=== PATIENT | female | born 1955 | race Caucasian/White ===

== ENCOUNTER → 2016-07-29 | Outpatient (CLI) | payer MEDICARE ==
[~2016-07-29] MED LIST: ADVAIR; ALB6.8IN; ALBU8.5H4 IH; ALN70T PO; ALPR.5T; ALPR1T PO; ASCO500T20 PO; B12 INJECTION IM; CALC-196 PO; CHOL400C8 PO; CYAN10007 PO; FNT25TD TD; GUAI-554 PO; HYDR-3720 PO; LEVO750T24 PO; LEVO75TA6 PO; LEVOTHYROXINE; LORA1TAB PO; LVT.05T PO; NCT21TD TD; NF-ESOM40C; OXYC20TA4 PO; PRD20T PO; RT-SYMBINH IH; SCR1T; SIMV40TA2; SIMV40TA4 PO; TIOT18CA IH; TMXF10T; TMZP15C PO; TOMOXIFEN PO; VITA400T7 PO; VITAMIN E; VNL75CCR PO; VNL75T; ZLP10T PO
--- OUTSIDE RECORDS SUMMARY | 2016-07-29 11:08 | XMS REPORT | Continuity of Care Document ---
Author Author [facility] Organization [facility] Address Unknown Phone Unavailable Care Team Providers Care Product Safety Lead Name Role Phone Miguel Galindo PCP [phone] Source Comments Some departments are not documenting in the electronic medical record. If you do not see the information that you expected, contact Release of Information in the Health Information Management department at [phone] for further assistance in locating additional records.[facility] Active Allergies and Adverse Reactions No Active [...] Taken Blood Pressure 104/72 03/19/2008 9:55 AM SUPERVISOR VARNISH Pulse 73 03/19/2008 9:55 AM SUPERVISOR VARNISH Temperature 36.5 C (97.7 F) 03/19/2008 7:10 AM SUPERVISOR VARNISH Respiratory Rate - - Height 1.575 m (5' 2") 03/19/2008 7:10 AM SUPERVISOR VARNISH Weight 53.524 kg (118 lb) 03/19/2008 7:10 AM SUPERVISOR VARNISH Body Mass Index 21.58 03/19/2008 7:10 AM SUPERVISOR VARNISH Oxygen Saturation 96% 03/19/2008 9:55 AM SUPERVISOR VARNISH Plan of Care Health Maintenance Due Date Last Done Comments Physical (Comprehensive) 12/13/1963 Exam Pertussis Vaccine 12/13/1967 Tetanus Vaccine 1973 Cervical Cancer Screening 1977 Breast Cancer Screening 1996 Influenza Vaccine 01/14/2016 Colorectal Cancer 03/19/2018 03/19/2008 Screening Results from Last 3 Months Not on file
--- NOTE | 2016-08-01 14:13 | Diagnostic Imaging Report ---
EXAMINATION: Bilateral screening mammogram with a Computer Aided Detection (CAD) system. INDICATION: Screening. PERSONAL HISTORY: No current complaints were stated on the questionnaire. COMPARISON: 02/15/2012. FINDINGS: The breasts are composed of heterogeneously dense parenchyma which may decrease mammographic sensitivity. Surgical clips in the medial aspect of the left breast are seen. Allowing for technique and positional differences, no suspicious change is seen. IMPRESSION: Dense breasts with no definite change. ACR BI-RADS Category 2: Benign findings. Result letter will be mailed to the patient. Note: At least 10% of breast cancer is not imaged by mammography. Dictated by: Dictated on workstation # [id number]
== END ==
LOC: RAD 11:04
PROVIDERS: ATTEND Internal Medicine Hematology & Oncology
DX: Z12.31 Encounter for screening mammogram for malignant neoplasm of breast (principal)
CPT/HCPCS: 77067

== ENCOUNTER 2016-08-16 10:21 | Outpatient (RCR) | payer MEDICARE, OTHER ==
--- OUTSIDE RECORDS SUMMARY | 2016-07-19 08:57 | XMS REPORT | Continuity of Care Document ---
Author Author [facility] Organization [facility] Address Unknown Phone Unavailable Care Team Providers Care Packing Inspector Name Role Phone Miguel Galindo PCP [phone] Source Comments Some departments are not documenting in the electronic medical record. If you do not see the information that you expected, contact Release of Information in the Health Information Management department at [phone] for further assistance in locating additional records.[facility] Active Allergies and Adverse Reactions No Active Allergies Current Medications Prescription Sig. Disp. Refills Start End Date Status Date UNITHROID 75 mcg Tab Take 75 mcg by mouth Active Daily. XANAX 1 mg Tab Take 1 mg by mouth Three Active Times Daily. simvastatin (ZOCOR) 40 mg Take 40 mg by mouth At Active tablet Bedtime Daily. EFFEXOR XR 75 mg Cp24 Take 75 mg by mouth Active Daily. tamoxifen (NOLVADEX) 20 Take 20 mg by mouth Active mg tablet Daily. hydrocodone/acetaminophen Take 1 Tab by mouth Every Active (+) (VICODIN) 10/325 mg 6 Hours as needed for tablet Pain. Active Problems Not on file Social History Tobacco Use Types Packs/Day Years Used Date Never Assessed Last Filed Vital Signs Vital Sign Reading Time Taken Blood Pressure 104/72 03/19/2008 9:55 AM LOOPING MACHINE OPERATOR Pulse 73 03/19/2008 9:55 AM LOOPING MACHINE OPERATOR Temperature 36.5 C (97.7 F) 03/19/2008 7:10 AM LOOPING MACHINE OPERATOR Respiratory Rate - - Height 1.575 m (5' 2") 03/19/2008 7:10 AM LOOPING MACHINE OPERATOR Weight 53.524 kg (118 lb) 03/19/2008 7:10 AM LOOPING MACHINE OPERATOR Body Mass Index 21.58 03/19/2008 7:10 AM LOOPING MACHINE OPERATOR Oxygen Saturation 96% 03/19/2008 9:55 AM LOOPING MACHINE OPERATOR Plan of Care Health Maintenance Due Date Last Done Comments Physical (Comprehensive) 12/13/1963 Exam Pertussis Vaccine 12/13/1967 Tetanus Vaccine 1973 Cervical Cancer Screening 1977 Breast Cancer Screening 1996 Influenza Vaccine 01/14/2016 Colorectal Cancer 03/19/2018 03/19/2008 Screening Results from Last 3 Months Not on file
[2016-07-19 09:49] LABS: BASOPHILS % (AUTO) 0 % (0-10); EOSINOPHILS # (AUTO) 0.3 10^3/uL (0.0-0.3); EOSINOPHILS % (AUTO) 4 % (0-10); LYMPHOCYTES # (AUTO) 2.6 X 10^3 (1.0-4.0); LYMPHOCYTES % (AUTO) 37 % (12-44); MEAN CORPUSCULAR HEMOGLOBIN 29 PG (25-34); MEAN CORPUSCULAR HGB CONC 34 G/DL (32-36); MEAN CORPUSCULAR VOLUME 87 FL (80-99); MEAN PLATELET VOLUME 9.2 FL (7.4-10.4); MONOCYTES # (AUTO) 0.5 X 10^3 (0.0-1.0); MONOCYTES % (AUTO) 6 % (0-12); NEUTROPHILS # (AUTO) 3.8 X 10^3 (1.8-7.8); NEUTROPHILS % (AUTO) 53 % (42-75); PLATELET COUNT 267 10^3/uL (130-400); RED BLOOD COUNT 4.46 10^6/uL (4.35-5.85); RED CELL DISTRIBUTION WIDTH 13.2 % (10.0-14.5); WHITE BLOOD COUNT 7.2 10^3/uL (4.3-11.0)
[2016-07-19 10:19] LABS: ALANINE AMINOTRANSFERASE 12 U/L (0-55); ALBUMIN 4.1 G/DL (3.2-4.5); ANION GAP 10 MMOL/L (5-14); ASPARTATE AMINO TRANSFERASE 16 U/L (5-34); BILIRUBIN,TOTAL 0.2 MG/DL (0.1-1.0); BLOOD UREA NITROGEN 20 MG/DL (7-18); BUN/CREATININE RATIO 29; CALCIUM 9.4 MG/DL (8.5-10.1); CARBON DIOXIDE 23 MMOL/L (21-32); CHLORIDE 108 MMOL/L (98-107); CREATININE SERUM 0.68 MG/DL (0.60-1.30); GFR ESTIMATED > 60; GLUCOSE 80 MG/DL (70-105); LACTATE DEHYDROGENASE 178 U/L (125-220); POTASSIUM 3.5 MMOL/L (3.6-5.0); SODIUM 141 MMOL/L (135-145); TOTAL PROTEIN 6.8 G/DL (6.4-8.2)
[2016-07-19 10:42] LABS: THYROID STIMULATING HORMONE 9.68 UIU/ML (0.35-4.94)
[2016-08-16 10:44] LABS: BASOPHILS % (AUTO) 0 % (0-10); EOSINOPHILS # (AUTO) 0.2 10^3/uL (0.0-0.3); EOSINOPHILS % (AUTO) 3 % (0-10); LYMPHOCYTES # (AUTO) 2.5 X 10^3 (1.0-4.0); LYMPHOCYTES % (AUTO) 35 % (12-44); MEAN CORPUSCULAR HEMOGLOBIN 30 PG (25-34); MEAN CORPUSCULAR HGB CONC 34 G/DL (32-36); MEAN CORPUSCULAR VOLUME 88 FL (80-99); MEAN PLATELET VOLUME 9.7 FL (7.4-10.4); MONOCYTES # (AUTO) 0.6 X 10^3 (0.0-1.0); MONOCYTES % (AUTO) 8 % (0-12); NEUTROPHILS # (AUTO) 3.9 X 10^3 (1.8-7.8); NEUTROPHILS % (AUTO) 54 % (42-75); PLATELET COUNT 272 10^3/uL (130-400); RED BLOOD COUNT 4.47 10^6/uL (4.35-5.85); RED CELL DISTRIBUTION WIDTH 12.9 % (10.0-14.5); WHITE BLOOD COUNT 7.2 10^3/uL (4.3-11.0)
[2016-08-16 11:07] LABS: ALANINE AMINOTRANSFERASE 8 U/L (0-55); ALBUMIN 4.1 G/DL (3.2-4.5); ANION GAP 8 MMOL/L (5-14); ASPARTATE AMINO TRANSFERASE 16 U/L (5-34); BILIRUBIN,TOTAL 0.2 MG/DL (0.1-1.0); BLOOD UREA NITROGEN 18 MG/DL (7-18); BUN/CREATININE RATIO 26; CALCIUM 9.4 MG/DL (8.5-10.1); CARBON DIOXIDE 26 MMOL/L (21-32); CHLORIDE 105 MMOL/L (98-107); CREATININE SERUM 0.68 MG/DL (0.60-1.30); GFR ESTIMATED > 60; GLUCOSE 69 MG/DL (70-105); POTASSIUM 3.5 MMOL/L (3.6-5.0); SODIUM 139 MMOL/L (135-145); TOTAL PROTEIN 6.7 G/DL (6.4-8.2)
[2016-08-16 11:27] LABS: THYROID STIMULATING HORMONE 6.97 UIU/ML (0.35-4.94)
[2016-10-11] MEDS ORDERED: BENZ-13 PO (21:22)
[2016-10-11] MEDS ORDERED: BUDE90AE2 IH (21:22)
[2016-10-11] MEDS ORDERED: D-ME118S7 PO (21:22)
[2016-10-11] MEDS ORDERED: CEFD300C3 PO (21:22)
[2016-10-11] MEDS ORDERED: METH4TAB PO (21:22)
== END 2016-10-17 | disposition home or self-care (01) ==
LOC: ONC 10:21
PROVIDERS: ATTEND Internal Medicine Hematology & Oncology
DX: C83.84 Other non-follicular lymphoma, lymph nodes of axilla and upper limb (principal); Z85.3 Personal history of malignant neoplasm of breast; E03.9 Hypothyroidism, unspecified; J44.9 Chronic obstructive pulmonary disease, unspecified; K59.1 Functional diarrhea; R13.10 Dysphagia, unspecified; G47.30 Sleep apnea, unspecified; F17.210 Nicotine dependence, cigarettes, uncomplicated; Z79.899 Other long term (current) drug therapy
CPT/HCPCS: 36415; 80053; 83615; 84443; 85025; 99213

== ENCOUNTER 2016-10-11 19:04 | Emergency (ER) | payer MEDICARE ==
[~2016-10-11] VITALS: Ht 154.9 cm; Wt 52.2 kg
[2016-10-11] MEDS ORDERED: methylPREDNISolone 125 MG (Solu-MEDROL) VIAL IV STA (19:27)
[2016-10-11] MEDS ORDERED: RT-ALBUTEROL/IPRATROPIUM 3 ML (DUONEB) VIAL INH ONE (19:30)
[2016-10-11] MEDS ORDERED: DEXAMETHASONE 4 MG/ML SDV (DECADRON) IH ONE (19:30)
[2016-10-11 20:02] LABS: BASOPHILS % (AUTO) 0 % (0-10); EOSINOPHILS # (AUTO) 0.6 10^3/uL (0.0-0.3); EOSINOPHILS % (AUTO) 9 % (0-10); LYMPHOCYTES # (AUTO) 2.2 X 10^3 (1.0-4.0); LYMPHOCYTES % (AUTO) 30 % (12-44); MEAN CORPUSCULAR HEMOGLOBIN 29 PG (25-34); MEAN CORPUSCULAR HGB CONC 33 G/DL (32-36); MEAN CORPUSCULAR VOLUME 89 FL (80-99); MEAN PLATELET VOLUME 10.1 FL (7.4-10.4); MONOCYTES # (AUTO) 0.6 X 10^3 (0.0-1.0); MONOCYTES % (AUTO) 8 % (0-12); NEUTROPHILS # (AUTO) 3.9 X 10^3 (1.8-7.8); NEUTROPHILS % (AUTO) 53 % (42-75); PLATELET COUNT 224 10^3/uL (130-400); RED BLOOD COUNT 4.54 10^6/uL (4.35-5.85); RED CELL DISTRIBUTION WIDTH 12.9 % (10.0-14.5); WHITE BLOOD COUNT 7.3 10^3/uL (4.3-11.0)
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
[2016-10-11 20:12] LABS: ABG BASE EXCESS -1.6 MMOL/L (-2.5-2.5); ABG HCO3 23 MMOL/L (23-27); ABG OXYGEN SATURATION 100 % (94-100); ABG PCO2 45 MMHG (35-45); ABG PO2 195 MMHG (79-93); ABG TCO2 24.7 MMOL/L (21.0-31.0)
[2016-10-11 20:13] LABS: ABG PH 7.34 (7.37-7.43); ALLENS TEST POSITIVE
[2016-10-11 20:14] LABS: PATIENT TEMP 98.3
--- NOTE | 2016-10-11 20:19 | Diagnostic Imaging Report ---
INDICATION: Shortness of air and cough for 2 days COMPARISON STUDY: Chest from 02/18/13. FINDINGS: Frontal view of the chest demonstrates the lungs to be clear with emphysematous changes. Foreign body overlies the left lung apex. Heart size and vascularity are normal. Postoperative changes are seen in the right shoulder. IMPRESSION: There are some emphysematous changes mainly in the right upper lung. No acute findings are present. Dictated by: Dictated on workstation # [id number]
[2016-10-11 20:21] LABS: ALANINE AMINOTRANSFERASE 10 U/L (0-55); ALBUMIN 3.8 G/DL (3.2-4.5); ANION GAP 9 MMOL/L (5-14); ASPARTATE AMINO TRANSFERASE 15 U/L (5-34); BILIRUBIN,TOTAL 0.2 MG/DL (0.1-1.0); BLOOD UREA NITROGEN 12 MG/DL (7-18); BUN/CREATININE RATIO 20; CALCIUM 9.4 MG/DL (8.5-10.1); CARBON DIOXIDE 21 MMOL/L (21-32); CHLORIDE 112 MMOL/L (98-107); CREATINE KINASE 61 U/L (29-168); CREATININE SERUM 0.59 MG/DL (0.60-1.30); GFR ESTIMATED > 60; GLUCOSE 93 MG/DL (70-105); MAGNESIUM 1.7 MG/DL (1.8-2.4); POTASSIUM 3.9 MMOL/L (3.6-5.0); SODIUM 142 MMOL/L (135-145); TOTAL PROTEIN 6.1 G/DL (6.4-8.2)
[2016-10-11 20:22] LABS: ALCOHOL < 10 MG/DL (<10)
[2016-10-11 20:28] LABS: TROPONIN I < 0.30 NG/ML (<0.30)
[2016-10-11 20:55] LABS: INR 0.9 (0.8-1.4); PROTHROMBIN TIME PATIENT 11.9 SEC (12.2-14.7)
[2016-10-11] MEDS ORDERED: cefTRIAXone 1 GM (ROCEPHIN) VIAL ONE (20:58)
[2016-10-11] MEDS ORDERED: NS (IVPB) 50 ML ONE (20:59)
[2016-10-11] MEDS ORDERED: PROMETHAZINE/DM SYRUP (PHENERGDAN DM) 5 ML UDC PO ONE (21:00)
[2016-10-11] MEDS ORDERED: BENZONATATE 100 MG (TESSALON) CAPSULE PO SCH (21:00)
[2016-10-11] MEDS ORDERED: cefTRIAXone INJECTION 1,000 MG in NS (IVPB) 50 ML IV ONE (21:00)
[2016-10-11] MEDS ORDERED: METH4TAB PO (21:22)
[2016-10-11] MEDS ORDERED: D-ME118S7 PO (21:22)
[2016-10-11] MEDS ORDERED: BUDE90AE2 IH (21:22)
[2016-10-11] MEDS ORDERED: BENZ-13 PO (21:22)
[2016-10-11] MEDS ORDERED: CEFD300C3 PO (21:22)
[2016-10-11 21:51] VITALS: BP 139/87
== END 2016-10-11 21:51 | disposition home or self-care (01) ==
LOC: EDUNIT# 19:04 → ER 19:05
DX: J44.9 Chronic obstructive pulmonary disease, unspecified (principal); F17.210 Nicotine dependence, cigarettes, uncomplicated; Z79.899 Other long term (current) drug therapy; Z91.14 Patient's other noncompliance with medication regimen; Z85.3 Personal history of malignant neoplasm of breast; Z85.72 Personal history of non-Hodgkin lymphomas; Z92.3 Personal history of irradiation; Z92.21 Personal history of antineoplastic chemotherapy
CPT/HCPCS: 36415; 71010; 80053; 80306; 80320; 82550; 82553; 82805; 83605; 83735; 83880; 84484; 85025; 85610; 85730; 87040; 93005; 93041; 94640; 94644; 94664

== ENCOUNTER → 2018-02-08 | Outpatient (CLI) | payer MEDICARE ==
[~2018-02-08] MED LIST changes: +BENZ100C18 PO; +BUDE90AE2 IH; +CEFD300C3 PO; +D-ME118S7 PO; +METH4TAB PO
--- NOTE | 2018-02-09 19:46 | Diagnostic Imaging Report ---
EXAMINATION: Digital mammogram bilateral screening. INDICATION: Screening. The current study was also evaluated with a Computer Aided Detection (CAD) system. 3-D tomosynthesis was also performed and reviewed. COMPARISON: This study was compared to the prior exams of 07/29/2016 and 02/15/2012. At this time, there are no current complaints. FINDINGS: The fibroglandular tissue in both breasts is extremely dense. This does limit the sensitivity of this exam. By history, the patient has had a prior lumpectomy on the left for carcinoma in 2003. The surgical clips in the medial aspect of the left breast seen on the prior study are again evident and no different. There is no sign of recurrent malignancy in this area. The overall appearance of the breasts has not changed significantly either. There is no primary or secondary sign of malignancy noted. IMPRESSION: 1. The postsurgical changes involving the left breast appear stable. There is no evidence for malignancy involving either breast. 2. The patient should have her annual bilateral screening mammogram on schedule in January of 2019. ACR BI-RADS Category 1: Negative. Result letter will be mailed to the patient. Note: At least 10% of breast cancer is not imaged by mammography. Dictated by: Dictated on workstation # [id number]
== END ==
LOC: RAD 10:37
PROVIDERS: ATTEND Physician Assistant
DX: Z12.31 Encounter for screening mammogram for malignant neoplasm of breast (principal); Z85.3 Personal history of malignant neoplasm of breast; Z98.890 Other specified postprocedural states
CPT/HCPCS: 77067

== ENCOUNTER 2018-07-13 12:06 | Emergency (ER) | payer MEDICARE ==
[~2018-07-13] VITALS: Ht 157.5 cm; Wt 54.4 kg
[2018-07-13 12:28] LABS: BASOPHILS % (AUTO) 0 % (0-10); EOSINOPHILS # (AUTO) 0.7 10^3/uL (0.0-0.3); EOSINOPHILS % (AUTO) 8 % (0-10); HEMATOCRIT 47 % (35-52); HEMOGLOBIN 14.9 G/DL (11.5-16.0); LYMPHOCYTES # (AUTO) 2.9 X 10^3 (1.0-4.0); LYMPHOCYTES % (AUTO) 32 % (12-44); MEAN CORPUSCULAR HEMOGLOBIN 29 PG (25-34); MEAN CORPUSCULAR HGB CONC 32 G/DL (32-36); MEAN CORPUSCULAR VOLUME 90 FL (80-99); MEAN PLATELET VOLUME 10.2 FL (7.4-10.4); MONOCYTES # (AUTO) 0.6 X 10^3 (0.0-1.0); MONOCYTES % (AUTO) 7 % (0-12); NEUTROPHILS # (AUTO) 4.8 X 10^3 (1.8-7.8); NEUTROPHILS % (AUTO) 53 % (42-75); PLATELET COUNT 236 10^3/uL (130-400); RED CELL DISTRIBUTION WIDTH 13.1 % (10.0-14.5)
[2018-07-13] MEDS ORDERED: RT-IPRATROPIUM (ATROVENT) 0.5MG/2.5ML AMP IH ONE ×2 (12:29→12:45)
[2018-07-13] MEDS ORDERED: RT-ALBUTEROL SULF 2.5 MG/3 ML PRE-MIX VIAL ONE (12:29)
[2018-07-13] MEDS ORDERED: RT-ALBUTEROL SULF 2.5 MG/3 ML PRE-MIX VIAL INH ONE ×2 (12:45)
--- NOTE | 2018-07-13 13:00 | NUR ---
ATTEMPT TO REPORT ROOM NOT EMPTY
--- NOTE | 2018-07-13 13:05 | ED Respiratory ---
General Chief Complaint: Respiratory Problems Stated Complaint: SOB Source: patient Exam Limitations: no limitations History of Present Illness Date Seen by Provider: Jul 13, 2018 Time Seen by Provider: 12:56 Initial Comments 62-year-old white female presents with increasing shortness of breath for the last several days. Patient has a history of COPD and has required steroids in the past. She denies fever or productive cough. Patient denies associated headache, stiff neck, photophobia, nausea vomiting or diarrhea. Allergies and Home Medications Allergies Coded Allergies: NKANo Known Allergies (Verified Allergy, Unknown, 04/27/07) oxycodone HCl (Verified Adverse Reaction, Severe, BLACK OUT, 12/04/11) morphine (Verified Adverse Reaction, Intermediate, Blackout, 10/11/16) Home Medications Albuterol Sulfate 8.5 Gm Hfa.aer.ad, 8.5 GM IH Q4H Prescribed by: CINDY ARGUELLO on 02/18/13 102 Ascorbic Acid 500 Mg Tablet, 500 MG PO DAILY, (Reported) Benzonatate 100 Mg Capsule, 1-2 TAB PO TID Prescribed by: DAWSON ALVARADO on 10/11/162121 Budesonide 90 Mcg Aer.pow.ba, 90 MCG IH BID Prescribed by: DAWSON ALVARADO on 10/11/162121 Budesonide/Formoterol Fumarate 1 Puff Puff, 2 PUFF IH RTBID Prescribed by: CINDY ARGUELLO on 02/18/13 102 Calcium Carbonate/Vitamin D3 1 Each Tablet, 1 TAB PO DAILY, (Reported) Cefdinir 300 Mg Capsule, 300 MG PO BID FOR INFECTION Prescribed by: DAWSON ALVARADO on 10/11/162121 Cholecalciferol (Vitamin D3) 400 Unit Capsule, 400 UNIT PO DAILY, (Reported) Cyanocobalamin 1,000 Mcg Tablet.sa, 250 MCG PO DAILY, (Reported) D-Methorphan Hb/Prometh HCl 118 Ml Syrup, 1-2 TSP PO Q4H Prescribed by: DAWSON ALVARADO on 10/11/162121 Fentanyl 1 Ea Patch, 25 MCG TD Q72H Prescribed by: CINDY ARGUELLO on 02/18/13 102 Guaifenesin 100 Mg/5 Ml Syrp, 200 MG PO QID PRN Prescribed by: CINDY ARGUELLO on 02/18/13 1022 Hydrocodone Bit/Acetaminophen 1 Each Tablet, 10-325 MG PO Q4H PRN, (Reported) NEEDED FOR PAIN Levofloxacin 750 Mg Tablet, 750 MG PO DAILY@1100 Prescribed by: CINDY ARGUELLO on 02/18/13 1022 Levothyroxine Sodium 75 Mcg Tablet, 75 MCG PO DAILY, (Reported) Lorazepam 1 Mg Tab, 1 MG PO BID PRN, (Reported) NEEDED FOR ANXIETY Methylprednisolone 4 Mg Tab.ds.pk, 4 MG PO UD Prescribed by: DAWSON ALVARADO on 10/11/162121 Nicotine 21 Mg Box, 21 MG TD DAILY Prescribed by: CINDY ARGUELLO on 02/18/13 1022 Prednisone 20 Mg Tab, 20 MG PO DAILY@0700 Prescribed by: CINDY ARGUELLO on 02/18/13 1022 Simvastatin 40 Mg Tablet, 40 MG PO HS, (Reported) Tiotropium [place] 18 Mcg Cap.w.dev, 0 INH IH DAILY@0800 Prescribed by: CINDY ARGUELLO on 02/18/13 1022 Venlafaxine Hcl 75 Mg Cap, 75 MG PO BID, (Reported) Vitamin E Acid Succinate 400 Unit Tablet, 400 UNIT PO DAILY, (Reported) Patient Home Medication List Home Medication List Reviewed: Yes Review of Systems Review of Systems Constitutional: No chills, No fever; weakness EENTM: No blurred vision, No vision loss Respiratory: see HPI, cough, dyspnea on exertion Cardiovascular: No chest pain Gastrointestinal: No abdominal pain, No diarrhea, No nausea, No vomiting Genitourinary: no symptoms reported : No Musculoskeletal: No gout, No joint pain Skin: No rash Psychiatric/Neurological: No Symptoms Reported Hematologic/Lymphatic: No Symptoms Reported Immunological/Allergic: no symptoms reported Past Omkjimw-Rimpmm-Xhfzqp Hx Past Med/Social Hx: Reviewed Nursing Past Med/Soc Hx Patient Social History Type Used: Cigarettes 2nd Hand Smoke Exposure: Yes Recent Foreign Travel: No Contact w/Someone Who Travel: No Recent Hopitalizations: No Immunizations Up To Date Tetanus Booster (TDap): Less than 5yrs Date of Pneumonia Vaccine: Jan 14, 2012 Date of Influenza Vaccine: Feb 12, 2011 Seasonal Allergies Seasonal Allergies: No Past Medical History Surgeries: Yes (CARPAL TUNNEL, HAND SURGERY) Abdominal, Appendectomy, Breast, Orthopedic, Tubal Ligation Respiratory: Yes COPD Cardiac: Yes (carotid artery problem) High Cholesterol, Peripheral Vascular Neurological: No 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: No SIEBEL ARCHITECT History: Menopausal Sexually Transmitted Disease: No Genitourinary: No Gastrointestinal: No Gastroesophageal Reflux, Hiatal Hernia Musculoskeletal: Yes (athritis lower back) Degenerate Disk Disease, Arthritis, Chronic Back Pain Endocrine: Yes Hypothyroidsim HEENT: No Cancer: Yes Breast, Lymphoma Psychosocial: Yes Anxiety Integumentary: No Blood Disorders: No Physical Exam Vital Signs - First Documented 07/13/18 07/13/18 12:06 12:46 Temp 98.8 Pulse 86 Resp 18 B/P (MAP) 160/94 (116) Pulse Ox 88 O2 Delivery Nasal Cannula O2 Flow Rate 2.00 Capillary Refill : Height: 5'1.00" Weight: 115lbs. oz. 52.305163nw; BMI Method:Stated General Appearance: WD/WN, no apparent distress Eyes: Bilateral Eye Normal Inspection HEENT: normal ENT inspection Neck: non-tender, full range of motion, supple Respiratory: normal breath sounds, wheezing Cardiovascular: regular rate, rhythm Gastrointestinal: normal bowel sounds, non tender, soft Extremities: normal range of motion, non-tender, normal inspection Neurologic/Psychiatric: no motor/sensory deficits, alert, normal mood/affect Skin: normal color, warm/dry Progress/Results/Core Measures Suspected Sepsis SIRS Temperature: Pulse: Respiratory Rate: Laboratory Tests 07/13/18 12:15: White Blood Count 9.0 Blood Pressure / Mean: Laboratory Tests 07/13/18 12:15: Platelet Count 236 Results/Orders Lab Results Laboratory Tests Test 07/13/18 12:15 Range/Units White Blood Count 9.0 4.3-11.0 10^3/uL Red Blood Count 5.19 4.35-5.85 10^6/uL Hemoglobin 14.9 11.5-16.0 G/DL Hematocrit 47 35-52 % Mean Corpuscular Volume 90 80-99 FL Mean Corpuscular Hemoglobin 29 25-34 PG Mean Corpuscular Hemoglobin Concent 32 32-36 G/DL Red Cell Distribution Width 13.1 10.0-14.5 % Platelet Count 236 130-400 10^3/uL Mean Platelet Volume 10.2 7.4-10.4 FL Neutrophils (%) (Auto) 53 42-75 % Lymphocytes (%) (Auto) 32 12-44 % Monocytes (%) (Auto) 7 0-12 % Eosinophils (%) (Auto) 8 0-10 % Basophils (%) (Auto) 0 0-10 % Neutrophils # (Auto) 4.8 1.8-7.8 X 10^3 Lymphocytes # (Auto) 2.9 1.0-4.0 X 10^3 Monocytes # (Auto) 0.6 0.0-1.0 X 10^3 Eosinophils # (Auto) 0.7 H 0.0-0.3 10^3/uL Basophils # (Auto) 0.0 0.0-0.1 10^3/uL D-Dimer 0.42 0.00-0.49 UG/ML Troponin I < 0.028 <0.028 NG/ML B-Type Natriuretic Peptide 12.3 <100.0 PG/ML My Orders Orders - MIS DOUGLAS MD Chest 1 View, Ap/Pa Only (07/13/18 12:19) Cbc With Automated Diff (07/13/18 12:19) Fibrin Degradation Products (07/13/18 12:19) BNP (07/13/18 12:19) Troponin I (07/13/18 12:19) Ekg Tracing (07/13/18 12:19) Ipratropium 0.02% Neb Solution (Atrovent (07/13/18 12:29) Albuterol Pre-Mix Nebs (Rt) (Proventil (07/13/18 12:29) Albuterol Pre-Mix Nebs (Rt) (Proventil (07/13/18 12:45) Svn Small Volume Nebulizer (07/13/18 12:33) Ipratropium 0.02% Neb Solution (Atrovent (07/13/18 12:45) Svn Small Volume Nebulizer (07/13/18 12:33) Albuterol Pre-Mix Nebs (Rt) (Proventil (07/13/18 12:45) Svn Small Volume Nebulizer (07/13/18 12:43) Methylprednisolone Sod Succ (Solu-Medrol (07/13/18 13:15) Medications Given in ED Current Medications Medications Dose Ordered Sig/Phani Route Start Time Stop Time Status Last Admin Dose Admin Albuterol Sulfate 2.5 mg ONCE ONCE INH 07/13/18 12:45 07/13/18 12:46 DC 07/13/18 12:42 2.5 MG Albuterol Sulfate 12.5 mg ONCE ONCE INH 07/13/18 12:45 07/13/18 12:46 DC 07/13/18 12:49 12.5 MG Methylprednisolone Sodium Succinate 125 mg ONCE ONCE IVP 07/13/18 13:15 07/13/18 13:16 DC 07/13/18 13:55 125 MG Vital Signs/I&O 07/13/18 07/13/18 12:06 12:46 Temp 98.8 Pulse 86 Resp 18 B/P (MAP) 160/94 (116) Pulse Ox 88 100 O2 Delivery Nasal Cannula O2 Flow Rate 2.00 Capillary Refill : Progress Note : Time: 14:07 Progress Note The patient's chest x-ray failed to demonstrate evidence of infiltrate. CBC was unremarkable. The patient's BNP and d-dimer were unremarkable. Patient's troponin was within normal limits. The patient was improved with solu-medrol and albuterol. Discussed findings with patient. I encouraged her to employ the prednisone and azithromycin which I prescribed. I find her return if she had any problems or questions. I recommend that she follow-up with her doctor on Monday. Departure Impression Primary Impression: COPD exacerbation Disposition: HOME, SELF-CARE Condition: Improved Departure-Patient Inst. Decision time for Depature: 14:12 Referrals: [facility] [place] Primary Care Physician FELISHA CHAPIN (Family) Primary Care Physician Patient Instructions: Exacerbation of COPD (DC) Add. Discharge Instructions: Prednisone and azithromycin as prescribed. Nebulized treatments with albuterol home. Close follow-up with her doctor on Monday. Return if any problems or questions. All discharge instructions reviewed with patient and/or family. Voiced understanding. MIS DOUGLAS MD Jul 13, 2018 13:05
[2018-07-13] MEDS ORDERED: methylPREDNISolone 125 MG (Solu-MEDROL) VIAL IVP ONE (13:15)
[2018-07-13 14:42] VITALS: BP 164/91
--- NOTE | 2018-07-13 15:48 | Diagnostic Imaging Report ---
PATIENT HISTORY: Shortness of air, hypoxia. TECHNIQUE: Single frontal view of the chest. COMPARISON: 10/11/2016. FINDINGS: Lung volumes are mildly large. No focal consolidation is seen. Linear opacities in the right midlung, likely represent chronic scarring and appear stable since 2017. Suture anchors are seen in the right humeral head. There is moderate right convex curvature of the lower thoracic spine which is stable. There appears to be an old right rib fracture. The cardiac silhouette is stable in size. There is aortic atherosclerosis. There is no pleural effusion or pneumothorax. IMPRESSION: 1. Mildly large lung volumes with chronic scarring in the right lung. No acute pulmonary abnormality is seen. Dictated by: Dictated on workstation # [id number]
== END 2018-07-13 14:39 | disposition home or self-care (01) ==
LOC: EDUNIT# 12:06 → ER 12:09
DX: J44.1 Chronic obstructive pulmonary disease with (acute) exacerbation (principal); E78.00 Pure hypercholesterolemia, unspecified; I73.9 Peripheral vascular disease, unspecified; K21.9 Gastro-esophageal reflux disease without esophagitis; E03.9 Hypothyroidism, unspecified; F41.9 Anxiety disorder, unspecified; Z85.72 Personal history of non-Hodgkin lymphomas; Z85.3 Personal history of malignant neoplasm of breast; Z87.19 Personal history of other diseases of the digestive system; Z88.5 Allergy status to narcotic agent; Z79.51 Long term (current) use of inhaled steroids; Z79.52 Long term (current) use of systemic steroids; Z77.22 Contact with and (suspected) exposure to environmental tobacco smoke (acute) (chronic); Z90.49 Acquired absence of other specified parts of digestive tract; Z98.51 Tubal ligation status; Z98.890 Other specified postprocedural states
CPT/HCPCS: 36415; 71045; 83880; 84484; 85025; 85379; 94640

== ENCOUNTER 2018-07-24 08:13 | Emergency (ER) | payer MEDICARE ==
[~2018-07-24] VITALS: Ht 157.5 cm; Wt 54.4 kg
[2018-07-24] MEDS ORDERED: NS IV 1000 ML 1,000 ML IV ONE (08:35)
[2018-07-24 08:42] LABS: BASOPHILS % (AUTO) 0 % (0-10); EOSINOPHILS # (AUTO) 1.2 10^3/uL (0.0-0.3); EOSINOPHILS % (AUTO) 10 % (0-10); HEMATOCRIT 44 % (35-52); HEMOGLOBIN 14.5 G/DL (11.5-16.0); LYMPHOCYTES # (AUTO) 2.3 X 10^3 (1.0-4.0); LYMPHOCYTES % (AUTO) 19 % (12-44); MEAN CORPUSCULAR HEMOGLOBIN 29 PG (25-34); MEAN CORPUSCULAR HGB CONC 33 G/DL (32-36); MEAN CORPUSCULAR VOLUME 89 FL (80-99); MONOCYTES # (AUTO) 0.8 X 10^3 (0.0-1.0); MONOCYTES % (AUTO) 7 % (0-12); NEUTROPHILS % (AUTO) 65 % (42-75); PLATELET COUNT 302 10^3/uL (130-400); RED CELL DISTRIBUTION WIDTH 12.8 % (10.0-14.5); WHITE BLOOD COUNT 12.4 10^3/uL (4.3-11.0)
[2018-07-24 08:50] LABS: INR 0.9 (0.8-1.4); PROTHROMBIN TIME PATIENT 11.8 SEC (12.2-14.7)
[2018-07-24] MEDS ORDERED: RT-ALBUTEROL SULF 2.5 MG/3 ML PRE-MIX VIAL INH STA ×2 (08:51→13:04)
[2018-07-24 08:57] LABS: ALANINE AMINOTRANSFERASE 12 U/L (0-55); ALBUMIN 3.9 GM/DL (3.2-4.5); ALKALINE PHOSPHATASE 95 U/L (40-136); BILIRUBIN,TOTAL 0.2 MG/DL (0.1-1.0); BUN/CREATININE RATIO 16; CALCIUM 9.5 MG/DL (8.5-10.1); CARBON DIOXIDE 23 MMOL/L (21-32); CHLORIDE 107 MMOL/L (98-107); CREATININE SERUM 0.63 MG/DL (0.60-1.30); GFR ESTIMATED > 60; GLUCOSE 96 MG/DL (70-105); POTASSIUM 3.3 MMOL/L (3.6-5.0); SODIUM 141 MMOL/L (135-145); TOTAL PROTEIN 6.5 GM/DL (6.4-8.2)
[2018-07-24] MEDS ORDERED: RT-ALBUTEROL/IPRATROPIUM 3 ML (DUONEB) VIAL INH ONE (09:00)
--- NOTE | 2018-07-24 09:02 | ED General ---
General Chief Complaint: Respiratory Problems Stated Complaint: TROUBLE BREATHING Nursing Triage Note: PT AMB TO [facility] 3 WITH COMPLAINT OF SOA. PT STATES SHE WAS SEEN HERE A WEEK AGO FOR SAME SYMPTOMS. STATES SYMPTOMS HAVE NOT IMPROVED. Nursing Sepsis Screen: No Definite Risk Source of Information: Patient Exam Limitations: No Limitations History of Present Illness Date Seen by Provider: Jul 24, 2018 Time Seen by Provider: 08:39 Initial Comments Here with report of shortness of air. She was seen here a week ago for the same and has not gotten better. She is complaining her steroids and antibiotics but has had no improvement. She is using her breathing treatments 4 times a day and that is not helping. She normally follows at the clinic. She has had changes doctor at the clinic but still has access to the clinic. Denies nausea or vomiting. Denies sore throat. Does have nasal congestion. Has fever today. She has not been unable to smoke for 2 weeks due to the illness. Timing/Duration: 1 Week, Getting Worse Severity: Moderate Associated Systoms: No Chest Pain; Cough, Fever/Chills; No Nausea/Vomiting; Shortness of Air; No Weakness Allergies and Home Medications Allergies Coded Allergies: oxycodone HCl (Verified Adverse Reaction, Severe, BLACK OUT, 12/04/11) morphine (Verified Adverse Reaction, Intermediate, Blackout, 10/11/16) Home Medications Albuterol Sulfate 8.5 Gm Hfa.aer.ad, 8.5 GM IH Q4H Prescribed by: CINDY ARGUELLO on 02/18/13 1022 Albuterol Sulfate 2.5 Mg/3 Ml Vial.neb, 2.5 MG INH Q4H PRN for WHEEZING Prescribed by: JOY HERNÁNDEZ on 07/24/18 1309 Ascorbic Acid 500 Mg Tablet, 500 MG PO DAILY, (Reported) Benzonatate 100 Mg Capsule, 1-2 TAB PO TID Prescribed by: DAWSON ALVARADO on 10/11/162121 Budesonide 90 Mcg Aer.pow.ba, 90 MCG IH BID Prescribed by: DAWSON ALVARADO on 10/11/162121 Budesonide/Formoterol Fumarate 1 Puff Puff, 2 PUFF IH RTBID Prescribed by: CINDY ARGUELLO on 02/18/13 1022 Calcium Carbonate/Vitamin D3 1 Each Tablet, 1 TAB PO DAILY, (Reported) Cefdinir 300 Mg Capsule, 300 MG PO BID FOR INFECTION Prescribed by: DAWSON ALVARADO on 10/11/162121 Cholecalciferol (Vitamin D3) 400 Unit Capsule, 400 UNIT PO DAILY, (Reported) Cyanocobalamin 1,000 Mcg Tablet.sa, 250 MCG PO DAILY, (Reported) D-Methorphan Hb/Prometh HCl 118 Ml Syrup, 1-2 TSP PO Q4H Prescribed by: DAWSON ALVARADO on 10/11/162121 Fentanyl 1 Ea Patch, 25 MCG TD Q72H Prescribed by: CINDY ARGUELLO on 02/18/131021 Guaifenesin 100 Mg/5 Ml Syrp, 200 MG PO QID PRN Prescribed by: CINDY ARGUELLO on 02/18/13 102 Hydrocodone Bit/Acetaminophen 1 Each Tablet, 10-325 MG PO Q4H PRN, (Reported) NEEDED FOR PAIN Levofloxacin 750 Mg Tablet, 750 MG PO DAILY@1100 Prescribed by: CINDY ARGUELLO on 02/18/13 102 Levothyroxine Sodium 75 Mcg Tablet, 75 MCG PO DAILY, (Reported) Lorazepam 1 Mg Tab, 1 MG PO BID PRN, (Reported) NEEDED FOR ANXIETY Methylprednisolone 4 Mg Tab.ds.pk, 4 MG PO UD Prescribed by: DAWSON ALVARADO on 10/11/162121 Methylprednisolone 4 Mg Tab.ds.pk, 4 MG PO UD PER DOSE PACK INSTRUCTIONS Prescribed by: JOY HERNÁNDEZ on 07/24/18 1309 Nicotine 21 Mg Box, 21 MG TD DAILY Prescribed by: CINDY ARGUELLO on 02/18/13 102 Prednisone 20 Mg Tab, 20 MG PO DAILY@0700 Prescribed by: CINDY ARGUELLO on 02/18/13 1022 Simvastatin 40 Mg Tablet, 40 MG PO HS, (Reported) Tiotropium [place] 18 Mcg Cap.w.dev, 0 INH IH DAILY@0800 Prescribed by: CINDY ARGUELLO on 02/18/13 102 Venlafaxine Hcl 75 Mg Cap, 75 MG PO BID, (Reported) Vitamin E Acid Succinate 400 Unit Tablet, 400 UNIT PO DAILY, (Reported) Patient Home Medication List Home Medication List Reviewed: Yes Review of Systems Review of Systems Constitutional: see HPI; No chills; fever EENTM: nose congestion; No throat pain Respiratory: cough, short of breath, wheezing Cardiovascular: no symptoms reported Gastrointestinal: no symptoms reported Genitourinary: no symptoms reported Musculoskeletal: no symptoms reported Skin: no symptoms reported All Other Systems Reviewed Negative Unless Noted: Yes Past Bboojkr-Ivbnhl-Fqoyff Hx Past Med/Social Hx: Reviewed Nursing Past Med/Soc Hx Patient Social History Alcohol Use: Denies Use Recreational Drug Use: No Smoking Status: Current Everyday Smoker Type Used: Cigarettes Former Smoker, Quit: Jul 17, 2018 2nd Hand Smoke Exposure: Yes Recent Foreign Travel: No Contact w/Someone Who Travel: No Recent Infectious Disease Expo: No Recent Hopitalizations: No Immunizations Up To Date Tetanus Booster (TDap): Less than 5yrs Date of Pneumonia Vaccine: Jan 14, 2012 Date of Influenza Vaccine: Feb 12, 2011 Seasonal Allergies Seasonal Allergies: No Past Medical History Surgeries: Yes (CARPAL TUNNEL, HAND SURGERY) Abdominal, Appendectomy, Breast, Orthopedic, Tubal Ligation Respiratory: Yes COPD Cardiac: Yes (carotid artery problem) High Cholesterol, Peripheral Vascular Neurological: No 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: No COLLATOR History: Menopausal Sexually Transmitted Disease: No Genitourinary: No Gastrointestinal: No Gastroesophageal Reflux, Hiatal Hernia Musculoskeletal: Yes (athritis lower back) Degenerate Disk Disease, Arthritis, Chronic Back Pain Endocrine: Yes Hypothyroidsim HEENT: No Cancer: Yes Breast, Lymphoma Psychosocial: Yes Anxiety Integumentary: No Blood Disorders: No Family Medical History Reviewed Nursing Family Hx Physical Exam-Suspected Sepsis Physical Exam Vital Signs Vital Signs - First Documented 07/24/18 08:16 Temp 99.7 Pulse 112 Resp 22 B/P (MAP) 145/94 (111) Pulse Ox 98 O2 Delivery Room Air Capillary Refill : Less Than 3 Seconds Blood Pressure Mean: 111 Height, Weight, BMI Height: 5'2.00" Weight: 120lbs. oz. 54.453512ex; BMI Method:Stated General Appearance: No Apparent Distress, WD/WN HEENT: PERRL/EOMI, Pharynx Normal Neck: Non Tender, Supple Respiratory: Decreased Breath Sounds, Expiration; No Respiratory Distress; Wheezing Cardiovascular: No Murmur, Tachycardia Gastrointestinal: Non Tender, Soft Back: Normal Inspection, No CVA Tenderness, No Vertebral Tenderness Extremity: Normal Capillary Refill, Normal Inspection, Normal Range of Motion Neurologic/Psychiatric: Alert, Oriented x3 Skin: normal color, warm/dry Focused Exam Lactate Level 07/24/18 08:29: Lactic Acid Level 1.74 Lactic Acid Level Progress/Results/Core Measures Suspected Sepsis Recent Fever Within 48 Hours: No Infection Criteria Present: None New/Unexplained Altered Menta: No Sepsis Screen: No Definite Risk SIRS Temperature:99.7 Pulse: 112 Respiratory Rate: 22 Laboratory Tests 07/24/18 08:29: White Blood Count 12.4H Blood Pressure 145 /94 Mean: 111 07/24/18 08:29: Lactic Acid Level 1.74 Laboratory Tests 07/24/18 08:29: Creatinine 0.63, INR Comment 0.9, Platelet Count 302, Total Bilirubin 0.2 Results/Orders Lab Results Laboratory Tests Test 07/24/18 08:29 07/24/18 12:28 Range/Units White Blood Count 12.4 H 4.3-11.0 10^3/uL Red Blood Count 4.97 4.35-5.85 10^6/uL Hemoglobin 14.5 11.5-16.0 G/DL Hematocrit 44 35-52 % Mean Corpuscular Volume 89 80-99 FL Mean Corpuscular Hemoglobin 29 25-34 PG Mean Corpuscular Hemoglobin Concent 33 32-36 G/DL Red Cell Distribution Width 12.8 10.0-14.5 % Platelet Count 302 130-400 10^3/uL Mean Platelet Volume 10.0 7.4-10.4 FL Neutrophils (%) (Auto) 65 42-75 % Lymphocytes (%) (Auto) 19 12-44 % Monocytes (%) (Auto) 7 0-12 % Eosinophils (%) (Auto) 10 0-10 % Basophils (%) (Auto) 0 0-10 % Neutrophils # (Auto) 8.0 H 1.8-7.8 X 10^3 Lymphocytes # (Auto) 2.3 1.0-4.0 X 10^3 Monocytes # (Auto) 0.8 0.0-1.0 X 10^3 Eosinophils # (Auto) 1.2 H 0.0-0.3 10^3/uL Basophils # (Auto) 0.0 0.0-0.1 10^3/uL Prothrombin Time 11.8 L 12.2-14.7 SEC INR Comment 0.9 0.8-1.4 Activated Partial Thromboplast Time 28 24-35 SEC Sodium Level 141 135-145 MMOL/L Potassium Level 3.3 L 3.6-5.0 MMOL/L Chloride Level 107 98-107 MMOL/L Carbon Dioxide Level 23 21-32 MMOL/L Anion Gap 11 5-14 MMOL/L Blood Urea Nitrogen 10 7-18 MG/DL Creatinine 0.63 0.60-1.30 MG/DL Estimat Glomerular Filtration Rate > 60 BUN/Creatinine Ratio 16 Glucose Level 96 70-105 MG/DL Lactic Acid Level 1.74 0.50-2.00 MMOL/L Calcium Level 9.5 8.5-10.1 MG/DL Corrected Calcium 9.6 8.5-10.1 MG/DL Total Bilirubin 0.2 0.1-1.0 MG/DL Aspartate Amino Transf (AST/SGOT) 18 5-34 U/L Alanine Aminotransferase (ALT/SGPT) 12 0-55 U/L Alkaline Phosphatase 95 40-136 U/L Total Protein 6.5 6.4-8.2 GM/DL Albumin 3.9 3.2-4.5 GM/DL Urine Color YELLOW Urine Clarity CLEAR Urine pH 6 5-9 Urine Specific [place] 1.015 L 1.016-1.022 Urine Protein NEGATIVE NEGATIVE Urine Glucose (UA) NEGATIVE NEGATIVE Urine Ketones NEGATIVE NEGATIVE Urine Nitrite NEGATIVE NEGATIVE Urine Bilirubin NEGATIVE NEGATIVE Urine Urobilinogen NORMAL NORMAL MG/DL Urine Leukocyte Esterase NEGATIVE NEGATIVE Urine RBC (Auto) NEGATIVE NEGATIVE Urine RBC NONE /HPF Urine WBC NONE /HPF Urine Squamous Epithelial Cells RARE /HPF Urine Crystals NONE /LPF Urine Bacteria NEGATIVE /HPF Urine Casts NONE /LPF Urine Mucus NEGATIVE /LPF Urine Culture Indicated CULTURE PENDING Micro Results Microbiology 07/24/18 Influenza Types A,B Antigen (RAEANN) - Final, Complete My Orders Orders - JOY HERNÁNDEZ MD Cbc With Automated Diff (07/24/18 08:35) Comprehensive Metabolic Panel (07/24/18 08:35) Blood Culture (07/24/18 08:35) Sputum Culture (07/24/18 08:35) Urinalysis (07/24/18 08:35) Urine Culture (07/24/18 08:35) Protime With Inr (07/24/18 08:35) Partial Thromboplastin Time (07/24/18 08:35) Chest 1 View, Ap/Pa Only (07/24/18 08:35) Saline Lock/Iv-Start (07/24/18 08:35) Vital Signs Adult Sepsis Patie Q15M (07/24/18 08:35) O2 (07/24/18 08:35) Remove Rings In Anticipation O (07/24/18 08:35) Lactic Acid Analyzer (07/24/18 08:35) Influenza A And B Antigens (07/24/18 08:35) Ns Iv 1000 Ml (Sodium Chloride 0.9%) (07/24/18 08:35) Albuterol Pre-Mix Nebs (Rt) (Proventil (07/24/18 08:51) Albuterol/Ipra Inhalation Soln (Duoneb I (07/24/18 09:00) Svn Small Volume Nebulizer (07/24/18 08:51) Svn Small Volume Nebulizer (07/24/18 08:51) Albuterol Pre-Mix Nebs (Rt) (Proventil (07/24/18 13:04) Svn Small Volume Nebulizer (07/24/18 13:04) Albuterol Pre-Mix Nebs (Rt) (Proventil (07/24/18 13:05) Medications Given in ED Current Medications Medications Dose Ordered Sig/Phani Route Start Time Stop Time Status Last Admin Dose Admin Albuterol/ Ipratropium 3 ml ONCE ONCE INH 07/24/18 09:00 07/24/18 09:01 DC 07/24/18 08:59 3 ML Sodium Chloride 1,000 ml @ 0 mls/hr Q0M ONCE IV 07/24/18 08:35 07/24/18 08:38 DC 07/24/18 08:49 1,000 MLS/HR Vital Signs/I&O 07/24/18 07/24/18 07/24/18 07/24/18 08:16 08:59 09:02 13:10 Temp 99.7 Pulse 112 Resp 22 B/P (MAP) 145/94 (111) Pulse Ox 98 96 96 93 O2 Delivery Room Air Room Air Room Air Room Air Capillary Refill : Less Than 3 Seconds Blood Pressure Mean: 111 Progress Note : Progress Note Seen and evaluated. IV, labs, UA, chest x-ray, blood cultures and lactic acid ordered. Influenza screen ordered. Normal saline 1 L bolus. Duo neb and albuterol neb ordered. Monitor patient. 1300: Overall improved now little dyspneic again. Repeat albuterol neb 2. She off oxygen and tolerating. Overall no acute findings on evaluation. Should noa go home. We'll recheck after nebs and she remains improved and she will go home. Patient and family were okay with this. 1340: Overall doing better. Discharged home with return precautions. Patient verbalize understanding instructions and agreement with plan. Diagnostic Imaging Diagonstic Imaging: Xray Plain Films/CT/US/NM/MRI: chest Comments NAME: MICHAEL MARK [facility] REC#: [id number] PT STATUS: REG ER : 1955 PHYSICIAN: JOY HERNÁNDEZ MD ADMIT DATE: 07/24/18/ER Signed Date of Exam: 07/24/18 CHEST 1 VIEW, AP/PA ONLY Indication: Shortness of breath. Comparison made with prior examination from 07/13/2018. Findings: Heart size normal. The mediastinum is unremarkable. Lungs are clear. There is no pleural effusion or pneumothorax. Impression: No acute cardiopulmonary abnormality. Dictated by: Dictated on workstation # [id number] Dict: 07/24/18 09 Trans: 07/24/18915 Interpreted by: CHELSI HORTON MD Electronically signed by: CHELSI HORTON MD 07/24/18915 Departure Impression Primary Impression: COPD with acute exacerbation Disposition: HOME, SELF-CARE Condition: Improved Departure-Patient Inst. Decision time for Depature: 13:07 Referrals: [facility] [place] Primary Care Physician FELISHA CHAPIN (Family) Primary Care Physician Patient Instructions: Acute Bronchitis, Adult (DC) Add. Discharge Instructions: All discharge instructions reviewed with patient and/or family. Voiced understanding. Continue albuterol treatments as prescribed. Take medications as prescribed. Follow-up with your doctor this week for recheck and further evaluation. Return for worse pain, fever, vomiting, weakness, breathing problems or other concerns as needed. Scripts Albuterol Sulfate (Albuterol Sulfate) 2.5 Mg/3 Ml Vial.neb 2.5 MG INH Q4H PRN for WHEEZING, #50 EA 1 Refill Prov: JOY HERNÁNDEZ MD 07/24/18 Methylprednisolone (Medrol) 4 Mg Tab.ds.pk 4 MG PO UD for 6 Days, #21 PKG PER DOSE PACK INSTRUCTIONS Prov: JOY HERNÁNDEZ MD 07/24/18 JOY HERNÁNDEZ MD Jul 24, 2018 09:02
--- NOTE | 2018-07-24 09:08 | Diagnostic Imaging Report ---
Indication: Shortness of breath. Comparison made with prior examination from 07/13/2018. Findings: Heart size normal. The mediastinum is unremarkable. Lungs are clear. There is no pleural effusion or pneumothorax. Impression: No acute cardiopulmonary abnormality. Dictated by: Dictated on workstation # [id number]
[2018-07-24 12:34] LABS: BILIRUBIN,URINE NEGATIVE (NEGATIVE); CLARITY,URINE CLEAR; COLOR,URINE YELLOW; GLUCOSE, URINE (UA) NEGATIVE (NEGATIVE); KETONES,URINE NEGATIVE (NEGATIVE); LEUKOCYTE ESTERASE ,URINE NEGATIVE (NEGATIVE); NITRITE,URINE NEGATIVE (NEGATIVE); PH,URINE 6 (5-9); PROTEIN,URINE NEGATIVE (NEGATIVE); UROBILINOGEN,URINE NORMAL (NORMAL)
[2018-07-24 12:45] LABS: BACTERIA,URINE NEGATIVE /HPF; SQUAMOUS EPITHELIAL CELL,UR RARE /HPF
[2018-07-24] MEDS ORDERED: RT-ALBUTEROL SULF 2.5 MG/3 ML PRE-MIX VIAL ONE (13:05)
[2018-07-24] MEDS ORDERED: METH4TAB PO (13:09)
[2018-07-24] MEDS ORDERED: ALBU2.5V4 INH (13:09)
[2018-07-24 13:54] VITALS: BP 145/75
== END 2018-07-24 13:54 | disposition home or self-care (01) ==
LOC: ER 08:13
DX: J44.1 Chronic obstructive pulmonary disease with (acute) exacerbation (principal); E78.00 Pure hypercholesterolemia, unspecified; I73.9 Peripheral vascular disease, unspecified; K21.9 Gastro-esophageal reflux disease without esophagitis; E03.9 Hypothyroidism, unspecified; F41.9 Anxiety disorder, unspecified; Z85.72 Personal history of non-Hodgkin lymphomas; Z85.3 Personal history of malignant neoplasm of breast; Z87.19 Personal history of other diseases of the digestive system; Z88.5 Allergy status to narcotic agent; Z79.51 Long term (current) use of inhaled steroids; Z79.52 Long term (current) use of systemic steroids; Z87.891 Personal history of nicotine dependence; Z90.49 Acquired absence of other specified parts of digestive tract; Z98.890 Other specified postprocedural states; Z98.51 Tubal ligation status
CPT/HCPCS: 36415; 71045; 80053; 81000; 83605; 85025; 85610; 85730; 87040; 87088; 87804; 94640

== ENCOUNTER 2018-08-04 13:49 | Emergency (ER) | payer MEDICARE ==
[~2018-08-04] VITALS: Ht 154.9 cm; Wt 53.1 kg
[~2018-08-04 13:49] MED LIST changes: +ALBU2.5V4 INH
[2018-08-04] MEDS ORDERED: RT-ALBUTEROL SULF 2.5 MG/3 ML PRE-MIX VIAL ONE (14:08)
[2018-08-04] MEDS ORDERED: RT-IPRATROPIUM (ATROVENT) 0.5MG/2.5ML AMP IH ONE (14:08)
--- NOTE | 2018-08-04 14:19 | ED Respiratory ---
General Chief Complaint: Respiratory Problems Stated Complaint: SOB Source: patient Exam Limitations: no limitations History of Present Illness Date Seen by Provider: Aug 04, 2018 Time Seen by Provider: 14:18 Initial Comments To ER per private vehicle from [facility] where she presented today with worsening shortness of breath. She's been in the hospital a few times in the past couple of weeks with COPD exacerbation. She does not wear oxygen at home. She was 88% on arrival in room air. She denies fevers or chills. Complains of chronic cough and wheezing. Activity health she was given 2 breathing treatments and 125 mg solu Medrol IV. Timing/Duration: constant, getting worse Severity: moderate Prior Episodes/Possible Cause: occasional episodes Associated Symptoms: shortness of breath, wheezing Allergies and Home Medications Allergies Coded Allergies: oxycodone HCl (Verified Adverse Reaction, Severe, BLACK OUT, 12/04/11) morphine (Verified Adverse Reaction, Intermediate, Blackout, 10/11/16) Home Medications Albuterol Sulfate 8.5 Gm Hfa.aer.ad, 8.5 GM IH Q4H Prescribed by: CINDY ARGUELLO on 02/18/13 1022 Albuterol Sulfate 2.5 Mg/3 Ml Vial.neb, 2.5 MG INH Q4H PRN for WHEEZING Prescribed by: JOY HERNÁNDEZ on 07/24/18 1309 Ascorbic Acid 500 Mg Tablet, 500 MG PO DAILY, (Reported) Benzonatate 100 Mg Capsule, 1-2 TAB PO TID Prescribed by: DAWSON ALVARADO on 10/11/162121 Budesonide 90 Mcg Aer.pow.ba, 90 MCG IH BID Prescribed by: DAWSON ALVARADO on 10/11/162121 Budesonide/Formoterol Fumarate 1 Puff Puff, 2 PUFF IH RTBID Prescribed by: CINDY ARGUELLO on 02/18/13 1022 Calcium Carbonate/Vitamin D3 1 Each Tablet, 1 TAB PO DAILY, (Reported) Cefdinir 300 Mg Capsule, 300 MG PO BID FOR INFECTION Prescribed by: DAWSON ALVARADO on 10/11/162121 Cholecalciferol (Vitamin D3) 400 Unit Capsule, 400 UNIT PO DAILY, (Reported) Cyanocobalamin 1,000 Mcg Tablet.sa, 250 MCG PO DAILY, (Reported) D-Methorphan Hb/Prometh HCl 118 Ml Syrup, 1-2 TSP PO Q4H Prescribed by: DAWSON ALVARADO on 10/11/162121 Fentanyl 1 Ea Patch, 25 MCG TD Q72H Prescribed by: CINDY ARGUELLO on 02/18/131021 Guaifenesin 100 Mg/5 Ml Syrp, 200 MG PO QID PRN Prescribed by: CINDY ARGUELLO on 02/18/13 102 Hydrocodone Bit/Acetaminophen 1 Each Tablet, 10-325 MG PO Q4H PRN, (Reported) NEEDED FOR PAIN Levofloxacin 750 Mg Tablet, 750 MG PO DAILY@1100 Prescribed by: CINDY ARGUELLO on 02/18/13 102 Levothyroxine Sodium 75 Mcg Tablet, 75 MCG PO DAILY, (Reported) Lorazepam 1 Mg Tab, 1 MG PO BID PRN, (Reported) NEEDED FOR ANXIETY Methylprednisolone 4 Mg Tab.ds.pk, 4 MG PO UD Prescribed by: DAWSON ALVARADO on 10/11/162121 Methylprednisolone 4 Mg Tab.ds.pk, 4 MG PO UD PER DOSE PACK INSTRUCTIONS Prescribed by: JOY HERNÁNDEZ on 07/24/18 1309 Nicotine 21 Mg Box, 21 MG TD DAILY Prescribed by: CINDY ARGUELLO on 02/18/13 102 Prednisone 20 Mg Tab, 20 MG PO DAILY@0700 Prescribed by: CINDY ARGUELLO on 02/18/13 102 Prednisone 10 Mg Tab.ds.pk, 10 MG PO DAILY Take 6 tabs(60mg)daily,decrease by 1 tab(10MG)daily. Prescribed by: REYES GEORGE on 08/04/18 1637 Simvastatin 40 Mg Tablet, 40 MG PO HS, (Reported) Tiotropium [place] 18 Mcg Cap.w.dev, 0 INH IH DAILY@0800 Prescribed by: CINDY ARGUELLO on 02/18/13 102 Venlafaxine Hcl 75 Mg Cap, 75 MG PO BID, (Reported) Vitamin E Acid Succinate 400 Unit Tablet, 400 UNIT PO DAILY, (Reported) Patient Home Medication List Home Medication List Reviewed: Yes Review of Systems Review of Systems Constitutional: see HPI EENTM: see HPI Respiratory: see HPI, cough, dyspnea on exertion, short of breath Cardiovascular: no symptoms reported Genitourinary: no symptoms reported Musculoskeletal: no symptoms reported Skin: no symptoms reported Psychiatric/Neurological: No Symptoms Reported Hematologic/Lymphatic: No Symptoms Reported Past Robnqpw-Haeebc-Bvppeq Hx Patient Social History Type Used: Cigarettes Former Smoker, Quit: Jul 17, 2018 2nd Hand Smoke Exposure: Yes Recent Foreign Travel: No Contact w/Someone Who Travel: No Recent Hopitalizations: No Immunizations Up To Date Tetanus Booster (TDap): Less than 5yrs Date of Pneumonia Vaccine: Jan 14, 2012 Date of Influenza Vaccine: Feb 12, 2011 Seasonal Allergies Seasonal Allergies: No Past Medical History Surgeries: Yes (CARPAL TUNNEL, HAND SURGERY) Abdominal, Appendectomy, Breast, Orthopedic, Tubal Ligation Respiratory: Yes COPD Cardiac: Yes (carotid artery problem) High Cholesterol, Peripheral Vascular Neurological: No 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: No 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 oz. 53.013202dw; BMI Method:Stated General Appearance: WD/WN, mild distress Eyes: Bilateral Eye Normal Inspection, Bilateral Eye PERRL HEENT: PERRL/EOMI, normal ENT inspection Respiratory: no respiratory distress, no accessory muscle use, decreased breath sounds, wheezing Gastrointestinal: normal bowel sounds, non tender, soft Neurologic/Psychiatric: alert, normal mood/affect, oriented x 3 Skin: normal color, warm/dry Progress/Results/Core Measures Suspected Sepsis SIRS Temperature:98.6 Pulse: 93 Respiratory Rate: 19 Laboratory Tests 08/04/18 14:00: White Blood Count 10.0 Blood Pressure 164 /92 Mean: 116 Laboratory Tests 08/04/18 14:00: Creatinine 0.67, Platelet Count 307, Total Bilirubin 0.2 Results/Orders Lab Results Laboratory Tests Test 08/04/18 14:00 08/04/18 14:35 Range/Units White Blood Count 10.0 4.3-11.0 10^3/uL Red Blood Count 5.11 4.35-5.85 10^6/uL Hemoglobin 14.9 11.5-16.0 G/DL Hematocrit 47 35-52 % Mean Corpuscular Volume 91 80-99 FL Mean Corpuscular Hemoglobin 29 25-34 PG Mean Corpuscular Hemoglobin Concent 32 32-36 G/DL Red Cell Distribution Width 13.3 10.0-14.5 % Platelet Count 307 130-400 10^3/uL Mean Platelet Volume 10.2 7.4-10.4 FL Neutrophils (%) (Auto) 50 42-75 % Lymphocytes (%) (Auto) 30 12-44 % Monocytes (%) (Auto) 6 0-12 % Eosinophils (%) (Auto) 14 H 0-10 % Basophils (%) (Auto) 0 0-10 % Neutrophils # (Auto) 5.0 1.8-7.8 X 10^3 Lymphocytes # (Auto) 2.9 1.0-4.0 X 10^3 Monocytes # (Auto) 0.6 0.0-1.0 X 10^3 Eosinophils # (Auto) 1.4 H 0.0-0.3 10^3/uL Basophils # (Auto) 0.0 0.0-0.1 10^3/uL Neutrophils % (Manual) 48 % Lymphocytes % (Manual) 33 % Monocytes % (Manual) 7 % Eosinophils % (Manual) 12 % Clumped Platelets Blood Morphology Comment NORMAL D-Dimer 0.53 H 0.00-0.49 UG/ML Sodium Level 141 135-145 MMOL/L Potassium Level 4.0 3.6-5.0 MMOL/L Chloride Level 107 98-107 MMOL/L Carbon Dioxide Level 23 21-32 MMOL/L Anion Gap 11 5-14 MMOL/L Blood Urea Nitrogen 16 7-18 MG/DL Creatinine 0.67 0.60-1.30 MG/DL Estimat Glomerular Filtration Rate > 60 BUN/Creatinine Ratio 24 Glucose Level 91 70-105 MG/DL Calcium Level 9.8 8.5-10.1 MG/DL Corrected Calcium 9.5 8.5-10.1 MG/DL Total Bilirubin 0.2 0.1-1.0 MG/DL Aspartate Amino Transf (AST/SGOT) 15 5-34 U/L Alanine Aminotransferase (ALT/SGPT) 11 0-55 U/L Alkaline Phosphatase 98 40-136 U/L Troponin I < 0.028 <0.028 NG/ML B-Type Natriuretic Peptide 14.5 <100.0 PG/ML Total Protein 7.4 6.4-8.2 GM/DL Albumin 4.4 3.2-4.5 GM/DL Blood Gas Puncture Site RIGHT RADIAL Blood Gas Patient Temperature 98.4 Arterial Blood pH 7.32 *L 7.37-7.43 Arterial Blood Partial Pressure CO2 45 35-45 MMHG Arterial Blood Partial Pressure O2 90 79-93 MMHG Arterial Blood HCO3 23 23-27 MMOL/L Arterial Blood Total CO2 24.1 21.0-31.0 MMOL/L Arterial Blood Oxygen Saturation 97 94-100 % Arterial Blood Base Excess -2.4 -2.5-2.5 MMOL/L Robby Test POSITIVE Blood Gas Ventilator Setting NO Blood Gas Inspired Oxygen 1 L/M NC My Orders Orders - REYES GEORGE APRN Ipratropium 0.02% Neb Solution (Atrovent (08/04/18 14:08) Albuterol Pre-Mix Nebs (Rt) (Proventil (08/04/18 14:08) Chest 1 View, Ap/Pa Only (08/04/18 14:16) Cbc With Automated Diff (08/04/18 14:16) Comprehensive Metabolic Panel (08/04/18 14:16) Troponin I (08/04/18 14:16) BNP (08/04/18 14:16) Ekg Tracing (08/04/18 14:16) Continuous Ekg Monitoring (08/04/18 14:16) Iv Heplock-Insert (Order) (08/04/18 14:16) Fibrin Degradation Products (08/04/18 14:16) Albuterol Pre-Mix Nebs (Rt) (Proventil (08/04/18 14:30) Svn Small Volume Nebulizer (08/04/18 14:16) Manual Differential (08/04/18 14:00) Arterial Blood Gas (08/04/18 14:40) Prednisone Tablet (Deltasone Tablet) (08/04/18 16:45) Medications Given in ED Current Medications Medications Dose Ordered Sig/Phani Route Start Time Stop Time Status Last Admin Dose Admin Prednisone 40 mg ONCE ONCE PO 08/04/18 16:45 08/04/18 16:46 DC 08/04/18 16:50 40 MG Vital Signs/I&O 08/04/18 08/04/18 13:54 16:40 Temp 98.6 98.6 Pulse 93 102 Resp B/P (MAP) 164/92 (116) 121/61 (81) Pulse Ox 88 92 O2 Delivery Room Air Room Air Capillary Refill : Less Than 3 Seconds Departure Communication (Admissions) 1631-she has remained 92-94% for 30-40 minutes on room air. She is still wheezy. I'll give her a dose of prednisone here, she does not need to be admitted because she has a nebulizer at home with adequate supply of nebulized albuterol. She does not require supplemental oxygen. We will do oral steroids at home Impression Primary Impression: COPD exacerbation Disposition: HOME, SELF-CARE Condition: Stable Departure-Patient Inst. Decision time for Depature: 16:35 Referrals: [facility] (PCP) Primary Care Physician FELISHA CHAPIN (Family) Primary Care Physician Patient Instructions: Exacerbation of COPD Add. Discharge Instructions: 1. Steroids as directed 2. ER for any worsening 3. Nebulizer treatment every 4 hours and additional treatment every 2 hours as needed for severe shortness of breath. If you need more than this return to the emergency room All discharge instructions reviewed with patient and/or family. Voiced understanding. Scripts Prednisone (Prednisone) 10 Mg Tab.ds.pk 10 MG PO DAILY, #21 EA Take 6 tabs(60mg)daily,decrease by 1 tab(10MG)daily. Prov: REYES GEORGE APRN 08/04/18 REYES GEORGE APRN Aug 04, 2018 14:19
[2018-08-04 14:22] LABS: BASOPHILS % (AUTO) 0 % (0-10); EOSINOPHILS # (AUTO) 1.4 10^3/uL (0.0-0.3); EOSINOPHILS % (AUTO) 14 % (0-10); HEMATOCRIT 47 % (35-52); HEMOGLOBIN 14.9 G/DL (11.5-16.0); LYMPHOCYTES # (AUTO) 2.9 X 10^3 (1.0-4.0); LYMPHOCYTES % (AUTO) 30 % (12-44); MEAN CORPUSCULAR HEMOGLOBIN 29 PG (25-34); MEAN CORPUSCULAR HGB CONC 32 G/DL (32-36); MEAN CORPUSCULAR VOLUME 91 FL (80-99); MEAN PLATELET VOLUME 10.2 FL (7.4-10.4); MONOCYTES # (AUTO) 0.6 X 10^3 (0.0-1.0); MONOCYTES % (AUTO) 6 % (0-12); NEUTROPHILS % (AUTO) 50 % (42-75); PLATELET COUNT 307 10^3/uL (130-400); RED CELL DISTRIBUTION WIDTH 13.3 % (10.0-14.5)
[2018-08-04] MEDS ORDERED: RT-ALBUTEROL SULF 2.5 MG/3 ML PRE-MIX VIAL INH SCH (14:30)
[2018-08-04 14:34] LABS: ALANINE AMINOTRANSFERASE 11 U/L (0-55); ALBUMIN 4.4 GM/DL (3.2-4.5); ALKALINE PHOSPHATASE 98 U/L (40-136); BILIRUBIN,TOTAL 0.2 MG/DL (0.1-1.0); BUN/CREATININE RATIO 24; CALCIUM 9.8 MG/DL (8.5-10.1); CARBON DIOXIDE 23 MMOL/L (21-32); CHLORIDE 107 MMOL/L (98-107); CREATININE SERUM 0.67 MG/DL (0.60-1.30); GFR ESTIMATED > 60; GLUCOSE 91 MG/DL (70-105); SODIUM 141 MMOL/L (135-145); TOTAL PROTEIN 7.4 GM/DL (6.4-8.2)
[2018-08-04 14:46] LABS: ABG BASE EXCESS -2.4 MMOL/L (-2.5-2.5); ABG OXYGEN SATURATION 97 % (94-100); ABG PCO2 45 MMHG (35-45); ABG PO2 90 MMHG (79-93); ABG TCO2 24.1 MMOL/L (21.0-31.0)
[2018-08-04 14:47] LABS: ABG PH 7.32 (7.37-7.43)
[2018-08-04 14:48] LABS: ALLENS TEST POSITIVE
[2018-08-04 14:49] LABS: INSPIRED O2 1 L/M NC; PATIENT TEMP 98.4; VENTILATOR NO
--- NOTE | 2018-08-04 14:52 | Diagnostic Imaging Report ---
Indication: Short of breath Comparison: 07/24/2018 Findings: Single view of the chest demonstrates hyperinflation compatible with COPD. The heart is slightly enlarged but stable. Lungs are clear. There is no pneumothorax. Impression: COPD without infiltrate. Dictated by: Dictated on workstation # [id number]
[2018-08-04 15:40] LABS: EOSINOPHILS % (MANUAL) 12 %; LYMPHOCYTES % (MANUAL) 33 %; MONOCYTES % (MANUAL) 7 %; NEUTROPHILS % (MANUAL) 48 %; RBC MORPH NORMAL
[2018-08-04] MEDS ORDERED: PRED10TA22 PO (16:37)
[2018-08-04 16:40] VITALS: BP 121/61
[2018-08-04] MEDS ORDERED: predniSONE 20 MG TAB PO ONE (16:45)
== END 2018-08-04 16:40 | disposition home or self-care (01) ==
LOC: EDUNIT# 13:49 → ER 13:50
DX: J44.1 Chronic obstructive pulmonary disease with (acute) exacerbation (principal); E78.00 Pure hypercholesterolemia, unspecified; I73.9 Peripheral vascular disease, unspecified; K21.9 Gastro-esophageal reflux disease without esophagitis; E03.9 Hypothyroidism, unspecified; F41.9 Anxiety disorder, unspecified; Z85.3 Personal history of malignant neoplasm of breast; Z85.72 Personal history of non-Hodgkin lymphomas; Z88.5 Allergy status to narcotic agent; Z90.49 Acquired absence of other specified parts of digestive tract; Z98.51 Tubal ligation status; Z98.890 Other specified postprocedural states; Z79.51 Long term (current) use of inhaled steroids; Z79.52 Long term (current) use of systemic steroids; Z87.891 Personal history of nicotine dependence
CPT/HCPCS: 36415; 71045; 80053; 82805; 83880; 84484; 85007; 85027; 85379; 93005; 94640

== ENCOUNTER 2018-08-10 19:35 | Inpatient (IN) | payer MEDICARE ==
[~2018-08-10] VITALS: Ht 154.9 cm; Wt 53.1 kg
[~2018-08-10 19:35] MED LIST changes: +PRED10TA22 PO
[2018-08-10] MEDS ORDERED: RT-ALBUTEROL SULF 2.5 MG/3 ML PRE-MIX VIAL ONE (19:52)
[2018-08-10] MEDS ORDERED: RT-ALBUTEROL/IPRATROPIUM 3 ML (DUONEB) VIAL ONE (19:52)
[2018-08-10] MEDS ORDERED: RT-ALBUTEROL SULF 2.5 MG/3 ML PRE-MIX VIAL INH STA (19:53)
[2018-08-10] MEDS ORDERED: NS IV 1000 ML 1,000 ML IV SCH (19:54)
[2018-08-10] MEDS ORDERED: RT-ALBUTEROL/IPRATROPIUM 3 ML (DUONEB) VIAL INH ONE (20:00)
[2018-08-10 20:01] LABS: BASOPHILS % (AUTO) 0 % (0-10); EOSINOPHILS # (AUTO) 0.1 10^3/uL (0.0-0.3); EOSINOPHILS % (AUTO) 1 % (0-10); HEMATOCRIT 42 % (35-52); HEMOGLOBIN 13.8 G/DL (11.5-16.0); LYMPHOCYTES # (AUTO) 1.3 X 10^3 (1.0-4.0); LYMPHOCYTES % (AUTO) 16 % (12-44); MEAN CORPUSCULAR HEMOGLOBIN 30 PG (25-34); MEAN CORPUSCULAR HGB CONC 33 G/DL (32-36); MEAN CORPUSCULAR VOLUME 90 FL (80-99); MEAN PLATELET VOLUME 9.7 FL (7.4-10.4); MONOCYTES # (AUTO) 0.6 X 10^3 (0.0-1.0); MONOCYTES % (AUTO) 7 % (0-12); NEUTROPHILS # (AUTO) 6.4 X 10^3 (1.8-7.8); NEUTROPHILS % (AUTO) 76 % (42-75); PLATELET COUNT 276 10^3/uL (130-400); RED CELL DISTRIBUTION WIDTH 13.5 % (10.0-14.5); WHITE BLOOD COUNT 8.4 10^3/uL (4.3-11.0)
--- NOTE | 2018-08-10 20:12 | ED General ---
General Chief Complaint: Respiratory Problems Stated Complaint: SOB Nursing Triage Note: PATIENT STATES THAT SHE IS AGAIN SOB. SHE HAS COPD AND RECENTLY WAS SEEN IN ER FOR AN EXACERBATION. SHE HAS HAD CHILLS TODAY. Nursing Sepsis Screen: Possible Sepsis Risk Source of Information: Patient, Old Records Exam Limitations: No Limitations History of Present Illness Date Seen by Provider: Aug 10, 2018 Time Seen by Provider: 19:49 Initial Comments This 62-year-old woman presents to the emergency room with complaints of cough and wheezing. She has now been taking emergency room 4 times this month for COPD exacerbation. She has been on multiple rounds of steroids. She has finished her most recent round. She continues to smoke despite her breathing difficulties. Today she is febrile. She was not aware of her fever. She tried a nebulizer treatment just prior to arrival and is still very tight and wheezy. Allergies and Home Medications Allergies Coded Allergies: oxycodone HCl (Verified Adverse Reaction, Severe, BLACK OUT, 12/04/11) morphine (Verified Adverse Reaction, Intermediate, Blackout, 10/11/16) Home Medications Albuterol Sulfate 8.5 Gm Hfa.aer.ad, 8.5 GM IH Q4H Prescribed by: CINDY ARGUELLO on 02/18/13 1022 Albuterol Sulfate 2.5 Mg/3 Ml Vial.neb, 2.5 MG INH Q4H PRN for WHEEZING Prescribed by: JOY HERNÁNDEZ on 07/24/18 1309 Ascorbic Acid 500 Mg Tablet, 500 MG PO DAILY, (Reported) Benzonatate 100 Mg Capsule, 1-2 TAB PO TID Prescribed by: DAWSON ALVARADO on 10/11/162121 Budesonide 90 Mcg Aer.pow.ba, 90 MCG IH BID Prescribed by: DAWSON ALVARADO on 10/11/162121 Budesonide/Formoterol Fumarate 1 Puff Puff, 2 PUFF IH RTBID Prescribed by: CINDY ARGUELLO on 02/18/13 1022 Calcium Carbonate/Vitamin D3 1 Each Tablet, 1 TAB PO DAILY, (Reported) Cefdinir 300 Mg Capsule, 300 MG PO BID FOR INFECTION Prescribed by: DAWSON ALVARADO on 10/11/162121 Cholecalciferol (Vitamin D3) 400 Unit Capsule, 400 UNIT PO DAILY, (Reported) Cyanocobalamin 1,000 Mcg Tablet.sa, 250 MCG PO DAILY, (Reported) D-Methorphan Hb/Prometh HCl 118 Ml Syrup, 1-2 TSP PO Q4H Prescribed by: DAWSON ALVARADO on 10/11/162121 Fentanyl 1 Ea Patch, 25 MCG TD Q72H Prescribed by: CINDY ARGUELLO on 02/18/131021 Guaifenesin 100 Mg/5 Ml Syrp, 200 MG PO QID PRN Prescribed by: CINDY ARGUELLO on 02/18/13 102 Hydrocodone Bit/Acetaminophen 1 Each Tablet, 10-325 MG PO Q4H PRN, (Reported) NEEDED FOR PAIN Levofloxacin 750 Mg Tablet, 750 MG PO DAILY@1100 Prescribed by: CINDY ARGUELLO on 02/18/131021 Levothyroxine Sodium 75 Mcg Tablet, 75 MCG PO DAILY, (Reported) Lorazepam 1 Mg Tab, 1 MG PO BID PRN, (Reported) NEEDED FOR ANXIETY Methylprednisolone 4 Mg Tab.ds.pk, 4 MG PO UD Prescribed by: DAWSON ALVARADO on 10/11/162121 Methylprednisolone 4 Mg Tab.ds.pk, 4 MG PO UD PER DOSE PACK INSTRUCTIONS Prescribed by: JOY HERNÁNDEZ on 07/24/18 1309 Nicotine 21 Mg Box, 21 MG TD DAILY Prescribed by: CINDY ARGUELLO on 02/18/13 102 Prednisone 20 Mg Tab, 20 MG PO DAILY@0700 Prescribed by: CINDY ARGUELLO on 02/18/13 102 Prednisone 10 Mg Tab.ds.pk, 10 MG PO DAILY Take 6 tabs(60mg)daily,decrease by 1 tab(10MG)daily. Prescribed by: REYES GEROGE on 08/04/18 1637 Simvastatin 40 Mg Tablet, 40 MG PO HS, (Reported) Tiotropium [place] 18 Mcg Cap.w.dev, 0 INH IH DAILY@0800 Prescribed by: CINDY ARGUELLO on 02/18/13 102 Venlafaxine Hcl 75 Mg Cap, 75 MG PO BID, (Reported) Vitamin E Acid Succinate 400 Unit Tablet, 400 UNIT PO DAILY, (Reported) Patient Home Medication List Home Medication List Reviewed: Yes Review of Systems Review of Systems Constitutional: see HPI EENTM: no symptoms reported Respiratory: see HPI Cardiovascular: no symptoms reported Gastrointestinal: no symptoms reported Genitourinary: no symptoms reported Musculoskeletal: no symptoms reported Skin: no symptoms reported Psychiatric/Neurological: No Symptoms Reported Hematologic/Lymphatic: No Symptoms Reported Immunological/Allergic: no symptoms reported Past Eiwvovp-Svbhss-Jrdxnk Hx Past Med/Social Hx: Reviewed and Corrections made Patient Social History Smoking Status: Heavy Tobacco Smoker Type Used: Cigarettes Former Smoker, Quit: Jul 17, 2018 2nd Hand Smoke Exposure: Yes Recent Foreign Travel: No Contact w/Someone Who Travel: No Recent Infectious Disease Expo: No Recent Hopitalizations: No Immunizations Up To Date Tetanus Booster (TDap): Less than 5yrs Date of Pneumonia Vaccine: Jan 14, 2012 Date of Influenza Vaccine: Feb 12, 2011 Seasonal Allergies Seasonal Allergies: No Past Medical History Surgeries: Yes (CARPAL TUNNEL, HAND SURGERY) Abdominal, Appendectomy, Breast, Orthopedic, Tubal Ligation Respiratory: Yes COPD Cardiac: Yes (carotid artery problem) High Cholesterol, Peripheral Vascular Neurological: No 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 Sexually Transmitted Disease: No Genitourinary: No Gastrointestinal: Yes Gastroesophageal Reflux, Hiatal Hernia Musculoskeletal: Yes (athritis lower back) Degenerate Disk Disease, Arthritis, Chronic Back Pain Endocrine: Yes Hypothyroidsim HEENT: No Cancer: Yes Breast, Lymphoma Psychosocial: Yes Anxiety Integumentary: No Blood Disorders: No Physical Exam-Suspected Sepsis Physical Exam Vital Signs Vital Signs - First Documented 08/10/18 19:39 Temp 101.2 Pulse 115 Resp 22 B/P (MAP) 133/89 (104) Pulse Ox 94 O2 Delivery Room Air Capillary Refill : Less Than 3 Seconds Blood Pressure Mean: 104 Height, Weight, BMI Height: 5'1.00" Weight: 117lbs. 0oz. 53.867892mg; BMI Method:Stated General Appearance: WD/WN, Mild Distress HEENT: PERRL/EOMI, Normal ENT Inspection Neck: Normal Inspection Respiratory: Accessory Muscle Use; No Crackles; Wheezing Cardiovascular: No Edema, No Murmur, Tachycardia Gastrointestinal: Non Tender, Soft Extremity: Normal Inspection, No Pedal Edema Neurologic/Psychiatric: Alert, Oriented x3, No Motor/Sensory Deficits, Normal Mood/Affect, curtain hemmer automatic II-XII Norm as Tested Skin: normal color, warm/dry Focused Exam Lactate Level 08/10/18 19:55: Lactic Acid Level 1.32 Lactic Acid Level Laboratory Tests Test 08/10/18 19:55 Lactic Acid Level 1.32 MMOL/L (0.50-2.00) Progress/Results/Core Measures Suspected Sepsis Recent Fever Within 48 Hours: No Infection Criteria Present: Suspected New Infection New/Unexplained Altered Menta: No Sepsis Screen: Possible Sepsis Risk SIRS Temperature:101.2 Pulse: 115 Respiratory Rate: 22 Laboratory Tests 08/10/18 19:45: White Blood Count 8.4 Blood Pressure 133 /89 Mean: 104 08/10/18 19:55: Lactic Acid Level 1.32 Laboratory Tests 08/10/18 19:45: Creatinine 0.67, INR Comment 0.9, Platelet Count 276, Total Bilirubin 0.3 Results/Orders Lab Results Laboratory Tests Test 08/10/18 19:45 08/10/18 19:55 Range/Units White Blood Count 8.4 4.3-11.0 10^3/uL Red Blood Count 4.66 4.35-5.85 10^6/uL Hemoglobin 13.8 11.5-16.0 G/DL Hematocrit 42 35-52 % Mean Corpuscular Volume 90 80-99 FL Mean Corpuscular Hemoglobin 30 25-34 PG Mean Corpuscular Hemoglobin Concent 33 32-36 G/DL Red Cell Distribution Width 13.5 10.0-14.5 % Platelet Count 276 130-400 10^3/uL Mean Platelet Volume 9.7 7.4-10.4 FL Neutrophils (%) (Auto) 76 H 42-75 % Lymphocytes (%) (Auto) 16 12-44 % Monocytes (%) (Auto) 7 0-12 % Eosinophils (%) (Auto) 1 0-10 % Basophils (%) (Auto) 0 0-10 % Neutrophils # (Auto) 6.4 1.8-7.8 X 10^3 Lymphocytes # (Auto) 1.3 1.0-4.0 X 10^3 Monocytes # (Auto) 0.6 0.0-1.0 X 10^3 Eosinophils # (Auto) 0.1 0.0-0.3 10^3/uL Basophils # (Auto) 0.0 0.0-0.1 10^3/uL Prothrombin Time 12.0 L 12.2-14.7 SEC INR Comment 0.9 0.8-1.4 Activated Partial Thromboplast Time 25 24-35 SEC Sodium Level 136 135-145 MMOL/L Potassium Level 3.4 L 3.6-5.0 MMOL/L Chloride Level 102 98-107 MMOL/L Carbon Dioxide Level 21 21-32 MMOL/L Anion Gap 13 5-14 MMOL/L Blood Urea Nitrogen 8 7-18 MG/DL Creatinine 0.67 0.60-1.30 MG/DL Estimat Glomerular Filtration Rate > 60 BUN/Creatinine Ratio 12 Glucose Level 89 70-105 MG/DL Calcium Level 8.9 8.5-10.1 MG/DL Corrected Calcium 9.0 8.5-10.1 MG/DL Total Bilirubin 0.3 0.1-1.0 MG/DL Aspartate Amino Transf (AST/SGOT) 18 5-34 U/L Alanine Aminotransferase (ALT/SGPT) 19 0-55 U/L Alkaline Phosphatase 74 40-136 U/L Total Protein 6.3 L 6.4-8.2 GM/DL Albumin 3.9 3.2-4.5 GM/DL Lactic Acid Level 1.32 0.50-2.00 MMOL/L Micro Results Microbiology 08/10/18 Influenza Types A,B Antigen (RAEANN) - Final, Complete My Orders Orders - REJI MCCAULEY MD Albuterol Pre-Mix Nebs (Rt) (Proventil (08/10/18 19:53) Albuterol/Ipra Inhalation Soln (Duoneb I (08/10/18 20:00) Svn Small Volume Nebulizer (08/10/18 19:53) Svn Small Volume Nebulizer (08/10/18 19:53) Albuterol Pre-Mix Nebs (Rt) (Proventil (08/10/18 19:52) Albuterol/Ipra Inhalation Soln (Duoneb I (08/10/18 19:52) Cbc With Automated Diff (08/10/18 19:54) Comprehensive Metabolic Panel (08/10/18 19:54) Blood Culture (08/10/18 19:54) Sputum Culture (08/10/18 19:54) Urinalysis (08/10/18 19:54) Urine Culture (08/10/18 19:54) Protime With Inr (08/10/18 19:54) Partial Thromboplastin Time (08/10/18 19:54) Chest 1 View, Ap/Pa Only (08/10/18 19:54) Saline Lock/Iv-Start (08/10/18 19:54) Saline Lock/Iv-Start (08/10/18 19:54) Vital Signs Adult Sepsis Patie Q15M (08/10/18 19:54) O2 (08/10/18 19:54) Remove Rings In Anticipation O (08/10/18 19:54) Lactic Acid Analyzer (08/10/18 19:54) Ns Iv 1000 Ml (Sodium Chloride 0.9%) (08/10/18 19:54) Influenza A And B Antigens (08/10/18 19:54) Methylprednisolone Sod Succ (Solu-Medrol (08/10/18 20:15) Acetaminophen Tablet/Caplet (Tylenol T (08/10/18 20:30) Oseltamivir 75 Mg Capsule (Tamiflu 75 (08/10/18 20:30) Medications Given in ED Current Medications Medications Dose Ordered Sig/Phani Route Start Time Stop Time Status Last Admin Dose Admin Acetaminophen 650 mg ONCE ONCE PO 08/10/18 20:30 08/10/18 20:31 DC 08/10/18 20:27 650 MG Albuterol/ Ipratropium 3 ml ONCE ONCE INH 08/10/18 20:00 08/10/18 20:01 DC 08/10/18 19:56 3 ML Methylprednisolone Sodium Succinate 125 mg ONCE ONCE IVP 08/10/18 20:15 08/10/18 20:16 DC 08/10/18 20:25 125 MG Oseltamivir Phosphate 75 mg ONCE ONCE PO 08/10/18 20:30 08/10/18 20:31 DC 08/10/18 20:25 75 MG Vital Signs/I&O 08/10/18 08/10/18 08/10/18 19:39 19:58 20:09 Temp 101.2 Pulse 115 Resp 22 B/P (MAP) 133/89 (104) Pulse Ox 94 94 94 O2 Delivery Room Air Room Air Room Air Capillary Refill : Less Than 3 Seconds Blood Pressure Mean: 104 Progress Note : Progress Note Septic workup was pursued. Patient was found to have influenza A. An hour- long nebulizer treatment was administered. Tylenol was given for fever. First dose of Tamiflu was given IV fluids were initiated. Solu-Medrol 125 mg IV was given. Case was discussed with Dr. Agrawal and Dr. Samson. Patient will be admitted to the cardiac step down unit with scheduled nebulizer treatments, Tamiflu, and IV steroid therapy. Diagnostic Imaging Diagonstic Imaging: Xray Plain Films/CT/US/NM/MRI: chest Comments Chest x-ray viewed by me and report reviewed. See report below: NAME: MICHAEL MARK [facility] REC#: [id number] PT STATUS: REG ER : 1955 PHYSICIAN: REJI MCCAULEY MD ADMIT DATE: 08/10/18/ER Draft Date of Exam:08/10/18 CHEST 1 VIEW, AP/PA ONLY INDICATION: Difficulty breathing. Influenza Upright chest shows normal heart size and vascularity. The lungs are clear. There is no effusion or pneumothorax. There is no acute bony abnormality. IMPRESSION: No acute abnormality is seen with no change from 08/04/2018. Dictated on workstation # [id number] Dict: 08/10/182032 Trans: 08/10/182034 [facility] [id number] Interpreted by: GWEN VALDIVIA MD Departure Communication (Admissions) Time/Spoke to Admitting Phy: 20:22 Dr. Walden Time/Spoke to Consulting Phy: 20:30 Dr. Samson Impression Primary Impression: COPD exacerbation Additional Impression: Influenza A Disposition: ADMITTED INPATIENT Condition: Improved Admissions Decision to Admit Reason: Admit from ER (General) Decision to Admit/Date: Aug 10, 2018 Time/Decision to Admit Time: 20:15 Departure-Patient Inst. Referrals: [facility] [place] Primary Care Physician FELISHA CHAPIN (Family) Primary Care Physician REJI MCCAULEY MD Aug 10, 2018 20:12
[2018-08-10] MEDS ORDERED: methylPREDNISolone 125 MG (Solu-MEDROL) VIAL IVP ONE (20:15)
[2018-08-10 20:16] LABS: INR 0.9 (0.8-1.4)
[2018-08-10 20:25] LABS: ALANINE AMINOTRANSFERASE 19 U/L (0-55); ALBUMIN 3.9 GM/DL (3.2-4.5); ALKALINE PHOSPHATASE 74 U/L (40-136); BILIRUBIN,TOTAL 0.3 MG/DL (0.1-1.0); BUN/CREATININE RATIO 12; CALCIUM 8.9 MG/DL (8.5-10.1); CARBON DIOXIDE 21 MMOL/L (21-32); CHLORIDE 102 MMOL/L (98-107); CREATININE SERUM 0.67 MG/DL (0.60-1.30); GFR ESTIMATED > 60; GLUCOSE 89 MG/DL (70-105); POTASSIUM 3.4 MMOL/L (3.6-5.0); SODIUM 136 MMOL/L (135-145); TOTAL PROTEIN 6.3 GM/DL (6.4-8.2)
[2018-08-10] MEDS ORDERED: ACETAMINOPHEN 325 MG TABLET PO ONE (20:30)
[2018-08-10] MEDS ORDERED: OSELTAMIVIR 75 MG (TAMIFLU) CAPSULE PO ONE (20:30)
--- NOTE | 2018-08-10 20:36 | Diagnostic Imaging Report ---
INDICATION: Difficulty breathing. Influenza Upright chest shows normal heart size and vascularity. The lungs are clear. There is no effusion or pneumothorax. There is no acute bony abnormality. IMPRESSION: No acute abnormality is seen with no change from 08/04/2018. Dictated by: Dictated on workstation # [id number]
[2018-08-10 20:52] LABS: BILIRUBIN,URINE NEGATIVE (NEGATIVE); CLARITY,URINE CLEAR; COLOR,URINE YELLOW; GLUCOSE, URINE (UA) NEGATIVE (NEGATIVE); KETONES,URINE NEGATIVE (NEGATIVE); LEUKOCYTE ESTERASE ,URINE NEGATIVE (NEGATIVE); NITRITE,URINE NEGATIVE (NEGATIVE); PH,URINE 5 (5-9); PROTEIN,URINE 1+ (NEGATIVE); UROBILINOGEN,URINE NORMAL (NORMAL)
[2018-08-10 20:58] LABS: AMORPHOUS SEDIMENT,UR RARE AMOR URATES /LPF; BACTERIA,URINE TRACE /HPF
[2018-08-10 21:32] VITALS: BP 135/75
[2018-08-10] MEDS ORDERED: NS W/KCL 20 MEQ/L 1,000 ML IV ONE (21:44)
[2018-08-10] MEDS ORDERED: ACETAMINOPHEN 325 MG TABLET PO PRN (22:00)
[2018-08-10] MEDS ORDERED: RT-ALBUTEROL SULF 2.5 MG/3 ML PRE-MIX VIAL IH PRN (22:00)
[2018-08-10] MEDS ORDERED: IBUPROFEN TABLET 200 MG TAB PO PRN (22:00)
[2018-08-10] MEDS ORDERED: NS W/KCL 20 MEQ/L 1,000 ML IV SCH (22:00)
[2018-08-10] MEDS: RT-ALBUTEROL/IPRATROPIUM 3 ML (DUONEB) VIAL IH SCH (22:30)
[2018-08-11] VITALS: BP 104/59
[2018-08-11] MEDS: methylPREDNISolone 40 MG/ML (Solu-MEDROL) VIAL IV SCH ×4 (01:09→17:48)
[2018-08-11] MEDS: RT-ALBUTEROL/IPRATROPIUM 3 ML (DUONEB) VIAL IH SCH ×6 (02:35→22:48)
[2018-08-11 03:41] LABS: BASOPHILS % (AUTO) 0 % (0-10); EOSINOPHILS % (AUTO) 0 % (0-10); HEMATOCRIT 40 % (35-52); LYMPHOCYTES # (AUTO) 0.5 X 10^3 (1.0-4.0); LYMPHOCYTES % (AUTO) 9 % (12-44); MEAN CORPUSCULAR HEMOGLOBIN 29 PG (25-34); MEAN CORPUSCULAR HGB CONC 32 G/DL (32-36); MEAN CORPUSCULAR VOLUME 91 FL (80-99); MEAN PLATELET VOLUME 9.9 FL (7.4-10.4); MONOCYTES # (AUTO) 0.1 X 10^3 (0.0-1.0); MONOCYTES % (AUTO) 1 % (0-12); NEUTROPHILS # (AUTO) 5.2 X 10^3 (1.8-7.8); NEUTROPHILS % (AUTO) 90 % (42-75); PLATELET COUNT 235 10^3/uL (130-400); RED CELL DISTRIBUTION WIDTH 13.7 % (10.0-14.5); WHITE BLOOD COUNT 5.8 10^3/uL (4.3-11.0)
[2018-08-11 04:00] VITALS: BP 123/73
[2018-08-11 04:00] LABS: BUN/CREATININE RATIO 12; CALCIUM 8.6 MG/DL (8.5-10.1); CARBON DIOXIDE 19 MMOL/L (21-32); CHLORIDE 111 MMOL/L (98-107); CREATININE SERUM 0.65 MG/DL (0.60-1.30); GFR ESTIMATED > 60; GLUCOSE 145 MG/DL (70-105); SODIUM 140 MMOL/L (135-145)
[2018-08-11 05:32] LABS: LYMPHOCYTES % (MANUAL) 9 %; MONOCYTES % (MANUAL) 1 %; NEUTROPHILS % (MANUAL) 90 %
--- NOTE | 2018-08-11 06:12 | Pulmonary Consultation ---
History of Present Illness History of Present Illness Date of Consultation 08/11/18 06:07 Time Seen by Provider: 06:47 Date of Admission History of Present Illness 62yo with hx of severe oxygen dependent COPD multiple hospitalizations, and persistent tobacco use,presented to ED secondary to worsening respiratory distress, body aches, and fevers. Pt tested positive for influenza A in the ED. She was admitted to ICU with tamiflu, solumedrol, and SVNS. I am consulted for pulmonary management. Allergies and Home Medications Allergies Coded Allergies: oxycodone HCl (Verified Adverse Reaction, Severe, BLACK OUT, 12/04/11) morphine (Verified Adverse Reaction, Intermediate, Blackout, 10/11/16) Home Medications Albuterol Sulfate 8.5 Gm Hfa.aer.ad, 8.5 GM IH Q4H Prescribed by: CINDY ARGUELLO on 02/18/13 1022 Albuterol Sulfate 2.5 Mg/3 Ml Vial.neb, 2.5 MG INH Q4H PRN for WHEEZING Prescribed by: JOY HERNÁNDEZ on 07/24/18 1309 Ascorbic Acid 500 Mg Tablet, 500 MG PO DAILY, (Reported) Benzonatate 100 Mg Capsule, 1-2 TAB PO TID Prescribed by: DAWSON ALVARADO on 10/11/162121 Budesonide 90 Mcg Aer.pow.ba, 90 MCG IH BID Prescribed by: DAWSON ALVARADO on 10/11/162121 Budesonide/Formoterol Fumarate 1 Puff Puff, 2 PUFF IH RTBID Prescribed by: CINDY ARGUELLO on 02/18/13 102 Calcium Carbonate/Vitamin D3 1 Each Tablet, 1 TAB PO DAILY, (Reported) Cefdinir 300 Mg Capsule, 300 MG PO BID FOR INFECTION Prescribed by: DAWSON ALVARADO on 10/11/162121 Cholecalciferol (Vitamin D3) 400 Unit Capsule, 400 UNIT PO DAILY, (Reported) Cyanocobalamin 1,000 Mcg Tablet.sa, 250 MCG PO DAILY, (Reported) D-Methorphan Hb/Prometh HCl 118 Ml Syrup, 1-2 TSP PO Q4H Prescribed by: DAWSON ALVARADO on 10/11/162121 Fentanyl 1 Ea Patch, 25 MCG TD Q72H Prescribed by: CINDY ARGUELLO on 02/18/13 1022 Guaifenesin 100 Mg/5 Ml Syrp, 200 MG PO QID PRN Prescribed by: CINDY ARGUELLO on 02/18/13 1022 Hydrocodone Bit/Acetaminophen 1 Each Tablet, 10-325 MG PO Q4H PRN, (Reported) NEEDED FOR PAIN Levofloxacin 750 Mg Tablet, 750 MG PO DAILY@1100 Prescribed by: CINDY ARGUELLO on 02/18/13 1022 Levothyroxine Sodium 75 Mcg Tablet, 75 MCG PO DAILY, (Reported) Lorazepam 1 Mg Tab, 1 MG PO BID PRN, (Reported) NEEDED FOR ANXIETY Methylprednisolone 4 Mg Tab.ds.pk, 4 MG PO UD Prescribed by: DAWSON ALVARADO on 10/11/16 2122 Methylprednisolone 4 Mg Tab.ds.pk, 4 MG PO UD PER DOSE PACK INSTRUCTIONS Prescribed by: JOY HERNÁNDEZ on 07/24/18 1309 Nicotine 21 Mg Box, 21 MG TD DAILY Prescribed by: CINDY ARGUELLO on 02/18/13 1022 Prednisone 20 Mg Tab, 20 MG PO DAILY@0700 Prescribed by: CINDY ARGUELLO on 02/18/13 1022 Prednisone 10 Mg Tab.ds.pk, 10 MG PO DAILY Take 6 tabs(60mg)daily,decrease by 1 tab(10MG)daily. Prescribed by: REYES GEORGE on 08/04/18 1637 Simvastatin 40 Mg Tablet, 40 MG PO HS, (Reported) Tiotropium [place] 18 Mcg Cap.w.dev, 0 INH IH DAILY@0800 Prescribed by: CINDY ARGUELLO on 02/18/13 1022 Venlafaxine Hcl 75 Mg Cap, 75 MG PO BID, (Reported) Vitamin E Acid Succinate 400 Unit Tablet, 400 UNIT PO DAILY, (Reported) Past Ylbnmzq-Gfyqhx-Eqnxcp Hx Past Med/Social Hx: Reviewed and Corrections made Patient Social History Alcohol Use: Denies Use Recreational Drug Use: No Smoking Status: Heavy Tobacco Smoker Type Used: Cigarettes Former Smoker, Quit: Jul 17, 2018 2nd Hand Smoke Exposure: Yes Recent Foreign Travel: No Contact w/Someone Who Travel: No Recent Infectious Disease Expo: No Recent Hopitalizations: No Physical Abuse: No Sexual Abuse: No Immunizations Up To Date Tetanus Booster (TDap): Less than 5yrs Date of Pneumonia Vaccine: Jan 14, 2012 Date of Influenza Vaccine: May 15, 2018 Seasonal Allergies Seasonal Allergies: No Past Medical History Surgeries: Yes (CARPAL TUNNEL, HAND SURGERY) Abdominal, Appendectomy, Breast, Orthopedic, Tubal Ligation Respiratory: Yes COPD Cardiac: Yes (carotid artery problem) High Cholesterol, Peripheral Vascular Neurological: No 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: No 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 Sexually Transmitted Disease: No Genitourinary: No Gastrointestinal: Yes Gastroesophageal Reflux, Hiatal Hernia Musculoskeletal: Yes (athritis lower back) Degenerate Disk Disease, Arthritis, Chronic Back Pain Endocrine: Yes Hypothyroidsim HEENT: No Cancer: Yes Breast, Lymphoma Psychosocial: Yes Anxiety Integumentary: No Blood Disorders: No Review of Systems Time Seen by Provider: 06:50 Constitutional: Fever, Chills, Sweats, Weakness, Malaise Eyes: No: Pain, Vision change, Conjunctivae inflammation, Eyelid inflammation, Other, Redness ENT: Nose congestion; No: Ear pain, Ear discharge, Nose pain, Nose discharge, Mouth pain, Mouth swelling, Throat pain, Throat swelling, Other Respiratory: Cough, Dry, Shortness of breath, SOB with excertion, Wheezing; No : Hemoptysis, Pleuritic Pain Cardiovascular: Palpitations, Paroxysmal Noc. Dyspnea, Lt Headedness; No: Edema Gastrointestinal: Nausea; No: Vomiting, Abdominal Pain, Diarrhea, Constipation , Melena, Hematochezia, Other Genitourinary: No Dysuria, No Frequency, No Incontinence, No Hematuria, No Retention, No Other Neurological: Weakness Sepsis Event Evaluation Height, Weight, BMI Height: 5'1.00" Weight: 118lbs. 0.0oz. 53.615560on; 22.3 BMI Method:Stated Exam Exam Vital Signs Date Time Temp Pulse Resp B/P (MAP) Pulse Ox O2 Delivery O2 Flow Rate FiO2 08/11/18 04:00 80 15 123/73 (90) 98 Nasal Cannula 3.00 08/11/18 04:00 Nasal Cannula 2.00 08/11/18 03:17 Nasal Cannula 3.00 08/11/18 02:51 Nasal Cannula 2.00 08/11/18 02:40 Nasal Cannula 1.00 08/11/18 02:35 97 Nasal Cannula 3.00 08/11/18 01:53 98.8 08/11/18 01:46 Nasal Cannula 2.00 08/11/18 01:00 75 08/11/18 00:00 86 16 104/59 (74) 94 Room Air 08/11/18 00:00 99.0 08/11/18 00:00 Nasal Cannula 2.00 08/10/18 22:30 94 Nasal Cannula 2.50 08/10/18 21:45 102 08/10/18 21:32 99.8 96 22 135/75 (95) 93 Room Air 08/10/18 21:25 100.3 106 20 136/83 (100) 100 Room Air 08/10/18 20:38 100.3 106 20 128/80 100 Simple Mask 08/10/18 20:09 94 Room Air 08/10/18 19:58 94 Room Air 08/10/18 19:39 101.2 115 22 133/89 (104) 94 Room Air I & O 08/11/18 07:00 Intake Total 1100 ml Balance 1100 ml Height & Weight Height: 5'1.00" Weight: 118lbs. 0.0oz. 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
[2018-08-11 06:26] LABS: PHOSPHORUS 3.3 MG/DL (2.3-4.7)
[2018-08-11] MEDS ORDERED: LACTATED RINGERS 1,000 ML IV ONE (06:44)
[2018-08-11] MEDS: LACTATED RINGERS 1,000 ML IV SCH ×2 (06:52→19:51)
[2018-08-11] MEDS ORDERED: RT-BUDESONIDE NEBS 0.5 MG/2ML (PULMICORT) AMP ONE (06:57)
[2018-08-11] MEDS: RT-BUDESONIDE NEBS 0.5 MG/2ML (PULMICORT) AMP INH SCH ×2 (07:02→19:00)
[2018-08-11] MEDS: NICOTINE 21 MG (NICODERM) PATCH TD SCH (07:52)
[2018-08-11] MEDS: OSELTAMIVIR 75 MG (TAMIFLU) CAPSULE PO SCH ×2 (07:52→21:58)
[2018-08-11 07:55] VITALS: BP 109/70
[2018-08-11 12:00] VITALS: BP 116/68
--- NOTE | 2018-08-11 12:42 | History & Physical-Hospitalist ---
History of Present Illness HPI/Chief Complaint CC: Dyspnea HPI: This is a 62yoWF who has come to the ER 4 times this past month for COPD issues who continues to smoke who presented to the ER with wheezing and found to have influenza causing AECOPD. Patient reports feeling much better since receiving overnight treatment and currently ready to move to 4th floor. Patient is committed to stopping smoking now. Source: patient Exam Limitations: no limitations Date Seen 08/11/18 Time Seen by a Provider: 11:30 Attending Physician Babita Walden DO [facility] [place],[facility] Referring Physician Date of Admission Aug 10, 2018 at 20:26 Home Medications & Allergies Home Medications Reviewed patient Home Medication Reconciliation performed by pharmacy medication reconciliations software support technician and/or nursing. Patients Allergies have been reviewed. Allergies Allergies Coded Allergies oxycodone HCl (Verified Adverse Reaction, Severe, BLACK OUT, 12/04/11) morphine (Verified Adverse Reaction, Intermediate, Blackout, 10/11/16) Past Hxqxbid-Muotlu-Qybmap Hx Past Med/Social Hx: Reviewed Nursing Past Med/Soc Hx, Reviewed and Corrections made Patient Social History Alcohol Use: Denies Use Recreational Drug Use: No Smoking Status: Heavy Tobacco Smoker Former Smoker, Quit: Jul 17, 2018 Type Used: Cigarettes 2nd Hand Smoke Exposure: Yes Recent Foreign Travel: No Contact w/other who traveled: No Recent Hopitalizations: No Recent Infectious Disease Expo: No Immunizations Up To Date Tetanus Booster (TDap): Less than 5yrs Date of Pneumonia Vaccine: Jan 14, 2012 Date of Influenza Vaccine: May 15, 2018 Seasonal Allergies Seasonal Allergies: No Past Medical History Surgeries: Abdominal, Appendectomy, Breast, Orthopedic, Tubal Ligation Respiratory: COPD Cardiac: High Cholesterol, Peripheral Vascular 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: No Sexually Transmitted Disease: No Menopausal Gastrointestinal: Gastroesophageal Reflux, Hiatal Hernia Musculoskeletal: Degenerate Disk Disease, Arthritis, Chronic Back Pain Endocrine: Hypothyroidsim Cancer: Breast, Lymphoma Psychosocial: Anxiety History of Blood Disorders: No Review of Systems Constitutional: see HPI EENTM: no symptoms reported Respiratory: cough, dyspnea on exertion, short of breath, wheezing Cardiovascular: no symptoms reported Gastrointestinal: loss of appetite Musculoskeletal: no symptoms reported Skin: no symptoms reported Psychiatric/Neurological: No Symptoms Reported All Other Systems Reviewed Negative Unless Noted: Yes Physical Exam Physical Exam Vital Signs Vital Signs - First Documented 08/10/18 19:39 Temp 101.2 Pulse 115 Resp 22 B/P (MAP) 133/89 (104) Pulse Ox 94 O2 Delivery Room Air Capillary Refill : Less Than 3 Seconds Height, Weight, BMI Height: 5'1.00" Weight: 118lbs. 0.0oz. 53.780237ax; 22.3 BMI Method:Stated General Appearance: No Apparent Distress, WD/WN, Chronically ill Eyes: Right Eye Normal Inspection, Right Eye PERRL HEENT: PERRL/EOMI, Normal ENT Inspection, Pharynx Normal, Moist Mucous Membranes Neck: Full Range of Motion, Normal Inspection, Non Tender Respiratory: Chest Non Tender, No Accessory Muscle Use, No Respiratory Distress , Wheezing Cardiovascular: Regular Rate, Rhythm, No Edema, No Gallop, No JVD, No Murmur, Normal Peripheral Pulses Gastrointestinal: Normal Bowel Sounds, No Organomegaly, No Pulsatile Mass, Non Tender, Soft Back: Normal Inspection, No CVA Tenderness, No Vertebral Tenderness Extremity: Normal Capillary Refill, Normal Inspection, Normal Range of Motion, Non Tender, No Calf Tenderness, No Pedal Edema Neurologic/Psychiatric: Alert, Oriented x3, No Motor/Sensory Deficits, Normal Mood/Affect Skin: Normal Color, Warm/Dry Lymphatic: No Adenopathy Results Results/Procedures Labs Laboratory Tests 08/10/18 19:45 08/11/18 03:34 Patient resulted labs reviewed. Assessment/Plan Admission Diagnosis Assessment: Acute on chronic respiratory failure AECOPD Influenza A Metabolic acidosis Current smoker Medical noncompliance Transfer to 4th floor Smoking cessation Steroids Tamiflu Admission Status: Inpatient Order (span 2 midnights) Reason for Inpatient Admission: Severe copd with influenza will require 3 days Diagnosis/Problems Diagnosis/Problems (1) Influenza A Status: Acute (2) Smoker Status: Acute (3) COPD exacerbation Status: Acute (4) Non-compliance Status: Chronic Clinical Quality Measures DVT/VTE Risk/Contraindication: Risk Factor Score Per Nursin RFS Level Per Nursing on Admit: 3=High BABITA WALDEN DO Aug 11, 2018 12:42
[2018-08-11 19:47] VITALS: BP 123/84
[2018-08-12] VITALS: BP 111/92
[2018-08-12] MEDS: methylPREDNISolone 40 MG/ML (Solu-MEDROL) VIAL IV SCH (01:38)
[2018-08-12] MEDS: RT-ALBUTEROL/IPRATROPIUM 3 ML (DUONEB) VIAL IH SCH ×3 (02:45→11:06)
[2018-08-12 04:00] VITALS: BP 142/84
--- NOTE | 2018-08-12 05:40 | Pulmonary Progress Note ---
Subjective Time Seen by a Provider: 05:40 Sepsis Event Evaluation Height, Weight, BMI Height: 5'1.00" Weight: 118lbs. 0.0oz. 53.484596mo; 22.3 BMI Method:Stated Focused Exam Lactate Level 08/10/18 19:55: Lactic Acid Level 1.32 Exam Exam Vital Signs Date Time Temp Pulse Resp B/P (MAP) Pulse Ox O2 Delivery O2 Flow Rate FiO2 08/12/18 04:00 86 19 142/84 (103) 95 Nasal Cannula 1.00 08/12/18 04:00 Nasal Cannula 2.00 08/12/18 02:46 93 Nasal Cannula 1.00 08/12/18 01:00 99 08/12/18 00:00 Nasal Cannula 2.00 08/12/18 00:00 106 17 111/92 (98) 90 Nasal Cannula 1.00 08/11/18 22:48 94 Nasal Cannula 1.00 08/11/18 21:00 95 Nasal Cannula 2.00 08/11/18 20:00 Nasal Cannula 2.00 08/11/18 19:47 97.8 105 18 123/84 (97) 91 Nasal Cannula 2.00 08/11/18 19:06 94 Nasal Cannula 1.00 08/11/18 19:01 94 Nasal Cannula 1.00 08/11/18 19:00 104 08/11/18 16:45 97.4 08/11/18 16:00 Nasal Cannula 2.00 08/11/18 14:39 90 Nasal Cannula 1.00 08/11/18 13:25 96 08/11/18 12:00 87 16 116/68 (84) 90 Room Air 08/11/18 12:00 Nasal Cannula 2.00 08/11/18 12:00 97.1 08/11/18 10:31 91 Nasal Cannula 2.00 08/11/18 09:00 95 Room Air 08/11/18 08:00 Nasal Cannula 2.00 08/11/18 07:55 97.4 87 20 109/70 (83) 94 Room Air 08/11/18 07:39 Nasal Cannula 2.00 08/11/18 07:09 98 Nasal Cannula 2.00 08/11/18 07:02 96 Nasal Cannula 3.00 08/11/18 07:00 75 I & O 08/12/18 07:00 Intake Total 300 ml Balance 300 ml Height & Weight Height: 5'1.00" Weight: 118lbs. 0.0oz. 53.950930ix; 22.3 BMI Method:Stated General Appearance: No Apparent Distress, WD/WN, Chronically ill HEENT: PERRL/EOMI, Normal ENT Inspection, Pharynx Normal, Moist Mucous Membranes Neck: Full Range of Motion, Normal Inspection, Non Tender Respiratory: Chest Non Tender, No Accessory Muscle Use, No Respiratory Distress , Wheezing Cardiovascular: Regular Rate, Rhythm, No Edema, No Gallop, No JVD, No Murmur, Normal Peripheral Pulses Capillary Refill: Less Than 3 Seconds Extremity: Normal Capillary Refill, Normal Inspection, Normal Range of Motion, Non Tender, No Calf Tenderness, No Pedal Edema Neurologic/Psychiatric: Alert, Oriented x3, No Motor/Sensory Deficits, Normal Mood/Affect Skin: Normal Color, Warm/Dry Lymphatic: No Adenopathy Results Lab Laboratory Tests 08/10/18 19:45 08/11/18 03:34 Assessment/Plan Assessment/Plan Acute on chronic respiratory failure - Improving COPDAE secondary to influenza A -Solumedrol -- change to prednisone taper -SVNs -Oxygen Influenza A -Tamiflu Metabolic acidosis -Monitor Persistent tobacco use -Education Medical noncompliance JO ELIZABETH DO Aug 12, 2018 05:40
[2018-08-12] MEDS: RT-BUDESONIDE NEBS 0.5 MG/2ML (PULMICORT) AMP INH SCH (07:01)
[2018-08-12] MEDS: NICOTINE 21 MG (NICODERM) PATCH TD SCH (07:44)
[2018-08-12] MEDS: OSELTAMIVIR 75 MG (TAMIFLU) CAPSULE PO SCH (07:44)
[2018-08-12 07:46] VITALS: BP 123/86
[2018-08-12] MEDS ORDERED: predniSONE 10 MG TAB PO SCH (09:00)
--- NOTE | 2018-08-12 11:11 | NUR ---
HOME OXYGEN STUDY PT DESATTED AT REST ON ROOM AIR TO SPO2 87% AFTER 20 MINUTES, PLACED BACK ON 2 LPM NASAL CANNULA AND SPO2 INCREASED TO 94%, PT WILL REQUIRE 2 LPM OF OXYGEN VIA NASAL CANNULA AT ALL TIMES
[2018-08-12] MEDS ORDERED: PRED10TA22 PO (12:59)
--- NOTE | 2018-08-12 13:01 | Discharge Summary-Hospitalist ---
Diagnosis/Chief Complaint Date of Admission Aug 10, 2018 at 20:26 Date of Discharge Discharge Date: Aug 12, 2018 Admission Diagnosis Assessment: Acute on chronic respiratory failure AECOPD Influenza A Metabolic acidosis Current smoker Medical noncompliance Transfer to 4th floor Smoking cessation Steroids Tamiflu Discharge Diagnosis (1) Influenza A Status: Acute (2) Smoker Status: Acute (3) COPD exacerbation Status: Acute (4) Non-compliance Status: Chronic Discharge Summary Discharge Physical Exam Allergies: Coded Allergies: oxycodone HCl (Verified Adverse Reaction, Severe, BLACK OUT, 12/04/11) morphine (Verified Adverse Reaction, Intermediate, Blackout, 10/11/16) Vitals & I&Os Vital Signs Date Time Temp Pulse Resp B/P (MAP) Pulse Ox O2 Delivery O2 Flow Rate FiO2 08/12/18 13:31 110 24 142/85 94 Nasal Cannula 2.00 08/12/18 13:30 97.8 General Appearance: No Apparent Distress, WD/WN, Chronically ill Respiratory: Lungs Clear, Normal Breath Sounds, Decreased Breath Sounds Neurologic/Psychiatric: Alert, Oriented x3, No Motor/Sensory Deficits, Normal Mood/Affect Hospital Course Was the Problem List Reviewed?: Yes Hospital course: Patient had a brief hospital course she was admitted for influenza placed on Tamiflu and treated for exacerbation of COPD with IV steroids. Overall she responded rapidly and was deemed stable for discharge and did not require any Tamiflu extension due to the fact that she was doing well and likely out of the window for any additional benefit to continue anyway. Patient was deemed meeting criteria for home oxygen and those orders were placed along with taper dose of steroids patient was discharged. Labs (last 24 hrs) Microbiology 08/10/18 Blood Culture - Preliminary, Resulted No growth 08/10/18 Influenza Types A,B Antigen (RAEANN) - Final, Complete 08/10/18 Urine Culture - Final, Complete 3 or more isolates Patient resulted labs reviewed. Discussion & Recommendations Discharge Planning: <30 minutes discharge planning Discharge Home Medications: Active Scripts Active Prednisone 10 Mg Tab.ds.pk 10 Mg PO DAILY Take 6 tabs(60mg)daily,decrease by 1 tab(10MG)daily. Albuterol Sulfate 2.5 Mg/3 Ml Vial.neb 2.5 Mg INH Q4H PRN Tessalon Perles (Benzonatate) 100 Mg Capsule 1-2 Tab PO TID Pulmicort Flexhaler (Budesonide) 90 Mcg Aer.pow.ba 90 Mcg IH BID Promethazine-Dm Syrup (D-Methorphan Hb/Prometh HCl) 118 Ml Syrup 1-2 Tsp PO Q4H Albuterol Sulfate Hfa (Albuterol) 8.5 Gm Hfa.aer.ad 8.5 Gm IH Q4H 30 Days Nicoderm 21MG (Nicotine) 21 Mg Box 21 Mg TD DAILY 14 Days Robitussin Syrup (Guaifenesin) 100 Mg/5 Ml Syrp 200 Mg PO QID PRN 30 Days Spiriva (Tiotropium [place]) 18 Mcg Cap.w.dev 0 Inh IH DAILY@0800 30 Days Symbicort Common Canister (Budesonide/Formoterol Fumarate) 1 Puff Puff 2 Puff IH RTBID 30 Days Reported Levothyroxine 75 Mcg Tab (Levothyroxine Sodium) 75 Mcg Tablet 75 Mcg PO DAILY Vitamin C 500 Mg (Ascorbic Acid) 500 Mg Tablet 500 Mg PO DAILY Calcium 500 + D3 Tablet (Calcium Carbonate/Vitamin D3) 1 Each Tablet 1 Tab PO DAILY Vitamin E (Vitamin E Acid Succinate) 400 Unit Tablet 400 Unit PO DAILY Vitamin D3 (Cholecalciferol (Vitamin D3)) 400 Unit Capsule 400 Unit PO DAILY Ativan (Lorazepam) 1 Mg Tab 1 Mg PO BID PRN NEEDED FOR ANXIETY Simvastatin 40 Mg Tablet 40 Mg PO HS Effexor Xr (Venlafaxine HCl) 75 Mg Cap 75 Mg PO BID Vitamin B12 (Cyanocobalamin) 1,000 Mcg Tablet.sa 250 Mcg PO DAILY Instructions to patient/family Please see electronic discharge instructions given to patient. Clinical Quality Measures DVT/VTE Risk/Contraindication: Risk Factor Score Per Nursin RFS Level Per Nursing on Admit: 3=High JAGDEEP HAYNES DO Aug 12, 2018 13:01
[2018-08-12 13:30] VITALS: BP 142/85
[2018-08-12 13:31] VITALS: BP 142/85
[2018-08-12 14:20] VITALS: BP 142/85
--- NOTE | 2018-08-12 14:21 | NUR ---
HOME OXYGEN SUPPLIED BY [facility]. PT D/C WITH HOME 02
== END 2018-08-12 14:05 | disposition home or self-care (01) | DRG 190 ==
LOC: EDUNIT# 19:35 → ER 19:36 → ICU 20:26
PROVIDERS: ADMIT Internal Medicine; ATTEND Internal Medicine
DX: J44.1 Chronic obstructive pulmonary disease with (acute) exacerbation (principal); J44.0 Chronic obstructive pulmonary disease with (acute) lower respiratory infection; J10.1 Influenza due to other identified influenza virus with other respiratory manifestations; J96.20 Acute and chronic respiratory failure, unspecified whether with hypoxia or hypercapnia; E87.2 Acidosis; E78.00 Pure hypercholesterolemia, unspecified; I73.9 Peripheral vascular disease, unspecified; K21.9 Gastro-esophageal reflux disease without esophagitis; E03.9 Hypothyroidism, unspecified; F41.9 Anxiety disorder, unspecified; F17.210 Nicotine dependence, cigarettes, uncomplicated; Z91.19 Patient's noncompliance with other medical treatment and regimen
CPT/HCPCS: 36415; 71045; 80048; 80053; 81000; 83605; 83735; 84100; 85007; 85025; 85027; 85610; 85730; 87040; 87088; 87804; 94640; 94760; 94761; 96374

== ENCOUNTER → 2018-09-05 | Outpatient (CLI) | payer MEDICARE ==
[~2018-09-05] MED LIST changes: +HOLD METFORMIN - RECEIVED CONTRAST 20 ML VIAL IV SCH; +IOHEXOL 350 MG/ML 100 ML (OMNIPAQUE 350) VIAL IV ONE; +RT-ALBUTEROL SULF 2.5 MG/3 ML PRE-MIX VIAL INH ONE; +RT-ALBUTEROL SULF 2.5 MG/3 ML PRE-MIX VIAL ONE
[2018-09-05 16:31] LABS: BUN/CREATININE RATIO 19; CREATININE SERUM 0.67 MG/DL (0.60-1.30); GFR ESTIMATED > 60
== END ==
LOC: RAD 15:22
PROVIDERS: ATTEND Nurse Practitioner Family
DX: J44.9 Chronic obstructive pulmonary disease, unspecified (principal); Z72.0 Tobacco use
CPT/HCPCS: 36415; 82565; 84520

== ENCOUNTER → 2018-09-20 | Outpatient (CLI) | payer MEDICARE ==
[~2018-09-20] MED LIST changes: -IOHEXOL 350 MG/ML 100 ML (OMNIPAQUE 350) VIAL IV ONE; -RT-ALBUTEROL SULF 2.5 MG/3 ML PRE-MIX VIAL INH ONE; -RT-ALBUTEROL SULF 2.5 MG/3 ML PRE-MIX VIAL ONE
[2018-09-20] MEDS: IOHEXOL 350 MG/ML 100 ML (OMNIPAQUE 350) VIAL IV ONE (15:38)
--- NOTE | 2018-09-20 15:56 | Diagnostic Imaging Report ---
PROCEDURE: CT chest with contrast only. TECHNIQUE: Multiple contiguous axial images were obtained through the chest after administration of intravenous contrast. Auto Exposure Controls were utilized during the CT exam to meet ALARA standards for radiation dose reduction. INDICATION: COPD, cough and lung nodules. Study is performed for followup. COMPARISON: Correlation is made with prior CT chest from 07/04/2013. FINDINGS: No axillary lymphadenopathy is detected. There are small lymph nodes in the mediastinum. Sridevi are unremarkable. No pericardial or pleural fluid is detected. Central airways are patent. There are significant emphysematous changes of bilateral upper lobes with biapical pleural parenchymal scarring. No parenchymal mass or nodule is detected. Upper abdomen is unremarkable. IMPRESSION: Severe emphysematous changes. No thoracic lymphadenopathy or pulmonary parenchymal mass is detected. Dictated by: Dictated on workstation # [id number]
== END ==
LOC: RAD 15:15
PROVIDERS: ATTEND Nurse Practitioner Family
DX: J43.9 Emphysema, unspecified (principal); J45.909 Unspecified asthma, uncomplicated; Z72.0 Tobacco use
CPT/HCPCS: 71260

== ENCOUNTER 2018-10-01 14:10 | Outpatient (RCR) | payer MEDICARE, OTHER ==
[~2018-10-01 14:10] MED LIST changes: -D-ME118S7 PO; -HOLD METFORMIN - RECEIVED CONTRAST 20 ML VIAL IV SCH; +PROM118S4 PO
[2018-10-15] MEDS ORDERED: PRD20T PO (17:57)
== END 2018-12-30 | disposition home or self-care (01) ==
LOC: PULM 14:10
PROVIDERS: ATTEND Nurse Practitioner Family
DX: J44.9 Chronic obstructive pulmonary disease, unspecified (principal); R06.89 Other abnormalities of breathing; R05 Cough; R06.00 Dyspnea, unspecified; R91.1 Solitary pulmonary nodule; Z72.0 Tobacco use
CPT/HCPCS: 99211

== ENCOUNTER 2018-10-15 14:54 | Emergency (ER) | payer MEDICARE ==
[~2018-10-15] VITALS: Ht 154.9 cm; Wt 53.1 kg
[~2018-10-15 14:54] MED LIST changes: +D-ME118S7 PO; -PROM118S4 PO
--- NOTE | 2018-10-15 15:00 | NUR ---
pt her nick rescue from home. ems tx includes iv pl 20 g r hand, monitor, o2 per neb tx x 3 still going in er, and transport. pt alert gcs 15 in moderate dyspnea with resp shallow and labored. no duskiness or cyanosis but accessory muscle use noted. pt only c/o dyspnea worsening since this am. pt appears anxious. denies chest and abd pain. lungs exp wheezes bilaterally. none audible. abd soft nondistended neg pain with palpation. pt on home o2 2 n/c which placed pt on in er. tele applied shows st 112. labs to lab by me and done isiah pt at 1512.
[2018-10-15] MEDS ORDERED: methylPREDNISolone 125 MG (Solu-MEDROL) VIAL IV STA (15:04)
[2018-10-15] MEDS ORDERED: LORazepam INJ 2 MG/ML (ATIVAN) VIAL IVP ONE (15:15)
--- NOTE | 2018-10-15 15:20 | NUR ---
ekg by me
[2018-10-15 15:24] LABS: BASOPHILS % (AUTO) 0 % (0-10); EOSINOPHILS # (AUTO) 0.4 10^3/uL (0.0-0.3); EOSINOPHILS % (AUTO) 4 % (0-10); HEMATOCRIT 43 % (35-52); HEMOGLOBIN 13.7 G/DL (11.5-16.0); LYMPHOCYTES # (AUTO) 1.2 X 10^3 (1.0-4.0); LYMPHOCYTES % (AUTO) 12 % (12-44); MEAN CORPUSCULAR HEMOGLOBIN 29 PG (25-34); MEAN CORPUSCULAR HGB CONC 32 G/DL (32-36); MEAN CORPUSCULAR VOLUME 88 FL (80-99); MEAN PLATELET VOLUME 10.1 FL (7.4-10.4); MONOCYTES # (AUTO) 0.7 X 10^3 (0.0-1.0); MONOCYTES % (AUTO) 6 % (0-12); NEUTROPHILS # (AUTO) 7.9 X 10^3 (1.8-7.8); NEUTROPHILS % (AUTO) 77 % (42-75); PLATELET COUNT 243 10^3/uL (130-400); RED CELL DISTRIBUTION WIDTH 13.4 % (10.0-14.5); WHITE BLOOD COUNT 10.2 10^3/uL (4.3-11.0)
[2018-10-15 15:53] LABS: ALANINE AMINOTRANSFERASE 14 U/L (0-55); ALBUMIN 4.4 GM/DL (3.2-4.5); ALKALINE PHOSPHATASE 103 U/L (40-136); BILIRUBIN,TOTAL 0.2 MG/DL (0.1-1.0); BUN/CREATININE RATIO 13; CALCIUM 9.6 MG/DL (8.5-10.1); CARBON DIOXIDE 22 MMOL/L (21-32); CHLORIDE 108 MMOL/L (98-107); CREATININE SERUM 0.67 MG/DL (0.60-1.30); GFR ESTIMATED > 60; GLUCOSE 100 MG/DL (70-105); POTASSIUM 4.3 MMOL/L (3.6-5.0); SODIUM 141 MMOL/L (135-145)
[2018-10-15 16:00] VITALS: BP 117/71
--- NOTE | 2018-10-15 16:00 | NUR ---
tele shows sr 95.pt remains alert gcs 15. here by self. pt denies chest and abd pain. still c/o dyspnea. pt with mod dyspnea. resp shallow labored with accessory muscle use noted though it is just a little less. no duskiness and cyanosis noted. pt has nonproductive congested cough in er and is audiblly wheezing now expiratory. lungs remain wheezes all vann bilaterally. pt only pain c/o is a h/a.
--- NOTE | 2018-10-15 16:07 | Diagnostic Imaging Report ---
INDICATION: Wheezing and shortness of air. TIME OF EXAM: 3:51 p.m. COMPARISON: Correlation is made with prior study from 08/10/2018. FINDINGS: There are emphysematous changes in both lungs. No infiltrates are seen. There is no effusion or pneumothorax. IMPRESSION: Emphysematous changes. No acute feature is detected. Dictated by: Dictated on workstation # [id number]
[2018-10-15] MEDS ORDERED: RT-ALBUTEROL SULF 2.5 MG/3 ML PRE-MIX VIAL ONE (16:28)
[2018-10-15] MEDS ORDERED: RT-IPRATROPIUM (ATROVENT) 0.5MG/2.5ML AMP IH ONE (16:28)
--- NOTE | 2018-10-15 17:27 | NUR ---
pt remains here by self alert gcs 15. pt been sleeping with continuous neb on r/a and o2 2 /n/c going. resp appear less dtyspneic but dyspnea continues with slight accessory muscle use noted. no audible wheezing noted though lungs remains exp wheezes bilaterally. pt has rhonchi in bronchi with the congested cough in er. no cyanosis or dukiness noted tele shows st 101. neb tx has little bit left for continuous x 1 hr. resp shallow and little less labored.
[2018-10-15 17:31] VITALS: BP 120/71
--- NOTE | 2018-10-15 17:40 | ED Respiratory ---
General Chief Complaint: Respiratory Problems Stated Complaint: SOA Nursing Triage Note: pt here by rescue from home. pt c/o dyspnea. ems tx includes neb txs x 3. Source: patient Exam Limitations: no limitations History of Present Illness Date Seen by Provider: Oct 15, 2018 Time Seen by Provider: 15:00 Initial Comments 62-year-old female who was brought to the emergency room by [facility] for complaints of increasing dyspnea, history of COPD, EMS reports they gave 3 DuoNeb treatments [id number]. The patient is moving more air on arrival to the emergency room. She is no longer wheezing on auscultation. Alert and oriented on arrival. Reports wearing continuous 3 L of oxygen at home. Timing/Duration: this morning Prior Episodes/Possible Cause: occasional episodes Modifying Factors: Improves With Albuterol Nebulizer, Improves With Oxygen Associated Symptoms: shortness of breath Allergies and Home Medications Allergies Coded Allergies: oxycodone HCl (Verified Adverse Reaction, Severe, BLACK OUT, 12/04/11) morphine (Verified Adverse Reaction, Intermediate, Blackout, 10/11/16) Home Medications Albuterol Sulfate 8.5 Gm Hfa.aer.ad, 8.5 GM IH Q4H Prescribed by: CINDY ARGUELLO on 02/18/13 1022 Albuterol Sulfate 2.5 Mg/3 Ml Vial.neb, 2.5 MG INH Q4H PRN for WHEEZING Prescribed by: JOY HERNÁNDEZ on 07/24/18 1309 Ascorbic Acid 500 Mg Tablet, 500 MG PO DAILY, (Reported) Benzonatate 100 Mg Capsule, 1-2 TAB PO TID Prescribed by: DAWSON ALVARADO on 10/11/162121 Budesonide 90 Mcg Aer.pow.ba, 90 MCG IH BID Prescribed by: DAWSON ALVARADO on 10/11/162121 Budesonide/Formoterol Fumarate 1 Puff Puff, 2 PUFF IH RTBID Prescribed by: CINDY ARGUELLO on 02/18/13 1022 Calcium Carbonate/Vitamin D3 1 Each Tablet, 1 TAB PO DAILY, (Reported) Cholecalciferol (Vitamin D3) 400 Unit Capsule, 400 UNIT PO DAILY, (Reported) Cyanocobalamin 1,000 Mcg Tablet.sa, 250 MCG PO DAILY, (Reported) D-Methorphan Hb/Prometh HCl 118 Ml Syrup, 1-2 TSP PO Q4H Prescribed by: DAWSON ALVARADO on 10/11/162 Guaifenesin 100 Mg/5 Ml Syrp, 200 MG PO QID PRN Prescribed by: CINDY ARGUELLO on 02/18/13 1022 Levothyroxine Sodium 75 Mcg Tablet, 75 MCG PO DAILY, (Reported) Lorazepam 1 Mg Tab, 1 MG PO BID PRN, (Reported) NEEDED FOR ANXIETY Nicotine 21 Mg Box, 21 MG TD DAILY Prescribed by: CINDY ARGUELLO on 02/18/13 1022 Prednisone 10 Mg Tab.ds.pk, 10 MG PO DAILY Take 6 tabs(60mg)daily,decrease by 1 tab(10MG)daily. Prescribed by: JAGDEEP HAYNES on 08/12/18 1259 Prednisone 20 Mg Tab, 40 MG PO DAILY Prescribed by: PAULIE GRACE on 10/15/18 1757 Simvastatin 40 Mg Tablet, 40 MG PO HS, (Reported) Tiotropium [place] 18 Mcg Cap.w.dev, 0 INH IH DAILY@0800 Prescribed by: CINDY ARGUELLO on 02/18/13 1022 Venlafaxine Hcl 75 Mg Cap, 75 MG PO BID, (Reported) Vitamin E Acid Succinate 400 Unit Tablet, 400 UNIT PO DAILY, (Reported) Patient Home Medication List Home Medication List Reviewed: Yes Review of Systems Review of Systems Constitutional: see HPI; No chills, No fever Respiratory: see HPI, cough, short of breath, wheezing All Other Systems Reviewed Negative Unless Noted: Yes Past Psfqcfr-Nhesah-Byvixz Hx Past Med/Social Hx: Reviewed Nursing Past Med/Soc Hx Patient Social History Alcohol Use: Denies Use Recreational Drug Use: No Smoking Status: Current Everyday Smoker Type Used: Cigarettes Former Smoker, Quit: Jul 17, 2018 2nd Hand Smoke Exposure: Yes Recent Foreign Travel: No Contact w/Someone Who Travel: No Recent Infectious Disease Expo: No Recent Hopitalizations: No Physical Abuse: No Sexual Abuse: No Immunizations Up To Date Tetanus Booster (TDap): Less than 5yrs Date of Pneumonia Vaccine: Jan 14, 2012 Date of Influenza Vaccine: May 15, 2018 Seasonal Allergies Seasonal Allergies: No Past Medical History Surgeries: Yes (CARPAL TUNNEL, HAND SURGERY) Abdominal, Appendectomy, Breast, Orthopedic, Tubal Ligation Respiratory: Yes COPD Cardiac: Yes (carotid artery problem) High Cholesterol, Peripheral Vascular Neurological: No 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: No 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 Sexually Transmitted Disease: No Genitourinary: No Gastrointestinal: Yes Gastroesophageal Reflux, Hiatal Hernia Musculoskeletal: Yes (athritis lower back) Degenerate Disk Disease, Arthritis, Chronic Back Pain Endocrine: Yes Hypothyroidsim HEENT: No Cancer: Yes Breast, Lymphoma Psychosocial: Yes Anxiety Integumentary: No Blood Disorders: No Family Medical History Reviewed Nursing Family Hx Physical Exam Vital Signs - First Documented 10/15/18 10/15/18 10/15/18 15:00 15:45 16:00 Temp 98.4 Pulse 112 Resp 32 B/P (MAP) 117/85 (96) Pulse Ox 96 O2 Delivery Nasal Cannula O2 Flow Rate 8.00 Capillary Refill : Less Than 3 Seconds Height: 5'1.00" Weight: 117lbs. 0.0oz. [id number]; 22.3 BMI Method:Stated General Appearance: WD/WN, no apparent distress Respiratory: chest non-tender, lungs clear, normal breath sounds, no respiratory distress, no accessory muscle use Cardiovascular: normal peripheral pulses, regular rate, rhythm, no edema, no gallop, no JVD, no murmur Extremities: normal capillary refill Neurologic/Psychiatric: alert, normal mood/affect, oriented x 3 Skin: normal color, warm/dry Focused Exam Lactate Level 10/15/18 15:26: Lactic Acid Level 0.83 Lactic Acid Level Laboratory Tests Test 10/15/18 15:26 Lactic Acid Level 0.83 MMOL/L (0.50-2.00) Progress/Results/Core Measures Suspected Sepsis Recent Fever Within 48 Hours: No Infection Criteria Present: None New/Unexplained Altered Menta: No Sepsis Screen: No Definite Risk SIRS Temperature:97.8 Pulse: 100 Respiratory Rate: 20 Laboratory Tests 10/15/18 15:09: White Blood Count 10.2 Blood Pressure 120 /71 Mean: 87 10/15/18 15:26: Lactic Acid Level 0.83 Laboratory Tests 10/15/18 15:09: Creatinine 0.67, Platelet Count 243, Total Bilirubin 0.2 Results/Orders Lab Results Laboratory Tests Test 10/15/18 15:09 10/15/18 15:26 Range/Units White Blood Count 10.2 4.3-11.0 10^3/uL Red Blood Count 4.81 4.35-5.85 10^6/uL Hemoglobin 13.7 11.5-16.0 G/DL Hematocrit 43 35-52 % Mean Corpuscular Volume 88 80-99 FL Mean Corpuscular Hemoglobin 29 25-34 PG Mean Corpuscular Hemoglobin Concent 32 32-36 G/DL Red Cell Distribution Width 13.4 10.0-14.5 % Platelet Count 243 130-400 10^3/uL Mean Platelet Volume 10.1 7.4-10.4 FL Neutrophils (%) (Auto) 77 H 42-75 % Lymphocytes (%) (Auto) 12 12-44 % Monocytes (%) (Auto) 6 0-12 % Eosinophils (%) (Auto) 4 0-10 % Basophils (%) (Auto) 0 0-10 % Neutrophils # (Auto) 7.9 H 1.8-7.8 X 10^3 Lymphocytes # (Auto) 1.2 1.0-4.0 X 10^3 Monocytes # (Auto) 0.7 0.0-1.0 X 10^3 Eosinophils # (Auto) 0.4 H 0.0-0.3 10^3/uL Basophils # (Auto) 0.0 0.0-0.1 10^3/uL Sodium Level 141 135-145 MMOL/L Potassium Level 4.3 3.6-5.0 MMOL/L Chloride Level 108 H 98-107 MMOL/L Carbon Dioxide Level 22 21-32 MMOL/L Anion Gap 11 5-14 MMOL/L Blood Urea Nitrogen 9 7-18 MG/DL Creatinine 0.67 0.60-1.30 MG/DL Estimat Glomerular Filtration Rate > 60 BUN/Creatinine Ratio 13 Glucose Level 100 70-105 MG/DL Calcium Level 9.6 8.5-10.1 MG/DL Corrected Calcium 9.3 8.5-10.1 MG/DL Total Bilirubin 0.2 0.1-1.0 MG/DL Aspartate Amino Transf (AST/SGOT) 20 5-34 U/L Alanine Aminotransferase (ALT/SGPT) 14 0-55 U/L Alkaline Phosphatase 103 40-136 U/L B-Type Natriuretic Peptide 47.7 <100.0 PG/ML Total Protein 7.0 6.4-8.2 GM/DL Albumin 4.4 3.2-4.5 GM/DL Lactic Acid Level 0.83 0.50-2.00 MMOL/L Micro Results Microbiology 10/15/18 Blood Culture - Preliminary, Resulted No growth 10/15/18 Blood Culture - Preliminary, Resulted No growth My Orders Orders - LESLYPAULIE Cbc With Automated Diff (10/15/18 15:04) Comprehensive Metabolic Panel (10/15/18 15:04) BNP (10/15/18 15:04) Blood Culture (10/15/18 15:04) Ekg Tracing (10/15/18 15:04) O2 (10/15/18 15:04) Ed Iv/Invasive Line Start (10/15/18 15:04) Monitor-Rhythm Ecg Trace Only (10/15/18 15:04) Methylprednisolone Sod Succ (Solu-Medrol (10/15/18 15:04) Chest Pa/Lat (2 View) (10/15/18 15:04) Lactic Acid Analyzer (10/15/18 15:04) Lorazepam Injection (Ativan Injection) (10/15/18 15:15) Ipratropium 0.02% Neb Solution (Atrovent (10/15/18 16:28) Albuterol Pre-Mix Nebs (Rt) (Proventil (10/15/18 16:28) Iv Push Crime Scene Specialist Ed (10/15/18 ) Medications Given in ED Vital Signs/I&O 10/15/18 10/15/18 10/15/18 10/15/18 15:00 15:45 16:00 16:34 Temp 98.4 97.5 Pulse 112 92 Resp 32 24 B/P (MAP) 117/85 (96) 117/71 (86) Pulse Ox 96 96 O2 Delivery Nasal Cannula Nasal Cannula Nasal Cannula O2 Flow Rate 8.00 2.00 2.00 2.00 10/15/18 10/15/18 10/15/18 17:31 19:19 19:45 Temp 97.8 97.1 97.1 Pulse 100 100 100 Resp 20 16 16 B/P (MAP) 120/71 (87) 106/70 (82) 106/70 (82) Pulse Ox 96 90 90 O2 Delivery Nasal Cannula Room Air Room Air O2 Flow Rate 2.00 Capillary Refill : Less Than 3 Seconds Blood Pressure Mean: 87 Progress Note : Time: 16:20 Progress Note The patient was seen and evaluated. She did have some rebound wheezing and shortness of breath at this time. Albuterol was initiated by RT. We'll continue to monitor the patient. 1745: The patient's breathing treatment has completed at this time. She is feeling much better at this time. She agrees with plan of care, plans for discharge, return precautions were given. Daughter was contacted for transportation home. Diagnostic Imaging Diagonstic Imaging: Xray Plain Films/CT/US/NM/MRI: chest Comments NAME: MICHAEL MARK [facility] REC#: [id number] PT STATUS: REG ER : 1955 PHYSICIAN: PAULIE GRACE ADMIT DATE: 10/15/18/ER Signed Date of Exam: 10/15/18 CHEST PA/LAT (2 VIEW) INDICATION: Wheezing and shortness of air. TIME OF EXAM: 3:51 p.m. COMPARISON: Correlation is made with prior study from 08/10/2018. FINDINGS: There are emphysematous changes in both lungs. No infiltrates are seen. There is no effusion or pneumothorax. IMPRESSION: Emphysematous changes. No acute feature is detected. Dictated by: Dictated on workstation # [id number] Dict: 10/15/18 1602 Trans: 10/16/18 1838 Interpreted by: ROXANA AGUILAR MD Electronically signed by: ROXANA AGUILAR MD 10/16/18 1838 Reviewed: Reviewed by Me Departure Impression Primary Impression: COPD exacerbation Disposition: 01 HOME, SELF-CARE Condition: Stable/Unchanged Departure-Patient Inst. Decision time for Depature: 17:45 Referrals: [facility] [place] (PCP) Primary Care Physician OUMOU DELGADO (Family) Primary Care Physician Patient Instructions: Exacerbation of COPD (DC) Add. Discharge Instructions: Resume your home medications as previously prescribed. Return back to the emergency room symptoms or concerns as needed. All discharge instructions reviewed with patient and/or family. Voiced understanding. Scripts Prednisone (Prednisone) 20 Mg Tab 40 MG PO DAILY for 5 Days, #10 TAB 0 Refills Prov: PAULIE GRACE 10/15/18 PAULIE GRACE Oct 15, 2018 17:40
--- NOTE | 2018-10-15 17:49 | NUR ---
d/cd 02 placed r/a on pt for p ox check r/a. and d/cd the continuous neb.
[2018-10-15] MEDS ORDERED: PRD20T PO (17:57)
--- NOTE | 2018-10-15 18:00 | NUR ---
bp machine is 110/[address]. recheck temp 97.5. p ox r/a is 91 pt sleeping awoke to gcs 15 then fell back asleep. no new cute sighns of dyspnea noted. pt appears over all less dyspneic although dyspnea continues. resp now shallow nonlabored. knows these vs and called family on demo sheet ne said it was a no go. pt said she can call her sister but doesnt know the number and pt has no phone here.
--- NOTE | 2018-10-15 18:00 | NUR ---
sister name was aruna foote.
--- NOTE | 2018-10-15 18:46 | NUR ---
p ox r/a been holding steady at 90.
--- NOTE | 2018-10-15 18:46 | NUR ---
pt been up for d/c. cant get a hold of any body to pick pt up. pt gave me name of sister and where she lives but i cant get anywhere that way either. i suyapa call ems shortly and try them for contact next.
--- NOTE | 2018-10-15 19:00 | NUR ---
i called dispatch. pt came by [facility] from [address] [place] [address]. they have no conact name or number for family. just someone pt had a no contact order on.
--- NOTE | 2018-10-15 19:09 | NUR ---
i just called dispatch back to look for aruna foote they had no luck.
--- NOTE | 2018-10-15 19:17 | NUR ---
pt remains sleeping since i last checked on pt. pt awakes to [facility] 15 then falls back asleep before i get answers to questions. resp are now shallow nonlabored with no accessory muscle use noted. p ox been 88-90 r/a. dr knows this. dr garcia try to admit pt. tele shows st [address] .
[2018-10-15 19:19] VITALS: BP 106/70
--- NOTE | 2018-10-15 19:20 | NUR ---
just called person on demo sheet again. someone answered and will come pick pt up for d/c.
[2018-10-15 19:45] VITALS: BP 106/70
--- NOTE | 2018-10-15 19:45 | NUR ---
daughter here to pick pt up. d/c instructions to family. told to read all papers. scripts faxed. family knows f/u. i went over the handtyped by information on the chart. iv d/cd by me x 2 prior to d/c. pt left in w/c with family ii helped pt to the car.
== END 2018-10-15 19:45 | disposition home or self-care (01) ==
LOC: EDUNIT# 14:54 → ER 14:59
DX: J44.1 Chronic obstructive pulmonary disease with (acute) exacerbation (principal); E78.00 Pure hypercholesterolemia, unspecified; I73.9 Peripheral vascular disease, unspecified; K21.9 Gastro-esophageal reflux disease without esophagitis; F41.9 Anxiety disorder, unspecified; E03.9 Hypothyroidism, unspecified; Z85.3 Personal history of malignant neoplasm of breast; Z85.72 Personal history of non-Hodgkin lymphomas; Z87.19 Personal history of other diseases of the digestive system; Z88.5 Allergy status to narcotic agent; Z99.81 Dependence on supplemental oxygen; Z79.52 Long term (current) use of systemic steroids; Z87.891 Personal history of nicotine dependence; Z90.49 Acquired absence of other specified parts of digestive tract; Z98.51 Tubal ligation status; Z98.890 Other specified postprocedural states
CPT/HCPCS: 36415; 71046; 80053; 83605; 83880; 85025; 87040; 93005; 93041; 94640; 94644; 96374; 96375

== ENCOUNTER 2019-01-15 13:38 | Inpatient (IN) | payer MEDICARE ==
[~2019-01-15] VITALS: Ht 157.5 cm; Wt 53.1 kg
[~2019-01-15 13:38] MED LIST changes: -D-ME118S7 PO; +PROM118S4 PO
[2019-01-15] MEDS ORDERED: RT-ALBUTEROL SULF 2.5 MG/3 ML PRE-MIX VIAL ONE (13:42)
[2019-01-15] MEDS ORDERED: RT-ALBUTEROL SULF 2.5 MG/3 ML PRE-MIX VIAL INH STA ×2 (13:48→16:21)
--- NOTE | 2019-01-15 13:49 | NUR ---
PLACED ON VAPORTHERM BY RT.
[2019-01-15 13:56] LABS: BASOPHILS % (AUTO) 0 % (0-10); EOSINOPHILS # (AUTO) 0.8 10^3/uL (0.0-0.3); EOSINOPHILS % (AUTO) 9 % (0-10); HEMATOCRIT 45 % (35-52); HEMOGLOBIN 14.4 G/DL (11.5-16.0); LYMPHOCYTES # (AUTO) 2.5 X 10^3 (1.0-4.0); LYMPHOCYTES % (AUTO) 26 % (12-44); MEAN CORPUSCULAR HEMOGLOBIN 28 PG (25-34); MEAN CORPUSCULAR HGB CONC 32 G/DL (32-36); MEAN CORPUSCULAR VOLUME 88 FL (80-99); MEAN PLATELET VOLUME 10.3 FL (7.4-10.4); MONOCYTES # (AUTO) 0.6 X 10^3 (0.0-1.0); MONOCYTES % (AUTO) 7 % (0-12); NEUTROPHILS # (AUTO) 5.4 X 10^3 (1.8-7.8); NEUTROPHILS % (AUTO) 58 % (42-75); PLATELET COUNT 266 10^3/uL (130-400); RED CELL DISTRIBUTION WIDTH 14.2 % (10.0-14.5); WHITE BLOOD COUNT 9.3 10^3/uL (4.3-11.0)
[2019-01-15 14:09] LABS: INR 0.9 (0.8-1.4); PROTHROMBIN TIME PATIENT 12.4 SEC (12.2-14.7)
[2019-01-15 14:11] LABS: ALANINE AMINOTRANSFERASE 14 U/L (0-55); ALBUMIN 4.1 GM/DL (3.2-4.5); ALKALINE PHOSPHATASE 106 U/L (40-136); BILIRUBIN,TOTAL 0.2 MG/DL (0.1-1.0); BUN/CREATININE RATIO 15; CALCIUM 9.2 MG/DL (8.5-10.1); CARBON DIOXIDE 30 MMOL/L (21-32); CHLORIDE 109 MMOL/L (98-107); CREATININE SERUM 0.62 MG/DL (0.60-1.30); GFR ESTIMATED > 60; GLUCOSE 121 MG/DL (70-105); POTASSIUM 3.8 MMOL/L (3.6-5.0); SODIUM 145 MMOL/L (135-145); TOTAL PROTEIN 6.7 GM/DL (6.4-8.2)
[2019-01-15 14:31] LABS: ABG BASE EXCESS 0.8 MMOL/L (-2.5-2.5); ABG OXYGEN SATURATION 95 % (94-100); ABG PCO2 44 MMHG (35-45); ABG PH 7.37 (7.37-7.43); ABG PO2 69 MMHG (79-93)
--- NOTE | 2019-01-15 14:32 | ED Respiratory ---
General Chief Complaint: Respiratory Problems Stated Complaint: SHORTNESS OF BREATH Nursing Triage Note: TO ED PER PER EMS WITH HOME WITH SOA FOR SEVERAL DAYS .DUONEB GOING ON ADMIT PER EMS. PATIENT REPORTS HAS BEEN SOA FOR SEVERAL DAYS. Source: patient Exam Limitations: no limitations History of Present Illness Date Seen by Provider: Jan 15, 2019 Time Seen by Provider: 13:42 Initial Comments Here with report of shortness of air over the last few days. Worsened today and much worse today at necessitating call for EMS. EMS did bring the patient here with DuoNeb in progress and 1 complete. They also gave her Solu-Medrol 125 mg IV. Patient admits to smoking. Denies fevers or chills. Has had multiple visits for COPD exacerbation. O2 sat 82% on 2 L per EMS. That has improved with the DuoNeb. Timing/Duration: getting worse, other (2-3 days) Severity: moderate, severe Prior Episodes/Possible Cause: occasional episodes Modifying Factors: Worse With Activity; Improves With Albuterol Nebulizer, Improves With Oxygen Associated Symptoms: chest pain/soreness (tightness), cough; No fever/chills; shortness of breath, wheezing Allergies and Home Medications Allergies Coded Allergies: oxycodone HCl (Verified Adverse Reaction, Severe, BLACK OUT, 12/04/11) morphine (Verified Adverse Reaction, Intermediate, Blackout, 10/11/16) Home Medications Albuterol Sulfate 8.5 Gm Hfa.aer.ad, 8.5 GM IH Q4H Prescribed by: CINDY ARGUELLO on 02/18/13 1022 Albuterol Sulfate 2.5 Mg/3 Ml Vial.neb, 2.5 MG INH Q4H PRN for WHEEZING Prescribed by: JOY HERNÁNDEZ on 07/24/18 1309 Ascorbic Acid 500 Mg Tablet, 500 MG PO DAILY, (Reported) Benzonatate 100 Mg Capsule, 1-2 TAB PO TID Prescribed by: DAWSON ALVARADO on 10/11/162121 Budesonide 90 Mcg Aer.pow.ba, 90 MCG IH BID Prescribed by: DAWSON ALVARADO on 10/11/162121 Budesonide/Formoterol Fumarate 1 Puff Puff, 2 PUFF IH RTBID Prescribed by: CINDY ARGUELLO on 02/18/13 1022 Calcium Carbonate/Vitamin D3 1 Each Tablet, 1 TAB PO DAILY, (Reported) Cholecalciferol (Vitamin D3) 400 Unit Capsule, 400 UNIT PO DAILY, (Reported) Cyanocobalamin 1,000 Mcg Tablet.sa, 250 MCG PO DAILY, (Reported) D-Methorphan Hb/Prometh HCl 118 Ml Syrup, 1-2 TSP PO Q4H Prescribed by: DAWSON ALVARADO on 10/11/162121 Guaifenesin 100 Mg/5 Ml Syrp, 200 MG PO QID PRN Prescribed by: CINDY ARGUELLO on 02/18/13 1022 Levothyroxine Sodium 75 Mcg Tablet, 75 MCG PO DAILY, (Reported) Lorazepam 1 Mg Tab, 1 MG PO BID PRN, (Reported) NEEDED FOR ANXIETY Nicotine 21 Mg Box, 21 MG TD DAILY Prescribed by: CINDY ARGUELLO on 02/18/13 1022 Prednisone 10 Mg Tab.ds.pk, 10 MG PO DAILY Take 6 tabs(60mg)daily,decrease by 1 tab(10MG)daily. Prescribed by: JAGDEEP HAYNES on 08/12/18 1259 Prednisone 20 Mg Tab, 40 MG PO DAILY Prescribed by: PAULIE GRACE on 10/15/18 1757 Simvastatin 40 Mg Tablet, 40 MG PO HS, (Reported) Tiotropium Eagle 18 Mcg Cap.w.dev, 0 INH IH DAILY@0800 Prescribed by: CINDY ARGUELLO on 02/18/13 1022 Venlafaxine Hcl 75 Mg Cap, 75 MG PO BID, (Reported) Vitamin E Acid Succinate 400 Unit Tablet, 400 UNIT PO DAILY, (Reported) Patient Home Medication List Home Medication List Reviewed: Yes Review of Systems Review of Systems Constitutional: see HPI; No chills, No fever EENTM: no symptoms reported Respiratory: no symptoms reported Cardiovascular: see HPI, chest pain; No edema, No palpitations Gastrointestinal: No abdominal pain, No nausea, No vomiting Genitourinary: no symptoms reported Musculoskeletal: No back pain; muscle pain Skin: no symptoms reported All Other Systems Reviewed Negative Unless Noted: Yes Past Oftuyse-Chbwqy-Gyqsis Hx Past Med/Social Hx: Reviewed Nursing Past Med/Soc Hx Patient Social History Alcohol Use: Denies Use Recreational Drug Use: No Smoking Status: Current Everyday Smoker Type Used: Cigarettes Former Smoker, Quit: Jul 17, 2018 2nd Hand Smoke Exposure: Yes Recent Foreign Travel: No Contact w/Someone Who Travel: No Recent Infectious Disease Expo: No Recent Hopitalizations: No Immunizations Up To Date Tetanus Booster (TDap): Less than 5yrs Date of Pneumonia Vaccine: Jan 14, 2012 Date of Influenza Vaccine: May 15, 2018 Seasonal Allergies Seasonal Allergies: No Past Medical History Surgeries: Yes (CARPAL TUNNEL, HAND SURGERY) Abdominal, Appendectomy, Breast, Orthopedic, Tubal Ligation Respiratory: Yes COPD Cardiac: Yes (carotid artery problem) High Cholesterol, Peripheral Vascular Neurological: No 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: 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 Sexually Transmitted Disease: No Genitourinary: No Gastrointestinal: Yes Gastroesophageal Reflux, Hiatal Hernia Musculoskeletal: Yes (athritis lower back) Degenerate Disk Disease, Arthritis, Chronic Back Pain Endocrine: Yes Hypothyroidsim HEENT: No Cancer: Yes Breast, Lymphoma Psychosocial: Yes Anxiety Integumentary: No Blood Disorders: No Family Medical History Reviewed Nursing Family Hx Physical Exam Vital Signs - First Documented 01/15/19 01/15/19 13:38 13:59 Temp 97.2 Pulse 92 Resp 28 B/P (MAP) 154/120 (131) Pulse Ox 97 O2 Delivery Nasal Cannula O2 Flow Rate 2.00 FiO2 40 Capillary Refill : Less Than 3 Seconds Height: 5'1.00" Weight: 117lbs. 0.0oz. [id number]; 22.3 BMI Method:Stated General Appearance: WD/WN, no apparent distress HEENT: PERRL/EOMI, pharynx normal Neck: full range of motion, supple Respiratory: accessory muscle use, wheezing, expiration (prolonged) Cardiovascular: no murmur, tachycardia Gastrointestinal: non tender, soft Extremities: non-tender, normal inspection Neurologic/Psychiatric: alert, oriented x 3 Skin: normal color, warm/dry Focused Exam Lactate Level 01/15/19 13:44: Lactic Acid Level 0.88 Lactic Acid Level Laboratory Tests Test 01/15/19 13:44 Lactic Acid Level 0.88 MMOL/L (0.50-2.00) Progress/Results/Core Measures Suspected Sepsis Recent Fever Within 48 Hours: No Infection Criteria Present: None New/Unexplained Altered Menta: No Sepsis Screen: No Definite Risk SIRS Temperature:97.2 Pulse: 92 Respiratory Rate: 28 Laboratory Tests 01/15/19 13:44: White Blood Count 9.3 Blood Pressure 154 /120 Mean: 131 01/15/19 13:44: Lactic Acid Level 0.88 Laboratory Tests 01/15/19 13:44: Creatinine 0.62, INR Comment 0.9, Platelet Count 266, Total Bilirubin 0.2 Results/Orders Lab Results Laboratory Tests Test 01/15/19 13:43 01/15/19 13:44 01/15/19 14:23 Range/Units Troponin I < 0.028 <0.028 NG/ML White Blood Count 9.3 4.3-11.0 10^3/uL Red Blood Count 5.13 4.35-5.85 10^6/uL Hemoglobin 14.4 11.5-16.0 G/DL Hematocrit 45 35-52 % Mean Corpuscular Volume 88 80-99 FL Mean Corpuscular Hemoglobin 28 25-34 PG Mean Corpuscular Hemoglobin Concent 32 32-36 G/DL Red Cell Distribution Width 14.2 10.0-14.5 % Platelet Count 266 130-400 10^3/uL Mean Platelet Volume 10.3 7.4-10.4 FL Neutrophils (%) (Auto) 58 42-75 % Lymphocytes (%) (Auto) 26 12-44 % Monocytes (%) (Auto) 7 0-12 % Eosinophils (%) (Auto) 9 0-10 % Basophils (%) (Auto) 0 0-10 % Neutrophils # (Auto) 5.4 1.8-7.8 X 10^3 Lymphocytes # (Auto) 2.5 1.0-4.0 X 10^3 Monocytes # (Auto) 0.6 0.0-1.0 X 10^3 Eosinophils # (Auto) 0.8 H 0.0-0.3 10^3/uL Basophils # (Auto) 0.0 0.0-0.1 10^3/uL Prothrombin Time 12.4 12.2-14.7 SEC INR Comment 0.9 0.8-1.4 Activated Partial Thromboplast Time 27 24-35 SEC Sodium Level 145 135-145 MMOL/L Potassium Level 3.8 3.6-5.0 MMOL/L Chloride Level 109 H 98-107 MMOL/L Carbon Dioxide Level 30 21-32 MMOL/L Anion Gap 6 5-14 MMOL/L Blood Urea Nitrogen 9 7-18 MG/DL Creatinine 0.62 0.60-1.30 MG/DL Estimat Glomerular Filtration Rate > 60 BUN/Creatinine Ratio 15 Glucose Level 121 H 70-105 MG/DL Lactic Acid Level 0.88 0.50-2.00 MMOL/L Calcium Level 9.2 8.5-10.1 MG/DL Corrected Calcium 9.1 8.5-10.1 MG/DL Total Bilirubin 0.2 0.1-1.0 MG/DL Aspartate Amino Transf (AST/SGOT) 16 5-34 U/L Alanine Aminotransferase (ALT/SGPT) 14 0-55 U/L Alkaline Phosphatase 106 40-136 U/L Total Protein 6.7 6.4-8.2 GM/DL Albumin 4.1 3.2-4.5 GM/DL Blood Gas Puncture Site RT BRACHIAL Blood Gas Patient Temperature 97.6 Arterial Blood pH 7.37 7.37-7.43 Arterial Blood Partial Pressure CO2 44 35-45 MMHG Arterial Blood Partial Pressure O2 69 L 79-93 MMHG Arterial Blood HCO3 26 23-27 MMOL/L Arterial Blood Total CO2 27.0 21.0-31.0 MMOL/L Arterial Blood Oxygen Saturation 95 94-100 % Arterial Blood Base Excess 0.8 -2.5-2.5 MMOL/L Robby Test YES-POS Blood Gas Ventilator Setting NO Blood Gas Inspired Oxygen 40L 25% My Orders Orders - JOY HERNÁNDEZ MD Cbc With Automated Diff (01/15/19 13:48) Comprehensive Metabolic Panel (01/15/19 13:48) Blood Culture (01/15/19 13:48) Sputum Culture (01/15/19 13:48) Urinalysis (01/15/19 13:48) Urine Culture (01/15/19 13:48) Protime With Inr (01/15/19 13:48) Partial Thromboplastin Time (01/15/19 13:48) Chest 1 View, Ap/Pa Only (01/15/19 13:48) Ed Iv/Invasive Line Start (01/15/19 13:48) Ekg Tracing (01/15/19 13:48) Vital Signs Adult Sepsis Patie Q15M (01/15/19 13:48) O2 (01/15/19 13:48) Remove Rings In Anticipation O (01/15/19 13:48) Lactic Acid Analyzer (01/15/19 13:48) Albuterol Pre-Mix Nebs (Rt) (Proventil (01/15/19 13:48) Svn Small Volume Nebulizer (01/15/19 13:48) Albuterol Pre-Mix Nebs (Rt) (Proventil (01/15/19 13:42) Arterial Blood Gas (01/15/19 14:23) Arterial Blood Draw (01/15/19 ) Troponin I (01/15/19 14:45) Medications Given in ED Current Medications Medications Dose Ordered Sig/Phani Route Start Time Stop Time Status Last Admin Dose Admin Albuterol Sulfate 2.5 mg STK-MED ONCE .ROUTE 01/15/19 13:42 01/15/19 13:49 DC 01/15/19 13:59 2.5 MG Vital Signs/I&O 01/15/19 01/15/19 01/15/19 13:38 13:59 14:07 Temp 97.2 Pulse 92 Resp 28 B/P (MAP) 154/120 (131) Pulse Ox 97 97 96 O2 Delivery Nasal Cannula Vapotherm Vapotherm O2 Flow Rate 2.00 40.00 40.00 FiO2 40 25 Capillary Refill : Less Than 3 Seconds Blood Pressure Mean: 131 Progress Note : Progress Note Seen and evaluated. IV by EMS. Labs, chest x-ray, EKG, blood cultures and lactic acid ordered. Albuterol neb 2 ordered. We will initiate they both are and titrate for O2 sat and subjective symptoms. Monitor patient. 1442 feeling much better on Vapotherm. Consider one-hour treatment potentially. We'll get an ABG now. Monitor patient. 1622: We were able to do albuterol neb repeat with Vapotherm and keep patient in reasonable position although still dyspneic and needs to be on Vapotherm. We will go ahead and admit the patient and continue aggressive RT therapy as well as steroid therapy IV. She was in agreement. I did discuss the case with Dr. Mario and she accepts patient for admission, inpatient status. I also discussed the case with Dr. Samson who agrees to see the patient in consult. Patient agrees to plan. ECG Initial ECG Impression Date: Jan 15, 2019 Initial ECG Impression Time: 14:14 Initial ECG Rate: 81 Initial ECG Rhythm: Normal Sinus Initial ECG Comparisson: Unchanged Comment Sinus rhythm with nonspecific T wave abnormalities. No evidence of ST elevation IA. Unchanged from previous. Interpreted by me. Diagnostic Imaging Diagonstic Imaging: Xray Plain Films/CT/US/NM/MRI: chest Comments [facility], [place] NAME: MICHAEL MARK [facility] REC#: [id number] PT STATUS: REG ER : 1955 PHYSICIAN: JOY HERNÁNDEZ MD ADMIT DATE: 01/15/19/ER Draft Date of Exam:01/15/19 CHEST 1 VIEW, AP/PA ONLY INDICATION: Shortness of air. TIME OF EXAM: 3:35 PM CORRELATION is made with prior chest radiograph from 10/15/2018. FINDINGS: The heart size is stable. The lungs appear hyperexpanded consistent with COPD. No infiltrates are identified. There is no effusion. No pneumothorax is identified. IMPRESSION: Stable emphysematous changes when compared with exam from 10/15/2018. Dictated on workstation # [id number] Dict: 01/15/19 1539 Trans: 01/15/19 1541 [facility] [id number] Interpreted by: ROXANA AGUILAR MD Electronically signed by: Departure Communication (Admissions) Time/Spoke to Admitting Phy: 16:22 Time/Spoke to Consulting Phy: 16:21 Impression Primary Impression: COPD with acute exacerbation Additional Impression: Hypoxia Disposition: ADMITTED INPATIENT Condition: Stable Admissions Decision to Admit Reason: Admit from ER (General) Decision to Admit/Date: Jan 15, 2019 Time/Decision to Admit Time: 16:21 Departure-Patient Inst. Referrals: [facility] (PCP) Primary Care Physician OUMOU DELGADO (Family) Primary Care Physician JOY HERNÁNDEZ MD Jan 15, 2019 14:32
[2019-01-15 14:33] LABS: ALLENS TEST YES-POS; INSPIRED O2 40L 25%; PATIENT TEMP 97.6; VENTILATOR NO
--- NOTE | 2019-01-15 14:50 | NUR ---
PATIENT REPORTS BREATHING EASIER RESTING EYE'S CLOSED
--- NOTE | 2019-01-15 15:42 | Diagnostic Imaging Report ---
INDICATION: Shortness of air. TIME OF EXAM: 3:35 PM CORRELATION is made with prior chest radiograph from 10/15/2018. FINDINGS: The heart size is stable. The lungs appear hyperexpanded consistent with COPD. No infiltrates are identified. There is no effusion. No pneumothorax is identified. IMPRESSION: Stable emphysematous changes when compared with exam from 10/15/2018. Dictated by: Dictated on workstation # [id number]
--- NOTE | 2019-01-15 16:46 | NUR ---
RT CALLED TO HELP MOVE PATIENT SINCE SHE IN ON VARPOTHERM
--- NOTE | 2019-01-15 16:55 | NUR ---
RT HERE TO TRANSFER PATIENT.
--- NOTE | 2019-01-15 17:00 | NUR ---
MICHAEL MARK admitted to room 420-1, with an admitting diagnosis of COPD ACUTE EXACERBATION, on 01/15/19 from ED via STRETCHER, accompanied by STAFF AND SISTER. MICHAEL MARK introduced to surroundings, call light, bed controls, phone, TV, temperature control, lights, meal times, smoking policy, visitor policy, side rail policy, bathrooms and showers. Patient Rights given to patient in the handbook. MICHAEL MARK verbalizes understanding that [facility] is not responsible for the loss or damage to any personal effects or valuables that are kept in the patients posession during their hospitalization. MICHAEL MARK verbalizes understanding of Interdisciplinary Patient Education. Patient and/or family were informed about the Rapid Response Team and its purpose.
[2019-01-15] MEDS ORDERED: CATHETER FLUSH 10 ML SYR IV PRN (17:15)
[2019-01-15] MEDS: methylPREDNISolone 40 MG/ML (Solu-MEDROL) VIAL IV SCH (17:35)
[2019-01-15] MEDS: NS IV 1000 ML 1,000 ML IV SCH (17:39)
[2019-01-15 17:52] VITALS: BP 155/93
[2019-01-15] MEDS: RT-BUDESONIDE NEBS 0.5 MG/2ML (PULMICORT) AMP INH SCH (18:20)
[2019-01-15] MEDS: RT-ALBUTEROL/IPRATROPIUM 3 ML (DUONEB) VIAL INH SCH ×3 (18:20→22:00)
[2019-01-15 20:00] VITALS: BP 145/84
[2019-01-15 23:47] VITALS: BP 94/70
[2019-01-16] MEDS: RT-ALBUTEROL/IPRATROPIUM 3 ML (DUONEB) VIAL INH SCH ×10 (00:26→22:22)
[2019-01-16] MEDS: methylPREDNISolone 40 MG/ML (Solu-MEDROL) VIAL IV SCH ×4 (01:09→17:49)
[2019-01-16 04:18] VITALS: BP 106/64
[2019-01-16 05:17] LABS: BASOPHILS % (AUTO) 0 % (0-10); EOSINOPHILS % (AUTO) 0 % (0-10); HEMATOCRIT 44 % (35-52); HEMOGLOBIN 13.3 G/DL (11.5-16.0); LYMPHOCYTES # (AUTO) 0.7 X 10^3 (1.0-4.0); LYMPHOCYTES % (AUTO) 10 % (12-44); MEAN CORPUSCULAR HEMOGLOBIN 27 PG (25-34); MEAN CORPUSCULAR HGB CONC 30 G/DL (32-36); MEAN CORPUSCULAR VOLUME 88 FL (80-99); MEAN PLATELET VOLUME 10.6 FL (7.4-10.4); MONOCYTES # (AUTO) 0.1 X 10^3 (0.0-1.0); MONOCYTES % (AUTO) 2 % (0-12); NEUTROPHILS # (AUTO) 5.9 X 10^3 (1.8-7.8); NEUTROPHILS % (AUTO) 88 % (42-75); PLATELET COUNT 261 10^3/uL (130-400); WHITE BLOOD COUNT 6.7 10^3/uL (4.3-11.0)
[2019-01-16 05:41] LABS: ALANINE AMINOTRANSFERASE 13 U/L (0-55); ALBUMIN 3.8 GM/DL (3.2-4.5); ALKALINE PHOSPHATASE 99 U/L (40-136); BILIRUBIN,TOTAL 0.2 MG/DL (0.1-1.0); BUN/CREATININE RATIO 22; CALCIUM 9.3 MG/DL (8.5-10.1); CARBON DIOXIDE 21 MMOL/L (21-32); CHLORIDE 111 MMOL/L (98-107); CREATININE SERUM 0.67 MG/DL (0.60-1.30); GFR ESTIMATED > 60; GLUCOSE 135 MG/DL (70-105); POTASSIUM 4.1 MMOL/L (3.6-5.0); SODIUM 144 MMOL/L (135-145); TOTAL PROTEIN 6.4 GM/DL (6.4-8.2)
[2019-01-16] MEDS: RT-BUDESONIDE NEBS 0.5 MG/2ML (PULMICORT) AMP INH SCH ×2 (06:26→18:13)
[2019-01-16 06:27] LABS: LYMPHOCYTES % (MANUAL) 9 %; MONOCYTES % (MANUAL) 3 %; NEUTROPHILS % (MANUAL) 88 %
[2019-01-16 08:00] VITALS: BP 104/64
[2019-01-16] MEDS ORDERED: ALBU18HF2 INH (08:51)
[2019-01-16] MEDS ORDERED: FLUT1BLS3 INH (08:51)
[2019-01-16] MEDS ORDERED: ALBU2.5V4 NEB (08:55)
--- NOTE | 2019-01-16 08:55 | NUR ---
SPOKE WITH THE PATIENT ABOUT HER MEDICATIONS. SHE STATES SHE NO LONGER TAKES ANY ORAL OR OTC MEDICATIONS. THE ONLY THING SHE HAS BEEN USING IS HER ALBUTEROL NEBULIZER SOLUTION AND THE ALBUTEROL AND TRELEGY INHALERS.
--- NOTE | 2019-01-16 10:16 | Pulmonary Consultation ---
JAVID THACKER,MED STUDENT 01/16/19 1016: History of Present Illness History of Present Illness Date of Consultation 01/16/19 10:09 Time Seen by Provider: 07:20 Date of Admission History of Present Illness Patient is a 63 y/o female that present to the ED yesterday with s hortness of air over the last few days. Patient says that she has COPD and was in the hospital in early this year for a similar episode. Patient says that she has and albuterola nd trilage inhalation that are taking them Rx. She denies headache, nausea, vomiting, dizziness, stomach ache, numbness, tingling. Admits to SOB, productive cough, chest pain. Allergies and Home Medications Allergies Coded Allergies: oxycodone HCl (Verified Adverse Reaction, Severe, BLACK OUT, 01/15/19) morphine (Verified Adverse Reaction, Intermediate, Blackout, 01/15/19) Home Medications Albuterol Sulfate 18 Gm Hfa.aer.ad, 2 PUFF INH Q4H PRN for SHORTNESS OF BREATH, (Reported) Albuterol Sulfate 2.5 Mg/3 Ml Vial.neb, 2.5 MG NEB Q4H PRN for SHORTNESS OF BREATH, (Reported) Fluticasone/Umeclidin/Vilanter 1 Each Blst.w.dev, 1 PUFF INH DAILY, (Reported) Prednisone 10 Mg Tab, 0 PO UD Take 6 tabs(60mg)daily, decrease by 1 tab(10mg) every other day. Prescribed by: NIKKO MOCTEZUMA on 01/18/19 1331 Varenicline Tartrate 0.5 Mg Tablet, 0.5 MG PO UD 1 tab daily x 3 days, then 1 tab daily x 4 days, then 2 tabs twice daily. Prescribed by: NIKKO MOCTEZUMA on 01/18/19 1331 Past Onbcrve-Ysoydk-Wqslly Hx Past Med/Social Hx: Reviewed Nursing Past Med/Soc Hx Patient Social History Alcohol Use: Denies Use Recreational Drug Use: No Smoking Status: Current Everyday Smoker Type Used: Cigarettes Former Smoker, Quit: Jul 17, 2018 2nd Hand Smoke Exposure: Yes Recent Foreign Travel: No Contact w/Someone Who Travel: Yes (Daughter, two weeks ago) Recent Infectious Disease Expo: No Recent Hopitalizations: No Immunizations Up To Date Tetanus Booster (TDap): Less than 5yrs Date of Pneumonia Vaccine: Jan 14, 2012 Date of Influenza Vaccine: May 15, 2018 Seasonal Allergies Seasonal Allergies: No Past Medical History Surgeries: Yes (CARPAL TUNNEL, HAND SURGERY) Abdominal, Appendectomy, Breast, Orthopedic, Tubal Ligation Respiratory: Yes COPD Cardiac: Yes (carotid artery problem) High Cholesterol, Peripheral Vascular Neurological: No 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: 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 Sexually Transmitted Disease: No Genitourinary: No Gastrointestinal: Yes Gastroesophageal Reflux, Hiatal Hernia Musculoskeletal: Yes (athritis lower back) Degenerate Disk Disease, Arthritis, Chronic Back Pain Endocrine: Yes Hypothyroidsim HEENT: No Cancer: Yes Breast, Lymphoma Psychosocial: Yes Anxiety Integumentary: No Blood Disorders: No Family Medical History Reviewed Nursing Family Hx Review of Systems Constitutional: No: Fever, Chills Respiratory: Cough, Shortness of breath, SOB with excertion, Wheezing, Sputum Cardiovascular: Chest Pain; No: Edema Gastrointestinal: No: Nausea, Vomiting, Abdominal Pain Neurological: No: Numbness Sepsis Event Evaluation Height, Weight, BMI Height: 5'2.00" Weight: 117lbs. 0.0oz. 53.319953cn; 22.3 BMI Method:Stated Exam Exam Vital Signs Date Time Temp Pulse Resp B/P (MAP) Pulse Ox O2 Delivery O2 Flow Rate FiO2 01/16/19 08:04 96 Vapotherm 25.00 35 01/16/19 07:00 112 01/16/19 06:33 94 Vapotherm 25.00 35 01/16/19 06:25 96 Vapotherm 33.00 35 01/16/19 04:18 97.1 114 20 106/64 (78) 95 Vapotherm 25.00 33.00 01/16/19 04:05 95 Vapotherm 33.00 35 01/16/19 02:51 90 Vapotherm 33.00 30 01/16/19 01:00 99 01/16/19 00:26 92 Vapotherm 35.00 30 01/15/19 23:47 98.2 104 24 94/70 (78) 95 Vapotherm 25.00 35.00 01/15/19 22:01 91 Vapotherm 39.00 30 01/15/19 20:11 92 Vapotherm 40.00 30 01/15/19 20:00 99.0 110 16 145/84 (104) 97 Vapotherm 25.00 40.00 01/15/19 20:00 91 Vapotherm 39.00 01/15/19 19:00 99 01/15/19 18:26 94 Vapotherm 40.00 30 01/15/19 18:20 92 Vapotherm 40.00 30 01/15/19 18:09 90 01/15/19 17:52 98.6 94 16 155/93 97 Vapotherm 40.00 25.00 01/15/19 17:00 Vapotherm 40.00 25 01/15/19 16:42 86 18 169/85 (113) 94 Vapotherm 01/15/19 16:26 95 Vapotherm 40.00 25 01/15/19 16:26 109 95 01/15/19 14:07 96 Vapotherm 40.00 25 01/15/19 13:59 97 Vapotherm 40.00 40 01/15/19 13:38 97.2 92 28 154/120 (131) 97 Nasal Cannula 2.00 I & O 01/16/19 07:00 Intake Total 760 ml Output Total 400 ml Balance 360 ml Height & Weight Height: 5'2.00" Weight: 117lbs. 0.0oz. 53.258535rc; 22.3 BMI Method:Stated General Appearance: No Apparent Distress, WD/WN Respiratory: Chest Non Tender, No Accessory Muscle Use, No Respiratory Distress, Wheezing Cardiovascular: Regular Rate, Rhythm, No Edema, No Gallop, No Murmur, Normal P eripheral Pulses Capillary Refill: Less Than 3 Seconds Peripheral Pulses: 2+ Dorsalis Pedis (R), 2+ Left Dors-Pedis (L), 2+ Radial Pulses (R), 2+ Radial Pulses (L) Gastrointestinal: non tender, soft Extremity: Non Tender, No Calf Tenderness, No Pedal Edema Neurologic/Psychiatric: Alert, Oriented x3, No Motor/Sensory Deficits, Normal Mood/Affect Skin: Normal Color, Warm/Dry Results Lab Laboratory Tests 01/15/19 13:44 01/16/19 04:35 Assessment/Plan Assessment/Plan AECOPD - breathing treatment - Vapotherm @ a flow rate of 25 and FiO2 of 35 - IS - CXR - showed emphysematous changes when compared to prior imaging Atelectasis - IS FENGIPPx - per hospitalist JO SAMSON DO 01/16/19 1443: History of Present Illness History of Present Illness Time Seen by Provider: 14:38 History of Present Illness 63yo iwth hx of COPD presented to ED seocndary to worsening SOB, productive cough, wheezing. She has had prior episodes requiring hospitalizations. Allergies and Home Medications Allergies Coded Allergies: oxycodone HCl (Verified Adverse Reaction, Severe, BLACK OUT, 01/15/19) morphine (Verified Adverse Reaction, Intermediate, Blackout, 01/15/19) Home Medications Albuterol Sulfate 18 Gm Hfa.aer.ad, 2 PUFF INH Q4H PRN for SHORTNESS OF BREATH, (Reported) Albuterol Sulfate 2.5 Mg/3 Ml Vial.neb, 2.5 MG NEB Q4H PRN for SHORTNESS OF BREATH, (Reported) Fluticasone/Umeclidin/Vilanter 1 Each Blst.w.dev, 1 PUFF INH DAILY, (Reported) Prednisone 10 Mg Tab, 0 PO UD Take 6 tabs(60mg)daily, decrease by 1 tab(10mg) every other day. Prescribed by: NIKKO MOCTEZUMA on 01/18/19 1331 Varenicline Tartrate 0.5 Mg Tablet, 0.5 MG PO UD 1 tab daily x 3 days, then 1 tab daily x 4 days, then 2 tabs twice daily. Prescribed by: NIKKO MOCTEZUMA on 01/18/19 1331 Review of Systems Time Seen by Provider: 14:39 Constitutional: No: Fever, Chills Respiratory: Cough, Shortness of breath, SOB with excertion, Wheezing, Sputum Cardiovascular: Chest Pain; No: Edema Gastrointestinal: No: Nausea, Vomiting, Abdominal Pain Neurological: No: Numbness Exam Exam General Appearance: No Apparent Distress, WD/WN Respiratory: Chest Non Tender, No Accessory Muscle Use, No Respiratory Distress, Wheezing Gastrointestinal: non tender, soft Extremity: No Pedal Edema Neurologic/Psychiatric: Alert, Oriented x3, No Motor/Sensory Deficits, Normal Mood/Affect Skin: Normal Color, Warm/Dry Assessment/Plan Assessment/Plan AECOPD - SVNs Q 4 - CXR - showed emphysematous changes when compared to prior imaging Atelectasis - IS Supervisory-Addendum Brief Verification & Attestation Participated in pt care: history Personally performed: exam, history Care discussed with: Medical Student Procedures: n/a Verification and Attestation of Medical Student E/M Service A medical student performed and documented this service in my presence. I reviewed and verified all information documented by the medical student and made modifications to such information, when appropriate. I personally performed the physical exam and medical decision making. Jo Samson, Jan 22, 2019,07:08 JAVID THACKER,MED STUDENT Jan 16, 2019 10:16 JO SAMSON DO Jan 16, 2019 14:43
[2019-01-16 12:00] VITALS: BP 111/68
[2019-01-16] MEDS: ENOXAPARIN 40 MG/0.4 ML (LOVENOX) SYR SC SCH (12:25)
[2019-01-16 12:45] VITALS: BP 104/64
--- NOTE | 2019-01-16 12:46 | History & Physical ---
RAMIRO MORRIS,MED STUDENT 01/16/19 1246: HPI History of Present Illness: 63 year old female presented to the Emergency Department 01/15 with complaint of shortness of breath. The symptoms began 2 days prior and had continued to worsen. She had similar symptoms previously in August when she was admitted to the hospital and diagnosed with COPD. She has since been using albuterol via inhaler and nebulizer as well as a trelegy inhaler. She notes some cough, chest pain, and weakness with her shortness of breath. She denies any tachycardia, palpations, fevers, or recent illnesses. She is currently smoking 1/2 pack of cigarettes per day. She has tried Chantix several years ago for smoking cessation that she stated worked with some benefit. She voiced a desire to possible try Chantix again upon discharge. She states she is typically on home O2 at 2L Source: patient Exam Limitations: no limitations Date seen by provider: Jan 16, 2019 Time Seen by Provider: 10:40 Attending Physician Nikko Mario MD [facility] [place] Consult Date of Admission Jan 15, 2019 at 16:20 Home Medications Home Medications Reviewed patient Home Medication Reconciliation performed by pharmacy medication reconciliations body art technician and/or nursing. Patients Allergies have been reviewed. Allergies Coded Allergies: oxycodone HCl (Verified Adverse Reaction, Severe, BLACK OUT, 01/15/19) morphine (Verified Adverse Reaction, Intermediate, Blackout, 01/15/19) [id number] Hx Patient Social History Alcohol Use: Denies Use Recreational Drug Use: No Smoking Status: Current Everyday Smoker Type Used: Cigarettes (1/2 pack per day) 2nd Hand Smoke Exposure: Yes Recent Foreign Travel: No Contact w/other who traveled: Yes (Daughter, two weeks ago) Recent Hopitalizations: No Recent Infectious Disease Expo: No Immunizations Up To Date Tetanus Booster (TDap): Less than 5yrs Date of Pneumonia Vaccine: Jan 14, 2012 Date of Influenza Vaccine: May 15, 2018 Past Medical History 1. COPD 2. tobbaco dependence 3. degenerative disc disease of the lumbar spine 4. osteoarthritis of the hips/hands 5. chronic pain on narcotics 6. hx of breast cancer diagnosed 2004 s/p left lumpectomy 7. hx of Non-Hodgkins lymphoma diagnosed 2004 s/p chemo/radiation -negative PET scan as of 11/2008. -followed by Dr Houston 8. hyperlipidemia 9. anxiety 10. hypothyroidism 11. osteoporosis Past surgical history: 1. left breast lumpectomy 2004 2. appendectomy 3. rotator cuff surgery 2009 4. carpal tunnel surgery 5. tubal ligation 6. hiatal hernia repair Review of Systems (CHC) Constitutional: No chills, No fever; weakness EENTM: No nose congestion, No throat pain Respiratory: cough, short of breath Cardiovascular: chest pain; No edema, No palpitations Gastrointestinal: No abdominal pain, No constipation, No nausea, No vomiting Musculoskeletal: back pain (chronic) Skin: No rash Reviewed Test Results Reviewed Test Results Lab Laboratory Tests 01/15/19 13:43: Troponin I < 0.028 01/15/19 13:44: White Blood Count 9.3, Red Blood Count 5.13, Hemoglobin 14.4, Hematocrit 45, Mean Corpuscular Volume 88, Mean Corpuscular Hemoglobin 28, Mean Corpuscular Hemoglobin Concent 32, Red Cell Distribution Width 14.2, Platelet Count 266, Mean Platelet Volume 10.3, Neutrophils (%) (Auto) 58, Lymphocytes (%) (Auto) 26, Monocytes (%) (Auto) 7, Eosinophils (%) (Auto) 9, Basophils (%) (Auto) 0, Neutrophils # (Auto) 5.4, Lymphocytes # (Auto) 2.5, Monocytes # (Auto) 0.6, Eosinophils # (Auto) 0.8H, Basophils # (Auto) 0.0, Prothrombin Time 12.4, INR Comment 0.9, Activated Partial Thromboplast Time 27, Sodium Level 145, Potassium Level 3.8, Chloride Level 109H, Carbon Dioxide Level 30, Anion Gap 6, Blood Urea Nitrogen 9, Creatinine 0.62, Estimat Glomerular Filtration Rate > 60, BUN/Creatinine Ratio 15, Glucose Level 121H, Lactic Acid Level 0.88, Calcium Level 9.2, Corrected Calcium 9.1, Total Bilirubin 0.2, Aspartate Amino Transf (AST/SGOT) 16, Alanine Aminotransferase (ALT/SGPT) 14, Alkaline Phosphatase 106, Total Protein 6.7, Albumin 4.1 01/15/19 14:23: Blood Gas Puncture Site RT BRACHIAL, Blood Gas Patient Temperature 97.6, Arterial Blood pH 7.37, Arterial Blood Partial Pressure CO2 44, Arterial Blood Partial Pressure O2 69L, Arterial Blood HCO3 26, Arterial Blood Total CO2 27.0, Arterial Blood Oxygen Saturation 95, Arterial Blood Base Excess 0.8, Robby Test YES-POS, Blood Gas Ventilator Setting NO, Blood Gas Inspired Oxygen 40L 25% 01/16/19 04:35: White Blood Count 6.7, Red Blood Count 5.02, Hemoglobin 13.3, Hematocrit 44, Mean Corpuscular Volume 88, Mean Corpuscular Hemoglobin 27, Mean Corpuscular Hemoglobin Concent 30L, Red Cell Distribution Width 14.0, Platelet Count 261, Mean Platelet Volume 10.6H, Neutrophils (%) (Auto) 88H, Lymphocytes (%) (Auto) 10L, Monocytes (%) (Auto) 2, Eosinophils (%) (Auto) 0, Basophils (%) (Auto) 0, Neutrophils # (Auto) 5.9, Lymphocytes # (Auto) 0.7L, Monocytes # (Auto) 0.1, Eosinophils # (Auto) 0.0, Basophils # (Auto) 0.0, Sodium Level 144, Potassium Level 4.1, Chloride Level 111H, Carbon Dioxide Level 21, Anion Gap 12, Blood Urea Nitrogen 15, Creatinine 0.67, Estimat Glomerular Filtration Rate > 60, B UN/Creatinine Ratio 22, Glucose Level 135H, Calcium Level 9.3, Corrected Calcium 9.5, Total Bilirubin 0.2, Aspartate Amino Transf (AST/SGOT) 16, Alanine Aminotransferase (ALT/SGPT) 13, Alkaline Phosphatase 99, Total Protein 6.4, Albumin 3.8, Neutrophils % (Manual) 88, Lymphocytes % (Manual) 9, Monocytes % (Manual) 3 Radiology CXR: Stable emphysematous changes when compared with exam from 10/15/2018. EKG: Sinus rhythm with nonspecific T wave abnormalities. Unchanged from previous Physical Exam-([facility]) Physical Exam Vital Signs VS - Last 72 Hours, by Label 01/15/19 01/15/19 01/15/19 01/15/19 13:38 13:59 14:07 16:26 Temp 97.2 Pulse 92 109 Resp 28 B/P (MAP) 154/120 (131) Pulse Ox 97 97 96 95 O2 Delivery Nasal Cannula Vapotherm Vapotherm O2 Flow Rate 2.00 40.00 40.00 FiO2 40 25 01/15/19 01/15/19 01/15/19 01/15/19 16:26 16:42 17:00 17:52 Temp 98.6 Pulse 86 94 Resp 18 16 B/P (MAP) 169/85 (113) 155/93 Pulse Ox 95 94 97 O2 Delivery Vapotherm Vapotherm Vapotherm Vapotherm O2 Flow Rate 40.00 40.00 40.00 25.00 FiO2 25 25 01/15/19 01/15/19 01/15/19 01/15/19 18:09 18:20 18:26 19:00 Pulse 90 99 Pulse Ox 92 94 O2 Delivery Vapotherm Vapotherm O2 Flow Rate 40.00 40.00 FiO2 30 30 01/15/19 01/15/19 01/15/19 01/15/19 20:00 20:00 20:11 22:01 Temp 99.0 Pulse 110 Resp 16 B/P (MAP) 145/84 (104) Pulse Ox 91 97 92 91 O2 Delivery Vapotherm Vapotherm Vapotherm Vapotherm O2 Flow Rate 39.00 25.00 40.00 39.00 40.00 FiO2 30 30 01/15/19 01/16/19 01/16/19 01/16/19 23:47 00:26 01:00 02:51 Temp 98.2 Pulse 104 99 Resp 24 B/P (MAP) 94/70 (78) Pulse Ox 95 92 90 O2 Delivery Vapotherm Vapotherm Vapotherm O2 Flow Rate 25.00 35.00 33.00 35.00 FiO2 30 30 01/16/19 01/16/19 01/16/19 01/16/19 04:05 04:18 06:25 06:33 Temp 97.1 Pulse 114 Resp 20 B/P (MAP) 106/64 (78) Pulse Ox 95 95 96 94 O2 Delivery Vapotherm Vapotherm Vapotherm Vapotherm O2 Flow Rate 33.00 25.00 33.00 25.00 33.00 FiO2 35 35 35 01/16/19 01/16/19 01/16/19 01/16/19 07:00 08:00 08:04 10:58 Temp 98.4 Pulse 112 109 Resp 20 B/P (MAP) 104/64 (77) Pulse Ox 96 96 98 O2 Delivery Vapotherm Vapotherm High Flow N/C O2 Flow Rate 25.00 25.00 10.00 33.00 FiO2 35 01/16/19 01/16/19 12:45 12:45 Pulse 109 Pulse Ox 98 98 O2 Delivery High Flow N/C O2 Flow Rate 10.00 Capillary Refill : Less Than 3 Seconds General Appearance: WD/WN, no apparent distress Neck: full range of motion, supple Respiratory: chest non-tender, no respiratory distress, no accessory muscle use, wheezing (end expiration) Cardiovascular: regular rate, rhythm, no edema, no murmur Gastrointestinal: normal bowel sounds, non tender, soft; No distended Neurologic/Psychiatric: alert, normal mood/affect, oriented x 3 Skin: normal color, warm/dry Assessment/Plan Assessment/Plan Assessment & Plan 63 yo female with Acute COPD Exacerbation. continue inhaled and IV steroids as well as albuterol treatments. Discussed importance of smoking cessation, she voiced a desire to retry Chantix with discharge. Will monitor O2 levels and try to get to home levels (2L) Clinical Quality Measures DVT/VTE Risk/Contraindication: Risk Factor Score Per Nursin RFS Level Per Nursing on Admit: 4+=Very High NIKKO MARIO MD 01/16/191953: Home Medications Allergies Coded Allergies: oxycodone HCl (Verified Adverse Reaction, Severe, BLACK OUT, 01/15/19) morphine (Verified Adverse Reaction, Intermediate, Blackout, 01/15/19) Assessment/Plan Assessment/Plan Admission Status: Inpatient Order (span 2 midnights) Reason for Inpatient Admission: COPD exacerbation requiring IV steroids and Vapotherm with high O2 requirement, anticipate at least 2 nights for recovery. (1) COPD with acute exacerbation Status: Acute Assessment & Plan: No evidence of infection. IV solumedrol, respiratory support- weaning FiO2 this am, but still at 35%. Duonebs, budesonide. Encouraged smoking cessation, will start Chantix on d/c if desired. (2) DVT prophylaxis Status: Acute Assessment & Plan: Enoxaparin Supervisory-Addendum Brief Verification & Attestation Participated in pt care: history, MDM, physical Personally performed: exam, history, MDM Care discussed with: Medical Student Procedures: n/a Verification and Attestation of Medical Student E/M Service A medical student performed and documented this service in my presence. I reviewed and verified all information documented by the medical student and made modifications to such information, when appropriate. I personally performed the physical exam and medical decision making. See problem list for my assessment and plan. Nikko Mario, Jan 16, 2019,19:54 RAMIRO MORRIS,MED STUDENT Jan 16, 2019 12:46 NIKKO MARIO MD Jan 16, 2019 19:54
[2019-01-16] MEDS ORDERED: RT-ALBUTEROL/IPRATROPIUM 3 ML (DUONEB) VIAL INH PRN (13:00)
[2019-01-16 16:00] VITALS: BP 114/70
[2019-01-16] MEDS: NS IV 1000 ML 1,000 ML IV SCH ×2 (17:18→17:49)
[2019-01-16 20:00] VITALS: BP 129/81
[2019-01-17] VITALS: BP 126/76
[2019-01-17] MEDS: methylPREDNISolone 40 MG/ML (Solu-MEDROL) VIAL IV SCH ×4 (00:14→17:19)
[2019-01-17] MEDS: RT-ALBUTEROL/IPRATROPIUM 3 ML (DUONEB) VIAL INH SCH ×6 (03:13→22:25)
[2019-01-17 04:00] VITALS: BP 119/73
[2019-01-17 05:54] LABS: BUN/CREATININE RATIO 27; CARBON DIOXIDE 23 MMOL/L (21-32); CHLORIDE 111 MMOL/L (98-107); CREATININE SERUM 0.63 MG/DL (0.60-1.30); GFR ESTIMATED > 60; GLUCOSE 115 MG/DL (70-105); POTASSIUM 4.6 MMOL/L (3.6-5.0); SODIUM 144 MMOL/L (135-145)
[2019-01-17] MEDS: RT-BUDESONIDE NEBS 0.5 MG/2ML (PULMICORT) AMP INH SCH ×2 (06:26→22:25)
--- NOTE | 2019-01-17 06:54 | Pulmonary Progress Note ---
JAVID THACKER,MED STUDENT 01/17/19 0653: Subjective Date Seen by a Provider: Jan 17, 2019 Time Seen by a Provider: 06:20 Subjective/Events-last exam Patient says that she is feeling better and is still strongly wanting to quit smoking. She denies fever, chills, headache, nausea, vomiting, stomach pain, chest pain and SOB. She admits to non-productive cough, headache and light headedness with activity. Sepsis Event Evaluation Height, Weight, BMI Height: 5'2.00" Weight: 117lbs. 0.0oz. 53.605002cu; 22.3 BMI Method:Stated Focused Exam Lactate Level 01/15/19 13:44: Lactic Acid Level 0.88 Exam Exam Vital Signs Date Time Temp Pulse Resp B/P (MAP) Pulse Ox O2 Delivery O2 Flow Rate FiO2 01/17/19 06:26 93 High Flow N/C 2.00 01/17/19 04:00 97.8 86 18 119/73 (88) 97 High Flow N/C 3.00 01/17/19 03:13 96 High Flow N/C 2.00 01/17/19 01:00 102 01/17/19 00:00 90 17 126/76 (93) 96 High Flow N/C 3.00 01/16/19 22:22 99 High Flow N/C 3.00 01/16/19 20:00 Nasal Cannula 6.00 01/16/19 20:00 98.4 113 20 129/81 (97) 100 High Flow N/C 3.00 01/16/19 19:00 119 01/16/19 18:19 95 High Flow N/C 3.00 01/16/19 18:14 95 High Flow N/C 3.00 01/16/19 16:00 98.8 109 20 114/70 (85) 97 High Flow N/C 01/16/19 15:21 98 Nasal Cannula 6.00 01/16/19 13:00 118 01/16/19 12:45 109 98 01/16/19 12:45 98 High Flow N/C 10.00 01/16/19 12:00 99.0 108 20 111/68 (82) 100 Vapotherm 25.00 33.00 01/16/19 10:58 98 High Flow N/C 10.00 01/16/19 08:04 96 Vapotherm 25.00 35 01/16/19 08:00 98.4 109 20 104/64 (77) 96 Vapotherm 25.00 33.00 01/16/19 08:00 Vapotherm 15.00 01/16/19 07:00 112 I & O 01/17/19 07:00 Intake Total 1060 ml Output Total 950 ml Balance 110 ml Height & Weight Height: 5'2.00" Weight: 117lbs. 0.0oz. 53.918619qh; 22.3 BMI Method:Stated General Appearance: No Apparent Distress, WD/WN Respiratory: Chest Non Tender, Lungs Clear, No Accessory Muscle Use, No Respiratory Distress, Wheezing Cardiovascular: Regular Rate, Rhythm, No Edema, No Gallop, No Murmur, Normal Peripheral Pulses Capillary Refill: Less Than 3 Seconds Peripheral Pulses: 2+ Dorsalis Pedis (R), 2+ Left Dors-Pedis (L), 2+ Radial Pulses (R), 2+ Radial Pulses (L) Gastrointestinal: normal bowel sounds, non tender, soft; No distended Extremity: Non Tender, No Calf Tenderness, No Pedal Edema Neurologic/Psychiatric: Alert, Oriented x3, No Motor/Sensory Deficits, Normal Mood/Affect Skin: Normal Color, Warm/Dry Results Lab Laboratory Tests 01/15/19 13:44 01/16/19 04:35 01/17/19 04:31 Assessment/Plan Assessment/Plan AECOPD - resolved - continue Breathing tx - reinforce smoking cessation - 6 minute walk test - consider JO Venegas DO 01/17/19 0906: Subjective Time Seen by a Provider: 09:05 Subjective/Events-last exam Pt still c/o SOB, coughing, and wheezing. Exam Exam General Appearance: No Apparent Distress, WD/WN Respiratory: Chest Non Tender, Lungs Clear, No Accessory Muscle Use, No Respiratory Distress Cardiovascular: Regular Rate, Rhythm, No Edema, No Gallop, No Murmur, Normal Peripheral Pulses Capillary Refill: Less Than 3 Seconds Gastrointestinal: normal bowel sounds, non tender, soft Extremity: Non Tender, No Calf Tenderness Neurologic/Psychiatric: Alert, Oriented x3, No Motor/Sensory Deficits, Normal Mood/Affect Skin: Normal Color, Warm/Dry Assessment/Plan Assessment/Plan AECOPD - SVNs Q 4 - CXR - showed emphysematous changes when compared to prior imaging -Continue Solumedrol 40 IV Q 6 Atelectasis - IS Supervisory-Addendum Brief Verification & Attestation Participated in pt care: history, physical Personally performed: exam Care discussed with: Medical Student Procedures: n/a Verification and Attestation of Medical Student E/M Service A medical student performed and documented this service in my presence. I reviewed and verified all information documented by the medical student and made modifications to such information, when appropriate. I personally performed the physical exam and medical decision making. Jo Samson, Jan 17, 2019,09:07 JAVID THACKER,MED STUDENT Jan 17, 2019 06:53 JO SAMSON DO Jan 17, 2019 09:06
[2019-01-17 08:10] VITALS: BP 157/79
--- NOTE | 2019-01-17 11:13 | Progress Note ---
RAMIRO MORRIS,MED STUDENT 01/17/19 1113: Subjective Subjective/Events-last exam Patient states she is feeling better with improved shortness of breath. Continues to be afebrile. Complaints of a nonproductive cough and some lightheadedness with positional changes. She denies any weakness, chest pain, or chills. She is still interested in smoking cessation and chantix at discharge. Review of Systems General: No Chills HEENT: Head Aches Pulmonary: Dyspnea, Cough (nonproductive) Cardiovascular: Lt Headedness (with positional changes); No: Chest Pain, Palpitations Gastrointestinal: No: Nausea, Vomiting, Abdominal Pain, Diarrhea, Constipation Neurological: No: Weakness, Numbness, Change in speech Focused Exam Lactate Level 01/15/19 13:44: Lactic Acid Level 0.88 Objective Exam Last Set of Vital Signs Vital Signs Date Time Temp Pulse Resp B/P (MAP) Pulse Ox O2 Delivery O2 Flow Rate FiO2 01/17/19 10:16 94 High Flow N/C 2.00 01/17/19 08:10 97.1 72 20 157/79 (105) 01/16/19 08:04 35 Capillary Refill : Less Than 3 Seconds I&O Intake and Output 01/17/19 00:00 Intake Total 1310 ml Output Total 950 ml Balance 360 ml Intake Oral 1310 ml Output Urine Total 950 ml # Voids 5 General: Alert, Oriented X3, Cooperative, No Acute Distress HEENT: Mucous Memb Moist/[place] Heart: Regular Rate, No Murmurs Abdomen: Normal Bowel Sounds, Soft, No Tenderness Extremities: No Cyanosis, No Edema Skin: No Rashes Neuro: Normal Gait Results/Procedures Lab Laboratory Tests 01/17/19 04:31: Sodium Level 144, Potassium Level 4.6, Chloride Level 111H, Carbon Dioxide Level 23, Anion Gap 10, Blood Urea Nitrogen 17, Creatinine 0.63, Estimat Glomerular Filtration Rate > 60, BUN/Creatinine Ratio 27, Glucose Level 115H, Calcium Level 9.0 Microbiology 01/15/19 Blood Culture - Preliminary, Resulted No growth Radiology CXR: Stable emphysematous changes when compared with exam from 10/15/2018. Procedures EKG: Sinus rhythm with nonspecific T wave abnormalities. Unchanged from previous Assessment/Plan Assessment/Plan Assessment & Plan 63 yo female with Acute COPD Exacerbation. continue inhaled and IV steroids as well as albuterol treatments. Discussed importance of smoking cessation, she voiced a desire to retry Chantix with discharge. Currently on home oxygen level of 2L (1) COPD with acute exacerbation Status: Acute Assessment & Plan: No evidence of infection. IV solumedrol, respiratory support- on home oxygen level of 2L. Duonebs, budesonide. Encouraged smoking cessation, will start Chantix on d/c if desired. (2) DVT prophylaxis Status: Acute Assessment & Plan: Enoxaparin Clinical Quality Measures DVT/VTE Risk/Contraindication: Risk Factor Score Per Nursin RFS Level Per Nursing on Admit: 4+=Very High ABBY MARIO MD 01/17/19 1436: Objective Exam Lungs: Other (diffuse wheezing) Assessment/Plan Assessment/Plan (1) COPD with acute exacerbation Status: Acute Assessment & Plan: No evidence of infection. IV solumedrol, respiratory support- on home oxygen level of 2L. Duonebs, budesonide. Encouraged smoking cessation, will start Chantix on d/c if desired. (2) DVT prophylaxis Status: Acute Assessment & Plan: Enoxaparin Supervisory-Addendum Brief Verification & Attestation Participated in pt care: history, MDM, physical Personally performed: exam, history, MDM, supervision of care Care discussed with: Medical Student Procedures: n/a Verification and Attestation of Medical Student E/M Service A medical student performed and documented this service in my presence. I reviewed and verified all information documented by the medical student and made modifications to such information, when appropriate. I personally performed the physical exam and medical decision making. Abby Mario, Jan 17, 2019,14:36 RAMIRO MORRIS,MED STUDENT Jan 17, 2019 11:13 ABBY MARIO MD Jan 17, 2019 14:36
[2019-01-17] MEDS: ENOXAPARIN 40 MG/0.4 ML (LOVENOX) SYR SC SCH (11:36)
[2019-01-17 11:57] VITALS: BP 120/75
--- NOTE | 2019-01-17 12:01 | NUR ---
Initial visit: The pt shared she is quitting smoking so she can be present for her children and grandchildren. She is Bahai, and in the past attended [employer] and [employer]. She does not currently attend a jhon community, however has established meaningful relationships within both churches.
[2019-01-17 16:00] VITALS: BP 133/74
[2019-01-17] MEDS: NS IV 1000 ML 1,000 ML IV SCH (17:20)
[2019-01-17 20:00] VITALS: BP 131/70
[2019-01-18] VITALS: BP 135/67
[2019-01-18] MEDS: methylPREDNISolone 40 MG/ML (Solu-MEDROL) VIAL IV SCH ×2 (00:33→05:57)
[2019-01-18] MEDS: RT-ALBUTEROL/IPRATROPIUM 3 ML (DUONEB) VIAL INH SCH ×3 (02:32→11:10)
[2019-01-18 04:00] VITALS: BP 116/70
--- NOTE | 2019-01-18 06:48 | Pulmonary Progress Note ---
JAVID THACKER,MED STUDENT 01/18/19 0648: Subjective Date Seen by a Provider: Jan 18, 2019 Time Seen by a Provider: 06:15 Subjective/Events-last exam Patient says that she had a headache most of the night what made it difficult to sleep. She is still having cough but it is now non-productive. She also admits to fever, chill, chest pain/dizziness when standing/ SOB/ racing heart and malaise. She denies nausea, vomiting, numbness, tingling and weakness. chest pain is sternal and midline and patient denies and radiation of chest pain Sepsis Event Evaluation Height, Weight, BMI Height: 5'2.00" Weight: 117lbs. 0.0oz. 53.819349rc; 22.3 BMI Method:Stated Focused Exam Lactate Level 01/15/19 13:44: Lactic Acid Level 0.88 Exam Exam Vital Signs Date Time Temp Pulse Resp B/P (MAP) Pulse Ox O2 Delivery O2 Flow Rate FiO2 01/18/19 02:33 95 High Flow N/C 2.00 01/18/19 01:00 87 01/18/19 00:00 97.6 93 18 135/67 (89) 98 High Flow N/C 3.00 01/17/19 22:31 97 High Flow N/C 2.00 01/17/19 22:26 97 High Flow N/C 2.00 01/17/19 20:45 Nasal Cannula 2.00 01/17/19 20:00 98.2 90 22 131/70 (90) 98 High Flow N/C 3.00 01/17/19 16:00 98.9 105 18 133/74 (93) 97 High Flow N/C 2.00 01/17/19 12:50 93 01/17/19 11:57 99.2 94 18 120/75 (90) 98 High Flow N/C 2.00 01/17/19 10:16 94 High Flow N/C 2.00 01/17/19 08:10 97.1 72 20 157/79 (105) 98 High Flow N/C 2.00 01/17/19 08:00 Nasal Cannula 2.00 01/17/19 07:00 87 I & O 01/18/19 07:00 Intake Total 3816 ml Balance 3816 ml Height & Weight Height: 5'2.00" Weight: 117lbs. 0.0oz. 53.391222uv; 22.3 BMI Method:Stated General Appearance: No Apparent Distress, WD/WN Respiratory: Lungs Clear, No Accessory Muscle Use, No Respiratory Distress, Other (sternal chest pain b/l ) Cardiovascular: No Edema, No Gallop, No Murmur, Normal Peripheral Pulses, Tachycardia Capillary Refill: Less Than 3 Seconds Peripheral Pulses: 2+ Dorsalis Pedis (R), 2+ Left Dors-Pedis (L), 2+ Radial Pulses (R), 2+ Radial Pulses (L) Gastrointestinal: normal bowel sounds, non tender, soft Extremity: Non Tender, No Calf Tenderness Neurologic/Psychiatric: Alert, Oriented x3, No Motor/Sensory Deficits, Normal Mood/Affect Skin: Normal Color, Warm/Dry Results Lab Laboratory Tests 01/17/19 04:31 Assessment/Plan Assessment/Plan Chronic respiratory failure d/t COPD - breathing treatments - IS costochondritis likely d/t to presistent cough - NSAIDs - OMM if patient desires Tobacco dependence - reinforced prior discussions about smoking cessation CAD - management per primary hypothyroidism - management per primary Degenerative disc disease - management per primary History of NHL Dr. [place] following JO SAMSON DO 01/18/19 1036: Subjective Time Seen by a Provider: 10:34 Subjective/Events-last exam PT is improved however still wheezy. Exam Exam General Appearance: No Apparent Distress, WD/WN HEENT: PERRL/EOMI, Pharynx Normal Respiratory: No Accessory Muscle Use, No Respiratory Distress, Decreased Breath Sounds, Wheezing, Other (sternal chest pain b/l ) Cardiovascular: No Edema, No Gallop Gastrointestinal: normal bowel sounds, non tender, soft Extremity: Non Tender, No Calf Tenderness Neurologic/Psychiatric: Alert, Oriented x3, No Motor/Sensory Deficits, Normal Mood/Affect Skin: Normal Color, Warm/Dry Assessment/Plan Assessment/Plan AECOPD - SVNs Q 4 - showed emphysematous changes when compared to prior imaging -Change solumedrol to prednisone taper Atelectasis - IS Supervisory-Addendum Brief Verification & Attestation Participated in pt care: history Personally performed: exam Care discussed with: Medical Student Procedures: n/a Verification and Attestation of Medical Student E/M Service A medical student performed and documented this service in my presence. I reviewed and verified all information documented by the medical student and made modifications to such information, when appropriate. I personally performed the physical exam and medical decision making. Jo Samson, Jan 18, 2019,10:36 JAVID THACKER,MED STUDENT Jan 18, 2019 06:48 JO SAMSON DO Jan 18, 2019 10:36
[2019-01-18] MEDS: RT-BUDESONIDE NEBS 0.5 MG/2ML (PULMICORT) AMP INH SCH (07:05)
[2019-01-18 08:00] VITALS: BP 118/65
[2019-01-18 11:12] VITALS: BP 118/65
[2019-01-18] MEDS: ENOXAPARIN 40 MG/0.4 ML (LOVENOX) SYR SC SCH (11:34)
[2019-01-18 12:00] VITALS: BP 143/65
[2019-01-18] MEDS ORDERED: predniSONE 10 MG TAB PO SCH (12:00)
[2019-01-18] MEDS ORDERED: PRD10T PO (13:31)
[2019-01-18] MEDS ORDERED: VARE0.5T PO (13:31)
--- NOTE | 2019-01-18 13:33 | Discharge Instructions ---
Discharge [facility] Discharge Medications New, Converted or Re-Newed RX: Transmitted to Pharmacy New Medications: Varenicline Tartrate (Chantix) 0.5 Mg Tablet 0.5 MG PO UD, #91 TAB 0 Refills 1 tab daily x 3 days, then 1 tab daily x 4 days, then 2 tabs twice daily. Prednisone (Prednisone) 10 Mg Tab 0 PO UD, #42 TAB 0 Refills Take 6 tabs(60mg)daily, decrease by 1 tab(10mg) every other day. Continued Medications: Albuterol Sulfate (Ventolin Hfa) 18 Gm Hfa.aer.ad 2 PUFF INH Q4H PRN for SHORTNESS OF BREATH, INHALER Albuterol Sulfate (Albuterol Sulfate) 2.5 Mg/3 Ml Vial.neb 2.5 MG NEB Q4H PRN for SHORTNESS OF BREATH, EA Fluticasone/Umeclidin/Vilanter (Trelegy Ellipta 100-62.5-25) 1 Each Blst.w.dev 1 PUFF INH DAILY, INHALER Patient Instructions Goal/Follow Up Appt: Follow up with Lalit Nelson on 01/23 at 10:40 am. Follow up with Dr. Samson as directed. Return to [facility] For: Fever, worsening shortness of breath Activity & Diet Discharge Diet: Regular Diet Activity as Tolerated: Yes Orders-Post D/C & Referrals Pneu Vac Indicated: Yes Copy Copies To 1: ABIODUN Mckoy BETHANY N MD Jan 18, 2019 13:33
--- NOTE | 2019-01-18 13:44 | Discharge Summary ---
RAMIRO MORRIS,MED STUDENT 01/18/19 1343: Discharge Summary Hospital Course Problems/Diagnosis: (1) COPD with acute exacerbation Assessment & Plan: No evidence of infection. Oral prednisone, respiratory support- on home oxygen level of 2L. Duonebs, budesonide. Encouraged smoking cessation, Chantix sent to pharmacy (2) DVT prophylaxis Assessment & Plan: Enoxaparin Hospital Course Date of Admission: Jan 15, 2019 at 16:20 Admission Diagnosis : Family Physician/Provider: Maximiliano Nelson Date of Discharge: 01/18/19 Discharge Diagnosis: Acute COPD Exacerbation Hospital Course: See problem list Labs and Pending Lab Test: Microbiology 01/15/19 Blood Culture - Preliminary, Resulted No growth Home Meds Active Chantix (Varenicline Tartrate) 0.5 Mg Tablet 0.5 Mg PO UD 1 tab daily x 3 days, then 1 tab daily x 4 days, then 2 tabs twice daily. Prednisone 10 Mg Tab 0 PO UD Take 6 tabs(60mg)daily, decrease by 1 tab(10mg) every other day. Reported Albuterol Sulfate 2.5 Mg/3 Ml Vial.neb 2.5 Mg NEB Q4H PRN Trelegy Ellipta 100-62.5-25 (Fluticasone/Umeclidin/Vilanter) 1 Each Blst.w.dev 1 Puff INH DAILY Ventolin Hfa (Albuterol Sulfate) 18 Gm Hfa.aer.ad 2 Puff INH Q4H PRN Assessment/Pt DC Instructions Begin oral prednisone and chantix as discussed. Continue home inhalers Follow-up with PCP and Dr. Samson as directed Encourages smoking cessation and script for chantix sent. Discharge Diet: No Restrictions Activity as Tolerated: Yes Orders-Post D/C & Referrals Pneu Vac Indicated: Yes Discharge Physical Examination Allergies: Coded Allergies: oxycodone HCl (Verified Adverse Reaction, Severe, BLACK OUT, 01/15/19) morphine (Verified Adverse Reaction, Intermediate, Blackout, 01/15/19) General Appearance: No Apparent Distress, WD/WN HEENT: Moist Mucous Membranes Respiratory: No Accessory Muscle Use, No Respiratory Distress, Decreased Breath Sounds, Wheezing (inspiratory and expiratory), Other (sternal chest tenderness) Cardiovascular: Regular Rate, Rhythm, No Murmur Gastrointestinal: Normal Bowel Sounds, No Organomegaly, Non Tender, Soft; No Guarding, No Rebound Extremity: No Pedal Edema Skin: Normal Color, Warm/Dry Neurologic/Psychiatric: Alert, Oriented x3, Normal Mood/Affect Copy Copies To 1: Lalit Nelson APRN Discharge Summary Date of Admission Jan 15, 2019 at 16:20 Date of Discharge Jan 18, 2019 Discharge Date: Jan 18, 2019 Admission Diagnosis Acute COPD Exacerbation Discharge Diagnosis Acute COPD Exacerbation Clinical Quality Measures DVT/VTE Risk/Contraindication: Risk Factor Score Per Nursin RFS Level Per Nursing on Admit: 4+=Very High ABBY MOCTEZUMA MD 01/18/192033: Discharge Summary Hospital Course Problems/Diagnosis: (1) COPD with acute exacerbation Assessment & Plan: No evidence of infection. Oral prednisone, respiratory support- on home oxygen level of 2L. Duonebs, budesonide. Encouraged smoking cessation, Chantix sent to pharmacy Discharge Physical Examination Allergies: Coded Allergies: oxycodone HCl (Verified Adverse Reaction, Severe, BLACK OUT, 01/15/19) morphine (Verified Adverse Reaction, Intermediate, Blackout, 01/15/19) Copy Copies To 1: Lalit Nelson APRN Supervisory-Addendum Brief Verification & Attestation Participated in pt care: history, MDM, physical Personally performed: exam, history, MDM, supervision of care Care discussed with: Medical Student Procedures: n/a Verification and Attestation of Medical Student E/M Service A medical student performed and documented this service in my presence. I reviewed and verified all information documented by the medical student and made modifications to such information, when appropriate. I personally performed the physical exam and medical decision making. Abby Moctezuma, Jan 18, 2019,20:34 RAMIRO MORRIS,MED STUDENT Jan 18, 2019 13:43 ABBY MOCTEZUMA MD Jan 18, 2019 20:34
[2019-01-18] MEDS ORDERED: RT-ALBUTEROL/IPRATROPIUM 3 ML (DUONEB) VIAL INH SCH (15:00)
== END 2019-01-18 15:19 | disposition home or self-care (01) | DRG 191 ==
LOC: EDUNIT# 13:38 → ER 13:39 → 4TH 16:20
PROVIDERS: ADMIT Family Medicine; ATTEND Family Medicine
DX: J43.9 Emphysema, unspecified (principal); J98.11 Atelectasis; J96.10 Chronic respiratory failure, unspecified whether with hypoxia or hypercapnia; C85.90 Non-Hodgkin lymphoma, unspecified, unspecified site; M94.0 Chondrocostal junction syndrome [Tietze]; I25.10 Atherosclerotic heart disease of native coronary artery without angina pectoris; F17.210 Nicotine dependence, cigarettes, uncomplicated; I73.9 Peripheral vascular disease, unspecified; E78.00 Pure hypercholesterolemia, unspecified; K21.9 Gastro-esophageal reflux disease without esophagitis; E03.9 Hypothyroidism, unspecified; M19.041 Primary osteoarthritis, right hand; M19.042 Primary osteoarthritis, left hand; M16.0 Bilateral primary osteoarthritis of hip; M51.36 Other intervertebral disc degeneration, lumbar region; M81.0 Age-related osteoporosis without current pathological fracture; F41.9 Anxiety disorder, unspecified; Z99.81 Dependence on supplemental oxygen; Z85.3 Personal history of malignant neoplasm of breast; Z92.21 Personal history of antineoplastic chemotherapy; Z92.3 Personal history of irradiation
CPT/HCPCS: 36415; 36600; 71045; 80048; 80053; 82805; 83605; 84484; 85007; 85025; 85027; 85610; 85730; 87040; 93005; 94640; 94760

== ENCOUNTER 2019-02-05 22:35 | Inpatient (IN) | payer MEDICARE ==
[~2019-02-05] VITALS: Ht 157 cm; Wt 54.7 kg
[~2019-02-05 22:35] MED LIST changes: +ALBU18HF2 INH; +ALBU2.5V4 NEB; +FLUT1BLS3 INH; +PRD10T PO; +VARE0.5T PO
[2019-02-05] MEDS ORDERED: RT-ALBUTEROL SULF 2.5 MG/3 ML PRE-MIX VIAL INH STA (22:40)
[2019-02-05] MEDS ORDERED: NS IV 1000 ML 1,000 ML IV SCH (22:40)
[2019-02-05] MEDS ORDERED: RT-ALBUTEROL/IPRATROPIUM 3 ML (DUONEB) VIAL ONE (22:41)
[2019-02-05] MEDS ORDERED: RT-ALBUTEROL SULF 2.5 MG/3 ML PRE-MIX VIAL ONE (22:41)
[2019-02-05] MEDS ORDERED: RT-ALBUTEROL/IPRATROPIUM 3 ML (DUONEB) VIAL INH ONE (22:45)
[2019-02-05] MEDS ORDERED: RT-SODIUM CHL INHALATION 3 ML VIAL IH ONE (22:45)
--- NOTE | 2019-02-05 22:50 | ED Respiratory ---
General Chief Complaint: Respiratory Problems Stated Complaint: SOB Source: patient, EMS Exam Limitations: no limitations History of Present Illness Date Seen by Provider: Feb 05, 2019 Time Seen by Provider: 22:31 Initial Comments Patient presents to ER from home by EMS with chief complaint of shortness of breath wheezing occasional cough. She's had some chills but no fever. She has a history of COPD and has been using her albuterol inhaler every 4 hours as well as a albuterol by nebulizer every 3-4 hours for the past 2 or 3 days. 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 EMS reports they gave her 2 DuoNeb on route and she received an albuterol from her own supply just half an hour prior to their arrival. She did not feel much improvement. Her oxygen sats are 98% on 2 L baseline nasal cannula when they arrived. No chest pain nausea. Allergies and Home Medications Allergies Coded Allergies: oxycodone HCl (Verified Adverse Reaction, Severe, BLACK OUT, 01/15/19) morphine (Verified Adverse Reaction, Intermediate, Blackout, 01/15/19) Home Medications Albuterol Sulfate 18 Gm Hfa.aer.ad, 2 PUFF INH Q4H PRN for SHORTNESS OF BREATH, (Reported) Fluticasone/Umeclidin/Vilanter 1 Each Blst.w.dev, 1 PUFF INH DAILY, (Reported) Varenicline Tartrate 0.5 Mg Tablet, 0.5 MG PO UD 1 tab daily x 3 days, then 1 tab daily x 4 days, then 2 tabs twice daily. Prescribed by: NIKKO MOCTEZUMA on 01/18/19 1331 Patient Home Medication List Home Medication List Reviewed: Yes Review of Systems Review of Systems Constitutional: chills; No fever; malaise EENTM: No ear discharge, No hearing loss, No ear pain Respiratory: see HPI, cough, short of breath, wheezing Cardiovascular: No chest pain, No palpitations Gastrointestinal: No abdominal pain, No constipation, No diarrhea, No nausea Genitourinary: No discharge, No dysuria Musculoskeletal: No back pain, No joint pain Skin: No pruritus, No rash Past Qtbqttn-Kwrskx-Ewhyvy Hx Patient Social History Alcohol Use: Denies Use Recreational Drug Use: No Smoking Status: Former Smoker Type Used: Cigarettes Former Smoker, Quit: Jul 17, 2018 2nd Hand Smoke Exposure: Yes Recent Hopitalizations: No Immunizations Up To Date Tetanus Booster (TDap): Less than 5yrs Date of Pneumonia Vaccine: Jan 14, 2012 Date of Influenza Vaccine: May 15, 2018 Seasonal Allergies Seasonal Allergies: No Past Medical History Surgeries: Yes (CARPAL TUNNEL, HAND SURGERY) Abdominal, Appendectomy, Breast, Orthopedic, Tubal Ligation Respiratory: Yes COPD Cardiac: Yes (carotid artery problem) High Cholesterol, Peripheral Vascular Neurological: No 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: 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 0.0oz. 53.143748gi; 22.3 BMI Method:Stated General Appearance: moderate distress, thin Eyes: Bilateral Eye Normal Inspection, Bilateral Eye PERRL, Bilateral Eye EOMI HEENT: PERRL/EOMI, pharynx normal Neck: non-tender, full range of motion Respiratory: respiratory distress (moderate, tripoding, diaphragmatic breathing), decreased breath sounds, accessory muscle use (moderate), wheezing, expiration (prolonged expiration) Cardiovascular: normal peripheral pulses (heart rate upper 80s), regular rate, rhythm, no edema Extremities: normal range of motion, normal capillary refill Neurologic/Psychiatric: alert, normal mood/affect, oriented x 3 Progress/Results/Core Measures Suspected Sepsis SIRS Temperature: Pulse: Respiratory Rate: Laboratory Tests 02/05/19 22:38: White Blood Count 10.5 Blood Pressure / Mean: Laboratory Tests 02/05/19 22:38: Creatinine 0.71, Platelet Count 341, Total Bilirubin 0.3 Results/Orders Lab Results Laboratory Tests Test 02/05/19 22:38 02/05/19 22:40 Range/Units White Blood Count 10.5 4.3-11.0 10^3/uL Red Blood Count 5.14 4.35-5.85 10^6/uL Hemoglobin 14.3 11.5-16.0 G/DL Hematocrit 46 35-52 % Mean Corpuscular Volume 89 80-99 FL Mean Corpuscular Hemoglobin 28 25-34 PG Mean Corpuscular Hemoglobin Concent 31 L 32-36 G/DL Red Cell Distribution Width 13.8 10.0-14.5 % Platelet Count 341 130-400 10^3/uL Mean Platelet Volume 10.2 7.4-10.4 FL Neutrophils (%) (Auto) 65 42-75 % Lymphocytes (%) (Auto) 22 12-44 % Monocytes (%) (Auto) 8 0-12 % Eosinophils (%) (Auto) 5 0-10 % Basophils (%) (Auto) 0 0-10 % Neutrophils # (Auto) 6.8 1.8-7.8 X 10^3 Lymphocytes # (Auto) 2.3 1.0-4.0 X 10^3 Monocytes # (Auto) 0.8 0.0-1.0 X 10^3 Eosinophils # (Auto) 0.5 H 0.0-0.3 10^3/uL Basophils # (Auto) 0.0 0.0-0.1 10^3/uL Sodium Level 139 135-145 MMOL/L Potassium Level 5.3 H 3.6-5.0 MMOL/L Chloride Level 103 98-107 MMOL/L Carbon Dioxide Level 25 21-32 MMOL/L Anion Gap 11 5-14 MMOL/L Blood Urea Nitrogen 18 7-18 MG/DL Creatinine 0.71 0.60-1.30 MG/DL Estimat Glomerular Filtration Rate > 60 BUN/Creatinine Ratio 25 Glucose Level 115 H 70-105 MG/DL Calcium Level 10.1 8.5-10.1 MG/DL Corrected Calcium 9.8 8.5-10.1 MG/DL Magnesium Level 2.0 1.6-2.4 MG/DL Total Bilirubin 0.3 0.1-1.0 MG/DL Aspartate Amino Transf (AST/SGOT) 17 5-34 U/L Alanine Aminotransferase (ALT/SGPT) 19 0-55 U/L Alkaline Phosphatase 101 40-136 U/L C-Reactive Protein High Sensitivity 0.09 0.00-0.50 MG/DL Total Protein 7.5 6.4-8.2 GM/DL Albumin 4.4 3.2-4.5 GM/DL Blood Gas Puncture Site LEFT RADIAL Blood Gas Patient Temperature 36.7 Arterial Blood pH 7.30 *L 7.37-7.43 Arterial Blood Partial Pressure CO2 58 H 35-45 MMHG Arterial Blood Partial Pressure O2 86 79-93 MMHG Arterial Blood HCO3 28 H 23-27 MMOL/L Arterial Blood Total CO2 29.6 21.0-31.0 MMOL/L Arterial Blood Oxygen Saturation 96 94-100 % Arterial Blood Base Excess 2.0 -2.5-2.5 MMOL/L Robby Test YES-POS Blood Gas Ventilator Setting NO Blood Gas Inspired Oxygen 2L My Orders Orders - DARRIN FLOREZ Albuterol Pre-Mix Nebs (Rt) (Proventil (02/05/19 22:41) Albuterol/Ipra Inhalation Soln (Duoneb I (02/05/19 22:41) Ed Iv/Invasive Line Start (02/05/19 22:40) Ns Iv 1000 Ml (Sodium Chloride 0.9%) (02/05/19 22:40) Albuterol Pre-Mix Nebs (Rt) (Proventil (02/05/19 22:40) Albuterol/Ipra Inhalation Soln (Duoneb I (02/05/19 22:45) Sodium Chl Inhalation (Rt-Sodium Chl Inh (02/05/19 22:45) Rt Request For Service (02/05/19 22:40) Chest 1 View, Ap/Pa Only (02/05/19 22:40) Svn Small Volume Nebulizer (02/05/19 22:40) Cbc With Automated Diff (02/05/19 22:40) Comprehensive Metabolic Panel (02/05/19 22:40) Hs C Reactive Protein (02/05/19 22:40) Magnesium (02/05/19 22:40) O2 (02/05/19 22:40) Arterial Blood Gas (02/05/19 22:49) Arterial Blood Draw (02/05/19 22:45) Magnesium 1 Gm/100 Ml Ivpb (Magnesium Sandoval (02/06/19 00:15) Methylprednisolone Sod Succ (Solu-Medrol (02/06/19 00:15) Medications Given in ED Current Medications Medications Dose Ordered Sig/Phani Route Start Time Stop Time Status Last Admin Dose Admin Albuterol/ Ipratropium 3 ml ONCE ONCE INH 02/05/19 22:45 02/05/19 22:47 DC 02/05/19 22:54 3 ML Vital Signs/I&O 02/05/19 02/05/19 02/05/19 22:35 22:38 22:54 Temp 36.7 Pulse 85 Resp 32 B/P (MAP) 142/101 (115) Pulse Ox 95 95 97 O2 Delivery Nasal Cannula Nasal Cannula Vapotherm O2 Flow Rate 2.00 3.00 20.00 FiO2 30 Capillary Refill : Progress Note : Time: 22:49 Progress Note COPD exacerbation with possibility of infectious bronchitis versus pneumonia. Plan to give her some IV fluids, obtain labs, hour-long and put her on Vapotherm for her increased work of breathing. ABG. If she has an elevated white count or infiltrate on chest x-ray than we'll plan to get a septic workup and blood cultures. Otherwise plan on Solu-Medrol. Diagnostic Imaging Diagonstic Imaging: Xray Plain Films/CT/US/NM/MRI: chest (1v) Reviewed: Reviewed by Me Departure Communication (Admissions) Time/Spoke to Admitting Phy: 00:11 Discussed case lab imaging findings and availability of a stepdown unit bed and she agrees to admit the patient. Lovenox, steroids Time/Spoke to Consulting Phy: 00:11 Dr. Samson, pulmonology agrees to consult on the patient. Solu-Medrol 40 mg every 6 hours. Impression Primary Impression: COPD with exacerbation Additional Impression: Acute and chronic respiratory failure with hypercapnia Disposition: 01 HOME, SELF-CARE Condition: Stable Admissions Decision to Admit Reason: Admit from ER (General) Decision to Admit/Date: Feb 06, 2019 Time/Decision to Admit Time: 00:10 Departure-Patient Inst. Referrals: [facility] (PCP) Primary Care Physician OUMOU DELGADO (Family) Primary Care Physician DARRIN FLOREZ Feb 05, 2019 22:50
[2019-02-05 22:51] LABS: BASOPHILS % (AUTO) 0 % (0-10); EOSINOPHILS # (AUTO) 0.5 10^3/uL (0.0-0.3); EOSINOPHILS % (AUTO) 5 % (0-10); HEMATOCRIT 46 % (35-52); HEMOGLOBIN 14.3 G/DL (11.5-16.0); LYMPHOCYTES # (AUTO) 2.3 X 10^3 (1.0-4.0); LYMPHOCYTES % (AUTO) 22 % (12-44); MEAN CORPUSCULAR HEMOGLOBIN 28 PG (25-34); MEAN CORPUSCULAR HGB CONC 31 G/DL (32-36); MEAN CORPUSCULAR VOLUME 89 FL (80-99); MEAN PLATELET VOLUME 10.2 FL (7.4-10.4); MONOCYTES # (AUTO) 0.8 X 10^3 (0.0-1.0); MONOCYTES % (AUTO) 8 % (0-12); NEUTROPHILS # (AUTO) 6.8 X 10^3 (1.8-7.8); NEUTROPHILS % (AUTO) 65 % (42-75); PLATELET COUNT 341 10^3/uL (130-400); RED CELL DISTRIBUTION WIDTH 13.8 % (10.0-14.5); WHITE BLOOD COUNT 10.5 10^3/uL (4.3-11.0)
[2019-02-05 22:54] LABS: ABG OXYGEN SATURATION 96 % (94-100); ABG PCO2 58 MMHG (35-45); ABG PO2 86 MMHG (79-93); ABG TCO2 29.6 MMOL/L (21.0-31.0)
[2019-02-05 22:55] LABS: ALLENS TEST YES-POS; INSPIRED O2 2L
[2019-02-05 22:56] LABS: PATIENT TEMP 36.7; VENTILATOR NO
[2019-02-05 23:05] LABS: ALANINE AMINOTRANSFERASE 19 U/L (0-55); ALBUMIN 4.4 GM/DL (3.2-4.5); ALKALINE PHOSPHATASE 101 U/L (40-136); BILIRUBIN,TOTAL 0.3 MG/DL (0.1-1.0); BUN/CREATININE RATIO 25; CALCIUM 10.1 MG/DL (8.5-10.1); CARBON DIOXIDE 25 MMOL/L (21-32); CHLORIDE 103 MMOL/L (98-107); CREATININE SERUM 0.71 MG/DL (0.60-1.30); GFR ESTIMATED > 60; GLUCOSE 115 MG/DL (70-105); POTASSIUM 5.3 MMOL/L (3.6-5.0); SODIUM 139 MMOL/L (135-145); TOTAL PROTEIN 7.5 GM/DL (6.4-8.2)
[2019-02-05] MEDS ORDERED: PROP40TA5 PO (23:20)
[2019-02-05] MEDS ORDERED: VENL75CA93 PO (23:20)
[2019-02-05] MEDS ORDERED: LEVO175T5 PO (23:20)
[2019-02-05] MEDS ORDERED: ROSU20TA32 PO (23:20)
[2019-02-06] VITALS (14 sets, daily range): BP systolic 119–164; BP diastolic 58–117
[2019-02-06] MEDS ORDERED: MAGNESIUM 1 GM/100 ML IVPB 100 ML IV ONE (00:15)
[2019-02-06] MEDS ORDERED: methylPREDNISolone 125 MG (Solu-MEDROL) VIAL IVP ONE (00:15)
[2019-02-06] MEDS ORDERED: fentaNYL INJECTION 100 MCG/2 ML AMP ONE (01:35)
[2019-02-06] MEDS ORDERED: RT-ALBUTEROL/IPRATROPIUM 3 ML (DUONEB) VIAL INH PRN (01:45)
[2019-02-06] MEDS: RT-ALBUTEROL/IPRATROPIUM 3 ML (DUONEB) VIAL INH SCH ×6 (01:54→19:42)
[2019-02-06] MEDS ORDERED: IBUPROFEN 800 MG (MOTRIN) TAB PO PRN (02:00)
[2019-02-06] MEDS ORDERED: LORazepam INJ 2 MG/ML (ATIVAN) VIAL IV PRN (02:00)
[2019-02-06] MEDS ORDERED: fentaNYL INJECTION 100 MCG/2 ML AMP IV PRN ×2 (02:00→06:00)
[2019-02-06] MEDS ORDERED: ANTACID SUSP 30 ML UDC (MYLANTA) PO PRN (02:00)
[2019-02-06] MEDS ORDERED: ACETAMINOPHEN 500 MG TAB (TYLENOL) PO PRN (02:00)
[2019-02-06] MEDS: NS IV 1000 ML 1,000 ML IV SCH ×3 (02:10→20:45)
[2019-02-06 04:10] LABS: BASOPHILS % (AUTO) 0 % (0-10); EOSINOPHILS # (AUTO) 0.1 10^3/uL (0.0-0.3); EOSINOPHILS % (AUTO) 1 % (0-10); HEMATOCRIT 47 % (35-52); HEMOGLOBIN 14.6 G/DL (11.5-16.0); LYMPHOCYTES # (AUTO) 0.9 X 10^3 (1.0-4.0); LYMPHOCYTES % (AUTO) 8 % (12-44); MEAN CORPUSCULAR HEMOGLOBIN 28 PG (25-34); MEAN CORPUSCULAR HGB CONC 31 G/DL (32-36); MEAN CORPUSCULAR VOLUME 89 FL (80-99); MEAN PLATELET VOLUME 10.5 FL (7.4-10.4); MONOCYTES # (AUTO) 0.1 X 10^3 (0.0-1.0); MONOCYTES % (AUTO) 1 % (0-12); NEUTROPHILS # (AUTO) 10.2 X 10^3 (1.8-7.8); NEUTROPHILS % (AUTO) 90 % (42-75); PLATELET COUNT 256 10^3/uL (130-400); RED CELL DISTRIBUTION WIDTH 13.7 % (10.0-14.5); WHITE BLOOD COUNT 11.3 10^3/uL (4.3-11.0)
[2019-02-06 04:27] LABS: ALANINE AMINOTRANSFERASE 20 U/L (0-55); ALBUMIN 4.3 GM/DL (3.2-4.5); ALKALINE PHOSPHATASE 98 U/L (40-136); BILIRUBIN,TOTAL 0.3 MG/DL (0.1-1.0); BUN/CREATININE RATIO 28; CALCIUM 9.5 MG/DL (8.5-10.1); CARBON DIOXIDE 21 MMOL/L (21-32); CHLORIDE 107 MMOL/L (98-107); CREATININE SERUM 0.61 MG/DL (0.60-1.30); GFR ESTIMATED > 60; GLUCOSE 116 MG/DL (70-105); POTASSIUM 5.8 MMOL/L (3.6-5.0); SODIUM 137 MMOL/L (135-145); TOTAL PROTEIN 7.3 GM/DL (6.4-8.2)
--- NOTE | 2019-02-06 04:43 | Pulmonary Consultation ---
JAVID THACKER,MED STUDENT 02/06/19 0443: History of Present Illness History of Present Illness Date of Consultation 02/06/19 04:32 Time Seen by Provider: 04:32 Date of Admission History of Present Illness Patient is a 63 y/o female that presented to the ER from home EMS with a cc of SOB, wheezing, occasional nonproductive cough and some fever and chills. She states that her SOB began on Monday and worsened yesterday. Patient says that she is on 2L O2 and has been using her albuterol inhaler every 4hrs as well has her albuterol nebulizer every 3-4hrs for the past 3 days but they have not helped with the SOB. SOB is made worse by movement and she is mentions that she has also experienced tightness in her chest, decreased appetite, swelling in her feet and diaphoresis. She has a history of COPD managed by Dr. Samson's office. Patient is has an extensive smoking history of >30 ppd but say that she "has not smoked anything in the past week." ROS admits: see HPI denies: nausea, vomiting, stomach pain, chest pain, numbness, tingling, headache, light headedness Allergies and Home Medications Allergies Coded Allergies: oxycodone HCl (Verified Adverse Reaction, Severe, BLACK OUT, 01/15/19) morphine (Verified Adverse Reaction, Intermediate, Blackout, 01/15/19) Home Medications Acetaminophen 500 Mg Tablet, 500-1,000 MG PO Q4H PRN for PAIN-MILD, (Reported) Albuterol Sulfate 18 Gm Hfa.aer.ad, 2 PUFF INH Q4H PRN for SHORTNESS OF BREATH, (Reported) Albuterol Sulfate 2.5 Mg/3 Ml Vial.neb, 2.5 MG NEB Q4H PRN for SHORTNESS OF BREATH, (Reported) Fluticasone/Umeclidin/Vilanter 1 Each Blst.w.dev, 1 PUFF INH DAILY, (Reported) Levothyroxine Sodium 175 Mcg Tablet, 175 MCG PO DAILY, (Reported) Loratadine 10 Mg Tablet, 10 MG PO DAILY Prescribed by: JAGDEEP HAYNES on 02/09/19 1318 Montelukast Sodium 10 Mg Tablet, 10 MG PO HS Prescribed by: JAGDEEP HAYNES on 02/09/19 1318 Nystatin 100,000 Unit/1 Ml Oral.susp, 4 ML PO QID PRN for THRUSH, (Reported) Prednisone 10 Mg Tab.ds.pk, 10 MG PO DAILY Take 6 tabs(60mg)daily,decrease by 1 tab(10MG)daily. Prescribed by: JAGDEEP HAYNES on 02/09/19 1318 Propranolol HCl 40 Mg Tablet, 40 MG PO BID, (Reported) Rosuvastatin Calcium 20 Mg Tablet, 20 MG PO HS, (Reported) Varenicline Tartrate 1 Each Tab.ds.pk, PO UD, (Reported) DELIVERED 01-31-19 Venlafaxine HCl 75 Mg Cap.er.24h, 75 MG PO 1000, (Reported) Past Cnnipjg-Xjoiuo-Ssjqan Hx Patient Social History Alcohol Use: Denies Use Recreational Drug Use: No Smoking Status: Former Smoker Type Used: Cigarettes Former Smoker, Quit: Jul 17, 2018 2nd Hand Smoke Exposure: Yes Recent Foreign Travel: No Contact w/Someone Who Travel: No Recent Infectious Disease Expo: No Recent Hopitalizations: No Physical Abuse: No Sexual Abuse: No Mistreated: No Fear: No Immunizations Up To Date Tetanus Booster (TDap): Less than 5yrs Date of Pneumonia Vaccine: Jan 14, 2012 Date of Influenza Vaccine: May 15, 2018 Seasonal Allergies Seasonal Allergies: No Past Medical History Surgeries: Yes (CARPAL TUNNEL, HAND SURGERY) Abdominal, Appendectomy, Breast, Orthopedic, Tubal Ligation Respiratory: Yes COPD Cardiac: Yes (carotid artery problem) High Cholesterol, Hypertension, Peripheral Vascular Neurological: No : No 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 0.0oz. 53.586302em; 21.98 BMI Method:Stated Exam Exam Vital Signs Date Time Temp Pulse Resp B/P (MAP) Pulse Ox O2 Delivery O2 Flow Rate FiO2 02/06/19 02:30 80 23 151/58 (89) 94 Vapotherm 20.00 30.00 02/06/19 02:15 78 20 145/98 (114) 95 Vapotherm 20.00 30.00 02/06/19 02:00 80 26 151/93 (112) 93 Vapotherm 20.00 30.00 02/06/19 01:55 93 Vapotherm 20.00 30 02/06/19 01:45 86 25 135/73 (93) 91 Vapotherm 20.00 30.00 02/06/19 01:36 93 02/06/19 01:32 71 92 30 02/06/19 01:30 92 22 91 Vapotherm 20.00 30.00 02/06/19 01:20 Vapotherm 20.00 30 02/06/19 01:20 94 22 143/117 (126) 92 Vapotherm 20.00 30.00 02/06/19 00:42 36.5 72 26 115/77 (115) 99 Vapotherm 20.00 02/05/19 22:54 97 Vapotherm 20.00 30 02/05/19 22:38 95 Nasal Cannula 3.00 02/05/19 22:35 36.7 85 32 142/101 (115) 95 Nasal Cannula 2.00 I & O 02/06/19 07:00 Intake Total 1100 ml Balance 1100 ml Height & Weight Height: 5'2.00" Weight: 117lbs. 0.0oz. 53.798774dy; 21.98 BMI Method:Stated General Appearance: Anxious, Chronically ill, Mild Distress Respiratory: Chest Non Tender, No Accessory Muscle Use, No Respiratory Distress, Expiration, Inspiration, Rales, Wheezing Cardiovascular: No Edema, No Gallop, No JVD, No Murmur, Normal Peripheral Pulses, Tachycardia Capillary Refill: Less Than 3 Seconds Peripheral Pulses: 2+ Dorsalis Pedis (R), 2+ Radial Pulses (L) Gastrointestinal: non tender, soft, no pulsatile mass Extremity: Non Tender, No Calf Tenderness, No Pedal Edema Neurologic/Psychiatric: Alert, Oriented x3, No Motor/Sensory Deficits, Normal Mood/Affect Skin: Normal Color, Warm/Dry Lymphatic: No Adenopathy Results Lab Laboratory Tests 02/05/19 22:38 02/06/19 03:30 Assessment/Plan Assessment/Plan AECOPD with respiratory acidosis Duoneb Q4h Solu-Medol 40mg IV Q6h - vapotherm 20% with flow of 30 - Fentanyl 50mg Q 2PR 1 dose given at 0200 HYperkalemic - monitor and see if it corrects with correction of respiratory acidosis - consider 10units insulin with 1 amp D50 HTN propranolol 40mg BID @ home - Anxiety - Venlafaxine 75mg PO QD @home - 0.25mg Ativan IV @ 0300 Hypothyroidism levothyroxine 175ug QD @ home - check TSH High cholesterol crestor 20mg PO QD @ home GERD FENGIPPx - NS @ 100ml; first liter - monitor - cardiac diet - lovenox 40mg QD IV starting at 0900 today GLENNBLAYNE DUCKWORHT DO 02/06/19 0548: Allergies and Home Medications Allergies Coded Allergies: oxycodone HCl (Verified Adverse Reaction, Severe, BLACK OUT, 01/15/19) morphine (Verified Adverse Reaction, Intermediate, Blackout, 01/15/19) Home Medications Acetaminophen 500 Mg Tablet, 500-1,000 MG PO Q4H PRN for PAIN-MILD, (Reported) Albuterol Sulfate 18 Gm Hfa.aer.ad, 2 PUFF INH Q4H PRN for SHORTNESS OF BREATH, (Reported) Albuterol Sulfate 2.5 Mg/3 Ml Vial.neb, 2.5 MG NEB Q4H PRN for SHORTNESS OF BREATH, (Reported) Fluticasone/Umeclidin/Vilanter 1 Each Blst.w.dev, 1 PUFF INH DAILY, (Reported) Levothyroxine Sodium 175 Mcg Tablet, 175 MCG PO DAILY, (Reported) Loratadine 10 Mg Tablet, 10 MG PO DAILY Prescribed by: JAGDEEP HAYNES on 02/09/191317 Montelukast Sodium 10 Mg Tablet, 10 MG PO HS Prescribed by: JAGDEEP HAYNES on 02/09/191317 Nystatin 100,000 Unit/1 Ml Oral.susp, 4 ML PO QID PRN for THRUSH, (Reported) Prednisone 10 Mg Tab.ds.pk, 10 MG PO DAILY Take 6 tabs(60mg)daily,decrease by 1 tab(10MG)daily. Prescribed by: JAGDEEP HAYNES on 02/09/191317 Propranolol HCl 40 Mg Tablet, 40 MG PO BID, (Reported) Rosuvastatin Calcium 20 Mg Tablet, 20 MG PO HS, (Reported) Varenicline Tartrate 1 Each Tab.ds.pk, PO UD, (Reported) DELIVERED 01-31-19 Venlafaxine HCl 75 Mg Cap.er.24h, 75 MG PO 1000, (Reported) Review of Systems Time Seen by Provider: 14:09 Exam Exam General Appearance: Anxious, Chronically ill, Mild Distress Respiratory: Chest Non Tender, No Accessory Muscle Use, No Respiratory Distress, Expiration, Inspiration, Rales, Wheezing Cardiovascular: No Edema, No Gallop, No JVD, No Murmur, Normal Peripheral Pulses Extremity: Non Tender, No Calf Tenderness, No Pedal Edema Neurologic/Psychiatric: Alert, Oriented x3, No Motor/Sensory Deficits, Normal Mood/Affect Skin: Normal Color, Warm/Dry Lymphatic: No Adenopathy Assessment/Plan Assessment/Plan AECOPD with respiratory acidosis Duoneb Q4h Solu-Medol 40mg IV Q6h - vapotherm 20% with flow of 30 Leukocytosis - secondary to steroids HYperkalemic - monitor and see if it corrects with correction of respiratory acidosis - consider 10units insulin with 1 amp D50 HTN propranolol 40mg BID @ home - Anxiety - Monitor Hypothyroidism High cholesterol GERD FENGIPPx Supervisory-Addendum Brief Verification & Attestation Participated in pt care: history Personally performed: exam, history Care discussed with: Medical Student Procedures: n/a Verification and Attestation of Medical Student E/M Service A medical student performed and documented this service in my presence. I reviewed and verified all information documented by the medical student and made modifications to such information, when appropriate. I personally performed the physical exam and medical decision making. Blayne Samson, Feb 12, 2019,14:10 JAVID THACKER,MED STUDENT Feb 06, 2019 04:43 BLAYNE SAMSON DO Feb 06, 2019 05:48
[2019-02-06] MEDS ORDERED: DEXTROSE 50% 50 ML (IMS) SYR IV NR (05:45)
[2019-02-06] MEDS ORDERED: SOD POLYSTERENE 15 GM/60 ML (KAYEXALATE) UNIT DOSE PO NR (05:45)
[2019-02-06] MEDS ORDERED: inSUlin (REGULAR) HUMAN 1 UNIT/0.01 ML (CHARGE PER UNIT) IV NR (05:45)
--- NOTE | 2019-02-06 05:56 | Diagnostic Imaging Report ---
INDICATION: Shortness of breath. Comparison with 01/15/2019 Portable chest shows mild obstructive interstitial lung disease with some apical bullous changes. There are no acute infiltrates. The heart is not enlarged. No pulmonary edema. No pneumothorax or pleural effusion. There is apical pleural scarring more prominent on the right. IMPRESSION: Obstructive lung disease without acute change. Dictated by: Dictated on workstation # [id number]
[2019-02-06] MEDS: methylPREDNISolone 40 MG/ML (Solu-MEDROL) VIAL IV SCH ×3 (06:32→17:37)
[2019-02-06 06:35] LABS: ABG BASE EXCESS 0.7 MMOL/L (-2.5-2.5); ABG OXYGEN SATURATION 93 % (94-100); ABG PCO2 46 MMHG (35-45); ABG PH 7.36 (7.37-7.43); ABG PO2 61 MMHG (79-93); ABG TCO2 27.2 MMOL/L (21.0-31.0)
[2019-02-06 06:39] LABS: ALLENS TEST YES-POS; INSPIRED O2 30%; VENTILATOR NO
[2019-02-06] MEDS: RT-BUDESONIDE NEBS 0.5 MG/2ML (PULMICORT) AMP INH SCH ×2 (07:47→19:42)
--- NOTE | 2019-02-06 08:44 | Diagnostic Imaging Report ---
INDICATION: COPD, exacerbation with hypercarbia. TECHNIQUE: Single view chest 4:01 AM. CORRELATION STUDY: 02/05/2019 FINDINGS: Heart size and mediastinum are stable. Vasculature perhaps slightly less congested. Lung vann hyperinflated with scattered areas of fibrosis. Biapical pleural thickening present. There is suggestion more focal rounded density left lung apex, approximately 18 mm in size. This projects just below a overlying monitor lead. Rightward curvature thoracic spine. IMPRESSION: 1. Chronic appearing changes of the lung parenchyma. No definitive superimposed infiltrate. 2. There is a more focal nodule about the left lung apex. This may correspond to area of pleural thickening. However, there does appear to be overall change from prior studies possibility of underlying pulmonary mass not excluded. Dictated by: Dictated on workstation # [id number]
[2019-02-06] MEDS: LORATADINE (CLARITIN) 10 MG TAB PO SCH (09:07)
--- NOTE | 2019-02-06 09:40 | NUR ---
transferred from ICU to 4th floor med surg. Report from [facility]
--- NOTE | 2019-02-06 09:49 | NUR ---
MICHAEL MARK admitted to room 433, with an admitting diagnosis of COPD exacerbation , on 02/06/19 from ICU transfer, accompanied by staff.MICHAEL MARK introduced to surroundings, call light, bed controls, phone, TV, temperature control, lights, meal times, smoking policy, visitor policy, side rail policy, bathrooms and showers. MICHAEL MARK verbalizes understanding that [facility] is not responsible for the loss or damage to any personal effects or valuables that are kept in the patients posession during their hospitalization. MICHAEL MARK verbalizes understanding of Interdisciplinary Patient Education. Patient was informed about the Rapid Response Team and its purpose.
--- NOTE | 2019-02-06 10:19 | History & Physical-Hospitalist ---
History of Present Illness HPI/Chief Complaint CC: Dyspnea HPI: This is a 63yoWF clinic pt of [facility] who is known to me from prior COPD exacerbations who continues to smoke who presented to the ER with dyspnea and wheezing found to have hypercapnia requried vapotherm for hypoxia and placed in cardiac step-down with close monitoring. Dr. Samson has been consulted and will work on weening down the Vapotherm, transferring to 4th floor, and aggressive steroids to be maintained. I did restart all of her home meds. Source: patient Exam Limitations: no limitations Date Seen 02/06/19 Time Seen by a Provider: 09:30 Attending Physician Babita Walden DO [facility] Referring Physician Date of Admission Feb 06, 2019 at 00:20 Home Medications & Allergies Home Medications Reviewed patient Home Medication Reconciliation performed by pharmacy medication reconciliations biological lab technician and/or nursing. Patients Allergies have been reviewed. Allergies Allergies Coded Allergies oxycodone HCl (Verified Adverse Reaction, Severe, BLACK OUT, 01/15/19) morphine (Verified Adverse Reaction, Intermediate, Blackout, 01/15/19) Past Blkzunw-Phtksk-Vnhpml Hx Past Med/Social Hx: Reviewed Nursing Past Med/Soc Hx, Reviewed and Corrections made Patient Social History Marrital Status: single Employed/Student: unemployed Alcohol Use: Denies Use Recreational Drug Use: No Smoking Status: Current Everyday Smoker Former Smoker, Quit: Jul 17, 2018 Type Used: Cigarettes 2nd Hand Smoke Exposure: Yes Recent Foreign Travel: No Contact w/other who traveled: No Recent Hopitalizations: No Recent Infectious Disease Expo: No Immunizations Up To Date Tetanus Booster (TDap): Less than 5yrs Date of Pneumonia Vaccine: Jan 14, 2012 Date of Influenza Vaccine: May 15, 2018 Seasonal Allergies Seasonal Allergies: No Past Medical History Surgeries: Abdominal, Appendectomy, Breast, Orthopedic, Tubal Ligation Respiratory: COPD Cardiac: High Cholesterol, Hypertension, Peripheral Vascular : No 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: No Sexually Transmitted Disease: No Menopausal Gastrointestinal: Gastroesophageal Reflux, Hiatal Hernia Musculoskeletal: Degenerate Disk Disease, Arthritis, Chronic Back Pain Endocrine: Hypothyroidsim Cancer: Breast, Lymphoma (NHL) Psychosocial: Anxiety History of Blood Disorders: No Review of Systems Constitutional: see HPI Respiratory: cough, dyspnea on exertion, wheezing Physical Exam Physical Exam Vital Signs Vital Signs - First Documented 02/05/19 02/05/19 22:35 22:54 Temp 36.7 Pulse 85 Resp 32 B/P (MAP) 142/101 (115) Pulse Ox 95 O2 Delivery Nasal Cannula O2 Flow Rate 2.00 FiO2 30 Capillary Refill : Less Than 3 Seconds Height, Weight, BMI Height: 5'2.00" Weight: 117lbs. 0.0oz. 53.813472uz; 21.98 BMI Method:Stated General Appearance: No Apparent Distress, WD/WN, Chronically ill Eyes: Right Eye Normal Inspection, Right Eye PERRL HEENT: PERRL/EOMI, Normal ENT Inspection, Pharynx Normal, Moist Mucous Membranes Neck: Full Range of Motion, Normal Inspection, Non Tender Respiratory: Chest Non Tender, No Accessory Muscle Use, No Respiratory Distress, Crackles, Wheezing Cardiovascular: Regular Rate, Rhythm, No Edema, No Gallop, No JVD, No Murmur, Normal Peripheral Pulses Gastrointestinal: Normal Bowel Sounds, No Organomegaly, No Pulsatile Mass, Non Tender, Soft Back: Normal Inspection, No CVA Tenderness, No Vertebral Tenderness Extremity: Normal Capillary Refill, Normal Inspection, Normal Range of Motion, Non Tender, No Calf Tenderness, No Pedal Edema Neurologic/Psychiatric: Alert, Oriented x3, No Motor/Sensory Deficits, Normal Mood/Affect Skin: Normal Color, Warm/Dry Lymphatic: No Adenopathy Results Results/Procedures Labs Laboratory Tests 02/05/19 22:38 02/06/19 03:30 Patient resulted labs reviewed. Assessment/Plan Admission Diagnosis Assessment: AECOPD Smoker Plan: IV steroids Nebs O2 Admission Status: Inpatient Order (span 2 midnights) Reason for Inpatient Admission: severe copd Diagnosis/Problems Diagnosis/Problems (1) COPD with exacerbation Status: Acute (2) Acute and chronic respiratory failure with hypercapnia Status: Acute (3) RESPIRATORY FAILURE, UNSP, UNSP W HYPOXIA OR HYPERCAPNIA Status: Chronic (4) DVT prophylaxis Status: Acute (5) Smoker Status: Acute Clinical Quality Measures DVT/VTE Risk/Contraindication: Risk Factor Score Per Nursin RFS Level Per Nursing on Admit: 4+=Very High BABITA WALDEN DO Feb 06, 2019 10:19
[2019-02-06] MEDS ORDERED: ACET-2267 PO (10:37)
[2019-02-06] MEDS ORDERED: NYST1000 PO (10:37)
[2019-02-06] MEDS ORDERED: ALBU2.5V4 NEB (10:37)
[2019-02-06] MEDS ORDERED: VARE1TAB21 PO (10:39)
--- NOTE | 2019-02-06 10:40 | NUR ---
WENT OVER THE EXT MED HX WITH THE PATIENT AND SHE VERIFIED HOW SHE IS TAKING IT. SHE TAKES TYLENOL NEEDED OTC. SHE STATES HER LEVOTHYROXINE DOSE HAS BEEN INCREASED, SHE NO LONGER TAKES THE 150MCG THAT WAS FILLED RECENTLY SHE IS ONLY TAKING 175MCG DAILY.
[2019-02-06] MEDS ORDERED: RT-ALBUTEROL SULF 2.5 MG/3 ML PRE-MIX VIAL INH PRN (11:45)
[2019-02-06] MEDS ORDERED: NYSTATIN PO PRN (11:45)
[2019-02-06] MEDS ORDERED: NON-FORMULARY MEDICATION 1 EA EA (Acetaminophen (Tylenol Extra Strength) 1,000 MG) PO PRN (11:45)
[2019-02-06] MEDS ORDERED: RT-ALBUTEROL SULF 2.5 MG/3 ML PRE-MIX VIAL IH PRN (11:45)
[2019-02-06] MEDS ORDERED: NYSTATIN ORAL SUSP 5 ML UDC PO PRN (12:15)
[2019-02-06] MEDS: PROPRANOLOL 20 MG (INDERAL) TABLET PO SCH (20:41)
[2019-02-06] MEDS: MONTELUKAST 10 MG (SINGULAIR) TAB PO SCH (20:41)
[2019-02-06] MEDS: ENOXAPARIN 40 MG/0.4 ML (LOVENOX) SYR SC SCH (20:41)
[2019-02-06] MEDS: ROSUVASTATIN 20 MG (CRESTOR) TABLET PO SCH (20:41)
[2019-02-06] MEDS ORDERED: NON-FORMULARY MEDICATION 1 EA EA (Propranolol HCl 40 MG) PO SCH (21:00)
[2019-02-07 00:59] VITALS: BP 127/92
[2019-02-07] MEDS: RT-ALBUTEROL/IPRATROPIUM 3 ML (DUONEB) VIAL INH SCH ×6 (02:55→21:24)
[2019-02-07 04:00] VITALS: BP 158/82
[2019-02-07] MEDS: LEVOTHYROXINE 75 MCG (LEVOTHROID) TABLET PO SCH (05:39)
[2019-02-07] MEDS: methylPREDNISolone 40 MG/ML (Solu-MEDROL) VIAL IV SCH ×2 (05:39)
[2019-02-07] MEDS: NS IV 1000 ML 1,000 ML IV SCH ×2 (05:39→17:28)
[2019-02-07] MEDS: LEVOTHYROXINE 100 MCG (LEVOTHROID) TAB PO SCH (05:39)
[2019-02-07 06:41] LABS: BASOPHILS % (AUTO) 0 % (0-10); EOSINOPHILS % (AUTO) 0 % (0-10); HEMATOCRIT 38 % (35-52); HEMOGLOBIN 11.8 G/DL (11.5-16.0); LYMPHOCYTES # (AUTO) 0.9 X 10^3 (1.0-4.0); LYMPHOCYTES % (AUTO) 7 % (12-44); MEAN CORPUSCULAR HEMOGLOBIN 27 PG (25-34); MEAN CORPUSCULAR HGB CONC 31 G/DL (32-36); MEAN CORPUSCULAR VOLUME 87 FL (80-99); MEAN PLATELET VOLUME 10.2 FL (7.4-10.4); MONOCYTES # (AUTO) 0.3 X 10^3 (0.0-1.0); MONOCYTES % (AUTO) 2 % (0-12); NEUTROPHILS # (AUTO) 11.6 X 10^3 (1.8-7.8); NEUTROPHILS % (AUTO) 91 % (42-75); PLATELET COUNT 255 10^3/uL (130-400); RED CELL DISTRIBUTION WIDTH 13.4 % (10.0-14.5); WHITE BLOOD COUNT 12.7 10^3/uL (4.3-11.0)
[2019-02-07] MEDS: RT-BUDESONIDE NEBS 0.5 MG/2ML (PULMICORT) AMP INH SCH ×2 (06:55→19:02)
[2019-02-07 06:58] LABS: BAND NEUTROPHILS 1 %; BASOPHILS % (MANUAL) 0 %; EOSINOPHILS % (MANUAL) 0 %; LYMPHOCYTES % (MANUAL) 5 %; MONOCYTES % (MANUAL) 0 %; NEUTROPHILS % (MANUAL) 94 %; ROULEAUX SLIGHT
[2019-02-07 07:05] LABS: ALANINE AMINOTRANSFERASE 16 U/L (0-55); ALBUMIN 3.6 GM/DL (3.2-4.5); ALKALINE PHOSPHATASE 88 U/L (40-136); BILIRUBIN,TOTAL 0.2 MG/DL (0.1-1.0); BUN/CREATININE RATIO 23; CALCIUM 8.8 MG/DL (8.5-10.1); CARBON DIOXIDE 23 MMOL/L (21-32); CHLORIDE 112 MMOL/L (98-107); CREATININE SERUM 0.62 MG/DL (0.60-1.30); GFR ESTIMATED > 60; GLUCOSE 128 MG/DL (70-105); POTASSIUM 4.5 MMOL/L (3.6-5.0); SODIUM 141 MMOL/L (135-145); TOTAL PROTEIN 5.9 GM/DL (6.4-8.2)
[2019-02-07 08:00] VITALS: BP 143/77
[2019-02-07] MEDS: LORATADINE (CLARITIN) 10 MG TAB PO SCH (08:27)
[2019-02-07] MEDS: PROPRANOLOL 20 MG (INDERAL) TABLET PO SCH ×2 (08:27→20:27)
[2019-02-07] MEDS ORDERED: NON-FORMULARY MEDICATION 1 EA EA (Levothyroxine Sodium 175 MCG) PO SCH (09:00)
[2019-02-07] MEDS ORDERED: NON-FORMULARY MEDICATION 1 EA EA (Fluticasone/Umeclidin/Vilanter (Trelegy Ellipta 100-62.5 INH SCH (09:00)
--- NOTE | 2019-02-07 09:17 | Pulmonary Progress Note ---
Subjective Time Seen by a Provider: 08:28 Subjective/Events-last exam Complains of SOB. Sepsis Event Evaluation Height, Weight, BMI Height: 5'2.00" Weight: 117lbs. 0.0oz. 53.780087az; 21.98 BMI Method:Stated Exam Exam Vital Signs Date Time Temp Pulse Resp B/P (MAP) Pulse Ox O2 Delivery O2 Flow Rate FiO2 02/07/19 07:04 98 Nasal Cannula 2.00 02/07/19 06:55 97 Nasal Cannula 2.00 02/07/19 04:00 36.6 87 18 158/82 (107) 94 Nasal Cannula 4.00 02/07/19 02:55 95 Nasal Cannula 2.00 02/07/19 00:59 36.8 89 18 127/92 (104) 98 Nasal Cannula 4.00 02/06/19 21:00 Nasal Cannula 2.00 02/06/19 20:03 36.8 116 18 153/67 (95) 96 Nasal Cannula 4.00 02/06/19 19:42 96 Nasal Cannula 2.00 02/06/19 19:42 96 Nasal Cannula 2.00 02/06/19 16:09 36.0 110 20 149/75 (99) 95 Nasal Cannula 4.00 02/06/19 16:00 Nasal Cannula 2.00 02/06/19 14:03 95 Nasal Cannula 2.00 02/06/19 12:00 Nasal Cannula 2.00 02/06/19 12:00 36.5 102 20 131/77 (95) 97 Nasal Cannula 4.00 02/06/19 11:08 99 Nasal Cannula 4.00 02/06/19 10:00 36.6 95 24 133/84 (100) 98 Nasal Cannula 4.00 02/06/19 10:00 Room Air 4.00 02/06/19 09:30 94 Nasal Cannula 4.00 I & O 02/07/19 07:00 Intake Total 1330 ml Output Total 1 ml Balance 1329 ml Height & Weight Height: 5'2.00" Weight: 117lbs. 0.0oz. 53.519581ng; 21.98 BMI Method:Stated General Appearance: No Apparent Distress, WD/WN, Chronically ill HEENT: PERRL/EOMI, Normal ENT Inspection, Pharynx Normal, Moist Mucous Membranes Neck: Full Range of Motion, Normal Inspection, Non Tender Respiratory: Chest Non Tender, No Accessory Muscle Use, No Respiratory Distress, Crackles, Wheezing Cardiovascular: Regular Rate, Rhythm, No Edema, No Gallop, No JVD, No Murmur, Normal Peripheral Pulses Capillary Refill: Less Than 3 Seconds Peripheral Pulses: 2+ Dorsalis Pedis (R), 2+ Radial Pulses (L) Gastrointestinal: non tender, soft, no pulsatile mass Extremity: Normal Capillary Refill, Normal Inspection, Normal Range of Motion, Non Tender, No Calf Tenderness, No Pedal Edema Neurologic/Psychiatric: Alert, Oriented x3, No Motor/Sensory Deficits, Normal Mood/Affect Skin: Normal Color, Warm/Dry Lymphatic: No Adenopathy Results Lab Laboratory Tests 02/05/19 22:38 02/06/19 03:30 02/07/19 06:27 Assessment/Plan Assessment/Plan AECOPD with respiratory acidosis Duoneb Q4h Solu-Medol 40mg IV Q6h - Change to Prednisone 40mg daily - Titrate oxygen as tolerated Possible lung mass per CXR -Will check CT of chest with contrast HTN Anxiety Hypothyroidism levothyroxine High cholesterol GERD JO ELIZABETH DO Feb 07, 2019 09:17
[2019-02-07] MEDS ORDERED: NON-FORMULARY MEDICATION 1 EA EA (Venlafaxine HCl (Venlafaxine HCl ER) 75 MG) PO SCH (10:00)
--- NOTE | 2019-02-07 10:41 | Progress Note - Hospitalist ---
Subjective HPI/CC On Admission Date Seen by Provider: Feb 07, 2019 Time Seen by Provider: 09:30 CC: Dyspnea HPI: This is a 63yoWF clinic pt of [facility] who is known to me from prior COPD exacerbations who continues to smoke who presented to the ER with dyspnea and wheezing found to have hypercapnia requried vapotherm for hypoxia and placed in cardiac step-down with close monitoring. Dr. Samson has been consulted and will work on weening down the Vapotherm, transferring to 4th floor, and aggressive steroids to be maintained. I did restart all of her home meds. Subjective/Events-last exam Pt still wheezing but much improved Getting up and around and doing better Will order PT and OT Just got a shower and feels good about that Tolerating aggressive treatment for COPD Now off Vapotherm Review of Systems Pulmonary: Dyspnea, Cough Objective Exam Vital Signs Vital Signs Date Time Temp Pulse Resp B/P (MAP) Pulse Ox O2 Delivery O2 Flow Rate FiO2 02/07/19 16:35 36.8 88 20 142/63 (89) 97 Nasal Cannula 2.00 02/06/19 08:00 25 Capillary Refill : Less Than 3 Seconds General Appearance: No Apparent Distress, WD/WN, Chronically ill Respiratory: No Accessory Muscle Use, No Respiratory Distress, Crackles, Wheezing Cardiovascular: Regular Rate, Rhythm, No Edema, No Gallop, No JVD, No Murmur, Normal Peripheral Pulses Neurologic/Psychiatric: Alert, Oriented x3, No Motor/Sensory Deficits, Normal Mood/Affect Results/Procedures Lab Laboratory Tests 02/07/19 06:27 Patient resulted labs reviewed. Assessment/Plan Assessment and Plan Assess & Plan/Chief Complaint Assessment: AECOPD Smoker Hypoxia Hypercapnia Plan: Possible DC soon Diagnosis/Problems Diagnosis/Problems (1) COPD with exacerbation Status: Acute (2) Acute and chronic respiratory failure with hypercapnia Status: Acute (3) RESPIRATORY FAILURE, UNSP, UNSP W HYPOXIA OR HYPERCAPNIA Status: Chronic (4) DVT prophylaxis Status: Acute (5) Smoker Status: Acute Clinical Quality Measures DVT/VTE Risk/Contraindication: Risk Factor Score Per Nursin RFS Level Per Nursing on Admit: 4+=Very High JAGDEEP HAYNES DO Feb 07, 2019 10:41
[2019-02-07] MEDS ORDERED: HOLD METFORMIN - RECEIVED CONTRAST 20 ML VIAL IV SCH (11:15)
[2019-02-07] MEDS ORDERED: IOHEXOL 350 MG/ML 100 ML (OMNIPAQUE 350) VIAL IV ONE (11:15)
[2019-02-07] MEDS ORDERED: NS 100 ML (IVPB) BAG IV ONE (11:15)
--- NOTE | 2019-02-07 11:55 | Physical Therapy Evaluation ---
PT Evaluation-General Medical Diagnosis Admission Date Feb 06, 2019 at 00:20 Medical Diagnosis: COPD exacerbation/hypercarbia Onset Date: Feb 06, 2019 Therapy Diagnosis Therapy Diagnosis: debility Height/Weight Height (Feet): 5 Height (Inches): 2.00 Weight (Pounds): 117 Weight (Ounces): 0.0 Precautions Precautions/Isolations: Standard Precautions Referral Physician: Win Reason for Referral: Evaluation/Treatment Medical History Pertinent Medical History: COPD, Hypothroidism, PVD, Smoking Current History EMS secondary to SOB Reviewed History: Yes Social History Home: Apartment Current Living Status: Alone Entry Into Home: Level Entry Prior/Core FIM Prior Level of Function Therapy Code Descriptions/Definitions Functional [place] Measure: 0=Not Assessed/NA 4=Minimal Assistance 1=Total Assistance 5=Supervision or Setup 2=Maximal Assistance 6=Modified [place] 3=Moderate Assistance 7=Complete [place] Therapy Quality Codes: 6 Independent with activity with or without an assistive device 5 Patient requires set up or clean up by helper. Patient completes activity by themselves 4 Supervision or touching assist (CGA). [place] provide cues , steadying assist 3 The helper provides less than half the effort to complete the activity 2 The helper provides more than half the effort to complete the activity 1 Dependent. The helper does all the effort to complete an activity 7 Patient refused to complete or attempt activity 9 The patient did not perform the activity before the current illness or injury 88 Not attempted due to Medical conditions or safety concerns Functional Abilities and Goals: Independent: Patient completed the activities by him/herself, with or without an assistive device, with no assistance from a helper. Needed Some Help: Patient needed partial assistance from another person to complete activities. Dependent: A helper completed the activities for the patient. Unknown: Not Applicable: Bed Mobility: 7 Transfers (B,C,W/C) (FIM): 7 Gait: 7 Stairs: 7 Indoor Mobility (Ambulation): Independent Stairs: Independent Prior Devices Use: None PT Evaluation-Current Subjective Patient agrees to PT. No c/o. Objective Patient Orientation: Normal For Age Problem Solving: Good Attachments: Oxygen, IV ROM/Strength ROM Lower Extremities bilateral LE WFL Strength Lower Extremities 5/5 grossly bilateral LE Integumentary/Posture Integumentary refer to nursing notes Bowel Incontinence: No Bladder Incontinence: No Posture WFL Neuromuscular (Tone, Coordination, Reflexes) intact Sensory Vision: Wears Glasses Hearing: Functional Sensation Right Lower Extremit: Intact Sensation Left Lower Extremity: Intact Transfers Therapy Code Descriptions/Definitions Functional [place] Measure: 0=Not Assessed/NA 4=Minimal Assistance 1=Total Assistance 5=Supervision or Setup 2=Maximal Assistance 6=Modified [place] 3=Moderate Assistance 7=Complete [place] Transfers (B, C, W/C) (FIM): 7 Scootin Rollin Supine to/from Sit: 7 Sit to/from Stand: 7 Gait Mode of Locomotion: Walk Anticipated Mode of Locomotion: Walk Gait (FIM): 7 Distance (FIM): 3=150 ft Distance: 800' Gait Level of Assist: 7 Gait Assistive Device: None Comments/Gait Description safe and functional with no deviation Balance Sitting Static: Normal Sitting Dynamic: Normal Standing Static: Normal Standing Dynamic: Normal Assessment/Needs 63 y.o. female, is currently at [facility] with all gross motor skills safely and does not require skilled therapy intervention. Thank you for this referral. Rehab Potential: Fair PT Plan Treatment/Plan Treatment Plan: Continue Plan of Care Treatment Plan: Other Treatment Duration: Feb 07, 2019 Frequency: 1 time per week Estimated Hrs Per Day: .25 hour per day Patient and/or Family Agrees t: Yes Time/GCodes Time In: 1135 Time Out: 1147 Total Billed Treatment Time: 12 Total Billed Treatment 1 visit EVLow 12 min SALAS ASHTON PT Feb 07, 2019 11:55
[2019-02-07 12:00] VITALS: BP 164/75
[2019-02-07] MEDS: predniSONE 20 MG TAB PO SCH (12:21)
[2019-02-07] MEDS: VENlafaxine XR 75 MG (EFFEXOR XR) CAP PO SCH (12:21)
--- NOTE | 2019-02-07 13:08 | Diagnostic Imaging Report ---
PROCEDURE: CT chest with contrast only. TECHNIQUE: Multiple contiguous axial images were obtained through the chest after administration of intravenous contrast. Auto Exposure Controls were utilized during the CT exam to meet ALARA standards for radiation dose reduction. INDICATION: Left breast carcinoma. Patient has an area of nodularity in the left upper lung noted on recent chest x-ray. The study is performed for further evaluation. Correlation is made with chest radiograph one day earlier as well as prior CT chest from 09/20/2018. FINDINGS: No axillary lymphadenopathy is detected. Small lymph nodes in the mediastinum are similar to prior exam. The tammie appear stable. There is no pericardial or pleural fluid identified. Severe emphysematous changes in both lungs are again noted. There are biapical regions of pleural parenchymal scarring. Area of thickening along the posterior lateral aspect of the pleura in the left upper chest likely accounts for the area of density noted on chest x-ray. This is similar to prior exam. No discrete pulmonary mass is identified. The upper abdomen is unremarkable. IMPRESSION: Severe emphysematous changes bilaterally. There is biapical pleural parenchymal scarring, likely accounting for the density on recent chest x-ray. No discrete pulmonary mass or evidence of thoracic lymphadenopathy is detected. Dictated by: Dictated on workstation # [id number]
[2019-02-07 16:35] VITALS: BP 142/63
[2019-02-07 19:57] VITALS: BP 167/76
[2019-02-07] MEDS: MONTELUKAST 10 MG (SINGULAIR) TAB PO SCH (20:27)
[2019-02-07] MEDS: ENOXAPARIN 40 MG/0.4 ML (LOVENOX) SYR SC SCH (20:27)
[2019-02-07] MEDS: ROSUVASTATIN 20 MG (CRESTOR) TABLET PO SCH (20:30)
[2019-02-08 00:33] VITALS: BP 165/83
[2019-02-08] MEDS: RT-ALBUTEROL/IPRATROPIUM 3 ML (DUONEB) VIAL INH SCH ×6 (01:17→21:45)
[2019-02-08 04:00] VITALS: BP 156/72
[2019-02-08] MEDS: NS IV 1000 ML 1,000 ML IV SCH ×3 (04:02→21:00)
[2019-02-08] MEDS: LEVOTHYROXINE 100 MCG (LEVOTHROID) TAB PO SCH (05:31)
[2019-02-08] MEDS: LEVOTHYROXINE 75 MCG (LEVOTHROID) TABLET PO SCH (05:31)
[2019-02-08] MEDS: predniSONE 20 MG TAB PO SCH (05:32)
[2019-02-08 06:47] LABS: BASOPHILS % (AUTO) 0 % (0-10); EOSINOPHILS % (AUTO) 0 % (0-10); HEMATOCRIT 34 % (35-52); HEMOGLOBIN 10.7 G/DL (11.5-16.0); LYMPHOCYTES # (AUTO) 2.5 X 10^3 (1.0-4.0); LYMPHOCYTES % (AUTO) 24 % (12-44); MEAN CORPUSCULAR HEMOGLOBIN 28 PG (25-34); MEAN CORPUSCULAR HGB CONC 32 G/DL (32-36); MEAN CORPUSCULAR VOLUME 89 FL (80-99); MEAN PLATELET VOLUME 10.5 FL (7.4-10.4); MONOCYTES # (AUTO) 0.8 X 10^3 (0.0-1.0); MONOCYTES % (AUTO) 8 % (0-12); NEUTROPHILS # (AUTO) 7.3 X 10^3 (1.8-7.8); NEUTROPHILS % (AUTO) 69 % (42-75); PLATELET COUNT 208 10^3/uL (130-400); RED CELL DISTRIBUTION WIDTH 13.3 % (10.0-14.5); WHITE BLOOD COUNT 10.6 10^3/uL (4.3-11.0)
[2019-02-08] MEDS: RT-BUDESONIDE NEBS 0.5 MG/2ML (PULMICORT) AMP INH SCH ×2 (06:48→18:34)
[2019-02-08 07:07] LABS: ALANINE AMINOTRANSFERASE 22 U/L (0-55); ALBUMIN 3.2 GM/DL (3.2-4.5); ALKALINE PHOSPHATASE 68 U/L (40-136); BILIRUBIN,TOTAL 0.2 MG/DL (0.1-1.0); BUN/CREATININE RATIO 19; CALCIUM 8.1 MG/DL (8.5-10.1); CARBON DIOXIDE 23 MMOL/L (21-32); CHLORIDE 113 MMOL/L (98-107); CREATININE SERUM 0.59 MG/DL (0.60-1.30); GFR ESTIMATED > 60; GLUCOSE 91 MG/DL (70-105); POTASSIUM 3.9 MMOL/L (3.6-5.0); SODIUM 142 MMOL/L (135-145)
[2019-02-08 08:00] VITALS: BP 136/82
--- NOTE | 2019-02-08 08:08 | Pulmonary Progress Note ---
Subjective Time Seen by a Provider: 08:27 Subjective/Events-last exam Pt still complains of SOB. Sepsis Event Evaluation Height, Weight, BMI Height: 5'2.00" Weight: 117lbs. 0.0oz. 53.034314go; 21.98 BMI Method:Stated Exam Exam Vital Signs Date Time Temp Pulse Resp B/P (MAP) Pulse Ox O2 Delivery O2 Flow Rate FiO2 02/08/19 06:54 99 Nasal Cannula 2.00 02/08/19 06:49 97 Nasal Cannula 2.00 02/08/19 04:00 36.3 72 20 156/72 (100) 99 Nasal Cannula 2.00 02/08/19 01:17 97 Nasal Cannula 2.00 02/08/19 00:33 36.0 71 18 165/83 (110) 95 Nasal Cannula 2.00 02/07/19 21:24 97 Nasal Cannula 2.00 02/07/19 21:00 Nasal Cannula 2.00 02/07/19 19:57 36.4 87 22 167/76 (106) 97 Nasal Cannula 2.00 02/07/19 19:08 96 Nasal Cannula 2.00 02/07/19 19:03 96 Nasal Cannula 2.00 02/07/19 16:35 36.8 88 20 142/63 (89) 97 Nasal Cannula 2.00 02/07/19 15:21 97 Nasal Cannula 2.00 02/07/19 12:00 36.2 82 18 164/75 (104) 98 Nasal Cannula 2.00 02/07/19 11:18 97 Nasal Cannula 2.00 02/07/19 09:00 Nasal Cannula 2.00 I & O 02/08/19 07:00 Intake Total 1640 ml Balance 1640 ml Height & Weight Height: 5'2.00" Weight: 117lbs. 0.0oz. 53.238915pg; 21.98 BMI Method:Stated General Appearance: No Apparent Distress, WD/WN, Chronically ill HEENT: PERRL/EOMI, Normal ENT Inspection, Pharynx Normal, Moist Mucous Membranes Neck: Full Range of Motion, Normal Inspection, Non Tender Respiratory: No Accessory Muscle Use, No Respiratory Distress, Crackles, Wheez ing Cardiovascular: Regular Rate, Rhythm, No Edema, No Gallop, No JVD, No Murmur, Normal Peripheral Pulses Capillary Refill: Less Than 3 Seconds Peripheral Pulses: 2+ Dorsalis Pedis (R), 2+ Radial Pulses (L) Gastrointestinal: non tender, soft, no pulsatile mass Extremity: Normal Capillary Refill, Normal Inspection, Normal Range of Motion, Non Tender, No Calf Tenderness, No Pedal Edema Neurologic/Psychiatric: Alert, Oriented x3, No Motor/Sensory Deficits, Normal Mood/Affect Skin: Normal Color, Warm/Dry Lymphatic: No Adenopathy Results Lab Laboratory Tests 02/07/19 06:27 02/08/19 06:35 Assessment/Plan Assessment/Plan AECOPD with respiratory acidosis Duoneb Q4h Prednisone 40mg daily - Titrate oxygen as tolerated Possible lung mass per CXR -Will check CT of chest-- shows no lung mass HTN Anxiety Hypothyroidism levothyroxine High cholesterol GERD JO ELIZABETH DO Feb 08, 2019 08:08
--- NOTE | 2019-02-08 09:48 | Progress Note - Hospitalist ---
Subjective HPI/CC On Admission Date Seen by Provider: Feb 08, 2019 Time Seen by Provider: 09:00 CC: Dyspnea HPI: This is a 63yoWF clinic pt of [facility] who is known to me from prior COPD exacerbations who continues to smoke who presented to the ER with dyspnea and wheezing found to have hypercapnia requried vapotherm for hypoxia and placed in cardiac step-down with close monitoring. Dr. Samson has been consulted and will work on weening down the Vapotherm, transferring to 4th floor, and aggressive steroids to be maintained. I did restart all of her home meds. Subjective/Events-last exam Pt doing better but still wheezing. Not able to be discharged due to her severe COPD and hypercapnia and hypoxia when she was admitted. Bowels are moving. Walking around with PT. Doing well otherwise. No pain is reported. Review of Systems Pulmonary: Dyspnea Objective Exam Vital Signs Vital Signs Date Time Temp Pulse Resp B/P (MAP) Pulse Ox O2 Delivery O2 Flow Rate FiO2 02/08/19 18:39 98 Nasal Cannula 2.00 02/08/19 15:50 36.5 74 22 153/72 (99) 02/06/19 08:00 25 Capillary Refill : Less Than 3 Seconds General Appearance: No Apparent Distress, WD/WN, Chronically ill Respiratory: No Accessory Muscle Use, No Respiratory Distress, Crackles, Wheezing Cardiovascular: Regular Rate, Rhythm Neurologic/Psychiatric: Alert, Oriented x3, No Motor/Sensory Deficits, Normal Mood/Affect Results/Procedures Lab Laboratory Tests 02/08/19 06:35 Patient resulted labs reviewed. Assessment/Plan Assessment and Plan Assess & Plan/Chief Complaint Assessment: AECOPD Smoker Hypoxia Hypercapnia Plan: Possible DC soon Diagnosis/Problems Diagnosis/Problems (1) COPD with exacerbation Status: Acute (2) Acute and chronic respiratory failure with hypercapnia Status: Acute (3) RESPIRATORY FAILURE, UNSP, UNSP W HYPOXIA OR HYPERCAPNIA Status: Chronic (4) DVT prophylaxis Status: Acute (5) Smoker Status: Acute Clinical Quality Measures DVT/VTE Risk/Contraindication: Risk Factor Score Per Nursin RFS Level Per Nursing on Admit: 4+=Very High JAGDEEP HAYNES DO Feb 08, 2019 09:47
[2019-02-08] MEDS: VENlafaxine XR 75 MG (EFFEXOR XR) CAP PO SCH (11:00)
[2019-02-08] MEDS: PROPRANOLOL 20 MG (INDERAL) TABLET PO SCH ×2 (11:37→20:55)
[2019-02-08] MEDS: LORATADINE (CLARITIN) 10 MG TAB PO SCH (11:37)
[2019-02-08 12:00] VITALS: BP 166/83
[2019-02-08 15:50] VITALS: BP 153/72
[2019-02-08 20:40] VITALS: BP 174/88
[2019-02-08] MEDS: MONTELUKAST 10 MG (SINGULAIR) TAB PO SCH (20:55)
[2019-02-08] MEDS: ROSUVASTATIN 20 MG (CRESTOR) TABLET PO SCH (20:55)
[2019-02-08] MEDS: ENOXAPARIN 40 MG/0.4 ML (LOVENOX) SYR SC SCH (20:55)
[2019-02-09] VITALS: BP 147/70
[2019-02-09] MEDS: RT-ALBUTEROL/IPRATROPIUM 3 ML (DUONEB) VIAL INH SCH ×4 (01:54→14:59)
[2019-02-09 04:00] VITALS: BP 155/70
[2019-02-09] MEDS: LEVOTHYROXINE 75 MCG (LEVOTHROID) TABLET PO SCH (06:29)
[2019-02-09] MEDS: NS IV 1000 ML 1,000 ML IV SCH (06:29)
[2019-02-09] MEDS: LEVOTHYROXINE 100 MCG (LEVOTHROID) TAB PO SCH (06:29)
[2019-02-09] MEDS: predniSONE 20 MG TAB PO SCH (06:29)
[2019-02-09 07:49] VITALS: BP 133/71
[2019-02-09] MEDS: PROPRANOLOL 20 MG (INDERAL) TABLET PO SCH (09:06)
[2019-02-09] MEDS: VENlafaxine XR 75 MG (EFFEXOR XR) CAP PO SCH (09:06)
[2019-02-09] MEDS: LORATADINE (CLARITIN) 10 MG TAB PO SCH (09:06)
--- NOTE | 2019-02-09 10:30 | Pulmonary Progress Note ---
Subjective Time Seen by a Provider: 10:30 Subjective/Events-last exam No complications noted. Sepsis Event Evaluation Height, Weight, BMI Height: 5'2.00" Weight: 117lbs. 0.0oz. 53.492359ko; 21.98 BMI Method:Stated Exam Exam Vital Signs Date Time Temp Pulse Resp B/P (MAP) Pulse Ox O2 Delivery O2 Flow Rate FiO2 02/09/19 07:49 37.0 69 22 133/71 (91) 98 Nasal Cannula 2.00 02/09/19 04:00 36.6 71 18 155/70 (98) 96 Nasal Cannula 2.00 02/09/19 01:54 98 Nasal Cannula 2.00 02/09/19 00:00 36.8 56 18 147/70 (95) 95 Nasal Cannula 2.00 02/08/19 21:45 98 Nasal Cannula 2.00 02/08/19 20:50 Nasal Cannula 2.00 02/08/19 20:40 36.7 71 20 174/88 (116) 99 Nasal Cannula 2.00 02/08/19 18:39 98 Nasal Cannula 2.00 02/08/19 18:34 98 Nasal Cannula 2.00 02/08/19 15:50 36.5 74 22 153/72 (99) 99 Nasal Cannula 2.00 02/08/19 12:00 36.8 75 18 166/83 (110) 94 Nasal Cannula 2.00 I & O 02/09/19 07:00 Intake Total 3500 ml Output Total 1000 ml Balance 2500 ml Height & Weight Height: 5'2.00" Weight: 117lbs. 0.0oz. 53.064003qo; 21.98 BMI Method:Stated General Appearance: No Apparent Distress, WD/WN, Chronically ill HEENT: PERRL/EOMI, Normal ENT Inspection, Pharynx Normal, Moist Mucous Membranes Neck: Full Range of Motion, Normal Inspection, Non Tender Respiratory: No Accessory Muscle Use, No Respiratory Distress, Crackles, Wheezing Cardiovascular: Regular Rate, Rhythm Capillary Refill: Less Than 3 Seconds Peripheral Pulses: 2+ Dorsalis Pedis (R), 2+ Radial Pulses (L) Gastrointestinal: non tender, soft, no pulsatile mass Extremity: Normal Capillary Refill, Normal Inspection, Normal Range of Motion, Non Tender, No Calf Tenderness, No Pedal Edema Neurologic/Psychiatric: Alert, Oriented x3, No Motor/Sensory Deficits, Normal M ood/Affect Skin: Normal Color, Warm/Dry Lymphatic: No Adenopathy Results Lab Laboratory Tests 02/08/19 06:35 Assessment/Plan Assessment/Plan AECOPD with respiratory acidosis Duoneb Q4h Prednisone 40mg daily - Titrate oxygen as tolerated Possible lung mass per CXR -CT of chest-- shows no lung mass HTN Anxiety Hypothyroidism levothyroxine High cholesterol GERD Pt is ok for discharge from pulmonary standpoint. I will see her in 1-2wks as out pt. JO ELIZABETH DO Feb 09, 2019 10:30
[2019-02-09] MEDS: RT-BUDESONIDE NEBS 0.5 MG/2ML (PULMICORT) AMP INH SCH (10:48)
[2019-02-09 10:51] VITALS: BP 133/71
[2019-02-09 11:40] VITALS: BP 135/65
[2019-02-09] MEDS ORDERED: MONT10TA24 PO (13:18)
[2019-02-09] MEDS ORDERED: LORA10TA7 PO (13:18)
[2019-02-09] MEDS ORDERED: PRED10TA22 PO (13:18)
--- NOTE | 2019-02-09 13:18 | Discharge Summary ---
Discharge Summary Hospital Course Was the Problem List Reviewed?: Yes Problems/Dx: (1) COPD with exacerbation Status: Acute (2) Acute and chronic respiratory failure with hypercapnia Status: Acute (3) RESPIRATORY FAILURE, UNSP, UNSP W HYPOXIA OR HYPERCAPNIA Status: Chronic (4) DVT prophylaxis Status: Acute (5) Smoker Status: Acute Hospital Course Date of Admission: Feb 06, 2019 at 00:20 Admission Diagnosis : Family Physician/Provider: Maximiliano Nelson Date of Discharge: 02/09/19 Discharge Diagnosis: Exacerbation of COPD, current smoker, hypoxia, hypercapnia Hospital Course: Patient had a complex hospital course for 4 days placed in stepdown due to hypoxia and hypercapnia on ABG initially in the ER. Dr. Samson was consulted patient was aggressively treated with IV steroids and the addition of Singulair and Claritin. She required additional days of IV steroids due to the severity of her exacerbation of COPD while maintaining on her home oxygen maintenance 2 08/19. All labs remained stable patient was able to eat and drink ambulate without difficulties and wheezing have completely resolved at the time of discharge so smoking cessation was counseled to of close follow-up in one week with continued close monitoring. Labs and Pending Lab Test: Home Meds Active Reported Chantix (Varenicline Tartrate) 1 Each Tab.ds.pk PO UD DELIVERED 01-31-19 Tylenol Extra Strength (Acetaminophen) 500 Mg Tablet 500-1,000 Mg PO Q4H PRN Albuterol Sulfate 2.5 Mg/3 Ml Vial.neb 2.5 Mg NEB Q4H PRN Nystatin 100,000 Unit/1 Ml Oral.susp 4 Ml PO QID PRN Rosuvastatin Calcium 20 Mg Tablet 20 Mg PO HS Venlafaxine HCl ER (Venlafaxine HCl) 75 Mg Cap.er.24h 75 Mg PO 1000 Propranolol HCl 40 Mg Tablet 40 Mg PO BID Levothyroxine Sodium 175 Mcg Tablet 175 Mcg PO DAILY Trelegy Ellipta 100-62.5-25 (Fluticasone/Umeclidin/Vilanter) 1 Each Blst.w.dev 1 Puff INH DAILY Ventolin Hfa (Albuterol Sulfate) 18 Gm Hfa.aer.ad 2 Puff INH Q4H PRN Assessment/Pt Instructions PCP in one week Discharge Planning: <30 minutes discharge planning Discharge Instructions Discharge Diet: No Restrictions Activity as Tolerated: Yes Discharge Physical Examination Vital Signs Vital Signs Date Time Temp Pulse Resp B/P (MAP) Pulse Ox O2 Delivery O2 Flow Rate FiO2 02/09/19 11:40 36.9 66 20 135/65 (88) 95 Nasal Cannula 2.00 02/06/19 08:00 25 General Appearance: No Apparent Distress, WD/WN Respiratory: Chest Non Tender, Lungs Clear, Normal Breath Sounds, No Accessory Muscle Use, No Respiratory Distress Neurologic/Psychiatric: Alert, Oriented x3, No Motor/Sensory Deficits, Normal Mood/Affect Allergies: Coded Allergies: oxycodone HCl (Verified Adverse Reaction, Severe, BLACK OUT, 01/15/19) morphine (Verified Adverse Reaction, Intermediate, Blackout, 01/15/19) Discharge Summary Date of Admission Feb 06, 2019 at 00:20 Date of Discharge Discharge Date: Feb 09, 2019 Admission Diagnosis Assessment: AECOPD Smoker Plan: IV steroids Nebs O2 Discharge Diagnosis Assessment: AECOPD Smoker Hypoxia Hypercapnia Plan: Possible DC soon (1) COPD with exacerbation Status: Acute (2) Acute and chronic respiratory failure with hypercapnia Status: Acute (3) RESPIRATORY FAILURE, UNSP, UNSP W HYPOXIA OR HYPERCAPNIA Status: Chronic (4) DVT prophylaxis Status: Acute (5) Smoker Status: Acute Clinical Quality Measures DVT/VTE Risk/Contraindication: Risk Factor Score Per Nursin RFS Level Per Nursing on Admit: 4+=Very High JAGDEEP HAYNES DO Feb 09, 2019 13:18
[2019-02-09 16:00] VITALS: BP 180/92
--- NOTE | 2019-02-09 17:10 | NUR ---
MICHAEL MARK demonstrates understanding of discharge instructions and accurately returns instructions upon questioning. Copy of Post-Discharge Instructions given to PT. MICHAEL MARK is ABLE to manage continuing needs after discharge. Patients belongings returned to PT. Patient discharged from [facility]- on 02/09/19 at 1710. MICHAEL MARK left floor via W/C, accompanied by STAFF AND W/C WITH DAUGHTER PER AUTO.
== END 2019-02-09 17:10 | disposition home or self-care (01) | DRG 189 ==
LOC: EDUNIT# 22:35 → ER 22:36 → ICU 02-06 00:20 → 4TH 02-06 10:00
PROVIDERS: ADMIT Internal Medicine; ATTEND Internal Medicine
DX: J96.22 Acute and chronic respiratory failure with hypercapnia (principal); J43.9 Emphysema, unspecified; E87.2 Acidosis; C50.912 Malignant neoplasm of unspecified site of left female breast; C85.90 Non-Hodgkin lymphoma, unspecified, unspecified site; I10 Essential (primary) hypertension; E87.5 Hyperkalemia; E03.9 Hypothyroidism, unspecified; K21.9 Gastro-esophageal reflux disease without esophagitis; K44.9 Diaphragmatic hernia without obstruction or gangrene; M47.816 Spondylosis without myelopathy or radiculopathy, lumbar region; F41.9 Anxiety disorder, unspecified; E78.00 Pure hypercholesterolemia, unspecified; Z87.891 Personal history of nicotine dependence
CPT/HCPCS: 36415; 36600; 71045; 71260; 80053; 82805; 83735; 83880; 85007; 85025; 85027; 86141; 94640; 94760; 96361; 96365; 96375

== ENCOUNTER 2019-05-07 02:13 | Emergency (ER) | payer MEDICARE ==
[~2019-05-07] VITALS: Ht 157 cm; Wt 56.0 kg
[~2019-05-07 02:13] MED LIST changes: +ACET-2267 PO; +LEVO175T5 PO; +LORA10TA7 PO; +MONT10TA24 PO; +NYST1000 PO; +PROP40TA5 PO; +ROSU20TA32 PO; +VARE1TAB21 PO; +VENL75CA93 PO
[2019-05-07] MEDS ORDERED: RT-ALBUTEROL SULF 2.5 MG/3 ML PRE-MIX VIAL INH STA ×2 (02:22→02:36)
[2019-05-07] MEDS ORDERED: methylPREDNISolone 125 MG (Solu-MEDROL) VIAL IV STA (02:22)
[2019-05-07] MEDS ORDERED: RT-ALBUTEROL/IPRATROPIUM 3 ML (DUONEB) VIAL INH ONE (02:30)
[2019-05-07] MEDS ORDERED: DEXAMETHASONE 4 MG/ML SDV (DECADRON) IH ONE (02:30)
[2019-05-07 02:43] LABS: BASOPHILS % (AUTO) 0 % (0-10); EOSINOPHILS # (AUTO) 0.5 10^3/uL (0.0-0.3); EOSINOPHILS % (AUTO) 5 % (0-10); HEMATOCRIT 43 % (35-52); HEMOGLOBIN 13.7 G/DL (11.5-16.0); LYMPHOCYTES % (AUTO) 19 % (12-44); MEAN CORPUSCULAR HEMOGLOBIN 29 PG (25-34); MEAN CORPUSCULAR HGB CONC 32 G/DL (32-36); MEAN CORPUSCULAR VOLUME 89 FL (80-99); MONOCYTES # (AUTO) 0.8 X 10^3 (0.0-1.0); MONOCYTES % (AUTO) 7 % (0-12); NEUTROPHILS # (AUTO) 7.3 X 10^3 (1.8-7.8); NEUTROPHILS % (AUTO) 68 % (42-75); PLATELET COUNT 313 10^3/uL (130-400); RED CELL DISTRIBUTION WIDTH 13.9 % (10.0-14.5); WHITE BLOOD COUNT 10.7 10^3/uL (4.3-11.0)
[2019-05-07 02:54] LABS: INR 0.8 (0.8-1.4); PROTHROMBIN TIME PATIENT 11.8 SEC (12.2-14.7)
[2019-05-07] MEDS ORDERED: LORazepam INJ 2 MG/ML (ATIVAN) VIAL IVP ONE (03:00)
[2019-05-07 03:05] LABS: ALANINE AMINOTRANSFERASE 14 U/L (0-55); ALBUMIN 4.3 GM/DL (3.2-4.5); ALKALINE PHOSPHATASE 120 U/L (40-136); BILIRUBIN,TOTAL 0.1 MG/DL (0.1-1.0); BUN/CREATININE RATIO 23; CALCIUM 9.4 MG/DL (8.5-10.1); CARBON DIOXIDE 22 MMOL/L (21-32); CHLORIDE 107 MMOL/L (98-107); CREATINE KINASE 68 U/L (29-168); CREATININE SERUM 0.61 MG/DL (0.60-1.30); GFR ESTIMATED > 60; GLUCOSE 112 MG/DL (70-105); MAGNESIUM 1.9 MG/DL (1.6-2.4); POTASSIUM 4.7 MMOL/L (3.6-5.0); SODIUM 140 MMOL/L (135-145); TOTAL PROTEIN 6.8 GM/DL (6.4-8.2)
[2019-05-07 03:12] LABS: ABG PCO2 46 MMHG (35-45); ABG PO2 163 MMHG (79-93); ABG TCO2 25.6 MMOL/L (21.0-31.0)
[2019-05-07 03:21] LABS: ALLENS TEST POSITIVE; INSPIRED O2 VAPOTHERMR 20L 60%FI; PATIENT TEMP 36.5; VENTILATOR NO
[2019-05-07 03:22] LABS: ABG PH 7.34 (7.37-7.43)
[2019-05-07 03:24] LABS: TSH (THYROID ANALYZER) 8.33 UIU/ML (0.35-4.94)
[2019-05-07 03:30] LABS: CREATINE KINASE MB 8.2 NG/ML (<6.6)
[2019-05-07] MEDS ORDERED: cefTRIAXone FOR IV USE 1,000 MG in WATER (STERILE) FOR INJECTION 10 ML IV ONE (03:30)
[2019-05-07] MEDS ORDERED: AZITHROMYCIN INJECTION 500 MG in NS (IVPB) 250 ML IV ONE (03:30)
[2019-05-07 03:35] LABS: BILIRUBIN,URINE NEGATIVE (NEGATIVE); CLARITY,URINE CLEAR; COLOR,URINE YELLOW; GLUCOSE, URINE (UA) NEGATIVE (NEGATIVE); KETONES,URINE NEGATIVE (NEGATIVE); LEUKOCYTE ESTERASE ,URINE NEGATIVE (NEGATIVE); NITRITE,URINE NEGATIVE (NEGATIVE); PH,URINE 5.5 (5-9); PROTEIN,URINE NEGATIVE (NEGATIVE)
--- NOTE | 2019-05-07 03:49 | ED Respiratory ---
General Chief Complaint: Respiratory Problems Stated Complaint: COPD,SOB Source: patient, EMS, old records History of Present Illness Date Seen by Provider: May 07, 2019 Time Seen by Provider: 02:13 Initial Comments PT ARRIVES VIA EMS FROM HOME PT WITH COPD AND IS O2 DEPENDENT AT 2L/NC PT CONTINUES TO SMOKE 2 PPD, SINCE THE AGE OF 14. PT HAS HAD INCREASED SHORTNESS OF BREATH SINCE YESTERDAY MORNING HAS HAD A PRODUCTIVE COUGH FOR THE LAST FEW DAYS NO FEVER/SWEATS/CHILLS NO CHEST PAIN + SWELLING IN LEGS/FEET. NO CALF PAIN PT HAS HAD 4 NEB TREATMENTS TODAY, THE LAST ONE WAS 4 HOURS PRIOR TO CALLING EMS EMS REPORT THAT PT'S O2 SAT DROPPED TO 79% IN LESS THAN A MINUTE WHEN ON ROOM AIR EMS INITIATED A DUONEB TREATMENT AND SATS UP TO MID 90'S, BUT STILL WITH SIGNIFICANT LABORED BREATHING EMS GAVE SOLU-MEDROL 125 MG WELL. PT HAS BEEN HERE 8 TIMES SINCE JULY IF THIS YEAR, FOR SAME COMPLAINT. LAST VISIT WAS IN . PT STATES SHE HAS NOT BEEN ON RECENT ANTIBIOTICS OR STEROIDS PT ADAMANTLY REFUSES TO BE PLACED ON BIPAP AND ADAMANTLY REFUSES TO BE INTUBATED/PLACED ON VENTILATOR. PT HAS BEEN PLACED ON VAPOTHERM ON PREVIOUS ADMITS. PT HAS LONG HISTORY OF NON-COMPLIANCE PCP: [facility], SERG DELGADO DIGITAL TECHNICIAN: DR. ELIZABETH Allergies and Home Medications Allergies Coded Allergies: oxycodone HCl (Verified Adverse Reaction, Severe, BLACK OUT, 01/15/19) morphine (Verified Adverse Reaction, Intermediate, Blackout, 01/15/19) Home Medications Acetaminophen 500 Mg Tablet, 500-1,000 MG PO Q4H PRN for PAIN-MILD, (Reported) Albuterol Sulfate 18 Gm Hfa.aer.ad, 2 PUFF INH Q4H PRN for SHORTNESS OF BREATH, (Reported) Albuterol Sulfate 2.5 Mg/3 Ml Vial.neb, 2.5 MG NEB Q4H PRN for SHORTNESS OF BREATH, (Reported) Fluticasone/Umeclidin/Vilanter 1 Each Blst.w.dev, 1 PUFF INH DAILY, (Reported) Levothyroxine Sodium 175 Mcg Tablet, 175 MCG PO DAILY, (Reported) Loratadine 10 Mg Tablet, 10 MG PO DAILY Prescribed by: JAGDEEP HAYNES on 9/28/19 1318 Montelukast Sodium 10 Mg Tablet, 10 MG PO HS Prescribed by: JAGDEEP HAYNES on 02/09/191317 Nystatin 100,000 Unit/1 Ml Oral.susp, 4 ML PO QID PRN for THRUSH, (Reported) Prednisone 10 Mg Tab.ds.pk, 10 MG PO DAILY Take 6 tabs(60mg)daily,decrease by 1 tab(10MG)daily. Prescribed by: JAGDEEP HAYNES on 02/09/191317 Propranolol HCl 40 Mg Tablet, 40 MG PO BID, (Reported) Rosuvastatin Calcium 20 Mg Tablet, 20 MG PO HS, (Reported) Varenicline Tartrate 1 Each Tab.ds.pk, PO UD, (Reported) DELIVERED 01-31-19 Venlafaxine HCl 75 Mg Cap.er.24h, 75 MG PO 1000, (Reported) Patient Home Medication List Home Medication List Reviewed: Yes Review of Systems Review of Systems Constitutional: No fever Respiratory: see HPI, cough, short of breath, wheezing Cardiovascular: see HPI; No chest pain; edema; No syncope Gastrointestinal: no symptoms reported Musculoskeletal: no symptoms reported Skin: no symptoms reported Psychiatric/Neurological: Anxiety Past Kcpuaow-Zwvtyf-Huviqb Hx Past Med/Social Hx: Reviewed and Corrections made Patient Social History Alcohol Use: Past History (HISTORY OF ABUSE, CLAIMS NONE FOR YEARS) Recreational Drug Use: Yes (HX OF METH USE--DENIES IV USE) Drug of Choice: HX OF METH USE--DENIES IV USE Smoking Status: Current Everyday Smoker (2 PPD) Type Used: Cigarettes (2 PPD) 2nd Hand Smoke Exposure: Yes Recent Foreign Travel: No Contact w/Someone Who Travel: No Recent Hopitalizations: No Immunizations Up To Date Tetanus Booster (TDap): Less than 5yrs Date of Pneumonia Vaccine: Jan 14, 2012 Date of Influenza Vaccine: May 15, 2018 Seasonal Allergies Seasonal Allergies: No Past Medical History Surgeries: Yes (BILAT CARPAL TUNNEL;L BREAST LUMPECTOMY; HIATAL HERNIA REPAIR; HAND SURGERY) Abdominal, Appendectomy, Breast, Orthopedic (BILATERAL CARPAL TUNNEL; HAND SURGERY; RIGHT SHOULDER SURGERY), Tubal Ligation Respiratory: Yes Chronic Bronchitis, COPD Cardiac: Yes (CAROTID ARTERY DISEASE) High Cholesterol, Hypertension, Peripheral Vascular Neurological: No 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: No CHIEF OF SURGERY History: Menopausal Sexually Transmitted Disease: No Genitourinary: No Gastrointestinal: Yes (S/P HIATAL HERNIA REPAIR) Gastroesophageal Reflux, Hiatal Hernia Musculoskeletal: Yes (CHRONIC BACK PAIN; RIGHT SHOULDER SURGERY; BILAT CARPAL TUNNEL;HAND SURGERY) Degenerate Disk Disease, Arthritis, Chronic Back Pain Endocrine: Yes Hypothyroidsim HEENT: No Cancer: Yes (L BREAST CA 2003--S/P LUMPECTOMY/CHEMO/RAD-4 MONTHS LATER DEV. 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 0.0oz. [id number]; 21.98 BMI Method:Stated General Appearance: severe distress, other (SEVERE DISTRESS--SEVERELY DYSPNEIC, AND IN TRIPOD POSITION, YET TALKS NON-STOP AT LENGTH IN 4-6 WORD SENTENCES. ANXIOUS, REEKS OF CIGARETTES. FREQUENT LOOSE COUGH. ) HEENT: PERRL/EOMI Neck: normal inspection Respiratory: respiratory distress, decreased breath sounds (DECREASED AERATION IN ALL LUNG JOHNSON), accessory muscle use, other (SEVERE DISTRESS, MARKEDLY LABORED BREATHING, DIFFUSE WHEEZING--AUDIBLE FROM OUTSIDE THE DOORWAY. ) Cardiovascular: no murmur, tachycardia (110'S) Gastrointestinal: soft Extremities: pedal edema (TRACE BILATERALLY) Neurologic/Psychiatric: no motor/sensory deficits, alert, oriented x 3, other (ANXIOUS) Skin: normal color, warm/dry Focused Exam Lactate Level 05/07/19 02:30: Lactic Acid Level 1.67 Lactic Acid Level Laboratory Tests Test 05/07/19 02:30 Lactic Acid Level 1.67 MMOL/L (0.50-2.00) Progress/Results/Core Measures Suspected Sepsis SIRS Temperature: Pulse: Respiratory Rate: Laboratory Tests 05/07/19 02:30: White Blood Count 10.7 Blood Pressure / Mean: 05/07/19 02:30: Lactic Acid Level 1.67 Laboratory Tests 05/07/19 02:30: Creatinine 0.61, INR Comment 0.8, Platelet Count 313, Total Bilirubin 0.1 Results/Orders Lab Results Laboratory Tests Test 05/07/19 02:30 05/07/19 03:05 05/07/19 03:28 Range/Units White Blood Count 10.7 4.3-11.0 10^3/uL Red Blood Count 4.81 4.35-5.85 10^6/uL Hemoglobin 13.7 11.5-16.0 G/DL Hematocrit 43 35-52 % Mean Corpuscular Volume 89 80-99 FL Mean Corpuscular Hemoglobin 29 25-34 PG Mean Corpuscular Hemoglobin Concent 32 32-36 G/DL Red Cell Distribution Width 13.9 10.0-14.5 % Platelet Count 313 130-400 10^3/uL Mean Platelet Volume 10.0 7.4-10.4 FL Neutrophils (%) (Auto) 68 42-75 % Lymphocytes (%) (Auto) 19 12-44 % Monocytes (%) (Auto) 7 0-12 % Eosinophils (%) (Auto) 5 0-10 % Basophils (%) (Auto) 0 0-10 % Neutrophils # (Auto) 7.3 1.8-7.8 X 10^3 Lymphocytes # (Auto) 2.0 1.0-4.0 X 10^3 Monocytes # (Auto) 0.8 0.0-1.0 X 10^3 Eosinophils # (Auto) 0.5 H 0.0-0.3 10^3/uL Basophils # (Auto) 0.0 0.0-0.1 10^3/uL Prothrombin Time 11.8 L 12.2-14.7 SEC INR Comment 0.8 0.8-1.4 Activated Partial Thromboplast Time 28 24-35 SEC Sodium Level 140 135-145 MMOL/L Potassium Level 4.7 3.6-5.0 MMOL/L Chloride Level 107 98-107 MMOL/L Carbon Dioxide Level 22 21-32 MMOL/L Anion Gap 11 5-14 MMOL/L Blood Urea Nitrogen 14 7-18 MG/DL Creatinine 0.61 0.60-1.30 MG/DL Estimat Glomerular Filtration Rate > 60 BUN/Creatinine Ratio 23 Glucose Level 112 H 70-105 MG/DL Lactic Acid Level 1.67 0.50-2.00 MMOL/L Calcium Level 9.4 8.5-10.1 MG/DL Corrected Calcium 9.2 8.5-10.1 MG/DL Magnesium Level 1.9 1.6-2.4 MG/DL Total Bilirubin 0.1 0.1-1.0 MG/DL Aspartate Amino Transf (AST/SGOT) 17 5-34 U/L Alanine Aminotransferase (ALT/SGPT) 14 0-55 U/L Alkaline Phosphatase 120 40-136 U/L Total Creatine Kinase 68 29-168 U/L Creatine Kinase MB 8.2 *H <6.6 NG/ML Myoglobin 36.9 10.0-92.0 NG/ML Troponin I < 0.028 <0.028 NG/ML B-Type Natriuretic Peptide < 10.0 <100.0 PG/ML Total Protein 6.8 6.4-8.2 GM/DL Albumin 4.3 3.2-4.5 GM/DL Free Thyroxine 0.76 0.70-1.48 NG/DL TSH [place] Testing 8.33 H 0.35-4.94 UIU/ML Serum Alcohol < 10 <10 MG/DL Blood Gas Puncture Site LEFT RADIAL Blood Gas Patient Temperature 36.5 Arterial Blood pH 7.34 *L 7.37-7.43 Arterial Blood Partial Pressure CO2 46 H 35-45 MMHG Arterial Blood Partial Pressure O2 163 H 79-93 MMHG Arterial Blood HCO3 24 23-27 MMOL/L Arterial Blood Total CO2 25.6 21.0-31.0 MMOL/L Arterial Blood Oxygen Saturation 94-100 % Arterial Blood Base Excess -1.0 -2.5-2.5 MMOL/L Robby Test POSITIVE Blood Gas Ventilator Setting NO Blood Gas Inspired Oxygen VAPOTHERMR 20L 60%FI Urine Color YELLOW Urine Clarity CLEAR Urine pH 5.5 5-9 Urine Specific Turner >=1.030 1.016-1.022 Urine Protein NEGATIVE NEGATIVE Urine Glucose (UA) NEGATIVE NEGATIVE Urine Ketones NEGATIVE NEGATIVE Urine Nitrite NEGATIVE NEGATIVE Urine Bilirubin NEGATIVE NEGATIVE Urine Urobilinogen 0.2 < = 1.0 MG/DL Urine Leukocyte Esterase NEGATIVE NEGATIVE Urine RBC (Auto) NEGATIVE NEGATIVE Urine RBC NONE /HPF Urine WBC NONE /HPF Urine Squamous Epithelial Cells RARE /HPF Urine Crystals NONE /LPF Urine Bacteria FEW H /HPF Urine Casts PRESENT /LPF Urine Hyaline Casts 0-2 H /LPF Urine Mucus NEGATIVE /LPF Urine Culture Indicated NO Urine Opiates Screen NEGATIVE NEGATIVE Urine Oxycodone Screen NEGATIVE NEGATIVE Urine Methadone Screen NEGATIVE NEGATIVE Urine Propoxyphene Screen NEGATIVE NEGATIVE Urine Barbiturates Screen NEGATIVE NEGATIVE Ur Tricyclic Antidepressants Screen NEGATIVE NEGATIVE Urine Phencyclidine Screen NEGATIVE NEGATIVE Urine Amphetamines Screen POSITIVE H NEGATIVE Urine Methamphetamines Screen NEGATIVE NEGATIVE Urine Benzodiazepines Screen NEGATIVE NEGATIVE Urine Cocaine Screen NEGATIVE NEGATIVE Urine Cannabinoids Screen NEGATIVE NEGATIVE Micro Results Microbiology 05/07/19 Influenza Types A,B Antigen (RAEANN) - Final, Complete My Orders Orders - DAWSON ALVARADO DO Ed Iv/Invasive Line Start (05/07/19 02:22) Ekg Tracing (05/07/19 02:22) Catheter(Urinary) Insert & Ass 03,15 (05/07/19 02:22) O2 (05/07/19 02:22) Monitor-Rhythm Ecg Trace Only (05/07/19 02:22) Chest 1 View, Ap/Pa Only (05/07/19 02:22) Alcohol (05/07/19 02:22) Arterial Blood Gas (05/07/19 03:05) BNP (05/07/19 02:22) Cbc With Automated Diff (05/07/19 02:22) Comprehensive Metabolic Panel (05/07/19 02:22) Creatine Kinase (05/07/19 02:22) Creatine Kinase Mb (05/07/19 02:22) Drug Screen Stat (Urine) (05/07/19 02:22) Lactic Acid Analyzer (05/07/19 02:22) Magnesium (05/07/19 02:22) Protime With Inr (05/07/19 02:22) Partial Thromboplastin Time (05/07/19 02:22) Thyroid Analyzer (05/07/19 02:22) Ua Culture If Indicated (05/07/19 02:22) Blood Culture (05/07/19 02:22) Influenza A And B Antigens (05/07/19 02:22) Myoglobin Serum (05/07/19 02:22) Troponin I (05/07/19 02:22) Albuterol Pre-Mix Nebs (Rt) (Proventil (05/07/19 02:22) Albuterol/Ipra Inhalation Soln (Duoneb I (05/07/19 02:30) Dexamethasone Injection (Decadron Inject (05/07/19 02:30) Rt Request For Service (05/07/19 02:22) Methylprednisolone Sod Succ (Solu-Medrol (05/07/19 02:22) Svn Small Volume Nebulizer (05/07/19 02:22) Svn Small Volume Nebulizer (05/07/19 02:22) Albuterol Pre-Mix Nebs (Rt) (Proventil (05/07/19 02:36) Lorazepam Injection (Ativan Injection) (05/07/19 03:00) Free T4 (Free Thyroxine) (05/07/19 02:30) Ceftriaxone For Iv Use (Rocephin For I (05/07/19 03:30) Azithromycin Injection (Zithromax Inject (05/07/19 03:30) Medications Given in ED Current Medications Medications Dose Ordered Sig/Phani Route Start Time Stop Time Status Last Admin Dose Admin Albuterol/ Ipratropium 3 ml ONCE ONCE INH 05/07/19 02:30 05/07/19 02:31 DC 05/07/19 03:17 3 ML Azithromycin 500 mg/Sodium Chloride 250 ml @ 250 mls/hr ONCE ONCE IV 05/07/19 03:30 05/07/19 04:29 DC 05/07/19 04:38 250 MLS/HR Ceftriaxone Sodium 1000 mg/ Sterile Water 10 ml @ 200 mls/hr ONCE ONCE IV 05/07/19 03:30 05/07/19 03:32 DC 05/07/19 04:36 200 MLS/HR Dexamethasone Sodium Phosphate 20 mg ONCE ONCE IH 05/07/19 02:30 05/07/19 02:31 DC 05/07/19 03:17 20 MG Vital Signs/I&O 05/07/19 05/07/19 05/07/19 05/07/19 02:13 02:19 03:18 03:20 Temp 36.5 Pulse 115 Resp 32 B/P (MAP) 139/119 (126) Pulse Ox 100 98 O2 Delivery Non Rebreather Non Rebreather Vapotherm O2 Flow Rate 15.00 15.00 FiO2 30 05/07/19 04:45 Temp 36.5 Pulse 110 Resp 25 B/P (MAP) 124/79 (126) Pulse Ox 94 O2 Delivery Vapotherm O2 Flow Rate 20.00 Capillary Refill : Progress Note : Progress Note PT ADAMANTLY REFUSES BIPAP, AND IS INITIALLY VERY UNCOOPERATIVE, YET TALKING NON-STOP--PT ADVISED THAT SHE COULD IF SHE DID NOT IMPROVE AND YET SHE CONTINUES TO REFUSE BIPAP AND INTUBATION/VENTILATOR PT PLACED ON VAPOTHERM, WITH O2 SATS IN UPPER 90'S TO 100%. PT GIVEN SMALL DOSE OF ATIVAN FOR AGITATION PT EVENTUALLY ABLE TO LAY BACK ON ER CART GIVEN HOUR LONG DUO NEB, AND ADDITIONAL SOLU-MEDROL PT STILL WITH SOME LABORED BREATHING, AND RESIDUAL WHEEZING, BUT IS NO LONGER AUDIBLE WHEEZING FROM THE DOORWAY--NOW WHEEZING IS ONLY HEARD WITH STETHOSCOPE. INCREASED AERATION. NO DETERIORATION IN PT'S CONDITION DURING ER STAY VITALS STABLE. ECG Initial ECG Impression Date: May 07, 2019 Initial ECG Impression Time: 02:54 Initial ECG Rate: 115 Initial ECG Rhythm: S.Tach Initial ECG Impression: Nonspecific Changes Initial ECG Comparisson: Unchanged Diagnostic Imaging Comments CXR--COPD CHANGES, NO ACUTE PROCESS, PENDING RADIOLOGIST REVIEW Reviewed: Reviewed by Me Critical Care Note Critical Care Total Time (minutes) 30 MINUTES Departure Communication (Admissions) THIS FACILITY IS ON ICU AND STEP DOWN DIVERS[facility] [id number]--CALLED [facility], PT PREFERENCE. [phone]--SPOKE WITH DR. TRACY, ACCEPTS PT FOR ADMIT. NO ADDITIONAL RECOMMENDATIONS AT THIS TIME. Impression Primary Impression: Acute on chronic respiratory failure Additional Impressions: COPD exacerbation UDS + FOR AMPHETAMINES Very heavy cigarette smoker (40 or more per day) Disposition: 02 XFER SHT-TRM HOSP Condition: Improved Transfer Transfer Reason: Diversion Transfer Facility: [facility] Method of Transfer: EMS Departure-Patient Inst. Referrals: [facility] (PCP) Primary Care Physician OUMOU DELGADO (Family) Primary Care Physician DAWSON ALVARADO DO May 07, 2019 03:49
[2019-05-07 03:53] LABS: BACTERIA,URINE FEW /HPF; HYALINE CASTS, URINE 0-2 /LPF; SQUAMOUS EPITHELIAL CELL,UR RARE /HPF
[2019-05-07 03:54] LABS: AMPHETAMINE SCREEN, URINE POSITIVE (NEGATIVE); BARBITURATE SCREEN URINE NEGATIVE (NEGATIVE); BENZODIAZEPINES SCREEN URINE NEGATIVE (NEGATIVE); CANNABINOID SCREEN, URINE NEGATIVE (NEGATIVE); COCAINE SCREEN URINE NEGATIVE (NEGATIVE); METHADONE STAT NEGATIVE (NEGATIVE); METHAMPHETAMINE SCREEN URINE S NEGATIVE (NEGATIVE); OPIATE SCREEN URINE NEGATIVE (NEGATIVE); OXYCODONE STAT NEGATIVE (NEGATIVE); PROPOXYPHENE STAT NEGATIVE (NEGATIVE); TRICYCLIC ANTIDEPRESSANTS SCRE NEGATIVE (NEGATIVE)
[2019-05-07 04:02] LABS: FREE T4 (FREE THYROXINE) 0.76 NG/DL (0.70-1.48)
[2019-05-07 04:45] VITALS: BP 124/79
--- NOTE | 2019-05-07 07:13 | Diagnostic Imaging Report ---
INDICATION: Cough, shortness of breath COMPARISON: 02/06/2019 FINDINGS: Single view of the chest demonstrates chronic interstitial changes. No acute infiltrates seen. There is no pneumothorax or effusion. The heart is normal. Osseous structures are age appropriate. IMPRESSION: No acute cardiopulmonary findings. Dictated by: Dictated on workstation # [id number]
== END 2019-05-07 04:45 | disposition short-term general hospital (02) ==
LOC: EDUNIT# 02:13 → ER 02:14
DX: J96.20 Acute and chronic respiratory failure, unspecified whether with hypoxia or hypercapnia (principal); J44.1 Chronic obstructive pulmonary disease with (acute) exacerbation; F15.10 Other stimulant abuse, uncomplicated; F12.10 Cannabis abuse, uncomplicated; F41.9 Anxiety disorder, unspecified; E78.00 Pure hypercholesterolemia, unspecified; I10 Essential (primary) hypertension; I73.9 Peripheral vascular disease, unspecified; K21.9 Gastro-esophageal reflux disease without esophagitis; E03.9 Hypothyroidism, unspecified; F17.210 Nicotine dependence, cigarettes, uncomplicated; Z85.3 Personal history of malignant neoplasm of breast; Z85.72 Personal history of non-Hodgkin lymphomas; Z88.6 Allergy status to analgesic agent; Z88.5 Allergy status to narcotic agent; Z79.51 Long term (current) use of inhaled steroids; Z79.52 Long term (current) use of systemic steroids; Z90.49 Acquired absence of other specified parts of digestive tract; Z98.51 Tubal ligation status
CPT/HCPCS: 36415; 51702; 71045; 80053; 80306; 80320; 81000; 82550; 82553; 82805; 83605; 83735; 83874; 83880; 84439; 84443; 84484; 85025; 85610; 85730; 87040; 87804; 93041; 94640; 94644; 94760; 96374; 96375

== ENCOUNTER 2019-06-13 18:55 | Inpatient (IN) | payer MEDICARE ==
[~2019-06-13] VITALS: Ht 157.5 cm; Wt 62.0 kg
[2019-06-13] MEDS ORDERED: methylPREDNISolone 125 MG (Solu-MEDROL) VIAL IV STA (18:57)
[2019-06-13] MEDS ORDERED: RT-ALBUTEROL/IPRATROPIUM 3 ML (DUONEB) VIAL INH ONE (19:00)
[2019-06-13] MEDS ORDERED: DEXAMETHASONE 4 MG/ML SDV (DECADRON) IH ONE (19:00)
[2019-06-13] MEDS ORDERED: RT-ALBUTEROL SULF 2.5 MG/3 ML PRE-MIX VIAL INH STA (19:06)
--- NOTE | 2019-06-13 19:06 | ED Respiratory ---
General Chief Complaint: Respiratory Problems Stated Complaint: SOA Nursing Triage Note: PT AMBULATE TO ROOM 04 WITH C/O SOB X3 DAYS. PT REPORTS SHE THOUGHT IT WOULD GET BETTER SO SHE DID NOT SEEK TX. Source: patient, old records History of Present Illness Date Seen by Provider: Jun 13, 2019 Time Seen by Provider: 18:57 Initial Comments PT ARRIVES VIA POV FROM HOME C/O SHORTNESS OF BREATH, CHRONIC PROBLEM, WORSE FOR THE LAST 3 DAYS--HAS NOT SOUGHT CARE UNTIL TONIGHT. PT HAS COPD AND IS O2 DEPENDENT AT /TX STATES SHE USED ALBUTEROL NEBULIZER 1 HOUR AGO WITHOUT RELIEF PT HAS SMOKED 2-3 PPD SINCE THE AGE OF 9 PT ALSO SMOKES METHAMPHETAMINE BY HISTORY, CLAIMS NO RECENT USE. C/O NON-PRODUCTIVE COUGH C/O CHILLS, BUT HAS NOT CHECKED TEMPT CHEST FEELS TIGHT DUE TO SHORTNESS OF BREATH NO SWELLING IN LEGS/ FEET OR PAIN IN CALVES PT HAS HAD MULTIPLE VISITS/ADMITS FOR THE SAME SEEN HERE 05/07/2019 FOR SAME, TRANSFERRED TO [facility] DUE TO THIS FACILITY BEING ON DIVERSION. PT HAS NOT FOLLOWED UP WITH ANYONE SINCE THEN PT HAS LONG HISTORY OF EXTREME NON-COMPLIANCE IN ALL ASPECTS OF CARE IS SUPPOSED TO BE ON MULTIPLE INHALERS, BUT DOES NOT USE ANYTHING EXCEPT ALBUTEROL INHALER AND NEBULIZER. PT HAS REPEATEDLY REFUSED TO BE ON BIPAP OR VENTILATOR/INTUBATED ON PREVIOUS ADMITS. PCP: DONNIE, SERG DELGADO NUMERICAL CONTROL DRILL PRESS OPERATOR: DR. ELIZABETH Allergies and Home Medications Allergies Coded Allergies: oxycodone HCl (Verified Adverse Reaction, Severe, BLACK OUT, 01/15/19) morphine (Verified Adverse Reaction, Intermediate, Blackout, 01/15/19) Home Medications Acetaminophen 500 Mg Tablet, 500-1,000 MG PO Q4H PRN for PAIN-MILD, (Reported) Albuterol Sulfate 18 Gm Hfa.aer.ad, 2 PUFF INH Q4H PRN for SHORTNESS OF BREATH, (Reported) Albuterol Sulfate 2.5 Mg/3 Ml Vial.neb, 2.5 MG NEB Q4H PRN for SHORTNESS OF BREATH, (Reported) Fluticasone/Umeclidin/Vilanter 1 Each Blst.w.dev, 1 PUFF INH DAILY, (Reported) Levothyroxine Sodium 175 Mcg Tablet, 175 MCG PO DAILY, (Reported) Loratadine 10 Mg Tablet, 10 MG PO DAILY Prescribed by: JAGDEEP HAYNES on 02/09/191317 Montelukast Sodium 10 Mg Tablet, 10 MG PO HS Prescribed by: JAGDEEP HAYNES on 02/09/191317 Nystatin 100,000 Unit/1 Ml Oral.susp, 4 ML PO QID PRN for THRUSH, (Reported) Prednisone 10 Mg Tab.ds.pk, 10 MG PO DAILY Take 6 tabs(60mg)daily,decrease by 1 tab(10MG)daily. Prescribed by: JAGDEEP HAYNES on 02/09/191317 Propranolol HCl 40 Mg Tablet, 40 MG PO BID, (Reported) Rosuvastatin Calcium 20 Mg Tablet, 20 MG PO HS, (Reported) Varenicline Tartrate 1 Each Tab.ds.pk, PO UD, (Reported) DELIVERED 01-31-19 Venlafaxine HCl 75 Mg Cap.er.24h, 75 MG PO 1000, (Reported) Patient Home Medication List Home Medication List Reviewed: Yes Review of Systems Review of Systems Constitutional: see HPI, chills EENTM: nose congestion Respiratory: see HPI, cough, dyspnea on exertion; No phlegm; short of breath, wheezing Cardiovascular: see HPI, chest pain; No edema, No palpitations, No syncope, No vascular heart diseas Gastrointestinal: no symptoms reported Genitourinary: no symptoms reported Musculoskeletal: no symptoms reported Skin: no symptoms reported Psychiatric/Neurological: No Symptoms Reported Hematologic/Lymphatic: No Symptoms Reported Immunological/Allergic: no symptoms reported Past Eimausc-Jjvqqf-Pmdqqq Hx Past Med/Social Hx: Reviewed and Corrections made Patient Social History Alcohol Use: Past History (HISTORY OF ABUSE, CLAIMS NO RECENT USE) Recreational Drug Use: Yes (METH USE--DENIES IV USE-- SMOKES IT. ) Drug of Choice: METH USE--DENIES IV USE--SMOKES IT Smoking Status: Current Everyday Smoker (2-3 PPD SINCE AGE 9) Type Used: Cigarettes (2-3 PPD SINCE AGE 9) 2nd Hand Smoke Exposure: Yes Recent Foreign Travel: No Contact w/Someone Who Travel: No Recent Infectious Disease Expo: No Recent Hopitalizations: No Physical Abuse: No Sexual Abuse: No Mistreated: No Fear: No Immunizations Up To Date Tetanus Booster (TDap): Less than 5yrs Date of Pneumonia Vaccine: Jan 14, 2012 Date of Influenza Vaccine: Feb 12, 2019 Seasonal Allergies Seasonal Allergies: No Past Medical History Surgeries: Yes (BILAT CARPAL TUNNEL;L BREAST LUMPECTOMY; HIATAL HERNIA REPAIR; HAND SURGERY) Abdominal, Appendectomy, Breast, Orthopedic, Tubal Ligation Respiratory: Yes (O2 DEPENDENT AT 2L/NC) Pneumonia, Chronic Bronchitis, COPD Cardiac: Yes (CAROTID ARTERY DISEASE) High Cholesterol, Hypertension, Peripheral Vascular Neurological: No 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: No 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 NON-H LYMPH) Breast, Lymphoma Did You Recieve Any Treatments: Yes What Type of Treatment Did You: Chemotherapy, Radiation, Surgical Intervention Psychosocial: Yes (POLYSUBSTANCE ABUSE) Anxiety Integumentary: No Blood Disorders: No Family Medical History PMH: -LEFT BREAST CANCER 2003--S/P LUMPECTOMY, CHEMO AND RADIATION; 4 MONTHS LATER, DEVELOPED NON-HODGKIN'S LYMPOMA--S/P CHEMOTHERAPY PSH: -BILATERAL CARPAL TUNNEL -HAND SURGERY -RIGHT SHOULDER SURGERY. -HIATAL HERNIA REPAIR -LEFT BREAST LUMPECTOMY -BTL -APPENDECTOMY Physical Exam Vital Signs - First Documented 06/13/19 06/13/19 18:57 19:10 Temp 36.6 Pulse 122 Resp 24 B/P (MAP) 175/141 (152) Pulse Ox 96 O2 Delivery Nasal Cannula O2 Flow Rate 2.00 FiO2 9 Capillary Refill : Less Than 3 Seconds Height: 5'2.00" Weight: 117lbs. 0.0oz. 53.429392ii; 23.00 BMI Method:Stated General Appearance: moderate distress, thin, other (TALKS IN SHORT SENTENCES. REEKS OF CIGARETTES, UNKEMPT. ) HEENT: PERRL/EOMI Neck: normal inspection Respiratory: respiratory distress, decreased breath sounds, accessory muscle use (ABDOMINAL RETRACTIONS), wheezing, expiration, other (DECREASED AERATION IN ALL LUNG JOHNSON, WITH DIFFUSE EXPIRATORY WHEEZING IN ALL LUNG JOHNSON WITH PROLONGED EXHALATION) Cardiovascular: normal peripheral pulses, no edema, no JVD, no murmur; No JVD; tachycardia (100-110) Gastrointestinal: non tender, soft, no organomegaly Extremities: normal inspection, no pedal edema, no calf tenderness, normal capillary refill Neurologic/Psychiatric: gravity prospecting observer helper II-XII nml as tested, no motor/sensory deficits, alert, oriented x 3, other (ANXIOUS) Focused Exam Lactate Level 06/13/19 19:05: Lactic Acid Level 1.11 Lactic Acid Level Laboratory Tests Test 06/13/19 19:05 Lactic Acid Level 1.11 MMOL/L (0.50-2.00) Progress/Results/Core Measures Suspected Sepsis Recent Fever Within 48 Hours: No Infection Criteria Present: None New/Unexplained Altered Menta: No Sepsis Screen: No Definite Risk SIRS Temperature: Pulse: 122 Respiratory Rate: 24 Laboratory Tests 06/13/19 19:05: White Blood Count 12.3H Blood Pressure 175 /141 Mean: 152 06/13/19 19:05: Lactic Acid Level 1.11 Laboratory Tests 06/13/19 19:05: Creatinine 0.61, INR Comment 0.9, Platelet Count 409H, Total Bilirubin 0.2 Results/Orders Lab Results Laboratory Tests Test 06/13/19 19:05 06/13/19 19:33 Range/Units White Blood Count 12.3 H 4.3-11.0 10^3/uL Red Blood Count 5.35 4.35-5.85 10^6/uL Hemoglobin 15.1 11.5-16.0 G/DL Hematocrit 48 35-52 % Mean Corpuscular Volume 90 80-99 FL Mean Corpuscular Hemoglobin 28 25-34 PG Mean Corpuscular Hemoglobin Concent 32 32-36 G/DL Red Cell Distribution Width 13.9 10.0-14.5 % Platelet Count 409 H 130-400 10^3/uL Mean Platelet Volume 9.6 7.4-10.4 FL Neutrophils (%) (Auto) 65 42-75 % Lymphocytes (%) (Auto) 19 12-44 % Monocytes (%) (Auto) 9 0-12 % Eosinophils (%) (Auto) 7 0-10 % Basophils (%) (Auto) 0 0-10 % Neutrophils # (Auto) 8.0 H 1.8-7.8 X 10^3 Lymphocytes # (Auto) 2.3 1.0-4.0 X 10^3 Monocytes # (Auto) 1.1 H 0.0-1.0 X 10^3 Eosinophils # (Auto) 0.9 H 0.0-0.3 10^3/uL Basophils # (Auto) 0.0 0.0-0.1 10^3/uL Prothrombin Time 12.2 12.2-14.7 SEC INR Comment 0.9 0.8-1.4 Activated Partial Thromboplast Time 27 24-35 SEC Sodium Level 142 135-145 MMOL/L Potassium Level 4.2 3.6-5.0 MMOL/L Chloride Level 107 98-107 MMOL/L Carbon Dioxide Level 22 21-32 MMOL/L Anion Gap 13 5-14 MMOL/L Blood Urea Nitrogen 14 7-18 MG/DL Creatinine 0.61 0.60-1.30 MG/DL Estimat Glomerular Filtration Rate > 60 BUN/Creatinine Ratio 23 Glucose Level 112 H 70-105 MG/DL Lactic Acid Level 1.11 0.50-2.00 MMOL/L Calcium Level 9.9 8.5-10.1 MG/DL Corrected Calcium 9.6 8.5-10.1 MG/DL Magnesium Level 1.8 1.6-2.4 MG/DL Total Bilirubin 0.2 0.1-1.0 MG/DL Aspartate Amino Transf (AST/SGOT) 17 5-34 U/L Alanine Aminotransferase (ALT/SGPT) 16 0-55 U/L Alkaline Phosphatase 89 40-136 U/L Total Creatine Kinase 29 29-168 U/L Creatine Kinase MB 3.2 <6.6 NG/ML Troponin I < 0.028 <0.028 NG/ML B-Type Natriuretic Peptide 11.5 <100.0 PG/ML Total Protein 7.2 6.4-8.2 GM/DL Albumin 4.4 3.2-4.5 GM/DL Free Thyroxine 0.88 0.70-1.48 NG/DL TSH Price Testing 7.31 H 0.35-4.94 UIU/ML Serum Alcohol < 10 <10 MG/DL Blood Gas Puncture Site RIGHT BRACHIAL Blood Gas Patient Temperature 36.6 Arterial Blood pH 7.33 *L 7.37-7.43 Arterial Blood Partial Pressure CO2 51 H 35-45 MMHG Arterial Blood Partial Pressure O2 93 79-93 MMHG Arterial Blood HCO3 26 23-27 MMOL/L Arterial Blood Total CO2 28.0 21.0-31.0 MMOL/L Arterial Blood Oxygen Saturation 98 94-100 % Arterial Blood Base Excess 1.1 -2.5-2.5 MMOL/L Robby Test POSITIVE Blood Gas Ventilator Setting NO Blood Gas Inspired Oxygen 2L Micro Results Microbiology 06/13/19 Influenza Types A,B Antigen (RAEANN) - Final, Complete My Orders Orders - DAWSON ALVARADO DO Ed Iv/Invasive Line Start (06/13/19 18:57) Ekg Tracing (06/13/19 18:57) O2 (06/13/19 18:57) Monitor-Rhythm Ecg Trace Only (06/13/19 18:57) Arterial Blood Gas (06/13/19 18:57) BNP (06/13/19 18:57) Cbc With Automated Diff (06/13/19 18:57) Comprehensive Metabolic Panel (06/13/19 18:57) Creatine Kinase (06/13/19 18:57) Creatine Kinase Mb (06/13/19 18:57) Magnesium (06/13/19 18:57) Protime With Inr (06/13/19 18:57) Partial Thromboplastin Time (06/13/19 18:57) Thyroid Analyzer (06/13/19 18:57) Blood Culture (06/13/19 18:57) Influenza A And B Antigens (06/13/19 18:57) Troponin I (06/13/19 18:57) Chest 1 View, Ap/Pa Only (06/13/19 18:57) Albuterol/Ipra Inhalation Soln (Duoneb I (06/13/19 19:00) Dexamethasone Injection (Decadron Inject (06/13/19 19:00) Rt Request For Service (06/13/19 18:57) Methylprednisolone Sod Succ (Solu-Medrol (06/13/19 18:57) Svn Small Volume Nebulizer (06/13/19 18:57) Albuterol Pre-Mix Nebs (Rt) (Proventil (06/13/19 19:06) Svn Small Volume Nebulizer (06/13/19 19:06) Free T4 (Free Thyroxine) (06/13/19 19:05) Medications Given in ED Current Medications Medications Dose Ordered Sig/Phani Route Start Time Stop Time Status Last Admin Dose Admin Albuterol/ Ipratropium 3 ml ONCE ONCE INH 06/13/19 19:00 06/13/19 19:01 DC 06/13/19 19:13 3 ML Dexamethasone Sodium Phosphate 20 mg ONCE ONCE IH 06/13/19 19:00 06/13/19 19:01 DC 06/13/19 19:23 20 MG Vital Signs/I&O 06/13/19 06/13/19 06/13/19 06/13/19 18:57 18:57 19:10 19:10 Temp 36.6 Pulse 122 Resp 24 B/P (MAP) 175/141 (152) Pulse Ox 96 96 97 O2 Delivery Nasal Cannula Nasal Cannula Nasal Cannula Nasal Cannula O2 Flow Rate 2.00 3.00 2.00 2.00 FiO2 9 06/13/19 19:25 Pulse Ox 98 O2 Delivery Nasal Cannula O2 Flow Rate 2.00 Capillary Refill : Less Than 3 Seconds Blood Pressure Mean: 152 Progress Note : Progress Note GIVEN SOLU-MEDROL GIVEN HOUR LONG DUO-NEB TREATMENT + DECADRON VIA NEBULIZER PT HAD INCREASED WORK OF BREATHING DURING TREATMENT, BUT ABLE TO MAINTAIN O2 SATS IN MID TO UPPER 90'S PT ADAMANTLY REFUSES BIPAP OR INTUBATION/VENTILATOR PT PLACED ON VAPOTHERM, AND GIVEN ATIVAN, WITH IMPROVEMENT IN SYMPTOMS WITH DECREASED WORK OF BREATHING PT WITH O2 SATS IN UPPER 90'S, AND INCREASED AERATION AND DECREASED WHEEZING AT TIME OF ADMIT. ECG Initial ECG Impression Date: Jun 13, 2019 Initial ECG Impression Time: 19:16 Initial ECG Rate: 119 Initial ECG Rhythm: S.Tach Initial ECG Impression: Nonspecific Changes (LEFT ATRIAL ENLARGEMENT; RIGHT VENTRICULAR HYPERTROPHY) Initial ECG Comparisson: Unchanged Diagnostic Imaging Comments CXR--CHRONIC CHANGES, NO ACUTE PROCESS, PER RADIOLOGIST REPORT AT 2006 Reviewed: Reviewed by Me Departure Communication (Admissions) 2008--SPOKE WITH DR. ELIZABETH, NUMERICAL CONTROL DRILL PRESS OPERATOR, AGREES WITH PLAN OF CARE. 2009--SPOKE WITH DR. HAYNES, HOSPITALIST ON FOR [facility]. ACCEPTS PT FOR ADMIT. ORDERS NOTED Impression Primary Impression: Acute on chronic respiratory failure Additional Impressions: COPD exacerbation Very heavy cigarette smoker (40 or more per day) Methamphetamine use Disposition: ADMITTED INPATIENT Condition: Improved Admissions Decision to Admit Reason: Admit from ER (General) Decision to Admit/Date: Jun 13, 2019 Time/Decision to Admit Time: 20:10 Departure-Patient Inst. Referrals: [facility] (PCP) Primary Care Physician OUMOU DELGADO (Family) Primary Care Physician DAWSON ALVARADO DO Jun 13, 2019 19:06
[2019-06-13 19:16] LABS: BASOPHILS % (AUTO) 0 % (0-10); EOSINOPHILS # (AUTO) 0.9 10^3/uL (0.0-0.3); EOSINOPHILS % (AUTO) 7 % (0-10); HEMATOCRIT 48 % (35-52); HEMOGLOBIN 15.1 G/DL (11.5-16.0); LYMPHOCYTES # (AUTO) 2.3 X 10^3 (1.0-4.0); LYMPHOCYTES % (AUTO) 19 % (12-44); MEAN CORPUSCULAR HEMOGLOBIN 28 PG (25-34); MEAN CORPUSCULAR HGB CONC 32 G/DL (32-36); MEAN CORPUSCULAR VOLUME 90 FL (80-99); MEAN PLATELET VOLUME 9.6 FL (7.4-10.4); MONOCYTES # (AUTO) 1.1 X 10^3 (0.0-1.0); MONOCYTES % (AUTO) 9 % (0-12); NEUTROPHILS % (AUTO) 65 % (42-75); PLATELET COUNT 409 10^3/uL (130-400); RED CELL DISTRIBUTION WIDTH 13.9 % (10.0-14.5); WHITE BLOOD COUNT 12.3 10^3/uL (4.3-11.0)
[2019-06-13 19:35] LABS: INR 0.9 (0.8-1.4); PROTHROMBIN TIME PATIENT 12.2 SEC (12.2-14.7)
[2019-06-13 19:39] LABS: ABG BASE EXCESS 1.1 MMOL/L (-2.5-2.5); ABG OXYGEN SATURATION 98 % (94-100); ABG PCO2 51 MMHG (35-45); ABG PO2 93 MMHG (79-93); ALLENS TEST POSITIVE; INSPIRED O2 2L; PATIENT TEMP 36.6; VENTILATOR NO
[2019-06-13 19:40] LABS: ABG PH 7.33 (7.37-7.43)
[2019-06-13 19:40] LABS: ALANINE AMINOTRANSFERASE 16 U/L (0-55); ALBUMIN 4.4 GM/DL (3.2-4.5); ALKALINE PHOSPHATASE 89 U/L (40-136); BILIRUBIN,TOTAL 0.2 MG/DL (0.1-1.0); BUN/CREATININE RATIO 23; CALCIUM 9.9 MG/DL (8.5-10.1); CARBON DIOXIDE 22 MMOL/L (21-32); CREATINE KINASE 29 U/L (29-168); CREATININE SERUM 0.61 MG/DL (0.60-1.30); GFR ESTIMATED > 60; GLUCOSE 112 MG/DL (70-105)
[2019-06-13 20:00] LABS: CREATINE KINASE MB 3.2 NG/ML (<6.6); TSH (THYROID ANALYZER) 7.31 UIU/ML (0.35-4.94)
--- NOTE | 2019-06-13 20:04 | Diagnostic Imaging Report ---
INDICATION: 63-year-old female with shortness of breath. COMPARISONS: 05/07/2019 FINDINGS: Single view of the chest shows a senescent chest with emphysematous changes and chronic parenchymal changes. No consolidations are seen. There is also bilateral lower lobe parenchymal scarring. There is bilateral apical pleural scarring. There is rightward scoliotic curvature of the lower thoracic spine. Soft tissues and bony thorax are grossly normal. Film is slightly underpenetrated. IMPRESSION: Chronic parenchymal changes primarily in the lower lobes as well as bilateral apical pleural scarring. No consolidations are seen. Dictated by: Dictated on workstation # [id number]
[2019-06-13] MEDS ORDERED: cefTRIAXone FOR IV USE 1,000 MG in WATER (STERILE) FOR INJECTION 10 ML IV ONE (20:15)
[2019-06-13] MEDS ORDERED: ENOXAPARIN 40 MG/0.4 ML (LOVENOX) SYR SC ONE (20:15)
[2019-06-13] MEDS ORDERED: LORazepam INJ 2 MG/ML (ATIVAN) VIAL IVP ONE (20:15)
[2019-06-13] MEDS ORDERED: AZITHROMYCIN INJECTION 500 MG in NS (IVPB) 250 ML IV ONE (20:15)
[2019-06-13 20:24] LABS: CHLORIDE 107 MMOL/L (98-107); MAGNESIUM 1.8 MG/DL (1.6-2.4); POTASSIUM 4.2 MMOL/L (3.6-5.0); SODIUM 142 MMOL/L (135-145); TOTAL PROTEIN 7.2 GM/DL (6.4-8.2)
[2019-06-13 20:45] LABS: FREE T4 (FREE THYROXINE) 0.88 NG/DL (0.70-1.48)
[2019-06-13 21:28] LABS: AMPHETAMINE SCREEN, URINE POSITIVE (NEGATIVE); BARBITURATE SCREEN URINE NEGATIVE (NEGATIVE); BENZODIAZEPINES SCREEN URINE NEGATIVE (NEGATIVE); CANNABINOID SCREEN, URINE NEGATIVE (NEGATIVE); COCAINE SCREEN URINE NEGATIVE (NEGATIVE); METHADONE STAT NEGATIVE (NEGATIVE); METHAMPHETAMINE SCREEN URINE S POSITIVE (NEGATIVE); OPIATE SCREEN URINE NEGATIVE (NEGATIVE); OXYCODONE STAT NEGATIVE (NEGATIVE); PROPOXYPHENE STAT NEGATIVE (NEGATIVE); TRICYCLIC ANTIDEPRESSANTS SCRE NEGATIVE (NEGATIVE)
[2019-06-13 21:29] LABS: BILIRUBIN,URINE NEGATIVE (NEGATIVE); CLARITY,URINE CLEAR; COLOR,URINE YELLOW; GLUCOSE, URINE (UA) NEGATIVE (NEGATIVE); KETONES,URINE NEGATIVE (NEGATIVE); LEUKOCYTE ESTERASE ,URINE NEGATIVE (NEGATIVE); NITRITE,URINE NEGATIVE (NEGATIVE); PROTEIN,URINE TRACE (NEGATIVE)
[2019-06-13 21:40] VITALS: BP 114/86
[2019-06-13] MEDS ORDERED: ONDANSETRON 4 MG/2 ML (SDV) Z0FRAN IV PRN (21:45)
[2019-06-13] MEDS ORDERED: LORazepam INJ 2 MG/ML (ATIVAN) VIAL IV PRN (21:45)
[2019-06-13] MEDS ORDERED: fentaNYL INJECTION 100 MCG/2 ML AMP IV PRN (21:45)
[2019-06-13 21:57] LABS: BACTERIA,URINE NEGATIVE /HPF
[2019-06-13 21:58] LABS: AMORPHOUS SEDIMENT,UR MOD AMOR URATES /LPF
[2019-06-13 22:00] VITALS: BP 119/84
[2019-06-13 22:15] VITALS: BP 106/75
[2019-06-13 22:30] VITALS: BP 132/82
[2019-06-13 23:00] VITALS: BP 108/74
[2019-06-14] VITALS (9 sets, daily range): BP systolic 101–133; BP diastolic 55–89
[2019-06-14] MEDS ORDERED: methylPREDNISolone 125 MG (Solu-MEDROL) VIAL IV SCH
[2019-06-14 01:09] LABS: BASOPHILS % (AUTO) 0 % (0-10); EOSINOPHILS % (AUTO) 0 % (0-10); HEMATOCRIT 45 % (35-52); HEMOGLOBIN 13.8 G/DL (11.5-16.0); LYMPHOCYTES # (AUTO) 0.4 X 10^3 (1.0-4.0); LYMPHOCYTES % (AUTO) 6 % (12-44); MEAN CORPUSCULAR HEMOGLOBIN 27 PG (25-34); MEAN CORPUSCULAR HGB CONC 31 G/DL (32-36); MEAN CORPUSCULAR VOLUME 89 FL (80-99); MEAN PLATELET VOLUME 9.5 FL (7.4-10.4); MONOCYTES # (AUTO) 0.1 X 10^3 (0.0-1.0); MONOCYTES % (AUTO) 1 % (0-12); NEUTROPHILS # (AUTO) 6.8 X 10^3 (1.8-7.8); NEUTROPHILS % (AUTO) 93 % (42-75); PLATELET COUNT 327 10^3/uL (130-400); RED CELL DISTRIBUTION WIDTH 13.8 % (10.0-14.5); WHITE BLOOD COUNT 7.3 10^3/uL (4.3-11.0)
[2019-06-14 01:28] LABS: ALANINE AMINOTRANSFERASE 14 U/L (0-55); ALKALINE PHOSPHATASE 76 U/L (40-136); BILIRUBIN,TOTAL 0.2 MG/DL (0.1-1.0); BUN/CREATININE RATIO 27; CALCIUM 9.5 MG/DL (8.5-10.1); CARBON DIOXIDE 25 MMOL/L (21-32); CHLORIDE 107 MMOL/L (98-107); CREATININE SERUM 0.63 MG/DL (0.60-1.30); GFR ESTIMATED > 60; GLUCOSE 142 MG/DL (70-105); POTASSIUM 4.2 MMOL/L (3.6-5.0); SODIUM 142 MMOL/L (135-145); TOTAL PROTEIN 6.6 GM/DL (6.4-8.2)
[2019-06-14 01:47] LABS: MAGNESIUM 1.8 MG/DL (1.6-2.4); PHOSPHORUS 3.3 MG/DL (2.3-4.7)
[2019-06-14] MEDS: RT-ALBUTEROL/IPRATROPIUM 3 ML (DUONEB) VIAL INH PRN ×2 (02:40→21:54)
[2019-06-14 02:52] LABS: LYMPHOCYTES % (MANUAL) 5 %; NEUTROPHILS % (MANUAL) 95 %
--- NOTE | 2019-06-14 04:50 | Pulmonary Consultation ---
History of Present Illness History of Present Illness Date Seen by Provider: Jun 14, 2019 Time Seen by Provider: 04:50 Date of Admission Allergies and Home Medications Allergies Coded Allergies: oxycodone HCl (Verified Adverse Reaction, Severe, BLACK OUT, 01/15/19) morphine (Verified Adverse Reaction, Intermediate, Blackout, 01/15/19) Home Medications Acetaminophen 500 Mg Tablet, 500-1,000 MG PO Q4H PRN for PAIN-MILD, (Reported) Albuterol Sulfate 18 Gm Hfa.aer.ad, 2 PUFF INH Q4H PRN for SHORTNESS OF BREATH, (Reported) Albuterol Sulfate 2.5 Mg/3 Ml Vial.neb, 2.5 MG NEB Q4H PRN for SHORTNESS OF BREATH, (Reported) Fluticasone/Umeclidin/Vilanter 1 Each Blst.w.dev, 1 PUFF INH DAILY, (Reported) Levothyroxine Sodium 175 Mcg Tablet, 175 MCG PO DAILY, (Reported) Loratadine 10 Mg Tablet, 10 MG PO DAILY Prescribed by: JAGDEEP HAYNES on 02/09/198 Montelukast Sodium 10 Mg Tablet, 10 MG PO HS Prescribed by: JAGDEEP HAYNES on 02/09/19 1318 Nystatin 100,000 Unit/1 Ml Oral.susp, 4 ML PO QID PRN for THRUSH, (Reported) Prednisone 10 Mg Tab.ds.pk, 10 MG PO DAILY Take 6 tabs(60mg)daily,decrease by 1 tab(10MG)daily. Prescribed by: JAGDEEP HAYNES on 02/09/198 Propranolol HCl 40 Mg Tablet, 40 MG PO BID, (Reported) Rosuvastatin Calcium 20 Mg Tablet, 20 MG PO HS, (Reported) Varenicline Tartrate 1 Each Tab.ds.pk, PO UD, (Reported) DELIVERED 01-31-19 Venlafaxine HCl 75 Mg Cap.er.24h, 75 MG PO 1000, (Reported) Past Patzcqw-Jsnnwc-Dzhvyv Hx Past Med/Social Hx: Reviewed and Corrections made Patient Social History Alcohol Use: Past History (HISTORY OF ABUSE, CLAIMS NO RECENT USE) Recreational Drug Use: Yes (METH USE--DENIES IV USE-- SMOKES IT. ) Drug of Choice: METH USE--DENIES IV USE--SMOKES IT Smoking Status: Current Everyday Smoker (2-3 PPD SINCE AGE 9) Type Used: Cigarettes (2-3 PPD SINCE AGE 9) 2nd Hand Smoke Exposure: Yes Recent Foreign Travel: No Contact w/Someone Who Travel: No Recent Infectious Disease Expo: No Recent Hopitalizations: No Physical Abuse: No Sexual Abuse: No Mistreated: No Fear: No Immunizations Up To Date Tetanus Booster (TDap): Less than 5yrs Date of Pneumonia Vaccine: Jan 14, 2012 Date of Influenza Vaccine: Feb 12, 2019 Seasonal Allergies Seasonal Allergies: No Past Medical History Surgeries: Yes (BILAT CARPAL TUNNEL;L BREAST LUMPECTOMY; HIATAL HERNIA REPAIR; HAND SURGERY) Abdominal, Appendectomy, Breast, Orthopedic, Tubal Ligation Respiratory: Yes (O2 DEPENDENT AT 2L/NC) Pneumonia, Chronic Bronchitis, COPD Cardiac: Yes (CAROTID ARTERY DISEASE) High Cholesterol, Hypertension, Peripheral Vascular Neurological: No 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: No 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 NON-H LYMPH) Breast, Lymphoma Did You Recieve Any Treatments: Yes What Type of Treatment Did You: Chemotherapy, Radiation, Surgical Intervention Psychosocial: Yes (POLYSUBSTANCE ABUSE) Anxiety Integumentary: No Blood Disorders: No Family Medical History PMH: -LEFT BREAST CANCER 2003--S/P LUMPECTOMY, CHEMO AND RADIATION; 4 MONTHS LATER, DEVELOPED NON-HODGKIN'S LYMPOMA--S/P CHEMOTHERAPY PSH: -BILATERAL CARPAL TUNNEL -HAND SURGERY -RIGHT SHOULDER SURGERY. -HIATAL HERNIA REPAIR -LEFT BREAST LUMPECTOMY -BTL -APPENDECTOMY Review of Systems Time Seen by Provider: 04:49 Sepsis Event Evaluation Height, Weight, BMI Height: 5'2.00" Weight: 117lbs. 0.0oz. 53.369131kh; 23.09 BMI Method:Stated Exam Exam Vital Signs Date Time Temp Pulse Resp B/P (MAP) Pulse Ox O2 Delivery O2 Flow Rate FiO2 1/31/20 04:00 101 104/75 (85) 93 Vapotherm 30.00 30.00 06/14/19 03:42 Vapotherm 30.00 30 06/14/19 03:18 35.8 06/14/19 02:48 36.0 101 94 30 06/14/19 02:40 94 Vapotherm 30.00 30 06/14/19 01:00 102 06/14/19 00:07 Vapotherm 30.00 30.00 06/14/19 00:00 93 26 132/88 (103) 95 Vapotherm 35.00 35.00 06/13/19 23:59 Vapotherm 35.00 35.00 06/13/19 23:53 36.0 06/13/19 23:16 Vapotherm 25.00 25 06/13/19 23:00 106 24 108/74 (85) 92 Vapotherm 25.00 25.00 06/13/19 22:30 109 23 132/82 (99) 93 Vapotherm 25.00 25.00 06/13/19 22:15 Vapotherm 25.00 25.00 06/13/19 22:15 113 28 106/75 (85) 93 Vapotherm 25.00 25.00 06/13/19 22:00 94 Vapotherm 30.00 35 06/13/19 22:00 110 27 119/84 (96) 97 Vapotherm 25.00 30.00 06/13/19 21:43 113 06/13/19 21:40 36.6 112 30 114/86 (95) 100 Vapotherm 25.00 30.00 06/13/19 21:30 37.0 113 24 167/88 (152) 96 Room Air 06/13/19 19:25 98 Nasal Cannula 2.00 06/13/19 19:10 Nasal Cannula 2.00 9 06/13/19 19:10 97 Nasal Cannula 2.00 06/13/19 18:57 36.6 122 24 175/141 (152) 96 Nasal Cannula 3.00 06/13/19 18:57 96 Nasal Cannula 2.00 I & O 06/14/19 07:00 Intake Total 260 ml Balance 260 ml Height & Weight Height: 5'2.00" Weight: 117lbs. 0.0oz. 53.137397gz; 23.09 BMI Method:Stated Capillary Refill: Less Than 3 Seconds Gastrointestinal: non tender, soft, no organomegaly Results Lab Laboratory Tests 06/13/19 19:05 06/14/19 01:00 Assessment/Plan Assessment/Plan Acute on chronic respiratory failure COPD exacerbation -Solumedrol 40 IV Q 6 -DuoNebs Q4 add advair -Repeat ABG heavy cigarette smoker -education Methamphetamine -Education JO ELIZABETH DO Jun 14, 2019 04:50
[2019-06-14 05:05] LABS: ABG BASE EXCESS 2.4 MMOL/L (-2.5-2.5); ABG OXYGEN SATURATION 95 % (94-100); ABG PCO2 42 MMHG (35-45); ABG PH 7.41 (7.37-7.43); ABG PO2 64 MMHG (79-93); ABG TCO2 28.2 MMOL/L (21.0-31.0)
[2019-06-14 05:07] LABS: ALLENS TEST POSITIVE; INSPIRED O2 30%; PATIENT TEMP 35.8; VENTILATOR NO
[2019-06-14] MEDS ORDERED: LACTATED RINGERS 1,000 ML IV ONE (05:08)
[2019-06-14] MEDS ORDERED: methylPREDNISolone 40 MG/ML (Solu-MEDROL) VIAL ONE (05:14)
[2019-06-14] MEDS ORDERED: LACTATED RINGERS 1,000 ML IV SCH (05:15)
[2019-06-14] MEDS: methylPREDNISolone 40 MG/ML (Solu-MEDROL) VIAL IV SCH ×3 (05:19→17:24)
[2019-06-14] MEDS: RT-ALBUTEROL/IPRATROPIUM 3 ML (DUONEB) VIAL INH SCH ×4 (06:44→18:57)
--- NOTE | 2019-06-14 08:44 | Diagnostic Imaging Report ---
EXAMINATION: Portable erect AP chest at 317h. INDICATION: COPD exacerbation The heart size is within normal limits and stable when compared to 06/13/2019. The coarse bronchovascular and interstitial markings in the right lung base seen previously are again visualized. The nodular density overlying the right lower lobe seen previously is also unchanged. I suspect that this is related to the right nipple. The right upper lung and left lung are generally clear. The mediastinum is not widened. The osseous structures are intact. IMPRESSION: Stable chest. There has been no adverse change since the prior exam. Dictated by: Dictated on workstation # [id number]
[2019-06-14] MEDS ORDERED: FAMO20TA5 PO (09:40)
[2019-06-14] MEDS ORDERED: VENL150C98 PO (09:40)
[2019-06-14] MEDS ORDERED: LORA10TA7 PO (09:40)
--- NOTE | 2019-06-14 09:43 | NUR ---
SPOKE WITH THE PATIENT ABOUT HER MEDICATIONS. WE WENT OVER THE EXT MED HX AND SHE VERIFIED HOW SHE TAKES THEM. IN ADDITION TO WHAT IS SHOWN ON THE EXT MED HX PETRA HAY FILLED: 05-20-19 LORATADINE 10MG DAILY #30 SHE IS PAST DUE FOR REFILL ON SEVERAL MEDICATIONS, SHE ADMITS SHE FORGETS TO TAKE THEM SOMETIMES BUT SHE IS SUPPOSED TO BE TAKING THEM. I NOTED THE PAST DUE FILL DATE ON THE MED REC. 02-22-19 VENLAFAXINE ER 150MG #30 (STATES HER DOES HAS BEEN ADJUSTED AND HAS SOME LEFT OVER HOWEVER PRIOR TO THIS SHE FILLED THE 75MG #30 01-23-19 SO DOES NOT ALLOW FOR EXTRA) 01-23-19 PROPRANOLOL 40MG BID #60 01-23-19 CRESTOR 20MG #30 SHE FILLED SINGULAIR 10MG #30 02-09-19 BUT STATES SHE NO LONGER TAKES THIS, SHE ONLY TAKES THE CLARITIN. SHE REPORTS SHE IS USING HER VENTOLIN PRN AND TRELEGY DAILY. SHE STATES SHE DOES HAVE ALBUTEROL NEBULIZER SOLUTION NEEDED. SHE ALSO STATES SHE USES [employer]STATIN SUSPENSION NEEDED FOR THRUSH, SHE HAS SOME ON HAD. SHE TAKES TYLENOL OTC PRN.
[2019-06-14] MEDS: RT-ADVAIR HFA 115/21 MCG PER PUFF IH SCH ×2 (10:59→23:15)
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
[2019-06-14] MEDS ORDERED: ACETAMINOPHEN 500 MG TAB (TYLENOL) PO PRN (11:45)
[2019-06-14] MEDS ORDERED: NYSTATIN ORAL SUSP 5 ML UDC PO PRN (11:45)
--- NOTE | 2019-06-14 14:46 | NUR ---
"RD ASSESSMENT PMHx: COPD; hypercholesterolemia; HTN; GERD; hiatal hernia PT INTERACTION: Pt was awake and pleasant during consult for MST score. Pt states current appetite is poor and has been this way for the past week. Note PO intake of 100% x1meal, per chart review. Pt states following a regular diet at home and has no issues with chewing/swallowing food. Pt states no recent issues with n/v/c/d at this time, and that her last BM was 06/10. Note pt not currently on bowel regimen per chart review. Pt states wt tends to fluctuate. Note recent 11# wt gain x1mon, per chart review. Given pt's PO intake and wt hx, pt does not meet criteria for malnutrition per ASPEN guidelines. ABNORMAL NUTRITION-RELATED LAB VALUES LOW: HIGH: glu 142 Est. kcal needs: 2561-0902 kcal | 25-30 kcal/kg Est. Pro needs: 49-61 g Pro | 0.8-1.2 g Pro/kg PES STATEMENT: Inadequate oral intake (NI-2.1) related to loss of appetite as evidenced by pt interview INTERVENTION: Continue with current diet order of Heart Healthy diet. Given avg PO intake of 87%, D/C current supplementation order of Ensure Enlive with meals TID. Will continue to follow and reassess as pt needs and status change. MONITOR/EVALUATE: PO Intake; Plan of Care; Hydration Status; Weight Status; Lab Values Mikala Garcia, MS, RD, LD"
[2019-06-14] MEDS ORDERED: cefTRIAXone 1,000 MG IV (ROCEPHIN) VIAL ONE ×2 (20:32→20:34)
[2019-06-14] MEDS ORDERED: WATER (STERILE) FOR INJECTION 10 ML ONE (20:34)
[2019-06-14] MEDS: AZITHROMYCIN 500 MG/NS 250 ML IVPB IV SCH ×2 (20:40)
[2019-06-14] MEDS: FAMOTIDINE 20 MG (PEPCID) TABLET PO SCH (20:41)
[2019-06-14] MEDS: cefTRIAXone 1,000 MG/SWFI 10 ML IV PUSH IV SCH ×2 (20:41)
[2019-06-14] MEDS: PROPRANOLOL 20 MG (INDERAL) TABLET PO SCH (20:41)
[2019-06-14] MEDS: ROSUVASTATIN 20 MG (CRESTOR) TABLET PO SCH (20:41)
[2019-06-14] MEDS: ACETAMINOPHEN 500 MG TAB (TYLENOL) PO PRN (20:42)
[2019-06-14] MEDS: ENOXAPARIN 40 MG/0.4 ML (LOVENOX) SYR SC SCH (20:42)
--- NOTE | 2019-06-14 22:00 | NUR ---
214- PATIENT PUSHED CALL LIGHT. THIS RN WENT TO CHECK AND SEE WHAT SHE NEEDED. PATIENT COMPLAINING OF DYSPNEA AND ASSUMING THE ORTHOPNEIC POSITION OVER BEDSIDE TABLE. CHECKED PATIENT O2 SAT. O2 SAT READS 89%. INCREASED VAPOTHERM FROM 20 L 30% FIO2 TO 30 L 30% FIO2, WHICH WERE THE PREVIOUS SETTINGS BEFORE RT TITRATED HER DOWN. SATS INCREASED TO 94-95%, HOWEVER, PATIENT STILL HAVING DIFFICULTY CATCHING BREATH. LUNG SOUNDS AT THIS TIME COARSE WITH FAINT WHEEZES TO BILAT. BASES. 2153- THIS RN ADMINISTERED AN ALBUTEROL BREATHING TREATMENT TO HELP RELAX MUSCLES IN THE LUNGS AND INCREASE AIR FLOW. AFTER TREATMENT, PATIENT STATES SHE STILL HAS NO RELIEF. 2200- SINCE PATIENT WAS STILL HAVING DIFFICULTY BREATHING EVEN AFTER THE FIRST TWO ATTEMPTS TO CORRECT IT, THIS RN ADMINISTERED ATIVAN, ORDERED FOR AIR HUNGER. PATIENT STATES MINIMAL RELIEF AFTER ADMINISTRATION. 2210- FENTANYL ADMINISTERED, PER ORDER FOR AIR HUNGER AT THIS TIME. 2220- THIS RN STAYED IN THE ROOM AND MONITORED PATIENT O2 SAT, WHICH WAS STILL BETWEEN 94-95% ON VAPOTHERM 30 L 30% FI02. PATIENT STATES THAT SHE CAN BREATH BETTER AT THIS TIME. O2 MONITOR LEFT ON AT THIS TIME FOR CONTINUOUS MONITOR OF O2 SAT. THIS RN CALLED RESPIRATORY THERAPY TO LET THEM KNOW THE CURRENT SITUATION AND THE CHANGES/MEDICATIONS GIVEN AT THIS TIME. RESPIRATORY GRATEFUL AND AGREES WITH THE CURRENT SETTINGS. 2240- O2 SAT REMAINED IN THE 93-95% RANGE. O2 MONITOR REMOVED FROM PATIENT AT THIS TIME. PATIENT IS RESTING COMFORTABLE WITH EYES CLOSED SUPINE IN BED. NO FURTHER COMPLAINTS OF DYSPNEA NOTED AT THIS TIME. RT ON FLOOR TO CHECK PATIENT AT THIS TIME.
[2019-06-15 00:10] VITALS: BP 142/83
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
[2019-06-15] MEDS: methylPREDNISolone 40 MG/ML (Solu-MEDROL) VIAL IV SCH ×4 (01:30→18:07)
[2019-06-15] MEDS: RT-ALBUTEROL/IPRATROPIUM 3 ML (DUONEB) VIAL INH SCH ×6 (01:56→23:02)
[2019-06-15 04:00] VITALS: BP 179/97
[2019-06-15 05:46] LABS: MAGNESIUM 1.9 MG/DL (1.6-2.4); PHOSPHORUS 3.1 MG/DL (2.3-4.7)
--- NOTE | 2019-06-15 07:22 | Pulmonary Progress Note ---
Subjective Time Seen by a Provider: 07:21 Subjective/Events-last exam Pt states she had worsening SOB however now feels improved. Sepsis Event Evaluation Height, Weight, BMI Height: 5'2.00" Weight: 117lbs. 0.0oz. 53.975319hu; 23.09 BMI Method:Stated Focused Exam Lactate Level 06/13/19 19:05: Lactic Acid Level 1.11 Exam Exam Vital Signs Date Time Temp Pulse Resp B/P (MAP) Pulse Ox O2 Delivery O2 Flow Rate FiO2 06/15/19 04:00 Vapotherm 40.00 30 06/15/19 04:00 36.0 88 20 179/97 (124) 95 Vapotherm 40.00 30.00 06/15/19 01:56 96 Vapotherm 40.00 30 06/15/19 01:00 100 06/15/19 00:10 36.2 95 22 142/83 (102) 95 Vapotherm 30.00 30.00 06/15/19 00:00 Vapotherm 30.00 30 06/14/19 21:45 94 Vapotherm 30.00 30 06/14/19 20:26 36.6 114 22 132/69 (90) 95 Vapotherm 20.00 30.00 06/14/19 20:00 Vapotherm 20.00 30 06/14/19 19:00 116 06/14/19 16:24 36.6 114 22 101/55 (70) 95 Vapotherm 20.00 30.00 06/14/19 16:00 Vapotherm 30.00 30 06/14/19 14:30 97 Vapotherm 30.00 30 06/14/19 12:22 99 06/14/19 12:00 Vapotherm 30.00 30 06/14/19 11:21 35.8 104 22 115/57 (76) 97 Vapotherm 30.00 30.00 06/14/19 10:56 90 Vapotherm 30.00 30 06/14/19 10:15 36.0 125 28 133/89 (104) 96 Vapotherm 30.00 30.00 06/14/19 09:00 96 Vapotherm 30.00 30 06/14/19 08:00 Vapotherm 30.00 30 06/14/19 08:00 103 115/72 (86) 98 Vapotherm 30.00 30.00 I & O 06/15/19 07:00 Intake Total 2025 ml Output Total 1475 ml Balance 550 ml Height & Weight Height: 5'2.00" Weight: 117lbs. 0.0oz. 53.909968yy; 23.09 BMI Method:Stated General Appearance: No Apparent Distress, WD/WN, Anxious, Chronically ill, Thin HEENT: PERRL/EOMI, Normal ENT Inspection, Pharynx Normal, Moist Mucous Membranes Neck: Full Range of Motion, Normal Inspection, Non Tender Respiratory: Chest Non Tender, No Respiratory Distress, Accessory Muscle Use, Crackles, Decreased Breath Sounds, Wheezing Cardiovascular: Regular Rate, Rhythm, No Edema, No Gallop, No JVD, No Murmur, Normal Peripheral Pulses Capillary Refill: Less Than 3 Seconds Gastrointestinal: non tender, soft, no organomegaly Extremity: Normal Capillary Refill, Normal Inspection, Normal Range of Motion, Non Tender, No Calf Tenderness, No Pedal Edema Neurologic/Psychiatric: Alert, Oriented x3, No Motor/Sensory Deficits, Normal Mood/Affect Skin: Normal Color, Warm/Dry Lymphatic: No Adenopathy Results Lab Laboratory Tests 06/13/19 19:05 06/14/19 01:00 Assessment/Plan Assessment/Plan Acute on chronic respiratory failure COPD exacerbation -Titrate oxygen as tolerated -Solumedrol 40 IV Q 6 -DuoNebs Q4 add advair -Repeat ABG heavy cigarette smoker -education Methamphetamine -Education JO ELIZABETH DO Jun 15, 2019 07:22
[2019-06-15 08:00] VITALS: BP 180/86
[2019-06-15] MEDS: LORATADINE (CLARITIN) 10 MG TAB PO SCH (08:26)
[2019-06-15] MEDS: LEVOTHYROXINE 75 MCG (LEVOTHROID) TABLET PO SCH (08:26)
[2019-06-15] MEDS: LEVOTHYROXINE 100 MCG (LEVOTHROID) TAB PO SCH (08:26)
[2019-06-15] MEDS: VENlafaxine XR 75 MG (EFFEXOR XR) CAP PO SCH (08:26)
[2019-06-15] MEDS: FAMOTIDINE 20 MG (PEPCID) TABLET PO SCH ×2 (08:26→20:21)
[2019-06-15] MEDS: PROPRANOLOL 20 MG (INDERAL) TABLET PO SCH ×2 (08:26→20:21)
[2019-06-15] MEDS ORDERED: NON-FORMULARY MEDICATION 1 EA EA (Fluticasone/Umeclidin/Vilanter (Trelegy Ellipta 100-62.5 INH SCH (09:00)
--- NOTE | 2019-06-15 09:39 | Progress Note - Hospitalist ---
Subjective HPI/CC On Admission Date Seen by Provider: Jun 15, 2019 Time Seen by Provider: 10:16 CC: SOB HPI: This is a 63yoWF with known COPD who smokes two packs of cigarettes since [age] years old with a PMH of intubation who originally when she presented to the ER said that she would not be intubated or coded but changed her mind when she arrived at the ICU and was diagnosed with acute exacerbation of COPD, has received IV steroids so she does feel well. She willbe transferred to the fourth floor. Subjective/Events-last exam Patient sleeping soundly arouses with no focal neurologic findings noted within goes right back to sleep in the right lateral decubitus position and appears to be in no acute distress. In discussion with staff last dose of lorazepam 1 mg IV given at 10 o'clock last night in addition to 50 g fentanyl apparently for reported air hunger. Patient's respiratory rate 18 and nonlabored during today's evaluation. Focused Exam Lactate Level 06/13/19 19:05: Lactic Acid Level 1.11 Objective Exam Vital Signs Vital Signs Date Time Temp Pulse Resp B/P (MAP) Pulse Ox O2 Delivery O2 Flow Rate FiO2 06/15/19 08:00 36.4 100 20 180/86 (117) 93 Vapotherm 40.00 30.00 06/15/19 04:00 30 Capillary Refill : Less Than 3 Seconds General Appearance: No Apparent Distress, Chronically ill Neck: Normal Inspection, Supple Respiratory: No Accessory Muscle Use, No Respiratory Distress, Other (In the right lateral decubitus position patient has some mild expiratory wheezing on the right left side is clear) Cardiovascular: Regular Rate, Rhythm, No Edema, No Gallop, No JVD, No Murmur, Normal Peripheral Pulses Neurologic/Psychiatric: Other (Sedate no focal neurologic findings noted) Results/Procedures Lab Patient resulted labs reviewed. Assessment/Plan Assessment and Plan Assess & Plan/Chief Complaint Acute on chronic respiratory failure significantly improved compared to yesterday's description ABG improved no evidence for respiratory acidosis or CO2 retention. COPD exacerbation -Titrate oxygen as tolerated -Solumedrol 40 IV Q 6 -DuoNebs Q4 add advair -Repeat ABG heavy cigarette smoker -education Methamphetamine -Education Likely medication related sedation DC fentanyl and lorazepam. There is also a strong possibility the patient is been up for a lengthy period of time due to methamphetamine abuse/sleep deprived Clinical Quality Measures DVT/VTE Risk/Contraindication: Risk Factor Score Per Nursin RFS Level Per Nursing on Admit: 4+=Very High MIS GEE MD Jun 15, 2019 09:39
--- NOTE | 2019-06-15 10:00 | NUR ---
DR. GEE NOTIFIED OF ELEVATED B/P 180/86 THIS AM.
[2019-06-15] MEDS: RT-ADVAIR HFA 115/21 MCG PER PUFF IH SCH ×2 (10:28→18:54)
[2019-06-15 12:00] VITALS: BP 134/61
--- NOTE | 2019-06-15 14:40 | NUR ---
RT REPORTS O2 DECREASED TO 30L/30%.
[2019-06-15 16:00] VITALS: BP 139/76
[2019-06-15 19:34] VITALS: BP 172/79
[2019-06-15] MEDS ORDERED: WATER (STERILE) FOR INJECTION 10 ML ONE (20:11)
[2019-06-15] MEDS ORDERED: cefTRIAXone 1,000 MG IV (ROCEPHIN) VIAL ONE (20:11)
[2019-06-15] MEDS: ENOXAPARIN 40 MG/0.4 ML (LOVENOX) SYR SC SCH (20:21)
[2019-06-15] MEDS: ROSUVASTATIN 20 MG (CRESTOR) TABLET PO SCH (20:21)
[2019-06-15] MEDS: cefTRIAXone 1,000 MG/SWFI 10 ML IV PUSH IV SCH ×2 (20:21)
[2019-06-15] MEDS: AZITHROMYCIN 500 MG/NS 250 ML IVPB IV SCH ×2 (20:28)
[2019-06-16] VITALS: BP 140/61
[2019-06-16] MEDS: methylPREDNISolone 40 MG/ML (Solu-MEDROL) VIAL IV SCH ×4 (00:10→17:55)
[2019-06-16] MEDS: RT-ALBUTEROL/IPRATROPIUM 3 ML (DUONEB) VIAL INH SCH ×6 (02:44→21:48)
[2019-06-16 04:00] VITALS: BP 167/57
[2019-06-16 05:35] LABS: MAGNESIUM 1.7 MG/DL (1.6-2.4); PHOSPHORUS 2.5 MG/DL (2.3-4.7)
[2019-06-16 08:00] VITALS: BP 165/77
[2019-06-16] MEDS: LEVOTHYROXINE 75 MCG (LEVOTHROID) TABLET PO SCH (09:13)
[2019-06-16] MEDS: VENlafaxine XR 75 MG (EFFEXOR XR) CAP PO SCH (09:14)
[2019-06-16] MEDS: LEVOTHYROXINE 100 MCG (LEVOTHROID) TAB PO SCH (09:14)
[2019-06-16] MEDS: LORATADINE (CLARITIN) 10 MG TAB PO SCH (09:14)
[2019-06-16] MEDS: FAMOTIDINE 20 MG (PEPCID) TABLET PO SCH ×2 (09:14→21:37)
[2019-06-16] MEDS: PROPRANOLOL 20 MG (INDERAL) TABLET PO SCH ×2 (09:14→21:34)
[2019-06-16] MEDS: RT-ADVAIR HFA 115/21 MCG PER PUFF IH SCH ×2 (10:08→17:40)
--- NOTE | 2019-06-16 11:38 | NUR ---
ASSESSMENT REVIEWED AND AGREE WITH PRECEPTOR.
--- NOTE | 2019-06-16 11:52 | Progress Note - Hospitalist ---
Subjective HPI/CC On Admission Date Seen by Provider: Jun 16, 2019 Time Seen by Provider: 11:47 CC: SOB HPI: This is a 63yoWF with known COPD who smokes two packs of cigarettes since [age] years old with a PMH of intubation who originally when she presented to the ER said that she would not be intubated or coded but changed her mind when she arrived at the ICU and was diagnosed with acute exacerbation of COPD, has received IV steroids so she does feel well. She willbe transferred to the fourth floor. Subjective/Events-last exam patient awake and alert today reporting less shortness of breath voicing no complaints. Her minute and cough loose but for the most part nonproductive. Focused Exam Lactate Level 06/13/19 19:05: Lactic Acid Level 1.11 Objective Exam Vital Signs Vital Signs Date Time Temp Pulse Resp B/P (MAP) Pulse Ox O2 Delivery O2 Flow Rate FiO2 06/16/19 10:09 94 Vapotherm 15.00 30 06/16/19 08:00 36.4 83 18 165/77 (106) Capillary Refill : Less Than 3 SecondsLess Than 3 Seconds General Appearance: No Apparent Distress, WD/WN Respiratory: Chest Non Tender, No Accessory Muscle Use, No Respiratory Distress Cardiovascular: Regular Rate, Rhythm, No Edema, No Gallop, No JVD, No Murmur (heart sounds distant), Normal Peripheral Pulses Extremity: Normal Inspection, Normal Range of Motion, Non Tender, No Calf Tenderness, No Pedal Edema Results/Procedures Lab Patient resulted labs reviewed. Assessment/Plan Assessment and Plan Assess & Plan/Chief Complaint Acute on chronic respiratory failure significantly improved compared to yesterday's description ABG improved no evidence for respiratory acidosis or CO2 retention.patient much improved today continue IV Solu-Medrol now awake and alert. COPD exacerbation -Titrate oxygen as tolerated -Solumedrol 40 IV Q 6 -DuoNebs Q4 add advair -Repeat ABG heavy cigarette smoker -education Methamphetamine -Education Likely medication related sedation DC fentanyl and lorazepam. There is also a strong possibility the patient is been up for a lengthy period of time due to methamphetamine abuse/sleep deprived Clinical Quality Measures DVT/VTE Risk/Contraindication: Risk Factor Score Per Nursin RFS Level Per Nursing on Admit: 4+=Very High MIS GEE MD Jun 16, 2019 11:52
[2019-06-16 12:00] VITALS: BP 187/84
[2019-06-16 15:53] VITALS: BP 172/84
[2019-06-16 19:42] VITALS: BP 187/93
[2019-06-16] MEDS ORDERED: cefTRIAXone 1,000 MG IV (ROCEPHIN) VIAL ONE (21:21)
[2019-06-16] MEDS ORDERED: WATER (STERILE) FOR INJECTION 10 ML ONE (21:22)
[2019-06-16] MEDS: ACETAMINOPHEN 500 MG TAB (TYLENOL) PO PRN (21:34)
[2019-06-16] MEDS: ROSUVASTATIN 20 MG (CRESTOR) TABLET PO SCH (21:35)
[2019-06-16] MEDS: ENOXAPARIN 40 MG/0.4 ML (LOVENOX) SYR SC SCH (21:35)
[2019-06-16] MEDS: cefTRIAXone 1,000 MG/SWFI 10 ML IV PUSH IV SCH ×2 (21:36)
[2019-06-16] MEDS: AZITHROMYCIN 500 MG/NS 250 ML IVPB IV SCH ×2 (21:39)
[2019-06-17] VITALS (7 sets, daily range): BP systolic 114–180; BP diastolic 65–87
[2019-06-17] MEDS: methylPREDNISolone 40 MG/ML (Solu-MEDROL) VIAL IV SCH ×3 (00:17→11:41)
[2019-06-17] MEDS: RT-ALBUTEROL/IPRATROPIUM 3 ML (DUONEB) VIAL INH SCH ×6 (01:55→21:09)
[2019-06-17 04:51] LABS: MEAN PLATELET VOLUME 10.5 FL (7.4-10.4); RED CELL DISTRIBUTION WIDTH 13.1 % (10.0-14.5); WHITE BLOOD COUNT 13.7 10^3/uL (4.3-11.0)
[2019-06-17 05:12] LABS: MAGNESIUM 1.8 MG/DL (1.6-2.4); PHOSPHORUS 3.5 MG/DL (2.3-4.7)
[2019-06-17] MEDS: PROPRANOLOL 20 MG (INDERAL) TABLET PO SCH ×2 (08:02→20:20)
[2019-06-17] MEDS: LEVOTHYROXINE 100 MCG (LEVOTHROID) TAB PO SCH (08:03)
[2019-06-17] MEDS: FAMOTIDINE 20 MG (PEPCID) TABLET PO SCH ×2 (08:03→20:20)
[2019-06-17] MEDS: VENlafaxine XR 75 MG (EFFEXOR XR) CAP PO SCH (08:03)
[2019-06-17] MEDS: LEVOTHYROXINE 75 MCG (LEVOTHROID) TABLET PO SCH (08:03)
[2019-06-17] MEDS: LORATADINE (CLARITIN) 10 MG TAB PO SCH (08:03)
[2019-06-17] MEDS: RT-ADVAIR HFA 115/21 MCG PER PUFF IH SCH ×2 (12:03→18:30)
--- NOTE | 2019-06-17 13:30 | NUR ---
CM/SS visited with patient to assess for needs. The patient stated that she is feeling a little better today. The patient reports that she did not have any needs that CM/SS could assist with. She states that she does not want resources for quitting for smoking or methamphetamine use. She states that was a while ago when she had the problem and does not anymore. CM/SS will follow up if the patient has any other needs.
--- NOTE | 2019-06-17 17:02 | Progress Note ---
Subjective Subjective/Events-last exam Afebrile, on vapotherm, states she is feeling better than when she came in. Objective Exam Last Set of Vital Signs Vital Signs Date Time Temp Pulse Resp B/P (MAP) Pulse Ox O2 Delivery O2 Flow Rate FiO2 06/17/19 16:01 36.8 70 20 169/79 (109) 95 Vapotherm 15.00 24.00 06/17/19 14:35 24 Capillary Refill : Less Than 3 SecondsLess Than 3 Seconds I&O Intake and Output 06/17/19 00:00 Intake Total 1430 ml Output Total 2100 ml Balance -670 ml Intake Oral 1430 ml Output Urine Total 2000 ml Post Void Residual 100 ml Bladder Scan Volume Amount 7 ml General: Alert, No Acute Distress Lungs: Other (diffuse wheezing) Extremities: No Edema Psych/Mental Status: Mood NL Results/Procedures Lab Laboratory Tests 06/17/19 04:10: White Blood Count 13.7H, Red Blood Count 4.68, Hemoglobin 13.0, Hematocrit 40, Mean Corpuscular Volume 86, Mean Corpuscular Hemoglobin 28, Mean Corpuscular Hemoglobin Concent 32, Red Cell Distribution Width 13.1, Platelet Count 329, Mean Platelet Volume 10.5H, Creatinine 0.69, Phosphorus Level 3.5, Magnesium Level 1.8 Microbiology 06/13/19 Blood Culture - Preliminary, Resulted No growth 06/13/19 Influenza Types A,B Antigen (RAEANN) - Final, Complete Assessment/Plan Assessment/Plan (1) COPD exacerbation Status: Acute Assessment & Plan: Improving, change solumedrol to prednisone. D/C antibiotics, chest xray without infiltrate, afebrile and mild leukocytosis consistent with steroid use. (2) Hypertension Status: Chronic Assessment & Plan: Uncontrolled, only on propranolol which may not be ideal given her lung disease. Add lisinopril. (3) Methamphetamine use Status: Acute (4) DVT prophylaxis Status: Acute Assessment & Plan: Enoxaparin Clinical Quality Measures DVT/VTE Risk/Contraindication: Risk Factor Score Per Nursin RFS Level Per Nursing on Admit: 4+=Very High NIKKO MOCTEZUMA MD Jun 17, 2019 17:02
[2019-06-17] MEDS: ROSUVASTATIN 20 MG (CRESTOR) TABLET PO SCH (20:20)
[2019-06-17] MEDS: ENOXAPARIN 40 MG/0.4 ML (LOVENOX) SYR SC SCH (20:23)
[2019-06-17] MEDS: ACETAMINOPHEN 500 MG TAB (TYLENOL) PO PRN (20:23)
[2019-06-18] VITALS: BP 128/74
[2019-06-18] MEDS: RT-ALBUTEROL/IPRATROPIUM 3 ML (DUONEB) VIAL INH SCH ×3 (00:58→09:51)
[2019-06-18 04:00] VITALS: BP 127/84
[2019-06-18] MEDS: LEVOTHYROXINE 75 MCG (LEVOTHROID) TABLET PO SCH (04:37)
[2019-06-18] MEDS: LEVOTHYROXINE 100 MCG (LEVOTHROID) TAB PO SCH (04:37)
[2019-06-18 04:48] LABS: HEMOGLOBIN 13.5 G/DL (11.5-16.0); MEAN PLATELET VOLUME 10.5 FL (7.4-10.4); RED CELL DISTRIBUTION WIDTH 13.2 % (10.0-14.5); WHITE BLOOD COUNT 14.8 10^3/uL (4.3-11.0)
[2019-06-18 05:02] LABS: BUN/CREATININE RATIO 33; CARBON DIOXIDE 24 MMOL/L (21-32); CHLORIDE 106 MMOL/L (98-107); CREATININE SERUM 0.63 MG/DL (0.60-1.30); GFR ESTIMATED > 60; GLUCOSE 94 MG/DL (70-105); POTASSIUM 3.9 MMOL/L (3.6-5.0); SODIUM 139 MMOL/L (135-145)
[2019-06-18] MEDS ORDERED: predniSONE 20 MG TAB PO SCH (07:00)
--- NOTE | 2019-06-18 07:15 | Pulmonary Progress Note ---
Subjective Time Seen by a Provider: 07:14 Sepsis Event Evaluation Height, Weight, BMI Height: 5'2.00" Weight: 117lbs. 0.0oz. 53.104922vr; 23.09 BMI Method:Stated Exam Exam Vital Signs Date Time Temp Pulse Resp B/P (MAP) Pulse Ox O2 Delivery O2 Flow Rate FiO2 06/18/19 04:00 36.3 65 21 127/84 (98) 97 Vapotherm 15.00 24.00 06/18/19 00:00 36.8 54 21 128/74 (92) 99 Vapotherm 15.00 24.00 06/17/19 21:09 91 Vapotherm 15.00 24 06/17/19 20:53 36.7 06/17/19 20:37 36.7 75 20 114/65 (81) 94 Vapotherm 15.00 24.00 06/17/19 20:23 36.8 06/17/19 20:00 93 Vapotherm 15.00 06/17/19 18:30 93 Vapotherm 15.00 24 06/17/19 16:01 36.8 70 20 169/79 (109) 95 Vapotherm 15.00 24.00 06/17/19 14:35 36.2 67 93 24 06/17/19 13:00 63 06/17/19 12:05 94 Vapotherm 15.00 24 06/17/19 12:00 36.2 64 18 178/87 (117) 94 Vapotherm 15.00 30.00 06/17/19 09:00 95 Vapotherm 15.00 06/17/19 08:00 36.7 82 18 180/84 (116) 95 Vapotherm 15.00 30.00 I & O 06/18/19 07:00 Intake Total 2030 ml Output Total 900 ml Balance 1130 ml Height & Weight Height: 5'2.00" Weight: 117lbs. 0.0oz. 53.454345de; 23.09 BMI Method:Stated General Appearance: No Apparent Distress, WD/WN HEENT: PERRL/EOMI, Normal ENT Inspection, Pharynx Normal, Moist Mucous Membranes Neck: Normal Inspection, Supple Respiratory: Chest Non Tender, No Accessory Muscle Use, No Respiratory Distress Cardiovascular: Regular Rate, Rhythm, No Edema, No Gallop, No JVD, No Murmur (heart sounds distant), Normal Peripheral Pulses Capillary Refill: Less Than 3 Seconds Gastrointestinal: non tender, soft, no organomegaly Extremity: Normal Inspection, Normal Range of Motion, Non Tender, No Calf Tend erness, No Pedal Edema Neurologic/Psychiatric: Other ([place] no focal neurologic findings noted) Skin: Normal Color, Warm/Dry Lymphatic: No Adenopathy Results Lab Laboratory Tests 06/17/19 04:10 06/18/19 04:30 Assessment/Plan Assessment/Plan Acute on chronic respiratory failure COPD exacerbation -Titrate oxygen as tolerated -Prednisone taper -DuoNebs Q4 add advair heavy cigarette smoker -education Methamphetamine -Education JO ELIZABETH DO Jun 18, 2019 07:15
[2019-06-18] MEDS: RT-ADVAIR HFA 115/21 MCG PER PUFF IH SCH (07:33)
[2019-06-18 07:57] VITALS: BP 130/60
[2019-06-18] MEDS: VENlafaxine XR 75 MG (EFFEXOR XR) CAP PO SCH (08:14)
[2019-06-18] MEDS: PROPRANOLOL 20 MG (INDERAL) TABLET PO SCH (08:14)
[2019-06-18] MEDS: LORATADINE (CLARITIN) 10 MG TAB PO SCH (08:14)
[2019-06-18] MEDS: FAMOTIDINE 20 MG (PEPCID) TABLET PO SCH (08:14)
[2019-06-18] MEDS ORDERED: PRD50T PO (08:50)
--- NOTE | 2019-06-18 10:25 | NUR ---
Important Message from Medicare presented, reviewed, signed and placed in patient chart. Patient voiced no intention to appeal and deny any needs or further questions at this time.
[2019-06-18 13:20] VITALS: BP 130/60
--- NOTE | 2019-06-18 17:32 | Discharge Summary ---
Discharge Summary Hospital Course Problems/Diagnosis: (1) COPD exacerbation Status: Acute Assessment & Plan: Initially treated with solumedrol, changed to prednisone day before d/c and continued for 3 more days on d/c. D/C antibiotics, chest xray without infiltrate, afebrile and mild leukocytosis consistent with steroid use. (2) Hypertension Status: Chronic Assessment & Plan: Uncontrolled, only on propranolol which may not be ideal given her lung disease. Needs further eval outpatient. (3) Methamphetamine use Status: Acute Hospital Course Date of Admission: Jun 13, 2019 at 20:10 Admission Diagnosis : Family Physician/Provider: Maximiliano Nelson Date of Discharge: 06/18/19 Discharge Diagnosis: See problem list Hospital Course: See problem list Labs and Pending Lab Test: Laboratory Tests 06/18/19 04:30: White Blood Count 14.8H, Red Blood Count 4.97, Hemoglobin 13.5, Hematocrit 42, Mean Corpuscular Volume 85, Mean Corpuscular Hemoglobin 27, Mean Corpuscular Hemoglobin Concent 32, Red Cell Distribution Width 13.2, Platelet Count 298, Mean Platelet Volume 10.5H, Sodium Level 139, Potassium Level 3.9, Chloride Level 106, Carbon Dioxide Level 24, Anion Gap 9, Blood Urea Nitrogen 21H, Creatinine 0.63, Estimat Glomerular Filtration Rate > 60, BUN/Creatinine Ratio 33, Glucose Level 94, Calcium Level 9.0 Microbiology 06/13/19 Blood Culture - Preliminary, Resulted No growth 06/13/19 Influenza Types A,B Antigen (RAEANN) - Final, Complete Home Meds Active Prednisone 50 Mg Tab 50 Mg PO DAILY Reported Loratadine 10 Mg Tablet 10 Mg PO DAILY Venlafaxine HCl ER (Venlafaxine HCl) 150 Mg Cap.er.24h 150 Mg PO DAILY LAST FILLED #30 02-22-19 Famotidine 20 Mg Tablet 20 Mg PO BID Tylenol Extra Strength (Acetaminophen) 500 Mg Tablet 500-1,000 Mg PO Q4H PRN Albuterol Sulfate 2.5 Mg/3 Ml Vial.neb 2.5 Mg NEB Q4H PRN Nystatin 100,000 Unit/1 Ml Oral.susp 4 Ml PO QID PRN Rosuvastatin Calcium 20 Mg Tablet 20 Mg PO HS LAST FILLED #30 01-23-19 Propranolol HCl 40 Mg Tablet 40 Mg PO BID LAST FILLED #60 01-23-19 Levothyroxine Sodium 175 Mcg Tablet 175 Mcg PO DAILY Trelegy Ellipta 100-62.5-25 (Fluticasone/Umeclidin/Vilanter) 1 Each Blst.w.dev 1 Puff INH DAILY Ventolin Hfa (Albuterol Sulfate) 18 Gm Hfa.aer.ad 2 Puff INH Q4H PRN Assessment/Pt DC Instructions See above Discharge Diet: No Restrictions Activity as Tolerated: Yes Orders-Post D/C & Referrals Pneu Vac Indicated: Yes Discharge Physical Examination Allergies: Coded Allergies: oxycodone HCl (Verified Adverse Reaction, Severe, BLACK OUT, 01/15/19) morphine (Verified Adverse Reaction, Intermediate, Blackout, 01/15/19) General Appearance: No Apparent Distress Respiratory: Lungs Clear, Normal Breath Sounds Cardiovascular: Regular Rate, Rhythm, No Murmur Skin: Normal Color, Warm/Dry Neurologic/Psychiatric: Alert, Normal Mood/Affect Copy Copies To 1: Lalit Nelson APRN Clinical Quality Measures DVT/VTE Risk/Contraindication: Risk Factor Score Per Nursin RFS Level Per Nursing on Admit: 4+=Very High NIKKO MOCTEZUMA MD Jun 18, 2019 17:32
== END 2019-06-18 13:20 | disposition home or self-care (01) | DRG 189 ==
LOC: EDUNIT# 18:55 → ER 18:56 → ICU 20:10 → 4TH 06-14 10:06
PROVIDERS: ADMIT Internal Medicine; ATTEND Family Medicine
DX: J96.20 Acute and chronic respiratory failure, unspecified whether with hypoxia or hypercapnia (principal); J44.1 Chronic obstructive pulmonary disease with (acute) exacerbation; C85.99 Non-Hodgkin lymphoma, unspecified, extranodal and solid organ sites; F17.210 Nicotine dependence, cigarettes, uncomplicated; I10 Essential (primary) hypertension; E78.00 Pure hypercholesterolemia, unspecified; I73.9 Peripheral vascular disease, unspecified; K21.9 Gastro-esophageal reflux disease without esophagitis; E03.9 Hypothyroidism, unspecified; F41.9 Anxiety disorder, unspecified; M54.9 Dorsalgia, unspecified; M19.91 Primary osteoarthritis, unspecified site; F10.11 Alcohol abuse, in remission; Z99.81 Dependence on supplemental oxygen; Z91.19 Patient's noncompliance with other medical treatment and regimen; Z85.3 Personal history of malignant neoplasm of breast; Z92.21 Personal history of antineoplastic chemotherapy; Z92.3 Personal history of irradiation; K44.9 Diaphragmatic hernia without obstruction or gangrene; F15.10 Other stimulant abuse, uncomplicated
CPT/HCPCS: 36415; 36600; 51702; 71045; 80048; 80053; 80306; 80320; 81000; 82550; 82553; 82565; 82805; 83605; 83735; 83880; 84100; 84439; 84443; 84484; 85007; 85025; 85027; 85610; 85730; 87040; 87804; 93005; 93041; 94640; 94760; 96365; 96372; 96375

== ENCOUNTER → 2019-07-15 | Outpatient (CLI) | payer MEDICARE ==
[~2019-07-15] MED LIST changes: +CATHETER FLUSH 10 ML SYR IV PRN; +FAMO20TA5 PO; +HOLD METFORMIN - RECEIVED CONTRAST 20 ML VIAL IV SCH; +IOHEXOL 350 MG/ML 100 ML (OMNIPAQUE 350) VIAL IV ONE; -MONT10TA24 PO; +MONT10TA26 PO; +NS 100 ML (IVPB) BAG IV ONE; +PRD50T PO; +VENL150C98 PO
[2019-07-15 12:22] LABS: BUN/CREATININE RATIO 17; GFR ESTIMATED > 60
--- NOTE | 2019-07-15 14:05 | Diagnostic Imaging Report ---
EXAMINATION: CT Chest with intravenous contrast. TECHNIQUE: Multiple contiguous axial images were obtained through the chest after the uneventful administration of intravenous contrast. All CT scans use one or more of the following dose optimizing techniques: automated exposure control, MA and/or KvP adjustment based on a patient size and exam type, or iterative reconstruction. HISTORY: Lung nodule. COMPARISON: 02/07/2019 FINDINGS: There is no edema or pneumonia. No pleural effusion. No pneumothorax. There is severe confluent pulmonary emphysema in an upper lobe predominant fashion. There is biapical architectural distortion. There is scarring in both lung apices. Heart size is normal. There are mild coronary artery calcifications. No pericardial effusion. Aorta is normal in caliber. There is no axillary or supraclavicular lymphadenopathy. There is no mediastinal lymphadenopathy. Limited views of the upper abdomen are unremarkable. There are no suspicious osseus lesions. IMPRESSION: 1. There is severe emphysema without suspicious pulmonary nodule. Patient may benefit from a lung cancer screening program if she meets criteria. Dictated by: Dictated on workstation # [id number]
== END ==
LOC: RAD 11:53
PROVIDERS: ATTEND Nurse Practitioner Family
DX: J43.9 Emphysema, unspecified (principal); J45.909 Unspecified asthma, uncomplicated; R91.1 Solitary pulmonary nodule
CPT/HCPCS: 36415; 71260; 82565; 84520

== ENCOUNTER 2019-08-30 13:08 | Inpatient (IN) | payer MEDICARE ==
[~2019-08-30] VITALS: Ht 157.5 cm; Wt 63.5 kg
[2019-08-30] VITALS (8 sets, daily range): BP systolic 117–152; BP diastolic 72–109
[~2019-08-30 13:08] MED LIST changes: -CATHETER FLUSH 10 ML SYR IV PRN; -HOLD METFORMIN - RECEIVED CONTRAST 20 ML VIAL IV SCH; -IOHEXOL 350 MG/ML 100 ML (OMNIPAQUE 350) VIAL IV ONE; -NS 100 ML (IVPB) BAG IV ONE; +RT-ALBUTEROL/IPRATROPIUM 3 ML (DUONEB) VIAL ONE
--- NOTE | 2019-08-30 13:20 | NUR ---
RT CALLED FOR BIPAP
[2019-08-30] MEDS ORDERED: methylPREDNISolone 125 MG (Solu-MEDROL) VIAL IVP ONE (13:30)
[2019-08-30] MEDS ORDERED: RT-ALBUTEROL/IPRATROPIUM 3 ML (DUONEB) VIAL INH ONE (13:30)
[2019-08-30 13:36] LABS: BASOPHILS % (AUTO) 0 % (0-10); EOSINOPHILS # (AUTO) 1.1 10^3/uL (0.0-0.3); EOSINOPHILS % (AUTO) 7 % (0-10); HEMATOCRIT 44 % (35-52); LYMPHOCYTES # (AUTO) 1.8 X 10^3 (1.0-4.0); LYMPHOCYTES % (AUTO) 12 % (12-44); MEAN CORPUSCULAR HEMOGLOBIN 27 PG (25-34); MEAN CORPUSCULAR HGB CONC 32 G/DL (32-36); MEAN CORPUSCULAR VOLUME 86 FL (80-99); MONOCYTES % (AUTO) 6 % (0-12); NEUTROPHILS # (AUTO) 10.9 X 10^3 (1.8-7.8); NEUTROPHILS % (AUTO) 74 % (42-75); PLATELET COUNT 314 10^3/uL (130-400); RED CELL DISTRIBUTION WIDTH 14.1 % (10.0-14.5); WHITE BLOOD COUNT 14.8 10^3/uL (4.3-11.0)
--- NOTE | 2019-08-30 13:36 | ED Cough/URI ---
General Chief Complaint: Respiratory Problems Stated Complaint: COUGH;SOA Nursing Triage Note: ARRIVED VIA AMB TO [facility] ER WITH COMPLAINTS OF SOA. PT STATES SHE HAS A HX OF COPD. Sepsis Screen: Possible Sepsis Risk Source: patient Exam Limitations: no limitations History of Present Illness Date Seen by Provider: Aug 30, 2019 Time Seen by Provider: 13:33 Initial Comments to ER with cough and shortness of breath worse than baseline for the past2-3 days. No fevers currently or at any time. History of COPD and wears oxygen at 2 L round the clock.primary care is Lalit Nelson at [facility], also follows with Dr. Samson. Timing/Duration: getting worse Severity/Quality: productive cough Associated Symptoms: cough, shortness of breath, wheezing Allergies and Home Medications Allergies Coded Allergies: oxycodone HCl (Verified Adverse Reaction, Severe, BLACK OUT, 01/15/19) morphine (Verified Adverse Reaction, Intermediate, Blackout, 01/15/19) Home Medications Acetaminophen 500 Mg Tablet, 500-1,000 MG PO Q4H PRN for PAIN-MILD, (Reported) Albuterol Sulfate 18 Gm Hfa.aer.ad, 2 PUFF INH Q4H PRN for SHORTNESS OF BREATH, (Reported) Albuterol Sulfate 2.5 Mg/3 Ml Vial.neb, 2.5 MG NEB Q4H PRN for SHORTNESS OF BREATH, (Reported) Famotidine 20 Mg Tablet, 20 MG PO BID, (Reported) Fluticasone/Umeclidin/Vilanter 1 Each Blst.w.dev, 1 PUFF INH DAILY, (Reported) Levothyroxine Sodium 175 Mcg Tablet, 175 MCG PO DAILY, (Reported) Loratadine 10 Mg Tablet, 10 MG PO DAILY, (Reported) Nystatin 100,000 Unit/1 Ml Oral.susp, 4 ML PO QID PRN for THRUSH, (Reported) Prednisone 50 Mg Tab, 50 MG PO DAILY Prescribed by: NIKKO MOCTEZUMA on 06/18/19 0850 Propranolol HCl 40 Mg Tablet, 40 MG PO BID, (Reported) LAST FILLED #60 01-23-19 Rosuvastatin Calcium 20 Mg Tablet, 20 MG PO HS, (Reported) LAST FILLED #30 01-23-19 Venlafaxine HCl 150 Mg Cap.er.24h, 150 MG PO DAILY, (Reported) LAST FILLED #30 02-22-19 Patient Home Medication List Home Medication List Reviewed: Yes Review of Systems Review of Systems Constitutional: see HPI; No chills, No fever EENTM: see HPI Respiratory: see HPI, cough, short of breath Cardiovascular: no symptoms reported Genitourinary: no symptoms reported Musculoskeletal: no symptoms reported Skin: no symptoms reported Psychiatric/Neurological: No Symptoms Reported Past Wcpgvuv-Fumphh-Idhxbu Hx Patient Social History Alcohol Use: Denies Use Recreational Drug Use: No Drug of Choice: METH USE--DENIES IV USE--SMOKES IT Smoking Status: Current Everyday Smoker Type Used: Cigarettes 2nd Hand Smoke Exposure: Yes Recent Foreign Travel: No Contact w/Someone Who Travel: No Recent Infectious Disease Expo: No Recent Hopitalizations: No Immunizations Up To Date Tetanus Booster (TDap): Less than 5yrs Date of Pneumonia Vaccine: Jan 14, 2012 Date of Influenza Vaccine: Feb 12, 2019 Seasonal Allergies Seasonal Allergies: No Past Medical History Surgeries: Yes (BILAT CARPAL TUNNEL;L BREAST LUMPECTOMY; HIATAL HERNIA REPAIR; HAND SURGERY) Abdominal, Appendectomy, Breast, Orthopedic, Tubal Ligation Respiratory: Yes (O2 DEPENDENT AT 2L/NC) Pneumonia, Chronic Bronchitis, COPD Cardiac: Yes (CAROTID ARTERY DISEASE) High Cholesterol, Hypertension, Peripheral Vascular Neurological: No 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: No ROD PLACER History: Menopausal Sexually Transmitted Disease: No Genitourinary: No Gastrointestinal: Yes (S/P HIATAL HERNIA REPAIR) Gastroesophageal Reflux, Hiatal Hernia Musculoskeletal: Yes (CHRONIC BACK PAIN; RIGHT SHOULDER SURGERY; BILAT CARPAL TUNNEL;HAND SURGERY) Degenerate Disk Disease, Arthritis, Chronic Back Pain Endocrine: Yes Hypothyroidsim HEENT: No Cancer: Yes (L BREAST CA 2003--S/P LUMPECTOMY/CHEMO/RAD-4 MONTHS LATER DEV. NON-H LYMPH) Breast, Lymphoma Did You Recieve Any Treatments: Yes What Type of Treatment Did You: Chemotherapy, Radiation, Surgical Intervention Psychosocial: Yes (POLYSUBSTANCE ABUSE) Anxiety Integumentary: No Blood Disorders: No Family Medical History PMH: -LEFT BREAST CANCER 2003--S/P LUMPECTOMY, CHEMO AND RADIATION; 4 MONTHS LATER, DEVELOPED NON-HODGKIN'S LYMPOMA--S/P CHEMOTHERAPY PSH: -BILATERAL CARPAL TUNNEL -HAND SURGERY -RIGHT SHOULDER SURGERY. -HIATAL HERNIA REPAIR -LEFT BREAST LUMPECTOMY -BTL -APPENDECTOMY Physical Exam Vital Signs - First Documented 08/30/19 13:08 Temp 36.6 Pulse 130 Resp 24 B/P (MAP) 122/95 (104) Pulse Ox 97 O2 Delivery OxyMask Capillary Refill : Less Than 3 Seconds Height: 5'2.00" Weight: 117lbs. 0.0oz. 53.982517xz; 24.00 BMI Method:Stated General Appearance: WD/WN, moderate distress (speaks in very short phrases, audible wheezing) Eyes: Bilateral Eye Normal Inspection, Bilateral Eye PERRL, Bilateral Eye EOMI HEENT: PERRL/EOMI, normal ENT inspection Respiratory: respiratory distress, decreased breath sounds, accessory muscle use, wheezing Gastrointestinal: normal bowel sounds, soft Neurologic/Psychiatric: alert, normal mood/affect Skin: normal color, warm/dry Focused Exam Lactate Level 08/30/19 13:20: Lactic Acid Level 1.68 Lactic Acid Level Laboratory Tests Test 08/30/19 13:20 Lactic Acid Level 1.68 MMOL/L (0.50-2.00) Progress/Results/Core Measures Suspected Sepsis Recent Fever Within 48 Hours: No Infection Criteria Present: Suspected New Infection New/Unexplained Altered Menta: No Sepsis Screen: Possible Sepsis Risk SIRS Temperature: Pulse: 130 Respiratory Rate: 24 Laboratory Tests 08/30/19 13:20: White Blood Count 14.8H Blood Pressure 122 /95 Mean: 104 08/30/19 13:20: Lactic Acid Level 1.68 Laboratory Tests 08/30/19 13:20: Creatinine 0.65, Platelet Count 314, Total Bilirubin 0.2 Results/Orders Lab Results Laboratory Tests Test 08/30/19 13:20 08/30/19 13:28 Range/Units White Blood Count 14.8 H 4.3-11.0 10^3/uL Red Blood Count 5.17 4.35-5.85 10^6/uL Hemoglobin 14.0 11.5-16.0 G/DL Hematocrit 44 35-52 % Mean Corpuscular Volume 86 80-99 FL Mean Corpuscular Hemoglobin 27 25-34 PG Mean Corpuscular Hemoglobin Concent 32 32-36 G/DL Red Cell Distribution Width 14.1 10.0-14.5 % Platelet Count 314 130-400 10^3/uL Mean Platelet Volume 10.0 7.4-10.4 FL Neutrophils (%) (Auto) 74 42-75 % Lymphocytes (%) (Auto) 12 12-44 % Monocytes (%) (Auto) 6 0-12 % Eosinophils (%) (Auto) 7 0-10 % Basophils (%) (Auto) 0 0-10 % Neutrophils # (Auto) 10.9 H 1.8-7.8 X 10^3 Lymphocytes # (Auto) 1.8 1.0-4.0 X 10^3 Monocytes # (Auto) 1.0 0.0-1.0 X 10^3 Eosinophils # (Auto) 1.1 H 0.0-0.3 10^3/uL Basophils # (Auto) 0.0 0.0-0.1 10^3/uL Neutrophils % (Manual) 75 % Lymphocytes % (Manual) 11 % Monocytes % (Manual) 4 % Eosinophils % (Manual) 8 % Basophils % (Manual) 1 % Band Neutrophils 1 % Blood Morphology Comment NORMAL Sodium Level 140 135-145 MMOL/L Potassium Level 4.5 3.6-5.0 MMOL/L Chloride Level 106 98-107 MMOL/L Carbon Dioxide Level 23 21-32 MMOL/L Anion Gap 11 5-14 MMOL/L Blood Urea Nitrogen 12 7-18 MG/DL Creatinine 0.65 0.60-1.30 MG/DL Estimat Glomerular Filtration Rate > 60 BUN/Creatinine Ratio 18 Glucose Level 107 H 70-105 MG/DL Lactic Acid Level 1.68 0.50-2.00 MMOL/L Calcium Level 9.4 8.5-10.1 MG/DL Corrected Calcium 9.2 8.5-10.1 MG/DL Total Bilirubin 0.2 0.1-1.0 MG/DL Aspartate Amino Transf (AST/SGOT) 22 5-34 U/L Alanine Aminotransferase (ALT/SGPT) 17 0-55 U/L Alkaline Phosphatase 121 40-136 U/L C-Reactive Protein High Sensitivity 0.14 0.00-0.50 MG/DL Total Protein 7.4 6.4-8.2 GM/DL Albumin 4.3 3.2-4.5 GM/DL Blood Gas Puncture Site LEFT RADIAL Blood Gas Patient Temperature 97.2 Arterial Blood pH 7.28 *L 7.37-7.43 Arterial Blood Partial Pressure CO2 58 H 35-45 MMHG Arterial Blood Partial Pressure O2 109 H 79-93 MMHG Arterial Blood HCO3 26 23-27 MMOL/L Arterial Blood Total CO2 28.3 21.0-31.0 MMOL/L Arterial Blood Oxygen Saturation 99 94-100 % Arterial Blood Base Excess 0.2 -2.5-2.5 MMOL/L Robby Test POSITIVE Blood Gas Ventilator Setting NO Blood Gas Inspired Oxygen 3 L My Orders Orders - REYES GEORGE APRN Cbc With Automated Diff (08/30/19 13:28) Comprehensive Metabolic Panel (08/30/19 13:28) Blood Culture (08/30/19 13:28) Lactic Acid Analyzer (08/30/19 13:28) BNP (08/30/19 13:28) Chest 1 View, Ap/Pa Only (08/30/19 13:28) Arterial Blood Gas (08/30/19 13:28) Ed Iv/Invasive Line Start (08/30/19 13:28) Bipap (Bilevel) Set Up (08/30/19 13:28) Methylprednisolone Sod Succ (Solu-Medrol (08/30/19 13:30) Albuterol/Ipra Inhalation Soln (Duoneb I (08/30/19 13:30) Svn Small Volume Nebulizer (08/30/19 13:28) Procalcitonin (Pct) (08/30/19 13:37) Hs C Reactive Protein (08/30/19 13:37) Manual Differential (08/30/19 13:20) Lorazepam Injection (Ativan Injection) (08/30/19 13:41) Medications Given in ED Current Medications Medications Dose Ordered Sig/Phani Route Start Time Stop Time Status Last Admin Dose Admin Albuterol/ Ipratropium 3 ml ONCE ONCE INH 08/30/19 13:30 08/30/19 13:31 DC 08/30/19 13:28 3 ML Methylprednisolone Sodium Succinate 125 mg ONCE ONCE IVP 08/30/19 13:30 08/30/19 13:31 DC 08/30/19 13:45 125 MG Vital Signs/I&O 08/30/19 13:08 Temp 36.6 Pulse 130 Resp 24 B/P (MAP) 122/95 (104) Pulse Ox 97 O2 Delivery OxyMask Capillary Refill : Less Than 3 Seconds Blood Pressure Mean: 104 Departure Communication (Admissions) Time/Spoke to Admitting Phy: 13:56 Family Conversation NAME: MICHAEL MARK [facility] REC#: [id number] PT STATUS: REG ER : 1955 PHYSICIAN: REYES GEORGE APRN ADMIT DATE: 08/30/19/ER Draft Date of Exam:08/30/19 CHEST 1 VIEW, AP/PA ONLY INDICATION: Cough and shortness of air. TIME OF EXAM: 1:43 PM Correlation is made with prior chest from 06/14/2019. The heart size is stable. There is right convexity thoracic scoliotic curvature. Lungs are hyperinflated consistent with COPD. There is a right apical pleural parenchymal scarring, stable. No infiltrates are identified. No effusion or pneumothorax is detected. IMPRESSION: No acute cardiopulmonary process is detected. Dictated on workstation # [id number] Dict: 08/30/19 1352 Trans: 08/30/19 1354 CV [id number] Interpreted by: ROXANA AGUILAR MD Electronically signed by: She refuses bipap, is DNI status as well. We tried BiPAP 16/8 initially which she refused, we reduced the settings to 10/5, she still refused that ripping off her face. I mentioned hospice to her, she is not interested at this point but she will have a palliative care consult given her advanced disease state and intolerance to medical care. Impression Primary Impression: Respiratory distress Additional Impression: COPD exacerbation Disposition: ADMITTED INPATIENT Condition: Stable Admissions Decision to Admit Reason: Admit from ER (General) Decision to Admit/Date: Aug 30, 2019 Time/Decision to Admit Time: 13:35 Departure-Patient Inst. Referrals: [facility] (PCP) Primary Care Physician OUMOU NELSON (Family) Primary Care Physician REYES GEORGE APRN Aug 30, 2019 13:36
[2019-08-30 13:37] LABS: ABG BASE EXCESS 0.2 MMOL/L (-2.5-2.5); ABG OXYGEN SATURATION 99 % (94-100); ABG PCO2 58 MMHG (35-45); ABG PO2 109 MMHG (79-93); ABG TCO2 28.3 MMOL/L (21.0-31.0)
[2019-08-30 13:39] LABS: ALLENS TEST POSITIVE; INSPIRED O2 3 L; PATIENT TEMP 97.2; VENTILATOR NO
[2019-08-30] MEDS ORDERED: LORazepam INJ 2 MG/ML (ATIVAN) VIAL ONE (13:41)
--- NOTE | 2019-08-30 13:42 | NUR ---
RT HERE SETTING THE PT UP ON BIPAP
[2019-08-30 13:44] LABS: ABG PH 7.28 (7.37-7.43)
[2019-08-30 13:45] LABS: ALBUMIN 4.3 GM/DL (3.2-4.5); CHLORIDE 106 MMOL/L (98-107); POTASSIUM 4.5 MMOL/L (3.6-5.0); SODIUM 140 MMOL/L (135-145)
[2019-08-30 13:47] LABS: CALCIUM 9.4 MG/DL (8.5-10.1)
[2019-08-30 13:48] LABS: GLUCOSE 107 MG/DL (70-105); TOTAL PROTEIN 7.4 GM/DL (6.4-8.2)
[2019-08-30 13:49] LABS: CARBON DIOXIDE 23 MMOL/L (21-32)
--- NOTE | 2019-08-30 13:49 | NUR ---
PT UNABLE TO TOLERATE BIPAP DUE TO CLAUSTERPHOBIA. ATIVAN GIVEN.
[2019-08-30 13:50] LABS: BILIRUBIN,TOTAL 0.2 MG/DL (0.1-1.0)
[2019-08-30 13:51] LABS: ALKALINE PHOSPHATASE 121 U/L (40-136); CREATININE SERUM 0.65 MG/DL (0.60-1.30); GFR ESTIMATED > 60
[2019-08-30 13:52] LABS: BUN/CREATININE RATIO 18
[2019-08-30 13:53] LABS: BAND NEUTROPHILS 1 %; BASOPHILS % (MANUAL) 1 %; EOSINOPHILS % (MANUAL) 8 %; LYMPHOCYTES % (MANUAL) 11 %; MONOCYTES % (MANUAL) 4 %; NEUTROPHILS % (MANUAL) 75 %; RBC MORPH NORMAL
[2019-08-30 13:54] LABS: ALANINE AMINOTRANSFERASE 17 U/L (0-55)
--- NOTE | 2019-08-30 13:54 | Diagnostic Imaging Report ---
INDICATION: Cough and shortness of air. TIME OF EXAM: 1:43 PM Correlation is made with prior chest from 06/14/2019. The heart size is stable. There is right convexity thoracic scoliotic curvature. Lungs are hyperinflated consistent with COPD. There is a right apical pleural parenchymal scarring, stable. No infiltrates are identified. No effusion or pneumothorax is detected. IMPRESSION: No acute cardiopulmonary process is detected. Dictated by: Dictated on workstation # [id number]
[2019-08-30] MEDS ORDERED: LORazepam INJ 2 MG/ML (ATIVAN) VIAL IVP PRN (14:15)
--- NOTE | 2019-08-30 14:35 | NUR ---
MICHAEL MARK admitted to room 408-1, with an admitting diagnosis of COPD AND RESPIRATORY DISTRESS, on 08/30/19 from ED via STRETCHER, accompanied by ED STAFF. MICHAEL MARK introduced to surroundings, call light, bed controls, phone, TV, temperature control, lights, meal times, smoking policy, visitor policy, side rail policy, bathrooms and showers. Patient Rights given to patient in the handbook. MICHAEL MARK verbalizes understanding that [facility] is not responsible for the loss or damage to any personal effects or valuables that are kept in the patients possession during their hospitalization. The following Patient Care Plans were discussed with the PATIENT: Discharge Planning, CHRONIC OBSTRUCTIVE PULMONARY DISEASE and KNOWLEDGE DEFICIT. MICHAEL MARK verbalizes understanding of Interdisciplinary Patient Education. Patient and/or family were informed about the Rapid Response Team and its purpose.
--- NOTE | 2019-08-30 15:06 | NUR ---
Palliative Care RN in to see patient. She is a new admit here for AE COPD, Resp acidosis. Nurse asked me to talk to the patient and she felt she does not understand the DNR/DNR. When talking to the patient she reports that she would not want to be on the BIPAP as she cannot stand the face mask, nor would she want to be intubated. SHe did say that she would want compressions if it came to that. I educated he on the difficulty of compressions without ventilation, and the likelihood that she would pass away if we were not allowed to do both. She understood and maintained that she does not want the BiPAP or intubation. She says that she has let her daughters know that she is here and assured me that they are aware of her wishes. I talked tot he patient about Vapotherm and she reports that she has used this before and would allow for this again if needed.
[2019-08-30] MEDS ORDERED: CATHETER FLUSH 10 ML SYR IV PRN (15:15)
[2019-08-30] MEDS ORDERED: MONT10TA26 PO (15:24)
[2019-08-30] MEDS ORDERED: VARE0.5T PO (15:27)
--- NOTE | 2019-08-30 15:28 | NUR ---
SPOKE WITH THE PT AND WENT THRU THE EXT MED HISTORY TO COMPLETE THE MED REC LEVOTHYROXINE WAS LAST FILLED 06-20-2019 #30/30DS- THE PT STATES SHE DOESNT ALWAYS REMEMBER TO TAKE IT. THE PAST DUE FILL IS DOCUMENTED ON THE MED REC PROPRANOLOL 80MG 1 TAB BID- THE PT SAYS SHE HAS NOT BEEN TAKING THIS MEDICATIONS BECAUSE SHE DID NOT LIKE THE SIDE EFFECTS THEREFORE I DID NOT ADD THIS TO THE MED REC CHANTIX: PT RECENTLY PICKED UP A STARTING PACK ON 08-08-2019; THE PT IS CURRENTLY TAKING 0.5MG TAB ONCE DAILY. WHEN I SHOWED HER WHAT THE PACK LOOKS LIKE (THE DIRECTIONS WOULD BE 0.5MG DAILY X 3 DAYS, THEN INCREASE TO 0.5MG BID X 4 DAYS, THEN 1MG BID THEREAFTER) THE PT THINKS SHE WAS NOT USING IT CORRECTLY AND HAD NOT BEEN TAKING IT BID. OTC MEDS: TYLENOL
[2019-08-30] MEDS: ENOXAPARIN 40 MG/0.4 ML (LOVENOX) SYR SC SCH (15:41)
[2019-08-30] MEDS: cefTRIAXone 1,000 MG/SWFI 10 ML IV PUSH IV SCH ×2 (15:41)
[2019-08-30] MEDS: LACTATED RINGERS 1,000 ML IV SCH (15:41)
[2019-08-30] MEDS ORDERED: HYDROcodone/APAP 5 MG/325 MG (LORTAB) TAB PO PRN (16:30)
[2019-08-30] MEDS ORDERED: diphenhydrAMINE 25 MG TAB (BENADRYL) PO PRN (16:30)
[2019-08-30] MEDS ORDERED: LOPERAMIDE 2 MG (IMODIUM) TABLET PO PRN (16:30)
[2019-08-30] MEDS ORDERED: DOCUSATE SODIUM 100 MG (COLACE) CAP PO PRN (16:30)
[2019-08-30] MEDS ORDERED: MELATONIN 3 MG TABLET PO PRN (16:30)
[2019-08-30] MEDS ORDERED: ONDANSETRON 4 MG/2 ML (SDV) Z0FRAN IVP PRN (16:30)
[2019-08-30] MEDS ORDERED: fentaNYL INJECTION 100 MCG/2 ML AMP IVP PRN (16:30)
[2019-08-30] MEDS ORDERED: ACETAMINOPHEN 500 MG TAB (TYLENOL) PO PRN ×2 (16:30)
[2019-08-30] MEDS ORDERED: ALPRAZolam 0.25 MG (XANAX) TAB PO PRN (16:30)
[2019-08-30] MEDS ORDERED: ONDANSETRON 4 MG (ZOFRAN) ORAL DISSOLVE TAB PO PRN (16:30)
[2019-08-30] MEDS ORDERED: CALCIUM CARBONATE 500 MG (TUMS) TAB.CHEW PO PRN (16:30)
[2019-08-30] MEDS ORDERED: RT-ALBUTEROL/IPRATROPIUM 3 ML (DUONEB) VIAL INH PRN (17:15)
--- NOTE | 2019-08-30 17:55 | NUR ---
CALLED RESPIRATORY THERAPIST TO REQUEST A BREATHING TREATMENT,
--- NOTE | 2019-08-30 18:00 | NUR ---
TALKED TO PATIENT ABOUT THE 2 MEDICATIONS NOT AVAILABLE FROM OUR PHARMACY. SHE WILL CALL AND SEE IF SOMEONE CAN BRING THEM FROM HOME. SHE WILL LET THEM KNOW TO TAKE THEM TO THE EMERGENCY ROOM ENTRANCE THEY WILL CALL FOR A STAFF MEMBER TO GO DOWN AND PICK THEM UP FOR HER.
[2019-08-30] MEDS: RT-ALBUTEROL/IPRATROPIUM 3 ML (DUONEB) VIAL INH SCH ×2 (18:54→22:57)
[2019-08-30] MEDS: SENNA W/DOCUSATE (SENOKOT S) TABLET PO SCH (20:30)
[2019-08-30] MEDS: methylPREDNISolone 40 MG/ML (Solu-MEDROL) VIAL IV SCH (20:31)
[2019-08-31] VITALS: BP 124/76
[2019-08-31] MEDS: RT-ALBUTEROL/IPRATROPIUM 3 ML (DUONEB) VIAL INH SCH ×6 (03:06→22:30)
[2019-08-31] MEDS: LACTATED RINGERS 1,000 ML IV SCH (04:43)
[2019-08-31 05:00] VITALS: BP 121/74
[2019-08-31] MEDS: methylPREDNISolone 40 MG/ML (Solu-MEDROL) VIAL IV SCH ×3 (05:28→22:40)
[2019-08-31] MEDS: LEVOTHYROXINE 75 MCG (LEVOTHROID) TABLET PO SCH (05:28)
[2019-08-31] MEDS: LEVOTHYROXINE 100 MCG (LEVOTHROID) TAB PO SCH (05:29)
[2019-08-31 08:00] VITALS: BP 158/81
[2019-08-31] MEDS: SENNA W/DOCUSATE (SENOKOT S) TABLET PO SCH ×2 (08:37→22:41)
[2019-08-31] MEDS: MONTELUKAST 10 MG (SINGULAIR) TAB PO SCH (08:37)
[2019-08-31] MEDS ORDERED: NON-FORMULARY MEDICATION 1 EA EA (Fluticasone/Umeclidin/Vilanter (Trelegy Ellipta 100-62.5 INH SCH (09:00)
[2019-08-31] MEDS ORDERED: VARENICLINE TARTRATE 0.5 MG PO SCH (09:00)
[2019-08-31] MEDS ORDERED: NON-FORMULARY MEDICATION 1 EA EA (Levothyroxine Sodium 175 MCG) PO SCH (09:00)
[2019-08-31 12:00] VITALS: BP 107/60
--- NOTE | 2019-08-31 12:28 | History & Physical-Hospitalist ---
History of Present Illness HPI/Chief Complaint CC: Dyspnea HPI: This is a 63yoWF clinic patient of [facility] who has end stage COPD who continues to smoke who presented to the ER with dyspnea and respiratory insufficiency. Patient declined intubation and biPAP. Patient feels much better. Cough is the only issue she reports. Dr Samson appreciated. Patient tolerating meds well. Eating better. She uses O2 continuously at home. Source: patient Date Seen 08/31/19 Time Seen by a Provider: 12:30 Attending Physician Glenna Arredondo MD [facility] Referring Physician Date of Admission Aug 30, 2019 at 13:50 Home Medications & Allergies Home Medications Reviewed patient Home Medication Reconciliation performed by pharmacy medication reconciliations electronics warfare technician and/or nursing. Patients Allergies have been reviewed. Allergies Allergies Coded Allergies oxycodone HCl (Verified Adverse Reaction, Severe, BLACK OUT, 01/15/19) morphine (Verified Adverse Reaction, Intermediate, Blackout, 01/15/19) Past Rbuwokl-Uyhwvf-Geplxv Hx Past Med/Social Hx: Reviewed Nursing Past Med/Soc Hx, Reviewed and Corrections made Patient Social History Marrital Status: single Employed/Student: unemployed Alcohol Use: Denies Use Recreational Drug Use: No Drug of Choice: METH USE--DENIES IV USE--SMOKES IT Smoking Status: Current Everyday Smoker Type Used: Cigarettes 2nd Hand Smoke Exposure: Yes Recent Foreign Travel: No Contact w/other who traveled: Yes (daughter flew from [facility] to visit for 3 weeks in the middle of [facility]) Recent Hopitalizations: No Recent Infectious Disease Expo: No Immunizations Up To Date Tetanus Booster (TDap): Less than 5yrs Date of Pneumonia Vaccine: May 17, 2019 Date of Influenza Vaccine: Feb 12, 2019 Seasonal Allergies Seasonal Allergies: No Past Medical History Surgeries: Abdominal, Appendectomy, Breast, Orthopedic, Tubal Ligation Respiratory: COPD, Emphysema, Pneumonia Cardiac: High Cholesterol, Hypertension, Peripheral Vascular 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: No Sexually Transmitted Disease: No Menopausal Gastrointestinal: Gastroesophageal Reflux, Hiatal Hernia Musculoskeletal: Degenerate Disk Disease, Arthritis, Chronic Back Pain Endocrine: Hypothyroidsim Cancer: Breast, Lymphoma Did You Recieve Any Treatments: Yes What Type of Treatment Did You: Chemotherapy, Radiation, Surgical Intervention Psychosocial: Anxiety History of Blood Disorders: No Family History Neoplasm 19 FATHER (LUNG) 19 MOTHER G8 SISTER (OVARIAN) PMH: -LEFT BREAST CANCER 2003--S/P LUMPECTOMY, CHEMO AND RADIATION; 4 MONTHS LATER, DEVELOPED NON-HODGKIN'S LYMPOMA--S/P CHEMOTHERAPY PSH: -BILATERAL CARPAL TUNNEL -HAND SURGERY -RIGHT SHOULDER SURGERY. -HIATAL HERNIA REPAIR -LEFT BREAST LUMPECTOMY -BTL -APPENDECTOMY Review of Systems Constitutional: see HPI Respiratory: cough, dyspnea on exertion, short of breath, wheezing Physical Exam Physical Exam Vital Signs Vital Signs - First Documented 08/30/19 08/30/19 13:08 13:30 Temp 36.6 Pulse 130 Resp 24 B/P (MAP) 122/95 (104) Pulse Ox 97 O2 Delivery OxyMask O2 Flow Rate 3.00 Capillary Refill : Less Than 3 Seconds Height, Weight, BMI Height: 5'2.00" Weight: 117lbs. 0.0oz. 53.320293uc; 25.43 BMI Method:Stated General Appearance: No Apparent Distress, Chronically ill Eyes: Right Eye Normal Inspection, Right Eye PERRL HEENT: PERRL/EOMI, Normal ENT Inspection, Pharynx Normal, Moist Mucous Membranes Neck: Full Range of Motion, Normal Inspection, Non Tender Respiratory: Chest Non Tender, No Accessory Muscle Use, No Respiratory Distress, Crackles, Decreased Breath Sounds, Wheezing Cardiovascular: Regular Rate, Rhythm, No Edema, No Gallop, No JVD, No Murmur, Normal Peripheral Pulses Gastrointestinal: Normal Bowel Sounds, No Organomegaly, No Pulsatile Mass, Non Tender, Soft Back: Normal Inspection, No CVA Tenderness, No Vertebral Tenderness Extremity: Normal Capillary Refill, Normal Inspection, Normal Range of Motion, Non Tender, No Calf Tenderness, No Pedal Edema Neurologic/Psychiatric: Alert, Oriented x3, No Motor/Sensory Deficits, Normal Mood/Affect Skin: Normal Color, Warm/Dry Lymphatic: No Adenopathy Results Results/Procedures Labs Laboratory Tests 08/30/19 13:20 Patient resulted labs reviewed. Assessment/Plan Admission Diagnosis Assessment: Respiratory insufficiency declined intubation and biPAP AECOPD Bronchitis acute bacterial type Smoker Meth user Cough Plan: Antitussives Home meds IV steroids O2 Nebs Admission Status: Inpatient Order (span 2 midnights) Reason for Inpatient Admission: resp insufficiency Diagnosis/Problems Diagnosis/Problems (1) Respiratory distress Status: Acute (2) COPD exacerbation Status: Acute (3) Smoker Status: Acute (4) Hypertension Status: Chronic Clinical Quality Measures DVT/VTE Risk/Contraindication: Risk Factor Score Per Nursin RFS Level Per Nursing on Admit: 4+=Very High JAGDEEP HAYNES DO Aug 31, 2019 12:28
[2019-08-31] MEDS: cefTRIAXone 1,000 MG/SWFI 10 ML IV PUSH IV SCH ×2 (14:20)
[2019-08-31] MEDS: ENOXAPARIN 40 MG/0.4 ML (LOVENOX) SYR SC SCH (14:20)
[2019-08-31] MEDS: BENZONATATE 100 MG (TESSALON) CAPSULE PO SCH ×2 (14:20→22:41)
[2019-08-31] MEDS: guaiFENesin/CODEINE (ROBITUSSIN AC) 10ML UDC PO PRN (14:20)
[2019-08-31 16:00] VITALS: BP 134/78
[2019-08-31 19:43] VITALS: BP 130/71
[2019-09-01 00:09] VITALS: BP 166/83
[2019-09-01] MEDS: RT-ALBUTEROL/IPRATROPIUM 3 ML (DUONEB) VIAL INH SCH ×6 (02:23→22:43)
[2019-09-01 04:00] VITALS: BP 108/67
[2019-09-01 05:46] LABS: BASOPHILS % (AUTO) 0 % (0-10); EOSINOPHILS % (AUTO) 0 % (0-10); HEMATOCRIT 39 % (35-52); HEMOGLOBIN 12.1 G/DL (11.5-16.0); LYMPHOCYTES # (AUTO) 0.6 X 10^3 (1.0-4.0); LYMPHOCYTES % (AUTO) 5 % (12-44); MEAN CORPUSCULAR HEMOGLOBIN 27 PG (25-34); MEAN CORPUSCULAR HGB CONC 31 G/DL (32-36); MEAN CORPUSCULAR VOLUME 86 FL (80-99); MEAN PLATELET VOLUME 10.7 FL (7.4-10.4); MONOCYTES # (AUTO) 0.3 X 10^3 (0.0-1.0); MONOCYTES % (AUTO) 2 % (0-12); NEUTROPHILS # (AUTO) 13.4 X 10^3 (1.8-7.8); NEUTROPHILS % (AUTO) 93 % (42-75); PLATELET COUNT 280 10^3/uL (130-400); RED CELL DISTRIBUTION WIDTH 14.2 % (10.0-14.5); WHITE BLOOD COUNT 14.3 10^3/uL (4.3-11.0)
[2019-09-01 05:56] LABS: ALBUMIN 3.7 GM/DL (3.2-4.5)
[2019-09-01 05:57] LABS: CHLORIDE 110 MMOL/L (98-107); POTASSIUM 4.3 MMOL/L (3.6-5.0); SODIUM 143 MMOL/L (135-145)
[2019-09-01 05:58] LABS: CALCIUM 9.2 MG/DL (8.5-10.1)
[2019-09-01 05:59] LABS: GLUCOSE 127 MG/DL (70-105); TOTAL PROTEIN 6.2 GM/DL (6.4-8.2)
[2019-09-01 06:00] LABS: CARBON DIOXIDE 22 MMOL/L (21-32)
[2019-09-01 06:01] LABS: BILIRUBIN,TOTAL 0.2 MG/DL (0.1-1.0)
[2019-09-01 06:02] LABS: ALKALINE PHOSPHATASE 88 U/L (40-136)
[2019-09-01 06:03] LABS: CREATININE SERUM 0.63 MG/DL (0.60-1.30); GFR ESTIMATED > 60
[2019-09-01 06:04] LABS: BUN/CREATININE RATIO 24
[2019-09-01 06:05] LABS: ALANINE AMINOTRANSFERASE 15 U/L (0-55)
[2019-09-01] MEDS: LEVOTHYROXINE 100 MCG (LEVOTHROID) TAB PO SCH (06:22)
[2019-09-01] MEDS: LEVOTHYROXINE 75 MCG (LEVOTHROID) TABLET PO SCH (06:22)
[2019-09-01] MEDS: methylPREDNISolone 40 MG/ML (Solu-MEDROL) VIAL IV SCH ×3 (06:22→21:40)
[2019-09-01] MEDS: guaiFENesin/CODEINE (ROBITUSSIN AC) 10ML UDC PO PRN ×3 (06:26→21:40)
[2019-09-01 08:00] VITALS: BP 100/60
[2019-09-01] MEDS: BENZONATATE 100 MG (TESSALON) CAPSULE PO SCH ×3 (08:29→21:40)
[2019-09-01] MEDS: SENNA W/DOCUSATE (SENOKOT S) TABLET PO SCH ×2 (08:29→21:40)
[2019-09-01] MEDS: MONTELUKAST 10 MG (SINGULAIR) TAB PO SCH (08:29)
--- NOTE | 2019-09-01 11:21 | Progress Note - Hospitalist ---
Subjective HPI/CC On Admission Date Seen by Provider: Sep 01, 2019 Time Seen by Provider: 11:00 CC: Dyspnea HPI: This is a 63yoWF clinic patient of [facility] who has end stage COPD who continues to smoke who presented to the ER with dyspnea and respiratory insufficiency. Patient declined intubation and biPAP. Patient feels much better. Cough is the only issue she reports. Dr Samson appreciated. Patient tolerating meds well. Eating better. She uses O2 continuously at home. Subjective/Events-last exam Patient doing well Cough and dyspnea is still present Antitussives improving cough No pain reported BM not yet but did take Senna today Eating well No falls O2 maintained Review of Systems General: Fatigue Pulmonary: Dyspnea Focused Exam Lactate Level 08/30/19 13:20: Lactic Acid Level 1.68 Objective Exam Vital Signs Vital Signs Date Time Temp Pulse Resp B/P (MAP) Pulse Ox O2 Delivery O2 Flow Rate FiO2 09/01/19 14:36 96 Nasal Cannula 3.00 09/01/19 12:00 37.0 87 20 120/59 (79) Capillary Refill : Less Than 3 Seconds General Appearance: No Apparent Distress, WD/WN, Chronically ill Respiratory: Chest Non Tender, No Accessory Muscle Use, No Respiratory Distress, Crackles, Decreased Breath Sounds, Wheezing Cardiovascular: Regular Rate, Rhythm Neurologic/Psychiatric: Alert, Oriented x3, No Motor/Sensory Deficits, Normal Mood/Affect Results/Procedures Lab Laboratory Tests 09/01/19 04:48 Patient resulted labs reviewed. Assessment/Plan Assessment and Plan Assess & Plan/Chief Complaint Assessment: Respiratory insufficiency declined intubation and biPAP now much improved AECOPD on IV steroids Bronchitis acute bacterial type on abx empiric Smoker Meth user Cough Plan: Antitussives Home meds IV steroids O2 Nebs DC tomorrow Diagnosis/Problems Diagnosis/Problems (1) Respiratory distress Status: Acute (2) COPD exacerbation Status: Acute (3) Smoker Status: Acute (4) Hypertension Status: Chronic Clinical Quality Measures DVT/VTE Risk/Contraindication: Risk Factor Score Per Nursin RFS Level Per Nursing on Admit: 4+=Very High JAGDEEP HAYNES DO Sep 01, 2019 11:21
[2019-09-01 12:00] VITALS: BP 120/59
[2019-09-01] MEDS: cefTRIAXone 1,000 MG/SWFI 10 ML IV PUSH IV SCH ×2 (14:18)
[2019-09-01] MEDS: ENOXAPARIN 40 MG/0.4 ML (LOVENOX) SYR SC SCH (14:19)
[2019-09-01 16:00] VITALS: BP 120/69
[2019-09-01 19:58] VITALS: BP 121/68
[2019-09-02 00:14] VITALS: BP 156/88
[2019-09-02] MEDS: RT-ALBUTEROL/IPRATROPIUM 3 ML (DUONEB) VIAL INH SCH ×3 (02:40→10:16)
[2019-09-02 04:10] VITALS: BP 119/68
[2019-09-02 04:39] LABS: BASOPHILS % (AUTO) 0 % (0-10); EOSINOPHILS % (AUTO) 0 % (0-10); HEMATOCRIT 39 % (35-52); LYMPHOCYTES # (AUTO) 0.8 X 10^3 (1.0-4.0); LYMPHOCYTES % (AUTO) 6 % (12-44); MEAN CORPUSCULAR HEMOGLOBIN 27 PG (25-34); MEAN CORPUSCULAR HGB CONC 31 G/DL (32-36); MEAN CORPUSCULAR VOLUME 86 FL (80-99); MEAN PLATELET VOLUME 10.5 FL (7.4-10.4); MONOCYTES # (AUTO) 0.5 X 10^3 (0.0-1.0); MONOCYTES % (AUTO) 4 % (0-12); NEUTROPHILS % (AUTO) 91 % (42-75); PLATELET COUNT 267 10^3/uL (130-400); RED CELL DISTRIBUTION WIDTH 13.9 % (10.0-14.5); WHITE BLOOD COUNT 13.2 10^3/uL (4.3-11.0)
[2019-09-02 05:01] LABS: ALANINE AMINOTRANSFERASE 14 U/L (0-55); ALBUMIN 3.6 GM/DL (3.2-4.5); ALKALINE PHOSPHATASE 89 U/L (40-136); BILIRUBIN,TOTAL 0.1 MG/DL (0.1-1.0); BUN/CREATININE RATIO 27; CALCIUM 9.1 MG/DL (8.5-10.1); CARBON DIOXIDE 25 MMOL/L (21-32); CHLORIDE 108 MMOL/L (98-107); CREATININE SERUM 0.62 MG/DL (0.60-1.30); GFR ESTIMATED > 60; GLUCOSE 111 MG/DL (70-105); POTASSIUM 4.5 MMOL/L (3.6-5.0); SODIUM 141 MMOL/L (135-145); TOTAL PROTEIN 5.9 GM/DL (6.4-8.2)
[2019-09-02] MEDS: LEVOTHYROXINE 75 MCG (LEVOTHROID) TABLET PO SCH (05:42)
[2019-09-02] MEDS: LEVOTHYROXINE 100 MCG (LEVOTHROID) TAB PO SCH (05:42)
[2019-09-02] MEDS: methylPREDNISolone 40 MG/ML (Solu-MEDROL) VIAL IV SCH (05:43)
[2019-09-02 08:00] VITALS: BP 136/78
[2019-09-02] MEDS: BENZONATATE 100 MG (TESSALON) CAPSULE PO SCH (08:34)
[2019-09-02] MEDS: MONTELUKAST 10 MG (SINGULAIR) TAB PO SCH (08:34)
[2019-09-02] MEDS: SENNA W/DOCUSATE (SENOKOT S) TABLET PO SCH (08:34)
--- NOTE | 2019-09-02 09:13 | NUR ---
PALLIATIVE CARE RN in to see patient. I have spoken with her this morning regarding the advanced COPD that she has. We talked/educated about the Hospice benefit. 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 We talked of the choices available to her in the [facility], and I suggested that she take this time after discharge to maybe call and talk to the about there program. I spoke of the [facility] program through [facility] being a possible foot in the door program. SHe appreciated all of the information. She will likely discharge today. She will need the person that picks her up to bring an additional "go canister" as there one she has is almost empty. There is nothing morefor me to assist with in this discharge.
[2019-09-02] MEDS ORDERED: PRED10TA22 PO (11:19)
[2019-09-02] MEDS ORDERED: BENZ100C18 PO (11:19)
[2019-09-02] MEDS ORDERED: GUAI473L29 PO (11:19)
[2019-09-02] MEDS ORDERED: CEFD300C3 PO (11:19)
--- NOTE | 2019-09-02 11:20 | Discharge Summary ---
Discharge Summary Hospital Course Was the Problem List Reviewed?: Yes Problems/Dx: (1) Respiratory distress Status: Acute (2) COPD exacerbation Status: Acute (3) Smoker Status: Acute (4) Hypertension Status: Chronic Hospital Course Date of Admission: Aug 30, 2019 at 13:50 Admission Diagnosis : Family Physician/Provider: Maximiliano Nelson Date of Discharge: 09/02/19 Discharge Diagnosis: AECOPD, Bronchitis, smoker, O2 dependence Hospital Course: Patient was admitted but declined biPAP and intubation. Smoking cessation counseled and palliative care consult performed. IV steroids and abx initiated with good results. Overall she remained stable and was deemed stable for DC. Labs and Pending Lab Test: Laboratory Tests 09/02/19 04:05: White Blood Count 13.2H, Red Blood Count 4.52, Hemoglobin 12.0, Hematocrit 39, Mean Corpuscular Volume 86, Mean Corpuscular Hemoglobin 27, Mean Corpuscular Hemoglobin Concent 31L, Red Cell Distribution Width 13.9, Platelet Count 267, Mean Platelet Volume 10.5H, Neutrophils (%) (Auto) 91H, Lymphocytes (%) (Auto) 6L, Monocytes (%) (Auto) 4, Eosinophils (%) (Auto) 0, Basophils (%) (Auto) 0, Neutrophils # (Auto) 12.0H, Lymphocytes # (Auto) 0.8L, Monocytes # (Auto) 0.5, Eosinophils # (Auto) 0.0, Basophils # (Auto) 0.0, Sodium Level 141, Potassium Level 4.5, Chloride Level 108H, Carbon Dioxide Level 25, Anion Gap 8, Blood Urea Nitrogen 17, Creatinine 0.62, Estimat Glomerular Filtration Rate > 60, BUN/Creatinine Ratio 27, Glucose Level 111H, Calcium Level 9.1, Corrected Calcium 9.4, Total Bilirubin 0.1, Aspartate Amino Transf (AST/SGOT) 11, Alanine Aminotransferase (ALT/SGPT) 14, Alkaline Phosphatase 89, Total Protein 5.9L, Albumin 3.6 Microbiology 08/30/19 Blood Culture - Preliminary, Resulted No growth Home Meds Active Guaifenesin AC Cough Syrup (Guaifenesin/Codeine Phosphate) 473 Ml Liquid 240 Ml PO Q4H PRN Prednisone 10 Mg Tab.ds.pk 10 Mg PO DAILY Take 6 tabs(60mg)daily,decrease by 1 tab(10MG)daily. Cefdinir 300 Mg Capsule 300 Mg PO BID Tessalon Perles (Benzonatate) 100 Mg Capsule 100 Mg PO TID Reported Chantix (Varenicline Tartrate) 0.5 Mg Tablet 0.5 Mg PO DAILY Montelukast Sodium 10 Mg Tablet 10 Mg PO DAILY Tylenol Extra Strength (Acetaminophen) 500 Mg Tablet 500-1,000 Mg PO Q4H PRN Levothyroxine Sodium 175 Mcg Tablet 175 Mcg PO DAILY LAST FILLED 06-20-2019 #30 Trelegy Ellipta 100-62.5-25 (Fluticasone/Umeclidin/Vilanter) 1 Each Blst.w.dev 1 Puff INH DAILY Ventolin Hfa (Albuterol Sulfate) 18 Gm Hfa.aer.ad 2 Puff INH Q4H PRN Assessment/Pt Instructions [facility] 1 week Discharge Planning: <30 minutes discharge planning Discharge Physical Examination Vital Signs Vital Signs Date Time Temp Pulse Resp B/P (MAP) Pulse Ox O2 Delivery O2 Flow Rate FiO2 09/02/19 10:17 97 Nasal Cannula 1.00 09/02/19 08:00 36.8 99 20 136/78 (97) General Appearance: No Apparent Distress, WD/WN Respiratory: No Accessory Muscle Use, No Respiratory Distress, Rales, Wheezing Cardiovascular: Regular Rate, Rhythm Neurologic/Psychiatric: Alert, Oriented x3, No Motor/Sensory Deficits, Normal Mood/Affect Allergies: Coded Allergies: oxycodone HCl (Verified Adverse Reaction, Severe, BLACK OUT, 01/15/19) morphine (Verified Adverse Reaction, Intermediate, Blackout, 01/15/19) Discharge Summary Date of Admission Aug 30, 2019 at 13:50 Date of Discharge Discharge Date: Sep 02, 2019 Admission Diagnosis Assessment: Respiratory insufficiency declined intubation and biPAP AECOPD Bronchitis acute bacterial type Smoker Meth user Cough Plan: Antitussives Home meds IV steroids O2 Nebs Discharge Diagnosis Assessment: Respiratory insufficiency declined intubation and biPAP now much improved AECOPD on IV steroids Bronchitis acute bacterial type on abx empiric Smoker Meth user Cough Plan: Antitussives Home meds IV steroids O2 Nebs DC tomorrow (1) Respiratory distress Status: Acute (2) COPD exacerbation Status: Acute (3) Smoker Status: Acute (4) Hypertension Status: Chronic Clinical Quality Measures DVT/VTE Risk/Contraindication: Risk Factor Score Per Nursin RFS Level Per Nursing on Admit: 4+=Very High JAGDEEP HAYNES DO Sep 02, 2019 11:20
--- NOTE | 2019-09-03 10:26 | Physician Query Clarification ---
PQ-Intro New Diagnosis Admission/Discharge Admission Date: Aug 30, 2019 at 13:50 Discharge Date: Sep 02, 2019 at 13:38 The medical record reflects the following clinical scenario: History/Risk Factors: Emphysema, acute respiratory distress Clinical Findings: PC02 58, P02 109, PH 7.28, R 24, accessory muscle use, wheezing Treatment: oxymask, nasal cannula (pt refuses intubation/bipap), Albuterol, IVP Solu- medrol, IV Ceftriaxone Question: What condition best reflects the above clinical scenario? Please document a response in the Progress Noter or Discharge Summary. 1. acute respiratory failure 2. acute respiratory distress 3. Other, with explanation of the clinical findings. 4. Clinically undetermined, no explanation for the clinical findings. PHYSICIAN RESPONSE What condition reflects above: 2 Please remember a lack of response to the above will prompt a phone page by CDI/Coding staff. In responding to this query, please exercise your independent professional judgment. The purpose of this communication is to more accurately reflect the complexity of your patients condition. The fact that a question is asked does not imply that any particular answer is desired or expected. Thank you for your timely response to this clarification. Requestors name: Nicki THIS PHYSICIAN QUERY FORM IS A PERMANENT PART OF THE MEDICAL RECORD NICKI QUIÑONES Sep 03, 2019 10:26 JAGDEEP HAYNES DO Sep 03, 2019 12:03
== END 2019-09-02 13:38 | disposition home or self-care (01) | DRG 191 ==
LOC: EDUNIT# 13:08 → ER 13:10 → 4TH 13:50
PROVIDERS: ADMIT Family Medicine; ATTEND Family Medicine
DX: J43.9 Emphysema, unspecified (principal); J20.9 Acute bronchitis, unspecified; R06.03 Acute respiratory distress; C85.90 Non-Hodgkin lymphoma, unspecified, unspecified site; F17.210 Nicotine dependence, cigarettes, uncomplicated; I10 Essential (primary) hypertension; E78.00 Pure hypercholesterolemia, unspecified; Z66 Do not resuscitate; K21.9 Gastro-esophageal reflux disease without esophagitis; M19.91 Primary osteoarthritis, unspecified site; E03.9 Hypothyroidism, unspecified; M54.9 Dorsalgia, unspecified; F41.9 Anxiety disorder, unspecified; I73.9 Peripheral vascular disease, unspecified; Z99.81 Dependence on supplemental oxygen; Z85.3 Personal history of malignant neoplasm of breast; Z92.21 Personal history of antineoplastic chemotherapy; Z92.3 Personal history of irradiation; Z56.0 Unemployment, unspecified
CPT/HCPCS: 36415; 71045; 80053; 82805; 83605; 83880; 84145; 85007; 85025; 85027; 86141; 87040; 94640; 94760

== ENCOUNTER 2019-10-28 05:56 | Emergency (ER) | payer MEDICARE ==
[~2019-10-28] VITALS: Ht 162 cm; Wt 65.9 kg
[~2019-10-28 05:56] MED LIST changes: +GUAI473L29 PO; -PROM118S4 PO; +PROM118S5 PO; -RT-ALBUTEROL/IPRATROPIUM 3 ML (DUONEB) VIAL ONE
[2019-10-28] MEDS ORDERED: RT-ALBUTEROL SULF 2.5 MG/3 ML PRE-MIX VIAL ONE (06:09)
[2019-10-28] MEDS ORDERED: RT-ALBUTEROL/IPRATROPIUM 3 ML (DUONEB) VIAL ONE (06:09)
[2019-10-28] MEDS ORDERED: NS IV 500 ML 500 ML IV ONE (06:12)
[2019-10-28] MEDS ORDERED: methylPREDNISolone 125 MG (Solu-MEDROL) VIAL IV STA (06:12)
[2019-10-28] MEDS ORDERED: RT-ALBUTEROL SULF 2.5 MG/3 ML PRE-MIX VIAL INH STA (06:12)
[2019-10-28] MEDS ORDERED: RT-ALBUTEROL/IPRATROPIUM 3 ML (DUONEB) VIAL INH ONE (06:15)
[2019-10-28 06:16] LABS: ABG BASE EXCESS 3.7 MMOL/L (-2.5-2.5); ABG OXYGEN SATURATION 90 % (94-100); ABG PCO2 50 MMHG (35-45); ABG PH 7.38 (7.37-7.43); ABG PO2 58 MMHG (79-93); ABG TCO2 30.4 MMOL/L (21.0-31.0)
[2019-10-28 06:18] LABS: ALLENS TEST YES-POS; INSPIRED O2 3L; PATIENT TEMP 35.9; VENTILATOR NO
[2019-10-28 06:21] LABS: BASOPHILS % (AUTO) 0 % (0-10); EOSINOPHILS # (AUTO) 0.9 10^3/uL (0.0-0.3); EOSINOPHILS % (AUTO) 11 % (0-10); HEMATOCRIT 49 % (35-52); LYMPHOCYTES # (AUTO) 2.2 X 10^3 (1.0-4.0); LYMPHOCYTES % (AUTO) 24 % (12-44); MEAN CORPUSCULAR HEMOGLOBIN 26 PG (25-34); MEAN CORPUSCULAR HGB CONC 31 G/DL (32-36); MEAN CORPUSCULAR VOLUME 85 FL (80-99); MEAN PLATELET VOLUME 10.4 FL (7.4-10.4); MONOCYTES # (AUTO) 0.6 X 10^3 (0.0-1.0); MONOCYTES % (AUTO) 7 % (0-12); NEUTROPHILS # (AUTO) 5.2 X 10^3 (1.8-7.8); NEUTROPHILS % (AUTO) 58 % (42-75); PLATELET COUNT 288 10^3/uL (130-400); RED CELL DISTRIBUTION WIDTH 14.5 % (10.0-14.5)
[2019-10-28 06:42] LABS: ALANINE AMINOTRANSFERASE 13 U/L (0-55); ALBUMIN 4.5 GM/DL (3.2-4.5); ALKALINE PHOSPHATASE 118 U/L (40-136); BILIRUBIN,TOTAL 0.2 MG/DL (0.1-1.0); BUN/CREATININE RATIO 18; CALCIUM 10.3 MG/DL (8.5-10.1); CARBON DIOXIDE 25 MMOL/L (21-32); CHLORIDE 104 MMOL/L (98-107); CREATININE SERUM 0.74 MG/DL (0.60-1.30); GFR ESTIMATED > 60; GLUCOSE 113 MG/DL (70-105); POTASSIUM 4.5 MMOL/L (3.6-5.0); SODIUM 144 MMOL/L (135-145); TOTAL PROTEIN 7.8 GM/DL (6.4-8.2)
--- NOTE | 2019-10-28 06:50 | ED Respiratory ---
General Chief Complaint: Respiratory Problems Stated Complaint: SOB Nursing Triage Note: Pt to RM 8 via WC with c/o SOB x 3 days. PT has Hx of COPD. Pt denies any chest pain but c/o chest tightness. Pt is afebrile on arrival, denies any fever/chills. Pt reports taking breathing Tx q 4 hrs. Source: patient Exam Limitations: no limitations History of Present Illness Date Seen by Provider: Oct 28, 2019 Time Seen by Provider: 06:00 Initial Comments Patient presents to ER by private conveyance from home with chief complaint of 3 days progressively worsening COPD exacerbation with shortness of breath, tripoding pursed lip breathing. She has been using her breathing treatment every 4 hours. She says she's not left her living room in the past month. She does to rely on oxygen 2 L by nasal cannula throughout the day. She sees Dr. Samson and Lalit Nelson for primary care. She has not been on steroids recently. She denies any fevers, chills, sick contacts. Echocardiogram 2008 demonstrating mild left ventricular hypertrophy and mild hypokinesis of the apex of the left ventricle and overall ejection fraction 50%. Allergies and Home Medications Allergies Coded Allergies: oxycodone HCl (Verified Adverse Reaction, Severe, BLACK OUT, 01/15/19) morphine (Verified Adverse Reaction, Intermediate, Blackout, 01/15/19) Home Medications Acetaminophen 500 Mg Tablet, 500-1,000 MG PO Q4H PRN for PAIN-MILD, (Reported) Albuterol Sulfate 18 Gm Hfa.aer.ad, 2 PUFF INH Q4H PRN for SHORTNESS OF BREATH, (Reported) Benzonatate 100 Mg Capsule, 100 MG PO TID Prescribed by: JAGDEEP HAYNES on 09/02/19 1119 Cefdinir 300 Mg Capsule, 300 MG PO BID Prescribed by: JAGDEEP HAYNES on 09/02/19 1119 Fluticasone/Umeclidin/Vilanter 1 Each Blst.w.dev, 1 PUFF INH DAILY, (Reported) Guaifenesin/Codeine Phosphate 473 Ml Liquid, 240 ML PO Q4H PRN for COUGH Prescribed by: JAGDEEP HAYNES on 09/02/19 1120 Levothyroxine Sodium 175 Mcg Tablet, 175 MCG PO DAILY, (Reported) LAST FILLED 06-20-2019 #30 Montelukast Sodium 10 Mg Tablet, 10 MG PO DAILY, (Reported) Prednisone 10 Mg Tab.ds.pk, 10 MG PO DAILY Take 6 tabs(60mg)daily,decrease by 1 tab(10MG)daily. Prescribed by: JAGDEEP HAYNES on 09/02/19 1119 Varenicline Tartrate 0.5 Mg Tablet, 0.5 MG PO DAILY, (Reported) Patient Home Medication List Home Medication List Reviewed: Yes Review of Systems Review of Systems Constitutional: No chills, No diaphoresis EENTM: No ear discharge, No ear pain Respiratory: No cough, No hemoptysis, No phlegm; short of breath, wheezing Cardiovascular: No chest pain, No edema, No Hx of Intervention Gastrointestinal: No abdominal pain, No constipation, No diarrhea, No nausea Genitourinary: No discharge, No dysuria Musculoskeletal: No back pain, No joint pain Skin: No dryness, No pruritus, No rash Psychiatric/Neurological: Denies Headache, Denies Numbness All Other Systems Reviewed Negative Unless Noted: Yes Past Uegulzn-Oyqdgu-Hcphpw Hx Patient Social History Alcohol Use: Rarely Uses Recreational Drug Use: No Drug of Choice: METH USE--DENIES IV USE--SMOKES IT Smoking Status: Current Everyday Smoker Type Used: Cigarettes Former Smoker, Quit: Jul 17, 2018 2nd Hand Smoke Exposure: Yes Recent Foreign Travel: No Contact w/Someone Who Travel: No Recent Infectious Disease Expo: No Recent Hopitalizations: No Immunizations Up To Date Tetanus Booster (TDap): Less than 5yrs Date of Pneumonia Vaccine: May 17, 2019 Date of Influenza Vaccine: Feb 12, 2019 Seasonal Allergies Seasonal Allergies: No Past Medical History Surgeries: Yes (BILAT CARPAL TUNNEL;L BREAST LUMPECTOMY; HIATAL HERNIA REPAIR; HAND SURGERY) Abdominal, Appendectomy, Breast, Orthopedic, Tubal Ligation Respiratory: Yes (O2 DEPENDENT AT 2L/NC) Pneumonia, Chronic Bronchitis, COPD Cardiac: Yes (CAROTID ARTERY DISEASE) High Cholesterol, Hypertension, Peripheral Vascular Neurological: No 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: No 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 NON-H LYMPH) Breast, Lymphoma Did You Recieve Any Treatments: Yes What Type of Treatment Did You: Chemotherapy, Radiation, Surgical Intervention Psychosocial: Yes (POLYSUBSTANCE ABUSE) Anxiety Integumentary: No Blood Disorders: No Family Medical History Neoplasm 19 FATHER (LUNG) 19 MOTHER G8 SISTER (OVARIAN) PMH: -LEFT BREAST CANCER 2003--S/P LUMPECTOMY, CHEMO AND RADIATION; 4 MONTHS LATER, DEVELOPED NON-HODGKIN'S LYMPOMA--S/P CHEMOTHERAPY PSH: -BILATERAL CARPAL TUNNEL -HAND SURGERY -RIGHT SHOULDER SURGERY. -HIATAL HERNIA REPAIR -LEFT BREAST LUMPECTOMY -BTL -APPENDECTOMY Physical Exam Vital Signs - First Documented 10/28/19 06:01 Temp 35.9 Pulse 115 Resp 24 Pulse Ox 87 O2 Delivery Nasal Cannula O2 Flow Rate 2.00 Capillary Refill : Less Than 3 Seconds Height: 5'2.00" Weight: 117lbs. 0.0oz. 53.875373wa; 25.00 BMI Method:Stated General Appearance: WD/WN, moderate distress Eyes: Bilateral Eye Normal Inspection, Bilateral Eye PERRL, Bilateral Eye EOMI HEENT: PERRL/EOMI, normal ENT inspection, pharynx normal Neck: full range of motion, supple, normal inspection Respiratory: respiratory distress (pursed lip breathing, tripoding and increased work of breathing), decreased breath sounds, accessory muscle use (moderate), wheezing, expiration (prolonged) Cardiovascular: normal peripheral pulses, regular rate, rhythm, no edema Gastrointestinal: non tender, soft Extremities: normal inspection, no pedal edema, normal capillary refill Neurologic/Psychiatric: alert, normal mood/affect, oriented x 3 Skin: normal color, warm/dry Progress/Results/Core Measures Suspected Sepsis Recent Fever Within 48 Hours: No Infection Criteria Present: None New/Unexplained Altered Menta: No Sepsis Screen: No Definite Risk SIRS Temperature: Pulse: 115 Respiratory Rate: 24 Laboratory Tests 10/28/19 06:07: White Blood Count 9.0 Blood Pressure / Mean: Laboratory Tests 10/28/19 06:07: Creatinine 0.74, Platelet Count 288, Total Bilirubin 0.2 Results/Orders Lab Results Laboratory Tests Test 10/28/19 06:07 10/28/19 06:08 Range/Units White Blood Count 9.0 4.3-11.0 10^3/uL Red Blood Count 5.72 4.35-5.85 10^6/uL Hemoglobin 15.0 11.5-16.0 G/DL Hematocrit 49 35-52 % Mean Corpuscular Volume 85 80-99 FL Mean Corpuscular Hemoglobin 26 25-34 PG Mean Corpuscular Hemoglobin Concent 31 L 32-36 G/DL Red Cell Distribution Width 14.5 10.0-14.5 % Platelet Count 288 130-400 10^3/uL Mean Platelet Volume 10.4 7.4-10.4 FL Neutrophils (%) (Auto) 58 42-75 % Lymphocytes (%) (Auto) 24 12-44 % Monocytes (%) (Auto) 7 0-12 % Eosinophils (%) (Auto) 11 H 0-10 % Basophils (%) (Auto) 0 0-10 % Neutrophils # (Auto) 5.2 1.8-7.8 X 10^3 Lymphocytes # (Auto) 2.2 1.0-4.0 X 10^3 Monocytes # (Auto) 0.6 0.0-1.0 X 10^3 Eosinophils # (Auto) 0.9 H 0.0-0.3 10^3/uL Basophils # (Auto) 0.0 0.0-0.1 10^3/uL Sodium Level 144 135-145 MMOL/L Potassium Level 4.5 3.6-5.0 MMOL/L Chloride Level 104 98-107 MMOL/L Carbon Dioxide Level 25 21-32 MMOL/L Anion Gap 15 H 5-14 MMOL/L Blood Urea Nitrogen 13 7-18 MG/DL Creatinine 0.74 0.60-1.30 MG/DL Estimat Glomerular Filtration Rate > 60 BUN/Creatinine Ratio 18 Glucose Level 113 H 70-105 MG/DL Calcium Level 10.3 H 8.5-10.1 MG/DL Corrected Calcium 9.9 8.5-10.1 MG/DL Total Bilirubin 0.2 0.1-1.0 MG/DL Aspartate Amino Transf (AST/SGOT) 17 5-34 U/L Alanine Aminotransferase (ALT/SGPT) 13 0-55 U/L Alkaline Phosphatase 118 40-136 U/L Troponin I < 0.028 <0.028 NG/ML C-Reactive Protein High Sensitivity 0.21 0.00-0.50 MG/DL B-Type Natriuretic Peptide 19.8 <100.0 PG/ML Total Protein 7.8 6.4-8.2 GM/DL Albumin 4.5 3.2-4.5 GM/DL Blood Gas Puncture Site LEFT RADIAL Blood Gas Patient Temperature 35.9 Arterial Blood pH 7.38 7.37-7.43 Arterial Blood Partial Pressure CO2 50 H 35-45 MMHG Arterial Blood Partial Pressure O2 58 L 79-93 MMHG Arterial Blood HCO3 29 H 23-27 MMOL/L Arterial Blood Total CO2 30.4 21.0-31.0 MMOL/L Arterial Blood Oxygen Saturation 90 L 94-100 % Arterial Blood Base Excess 3.7 H -2.5-2.5 MMOL/L Robby Test YES-POS Blood Gas Ventilator Setting NO Blood Gas Inspired Oxygen 3L My Orders Orders - DARRIN FLOREZ Arterial Blood Gas (10/28/19 06:10) Albuterol Pre-Mix Nebs (Rt) (Proventil (10/28/19 06:12) Albuterol/Ipra Inhalation Soln (Duoneb I (10/28/19 06:15) Methylprednisolone Sod Succ (Solu-Medrol (10/28/19 06:12) Chest 1 View, Ap/Pa Only (10/28/19 06:12) Ed Iv/Invasive Line Start (10/28/19 06:12) Ns Iv 500 Ml (Sodium Chloride 0.9%) (10/28/19 06:12) Svn Small Volume Nebulizer (10/28/19 06:12) Cbc With Automated Diff (10/28/19 06:12) Hs C Reactive Protein (10/28/19 06:12) Comprehensive Metabolic Panel (10/28/19 06:12) BNP (10/28/19 06:12) Continuous Ekg Monitoring (10/28/19 06:12) Ekg Tracing (10/28/19 06:12) Troponin I (10/28/19 06:12) Medications Given in ED Current Medications Medications Dose Ordered Sig/Phani Route Start Time Stop Time Status Last Admin Dose Admin Albuterol Sulfate 2.5 mg STK-MED ONCE .ROUTE 10/28/19 06:09 10/28/19 06:11 DC 6/15/20 06:12 12.5 MG Albuterol/ Ipratropium 3 ml STK-MED ONCE .ROUTE 10/28/19 06:09 10/28/19 06:11 DC 10/28/19 06:12 3 ML Sodium Chloride 500 ml @ 0 mls/hr Q0M ONCE IV 10/28/19 06:12 10/28/19 06:15 DC 10/28/19 06:56 0 MLS/HR Vital Signs/I&O 10/28/19 10/28/19 06:01 06:12 Temp 35.9 Pulse 115 Resp 24 B/P (MAP) Pulse Ox 87 90 O2 Delivery Nasal Cannula Nasal Cannula O2 Flow Rate 2.00 2.00 Capillary Refill : Less Than 3 Seconds Progress Note #1: Time: 06:42 Progress Note 125 mg Solu-Medrol and hour-long breathing treatment. Does not appear to be any infectious component per labs. She does have some hypoxia with 87% presentation on 2 L. 3 L was keeping her in the mid 90s. We'll reexamine after her hour-long. Her wheezing is gone and she wants to go home we would support that if she can tolerate her baseline oxygen use. Progress Note #2: Time: 08:52 Progress Note After an hour-long breathing treatment the patient has improved about 90%. She's no longer tripoding has no acute respirator distress. She's back on her baseline of 2 L per nasal cannula without any significant external signs of respiratory distress. Her oxygen sats are around 93-94% which is probably where she lives. She has no personal breathing. No cyanosis. No signs of respiratory distress. We have offered observation stay versus going home on steroids and given the risk of rocky a nosocomial infection she has wisely chosen to go home and attempt outpatient therapy. We'll put her on a prolonged course of prednisone. She's been instructed to follow-up with her primary care doctor later this week. ECG Initial ECG Impression Date: Oct 28, 2019 Initial ECG Impression Time: 06:28 Initial ECG Rate: 108 Initial ECG Rhythm: Normal Sinus Initial ECG Intervals: Normal Initial ECG Impression: Normal Initial ECG Comparisson: Unchanged Comment Sinus tachycardia without likely relevant ST T-wave elevation or depression. Diagnostic Imaging Diagonstic Imaging: Xray Plain Films/CT/US/NM/MRI: chest Comments COPD. No acute cardiopulmonary changes. NAME: [facility] REC#: [id number] PT STATUS: REG ER : [id number] PHYSICIAN: DARRIN FLOREZ MD ADMIT DATE: 10/28/19/ER Draft Date of Exam:10/28/19 CHEST 1 VIEW, AP/PA ONLY INDICATION: Difficulty breathing, shortness of air. TECHNIQUE: Single view chest 6:30 AM. CORRELATION STUDY: 08/30/2019 FINDINGS: The heart size, mediastinal configuration and pulmonary vascularity are within normal limits. Lung vann are hyperinflated. Prominent interstitial markings particularly at the lung bases. Asymmetric bullous changes of the lung apices. More focal fibrosis at the right lung apex with slight parenchymal distortion. Density over the left lung apex may be largely attributed to overlying tubing and apparatus. Focal infiltrate considered less likely but not excluded. Rightward curvature thoracic spine. IMPRESSION: 1. Severe fibroemphysematous changes about the lung parenchyma. Density left lung apex likely largely attributed to overlying tubing apparatus. Infiltrates considered less likely but not excluded. Dictated on workstation # [id number] Dict: 10/28/19 0633 Trans: 10/28/19 0656 [facility] [id number] Interpreted by: ARGENIS REYES DO Electronically signed by: Reviewed: Reviewed by Me Departure Impression Primary Impression: COPD exacerbation Disposition: 01 HOME, SELF-CARE Condition: Stable Departure-Patient Inst. Decision time for Depature: 08:53 Referrals: [facility] (PCP) Primary Care Physician OUMOU NELSON (Family) Primary Care Physician Patient Instructions: Exacerbation of COPD, Chronic Obstructive Pulmonary Disease (COPD) (DC) Add. Discharge Instructions: Continue using her nebulizer every 6 hours on a schedule at home. Every 2 hours as necessary for wheezing breakthrough. 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 Follow-up later this week with Lalit Nelson or one of his partners at [facility] by calling for an appointment. Return to the ER if you're shortness of breath worsens or you experience chest pain or other worrisome symptoms. All discharge instructions reviewed with patient and/or family. Voiced understanding. Scripts Prednisone (Prednisone) 20 Mg Tab 80 MG PO DAILY for 9 Days, #27 TAB 0 Refills 4 tabs x 3 days 3 tabs x 3 days 2 tabs x 3 days Prov: DARRIN FLOREZ 10/28/19 DARRIN FLOREZ Oct 28, 2019 06:49
--- NOTE | 2019-10-28 06:57 | Diagnostic Imaging Report ---
INDICATION: Difficulty breathing, shortness of air. TECHNIQUE: Single view chest 6:30 AM. CORRELATION STUDY: 08/30/2019 FINDINGS: The heart size, mediastinal configuration and pulmonary vascularity are within normal limits. Lung vann are hyperinflated. Prominent interstitial markings particularly at the lung bases. Asymmetric bullous changes of the lung apices. More focal fibrosis at the right lung apex with slight parenchymal distortion. Density over the left lung apex may be largely attributed to overlying tubing and apparatus. Focal infiltrate considered less likely but not excluded. Rightward curvature thoracic spine. IMPRESSION: 1. Severe fibroemphysematous changes about the lung parenchyma. Density left lung apex likely largely attributed to overlying tubing apparatus. Infiltrates considered less likely but not excluded. Dictated by: Dictated on workstation # [id number]
[2019-10-28] MEDS ORDERED: PRD20T PO (08:59)
[2019-10-28 09:09] VITALS: BP 116/66
== END 2019-10-28 09:09 | disposition home or self-care (01) ==
LOC: EDUNIT# 05:56 → ER 05:58
DX: J44.1 Chronic obstructive pulmonary disease with (acute) exacerbation (principal); I10 Essential (primary) hypertension; E03.9 Hypothyroidism, unspecified; F17.210 Nicotine dependence, cigarettes, uncomplicated; Z88.5 Allergy status to narcotic agent; Z79.51 Long term (current) use of inhaled steroids; Z79.52 Long term (current) use of systemic steroids; Z79.890 Hormone replacement therapy; Z85.3 Personal history of malignant neoplasm of breast; Z85.72 Personal history of non-Hodgkin lymphomas; Z80.41 Family history of malignant neoplasm of ovary; Z80.1 Family history of malignant neoplasm of trachea, bronchus and lung
CPT/HCPCS: 36415; 71045; 80053; 82805; 83880; 84484; 85025; 86141; 93005; 94640; 94644

== ENCOUNTER 2019-12-15 18:50 | Inpatient (IN) | payer MEDICARE ==
[2019-12-15] VITALS (7 sets, daily range): BP systolic 93–169; BP diastolic 59–120
[~2019-12-15] VITALS: Ht 158.5 cm; Wt 56.9 kg
[~2019-12-15 18:50] MED LIST changes: +AZIT250T12 PO
[2019-12-15] MEDS ORDERED: RT-ALBUTEROL/IPRATROPIUM 3 ML (DUONEB) VIAL ONE (19:08)
[2019-12-15] MEDS ORDERED: RT-ALBUTEROL/IPRATROPIUM 3 ML (DUONEB) VIAL INH ONE (19:15)
[2019-12-15] MEDS ORDERED: RT-ALBUTEROL SULF 2.5 MG/3 ML PRE-MIX VIAL INH ONE (19:15)
--- NOTE | 2019-12-15 19:22 | ED Cough/URI ---
General Chief Complaint: Respiratory Problems Stated Complaint: SOB Source: patient Exam Limitations: no limitations History of Present Illness Date Seen by Provider: Dec 15, 2019 Time Seen by Provider: 19:20 Initial Comments To ER with shortness of breath. She was just seen here 3 days ago for the same. Has COPD and is oxygen dependent at home. She continues to smoke.. She finished steroids and antibiotics. Today she feels worse. Oxygen is low 90% range on her baseline 2 L. No fevers. No exposure to ill contacts. Has not left her house other than to come to the emergency room for the past few months. Timing/Duration: constant Severity/Quality: productive cough Associated Symptoms: cough, shortness of breath, wheezing Allergies and Home Medications Allergies Coded Allergies: oxycodone HCl (Verified Adverse Reaction, Severe, BLACK OUT, 01/15/19) morphine (Verified Adverse Reaction, Intermediate, Blackout, 01/15/19) Home Medications Acetaminophen 500 Mg Tablet, 500-1,000 MG PO Q4H PRN for PAIN-MILD, (Reported) Albuterol Sulfate 18 Gm Hfa.aer.ad, 2 PUFF INH Q4H PRN for SHORTNESS OF BREATH, (Reported) Azithromycin 250 Mg Tablet, 250 MG PO UD TAKE 2 TABLETS ON DAY ONE THEN TAKE 1 TABLET DAILY FOR FOUR MORE DAYS Prescribed by: REYES GEORGE on 12/11/19 1352 Benzonatate 100 Mg Capsule, 100 MG PO TID Prescribed by: JAGDEEP HAYNES on 09/02/19 1119 Cefdinir 300 Mg Capsule, 300 MG PO BID Prescribed by: JAGDEEP HAYNES on 09/02/19 1119 Fluticasone/Umeclidin/Vilanter 1 Each Blst.w.dev, 1 PUFF INH DAILY, (Reported) Guaifenesin/Codeine Phosphate 473 Ml Liquid, 240 ML PO Q4H PRN for COUGH Prescribed by: JAGDEEP HAYNES on 09/02/19 1120 Levothyroxine Sodium 175 Mcg Tablet, 175 MCG PO DAILY, (Reported) LAST FILLED 06-20-2019 #30 Montelukast Sodium 10 Mg Tablet, 10 MG PO DAILY, (Reported) Prednisone 10 Mg Tab.ds.pk, 10 MG PO DAILY Take 6 tabs(60mg)daily,decrease by 1 tab(10MG)daily. Prescribed by: JAGDEEP HAYNES on 09/02/19 1119 Prednisone 20 Mg Tab, 80 MG PO DAILY 4 tabs x 3 days 3 tabs x 3 days 2 tabs x 3 days Prescribed by: DARRIN FLOREZ on 10/28/19 0859 Prednisone 20 Mg Tab, 40 MG PO DAILY Prescribed by: REYES GEORGE on 12/11/19 1352 Varenicline Tartrate 0.5 Mg Tablet, 0.5 MG PO DAILY, (Reported) Patient Home Medication List Home Medication List Reviewed: Yes Review of Systems Review of Systems Constitutional: see HPI EENTM: see HPI Respiratory: no symptoms reported Cardiovascular: no symptoms reported Genitourinary: no symptoms reported Musculoskeletal: no symptoms reported Skin: no symptoms reported Psychiatric/Neurological: No Symptoms Reported Hematologic/Lymphatic: No Symptoms Reported Past Yinwlzn-Anizll-Choixc Hx Patient Social History Drug of Choice: METH USE--DENIES IV USE--SMOKES IT Type Used: Cigarettes Former Smoker, Quit: Jul 17, 2018 2nd Hand Smoke Exposure: Yes Recent Hopitalizations: No Immunizations Up To Date Tetanus Booster (TDap): Less than 5yrs Date of Pneumonia Vaccine: May 17, 2019 Date of Influenza Vaccine: Feb 12, 2019 Seasonal Allergies Seasonal Allergies: No Past Medical History Surgeries: Yes (BILAT CARPAL TUNNEL;L BREAST LUMPECTOMY; HIATAL HERNIA REPAIR; HAND SURGERY) Abdominal, Appendectomy, Breast, Orthopedic, Tubal Ligation Respiratory: Yes (O2 DEPENDENT AT 2L/NC) Pneumonia, Chronic Bronchitis, COPD Cardiac: Yes (CAROTID ARTERY DISEASE) High Cholesterol, Hypertension, Peripheral Vascular Neurological: No 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: No 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 NON-H LYMPH) Breast, Lymphoma Did You Recieve Any Treatments: Yes What Type of Treatment Did You: Chemotherapy, Radiation, Surgical Intervention Psychosocial: Yes (POLYSUBSTANCE ABUSE) Anxiety Integumentary: No Blood Disorders: No Family Medical History Neoplasm 19 FATHER (LUNG) 19 MOTHER G8 SISTER (OVARIAN) PMH: -LEFT BREAST CANCER 2003--S/P LUMPECTOMY, CHEMO AND RADIATION; 4 MONTHS LATER, DEVELOPED NON-HODGKIN'S LYMPOMA--S/P CHEMOTHERAPY PSH: -BILATERAL CARPAL TUNNEL -HAND SURGERY -RIGHT SHOULDER SURGERY. -HIATAL HERNIA REPAIR -LEFT BREAST LUMPECTOMY -BTL -APPENDECTOMY Physical Exam Vital Signs - First Documented 12/15/19 19:17 Temp 36.2 Pulse 116 Resp 23 B/P (MAP) 169/120 (136) Pulse Ox 93 O2 Delivery Nasal Cannula O2 Flow Rate 4.00 Capillary Refill : Height: 5'2.00" Weight: 117lbs. 0.0oz. 53.605402wh; 23.00 BMI Method:Stated General Appearance: WD/WN, mild distress, thin Eyes: Bilateral Eye Normal Inspection Respiratory: no respiratory distress, no accessory muscle use, decreased breath sounds, wheezing Cardiovascular: no murmur, tachycardia Gastrointestinal: normal bowel sounds, non tender, soft Neurologic/Psychiatric: alert, normal mood/affect, oriented x 3 Progress/Results/Core Measures Suspected Sepsis SIRS Temperature: Pulse: Respiratory Rate: Laboratory Tests 12/15/19 19:16: White Blood Count 9.9 Blood Pressure / Mean: Laboratory Tests 12/15/19 19:16: Creatinine 0.69, Platelet Count 350, Total Bilirubin 0.3 Results/Orders Lab Results Laboratory Tests Test 12/15/19 19:16 12/15/19 19:33 Range/Units White Blood Count 9.9 4.3-11.0 10^3/uL Red Blood Count 5.55 4.35-5.85 10^6/uL Hemoglobin 14.4 11.5-16.0 G/DL Hematocrit 46 35-52 % Mean Corpuscular Volume 84 80-99 FL Mean Corpuscular Hemoglobin 26 25-34 PG Mean Corpuscular Hemoglobin Concent 31 L 32-36 G/DL Red Cell Distribution Width 15.4 H 10.0-14.5 % Platelet Count 350 130-400 10^3/uL Mean Platelet Volume 10.6 H 7.4-10.4 FL Neutrophils (%) (Auto) 74 42-75 % Lymphocytes (%) (Auto) 15 12-44 % Monocytes (%) (Auto) 10 0-12 % Eosinophils (%) (Auto) 2 0-10 % Basophils (%) (Auto) 0 0-10 % Neutrophils # (Auto) 7.4 1.8-7.8 X 10^3 Lymphocytes # (Auto) 1.4 1.0-4.0 X 10^3 Monocytes # (Auto) 0.9 0.0-1.0 X 10^3 Eosinophils # (Auto) 0.2 0.0-0.3 10^3/uL Basophils # (Auto) 0.0 0.0-0.1 10^3/uL D-Dimer 0.39 0.00-0.49 UG/ML Sodium Level 140 135-145 MMOL/L Potassium Level 4.2 3.6-5.0 MMOL/L Chloride Level 102 98-107 MMOL/L Carbon Dioxide Level 27 21-32 MMOL/L Anion Gap 11 5-14 MMOL/L Blood Urea Nitrogen 16 7-18 MG/DL Creatinine 0.69 0.60-1.30 MG/DL Estimat Glomerular Filtration Rate > 60 BUN/Creatinine Ratio 23 Glucose Level 94 70-105 MG/DL Calcium Level 9.9 8.5-10.1 MG/DL Corrected Calcium 8.5-10.1 MG/DL Total Bilirubin 0.3 0.1-1.0 MG/DL Aspartate Amino Transf (AST/SGOT) 23 5-34 U/L Alanine Aminotransferase (ALT/SGPT) 20 0-55 U/L Alkaline Phosphatase 122 40-136 U/L C-Reactive Protein High Sensitivity 0.91 H 0.00-0.50 MG/DL Total Protein 7.8 6.4-8.2 GM/DL Albumin 4.6 H 3.2-4.5 GM/DL Procalcitonin 0.04 <0.10 NG/ML Blood Gas Puncture Site LEFT RADIAL Blood Gas Patient Temperature 36.4 Arterial Blood pH 7.25 *L 7.37-7.43 Arterial Blood Partial Pressure CO2 69 H 35-45 MMHG Arterial Blood Partial Pressure O2 57 L 79-93 MMHG Arterial Blood HCO3 30 H 23-27 MMOL/L Arterial Blood Total CO2 31.9 H 21.0-31.0 MMOL/L Arterial Blood Oxygen Saturation 79 L 94-100 % Arterial Blood Base Excess 2.9 H -2.5-2.5 MMOL/L Robby Test POSITIVE Blood Gas Ventilator Setting NO Blood Gas Inspired Oxygen UNK My Orders Orders - GEORGE,PETER J [employer] Cbc With Automated Diff (12/15/19 18:59) Comprehensive Metabolic Panel (12/15/19 18:59) Chest 1 View, Ap/Pa Only (12/15/19 18:59) Arterial Blood Gas (12/15/19 19:04) Ua Culture If Indicated (12/15/19 19:04) Drug Screen Stat (Urine) (12/15/19 19:04) Albuterol/Ipra Inhalation Soln (Duoneb I (12/15/19 19:15) Svn Small Volume Nebulizer (12/15/19 19:08) Albuterol Pre-Mix Nebs (Rt) (Proventil (12/15/19 19:15) Svn Small Volume Nebulizer (12/15/19 19:08) Albuterol/Ipra Inhalation Soln (Duoneb I (12/15/19 19:08) Metoprolol Tartrate Injection (Lopressor (12/15/19 19:30) Lorazepam Injection (Ativan Injection) (12/15/19 19:30) Procalcitonin (Pct) (12/15/19 19:28) Hs C Reactive Protein (12/15/19 19:28) Fibrin Degradation Products (12/15/19 19:28) Medications Given in ED Current Medications Medications Dose Ordered Sig/Phani Route Start Time Stop Time Status Last Admin Dose Admin Albuterol Sulfate 10 mg ONCE ONCE INH 12/15/19 19:15 12/15/19 19:16 DC 12/15/19 19:25 10 MG Albuterol/ Ipratropium 3 ml ONCE ONCE INH 12/15/19 19:15 12/15/19 19:16 DC 12/15/19 19:25 3 ML Lorazepam 0.5 mg ONCE PRN IVP 12/15/19 19:30 12/15/19 19:26 0.5 MG Metoprolol Tartrate 5 mg ONCE ONCE IV 12/15/19 19:30 12/15/19 19:31 DC 12/15/19 19:26 5 MG Vital Signs/I&O 12/15/19 12/15/19 19:17 20:19 Temp 36.2 Pulse 116 89 Resp 23 31 B/P (MAP) 169/120 (136) Pulse Ox 93 99 O2 Delivery Nasal Cannula O2 Flow Rate 4.00 50.00 Capillary Refill : Diagnostic Imaging Diagonstic Imaging: Xray Plain Films/CT/US/NM/MRI: chest Comments NAME: MICHAEL MARK [facility] REC#: [id number] PT STATUS: REG ER : 1955 PHYSICIAN: REYES GEORGE APRN ADMIT DATE: 12/15/19/ER Draft Date of Exam:12/15/19 CHEST 1 VIEW, AP/PA ONLY INDICATION: Shortness of breath and COPD. EXAMINATION: Frontal chest was obtained at 7:20 p.m. COMPARISON: 12/11/2019. FINDINGS: Heart is normal in size. There is marked COPD change of biapical bullous disease. There is mild central vascular congestion. There is no consolidation or pleural fluid. IMPRESSION: COPD changes with prominent biapical bullous disease. Mild central vascular congestion. No new consolidation or pleural fluid. Dictated on workstation # [id number] Dict: 12/15/191932 Trans: 12/15/191937 PJE [id number] Interpreted by: SAQIB IDAZ MD Electronically signed by: Departure Communication (Admissions) Time/Spoke to Admitting Phy: 20:[address] Haynes, will admit to ICU continued on BiPAP which she is tolerating very well. Her risk is low but of course we're obligated to swab her for coronavirus. 2007-After reviewing ABG, given bipap at 10/5 50% with inline treatment. 2037-Still toleratibg bipap well,. RR 22, 10/5. FiO2 reduced to 30% as SpO2 on bedside monitor is 100%. Sleeping at this time after 0.5mg lorazepam IV. Impression Primary Impression: Acute on chronic respiratory failure Qualified Codes: J96.21 - Acute and chronic respiratory failure with hypoxia; J96.22 - Acute and chronic respiratory failure with hypercapnia Disposition: ADMITTED INPATIENT Condition: Stable Admissions Decision to Admit Reason: Admit from ER (General) Decision to Admit/Date: Dec 15, 2019 Time/Decision to Admit Time: 20:39 Departure-Patient Inst. Referrals: [facility] [place]) Primary Care Physician OUMOU DELGADO (Family) Primary Care Physician REYES GEORGE APRN Dec 15, 2019 19:22
[2019-12-15] MEDS: LORazepam INJ 2 MG/ML (ATIVAN) VIAL IVP PRN (19:26)
[2019-12-15] MEDS ORDERED: meTOprolol 5 MG/5 ML (LOPRESSOR) VIAL IV ONE (19:30)
--- NOTE | 2019-12-15 19:38 | Diagnostic Imaging Report ---
INDICATION: Shortness of breath and COPD. EXAMINATION: Frontal chest was obtained at 7:20 p.m. COMPARISON: 12/11/2019. FINDINGS: Heart is normal in size. There is marked COPD change of biapical bullous disease. There is mild central vascular congestion. There is no consolidation or pleural fluid. IMPRESSION: COPD changes with prominent biapical bullous disease. Mild central vascular congestion. No new consolidation or pleural fluid. Dictated by: Dictated on workstation # [id number]
[2019-12-15 19:40] LABS: BASOPHILS % (AUTO) 0 % (0-10); EOSINOPHILS # (AUTO) 0.2 10^3/uL (0.0-0.3); EOSINOPHILS % (AUTO) 2 % (0-10); HEMATOCRIT 46 % (35-52); HEMOGLOBIN 14.4 G/DL (11.5-16.0); LYMPHOCYTES # (AUTO) 1.4 X 10^3 (1.0-4.0); LYMPHOCYTES % (AUTO) 15 % (12-44); MEAN CORPUSCULAR HEMOGLOBIN 26 PG (25-34); MEAN CORPUSCULAR HGB CONC 31 G/DL (32-36); MEAN CORPUSCULAR VOLUME 84 FL (80-99); MEAN PLATELET VOLUME 10.6 FL (7.4-10.4); MONOCYTES # (AUTO) 0.9 X 10^3 (0.0-1.0); MONOCYTES % (AUTO) 10 % (0-12); NEUTROPHILS # (AUTO) 7.4 X 10^3 (1.8-7.8); NEUTROPHILS % (AUTO) 74 % (42-75); PLATELET COUNT 350 10^3/uL (130-400); RED CELL DISTRIBUTION WIDTH 15.4 % (10.0-14.5); WHITE BLOOD COUNT 9.9 10^3/uL (4.3-11.0)
[2019-12-15 19:40] LABS: ABG BASE EXCESS 2.9 MMOL/L (-2.5-2.5); ABG OXYGEN SATURATION 79 % (94-100); ABG PCO2 69 MMHG (35-45); ABG PO2 57 MMHG (79-93); ABG TCO2 31.9 MMOL/L (21.0-31.0)
[2019-12-15 19:52] LABS: ABG PH 7.25 (7.37-7.43); ALLENS TEST POSITIVE; PATIENT TEMP 36.4; VENTILATOR NO
[2019-12-15 20:01] LABS: ALANINE AMINOTRANSFERASE 20 U/L (0-55); ALBUMIN 4.6 GM/DL (3.2-4.5); ALKALINE PHOSPHATASE 122 U/L (40-136); BILIRUBIN,TOTAL 0.3 MG/DL (0.1-1.0); BUN/CREATININE RATIO 23; CALCIUM 9.9 MG/DL (8.5-10.1); CARBON DIOXIDE 27 MMOL/L (21-32); CHLORIDE 102 MMOL/L (98-107); CREATININE SERUM 0.69 MG/DL (0.60-1.30); GFR ESTIMATED > 60; GLUCOSE 94 MG/DL (70-105); POTASSIUM 4.2 MMOL/L (3.6-5.0); SODIUM 140 MMOL/L (135-145); TOTAL PROTEIN 7.8 GM/DL (6.4-8.2)
[2019-12-15] MEDS ORDERED: LACTATED RINGERS 1,000 ML IV ONE (21:10)
[2019-12-15 21:59] LABS: CLARITY,URINE CLEAR; COLOR,URINE YELLOW; GLUCOSE, URINE (UA) NEGATIVE (NEGATIVE); KETONES,URINE NEGATIVE (NEGATIVE); LEUKOCYTE ESTERASE ,URINE NEGATIVE (NEGATIVE); NITRITE,URINE NEGATIVE (NEGATIVE); PH,URINE 5.5 (5-9); PROTEIN,URINE 1+ (NEGATIVE)
[2019-12-15 22:06] LABS: BILIRUBIN,URINE 1+ (NEGATIVE)
[2019-12-15 22:08] LABS: AMORPHOUS SEDIMENT,UR FEW AMOR URATES /LPF; BACTERIA,URINE TRACE /HPF
--- NOTE | 2019-12-15 22:13 | NUR ---
ALBUTEROL INHALER 4PUFF ATROVENT INHATER 4P RT TO REASSESS IN 72 HOURS OR NEEDED Addendum: 12/15/19 at 2213 by REHAN ELIZABETH RT Amended: Links added.
[2019-12-15] MEDS ORDERED: RT-ALBUTEROL INHALER HFA (VENTOLIN HFA) 18 GM IH PRN (22:15)
[2019-12-15] MEDS ORDERED: IPRATROPIUM INHALER (ATROVENT) 12.9 GM INH PRN (22:15)
[2019-12-15] MEDS ORDERED: ONDANSETRON 4 MG/2 ML (SDV) Z0FRAN IVP PRN (22:15)
[2019-12-15 22:20] LABS: AMPHETAMINE SCREEN, URINE POSITIVE (NEGATIVE); BARBITURATE SCREEN URINE NEGATIVE (NEGATIVE); BENZODIAZEPINES SCREEN URINE POSITIVE (NEGATIVE); CANNABINOID SCREEN, URINE NEGATIVE (NEGATIVE); COCAINE SCREEN URINE NEGATIVE (NEGATIVE); METHADONE STAT NEGATIVE (NEGATIVE); METHAMPHETAMINE SCREEN URINE S POSITIVE (NEGATIVE); OPIATE SCREEN URINE NEGATIVE (NEGATIVE); OXYCODONE STAT NEGATIVE (NEGATIVE); PROPOXYPHENE STAT NEGATIVE (NEGATIVE); TRICYCLIC ANTIDEPRESSANTS SCRE NEGATIVE (NEGATIVE)
[2019-12-15] MEDS: LACTATED RINGERS 1,000 ML IV SCH (22:20)
[2019-12-15] MEDS: ENOXAPARIN 40 MG/0.4 ML (LOVENOX) SYR SC SCH (22:23)
[2019-12-16] VITALS (24 sets, daily range): BP systolic 95–140; BP diastolic 58–96
[2019-12-16] MEDS ORDERED: RT-ALBUTEROL/IPRATROPIUM 3 ML (DUONEB) VIAL INH SCH
[2019-12-16] MEDS ORDERED: RT-ALBUTEROL INHALER HFA (VENTOLIN HFA) 18 GM IH SCH (02:00)
[2019-12-16 03:35] LABS: ABG BASE EXCESS 3.3 MMOL/L (-2.5-2.5); ABG OXYGEN SATURATION 93 % (94-100); ABG PCO2 59 MMHG (35-45); ABG PO2 69 MMHG (79-93); ABG TCO2 30.9 MMOL/L (21.0-31.0)
[2019-12-16 03:38] LABS: ABG PH 7.31 (7.37-7.43); ALLENS TEST POSITIVE; INSPIRED O2 30 BIPAP; PATIENT TEMP 36.6; VENTILATOR NO
[2019-12-16 03:41] LABS: BASOPHILS % (AUTO) 0 % (0-10); EOSINOPHILS # (AUTO) 0.3 10^3/uL (0.0-0.3); EOSINOPHILS % (AUTO) 4 % (0-10); HEMATOCRIT 41 % (35-52); HEMOGLOBIN 12.4 G/DL (11.5-16.0); LYMPHOCYTES # (AUTO) 1.4 X 10^3 (1.0-4.0); LYMPHOCYTES % (AUTO) 17 % (12-44); MEAN CORPUSCULAR HEMOGLOBIN 26 PG (25-34); MEAN CORPUSCULAR HGB CONC 30 G/DL (32-36); MEAN CORPUSCULAR VOLUME 85 FL (80-99); MEAN PLATELET VOLUME 10.3 FL (7.4-10.4); MONOCYTES # (AUTO) 0.8 X 10^3 (0.0-1.0); MONOCYTES % (AUTO) 10 % (0-12); NEUTROPHILS # (AUTO) 5.7 X 10^3 (1.8-7.8); NEUTROPHILS % (AUTO) 69 % (42-75); PLATELET COUNT 274 10^3/uL (130-400); RED CELL DISTRIBUTION WIDTH 15.4 % (10.0-14.5); WHITE BLOOD COUNT 8.2 10^3/uL (4.3-11.0)
[2019-12-16 03:49] LABS: ALBUMIN 3.7 GM/DL (3.2-4.5); CHLORIDE 105 MMOL/L (98-107); SODIUM 141 MMOL/L (135-145)
[2019-12-16 03:50] LABS: CALCIUM 8.9 MG/DL (8.5-10.1)
[2019-12-16 03:51] LABS: GLUCOSE 78 MG/DL (70-105); TOTAL PROTEIN 5.9 GM/DL (6.4-8.2)
[2019-12-16 03:52] LABS: CARBON DIOXIDE 25 MMOL/L (21-32)
[2019-12-16 03:53] LABS: BILIRUBIN,TOTAL 0.2 MG/DL (0.1-1.0)
[2019-12-16 03:54] LABS: PHOSPHORUS 3.3 MG/DL (2.3-4.7)
[2019-12-16 03:55] LABS: ALKALINE PHOSPHATASE 104 U/L (40-136); CREATININE SERUM 0.62 MG/DL (0.60-1.30); GFR ESTIMATED > 60
[2019-12-16 03:56] LABS: BUN/CREATININE RATIO 29
[2019-12-16 03:58] LABS: ALANINE AMINOTRANSFERASE 16 U/L (0-55)
[2019-12-16] MEDS: LACTATED RINGERS 1,000 ML IV SCH (06:48)
[2019-12-16] MEDS: methylPREDNISolone 40 MG/ML (Solu-MEDROL) VIAL IV SCH ×3 (06:50→21:47)
[2019-12-16] MEDS ORDERED: IPRATROPIUM INHALER (ATROVENT) 12.9 GM INH SCH (07:00)
[2019-12-16] MEDS ORDERED: ALBUTEROL/IPRATROP (COMBIVENT RESPIMAT) 4 GM INHALER IH PRN (07:30)
--- NOTE | 2019-12-16 07:47 | NUR ---
This RN notified Dr. Arredondo of patient's low urine output, as well as patient is wheezy. Orders received, will continue to monitor.
[2019-12-16] MEDS: PANTOPRAZOLE 40 MG (PROTONIX) VIAL IV SCH (08:51)
[2019-12-16] MEDS: ALBUTEROL/IPRATROP (COMBIVENT RESPIMAT) 4 GM INHALER IH SCH ×4 (10:26→22:09)
[2019-12-16] MEDS: LORazepam INJ 2 MG/ML (ATIVAN) VIAL IVP PRN (11:47)
--- NOTE | 2019-12-16 14:17 | NUR ---
Received dietary consult for MST score. Note pt is currently COVID PUI. Will monitor PO intake and have full assessment at a later date. Mikala Garcia MS, RD, LD [phone] cell
--- NOTE | 2019-12-16 16:06 | History & Physical ---
HPI History of Present Illness: 64 yo F with known COPD and home oxygen requirement that came in with worsening shortness of breath. Patient states that she was seen last week and completed steroids, Z-madhu and cefedinir and started to feel better. Over the weekend on Monday she started to get more short of breath and then came to ER on Monday. She has been taking her home trilegy and duoneb. She has been doing his breathing treatments every 4 hrs and getting some relief. She denies any travel or being around anyone who has traveled. No sick contacts. Source: patient Exam Limitations: no limitations Date seen by provider: Dec 16, 2019 Time Seen by Provider: 09:15 Attending Physician Babita Walden DO [facility] Consult Date of Admission Dec 15, 2019 at 20:34 Home Medications Home Medications Reviewed patient Home Medication Reconciliation performed by pharmacy medication reconciliations diesel maintenance technician and/or nursing. Patients Allergies have been reviewed. Allergies Coded Allergies: oxycodone HCl (Verified Adverse Reaction, Severe, BLACK OUT, 01/15/19) morphine (Verified Adverse Reaction, Intermediate, Blackout, 01/15/19) BSN-Mkrcyd-Sndzhh Hx Patient Social History Alcohol Use: Denies Use Recreational Drug Use: Yes Drug of Choice: METH USE--DENIES IV USE--SMOKES IT Smoking Status: Current Everyday Smoker Type Used: Cigarettes 2nd Hand Smoke Exposure: Yes Recent Foreign Travel: No Contact w/other who traveled: No Recent Hopitalizations: No Recent Infectious Disease Expo: No Immunizations Up To Date Tetanus Booster (TDap): Less than 5yrs Date of Pneumonia Vaccine: May 17, 2019 Date of Influenza Vaccine: Feb 12, 2019 Past Medical History 1. COPD 2. tobbaco dependence 3. degenerative disc disease of the lumbar spine 4. osteoarthritis of the hips/hands 5. chronic pain on narcotics 6. hx of breast cancer diagnosed 2004 s/p left lumpectomy 7. hx of Non-Hodgkins lymphoma diagnosed 2004 s/p chemo/radiation -negative PET scan as of 11/2008. -followed by Dr Houston 8. hyperlipidemia 9. anxiety 10. hypothyroidism 11. osteoporosis Past surgical history: 1. left breast lumpectomy 2004 2. appendectomy 3. rotator cuff surgery 2009 4. carpal tunnel surgery 5. tubal ligation 6. hiatal hernia repair Family Medical History Other Significan Family Hx: PMH: -LEFT BREAST CANCER 2003--S/P LUMPECTOMY, CHEMO AND RADIATION; 4 MONTHS LATER, DEVELOPED NON-HODGKIN'S LYMPOMA--S/P CHEMOTHERAPY PSH: -BILATERAL CARPAL TUNNEL -HAND SURGERY -RIGHT SHOULDER SURGERY. -HIATAL HERNIA REPAIR -LEFT BREAST LUMPECTOMY -BTL -APPENDECTOMY Family History: Neoplasm 19 FATHER (LUNG) 19 MOTHER G8 SISTER (OVARIAN) Review of Systems ([facility]) Constitutional: malaise, weakness EENTM: no symptoms reported, nose congestion; No nose pain, No throat pain Respiratory: dyspnea on exertion, short of breath, wheezing Cardiovascular: no symptoms reported; No chest pain, No edema, No palpitations Gastrointestinal: no symptoms reported; No abdominal pain, No constipation, No diarrhea, No nausea, No vomiting Genitourinary: no symptoms reported Musculoskeletal: no symptoms reported; No back pain, No joint pain, No muscle pain Skin: no symptoms reported Psychiatric/Neurological: Weakness Reviewed Test Results Reviewed Test Results Lab Laboratory Tests Test 12/15/19 19:16 12/15/19 19:33 12/15/19 21:24 12/15/19 21:45 Range/Units White Blood Count 9.9 4.3-11.0 10^3/uL Red Blood Count 5.55 4.35-5.85 10^6/uL Hemoglobin 14.4 11.5-16.0 G/DL Hematocrit 46 35-52 % Mean Corpuscular Volume 84 80-99 FL Mean Corpuscular Hemoglobin 26 25-34 PG Mean Corpuscular Hemoglobin Concent 31 L 32-36 G/DL Red Cell Distribution Width 15.4 H 10.0-14.5 % Platelet Count 350 130-400 10^3/uL Mean Platelet Volume 10.6 H 7.4-10.4 FL Neutrophils (%) (Auto) 74 42-75 % Lymphocytes (%) (Auto) 15 12-44 % Monocytes (%) (Auto) 10 0-12 % Eosinophils (%) (Auto) 2 0-10 % Basophils (%) (Auto) 0 0-10 % Neutrophils # (Auto) 7.4 1.8-7.8 X 10^3 Lymphocytes # (Auto) 1.4 1.0-4.0 X 10^3 Monocytes # (Auto) 0.9 0.0-1.0 X 10^3 Eosinophils # (Auto) 0.2 0.0-0.3 10^3/uL Basophils # (Auto) 0.0 0.0-0.1 10^3/uL D-Dimer 0.39 0.00-0.49 UG/ML Sodium Level 140 135-145 MMOL/L Potassium Level 4.2 3.6-5.0 MMOL/L Chloride Level 102 98-107 MMOL/L Carbon Dioxide Level 27 21-32 MMOL/L Anion Gap 11 5-14 MMOL/L Blood Urea Nitrogen 16 7-18 MG/DL Creatinine 0.69 0.60-1.30 MG/DL Estimat Glomerular Filtration Rate > 60 BUN/Creatinine Ratio 23 Glucose Level 94 70-105 MG/DL Calcium Level 9.9 8.5-10.1 MG/DL Corrected Calcium 8.5-10.1 MG/DL Total Bilirubin 0.3 0.1-1.0 MG/DL Aspartate Amino Transf (AST/SGOT) 23 5-34 U/L Alanine Aminotransferase (ALT/SGPT) 20 0-55 U/L Alkaline Phosphatase 122 40-136 U/L C-Reactive Protein High Sensitivity 0.91 H 0.00-0.50 MG/DL Total Protein 7.8 6.4-8.2 GM/DL Albumin 4.6 H 3.2-4.5 GM/DL Procalcitonin 0.04 <0.10 NG/ML Blood Gas Puncture Site LEFT RADIAL Blood Gas Patient Temperature 36.4 Arterial Blood pH 7.25 *L 7.37-7.43 Arterial Blood Partial Pressure CO2 69 H 35-45 MMHG Arterial Blood Partial Pressure O2 57 L 79-93 MMHG Arterial Blood HCO3 30 H 23-27 MMOL/L Arterial Blood Total CO2 31.9 H 21.0-31.0 MMOL/L Arterial Blood Oxygen Saturation 79 L 94-100 % Arterial Blood Base Excess 2.9 H -2.5-2.5 MMOL/L Robby Test POSITIVE Blood Gas Ventilator Setting NO Blood Gas Inspired Oxygen UNK Urine Color YELLOW Urine Clarity CLEAR Urine pH 5.5 5-9 Urine Specific [place] >=1.030 1.016-1.022 Urine Protein 1+ H NEGATIVE Urine Glucose (UA) NEGATIVE NEGATIVE Urine Ketones NEGATIVE NEGATIVE Urine Nitrite NEGATIVE NEGATIVE Urine Bilirubin 1+ H NEGATIVE Urine Urobilinogen 0.2 < = 1.0 MG/DL Urine Leukocyte Esterase NEGATIVE NEGATIVE Urine RBC (Auto) TRACE-I NEGATIVE Urine RBC NONE /HPF Urine WBC 2-5 /HPF Urine Crystals PRESENT H /LPF Urine Amorphous Sediment FEW TREVER URATES H /LPF Urine Bacteria TRACE /HPF Urine Casts PRESENT /LPF Urine Coarse Granular Casts 5-10 H /LPF Urine Mucus SMALL H /LPF Urine Culture Indicated NO Urine Opiates Screen NEGATIVE NEGATIVE Urine Oxycodone Screen NEGATIVE NEGATIVE Urine Methadone Screen NEGATIVE NEGATIVE Urine Propoxyphene Screen NEGATIVE NEGATIVE Urine Barbiturates Screen NEGATIVE NEGATIVE Ur Tricyclic Antidepressants Screen NEGATIVE NEGATIVE Urine Phencyclidine Screen NEGATIVE NEGATIVE Urine Amphetamines Screen POSITIVE H NEGATIVE Urine Methamphetamines Screen POSITIVE H NEGATIVE Urine Benzodiazepines Screen POSITIVE H NEGATIVE Urine Cocaine Screen NEGATIVE NEGATIVE Urine Cannabinoids Screen NEGATIVE NEGATIVE Test 12/16/19 03:05 Range/Units White Blood Count 8.2 4.3-11.0 10^3/uL Red Blood Count 4.82 4.35-5.85 10^6/uL Hemoglobin 12.4 11.5-16.0 G/DL Hematocrit 41 35-52 % Mean Corpuscular Volume 85 80-99 FL Mean Corpuscular Hemoglobin 26 25-34 PG Mean Corpuscular Hemoglobin Concent 30 L 32-36 G/DL Red Cell Distribution Width 15.4 H 10.0-14.5 % Platelet Count 274 130-400 10^3/uL Mean Platelet Volume 10.3 7.4-10.4 FL Neutrophils (%) (Auto) 69 42-75 % Lymphocytes (%) (Auto) 17 12-44 % Monocytes (%) (Auto) 10 0-12 % Eosinophils (%) (Auto) 4 0-10 % Basophils (%) (Auto) 0 0-10 % Neutrophils # (Auto) 5.7 1.8-7.8 X 10^3 Lymphocytes # (Auto) 1.4 1.0-4.0 X 10^3 Monocytes # (Auto) 0.8 0.0-1.0 X 10^3 Eosinophils # (Auto) 0.3 0.0-0.3 10^3/uL Basophils # (Auto) 0.0 0.0-0.1 10^3/uL Blood Gas Puncture Site LEFT RADIAL Blood Gas Patient Temperature 36.6 Arterial Blood pH 7.31 *L 7.37-7.43 Arterial Blood Partial Pressure CO2 59 H 35-45 MMHG Arterial Blood Partial Pressure O2 69 L 79-93 MMHG Arterial Blood HCO3 29 H 23-27 MMOL/L Arterial Blood Total CO2 30.9 21.0-31.0 MMOL/L Arterial Blood Oxygen Saturation 93 L 94-100 % Arterial Blood Base Excess 3.3 H -2.5-2.5 MMOL/L Robby Test POSITIVE Blood Gas Ventilator Setting NO Blood Gas Inspired Oxygen 30 BIPAP Sodium Level 141 135-145 MMOL/L Potassium Level 4.0 3.6-5.0 MMOL/L Chloride Level 105 98-107 MMOL/L Carbon Dioxide Level 25 21-32 MMOL/L Anion Gap 11 5-14 MMOL/L Blood Urea Nitrogen 18 7-18 MG/DL Creatinine 0.62 0.60-1.30 MG/DL Estimat Glomerular Filtration Rate > 60 BUN/Creatinine Ratio 29 Glucose Level 78 70-105 MG/DL Calcium Level 8.9 8.5-10.1 MG/DL Corrected Calcium 9.1 8.5-10.1 MG/DL Phosphorus Level 3.3 2.3-4.7 MG/DL Magnesium Level 2.0 1.6-2.4 MG/DL Total Bilirubin 0.2 0.1-1.0 MG/DL Aspartate Amino Transf (AST/SGOT) 17 5-34 U/L Alanine Aminotransferase (ALT/SGPT) 16 0-55 U/L Alkaline Phosphatase 104 40-136 U/L Total Protein 5.9 L 6.4-8.2 GM/DL Albumin 3.7 3.2-4.5 GM/DL Physical Exam-([facility]) Physical Exam Vital Signs VS - Last 72 Hours, by Label 12/15/19 12/15/19 12/15/19 12/15/19 19:17 20:19 21:33 21:37 Temp 36.2 Pulse 116 89 85 Resp 23 31 18 B/P (MAP) 169/120 (136) 105/66 Pulse Ox 93 99 96 O2 Delivery Nasal Cannula NIV Bilevel O2 Flow Rate 4.00 50.00 30.00 12/15/19 12/15/19 12/15/19 12/15/19 21:42 21:44 22:00 22:00 Temp 36.2 35.8 Pulse 95 116 84 Resp 20 B/P (MAP) 108/70 (83) Pulse Ox 93 92 93 O2 Delivery NIV Bilevel NIV Bilevel O2 Flow Rate 25.00 FiO2 36 25 12/15/19 12/15/19 12/15/19 12/15/19 22:15 22:30 22:45 23:00 Pulse 81 82 84 87 Resp 19 19 20 23 B/P (MAP) 122/67 (85) 116/66 (83) 117/70 (86) 93/59 (70) Pulse Ox 92 92 93 92 O2 Delivery NIV Bilevel NIV Bilevel NIV Bilevel NIV Bilevel O2 Flow Rate 25.00 25.00 25.00 25.00 12/16/19 12/16/19 12/16/19 12/16/19 00:00 01:00 01:00 02:00 Pulse 91 93 93 94 Resp 22 22 22 B/P (MAP) 95/65 (75) 98/73 (81) 112/74 (87) Pulse Ox 92 92 91 O2 Delivery NIV Bilevel NIV Bilevel NIV Bilevel O2 Flow Rate 25.00 25.00 25.00 12/16/19 12/16/19 12/16/19 12/16/19 03:00 03:03 03:11 03:19 Temp 36.6 Pulse 94 Resp 20 B/P (MAP) 109/58 (75) Pulse Ox 96 94 93 O2 Delivery NIV Bilevel NIV Bilevel NIV Bilevel O2 Flow Rate 25.00 30.00 35.00 30.00 12/16/19 12/16/19 12/16/19 12/16/19 03:47 04:00 05:00 06:00 Pulse 97 99 100 Resp 26 28 25 B/P (MAP) 125/76 (92) 119/74 (89) 118/84 (95) Pulse Ox 93 92 94 95 O2 Delivery NIV Bilevel NIV Bilevel NIV Bilevel NIV Bilevel O2 Flow Rate 30.00 30.00 30.00 FiO2 30 12/16/19 12/16/19 12/16/19 12/16/19 06:45 06:58 07:00 07:00 Pulse 105 105 Resp 23 B/P (MAP) 140/94 (109) Pulse Ox 92 92 93 O2 Delivery NIV Bilevel Nasal Cannula Nasal Cannula O2 Flow Rate 25.00 5.00 5.00 12/16/19 12/16/19 12/16/19 12/16/19 08:00 08:00 08:53 09:00 Temp 36.3 Pulse 98 114 Resp 23 21 B/P (MAP) 116/96 (103) 126/92 (103) Pulse Ox 98 94 95 O2 Delivery Nasal Cannula Nasal Cannula Nasal Cannula O2 Flow Rate 5.00 5.00 5.00 12/16/19 12/16/19 12/16/19 12/16/19 10:00 10:33 11:00 12:00 Pulse 104 93 106 Resp 21 36 27 B/P (MAP) 116/90 (99) 120/82 (95) 131/86 (101) Pulse Ox 94 92 94 94 O2 Delivery Nasal Cannula Nasal Cannula Nasal Cannula Nasal Cannula O2 Flow Rate 5.00 5.00 5.00 5.00 12/16/19 12/16/19 12/16/19 12/16/19 12:00 12:46 13:00 14:00 Pulse 103 93 93 Resp 20 B/P (MAP) 104/70 (81) 115/78 (90) Pulse Ox 94 92 88 O2 Delivery Nasal Cannula Nasal Cannula Nasal Cannula O2 Flow Rate 5.00 5.00 5.00 12/16/19 12/16/19 12/16/19 14:30 14:30 15:01 Pulse 88 Resp 19 B/P (MAP) 134/75 (94) Pulse Ox 92 O2 Delivery NIV Bilevel NIV Bilevel O2 Flow Rate 30.00 25.00 40.00 Capillary Refill : Less Than 3 Seconds General Appearance: moderate distress (converstational dyspnea) Neck: non-tender, full range of motion, supple Respiratory: accessory muscle use, wheezing Cardiovascular: normal peripheral pulses, regular rate, rhythm, no murmur Gastrointestinal: normal bowel sounds, non tender, soft, no organomegaly Back: no CVA tenderness, no vertebral tenderness Extremities: normal range of motion, non-tender, no pedal edema, no calf tenderness Neurologic/Psychiatric: sales producer II-XII nml as tested, alert, normal mood/affect, oriented x 3 Skin: normal color, warm/dry Lymphatic: no adenopathy Assessment/Plan Assessment/Plan Admission Status: Inpatient Order (span 2 midnights) Reason for Inpatient Admission: Patient requiring ICU care, IV antibiotics and frequent breathing treatments, expect greater then 48hrs for recovery (1) Acute on chronic respiratory failure Status: Acute Assessment & Plan: 12/15: Likely 2/2 COPD Exacerbation, continue to titrate oxygen as tolerated, Steroids, MAT protocol Qualifiers: Qualified Codes: J96.21 - Acute and chronic respiratory failure with hypoxia; J96.22 - Acute and chronic respiratory failure with hypercapnia (2) COPD exacerbation Status: Acute (3) Hypertension Status: Chronic Assessment & Plan: 12/15: Continue home meds Qualifiers: Qualified Codes: I10 - Essential (primary) hypertension (4) Hypothyroidism Status: Chronic Assessment & Plan: 12/15: TSH pending, restarted home dose 175 mcg daily Qualifiers: Qualified Codes: E03.9 - Hypothyroidism, unspecified (5) Substance abuse Status: Chronic Assessment & Plan: - Discussed the need for cessation (6) Tobacco abuse Status: Chronic Assessment & Plan: - Nicotine patch (7) DVT prophylaxis Status: Acute Assessment & Plan: - Lovenox Clinical Quality Measures DVT/VTE Risk/Contraindication: Risk Factor Score Per Nursin RFS Level Per Nursing on Admit: 4+=Very High OLIVA ALMODOVAR MD Dec 16, 2019 16:06
[2019-12-16] MEDS ORDERED: LORazepam INJ 2 MG/ML (ATIVAN) VIAL IVP PRN (21:15)
[2019-12-16] MEDS: ENOXAPARIN 40 MG/0.4 ML (LOVENOX) SYR SC SCH (21:47)
[2019-12-17] VITALS (23 sets, daily range): BP systolic 108–165; BP diastolic 46–111
[2019-12-17] MEDS: ALBUTEROL/IPRATROP (COMBIVENT RESPIMAT) 4 GM INHALER IH SCH ×6 (02:42→20:59)
[2019-12-17 03:24] LABS: BASOPHILS % (AUTO) 0 % (0-10); EOSINOPHILS % (AUTO) 0 % (0-10); HEMATOCRIT 39 % (35-52); LYMPHOCYTES # (AUTO) 0.5 X 10^3 (1.0-4.0); LYMPHOCYTES % (AUTO) 6 % (12-44); MEAN CORPUSCULAR HEMOGLOBIN 26 PG (25-34); MEAN CORPUSCULAR HGB CONC 31 G/DL (32-36); MEAN CORPUSCULAR VOLUME 85 FL (80-99); MEAN PLATELET VOLUME 10.5 FL (7.4-10.4); MONOCYTES # (AUTO) 0.1 X 10^3 (0.0-1.0); MONOCYTES % (AUTO) 1 % (0-12); NEUTROPHILS # (AUTO) 8.5 X 10^3 (1.8-7.8); NEUTROPHILS % (AUTO) 93 % (42-75); PLATELET COUNT 271 10^3/uL (130-400); RED CELL DISTRIBUTION WIDTH 14.9 % (10.0-14.5); WHITE BLOOD COUNT 9.1 10^3/uL (4.3-11.0)
[2019-12-17 03:48] LABS: BUN/CREATININE RATIO 28; CARBON DIOXIDE 25 MMOL/L (21-32); CHLORIDE 105 MMOL/L (98-107); CREATININE SERUM 0.61 MG/DL (0.60-1.30); GFR ESTIMATED > 60; GLUCOSE 129 MG/DL (70-105); MAGNESIUM 1.9 MG/DL (1.6-2.4); POTASSIUM 4.6 MMOL/L (3.6-5.0); SODIUM 141 MMOL/L (135-145)
[2019-12-17 04:03] LABS: ANISOCYTOSIS SLIGHT; HYPOCHROMASIA SLIGHT; LYMPHOCYTES % (MANUAL) 5 %; MONOCYTES % (MANUAL) 1 %; NEUTROPHILS % (MANUAL) 94 %
[2019-12-17] MEDS: methylPREDNISolone 40 MG/ML (Solu-MEDROL) VIAL IV SCH ×3 (06:10→22:36)
[2019-12-17] MEDS: LEVOTHYROXINE 100 MCG (LEVOTHROID) TAB PO SCH (06:10)
[2019-12-17] MEDS: LEVOTHYROXINE 75 MCG (LEVOTHROID) TABLET PO SCH (06:10)
[2019-12-17] MEDS ORDERED: RT-LEVALBUTEROL (XOPENEX) 1.25 MG/3 ML NEB NON-FORMULARY INH PRN (09:00)
[2019-12-17] MEDS: PANTOPRAZOLE 40 MG (PROTONIX) VIAL IV SCH (09:03)
[2019-12-17] MEDS ORDERED: RT-LEVALBUTEROL (XOPENEX) 1.25 MG/3 ML NEB NON-FORMULARY ONE (09:06)
[2019-12-17] MEDS ORDERED: LORA10TA7 PO (10:14)
[2019-12-17] MEDS ORDERED: IPRA0.2S51 IH (10:14)
[2019-12-17] MEDS ORDERED: ALB0.5V INH (10:14)
--- NOTE | 2019-12-17 10:51 | NUR ---
SPOKE WITH THE PT AND WENT THRU THE EXT MED HISTORY TO COMPLETE THE MED REC PT HAD RECENTLY BEEN PRESCRIBED PREDNISONE AND AZITHROMYCIN BUT THE PT SAID SHE FINISHED THE THERAPIES BEFORE SHE WAS ADMITTED ACTIVE MEDS THAT ARE NOT LISTED ON THE EXT MED HISTORY: 11-24-2019 LORATADINE 10MG #30/30DS 11-08-2019 ALBUTEROL 0.083 #30 VIALS 11-08-2019 IPRATROPIUM #30 VIALS PT DENIES TAKING ANY OTC MEDICATIONS AT THIS TIME
[2019-12-17] MEDS: ADVAIR HFA 115/21 MCG INHALER 8 GM IH SCH (20:59)
--- NOTE | 2019-12-17 22:36 | Progress Note ---
Subjective Subjective/Events-last exam Patient states that she is feeling better this AM. Still short of breath limiting activity. Tolerating PO diet. Review of Systems Pulmonary: Dyspnea, Cough Cardiovascular: No: Chest Pain, Palpitations Gastrointestinal: No: Nausea, Vomiting, Abdominal Pain, Diarrhea, Constipation Genitourinary: No Dysuria, No Frequency, No Incontinence Neurological: Weakness, Incoordination Objective Exam Last Set of Vital Signs Vital Signs Date Time Temp Pulse Resp B/P (MAP) Pulse Ox O2 Delivery O2 Flow Rate FiO2 12/17/19 21:15 98 Nasal Cannula 4.00 12/17/19 21:00 85 24 161/103 (122) 12/17/19 20:00 36.4 12/17/19 04:00 30 Capillary Refill : Less Than 3 Seconds I&O Intake and Output 12/17/19 00:00 Intake Total 2710 ml Output Total 750 ml Balance 1960 ml Intake Oral 710 ml IV Total 2000 ml Output Urine Total 750 ml General: Alert, Oriented X3, Cooperative, Moderate Distress (converstational dyspnea) Lungs: Other (diffuse wheezing, + accessory muscle use) Heart: Regular Rate, No Murmurs Abdomen: Normal Bowel Sounds, Soft, No Tenderness, No Masses Extremities: No Edema, No Tenderness/Swelling Skin: No Rashes, No Breakdown Neuro: Normal Speech, Sensation Intact, Cranial Nerves 3-12 NL Results/Procedures Lab Laboratory Tests 12/17/19 03:15: White Blood Count 9.1, Red Blood Count 4.61, Hemoglobin 12.0, Hematocrit 39, Mean Corpuscular Volume 85, Mean Corpuscular Hemoglobin 26, Mean Corpuscular Hemoglobin Concent 31L, Red Cell Distribution Width 14.9H, Platelet Count 271, Mean Platelet Volume 10.5H, Neutrophils (%) (Auto) 93H, Lymphocytes (%) (Auto) 6L, Monocytes (%) (Auto) 1, Eosinophils (%) (Auto) 0, Basophils (%) (Auto) 0, Neutrophils # (Auto) 8.5H, Lymphocytes # (Auto) 0.5L, Monocytes # (Auto) 0.1, Eosinophils # (Auto) 0.0, Basophils # (Auto) 0.0, Neutrophils % (Manual) 94, Lymphocytes % (Manual) 5, Monocytes % (Manual) 1, Hypochromasia SLIGHT, Basophilic Stippling SLIGHT, Anisocytosis SLIGHT, Sodium Level 141, Potassium Level 4.6, Chloride Level 105, Carbon Dioxide Level 25, Anion Gap 11, Blood Urea Nitrogen 17, Creatinine 0.61, Estimat Glomerular Filtration Rate > 60, BUN/Creatinine Ratio 28, Glucose Level 129H, Calcium Level 9.0, Phosphorus Level 3.0, Magnesium Level 1.9, Thyroid Stimulating Hormone (TSH) 1.31 Microbiology 12/15/19 MRSA Screen - Final, Complete MRSA not isolated Assessment/Plan Assessment/Plan (1) Acute on chronic respiratory failure Status: Acute Assessment & Plan: 12/15: Likely 2/2 COPD Exacerbation, continue to titrate oxygen as tolerated, Steroids, MAT protocol 12/16: Titrated to NC, continue to titrate as tolerated, Will try and transition to PO steroids in AM, Encouraged patient to sit up in chair, IS Qualifiers: Qualified Codes: J96.21 - Acute and chronic respiratory failure with hypox ia; J96.22 - Acute and chronic respiratory failure with hypercapnia (2) COPD exacerbation Status: Acute (3) Hypertension Status: Chronic Assessment & Plan: 12/15: Continue home meds 12/16: Started Lisinopril today Qualifiers: Qualified Codes: I10 - Essential (primary) hypertension (4) Hypothyroidism Status: Chronic Assessment & Plan: 12/15: TSH pending, restarted home dose 175 mcg daily Qualifiers: Qualified Codes: E03.9 - Hypothyroidism, unspecified (5) Substance abuse Status: Chronic Assessment & Plan: - Discussed the need for cessation (6) Tobacco abuse Status: Chronic Assessment & Plan: - Nicotine patch (7) DVT prophylaxis Status: Acute Assessment & Plan: - Lovenox Clinical Quality Measures DVT/VTE Risk/Contraindication: Risk Factor Score Per Nursin RFS Level Per Nursing on Admit: 4+=Very High OLIVA ALMODOVAR MD Dec 17, 2019 22:36
[2019-12-17] MEDS: ENOXAPARIN 40 MG/0.4 ML (LOVENOX) SYR SC SCH (22:37)
[2019-12-18] VITALS (14 sets, daily range): BP systolic 119–168; BP diastolic 74–95
[2019-12-18] MEDS: ALBUTEROL/IPRATROP (COMBIVENT RESPIMAT) 4 GM INHALER IH SCH ×5 (02:32→18:05)
[2019-12-18 03:57] LABS: BASOPHILS % (AUTO) 0 % (0-10); EOSINOPHILS % (AUTO) 0 % (0-10); HEMATOCRIT 41 % (35-52); HEMOGLOBIN 12.5 G/DL (11.5-16.0); LYMPHOCYTES # (AUTO) 0.7 X 10^3 (1.0-4.0); LYMPHOCYTES % (AUTO) 5 % (12-44); MEAN CORPUSCULAR HEMOGLOBIN 26 PG (25-34); MEAN CORPUSCULAR HGB CONC 31 G/DL (32-36); MEAN CORPUSCULAR VOLUME 83 FL (80-99); MEAN PLATELET VOLUME 11.1 FL (7.4-10.4); MONOCYTES # (AUTO) 0.3 X 10^3 (0.0-1.0); MONOCYTES % (AUTO) 2 % (0-12); NEUTROPHILS % (AUTO) 94 % (42-75); PLATELET COUNT 292 10^3/uL (130-400); RED CELL DISTRIBUTION WIDTH 15.1 % (10.0-14.5)
[2019-12-18 04:15] LABS: BUN/CREATININE RATIO 28; CALCIUM 8.9 MG/DL (8.5-10.1); CARBON DIOXIDE 24 MMOL/L (21-32); CHLORIDE 107 MMOL/L (98-107); CREATININE SERUM 0.61 MG/DL (0.60-1.30); GFR ESTIMATED > 60; GLUCOSE 126 MG/DL (70-105); MAGNESIUM 1.9 MG/DL (1.6-2.4); PHOSPHORUS 2.4 MG/DL (2.3-4.7); POTASSIUM 4.5 MMOL/L (3.6-5.0); SODIUM 143 MMOL/L (135-145)
[2019-12-18] MEDS: LEVOTHYROXINE 75 MCG (LEVOTHROID) TABLET PO SCH (06:37)
[2019-12-18] MEDS: LEVOTHYROXINE 100 MCG (LEVOTHROID) TAB PO SCH (06:37)
[2019-12-18] MEDS: methylPREDNISolone 40 MG/ML (Solu-MEDROL) VIAL IV SCH (06:37)
[2019-12-18] MEDS: ADVAIR HFA 115/21 MCG INHALER 8 GM IH SCH (07:20)
[2019-12-18] MEDS: PANTOPRAZOLE 40 MG (PROTONIX) VIAL IV SCH (08:21)
[2019-12-18] MEDS ORDERED: lisINopril 20 MG (PRINIVIL) TABLET PO SCH (09:00)
--- NOTE | 2019-12-18 12:46 | Discharge Summary ---
Diagnosis/Chief Complaint Date of Admission Dec 15, 2019 at 20:34 Date of Discharge Discharge Diagnosis Problems/Diagnosis: (1) Acute on chronic respiratory failure Assessment & Plan: 12/15: Likely 2/2 COPD Exacerbation, continue to titrate oxygen as tolerated, Steroids, MAT protocol 12/16: Titrated to NC, continue to titrate as tolerated, Will try and transition to PO steroids in AM, Encouraged patient to sit up in chair, IS Qualifiers: Qualified Codes: J96.21 - Acute and chronic respiratory failure with hypoxia; J96.22 - Acute and chronic respiratory failure with hypercapnia Status: Acute (2) COPD exacerbation Status: Acute (3) Hypertension Assessment & Plan: 12/15: Continue home meds 12/16: Started Lisinopril today Qualifiers: Qualified Codes: I10 - Essential (primary) hypertension Status: Chronic (4) Hypothyroidism Assessment & Plan: 12/15: TSH pending, restarted home dose 175 mcg daily Qualifiers: Qualified Codes: E03.9 - Hypothyroidism, unspecified Status: Chronic (5) Substance abuse Assessment & Plan: - Discussed the need for cessation Status: Chronic (6) Tobacco abuse Assessment & Plan: - Nicotine patch Status: Chronic (7) DVT prophylaxis Assessment & Plan: - Lovenox Status: Acute Chief Complaint/HPI Chief Complaint/HPI 64 yo F with known COPD and home oxygen requirement that came in with worsening shortness of breath. Patient states that she was seen last week and completed steroids, Z-madhu and cefedinir and started to feel better. Over the weekend on Monday she started to get more short of breath and then came to ER on Monday. She has been taking her home trilegy and duoneb. She has been doing his b reathing treatments every 4 hrs and getting some relief. She denies any travel or being around anyone who has traveled. No sick contacts. Discharge Summary-Simple/Stand Consultations Discharge Physical Examination Allergies: Coded Allergies: oxycodone HCl (Verified Adverse Reaction, Severe, BLACK OUT, 01/15/19) morphine (Verified Adverse Reaction, Intermediate, Blackout, 01/15/19) Vitals & I&Os Vital Sign - Last 12Hours Date Time Temp Pulse Resp B/P (MAP) Pulse Ox O2 Delivery O2 Flow Rate FiO2 12/18/19 11:16 36.6 12/18/19 10:00 80 15 138/78 (98) 92 Nasal Cannula 1.00 12/17/19 04:00 30 Intake and Output 12/18/19 00:00 Intake Total 685 ml Output Total 400 ml Balance 285 ml Hospital Course See final discharge diagnosis. Discharge Instructions to patient/family Please see electronic discharge instructions given to patient. Discharge Medications Reviewed and agree with Discharge Medication list on patient's Discharge Instruction sheet Clinical Quality Measures DVT/VTE Risk/Contraindication: Risk Factor Score Per Nursin RFS Level Per Nursing on Admit: 4+=Very High OLIVA ALMODOVAR MD Dec 18, 2019 12:46
[2019-12-18] MEDS ORDERED: LEVO175T5 PO (12:53)
[2019-12-18] MEDS ORDERED: LISI-552 PO (12:53)
[2019-12-18] MEDS ORDERED: PRD20T PO (12:53)
--- NOTE | 2019-12-18 12:55 | Discharge Summary ---
Discharge [facility] Reconcile Patient Problems Problems Reviewed?: Yes Discharge Medications New, Converted or Re-Newed RX: Transmitted to Pharmacy New Medications: Levothyroxine Sodium (Levothyroxine Sodium) 175 Mcg Tablet 175 MCG PO DAILY, #30 TAB Prednisone (Prednisone) 20 Mg Tab 20 MG PO DAILY, #26 TAB Take 3 tabs x 4 days then 2 tabs x 4 days then 1 tab x 4 days 1/2 x 4 days then Stop Lisinopril (Lisinopril) 20 Mg Tablet 20 MG PO DAILY, #30 TAB Continued Medications: Albuterol Sulfate (Ventolin Hfa) 18 Gm Hfa.aer.ad 2 PUFF INH Q4H PRN for SHORTNESS OF BREATH, INHALER Albuterol Sulfate (Albuterol Sulfate) 2.5 Mg/0.5 Ml Vial.neb 2.5 MG INH Q4H for SHORTNESS OF BREATH, EACH Fluticasone/Umeclidin/Vilanter (Trelegy Ellipta 100-62.5-25) 1 Each Blst.w.dev 1 PUFF INH DAILY, INHALER Ipratropium Norton (Ipratropium Norton) 0.2 Mg/1 Ml Solution 0.2 MG IH Q6H PRN for SHORTNESS OF BREATH, EA Loratadine (Loratadine) 10 Mg Tablet 10 MG PO DAILY, TAB Montelukast Sodium (Montelukast Sodium) 10 Mg Tablet 10 MG PO HS, TAB Patient Instructions Goal/Follow Up Appt: You will be called for a f.u appt on Monday at [facility] Activity & Diet Discharge Diet: Cardiac Diet Activity as Tolerated: Yes OLIVA ALMODOVAR MD Dec 18, 2019 12:55
--- NOTE | 2019-12-18 14:14 | NUR ---
RD ASSESSMENT PMHx: COPD; polysubstance use (methamphetamine, tobacco); CA(breast); HLD; hypothyroidism; osteoporosis PT INTERACTION: Pt was awake and pleasant during consult for MST score. Pt states current appetite is "so-so" and has been this way for a long time. Note avg PO intake >75% meals, per chart review. Pt states following a regular diet at home, and has no issues with chewing/swallowing food. Pt states no recent issues with nausea, vomiting, constipation, or diarrhea. Note last BM was 8/4 and pt not currently on bowel regimen, per chart review. Pt states recent wt gain "of only a couple of pounds." Note recent 11# wt loss x6mon, per chart review. Upon visual assessment, pt appears to be adequately nourished, with no visible signs of muscle/fat wasting, and a BMI of 22.6 (Normal BMI for age). Given PO intake, wt hx, and visual assessment, pt does not meet criteria for malnutrition per ASPEN guidelines. ABNORMAL NUTRITION-RELATED LAB VALUES LOW: HIGH: glu 126 Est. kcal needs: 1425 kcal | 25 kcal/kg Est. Pro needs: 57 g Pro | 1.0 g Pro/kg PES STATEMENT: Given current PO intake, no nutrition diagnosis at this time (NO-1.1) INTERVENTION: Continue with current diet order of Regular diet. Will continue to follow and reassess as pt needs, intake, and status change. MONITOR/EVALUATE: PO Intake; Plan of Care; Hydration Status; Weight Status; Lab Values Mikala Garcia, MS, RD, LD
[2019-12-19] MEDS ORDERED: PANTOPRAZOLE 40 MG (PROTONIX) TAB PO SCH (09:00)
== END 2019-12-18 19:05 | disposition home or self-care (01) | DRG 189 ==
LOC: EDUNIT# 18:50 → ER 18:51 → ICU 20:34
PROVIDERS: ADMIT Internal Medicine; ATTEND Family Medicine
DX: J96.20 Acute and chronic respiratory failure, unspecified whether with hypoxia or hypercapnia (principal); J44.1 Chronic obstructive pulmonary disease with (acute) exacerbation; Z99.81 Dependence on supplemental oxygen; F17.210 Nicotine dependence, cigarettes, uncomplicated; E78.00 Pure hypercholesterolemia, unspecified; I10 Essential (primary) hypertension; K21.9 Gastro-esophageal reflux disease without esophagitis; K44.9 Diaphragmatic hernia without obstruction or gangrene; M16.0 Bilateral primary osteoarthritis of hip; M19.042 Primary osteoarthritis, left hand; M19.041 Primary osteoarthritis, right hand; M51.36 Other intervertebral disc degeneration, lumbar region; G89.29 Other chronic pain; E03.9 Hypothyroidism, unspecified; F41.9 Anxiety disorder, unspecified; E78.5 Hyperlipidemia, unspecified; M81.0 Age-related osteoporosis without current pathological fracture; Z87.01 Personal history of pneumonia (recurrent); Z85.3 Personal history of malignant neoplasm of breast; Z85.72 Personal history of non-Hodgkin lymphomas; Z90.49 Acquired absence of other specified parts of digestive tract
CPT/HCPCS: 36415; 71045; 80048; 80053; 80306; 81000; 82805; 83735; 84100; 84145; 84443; 85007; 85025; 85027; 85379; 86141; 87081; 87635; 94640; 94660; 94664; 96374; 96375; 99291

== ENCOUNTER 2020-05-12 23:21 | Emergency (ER) | payer MEDICARE ==
[~2020-05-12] VITALS: Ht 158 cm; Wt 56.9 kg
[~2020-05-12 23:21] MED LIST changes: +ALB0.5V INH; +IPRA0.2S51 IH; +LISI-552 PO; -MONT10TA26 PO; +MONT10TA97 PO
[2020-05-12] MEDS ORDERED: ALBUTEROL/IPRATROP (COMBIVENT RESPIMAT) 4 GM INHALER ONE (23:56)
[2020-05-12] MEDS ORDERED: ADVAIR HFA 115/21 MCG INHALER 8 GM IH ONE (23:56)
[2020-05-13] MEDS ORDERED: KETOROLAC 30 MG/ML VIAL IVP ONE
--- NOTE | 2020-05-13 00:12 | ED Chest Pain ---
General Chief Complaint: Chest Wall Stated Complaint: COPD,LEFT SIDE PAIN-HURTS WHEN SHE COUGHS Nursing Triage Note: cough x2 weeks, left lower rib pain. denies covid symptoms. denies injury. Nursing Sepsis Screen: No Definite Risk Source: patient History of Present Illness Date Seen by Provider: May 13, 2020 Time Seen by Provider: 23:35 Initial Comments PT ARRIVES VIA POV FROM HOME--LIVES ALONE C/O LEFT LOWER CHEST/RIB PAIN SINCE LAST NIGHT PAIN IS WORSE WITH COUGHING PT HAS COPD, BUT HAS HAD INCREASED COUGH THE LAST COUPLE OF DAYS. COUGH IS NON- PRODUCTIVE C/O INCREASED SHORTNESS OF BREATH THE LAST COUPLE OF DAYS NO FEVER NO SORE THROAT NO LOSS OF TASTE/SMELL NO GI SYMPTOMS NO HEADACHE NO BODY ACHES PT HAS BEEN OUT OF HER TRELEGY FOR 2 DAYS--STATES SHE HAS TO ORDER A NEW ONE, BUT HAS NOT DONE THAT YET. LAST FILLED ON 04/13/20 PT USED ALBUTEROL INHALER X 1 THIS MORNING HAS NOT TAKEN ANYTHING FOR PAIN PT CONTINUES TO SMOKE CIGARETTES--UP TO 3 PPD ALSO HAS LONG HISTORY OF SMOKING METH, ALSO THC. NO KNOWN SICK CONTACTS OR EXPOSURE TO COVID-19. PT WITH MULTITUDE OF VISITS/ADMITS HERE--NEARLY ALL FOR COPD-RELATED ISSUES PT WITH LONGSTANDING EXTREME NON-COMPLIANCE IN ALL ASPECTS OF CARE PT HAS REPEATEDLY REFUSED TO BE ON BIPAP OR VENTILATOR/INTUBATED ON PREVIOUS ADMITS. PCP: DONNIE, SERG DELGADO LANGUAGE TUTOR: DR. ELIZABETH NO ONCOLOGIST Allergies and Home Medications Allergies Coded Allergies: oxycodone HCl (Verified Adverse Reaction, Severe, BLACK OUT, 01/15/19) morphine (Verified Adverse Reaction, Intermediate, Blackout, 01/15/19) Home Medications Albuterol Sulfate 18 Gm Hfa.aer.ad, 2 PUFF INH Q4H PRN for SHORTNESS OF BREATH, (Reported) Albuterol Sulfate 2.5 Mg/0.5 Ml Vial.neb, 2.5 MG INH Q4H, (Reported) Benzonatate 100 Mg Capsule, 200 MG PO TID Prescribed by: DAWSON ALVARADO on 05/13/20134 Dexamethasone 6 Mg Tablet, 6 MG PO DAILY Prescribed by: DAWSON ALVARADO on 05/13/20134 Doxycycline Hyclate 100 Mg Tablet, 100 MG PO BID Prescribed by: DAWSON ALVARADO on 05/13/20 0135 Fluticasone/Umeclidin/Vilanter 1 Each Blst.w.dev, 1 PUFF INH DAILY, (Reported) Ipratropium [place] 0.2 Mg/1 Ml Solution, 0.2 MG IH Q6H PRN for SHORTNESS OF BREATH, (Reported) Levothyroxine Sodium 175 Mcg Tablet, 175 MCG PO DAILY Prescribed by: OLIVA ALMODOVAR on 12/18/19 125 Lisinopril 20 Mg Tablet, 20 MG PO DAILY Prescribed by: OLIVA ALMODOVAR on 12/18/19 125 Loratadine 10 Mg Tablet, 10 MG PO DAILY, (Reported) Montelukast Sodium 10 Mg Tablet, 10 MG PO HS, (Reported) Prednisone 20 Mg Tab, 20 MG PO DAILY Take 3 tabs x 4 days then 2 tabs x 4 days then 1 tab x 4 days 1/2 x 4 days then Stop Prescribed by: OLIVA ALMODOVAR on 12/18/19 125 Patient Home Medication List Home Medication List Reviewed: Yes Review of Systems Review of Systems Constitutional: no symptoms reported; No chills, No diaphoresis, No dizziness, No fever, No malaise, No weakness EENTM: No Symptoms Reported; No Nose Congestion, No Throat Pain Respiratory: See HPI, Cough, Shortness of Air Cardiovascular: See HPI, Chest Pain; Denies Edema, Denies Lightheadedness, Denies Palpitations Gastrointestinal: No Symptoms Reported; Denies Abdominal Pain, Denies Diarrhea, Denies Nausea, Denies Vomiting Genitourinary: No Symptoms Reported Musculoskeletal: see HPI (LEFT LOWER CHEST/RIB PAIN ); No back pain, No neck pain Skin: No rash Psychiatric/Neurological: No Symptoms Reported Endocrine: No Symptoms Reported Hematologic/Lymphatic: No Symptoms Reported Past Fzhyloa-Katask-Npevmu Hx Past Med/Social Hx: Reviewed and Corrections made Patient Social History Alcohol Use: Past History Recreational Drug Use: Yes Smoking Status: Current Everyday Smoker (SMOKES UP TO 3 PPD) Type Used: Cigarettes 2nd Hand Smoke Exposure: Yes Recent Foreign Travel: No Contact w/Someone Who Travel: No Recent Infectious Disease Expo: No Recent Hopitalizations: No Immunizations Up To Date Tetanus Booster (TDap): Less than 5yrs Date of Pneumonia Vaccine: May 17, 2019 Date of Influenza Vaccine: Feb 12, 2019 Seasonal Allergies Seasonal Allergies: No Past Medical History Surgeries: Yes (BILAT CARPAL TUNNEL;L BREAST LUMPECTOMY; HIATAL HERNIA REPAIR; HAND SURGERY) Abdominal, Appendectomy, Breast, Orthopedic, Tubal Ligation Respiratory: Yes (O2 DEPENDENT AT 2L/NC) Pneumonia, Chronic Bronchitis, COPD Cardiac: Yes (CAROTID ARTERY DISEASE) High Cholesterol, Hypertension, Peripheral Vascular Neurological: No 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: No 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 NON-H LYMPH) Breast, Lymphoma Did You Recieve Any Treatments: Yes What Type of Treatment Did You: Chemotherapy, Radiation, Surgical Intervention LEFT BREAST CANCER 2003--S/P LEFT BREAST LUMPECTOMY + CHEMO + RADIATION 4 MONTHS LATER, DEVELOPED NON-HODGKIN'S LYMPHOMA--TREATED WITH CHEMO Psychosocial: Yes (POLYSUBSTANCE ABUSE) Anxiety Integumentary: No Blood Disorders: No Family Medical History Neoplasm 19 FATHER (LUNG) 19 MOTHER G8 SISTER (OVARIAN) SOCIAL HISTORY: -ETOH--HISTORY OF ABUSE, CLAIMS NO RECENT USE -DRUGS--LONG HISTORY OF METH USE--DENIES IV USE, STATES SHE SMOKES IT, ALSO THC USE -SMOKES 2-3 PPD SINCE AGE 9 PMH: -LEFT BREAST CANCER 2003--S/P LUMPECTOMY, CHEMO AND RADIATION; 4 MONTHS LATER, DEVELOPED NON-HODGKIN'S LYMPOMA--S/P CHEMOTHERAPY PSH: -BILATERAL CARPAL TUNNEL -HAND SURGERY -RIGHT SHOULDER SURGERY. -HIATAL HERNIA REPAIR -LEFT BREAST LUMPECTOMY -BTL -APPENDECTOMY LONG HISTORY OF EXTREME NON-COMPLIANCE IN ALL ASPECTS OF CARE PT HAS REPEATEDLY REFUSED BIPAP/CPAP AND VENTILATOR/INTUBATION ON PREVIOUS VISITS Physical Exam Vital Signs Vital Signs - First Documented 05/12/20 23:29 Temp 36.7 Pulse 112 Resp 20 B/P (MAP) 154/90 (111) Pulse Ox 98 O2 Delivery Nasal Cannula O2 Flow Rate 3.00 Capillary Refill : Less Than 3 Seconds Height, Weight, BMI Height: 5'2.00" Weight: 117lbs. 0.0oz. [id number]; 22.00 BMI Method:Stated General Appearance: WD/WN, Anxious, Other (MILD DYSPNEA, TALKS IN SHORT SENTENCES. REEKS OF CIGARETTES, UNKEMPT; FREQUENT TIGHT COUGH) HEENT: PERRL/EOMI, Normal ENT Inspection Neck: Normal Inspection Respiratory: Accessory Muscle Use, Decreased Breath Sounds, Wheezing, Other (MILD DYSPNEA; DECREASED AERATION IN ALL LUNG JOHNSON WITH FAINT/TIGHT EXPIRATORY WHEEZING IN ALL LUNG JOHNSON. LEFT LOWER ANTERIOR RIB AREA MARKEDLY TENDER TO PALPATION--REPRODUCES PAIN . 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 II- XII Norm as Tested, Other (MILDLY ANXIOUS) Skin: Normal Color, Warm/Dry Progress/Results/Core Measures Results/Orders Lab Results Laboratory Tests Test 05/13/20 00:06 05/13/20 00:10 05/13/20 00:25 Range/Units Coronavirus 2019 ([facility]) Negative Negative White Blood Count 8.3 4.3-11.0 10^3/uL Red Blood Count 4.97 3.80-5.11 10^6/uL Hemoglobin 11.9 11.5-16.0 g/dL Hematocrit 41 35-52 % Mean Corpuscular Volume 82 80-99 fL Mean Corpuscular Hemoglobin 24 L 25-34 pg Mean Corpuscular Hemoglobin Concent 29 L 32-36 g/dL Red Cell Distribution Width 14.9 H 10.0-14.5 % Platelet Count 317 130-400 10^3/uL Mean Platelet Volume 10.1 9.0-12.2 fL Immature Granulocyte % (Auto) 0 % Neutrophils (%) (Auto) 72 42-75 % Lymphocytes (%) (Auto) 19 12-44 % Monocytes (%) (Auto) 7 0-12 % Eosinophils (%) (Auto) 2 0-10 % Basophils (%) (Auto) 0 0-10 % Neutrophils # (Auto) 5.9 1.8-7.8 10^3/uL Lymphocytes # (Auto) 1.6 1.0-4.0 10^3/uL Monocytes # (Auto) 0.6 0.0-1.0 10^3/uL Eosinophils # (Auto) 0.1 0.0-0.3 10^3/uL Basophils # (Auto) 0.0 0.0-0.1 10^3/uL Immature Granulocyte # (Auto) 0.0 0.0-0.1 10^3/uL Erythrocyte Sedimentation Rate 20 0-30 MM/HR Prothrombin Time 13.0 12.2-14.7 SEC INR Comment 0.9 0.8-1.4 Activated Partial Thromboplast Time 29 24-35 SEC D-Dimer 0.48 0.00-0.49 UG/ML Sodium Level 140 135-145 MMOL/L Potassium Level 3.5 L 3.6-5.0 MMOL/L Chloride Level 103 98-107 MMOL/L Carbon Dioxide Level 28 21-32 MMOL/L Anion Gap 9 5-14 MMOL/L Blood Urea Nitrogen 10 7-18 MG/DL Creatinine 0.58 L 0.60-1.30 MG/DL Estimat Glomerular Filtration Rate > 60 BUN/Creatinine Ratio 17 Glucose Level 124 H 70-105 MG/DL Calcium Level 9.3 8.5-10.1 MG/DL Corrected Calcium 9.4 8.5-10.1 MG/DL Magnesium Level 1.7 1.6-2.4 MG/DL Total Bilirubin 0.2 0.1-1.0 MG/DL Aspartate Amino Transf (AST/SGOT) 15 5-34 U/L Alanine Aminotransferase (ALT/SGPT) 16 0-55 U/L Alkaline Phosphatase 127 40-136 U/L Lactate Dehydrogenase 161 125-220 U/L Total Creatine Kinase 30 29-168 U/L Creatine Kinase MB 1.1 <6.6 NG/ML Myoglobin 30.5 10.0-92.0 NG/ML Troponin I < 0.028 <0.028 NG/ML C-Reactive Protein High Sensitivity 0.43 0.00-0.50 MG/DL B-Type Natriuretic Peptide 39.3 <100.0 PG/ML Total Protein 6.7 6.4-8.2 GM/DL Albumin 3.9 3.2-4.5 GM/DL Amylase Level 55 25-125 U/L Lipase 12 8-78 U/L Procalcitonin 0.03 <0.10 NG/ML Urine Color YELLOW Urine Clarity SL CLOUDY Urine pH 5.5 5-9 Urine Specific [place] >=1.030 1.016-1.022 Urine Protein 1+ H NEGATIVE Urine Glucose (UA) NEGATIVE NEGATIVE Urine Ketones NEGATIVE NEGATIVE Urine Nitrite NEGATIVE NEGATIVE Urine Bilirubin 1+ H NEGATIVE Urine Urobilinogen 0.2 < = 1.0 MG/DL Urine Leukocyte Esterase NEGATIVE NEGATIVE Urine RBC (Auto) NEGATIVE NEGATIVE Urine RBC NONE /HPF Urine WBC NONE /HPF Urine Squamous Epithelial Cells 5-10 /HPF Urine Crystals NONE /LPF Urine Bacteria TRACE /HPF Urine Casts NONE /LPF Urine Mucus LARGE H /LPF Urine Culture Indicated NO Micro Results Microbiology 05/13/20 Influenza Types A,B Antigen (RAEANN) - Final, Complete My Orders Orders - DAWSON ALVARADO DO Ed Iv/Invasive Line Start (05/12/20 23:34) Ekg Tracing (05/12/20 23:34) Monitor-Rhythm Ecg Trace Only (05/12/20 23:34) Chest 1 View, Ap/Pa Only (05/12/20 23:34) Ed Iv/Invasive Line Start (05/12/20 23:50) O2 (05/12/20 23:50) Amylase (05/12/20 23:50) BNP (05/12/20 23:50) Cbc With Automated Diff (05/12/20 23:50) Comprehensive Metabolic Panel (05/12/20 23:50) Creatine Kinase (05/12/20 23:50) Creatine Kinase Mb (05/12/20 23:50) Hs C Reactive Protein (05/12/20 23:50) Fibrin Degradation Products (05/12/20 23:50) Lipase (05/12/20 23:50) Magnesium (05/12/20 23:50) Procalcitonin (Pct) (05/12/20 23:50) Protime With Inr (05/12/20 23:50) Partial Thromboplastin Time (05/12/20 23:50) Ua Culture If Indicated (05/12/20 23:50) Blood Culture (05/12/20 23:50) Influenza A And B Antigens (05/12/20 23:50) Erythrocyte Sedimentation Rate (05/12/20 23:50) Myoglobin Serum (05/12/20 23:50) Troponin I (05/12/20 23:50) Dexamethasone Injection (Decadron Inje (05/13/20 00:00) LDH (05/12/20 23:50) Coronavirus Sars-Cov-2 So 2018 (05/12/20 23:50) Covid 19 Inhouse Test (05/12/20 23:50) Fluticasone/Salmeterol 115/21 (Advair Hf (05/13/20 08:00) Albuterol/Ipratropium Inhaler (Combivent (05/13/20 09:00) Rt Request For Service (05/12/20 23:50) Ketorolac Injection (Toradol Injection) (05/13/20 00:00) Fluticasone/Salmeterol 115/21 (Advair Hf (05/12/20 23:56) Albuterol/Ipratropium Inhaler (Combivent (05/12/20 23:56) Doxycycline Hyclate Tablet (Vibramycin T (05/13/20 01:30) Alcohol (05/13/20 01:47) Drug Screen Stat (Urine) (05/13/20 01:47) Medications Given in ED Current Medications Medications Dose Ordered Sig/Phani Route Start Time Stop Time Status Last Admin Dose Admin Albuterol/ Ipratropium 4 gm QID ONCE IH 05/13/20 09:00 05/13/20 01:46 DC 05/13/20 00:17 4 GM Dexamethasone Sodium Phosphate 6 mg ONCE ONCE IV 05/13/20 00:00 05/13/20 00:01 DC 05/13/20 00:17 6 MG Ketorolac Tromethamine 30 mg ONCE ONCE IVP 05/13/20 00:00 05/13/20 00:01 DC 05/13/20 00:17 30 MG Salmeterol Xinafoate/ Fluticasone 4 puff RTBID ONCE IH 05/13/20 08:00 05/13/20 01:46 DC 05/13/20 00:17 4 PUFF Vital Signs/I&O 05/12/20 05/12/20 05/13/20 05/13/20 23:29 23:35 00:17 01:45 Temp 36.7 36.7 36.6 Pulse 112 85 Resp 20 16 B/P (MAP) 154/90 (111) 136/84 (111) Pulse Ox 98 98 98 O2 Delivery Nasal Cannula Nasal Cannula Nasal Cannula O2 Flow Rate 3.00 3.00 3.00 Blood Pressure Mean: 111 Progress Progress Note : Progress Note PLACED IN ISOLATION ROOM PPE WORN AT ALL TIMES COVID-19 TESTING PERFORMED PT ADVISED OF NEED FOR QUARANTINE GIVEN DECADRON, TORADOL, AND ADVAIR +M COMBIVENT INHALERS WITH MUCH IMPROVEMENT IN SYMPTOMS O2 SATS 100% ON 2L/NC--PT'S NORMAL HOME O2 RATE Initial ECG Impression Date: May 13, 2020 Initial ECG Impression Time: 23:40 Initial ECG Rate: 108 Initial ECG Rhythm: S.Tach Initial ECG Impression: Nonspecific Changes Initial ECG Comparisson: Unchanged Diagnostic Imaging Comments CXR--NO ACUTE PROCESS, CHRONIC COPD CHANGES--PENDING RADIOLOGIST REVIEW Reviewed: Reviewed by Me Departure Impression Primary Impression: Left-sided chest wall pain Additional Impressions: COPD exacerbation Person under investigation for COVID-19 ILLICIT DRUG USE, INCLUDING METH AND THC Disposition: 01 HOME, SELF-CARE Condition: Improved Departure-Patient Inst. Referrals: [facility] [place] (PCP) Primary Care Physician OUMOU DELGADO (Family) Primary Care Physician Patient Instructions: Exacerbation of COPD (DC), Costochondritis (DC), Preventing the Spread of an Infectious Disease, Coronavirus Disease 2019 (COVID- 19) ED Add. Discharge Instructions: HOME, REST LOTS OF CLEAR LIQUIDS NO SMOKING! CONTINUE YOUR REGULAR MEDICATIONS PRESCRIBED USE ADVAIR INHALER 2 PUFFS TWICE A DAY EVERY DAY--USE THIS ONLY UNTIL YOUR T RELEGY INHALER IS REFILLED USE COMBIVENT INHALER 2 PUFFS EVERY 4 HOURS NEEDED FOR BREATHING--THIS REPLACES YOUR PLAIN ALBUTEROL INHALER AND NEBULIZER TYLENOL NEEDED FOR PAIN OR FEVER QUARANTINE YOURSELF AND ALL CLOSE CONTACTS FOR 2 WEEKS OR UNTIL CLEARED BY YOUR DR OR HEALTH DEPT FOLLOW UP WITH YOUR DR IN 3-4 DAYS IF NO BETTER, YOU MAY NEED TO BE RE-TESTED FOR COVID IF YOU ARE STILL HAVING SYMPTOMS. All discharge instructions reviewed with patient and/or family. Voiced understanding. Scripts Benzonatate (TESSALON PERLES) 100 Mg Capsule 200 MG PO TID, #60 CAP Prov: DAWSON ALVARADO DO 05/13/20 Dexamethasone (Decadron) 6 Mg Tablet 6 MG PO DAILY, #10 TAB Prov: DAWSON ALVARADO DO 05/13/20 Doxycycline Hyclate (Doxycycline Hyclate) 100 Mg Tablet 100 MG PO BID, #20 TAB 0 Refills Prov: DAWSON ALVARADO DO 05/13/20 DAWSON ALVARADO DO May 13, 2020 00:11
[2020-05-13 00:27] LABS: BASOPHILS % (AUTO) 0 % (0-10); EOSINOPHILS # (AUTO) 0.1 10^3/uL (0.0-0.3); EOSINOPHILS % (AUTO) 2 % (0-10); HEMATOCRIT 41 % (35-52); HEMOGLOBIN 11.9 g/dL (11.5-16.0); LYMPHOCYTES # (AUTO) 1.6 10^3/uL (1.0-4.0); LYMPHOCYTES % (AUTO) 19 % (12-44); MEAN CORPUSCULAR HEMOGLOBIN 24 pg (25-34); MEAN CORPUSCULAR HGB CONC 29 g/dL (32-36); MEAN CORPUSCULAR VOLUME 82 fL (80-99); MEAN PLATELET VOLUME 10.1 fL (9.0-12.2); MONOCYTES # (AUTO) 0.6 10^3/uL (0.0-1.0); MONOCYTES % (AUTO) 7 % (0-12); NEUTROPHILS # (AUTO) 5.9 10^3/uL (1.8-7.8); NEUTROPHILS % (AUTO) 72 % (42-75); PLATELET COUNT 317 10^3/uL (130-400); WHITE BLOOD COUNT 8.3 10^3/uL (4.3-11.0)
[2020-05-13 00:32] LABS: CLARITY,URINE SL CLOUDY; COLOR,URINE YELLOW; GLUCOSE, URINE (UA) NEGATIVE (NEGATIVE); KETONES,URINE NEGATIVE (NEGATIVE); LEUKOCYTE ESTERASE ,URINE NEGATIVE (NEGATIVE); NITRITE,URINE NEGATIVE (NEGATIVE); PH,URINE 5.5 (5-9); PROTEIN,URINE 1+ (NEGATIVE)
[2020-05-13 00:38] LABS: ALBUMIN 3.9 GM/DL (3.2-4.5); CHLORIDE 103 MMOL/L (98-107); FIBRIN DEGRADATION PRODUCTS 0.48 UG/ML (0.00-0.49); INR 0.9 (0.8-1.4); POTASSIUM 3.5 MMOL/L (3.6-5.0); SODIUM 140 MMOL/L (135-145)
[2020-05-13 00:39] LABS: AMYLASE 55 U/L (25-125); CALCIUM 9.3 MG/DL (8.5-10.1)
[2020-05-13 00:41] LABS: GLUCOSE 124 MG/DL (70-105); TOTAL PROTEIN 6.7 GM/DL (6.4-8.2)
[2020-05-13 00:42] LABS: BILIRUBIN,TOTAL 0.2 MG/DL (0.1-1.0); CARBON DIOXIDE 28 MMOL/L (21-32)
[2020-05-13 00:44] LABS: ALKALINE PHOSPHATASE 127 U/L (40-136); CREATININE SERUM 0.58 MG/DL (0.60-1.30); GFR ESTIMATED > 60
[2020-05-13 00:45] LABS: BUN/CREATININE RATIO 17
[2020-05-13 00:47] LABS: ALANINE AMINOTRANSFERASE 16 U/L (0-55); MAGNESIUM 1.7 MG/DL (1.6-2.4)
[2020-05-13 00:48] LABS: BILIRUBIN,URINE 1+ (NEGATIVE)
[2020-05-13 00:48] LABS: CREATINE KINASE 30 U/L (29-168); LIPASE 12 U/L (8-78)
[2020-05-13 00:49] LABS: BACTERIA,URINE TRACE /HPF
[2020-05-13 00:56] LABS: CREATINE KINASE MB 1.1 NG/ML (<6.6)
[2020-05-13 01:15] LABS: ERYTHROCYTE SEDIMENTATION RATE 20 MM/HR (0-30)
[2020-05-13] MEDS ORDERED: DOXYCYCLINE 100 MG (VIBRAMYCIN) TABLET PO SCH (01:30)
[2020-05-13] MEDS ORDERED: DOXY100T2 PO (01:35)
[2020-05-13] MEDS ORDERED: DEXA6TAB6 PO (01:35)
[2020-05-13] MEDS ORDERED: BENZ100C18 PO (01:35)
[2020-05-13 01:45] VITALS: BP 136/84
[2020-05-13 02:08] LABS: AMPHETAMINE SCREEN, URINE POSITIVE (NEGATIVE); BARBITURATE SCREEN URINE NEGATIVE (NEGATIVE); BENZODIAZEPINES SCREEN URINE POSITIVE (NEGATIVE); CANNABINOID SCREEN, URINE POSITIVE (NEGATIVE); COCAINE SCREEN URINE NEGATIVE (NEGATIVE); METHADONE STAT NEGATIVE (NEGATIVE); METHAMPHETAMINE SCREEN URINE S POSITIVE (NEGATIVE); OPIATE SCREEN URINE NEGATIVE (NEGATIVE); OXYCODONE STAT NEGATIVE (NEGATIVE); PROPOXYPHENE STAT NEGATIVE (NEGATIVE); TRICYCLIC ANTIDEPRESSANTS SCRE NEGATIVE (NEGATIVE)
--- NOTE | 2020-05-13 07:07 | Diagnostic Imaging Report ---
INDICATION: Cough and chest pain Heart size and pulmonary vascularity are within normal limits. There is air trapping in the upper lobes bilaterally. Prominent interstitial markings are seen throughout the lungs without evidence of consolidation. There is predominantly apical pleural thickening. Overall, these findings are similar to the previous examination. IMPRESSION: Findings remain compatible with extensive COPD. No definite acute abnormality or adverse change is appreciated. Dictated by: Dictated on workstation # [id number]
[2020-05-13] MEDS ORDERED: ADVAIR HFA 115/21 MCG INHALER 8 GM IH ONE (08:00)
[2020-05-13] MEDS ORDERED: ALBUTEROL/IPRATROP (COMBIVENT RESPIMAT) 4 GM INHALER IH ONE (09:00)
--- NOTE | 2020-05-14 08:39 | NUR ---
MELISSA FROM [place] CALLED ABOUT BLOOD CULTURE DR FLOREZ LOOKED AT REPORT AND CALLED TO CONTAMINATED [facility] IN[facility]
== END 2020-05-13 01:45 | disposition home or self-care (01) ==
LOC: EDUNIT# 23:21 → ER 23:24
DX: R07.89 Other chest pain (principal); J44.9 Chronic obstructive pulmonary disease, unspecified; I10 Essential (primary) hypertension; F19.90 Other psychoactive substance use, unspecified, uncomplicated; F41.9 Anxiety disorder, unspecified; E03.9 Hypothyroidism, unspecified; F17.210 Nicotine dependence, cigarettes, uncomplicated; Z80.1 Family history of malignant neoplasm of trachea, bronchus and lung; Z20.828 Contact with and (suspected) exposure to other viral communicable diseases; Z80.41 Family history of malignant neoplasm of ovary; Z85.3 Personal history of malignant neoplasm of breast; Z85.79 Personal history of other malignant neoplasms of lymphoid, hematopoietic and related tissues; Z88.5 Allergy status to narcotic agent; Z79.890 Hormone replacement therapy; Z79.52 Long term (current) use of systemic steroids
CPT/HCPCS: 71045; 80053; 80306; 81000; 82150; 82550; 82553; 83615; 83690; 83735; 83874; 83880; 84145; 84484; 85025; 85379; 85610; 85652; 85730; 86141; 87040; 87804; 93005; 93041; 99284; G0480; U0002; 36415; 80320; 87635

== ENCOUNTER 2020-07-18 14:04 | Inpatient (IN) | payer MEDICARE ==
[~2020-07-18] VITALS: Ht 152 cm; Wt 59.5 kg
[~2020-07-18 14:04] MED LIST changes: +DEXA6TAB6 PO; +DOXY100T2 PO; -LISI-552 PO; +LISI20TA26 PO; +MONT10TA32 PO; -MONT10TA97 PO
[2020-07-18] MEDS ORDERED: RT-ALBUTEROL/IPRATROPIUM 3 ML (DUONEB) VIAL INH ONE (14:15)
[2020-07-18] MEDS ORDERED: methylPREDNISolone 125 MG (Solu-MEDROL) VIAL IVP ONE (14:15)
--- NOTE | 2020-07-18 14:18 | ED Respiratory ---
General Stated Complaint: SOB/HX COPD Source: patient Exam Limitations: no limitations History of Present Illness Date Seen by Provider: Jul 18, 2020 Time Seen by Provider: 14:13 Initial Comments This is a 64-year-old female with a history of COPD who presents to the ER with complaints of increasing shortness of air and chest tightness. States it feels like she is having an exacerbation of her COPD. Reports symptoms started yesterday however became increasingly worse this morning. She took her daily inhalers and albuterol treatment at 9:00 this a.m. with some improvement. However, throughout the afternoon her symptoms progressively worsened and she sought ED evaluation at that time. She denies fevers, chills, nausea, vomiting, abdominal pain. Does report some tightness in her chest, that started when her respiratory symptoms began. Reports chronic cough that has increased from her norm. States she was hospitalized last in April for COPD exacerbation. Current everyday smoker, however states she has decreased from pack per day down to 1 to 2 cigarettes/day. No Covid exposure, no ill contacts. Timing/Duration: this morning Severity: moderate Prior Episodes/Possible Cause: occasional episodes Allergies and Home Medications Allergies Coded Allergies: oxycodone HCl (Verified Adverse Reaction, Severe, BLACK OUT, 01/15/19) morphine (Verified Adverse Reaction, Intermediate, Blackout, 01/15/19) Home Medications Albuterol Sulfate 18 Gm Hfa.aer.ad, 2 PUFF INH Q4H PRN for SHORTNESS OF BREATH, (Reported) Albuterol Sulfate 2.5 Mg/0.5 Ml Vial.neb, 2.5 MG INH Q4H, (Reported) Benzonatate 100 Mg Capsule, 200 MG PO TID Prescribed by: DAWSON ALVARADO on 05/13/20134 Dexamethasone 6 Mg Tablet, 6 MG PO DAILY Prescribed by: DAWSON ALVARADO on 05/13/20134 Doxycycline Hyclate 100 Mg Tablet, 100 MG PO BID Prescribed by: DAWSON ALVARADO on 05/13/20134 Fluticasone/Umeclidin/Vilanter 1 Each Blst.w.dev, 1 PUFF INH DAILY, (Reported) Ipratropium Fisher 0.2 Mg/1 Ml Solution, 0.2 MG IH Q6H PRN for SHORTNESS OF BREATH, (Reported) Levothyroxine Sodium 175 Mcg Tablet, 175 MCG PO DAILY Prescribed by: OLIVA ALMODOVAR on 12/18/191252 Lisinopril 20 Mg Tablet, 20 MG PO DAILY Prescribed by: OLIVA ALMODOVAR on 12/18/191252 Loratadine 10 Mg Tablet, 10 MG PO DAILY, (Reported) Montelukast Sodium 10 Mg Tablet, 10 MG PO HS, (Reported) Prednisone 20 Mg Tab, 20 MG PO DAILY Take 3 tabs x 4 days then 2 tabs x 4 days then 1 tab x 4 days 1/2 x 4 days then Stop Prescribed by: OLIVA ALMODOVAR on 12/18/191252 Patient Home Medication List Home Medication List Reviewed: Yes Review of Systems Review of Systems Constitutional: see HPI EENTM: see HPI Respiratory: see HPI Cardiovascular: see HPI Gastrointestinal: no symptoms reported Genitourinary: no symptoms reported Musculoskeletal: no symptoms reported Skin: no symptoms reported Psychiatric/Neurological: No Symptoms Reported Hematologic/Lymphatic: No Symptoms Reported Immunological/Allergic: no symptoms reported Past Vthihaj-Eoeqxc-Yejhlm Hx Patient Social History Type Used: Cigarettes 2nd Hand Smoke Exposure: Yes Recent Hopitalizations: No Immunizations Up To Date Tetanus Booster (TDap): Less than 5yrs Date of Pneumonia Vaccine: May 17, 2019 Date of Influenza Vaccine: Feb 12, 2019 Seasonal Allergies Seasonal Allergies: No Past Medical History Surgeries: Yes (BILAT CARPAL TUNNEL;L BREAST LUMPECTOMY; HIATAL HERNIA REPAIR; HAND SURGERY) Abdominal, Appendectomy, Breast, Orthopedic, Tubal Ligation Respiratory: Yes (O2 DEPENDENT AT 2L/NC) Pneumonia, Chronic Bronchitis, COPD Cardiac: Yes (CAROTID ARTERY DISEASE) High Cholesterol, Hypertension, Peripheral Vascular Neurological: No 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: No [employer]MENT[employer] History: Menopausal Sexually Transmitted Disease: No Genitourinary: No Gastrointestinal: Yes (S/P HIATAL HERNIA REPAIR) Gastroesophageal Reflux, Hiatal Hernia Musculoskeletal: Yes (CHRONIC BACK PAIN; RIGHT SHOULDER SURGERY; BILAT CARPAL TUNNEL;HAND SURGERY) Degenerate Disk Disease, Arthritis, Chronic Back Pain Endocrine: Yes Hypothyroidsim HEENT: No Cancer: Yes (L BREAST CA 2003--S/P LUMPECTOMY/CHEMO/RAD-4 MONTHS LATER DEV. NON-H LYMPH) Breast, Lymphoma Did You Recieve Any Treatments: Yes What Type of Treatment Did You: Chemotherapy, Radiation, Surgical Intervention Psychosocial: Yes (POLYSUBSTANCE ABUSE) Anxiety Integumentary: No Blood Disorders: No Family Medical History Neoplasm 19 FATHER (LUNG) 19 MOTHER G8 SISTER (OVARIAN) SOCIAL HISTORY: -ETOH--HISTORY OF ABUSE, CLAIMS NO RECENT USE -DRUGS--LONG HISTORY OF METH USE--DENIES IV USE, STATES SHE SMOKES IT, ALSO THC USE -SMOKES 2-3 PPD SINCE AGE 9 PMH: -LEFT BREAST CANCER 2003--S/P LUMPECTOMY, CHEMO AND RADIATION; 4 MONTHS LATER, DEVELOPED NON-HODGKIN'S LYMPOMA--S/P CHEMOTHERAPY PSH: -BILATERAL CARPAL TUNNEL -HAND SURGERY -RIGHT SHOULDER SURGERY. -HIATAL HERNIA REPAIR -LEFT BREAST LUMPECTOMY -BTL -APPENDECTOMY LONG HISTORY OF EXTREME NON-COMPLIANCE IN ALL ASPECTS OF CARE PT HAS REPEATEDLY REFUSED BIPAP/CPAP AND VENTILATOR/INTUBATION ON PREVIOUS VISITS Physical Exam Vital Signs - First Documented Capillary Refill : Height: 5'2.00" Weight: 117lbs. 0.0oz. [id number]; 22.00 BMI Method:Stated General Appearance: WD/WN, mild distress Eyes: Bilateral Eye Normal Inspection, Bilateral Eye PERRL, Bilateral Eye EOMI HEENT: PERRL/EOMI, normal ENT inspection Neck: full range of motion, normal inspection Respiratory: chest non-tender, respiratory distress, decreased breath sounds, wheezing, expiration, inspiration; No plerual rub; other (incresed work of breathing ) Gastrointestinal: normal bowel sounds, non tender, soft Extremities: normal range of motion, non-tender, normal inspection Neurologic/Psychiatric: no motor/sensory deficits, alert, normal mood/affect, oriented x 3 Skin: normal color, warm/dry Progress/Results/Core Measures Suspected Sepsis SIRS Temperature: Pulse: Respiratory Rate: Laboratory Tests 07/18/20 14:15: White Blood Count 12.3H Blood Pressure / Mean: Laboratory Tests 07/18/20 14:15: Creatinine 0.68, INR Comment 0.9, Platelet Count 337, Total Bilirubin 0.2 Results/Orders Lab Results Laboratory Tests Test 07/18/20 14:15 07/18/20 14:53 Range/Units White Blood Count 12.3 H 4.3-11.0 10^3/uL Red Blood Count 5.36 H 3.80-5.11 10^6/uL Hemoglobin 12.8 11.5-16.0 g/dL Hematocrit 44 35-52 % Mean Corpuscular Volume 82 80-99 fL Mean Corpuscular Hemoglobin 24 L 25-34 pg Mean Corpuscular Hemoglobin Concent 29 L 32-36 g/dL Red Cell Distribution Width 15.7 H 10.0-14.5 % Platelet Count 337 130-400 10^3/uL Mean Platelet Volume 11.0 9.0-12.2 fL Immature Granulocyte % (Auto) 0 % Neutrophils (%) (Auto) 76 H 42-75 % Lymphocytes (%) (Auto) 12 12-44 % Monocytes (%) (Auto) 6 0-12 % Eosinophils (%) (Auto) 6 0-10 % Basophils (%) (Auto) 0 0-10 % Neutrophils # (Auto) 9.3 H 1.8-7.8 10^3/uL Lymphocytes # (Auto) 1.5 1.0-4.0 10^3/uL Monocytes # (Auto) 0.7 0.0-1.0 10^3/uL Eosinophils # (Auto) 0.7 H 0.0-0.3 10^3/uL Basophils # (Auto) 0.0 0.0-0.1 10^3/uL Immature Granulocyte # (Auto) 0.0 0.0-0.1 10^3/uL Prothrombin Time 12.1 L 12.2-14.7 SEC INR Comment 0.9 0.8-1.4 Activated Partial Thromboplast Time 28 24-35 SEC D-Dimer 0.58 H 0.00-0.49 UG/ML Sodium Level 142 135-145 MMOL/L Potassium Level 4.0 3.6-5.0 MMOL/L Chloride Level 102 98-107 MMOL/L Carbon Dioxide Level 27 21-32 MMOL/L Anion Gap 13 5-14 MMOL/L Blood Urea Nitrogen 13 7-18 MG/DL Creatinine 0.68 0.60-1.30 MG/DL Estimat Glomerular Filtration Rate > 60 BUN/Creatinine Ratio 19 Glucose Level 104 70-105 MG/DL Calcium Level 9.6 8.5-10.1 MG/DL Corrected Calcium 9.3 8.5-10.1 MG/DL Magnesium Level 1.5 L 1.6-2.4 MG/DL Total Bilirubin 0.2 0.1-1.0 MG/DL Aspartate Amino Transf (AST/SGOT) 21 5-34 U/L Alanine Aminotransferase (ALT/SGPT) 18 0-55 U/L Alkaline Phosphatase 134 40-136 U/L Myoglobin 40.7 10.0-92.0 NG/ML Troponin I < 0.028 <0.028 NG/ML B-Type Natriuretic Peptide 14.0 <100.0 PG/ML Total Protein 7.4 6.4-8.2 GM/DL Albumin 4.4 3.2-4.5 GM/DL Blood Gas Puncture Site LT WRIST Blood Gas Patient Temperature 36.9 Arterial Blood pH 7.38 7.37-7.43 Arterial Blood Partial Pressure CO2 51 H 35-45 MMHG Arterial Blood Partial Pressure O2 56 L 79-93 MMHG Arterial Blood HCO3 29 H 23-27 MMOL/L Arterial Blood Total CO2 30.8 21.0-31.0 MMOL/L Arterial Blood Oxygen Saturation 82 L 94-100 % Arterial Blood Base Excess 4.4 H -2.5-2.5 MMOL/L Robby Test YES-POS Blood Gas Ventilator Setting NO Blood Gas Inspired Oxygen 2.5 L My Orders Orders - YASMANI JIMENEZ [employer] Albuterol/Ipra Inhalation Soln (Duoneb I (07/18/20 14:15) Methylprednisolone Sod Succ (Solu-Medrol (07/18/20 14:15) Cbc With Automated Diff (07/18/20 14:16) Magnesium (07/18/20 14:16) Chest 1 View, Ap/Pa Only (07/18/20 14:16) Ekg Tracing (07/18/20 14:16) Comprehensive Metabolic Panel (07/18/20 14:16) Myoglobin Serum (07/18/20 14:16) Protime With Inr (07/18/20 14:16) Partial Thromboplastin Time (07/18/20 14:16) O2 (07/18/20 14:16) Monitor-Rhythm Ecg Trace Only (07/18/20 14:16) Ed Iv/Invasive Line Start (07/18/20 14:16) BNP (07/18/20 14:16) Troponin I (07/18/20 14:16) Albuterol Pre-Mix Nebs (Rt) (Proventil (07/18/20 14:32) Arterial Blood Gas (07/18/20 14:53) Fibrin Degradation Products (07/18/20 15:04) Drug Screen Stat (Urine) (07/18/20 15:05) Ua Culture If Indicated (07/18/20 15:05) Medications Given in ED Current Medications Medications Dose Ordered Sig/Phani Route Start Time Stop Time Status Last Admin Dose Admin Albuterol/ Ipratropium 3 ml ONCE ONCE INH 07/18/20 14:15 07/18/20 14:16 DC 07/18/20 14:27 3 ML Methylprednisolone Sodium Succinate 125 mg ONCE ONCE IVP 07/18/20 14:15 07/18/20 14:16 DC 07/18/20 14:23 125 MG Vital Signs/I&O 07/18/20 07/18/20 07/18/20 14:08 14:08 14:39 Temp 36.9 Pulse 123 Resp 42 B/P (MAP) 171/128 (142) Pulse Ox 89 94 95 O2 Delivery Nasal Cannula Nasal Cannula Nasal Cannula O2 Flow Rate 2.00 2.50 3.00 Capillary Refill : Progress Note : Progress Note Patient examined upon arrival, noted to have increased work of breathing. She is tachycardic and tachypneic. She normally wears oxygen 2 L via nasal cannula and came in with portable tank. O2 upon arrival was 89%. She was switched over to wall oxygen and her O2 increased to 93%. Upon examination she was noted to have decreased breath sounds and inspiratory/expiratory wheezes. Last albuterol treatment this a.m. Orders placed for DuoNeb and Solu-Medrol 125 mg IV push. Her symptoms are typical of COPD exacerbation. Orders placed for basic labs, EKG, troponin, chest x-ray. After receiving DuoNeb, had minimal improvement. Orders placed for hour-long RT treatment. Patient reexamined and her heart rate down from 117 to 105, reports feeling mildly improved. Resting comfortably, in no acute distress. Towards the end of her treatment reported some improvement, however reports persistent amount of tightness. Labs reviewed, ABG shows compensated respiratory acidosis, slight elevation in WBC-12.3. Chest x-ray shows no acute pulmonary process. Case was discussed with Dr. Borrero and agreeable with observation admission to medical unit. Reviewed plan of care with patient and she is agreeable with plan. Plan: Admit to medical surgical unit. VSS. COPD exacerbation -Duoneb and hour long RT treatment provided in ED. -Solumedrol 125mg Iv in ED -Supplemental oxygen at 2 L/min via nasal cannula. -To receive first dose of azithromycin 500 mg p.o. in ED, will continue to 50 mg p.o. daily x4 days. -Resume home medication -Albuterol nebulizations every 4 hours as needed wheezing. -DuoNeb 4 times daily. We will continue home medications. -Lovenox 30 mg subcut every 24 hours for VTE prophylaxis. -Initiate RT MAT protocol ECG Initial ECG Impression Date: Jul 18, 2020 Initial ECG Impression Time: 14:23 Initial ECG Rate: 117 Initial ECG Rhythm: S.Tach Initial ECG Impression: Nonspecific Changes Diagnostic Imaging Diagonstic Imaging: Xray Plain Films/CT/US/NM/MRI: chest Comments NAME: MICHAEL MARK [facility] REC#: [id number] PT STATUS: REG ER : 1955 PHYSICIAN: YASMANI JIMENEZ APRN ADMIT DATE: 07/18/20/ER Draft Date of Exam:07/18/20 CHEST 1 VIEW, AP/PA ONLY Portable erect AP chest at 2:40. Indication: Chest pain The heart size is within normal limits and stable when compared to 05/12/2020. The chronic pulmonary changes evident on the prior study are again visualized and no different. There is still no sign of failure, pneumonia or pleural effusion to indicate an acute abnormality. The mediastinum is not widened. The osseous structures are intact. Healed rib fractures are again seen on the right. Impression: There is chronic pulmonary disease but there is no sign of an acute cardiopulmonary abnormality. Dictated on workstation # [id number] Dict: 07/18/20 1445 Trans: 07/18/20 1456 CV [id number] Interpreted by: ANNIE PRASAD MD Electronically signed by: Departure Communication (Admissions) Time/Spoke to Admitting Phy: 15:[address] Borrero at this time. Impression Primary Impression: COPD exacerbation Disposition: ADMITTED INPATIENT Condition: Stable Admissions Decision to Admit Reason: Admit from ER (General) Decision to Admit/Date: Jul 18, 2020 Time/Decision to Admit Time: 15:30 Departure-Patient Inst. Referrals: [facility] (PCP) Primary Care Physician OUMOU DELGADO (Family) Primary Care Physician YASMANI JIMENEZ APRN Jul 18, 2020 14:17
[2020-07-18 14:32] LABS: BASOPHILS % (AUTO) 0 % (0-10); EOSINOPHILS # (AUTO) 0.7 10^3/uL (0.0-0.3); EOSINOPHILS % (AUTO) 6 % (0-10); HEMATOCRIT 44 % (35-52); HEMOGLOBIN 12.8 g/dL (11.5-16.0); LYMPHOCYTES # (AUTO) 1.5 10^3/uL (1.0-4.0); LYMPHOCYTES % (AUTO) 12 % (12-44); MEAN CORPUSCULAR HEMOGLOBIN 24 pg (25-34); MEAN CORPUSCULAR HGB CONC 29 g/dL (32-36); MEAN CORPUSCULAR VOLUME 82 fL (80-99); MONOCYTES # (AUTO) 0.7 10^3/uL (0.0-1.0); MONOCYTES % (AUTO) 6 % (0-12); NEUTROPHILS # (AUTO) 9.3 10^3/uL (1.8-7.8); NEUTROPHILS % (AUTO) 76 % (42-75); PLATELET COUNT 337 10^3/uL (130-400); WHITE BLOOD COUNT 12.3 10^3/uL (4.3-11.0)
[2020-07-18] MEDS ORDERED: RT-ALBUTEROL SULF 2.5 MG/3 ML PRE-MIX VIAL ONE (14:32)
[2020-07-18 14:44] LABS: INR 0.9 (0.8-1.4); PROTHROMBIN TIME PATIENT 12.1 SEC (12.2-14.7)
[2020-07-18 14:54] LABS: ALANINE AMINOTRANSFERASE 18 U/L (0-55); ALBUMIN 4.4 GM/DL (3.2-4.5); ALKALINE PHOSPHATASE 134 U/L (40-136); BILIRUBIN,TOTAL 0.2 MG/DL (0.1-1.0); BUN/CREATININE RATIO 19; CALCIUM 9.6 MG/DL (8.5-10.1); CARBON DIOXIDE 27 MMOL/L (21-32); CHLORIDE 102 MMOL/L (98-107); CREATININE SERUM 0.68 MG/DL (0.60-1.30); GFR ESTIMATED > 60; GLUCOSE 104 MG/DL (70-105); MAGNESIUM 1.5 MG/DL (1.6-2.4); SODIUM 142 MMOL/L (135-145); TOTAL PROTEIN 7.4 GM/DL (6.4-8.2)
--- NOTE | 2020-07-18 14:56 | Diagnostic Imaging Report ---
Portable erect AP chest at 2:40. Indication: Chest pain The heart size is within normal limits and stable when compared to 05/12/2020. The chronic pulmonary changes evident on the prior study are again visualized and no different. There is still no sign of failure, pneumonia or pleural effusion to indicate an acute abnormality. The mediastinum is not widened. The osseous structures are intact. Healed rib fractures are again seen on the right. Impression: There is chronic pulmonary disease but there is no sign of an acute cardiopulmonary abnormality. Dictated by: Dictated on workstation # [id number]
[2020-07-18 15:00] LABS: ABG BASE EXCESS 4.4 MMOL/L (-2.5-2.5); ABG OXYGEN SATURATION 82 % (94-100); ABG PCO2 51 MMHG (35-45); ABG PH 7.38 (7.37-7.43); ABG PO2 56 MMHG (79-93); ABG TCO2 30.8 MMOL/L (21.0-31.0)
[2020-07-18 15:01] LABS: ALLENS TEST YES-POS; INSPIRED O2 2.5 L; PATIENT TEMP 36.9; VENTILATOR NO
[2020-07-18] MEDS ORDERED: AZITHROMYCIN 250 MG TAB (ZITHROMAX) PO ONE (16:00)
[2020-07-18 17:00] VITALS: BP 109/65
[2020-07-18] MEDS ORDERED: RT-ALBUTEROL SULF 2.5 MG/3 ML PRE-MIX VIAL INH PRN ×2 (17:00→17:15)
[2020-07-18 17:10] VITALS: BP 157/75
[2020-07-18] MEDS ORDERED: ACETAMINOPHEN 325 MG TABLET PO PRN (17:15)
[2020-07-18] MEDS ORDERED: ONDANSETRON 4 MG/2 ML (SDV) Z0FRAN IV PRN (17:15)
[2020-07-18 17:22] LABS: BILIRUBIN,URINE NEGATIVE (NEGATIVE); CLARITY,URINE CLEAR; COLOR,URINE YELLOW; GLUCOSE, URINE (UA) NEGATIVE (NEGATIVE); KETONES,URINE NEGATIVE (NEGATIVE); LEUKOCYTE ESTERASE ,URINE NEGATIVE (NEGATIVE); NITRITE,URINE NEGATIVE (NEGATIVE); PROTEIN,URINE 1+ (NEGATIVE)
[2020-07-18 17:29] LABS: AMORPHOUS SEDIMENT,UR FEW AMOR URATES /LPF; BACTERIA,URINE TRACE /HPF; HYALINE CASTS, URINE RARE /LPF; SQUAMOUS EPITHELIAL CELL,UR 0-2 /HPF; WBC,URINE RARE /HPF
[2020-07-18] MEDS: ENOXAPARIN 30 MG/0.3 ML (LOVENOX) SYR SC SCH (17:29)
[2020-07-18] MEDS: NS IV 1000 ML 1,000 ML IV SCH (17:30)
[2020-07-18 17:33] LABS: AMPHETAMINE SCREEN, URINE POSITIVE (NEGATIVE); BARBITURATE SCREEN URINE NEGATIVE (NEGATIVE); BENZODIAZEPINES SCREEN URINE NEGATIVE (NEGATIVE); CANNABINOID SCREEN, URINE NEGATIVE (NEGATIVE); COCAINE SCREEN URINE NEGATIVE (NEGATIVE); METHADONE STAT NEGATIVE (NEGATIVE); METHAMPHETAMINE SCREEN URINE S POSITIVE (NEGATIVE); OPIATE SCREEN URINE NEGATIVE (NEGATIVE); OXYCODONE STAT NEGATIVE (NEGATIVE); PROPOXYPHENE STAT NEGATIVE (NEGATIVE); TRICYCLIC ANTIDEPRESSANTS SCRE NEGATIVE (NEGATIVE)
[2020-07-18] MEDS: RT-ALBUTEROL/IPRATROPIUM 3 ML (DUONEB) VIAL INH SCH ×2 (18:41→22:19)
[2020-07-18] MEDS ORDERED: RT-ALBUTEROL/IPRATROPIUM 3 ML (DUONEB) VIAL INH SCH (19:00)
[2020-07-18] MEDS: methylPREDNISolone 125 MG (Solu-MEDROL) VIAL IV SCH (20:01)
[2020-07-18 20:06] VITALS: BP 135/66
[2020-07-18 23:22] VITALS: BP 129/66
[2020-07-19] MEDS: RT-ALBUTEROL/IPRATROPIUM 3 ML (DUONEB) VIAL INH SCH ×6 (02:28→22:24)
[2020-07-19] MEDS: methylPREDNISolone 125 MG (Solu-MEDROL) VIAL IV SCH ×4 (03:33→19:45)
[2020-07-19 03:34] VITALS: BP 113/58
[2020-07-19] MEDS: NS IV 1000 ML 1,000 ML IV SCH ×2 (03:34→12:57)
[2020-07-19 05:31] LABS: BASOPHILS % (AUTO) 0 % (0-10); EOSINOPHILS % (AUTO) 0 % (0-10); HEMATOCRIT 35 % (35-52); HEMOGLOBIN 10.4 g/dL (11.5-16.0); LYMPHOCYTES # (AUTO) 0.4 10^3/uL (1.0-4.0); LYMPHOCYTES % (AUTO) 14 % (12-44); MEAN CORPUSCULAR HEMOGLOBIN 24 pg (25-34); MEAN CORPUSCULAR HGB CONC 30 g/dL (32-36); MEAN CORPUSCULAR VOLUME 82 fL (80-99); MEAN PLATELET VOLUME 10.6 fL (9.0-12.2); MONOCYTES % (AUTO) 1 % (0-12); NEUTROPHILS # (AUTO) 2.6 10^3/uL (1.8-7.8); NEUTROPHILS % (AUTO) 85 % (42-75); PLATELET COUNT 241 10^3/uL (130-400); WHITE BLOOD COUNT 3.1 10^3/uL (4.3-11.0)
[2020-07-19 05:41] LABS: ALBUMIN 3.6 GM/DL (3.2-4.5); CHLORIDE 110 MMOL/L (98-107); POTASSIUM 3.8 MMOL/L (3.6-5.0); SODIUM 141 MMOL/L (135-145)
[2020-07-19 05:42] LABS: CALCIUM 8.6 MG/DL (8.5-10.1)
[2020-07-19 05:43] LABS: GLUCOSE 142 MG/DL (70-105)
[2020-07-19 05:44] LABS: TOTAL PROTEIN 5.9 GM/DL (6.4-8.2)
[2020-07-19 05:45] LABS: BILIRUBIN,TOTAL 0.2 MG/DL (0.1-1.0); CARBON DIOXIDE 22 MMOL/L (21-32)
[2020-07-19 05:47] LABS: ALKALINE PHOSPHATASE 97 U/L (40-136); CREATININE SERUM 0.59 MG/DL (0.60-1.30); GFR ESTIMATED > 60
[2020-07-19 05:48] LABS: BUN/CREATININE RATIO 19
[2020-07-19 05:50] LABS: ALANINE AMINOTRANSFERASE 12 U/L (0-55)
[2020-07-19 07:51] VITALS: BP 131/70
[2020-07-19 11:30] VITALS: BP 124/68
--- NOTE | 2020-07-19 11:41 | History & Physical-Hospitalist ---
History of Present Illness HPI/Chief Complaint Patient presents with increased shortness of breath and dyspnea on exertion. She has multiple previous admissions for exacerbations of COPD with continued tobaccoism and methamphetamine use. The time of my interview this morning she says she feels somewhat worse. She remains very dyspneic with talking. Source: patient, old records Exam Limitations: no limitations Date Seen 07/19/20 Time Seen by a Provider: 10:15 Attending Physician Britt Borrero MD [facility] Referring Physician Date of Admission Jul 18, 2020 at 15:52 Home Medications & Allergies Home Medications Reviewed patient Home Medication Reconciliation performed by pharmacy medication reconciliations insulator technician and/or nursing. Patients Allergies have been reviewed. Allergies Allergies Coded Allergies oxycodone HCl (Verified Adverse Reaction, Severe, BLACK OUT, 07/18/20) morphine (Verified Adverse Reaction, Intermediate, Blackout, 07/18/20) Past Lgatvbx-Ctozsi-Znxgta Hx Past Med/Social Hx: Reviewed Nursing Past Med/Soc Hx Patient Social History Marrital Status: single Employed/Student: retired Alcohol Use: Denies Use Recreational Drug Use: No Drug of Choice: denies Smoking Status: Current Everyday Smoker Type Used: Cigarettes 2nd Hand Smoke Exposure: Yes Recent Foreign Travel: No Contact w/other who traveled: No Recent Hopitalizations: No Recent Infectious Disease Expo: No Immunizations Up To Date Tetanus Booster (TDap): Less than 5yrs Date of Pneumonia Vaccine: May 17, 2019 Date of Influenza Vaccine: Feb 13, 2020 Seasonal Allergies Seasonal Allergies: No Past Medical History Surgeries: Abdominal, Appendectomy, Breast, Orthopedic, Tubal Ligation Respiratory: COPD, Emphysema, Pneumonia Cardiac: High Cholesterol, Hypertension, Peripheral Vascular 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: No Sexually Transmitted Disease: No Menopausal Gastrointestinal: Gastroesophageal Reflux, Hiatal Hernia Musculoskeletal: Degenerate Disk Disease, Arthritis, Chronic Back Pain Endocrine: Hypothyroidsim Cancer: Breast, Lymphoma Did You Recieve Any Treatments: Yes What Type of Treatment Did You: Chemotherapy, Radiation, Surgical Intervention Psychosocial: Anxiety History of Blood Disorders: No Family History Neoplasm 19 FATHER (LUNG) 19 MOTHER G8 SISTER (OVARIAN) SOCIAL HISTORY: -ETOH--HISTORY OF ABUSE, CLAIMS NO RECENT USE -DRUGS--LONG HISTORY OF METH USE--DENIES IV USE, STATES SHE SMOKES IT, ALSO THC USE -SMOKES 2-3 PPD SINCE AGE 9 PMH: -LEFT BREAST CANCER 2003--S/P LUMPECTOMY, CHEMO AND RADIATION; 4 MONTHS LATER, DEVELOPED NON-HODGKIN'S LYMPOMA--S/P CHEMOTHERAPY PSH: -BILATERAL CARPAL TUNNEL -HAND SURGERY -RIGHT SHOULDER SURGERY. -HIATAL HERNIA REPAIR -LEFT BREAST LUMPECTOMY -BTL -APPENDECTOMY LONG HISTORY OF EXTREME NON-COMPLIANCE IN ALL ASPECTS OF CARE PT HAS REPEATEDLY REFUSED BIPAP/CPAP AND VENTILATOR/INTUBATION ON PREVIOUS VISITS Review of Systems Constitutional: see HPI EENTM: no symptoms reported Respiratory: dyspnea on exertion, short of breath, wheezing Cardiovascular: no symptoms reported Gastrointestinal: no symptoms reported Genitourinary: no symptoms reported Psychiatric/Neurological: Anxiety Physical Exam Physical Exam Vital Signs Vital Signs - First Documented Capillary Refill : Less Than 3 Seconds Height, Weight, BMI Height: 5'2.00" Weight: 117lbs. 0.0oz. 53.415499dz; 19.47 BMI Method:Stated General Appearance: Chronically ill Neck: Normal Inspection Respiratory: Decreased Breath Sounds, Rales, Wheezing Cardiovascular: Tachycardia Gastrointestinal: Normal Bowel Sounds, Soft Extremity: No Pedal Edema Results Results/Procedures Labs Laboratory Tests 07/18/20 14:15 07/19/20 05:22 Patient resulted labs reviewed. Imaging: Reviewed Imaging Report Assessment/Plan Admission Diagnosis Exacerbation of COPD Emphysema History of cancer of the breast remote no evidence of disease Tobaccoism not curtailed History of methamphetamine use with urine drug screen positive for meth-denies recent use Leukopenia Hypomagnesemia-replace Hypertension restart lisinopril Hypothyroidism restart thyroid History depression and anxiety start Effexor Admission Status: Inpatient Order (span 2 midnights) Reason for Inpatient Admission: Historically is slow to reverse and has multiple comorbidities Copy Copies To 1: [facility]/BRITT GODFREY MD Jul 19, 2020 11:41
[2020-07-19] MEDS: VENlafaxine XR 75 MG (EFFEXOR XR) CAP PO SCH (12:57)
[2020-07-19] MEDS: LEVOTHYROXINE 100 MCG (LEVOTHROID) TAB PO SCH (12:57)
[2020-07-19] MEDS: LEVOTHYROXINE 75 MCG (LEVOTHROID) TABLET PO SCH (12:57)
[2020-07-19] MEDS: AZITHROMYCIN 250 MG TAB (ZITHROMAX) PO SCH (12:57)
[2020-07-19] MEDS: lisINopril 20 MG (PRINIVIL) TABLET PO SCH (12:58)
[2020-07-19] MEDS: ENOXAPARIN 30 MG/0.3 ML (LOVENOX) SYR SC SCH (16:17)
[2020-07-19 16:19] VITALS: BP 129/71
[2020-07-19 20:31] VITALS: BP 138/74
[2020-07-19 23:09] VITALS: BP 142/70
[2020-07-20] MEDS: RT-ALBUTEROL/IPRATROPIUM 3 ML (DUONEB) VIAL INH SCH ×6 (02:38→21:56)
[2020-07-20] MEDS: methylPREDNISolone 125 MG (Solu-MEDROL) VIAL IV SCH ×4 (02:51→20:55)
[2020-07-20] MEDS: NS IV 1000 ML 1,000 ML IV SCH (02:52)
[2020-07-20 03:10] VITALS: BP 140/65
[2020-07-20 05:36] LABS: BASOPHILS % (AUTO) 0 % (0-10); EOSINOPHILS % (AUTO) 0 % (0-10); HEMATOCRIT 33 % (35-52); HEMOGLOBIN 9.8 g/dL (11.5-16.0); LYMPHOCYTES # (AUTO) 0.5 10^3/uL (1.0-4.0); LYMPHOCYTES % (AUTO) 4 % (12-44); MEAN CORPUSCULAR HEMOGLOBIN 24 pg (25-34); MEAN CORPUSCULAR HGB CONC 30 g/dL (32-36); MEAN CORPUSCULAR VOLUME 82 fL (80-99); MEAN PLATELET VOLUME 10.8 fL (9.0-12.2); MONOCYTES # (AUTO) 0.2 10^3/uL (0.0-1.0); MONOCYTES % (AUTO) 1 % (0-12); NEUTROPHILS # (AUTO) 13.3 10^3/uL (1.8-7.8); NEUTROPHILS % (AUTO) 94 % (42-75); PLATELET COUNT 246 10^3/uL (130-400); WHITE BLOOD COUNT 14.1 10^3/uL (4.3-11.0)
[2020-07-20 05:52] LABS: ALBUMIN 3.4 GM/DL (3.2-4.5); CHLORIDE 109 MMOL/L (98-107); POTASSIUM 3.8 MMOL/L (3.6-5.0); SODIUM 140 MMOL/L (135-145)
[2020-07-20 05:53] LABS: CALCIUM 8.7 MG/DL (8.5-10.1)
[2020-07-20 05:54] LABS: GLUCOSE 128 MG/DL (70-105); TOTAL PROTEIN 5.5 GM/DL (6.4-8.2)
[2020-07-20 05:55] LABS: CARBON DIOXIDE 21 MMOL/L (21-32)
[2020-07-20 05:56] LABS: BILIRUBIN,TOTAL 0.2 MG/DL (0.1-1.0)
[2020-07-20 05:58] LABS: ALKALINE PHOSPHATASE 82 U/L (40-136); CREATININE SERUM 0.59 MG/DL (0.60-1.30); GFR ESTIMATED > 60
[2020-07-20 05:59] LABS: BUN/CREATININE RATIO 20
[2020-07-20 06:01] LABS: ALANINE AMINOTRANSFERASE 11 U/L (0-55)
[2020-07-20 06:02] LABS: ANISOCYTOSIS SLIGHT; LYMPHOCYTES % (MANUAL) 6 %; MONOCYTES % (MANUAL) 1 %; NEUTROPHILS % (MANUAL) 93 %; RBC MORPH NORMAL
[2020-07-20] MEDS: LEVOTHYROXINE 75 MCG (LEVOTHROID) TABLET PO SCH (06:16)
[2020-07-20] MEDS: VENlafaxine XR 75 MG (EFFEXOR XR) CAP PO SCH (06:16)
[2020-07-20] MEDS: LEVOTHYROXINE 100 MCG (LEVOTHROID) TAB PO SCH (06:16)
[2020-07-20] MEDS: lisINopril 20 MG (PRINIVIL) TABLET PO SCH (08:04)
[2020-07-20 08:17] VITALS: BP 158/94
[2020-07-20] MEDS ORDERED: ACET325T38 PO (11:19)
[2020-07-20 12:00] VITALS: BP 154/66
--- NOTE | 2020-07-20 12:05 | Progress Note - Hospitalist ---
DISHA VELASQUEZ [facility] 07/20/20 1205: Subjective HPI/CC On Admission Date Seen by Provider: Jul 20, 2020 Time Seen by Provider: 09:45 Patient presents with increased shortness of breath and dyspnea on exertion. She has multiple previous admissions for exacerbations of COPD with continued tobaccoism and methamphetamine use. The time of my interview this morning she says she feels somewhat worse. She remains very dyspneic with talking. Subjective/Events-last exam Patient was alert and sitting up in bed eating beakfast. Her O2 was turned down from 4L to 3L. She feels she is doing better. Still wheezy. She requires 2L at home. She is eating and drinking without issue. No BM. Urinating without issue. Has not been moving around. She denies pain. Denies the following: Cough, Sputum production, SOB, Chest pain, abdominal pain, N/V, F/C, and blood in stool or urine. Overall she is improving. Review of Systems General: No Chills Pulmonary: No Dyspnea, No Cough Cardiovascular: No: Chest Pain Gastrointestinal: No: Nausea, Vomiting, Abdominal Pain Genitourinary: No Dysuria, No Frequency, No Hematuria Objective Exam Vital Signs Vital Signs Date Time Temp Pulse Resp B/P (MAP) Pulse Ox O2 Delivery O2 Flow Rate FiO2 07/20/20 11:26 90 Nasal Cannula 2.00 07/20/20 08:17 36.5 91 20 158/94 (115) Capillary Refill : Less Than 3 Seconds General Appearance: No Apparent Distress, Chronically ill Respiratory: Chest Non Tender, No Accessory Muscle Use, No Respiratory Distress, Wheezing (BL ) Cardiovascular: No Edema, Normal Peripheral Pulses Gastrointestinal: Normal Bowel Sounds, Non Tender, Soft Neurologic/Psychiatric: Alert, Oriented x3 Skin: Normal Color, Warm/Dry Lymphatic: No Adenopathy Results/Procedures Lab Laboratory Tests 07/20/20 05:17 Patient resulted labs reviewed. Imaging: Reviewed Imaging Report Assessment/Plan Assessment and Plan Assess & Plan/Chief Complaint Assessment: 1. Exacerbation of COPD - continue respiratory therapy - contineu to titrate oxygen down to normal at home level 2. Emphysema - chronic 3. History of cancer of the breast remote no evidence of disease - remission - has not followed up since 2003 4. Tobaccoism - smoking cessation 5. History of methamphetamine - UA + - drug cessation 6. Leukopenia - likely 2/2 to steroids 7. Hypomagnesemia - resolved 8. Hypertension - home medication 9. Hypothyroidism - home medication 10.History depression and anxiety - started on effexor Plan 07/20 - order PT - Titrate O2, ordered oxygen evaluation - Continue abx - monitor labs - spoke to patient about getting a primary care physician and smoking cessation - Consider D/C tomorrow BABITA WALDEN DO 07/21/20 0511: Subjective Subjective/Events-last exam Pt doing a lot better Was on 4 liters of oxygen, now 3 liters today Bowels are moving Has two liters of oxygen at home Urinary output is good Will initiate PT and OT to get her up and around Has had multiple exacerbation of COPD in the past Is a meth user Objective Exam General Appearance: No Apparent Distress, WD/WN, Chronically ill Respiratory: No Accessory Muscle Use, No Respiratory Distress, Decreased Breath Sounds, Wheezing (BL ) Cardiovascular: Regular Rate, Rhythm Neurologic/Psychiatric: Alert, Oriented x3 Assessment/Plan Assessment and Plan Assess & Plan/Chief Complaint DC planned for tomorrow Supervisory-Addendum Brief Verification & Attestation Participated in pt care: history, MDM, physical Personally performed: exam, history, MDM, supervision of care Care discussed with: Medical Student Procedures: n/a Results interpretation: Verified all documentation Verification and Attestation of Medical Student E/M Service A medical student performed and documented this service in my presence. I reviewed and verified all information documented by the medical student and made modifications to such information, when appropriate. I personally performed the physical exam and medical decision making. Babita Walden Jul 21, 2020,05:09 DISHA VELASQUEZ [facility] Jul 20, 2020 12:05 BABITA WALDEN DO Jul 21, 2020 05:11
--- NOTE | 2020-07-20 13:35 | Physical Therapy Evaluation ---
PT Evaluation-General Medical Diagnosis Admission Date Jul 19, 2020 at 13:06 Medical Diagnosis: exacerbation COPD Onset Date: Jul 19, 2020 Therapy Diagnosis Therapy Diagnosis: debility Height/Weight Height (Feet): 5 Height (Inches): 2.00 Weight (Pounds): 117 Weight (Ounces): 0.0 Precautions Precautions/Isolations: Standard Precautions Referral Physician: Win Reason for Referral: Evaluation/Treatment Medical History Pertinent Medical History: CAD, COPD, HTN, Hypothroidism, PVD, Smoking Current History ER secondary to SOA Reviewed History: Yes Social History Home: Apartment Current Living Status: Alone Prior Prior Level of Function SCALE: Activities may be completed with or without assistive devices. 2-Kbgsxwnajd-uicsogu completes the activity by him/herself with no assistance fr om a helper. 5-Set-up or Clean-up Assistance-helper sets up or cleans up; patient completes activity. Gardner assists only prior to or following the activity. 4-Supervision or Touching Assistance-helper provides verbal cues and/or touching/steadying and/or contact guard assistance as patient completes activity. Assistance may be provided throughout the activity or intermittently. 3-Partial/Moderate Assistance-helper does LESS THAN HALF the effort. Gardner lifts, holds or supports trunk or limbs, but provides less than half the effort. 2-Substantial/Maximal Assistance-helper does MORE THAN HALF the effort. Gardner lifts or holds trunk or limbs and provides more than half the effort. 5-Ndewjisxu-oxevpl does ALL the effort. Patient does none of the effort to complete the activity. Or, the assistance of 2 or more helpers is required for the patient to complete the activity. If activity was not attempted, code reason: 7-Patient Refused. 9-Not Applicable-not attempted and the patient did not perform the activity before the current illness, exacerbation or injury. 10-Not Attempted due to Environmental Limitations-(lack of equipment, weather restraints, etc.). 88-Not Attempted due to Medical Conditions or Safety Concerns. Bed Mobility: 6 Transfers (B,C,W/C): 6 Gait: 6 Stairs: 6 PT Evaluation-Current Subjective Patient reports fatigue but agrees to PT. Objective Patient Orientation: Normal For Age Attachments: Oxygen (2L NC) ROM/Strength ROM Lower Extremities bilateral LE WFL Strength Lower Extremities 4/5 grossly bilateral LE Integumentary/Posture Integumentary refer to nursing notes Bowel Incontinence: No Bladder Incontinence: No Posture WFL Neuromuscular (Tone, Coordination, Reflexes) grossly intact Sensory Vision: Wears Glasses Hearing: Functional Transfers Roll Left to Right (QC): 6 Sit to Lying (QC): 6 Lying to Sitting/Side of Bed(Q: 6 Sit to Stand (QC): 6 Chair/Psa-oc-Ddshl Xfer(QC): 6 Gait Does the Patient Walk?: Yes Mode of Locomotion: Walk Anticipated Mode of Locomotion: Walk Walk 10 feet (QC): 6 Walk 50 ft with 2 Turns(QC): 6 Walk 150 ft (QC): 6 Walking 10ft/uneven surface-QC: 6 Distance: 500' Gait Assistive Device: None Comments/Gait Description safe and functional with no deviation Balance Sitting Static: Normal Sitting Dynamic: Normal Standing Static: Normal Standing Dynamic: Normal Picking up an Object (QC): 6 Assessment/Needs 64 y.o. female, is currently at independent [facility] with all gross motor skills. No skilled PT indicated at this time. Rehab Potential: Fair PT Plan Treatment/Plan Treatment Plan: Discontinue PT, goals met Treatment Duration: Jul 20, 2020 Frequency: 1 time per week Estimated Hrs Per Day: .25 hour per day Patient and/or Family Agrees t: Yes Discharge Recommendations Therapy Discharge Recommendati: Home & Family Time/GCodes Time In: 1309 Time Out: 1320 Total Billed Treatment Time: 11 Total Billed Treatment 1 visit EVLowC 11 min SALAS ASHTON PT Jul 20, 2020 13:35
[2020-07-20] MEDS: AZITHROMYCIN 250 MG TAB (ZITHROMAX) PO SCH (14:16)
[2020-07-20 15:21] VITALS: BP 177/80
--- NOTE | 2020-07-20 15:22 | Occupational Therapy Eval ---
OT Evaluation-General/PLF Medical Diagnosis Admission Date Jul 19, 2020 at 13:06 Medical Diagnosis: exacerbation COPD Onset Date: Jul 18, 2020 Therapy Diagnosis Therapy Diagnosis: Weakness Height/Weight Height (Feet): 5 Height (Inches): 2.00 Weight (Pounds): 117 Weight (Ounces): 0.0 Precautions Precautions/Isolations: Standard Precautions Weight Bear Status Weight Bearing Restriction: Weight Bearing/Tolerated Referral Physician: Win Referral Reason: Activity Tolerance, Self Care, Evaluation/Treatment, Strengthening/ROM Medical History Pertinent Medical History: CAD, COPD, HTN, Hypothroidism, PVD, Smoking Additional Medical History Emphysema, Cancer, leukopenia, anxiety Reviewed History: Yes Social History Home: Apartment Current Living Status: Alone Entry Into Home: Level Entry ADL-Prior Level of Function SCALE: Activities may be completed with or without assistive devices. 4-Qqnukfcpci-lgwltse completes the activity by him/herself with no assistance from a helper. 5-Set-up or Clean-up Assistance-helper sets up or cleans up; patient completes activity. Waldo assists only prior to or following the activity. 4-Supervision or Touching Assistance-helper provides verbal cues and/or touching/steadying and/or contact guard assistance as patient completes activity. Assistance may be provided throughout the activity or intermittently. 3-Partial/Moderate Assistance-helper does LESS THAN HALF the effort. Waldo lifts, holds or supports trunk or limbs, but provides less than half the effort. 2-Substantial/Maximal Assistance-helper does MORE THAN HALF the effort. Waldo lifts or holds trunk or limbs and provides more than half the effort. 2-Wdskgjkcc-cbizhr does ALL the effort. Patient does none of the effort to complete the activity. Or, the assistance of 2 or more helpers is required for the patient to complete the activity. If activity was not attempted, code reason: 7-Patient Refused. 9-Not Applicable-not attempted and the patient did not perform the activity before the current illness, exacerbation or injury. 10-Not Attempted due to Environmental Limitations-(lack of equipment, weather restraints, etc.). 88-Not Attempted due to Medical Conditions or Safety Concerns. ADL PLOF Comments Pt. states that she lives alone in [place]. She has a granddaughter that comes over to assist with cleaning. However, she completes all other ADLs. She does not use walker or any other assistive device. Self Care: Independent Functional Cognition: Independent DME/Equipment: Shower DME/Equipment Comments Pt. does not have a shower chair. Occupation: Disabled Drive Self: Yes OT Current Status Subjective No pain reported. Pt. verbalizes that she feels tired. Appearance Pt. in bed. Agrees to work with OT. Mental Status/Objective Patient Orientation: Person, Place, Time, Situation Current Upper Extremity ROM WFL Upper Extremity Strength WFL ADL-Treatment Eating (QC): 6 Shower/Bathe Self (QC): 7 (Pt. declines showering or sponge bathing at this time. She states that her lunch is about to come, and she doesnt want to do it at this time.) On/Off Footwear (QC): 6 Toileting Hygiene (QC): 6 (per pt.) Other Treatments Pt. transfers supine-sit independently. She is able to stand and take several steps independently. No dizziness reported or fatigue. Pt. states that she is feeling better, but would like to rest. Pt. declines showering at this time. Reports that she has been going to bathroom with no difficulty. Due to pt's flexibility in putting on slippers and ability to transfer independently, and self reported ability to toilet self, no further OT warranted at this time. Education OT Patient Education: Correct positioning, Modified ADL techniques, Progress toward Goal/Update tx plan, Purpose of tx/functional activities, Reviewed precautions, Rehab process, Transfer techniques Teaching Recipient: Patient Teaching Methods: Demonstration, Discussion Response to Teaching: Verbalize Understanding, Return Demonstration OT Chcf Goals Chcf Goals Time Frame: Jul 20, 2020 Additional Goals: 1-Demonstrate ADL Tasks, 2-Verbalize Understanding 1=Demonstrate adherence to instructed precautions during ADL tasks. 2=Patient will verbalize/demonstrate understanding of assistive devices/modifications for ADL. 3=Patient will improve strength/tolerance for activity to enable patient to perform ADL's. OT Education/Plan Problem List/Assessment Assessment: No Skilled OT Needs ID'd Discharge Recommendations Plan/Recommendations: Discontinue OT Treatment Plan/Plan of Care Plan of Care: OTHER (Discontinue OT) Treatment Duration: Jul 20, 2020 Frequency: 1 time per week Rehab Potential: Fair Time/GCodes Start Time: 11:55 Stop Time: 12:05 Total Time Billed (hr/min): 10 Billed Treatment Time 1, LYNDON TORRES OT Jul 20, 2020 15:22
[2020-07-20] MEDS ORDERED: ENOXAPARIN 40 MG/0.4 ML (LOVENOX) SYR SC SCH (17:00)
[2020-07-20 19:00] VITALS: BP 161/74
[2020-07-21 00:21] VITALS: BP 168/74
[2020-07-21] MEDS: RT-ALBUTEROL/IPRATROPIUM 3 ML (DUONEB) VIAL INH SCH ×3 (01:49→10:44)
[2020-07-21] MEDS: methylPREDNISolone 125 MG (Solu-MEDROL) VIAL IV SCH ×2 (03:13→08:07)
[2020-07-21 05:35] LABS: BASOPHILS % (AUTO) 0 % (0-10); EOSINOPHILS % (AUTO) 0 % (0-10); HEMATOCRIT 36 % (35-52); HEMOGLOBIN 10.9 g/dL (11.5-16.0); LYMPHOCYTES # (AUTO) 0.6 10^3/uL (1.0-4.0); LYMPHOCYTES % (AUTO) 5 % (12-44); MEAN CORPUSCULAR HEMOGLOBIN 24 pg (25-34); MEAN CORPUSCULAR HGB CONC 30 g/dL (32-36); MEAN CORPUSCULAR VOLUME 79 fL (80-99); MEAN PLATELET VOLUME 11.5 fL (9.0-12.2); MONOCYTES # (AUTO) 0.2 10^3/uL (0.0-1.0); MONOCYTES % (AUTO) 2 % (0-12); NEUTROPHILS # (AUTO) 12.2 10^3/uL (1.8-7.8); NEUTROPHILS % (AUTO) 93 % (42-75); PLATELET COUNT 273 10^3/uL (130-400)
[2020-07-21 05:49] LABS: ALBUMIN 3.7 GM/DL (3.2-4.5); CHLORIDE 104 MMOL/L (98-107); POTASSIUM 4.1 MMOL/L (3.6-5.0)
[2020-07-21 05:50] LABS: SODIUM 137 MMOL/L (135-145)
[2020-07-21 05:51] LABS: CALCIUM 8.6 MG/DL (8.5-10.1)
[2020-07-21 05:52] LABS: GLUCOSE 120 MG/DL (70-105)
[2020-07-21 05:53] LABS: CARBON DIOXIDE 24 MMOL/L (21-32)
[2020-07-21 05:54] LABS: BILIRUBIN,TOTAL 0.2 MG/DL (0.1-1.0)
[2020-07-21 05:55] LABS: ALKALINE PHOSPHATASE 82 U/L (40-136)
[2020-07-21 05:56] LABS: GFR ESTIMATED > 60
[2020-07-21 05:57] LABS: BUN/CREATININE RATIO 20
[2020-07-21 05:58] LABS: ALANINE AMINOTRANSFERASE 14 U/L (0-55)
[2020-07-21] MEDS: LEVOTHYROXINE 75 MCG (LEVOTHROID) TABLET PO SCH (06:19)
[2020-07-21] MEDS: LEVOTHYROXINE 100 MCG (LEVOTHROID) TAB PO SCH (06:19)
[2020-07-21] MEDS: VENlafaxine XR 75 MG (EFFEXOR XR) CAP PO SCH (06:20)
[2020-07-21] MEDS: lisINopril 20 MG (PRINIVIL) TABLET PO SCH (08:07)
[2020-07-21] MEDS ORDERED: LISI20TA26 PO (09:48)
[2020-07-21] MEDS ORDERED: VENL75CA93 PO (09:48)
[2020-07-21] MEDS ORDERED: AZIT250T12 PO (09:48)
[2020-07-21] MEDS ORDERED: LEVO175T2 PO (09:48)
[2020-07-21] MEDS ORDERED: PRED10TA22 PO (09:48)
--- NOTE | 2020-07-21 09:48 | History & Physical-Hospitalist ---
History of Present Illness HPI/Chief Complaint Patient presents with increased shortness of breath and dyspnea on exertion. She has multiple previous admissions for exacerbations of COPD with continued tobaccoism and methamphetamine use. The time of my interview this morning she says she feels somewhat worse. She remains very dyspneic with talking. Date Seen 07/21/20 Attending Physician Britt Borrero MD PCP [facility] Referring Physician Date of Admission Jul 19, 2020 at 13:06 Home Medications & Allergies Home Medications Reviewed patient Home Medication Reconciliation performed by pharmacy medication reconciliations windows migration technician and/or nursing. Patients Allergies have been reviewed. Allergies Allergies Coded Allergies oxycodone HCl (Verified Adverse Reaction, Severe, BLACK OUT, 07/18/20) morphine (Verified Adverse Reaction, Intermediate, Blackout, 07/18/20) Past Bglhxdq-Oqidpo-Lyjrzt Hx Past Med/Social Hx: Reviewed Nursing Past Med/Soc Hx Patient Social History Marrital Status: single Employed/Student: retired Alcohol Use: Denies Use Recreational Drug Use: No Drug of Choice: denies Smoking Status: Current Everyday Smoker Type Used: Cigarettes 2nd Hand Smoke Exposure: Yes Recent Foreign Travel: No Contact w/other who traveled: No Recent Hopitalizations: No Recent Infectious Disease Expo: No Immunizations Up To Date Tetanus Booster (TDap): Less than 5yrs Date of Pneumonia Vaccine: May 17, 2019 Date of Influenza Vaccine: Feb 13, 2020 Seasonal Allergies Seasonal Allergies: No Past Medical History Surgeries: Abdominal, Appendectomy, Breast, Orthopedic, Tubal Ligation Respiratory: COPD, Emphysema, Pneumonia Cardiac: High Cholesterol, Hypertension, Peripheral Vascular 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: No Sexually Transmitted Disease: No Menopausal Gastrointestinal: Gastroesophageal Reflux, Hiatal Hernia Musculoskeletal: Degenerate Disk Disease, Arthritis, Chronic Back Pain Endocrine: Hypothyroidsim Cancer: Breast, Lymphoma Did You Recieve Any Treatments: Yes What Type of Treatment Did You: Chemotherapy, Radiation, Surgical Intervention Psychosocial: Anxiety History of Blood Disorders: No Family History Neoplasm 19 FATHER (LUNG) 19 MOTHER G8 SISTER (OVARIAN) SOCIAL HISTORY: -ETOH--HISTORY OF ABUSE, CLAIMS NO RECENT USE -DRUGS--LONG HISTORY OF METH USE--DENIES IV USE, STATES SHE SMOKES IT, ALSO THC USE -SMOKES 2-3 PPD SINCE AGE 9 PMH: -LEFT BREAST CANCER 2003--S/P LUMPECTOMY, CHEMO AND RADIATION; 4 MONTHS LATER, DEVELOPED NON-HODGKIN'S LYMPOMA--S/P CHEMOTHERAPY PSH: -BILATERAL CARPAL TUNNEL -HAND SURGERY -RIGHT SHOULDER SURGERY. -HIATAL HERNIA REPAIR -LEFT BREAST LUMPECTOMY -BTL -APPENDECTOMY LONG HISTORY OF EXTREME NON-COMPLIANCE IN ALL ASPECTS OF CARE PT HAS REPEATEDLY REFUSED BIPAP/CPAP AND VENTILATOR/INTUBATION ON PREVIOUS VISITS Physical Exam Physical Exam Vital Signs Vital Signs - First Documented Capillary Refill : Less Than 3 Seconds Height, Weight, BMI Height: 5'2.00" Weight: 117lbs. 0.0oz. [id number]; 19.47 BMI Method:Stated Results Results/Procedures Labs Laboratory Tests 07/21/20 05:06 Patient resulted labs reviewed. Imaging: Reviewed Imaging Report Assessment/Plan Admission Diagnosis Exacerbation of COPD Emphysema History of cancer of the breast remote no evidence of disease Tobaccoism not curtailed History of methamphetamine use with urine drug screen positive for meth-denies recent use Leukopenia Hypomagnesemia-replace Hypertension restart lisinopril Hypothyroidism restart thyroid History depression and anxiety start Effexor Assessment and Plan DC planned for tomorrow JAGDEEP HAYNES DO Jul 21, 2020 09:48
--- NOTE | 2020-07-21 11:41 | Progress Note ---
DISHA VELASQUEZ [facility] 07/21/20 1141: Progress Note Hospital Course: Oneida is a 64 y/o female that was admitted on 07/18/20 and will be discharged today 07/21. She was admitted for Acute COPD exacerbation. PMH is positive for HTN, Hypothyroidism, COPD with the need for supplemental oxygen at home. While admitted she was under the care of Internal Medicine Dr. Walden and Dr. Borrero. She received RT/PT/OT. Upon admission her labs showed leukocytosis, + meth drug screen and hypomagnesium. CXR indicated chronic pulmonary disease. UA was negative. Physical exam was positive for increased wheezing, non productive cough, increased need of supplemental oxygen. She received respiratory therapy, antibiotics and supplemental oxygen. She is feeling much better and labs have reach a normal or acceptable value. She is back to her baseline at home oxygen level of 2L. She will now require 2L at all times. This was discussed with Oneida and she verbalized understanding. Wheezing and coughing are improved. Patient states "she is ready to go home". She will be discharged today in stable condition. She is to follow all medication and follow up instructions outlined in discharge paper work. The following information is only a summary of the PT admission while at [facility] and is not all inclusive. Please review entire chart for more information. BABITA WALDEN DO 07/22/20 0548: Supervisory-Addendum Brief Verification & Attestation Participated in pt care: history, MDM, physical Personally performed: exam, history, MDM, supervision of care Care discussed with: Medical Student Procedures: n/a Results interpretation: Verified all documentation Verification and Attestation of Medical Student E/M Service A medical student performed and documented this service in my presence. I reviewed and verified all information documented by the medical student and made modifications to such information, when appropriate. I personally performed the physical exam and medical decision making. Babita Walden Jul 22, 2020,05:48 [facility] Jul 21, 2020 11:41 BABITA WALDEN DO Jul 22, 2020 05:48
--- NOTE | 2020-07-21 18:35 | Physician Query Clarification ---
"Physician Query-General Query to Physician: History/Risk factors: COPD, Meth Use, On home O2 Clinical Findings: Admission RR 42, Sa02 89% on 2L, Per nursing assessment: Accessory muscle use and Short of Air at rest Treatment: Increased supplemental 02 up to 4L, hour long Breathing RX in ER, Solumedrol IV, Question: What condition best reflects the above clinical scenario? Please document response in the Progress notes or Discharge Summary. 1. Acute on Chronic Hypoxic Respiratory Failure, present on admission due to COPD exacerbation 2. COPD Exacerbation (as currently documented) 3. Other , with explanation of the clinical findings 4. Clinically undetermined, no explanation for the clinical findings Please remember a lack of response to the above will prompt a phone page by CDI/coding staff In responding to this query, please exercise your independent professional judgment. The purpose of this communication is to more accurately reflect the complexity of your patients condition. The fact that a question is asked does not imply that any particular answer is desired or expected. Thank you for timely response to this clarification. Alysia Mccall, MSN, RN RN Specialist-Clinical Doc Improvement CD -Health Info Mgmt Operations [address] [facility] t: [phone] | f: [phone] If you are unable to reach me at my extension, I may be working from home. Please contact me at [phone] PHYSICIAN RESPONSE: Based on the clinical findings in the record, please respond to the query above on this document as an addendum. Physician Response: Physician Response 1 If you have questions please contact: Cracking Machine Operator: Ext: Thank you for your time and cooperation. Clinical Mobile Game Engineer/Cracking Machine Operator This is a permanent part of the medical record ALYSIA MCCALL Jul 21, 2020 18:35 JAGDEEP HAYNES DO Jul 21, 2020 20:38"
--- NOTE | 2020-07-22 05:50 | Discharge Summary ---
Discharge Summary Hospital Course Was the Problem List Reviewed?: Yes Problems/Dx: (1) COPD exacerbation Status: Acute Hospital Course Date of Admission: Jul 19, 2020 at 13:06 Admission Diagnosis : Family Physician/Provider: Maximiliano Nelson Date of Discharge: 07/22/20 Discharge Diagnosis: AECOPD, Smoker, meth user Hospital Course: Hospital course: Pt had an uneventful three day hospital course after she was admitted for exacerbation of COPD and meth use, she did receive IV steroids, oxygen supplementation and nebulizer treatments with good results, she was approved for two liters of oxygen at home of which she already has but noncompliant but I did recommend she stop using meth and she will have Prednisone taper dose sent into the pharmacy. Labs and Pending Lab Test: Home Meds Active Prednisone 10 Mg Tab.ds.pk 10 Mg PO DAILY Take 6 tabs(60mg)daily,decrease by 1 tab(10MG)daily. Synthroid (Levothyroxine Sodium) 175 Mcg Tablet 175 Mcg PO DAILY Venlafaxine HCl ER (Venlafaxine HCl) 75 Mg Cap.er.24h 150 Mg PO DAILY@0700 Lisinopril 20 Mg Tablet 20 Mg PO DAILY Azithromycin 250 Mg Tablet 250 Mg PO DAILY@1400 Reported Tylenol (Acetaminophen) 325 Mg Tablet 650 Mg PO Q6H PRN Trelegy Ellipta 100-62.5-25 (Fluticasone/Umeclidin/Vilanter) 1 Each Blst.w.dev 1 Puff INH DAILY Ventolin Hfa (Albuterol Sulfate) 18 Gm Hfa.aer.ad 2 Puff INH Q4H PRN Assessment/Pt Instructions [facility] 1 week Discharge Planning: <30 minutes discharge planning Discharge Instructions Discharge Diet: No Restrictions Activity as Tolerated: Yes Discharge Physical Examination Vital Signs Vital Signs Date Time Temp Pulse Resp B/P (MAP) Pulse Ox O2 Delivery O2 Flow Rate FiO2 07/21/20 10:49 07/21/20 10:44 92 Nasal Cannula 2.00 07/21/20 00:21 36.8 90 20 General Appearance: No Apparent Distress, WD/WN, Chronically ill Allergies: Coded Allergies: oxycodone HCl (Verified Adverse Reaction, Severe, BLACK OUT, 07/18/20) morphine (Verified Adverse Reaction, Intermediate, Blackout, 07/18/20) Discharge Summary Date of Admission Jul 19, 2020 at 13:06 Date of Discharge Jul 21, 2020 at 12:55 Discharge Date: Jul 21, 2020 Admission Diagnosis Exacerbation of COPD Emphysema History of cancer of the breast remote no evidence of disease Tobaccoism not curtailed History of methamphetamine use with urine drug screen positive for meth-denies recent use Leukopenia Hypomagnesemia-replace Hypertension restart lisinopril Hypothyroidism restart thyroid History depression and anxiety start Effexor Discharge Diagnosis DC planned for tomorrow JAGDEEP HAYNES DO Jul 22, 2020 05:50
== END 2020-07-21 12:55 | disposition home or self-care (01) | DRG 189 ==
LOC: EDUNIT# 14:04 → ER 14:05 → 4TH 15:52 → OBSVTOIN 07-19 13:06 → 4TH 07-20 09:21
PROVIDERS: ADMIT Internal Medicine; ATTEND Internal Medicine
DX: J96.21 Acute and chronic respiratory failure with hypoxia (principal); C85.90 Non-Hodgkin lymphoma, unspecified, unspecified site; J43.9 Emphysema, unspecified; F17.210 Nicotine dependence, cigarettes, uncomplicated; Z99.81 Dependence on supplemental oxygen; E78.00 Pure hypercholesterolemia, unspecified; I10 Essential (primary) hypertension; K21.9 Gastro-esophageal reflux disease without esophagitis; K44.9 Diaphragmatic hernia without obstruction or gangrene; M19.91 Primary osteoarthritis, unspecified site; M54.9 Dorsalgia, unspecified; E03.9 Hypothyroidism, unspecified; F41.9 Anxiety disorder, unspecified; F15.90 Other stimulant use, unspecified, uncomplicated; Z91.19 Patient's noncompliance with other medical treatment and regimen; E83.42 Hypomagnesemia; F32.9 Major depressive disorder, single episode, unspecified; Z85.3 Personal history of malignant neoplasm of breast; Z88.6 Allergy status to analgesic agent; Z80.1 Family history of malignant neoplasm of trachea, bronchus and lung; Z80.41 Family history of malignant neoplasm of ovary
CPT/HCPCS: 36415; 71045; 80053; 80306; 81000; 82805; 83735; 83874; 83880; 84484; 85007; 85025; 85027; 85379; 85610; 85730; 93005; 93041; 94640; 94760; 94761

== ENCOUNTER → 2020-08-18 | Outpatient (CLI) | payer MEDICARE ==
[~2020-08-18] MED LIST changes: +ACET325T38 PO; +LEVO175T2 PO; +RT-ALBUTEROL SULF 2.5 MG/3 ML PRE-MIX VIAL INH ONE
== END ==
LOC: RT 12:44
PROVIDERS: ATTEND Nurse Practitioner Family
DX: J44.9 Chronic obstructive pulmonary disease, unspecified (principal)
CPT/HCPCS: 94060; 94640; 94726; 94729

== ENCOUNTER 2020-10-15 13:16 | Observation (INO) | payer MEDICARE ==
[~2020-10-15] VITALS: Ht 157.5 cm; Wt 59.9 kg
[~2020-10-15 13:16] MED LIST changes: -RT-ALBUTEROL SULF 2.5 MG/3 ML PRE-MIX VIAL INH ONE
--- NOTE | 2020-10-15 13:42 | ED Respiratory ---
General Stated Complaint: COPD Source: patient Exam Limitations: no limitations History of Present Illness Date Seen by Provider: Oct 15, 2020 Time Seen by Provider: 13:25 Initial Comments Patient is a 64-year-old who presents to the emergency department today with a chief complaint of increasing shortness of breath over the course of the last 12 to 24 hours. Patient states that she is used her nebulizer 3 times since midnight. She states she has been on her oxygen at 2 L for most of the morning. She states she just cannot catch her breath. She has had a little bit of a productive cough but it switched over to a dry nonproductive cough today. She denies any fevers or chills, sore throat runny nose or congestion. She is not on daily steroids. She is a patient of Dr. Samson. Patient denies any chest pain, abdominal pain, nausea, vomiting, diarrhea. No other GI or symptoms reported. No sick contacts. No Covid concerns. She is not Covid vaccinated. All other review of systems reviewed and negative except as stated above. Timing/Duration: yesterday Severity: severe Prior Episodes/Possible Cause: occasional episodes Modifying Factors: Improves With Albuterol Inhaler, Improves With Albuterol Nebulizer Associated Symptoms: cough Allergies and Home Medications Allergies Coded Allergies: oxycodone HCl (Verified Adverse Reaction, Severe, BLACK OUT, 07/18/20) morphine (Verified Adverse Reaction, Intermediate, Blackout, 07/18/20) Home Medications Acetaminophen 325 Mg Tablet, 650 MG PO Q6H PRN for PAIN-MILD (1-4), (Reported) Albuterol Sulfate 18 Gm Hfa.aer.ad, 2 PUFF INH Q4H PRN for SHORTNESS OF BREATH, (Reported) Azithromycin 250 Mg Tablet, 250 MG PO DAILY@1400 Prescribed by: JAGDEEP HAYNES on 07/21/20 0948 Fluticasone/Umeclidin/Vilanter 1 Each Blst.w.dev, 1 PUFF INH DAILY, (Reported) Levothyroxine Sodium 175 Mcg Tablet, 175 MCG PO DAILY Prescribed by: JAGDEEP HAYNES on 07/21/2048 Lisinopril 20 Mg Tablet, 20 MG PO DAILY Prescribed by: JAGDEEP HAYNES on 07/21/20 0948 Prednisone 10 Mg Tab.ds.pk, 10 MG PO DAILY Take 6 tabs(60mg)daily,decrease by 1 tab(10MG)daily. Prescribed by: JAGDEEP HAYNES on 07/21/20 0948 Prednisone 50 Mg Tab, 50 MG PO DAILY Prescribed by: KAREN NOVA on 10/15/20 1421 Venlafaxine HCl 75 Mg Cap.er.24h, 150 MG PO DAILY@0700 Prescribed by: JAGDEEP HAYNES on 07/21/20 0948 Patient Home Medication List Home Medication List Reviewed: Yes Review of Systems Review of Systems Constitutional: see HPI EENTM: no symptoms reported Respiratory: cough, short of breath Cardiovascular: no symptoms reported Gastrointestinal: no symptoms reported Genitourinary: no symptoms reported Musculoskeletal: no symptoms reported Skin: no symptoms reported Psychiatric/Neurological: Anxiety All Other Systems Reviewed Negative Unless Noted: Yes Past Ssnrtui-Egeqwi-Yomirp Hx Patient Social History Drug of Choice: denies Type Used: Cigarettes 2nd Hand Smoke Exposure: Yes Recent Hopitalizations: No Immunizations Up To Date Tetanus Booster (TDap): Less than 5yrs Date of Pneumonia Vaccine: May 17, 2019 Date of Influenza Vaccine: Feb 13, 2020 Seasonal Allergies Seasonal Allergies: No Past Medical History Surgeries: Yes (BILAT CARPAL TUNNEL;L BREAST LUMPECTOMY; HIATAL HERNIA REPAIR; HAND SURGERY) Abdominal, Appendectomy, Breast, Orthopedic, Tubal Ligation Respiratory: Yes (O2 DEPENDENT AT 2L/NC) Pneumonia, Chronic Bronchitis, COPD Cardiac: Yes (CAROTID ARTERY DISEASE) High Cholesterol, Hypertension, Peripheral Vascular Neurological: No 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: No 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 NON-H LYMPH) Breast, Lymphoma Did You Recieve Any Treatments: Yes What Type of Treatment Did You: Chemotherapy, Radiation, Surgical Intervention Psychosocial: Yes (POLYSUBSTANCE ABUSE) Anxiety Integumentary: No Blood Disorders: No Family Medical History Neoplasm 19 FATHER (LUNG) 19 MOTHER G8 SISTER (OVARIAN) SOCIAL HISTORY: -ETOH--HISTORY OF ABUSE, CLAIMS NO RECENT USE -DRUGS--LONG HISTORY OF METH USE--DENIES IV USE, STATES SHE SMOKES IT, ALSO THC USE -SMOKES 2-3 PPD SINCE AGE 9 PMH: -LEFT BREAST CANCER 2003--S/P LUMPECTOMY, CHEMO AND RADIATION; 4 MONTHS LATER, DEVELOPED NON-HODGKIN'S LYMPOMA--S/P CHEMOTHERAPY PSH: -BILATERAL CARPAL TUNNEL -HAND SURGERY -RIGHT SHOULDER SURGERY. -HIATAL HERNIA REPAIR -LEFT BREAST LUMPECTOMY -BTL -APPENDECTOMY LONG HISTORY OF EXTREME NON-COMPLIANCE IN ALL ASPECTS OF CARE PT HAS REPEATEDLY REFUSED BIPAP/CPAP AND VENTILATOR/INTUBATION ON PREVIOUS VISITS Physical Exam Vital Signs - First Documented 10/15/20 13:27 Temp 36.8 Pulse 120 Resp 44 B/P (MAP) 201/119 (146) Pulse Ox 97 O2 Delivery Nasal Cannula O2 Flow Rate 2.00 Capillary Refill : Height: 5'2.00" Weight: 117lbs. 0.0oz. 53.949704vz; 19.47 BMI Method:Stated General Appearance: WD/WN, moderate distress Eyes: Bilateral Eye Normal Inspection Respiratory: accessory muscle use, wheezing (Significant expiratory wheezes noted throughout, tight diminished breath sounds) Cardiovascular: regular rate, rhythm, tachycardia Gastrointestinal: non tender, soft Neurologic/Psychiatric: no motor/sensory deficits, alert, normal mood/affect, oriented x 3 Skin: normal color, warm/dry Progress/Results/Core Measures Suspected Sepsis SIRS Temperature: Pulse: Respiratory Rate: Laboratory Tests 10/15/20 13:40: White Blood Count 7.8 Blood Pressure / Mean: Laboratory Tests 10/15/20 13:40: Creatinine 0.64, Platelet Count 297 Results/Orders Lab Results Laboratory Tests Test 10/15/20 13:40 10/15/20 14:02 Range/Units White Blood Count 7.8 4.3-11.0 10^3/uL Red Blood Count 4.44 3.80-5.11 10^6/uL Hemoglobin 10.2 L 11.5-16.0 g/dL Hematocrit 35 35-52 % Mean Corpuscular Volume 78 L 80-99 fL Mean Corpuscular Hemoglobin 23 L 25-34 pg Mean Corpuscular Hemoglobin Concent 29 L 32-36 g/dL Red Cell Distribution Width 15.8 H 10.0-14.5 % Platelet Count 297 130-400 10^3/uL Mean Platelet Volume 9.7 9.0-12.2 fL Immature Granulocyte % (Auto) 0 % Neutrophils (%) (Auto) 67 42-75 % Lymphocytes (%) (Auto) 18 12-44 % Monocytes (%) (Auto) 5 0-12 % Eosinophils (%) (Auto) 9 0-10 % Basophils (%) (Auto) 0 0-10 % Neutrophils # (Auto) 5.3 1.8-7.8 10^3/uL Lymphocytes # (Auto) 1.4 1.0-4.0 10^3/uL Monocytes # (Auto) 0.4 0.0-1.0 10^3/uL Eosinophils # (Auto) 0.7 H 0.0-0.3 10^3/uL Basophils # (Auto) 0.0 0.0-0.1 10^3/uL Immature Granulocyte # (Auto) 0.0 0.0-0.1 10^3/uL Sodium Level 141 135-145 MMOL/L Potassium Level 3.6 3.6-5.0 MMOL/L Chloride Level 103 98-107 MMOL/L Carbon Dioxide Level 27 21-32 MMOL/L Anion Gap 11 5-14 MMOL/L Blood Urea Nitrogen 10 7-18 MG/DL Creatinine 0.64 0.60-1.30 MG/DL Estimat Glomerular Filtration Rate > 60 BUN/Creatinine Ratio 16 Glucose Level 96 70-105 MG/DL Calcium Level 9.3 8.5-10.1 MG/DL Blood Gas Puncture Site L RADIAL Blood Gas Patient Temperature 96.8 Arterial Blood pH 7.38 7.37-7.43 Arterial Blood Partial Pressure CO2 49 H 35-45 MMHG Arterial Blood Partial Pressure O2 66 L 79-93 MMHG Arterial Blood HCO3 29 H 23-27 MMOL/L Arterial Blood Total CO2 30.2 21.0-31.0 MMOL/L Arterial Blood Oxygen Saturation 94 94-100 % Arterial Blood Base Excess 3.6 H -2.5-2.5 MMOL/L Robby Test YES-POS Blood Gas Ventilator Setting NO Blood Gas Inspired Oxygen 2L My Orders Orders - KAREN NOVA MD Ed Iv/Invasive Line Start (10/15/20 13:36) Chest 1 View, Ap/Pa Only (10/15/20 13:36) Cbc With Automated Diff (10/15/20 13:36) Basic Metabolic Panel (10/15/20 13:36) Albuterol Pre-Mix Nebs (Rt) (Proventil (10/15/20 13:43) Albuterol/Ipra Inhalation Soln (Duoneb I (10/15/20 13:44) Arterial Blood Gas (10/15/20 14:02) Arterial Blood Draw (10/15/20 ) Methylprednisolone Sod Succ (Solu-Medrol (10/15/20 15:15) Medications Given in ED Current Medications Medications Dose Ordered Sig/Phani Route Start Time Stop Time Status Last Admin Dose Admin Albuterol Sulfate 2.5 mg STK-MED ONCE .ROUTE 10/15/20 13:43 10/15/20 13:53 DC 10/15/20 14:09 12.5 MG Albuterol/ Ipratropium 3 ml STK-MED ONCE .ROUTE 10/15/20 13:44 10/15/20 13:54 DC 10/15/20 14:08 3 ML Methylprednisolone Sodium Succinate 125 mg ONCE ONCE IV 10/15/20 15:15 10/15/20 15:16 DC 10/15/20 15:09 125 MG Vital Signs/I&O 10/15/20 10/15/20 10/15/20 13:27 14:10 15:42 Temp 36.8 Pulse 120 114 Resp 44 30 B/P (MAP) 201/119 (146) 197/110 (139) Pulse Ox 97 98 97 O2 Delivery Nasal Cannula Nasal Cannula Nasal Cannula O2 Flow Rate 2.00 2.00 2.00 Capillary Refill : Progress Note : Time: 16:21 Progress Note Patient reevaluated after approximately 30 minutes after she was finished with her hour-long breathing treatment. She sounds absolutely no better. She has inspiratory and expiratory wheezing, increased work of breathing labored speech. Her oxygen saturations are actually pretty good on her 2 L at 96%. I do not believe however she is going to do very well outpatient. Patient has been treated with Solu-Medrol here in the department. Her chest x-ray is clear her labs are unremarkable. Her ABG shows a PO2 of 66 PCO2 of 49. I think she would benefit from short-term observation with steroids and unloo-dre-hjyvo breathing treatments. Patient is comfortable with being admitted. All questions are sought and answered. [address] Haynes who accepts the patient for admission observation to the ICU for tonight. Patient will be a full code. 60 mg Solu-Medrol IV every 6 Diagnostic Imaging Diagonstic Imaging: Xray Plain Films/CT/US/NM/MRI: chest Comments [facility]. [place], [place] NAME: MICHAEL [facility] REC#: [id number] PT STATUS: REG ER : 1955 PHYSICIAN: KAREN NOVA MD ADMIT DATE: 10/15/20/ER Draft Date of Exam:10/15/20 CHEST 1 VIEW, AP/PA ONLY INDICATION: Shortness of breath Portable chest 1:57 PM There are emphysematous changes in the lungs. Heart size and pulmonary vascularity are normal. Lungs are clear. There are no effusions or pneumothoraces. IMPRESSION: COPD. No acute abnormalities. No change compared to 07/18/2020. Dictated on workstation # [id number] Dict: 10/15/20 1358 Trans: 10/15/20 1400 [facility] [id number] Interpreted by: JOY LA MD Electronically signed by: Departure Communication (Admissions) Time/Spoke to Admitting Phy: 16:[address] Haynes who accepts the patient for admission Impression Primary Impression: COPD exacerbation Disposition: ADMITTED INPATIENT Condition: Stable Admissions Decision to Admit Reason: Admit from ER (General) Decision to Admit/Date: Oct 15, 2020 Time/Decision to Admit Time: 16:28 Departure-Patient Inst. Referrals: [facility] (PCP/Family) Primary Care Physician Patient Instructions: COPD Exacerbation, Adult ED Scripts Prednisone (Prednisone) 50 Mg Tab 50 MG PO DAILY for 5 Days, #5 TAB Prov: KAREN NOVA MD 10/15/20 KAREN NOVA MD Oct 15, 2020 13:41
[2020-10-15] MEDS ORDERED: RT-ALBUTEROL SULF 2.5 MG/3 ML PRE-MIX VIAL ONE (13:43)
[2020-10-15] MEDS ORDERED: RT-ALBUTEROL/IPRATROPIUM 3 ML (DUONEB) VIAL ONE (13:44)
[2020-10-15 13:46] LABS: BASOPHILS % (AUTO) 0 % (0-10); EOSINOPHILS # (AUTO) 0.7 10^3/uL (0.0-0.3); EOSINOPHILS % (AUTO) 9 % (0-10); HEMATOCRIT 35 % (35-52); HEMOGLOBIN 10.2 g/dL (11.5-16.0); LYMPHOCYTES # (AUTO) 1.4 10^3/uL (1.0-4.0); LYMPHOCYTES % (AUTO) 18 % (12-44); MEAN CORPUSCULAR HEMOGLOBIN 23 pg (25-34); MEAN CORPUSCULAR HGB CONC 29 g/dL (32-36); MEAN CORPUSCULAR VOLUME 78 fL (80-99); MEAN PLATELET VOLUME 9.7 fL (9.0-12.2); MONOCYTES # (AUTO) 0.4 10^3/uL (0.0-1.0); MONOCYTES % (AUTO) 5 % (0-12); NEUTROPHILS # (AUTO) 5.3 10^3/uL (1.8-7.8); NEUTROPHILS % (AUTO) 67 % (42-75); PLATELET COUNT 297 10^3/uL (130-400); WHITE BLOOD COUNT 7.8 10^3/uL (4.3-11.0)
[2020-10-15 13:57] LABS: CHLORIDE 103 MMOL/L (98-107); POTASSIUM 3.6 MMOL/L (3.6-5.0); SODIUM 141 MMOL/L (135-145)
[2020-10-15 13:58] LABS: CALCIUM 9.3 MG/DL (8.5-10.1); GLUCOSE 96 MG/DL (70-105)
[2020-10-15 14:00] LABS: CARBON DIOXIDE 27 MMOL/L (21-32)
--- NOTE | 2020-10-15 14:00 | Diagnostic Imaging Report ---
INDICATION: Shortness of breath Portable chest 1:57 PM There are emphysematous changes in the lungs. Heart size and pulmonary vascularity are normal. Lungs are clear. There are no effusions or pneumothoraces. IMPRESSION: COPD. No acute abnormalities. No change compared to 07/18/2020. Dictated by: Dictated on workstation # [id number]
[2020-10-15 14:02] LABS: CREATININE SERUM 0.64 MG/DL (0.60-1.30); GFR ESTIMATED > 60
[2020-10-15 14:03] LABS: BUN/CREATININE RATIO 16
[2020-10-15 14:09] LABS: ABG BASE EXCESS 3.6 MMOL/L (-2.5-2.5); ABG OXYGEN SATURATION 94 % (94-100); ABG PCO2 49 MMHG (35-45); ABG PH 7.38 (7.37-7.43); ABG PO2 66 MMHG (79-93); ABG TCO2 30.2 MMOL/L (21.0-31.0)
[2020-10-15 14:12] LABS: ALLENS TEST YES-POS; INSPIRED O2 2L; PATIENT TEMP 96.8; VENTILATOR NO
[2020-10-15] MEDS ORDERED: PRD50T PO (14:21)
[2020-10-15] MEDS ORDERED: methylPREDNISolone 125 MG (Solu-MEDROL) VIAL IV ONE (15:15)
[2020-10-15] MEDS ORDERED: lisINopril 20 MG (PRINIVIL) TABLET PO ONE (16:30)
--- NOTE | 2020-10-15 17:55 | History & Physical-Hospitalist ---
History of Present Illness HPI/Chief Complaint Chief complaint: Shortness of breath History of present illness: This is a 64-year-old white female clinic patient of [facility] who is known to me from prior hospital stays all due to the same thing of acute exacerbation of COPD. She has very end stage COPD who continues to smoke and has had multiple hospital stays throughout the years and she worsens significantly every time she comes in. She has been placed on IV steroids nebulizer treatments oxygen supplementation and may need BiPAP. She appears to be more declined this time. Source: patient, RN/MD Exam Limitations: clinical condition Date Seen 10/15/20 Time Seen by a Provider: 18:30 Attending Physician Babita Walden DO [facility] Referring Physician Date of Admission Oct 15, 2020 at 16:25 Home Medications & Allergies Home Medications Reviewed patient Home Medication Reconciliation performed by pharmacy medication reconciliations permit technician and/or nursing. Patients Allergies have been reviewed. Allergies Allergies Coded Allergies oxycodone HCl (Verified Adverse Reaction, Severe, BLACK OUT, 07/18/20) morphine (Verified Adverse Reaction, Intermediate, Blackout, 07/18/20) Past Dkwiduo-Buktnh-Ulkjom Hx Patient Social History Marrital Status: single Employed/Student: unemployed Smoking Status: Current Everyday Smoker Immunizations Up To Date Date of Influenza Vaccine: Feb 13, 2020 First/Initial COVID19 Vaccinat: NONE Hepatitis B: Yes Date of Pneumonia Vaccine: May 17, 2019 Seasonal Allergies Seasonal Allergies: No Current Status Primary Language: German Past Medical History Surgeries: Abdominal, Appendectomy, Breast, Orthopedic, Tubal Ligation Pneumonia, Chronic Bronchitis, COPD High Cholesterol, Hypertension, Peripheral Vascular 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 COPD 2. tobbaco dependence 3. degenerative disc disease of the lumbar spine 4. osteoarthritis of the hips/hands 5. chronic pain on narcotics 6. hx of breast cancer diagnosed 2004 s/p left lumpectomy 7. hx of Non-Hodgkins lymphoma diagnosed 2004 s/p chemo/radiation -negative PET scan as of 11/2008. -followed by Dr Houston 8. hyperlipidemia 9. anxiety 10. hypothyroidism 11. osteoporosis Past surgical history: 1. left breast lumpectomy 2004 2. appendectomy 3. rotator cuff surgery 2009 4. carpal tunnel surgery 5. tubal ligation 6. hiatal hernia repair Family Medical History Neoplasm 19 FATHER (LUNG) 19 MOTHER G8 SISTER (OVARIAN) SOCIAL HISTORY: -ETOH--HISTORY OF ABUSE, CLAIMS NO RECENT USE -DRUGS--LONG HISTORY OF METH USE--DENIES IV USE, STATES SHE SMOKES IT, ALSO THC USE -SMOKES 2-3 PPD SINCE AGE 9 PMH: -LEFT BREAST CANCER 2003--S/P LUMPECTOMY, CHEMO AND RADIATION; 4 MONTHS LATER, DEVELOPED NON-HODGKIN'S LYMPOMA--S/P CHEMOTHERAPY PSH: -BILATERAL CARPAL TUNNEL -HAND SURGERY -RIGHT SHOULDER SURGERY. -HIATAL HERNIA REPAIR -LEFT BREAST LUMPECTOMY -BTL -APPENDECTOMY LONG HISTORY OF EXTREME NON-COMPLIANCE IN ALL ASPECTS OF CARE PT HAS REPEATEDLY REFUSED BIPAP/CPAP AND VENTILATOR/INTUBATION ON PREVIOUS VISITS Review of Systems Constitutional: see HPI, malaise, weakness Respiratory: dyspnea on exertion, short of breath, wheezing Physical Exam Physical Exam Vital Signs Vital Signs - First Documented 10/15/20 13:27 Temp 36.8 Pulse 120 Resp 44 B/P (MAP) 201/119 (146) Pulse Ox 97 O2 Delivery Nasal Cannula O2 Flow Rate 2.00 Capillary Refill : Less Than 3 Seconds Height, Weight, BMI Height: 5'2.00" Weight: 117lbs. 0.0oz. 53.662221tn; 23.00 BMI Method:Stated General Appearance: Anxious, Chronically ill, Mild Distress, Thin Respiratory: No Respiratory Distress, Accessory Muscle Use, Crackles, Decreased Breath Sounds, Rales, Wheezing Cardiovascular: Regular Rate, Rhythm Neurologic/Psychiatric: Alert, Oriented x3, No Motor/Sensory Deficits, Normal Mood/Affect Results Results/Procedures Labs Laboratory Tests 10/15/20 13:40 Patient resulted labs reviewed. Assessment/Plan Admission Diagnosis Assessment: Acute on chronic hypoxic respiratory failure Acute exacerbation of COPD Smoker Plan: ICU status IV steroids Oxygen Monitor closely BiPAP Admission Status: Observation Diagnosis/Problems Diagnosis/Problems (1) Acute on chronic respiratory failure Status: Acute (2) COPD exacerbation Status: Acute (3) Hypothyroidism Status: Chronic (4) Smoker Status: Acute BABITA WALDEN DO Oct 15, 2020 17:55
[2020-10-15] MEDS ORDERED: guaiFENesin SYRUP 100 MG/5 ML 10 ML (ROBITUSSIN SF) PO PRN (18:30)
[2020-10-15] MEDS ORDERED: CATHETER FLUSH 10 ML SYR IV PRN (18:30)
--- NOTE | 2020-10-15 18:42 | Pulmonary Consultation ---
History of Present Illness History of Present Illness Date Seen by Provider: Oct 15, 2020 Time Seen by Provider: 18:35 Date of Admission Allergies and Home Medications Allergies Coded Allergies: oxycodone HCl (Verified Adverse Reaction, Severe, BLACK OUT, 07/18/20) morphine (Verified Adverse Reaction, Intermediate, Blackout, 07/18/20) Home Medications Acetaminophen 325 Mg Tablet, 650 MG PO Q6H PRN for PAIN-MILD (1-4), (Reported) Albuterol Sulfate 18 Gm Hfa.aer.ad, 2 PUFF INH Q4H PRN for SHORTNESS OF BREATH, (Reported) Azithromycin 250 Mg Tablet, 250 MG PO DAILY@1400 Prescribed by: JAGDEEP HAYNES on 07/21/20 0948 Fluticasone/Umeclidin/Vilanter 1 Each Blst.w.dev, 1 PUFF INH DAILY, (Reported) Levothyroxine Sodium 175 Mcg Tablet, 175 MCG PO DAILY Prescribed by: JAGDEEP HAYNES on 07/21/20 0948 Lisinopril 20 Mg Tablet, 20 MG PO DAILY Prescribed by: JAGDEEP HAYNES on 07/21/20 0948 Prednisone 10 Mg Tab.ds.pk, 10 MG PO DAILY Take 6 tabs(60mg)daily,decrease by 1 tab(10MG)daily. Prescribed by: JAGDEEP HAYNES on 07/21/20 0948 Prednisone 50 Mg Tab, 50 MG PO DAILY Prescribed by: KAREN NOVA on 10/15/20 1421 Venlafaxine HCl 75 Mg Cap.er.24h, 150 MG PO DAILY@0700 Prescribed by: JAGDEEP HAYNES on 07/21/20 0948 Past Medical/Social/Family Hx Patient Social History Tobacco Use?: Yes Tobacco type used: Cigarettes Smoking Status: Current Everyday Smoker Use of E-Cig and/or Vaping dev: No Substance use?: No Alcohol Use?: No Pt stated abuse/neglect: No Immunizations Up To Date Influenza Vaccine Up-to-Date: No; Not Current First/Initial COVID19 Vaccinat: NONE Second COVID19 Vaccination Andrew: NONE Hepatitis B: Yes Date of Pneumonia Vaccine: May 17, 2019 Current Status Advance Directives: No Communicates: Verbally Primary Language: Portuguese Preferred Spoken Language: Portuguese Is interpretation needed?: No Sensory deficits: Vision impairment Past Medical History 1. COPD 2. tobbaco dependence 3. degenerative disc disease of the lumbar spine 4. osteoarthritis of the hips/hands 5. chronic pain on narcotics 6. hx of breast cancer diagnosed 2004 s/p left lumpectomy 7. hx of Non-Hodgkins lymphoma diagnosed 2004 s/p chemo/radiation -negative PET scan as of 11/2008. -followed by Dr Houston 8. hyperlipidemia 9. anxiety 10. hypothyroidism 11. osteoporosis Past surgical history: 1. left breast lumpectomy 2004 2. appendectomy 3. rotator cuff surgery 2009 4. carpal tunnel surgery 5. tubal ligation 6. hiatal hernia repair Family Medical History Family Hx: SOCIAL HISTORY: -ETOH--HISTORY OF ABUSE, CLAIMS NO RECENT USE -DRUGS--LONG HISTORY OF METH USE--DENIES IV USE, STATES SHE SMOKES IT, ALSO THC USE -SMOKES 2-3 PPD SINCE AGE 9 PMH: -LEFT BREAST CANCER 2003--S/P LUMPECTOMY, CHEMO AND RADIATION; 4 MONTHS LATER, DEVELOPED NON-HODGKIN'S LYMPOMA--S/P CHEMOTHERAPY PSH: -BILATERAL CARPAL TUNNEL -HAND SURGERY -RIGHT SHOULDER SURGERY. -HIATAL HERNIA REPAIR -LEFT BREAST LUMPECTOMY -BTL -APPENDECTOMY LONG HISTORY OF EXTREME NON-COMPLIANCE IN ALL ASPECTS OF CARE PT HAS REPEATEDLY REFUSED BIPAP/CPAP AND VENTILATOR/INTUBATION ON PREVIOUS VISITS Review of Systems Constitutional: see HPI Sepsis Event Evaluation Height, Weight, BMI Height: 5'2.00" Weight: 117lbs. 0.0oz. 53.771955lh; 23.90 BMI Method:Stated Exam Exam Vital Signs Date Time Temp Pulse Resp B/P (MAP) Pulse Ox O2 Delivery O2 Flow Rate FiO2 10/15/20 17:32 94 Nasal Cannula 2.00 10/15/20 17:20 107 10/15/20 16:56 36.7 107 26 193/98 97 Nasal Cannula 2.00 10/15/20 15:42 114 30 197/110 (139) 97 Nasal Cannula 2.00 10/15/20 14:10 98 Nasal Cannula 2.00 10/15/20 13:27 36.8 120 44 201/119 (146) 97 Nasal Cannula 2.00 10/15/20 07:10 37.0 110 38 168/115 (132) 94 Nasal Cannula 2.00 Height & Weight Height: 5'2.00" Weight: 117lbs. 0.0oz. 53.609197xt; 23.90 BMI Method:Stated General Appearance: Moderate Distress Capillary Refill: Less Than 3 Seconds Gastrointestinal: non tender, soft Results Lab Laboratory Tests 10/15/20 13:40 Assessment/Plan Assessment/Plan Available chart/ vitals / labs / Images reviewed Video assessment done using teleICU camera Discussed with RN hemodynamically stable, eating dinner RR 30 Drips: Consultants: Hospital course: 10/15/20- to ER withsignificant dyspnea , TX for AECOPD with nebs , steroids , not Covid vaccinated. A/P Acute resp failure with AECOPD - prn NIPPV, steroids nebs - no clear infection - will collect sputum and PCT - follow , start doxy po AECOPD ( baseline COPD with severe airway onbstr FEVI 59% =1.2 L , no resp to br dilators , severe air trapping RV 190 % ) - nebs , Steroids IV H/o chronic pain on narcotics hx of breast cancer diagnosed 2004 s/p left lumpectomy hx of Non-Hodgkins lymphoma diagnosed 2004 s/p chemo/radiation Lines : Jordan: Nutrition: PO DVT proph: lovenox 30 SUP - H2bl as per chart : LONG HISTORY OF EXTREME NON-COMPLIANCE IN ALL ASPECTS OF CARE PT HAS REPEATEDLY REFUSED BIPAP/CPAP AND VENTILATOR/INTUBATION ON PREVIOUS VISITS " - patient is full code now as per RN discussion with patient Plans in collaboration with bedside consultants and IM MDs. Discussed with RN to reach out if any questions or concerns A total of 30 minutes of critical care time was devoted to this patient today, required to treat and/or prevent further deterioration of critical care condition ( as above ) . SILVIANO KEMP MD Oct 15, 2020 18:42
[2020-10-15] MEDS ORDERED: ENOXAPARIN 30 MG/0.3 ML (LOVENOX) SYR SC NR (18:45)
[2020-10-15 18:47] LABS: BILIRUBIN,URINE NEGATIVE (NEGATIVE); CLARITY,URINE CLEAR; COLOR,URINE YELLOW; GLUCOSE, URINE (UA) NEGATIVE (NEGATIVE); KETONES,URINE NEGATIVE (NEGATIVE); LEUKOCYTE ESTERASE ,URINE NEGATIVE (NEGATIVE); NITRITE,URINE NEGATIVE (NEGATIVE); PROTEIN,URINE 1+ (NEGATIVE)
[2020-10-15] MEDS ORDERED: HYDROcodone/APAP 5 MG/325 MG (LORTAB) TAB PO PRN (19:00)
[2020-10-15] MEDS ORDERED: ONDANSETRON 4 MG/2 ML (SDV) Z0FRAN IVP PRN (19:00)
[2020-10-15] MEDS ORDERED: hydrALAZINE (APESOLINE) 20 MG/ML VIAL IV PRN (19:00)
[2020-10-15] MEDS ORDERED: ALPRAZolam 0.25 MG (XANAX) TAB PO PRN (19:00)
[2020-10-15] MEDS ORDERED: MELATONIN 3 MG TABLET PO PRN (19:00)
[2020-10-15] MEDS ORDERED: ACETAMINOPHEN 325 MG TABLET PO PRN (19:00)
[2020-10-15] MEDS ORDERED: CALCIUM CARBONATE 500 MG (TUMS) TAB.CHEW PO PRN (19:00)
[2020-10-15] MEDS ORDERED: guaiFENesin/CODEINE (ROBITUSSIN AC) 10ML UDC PO PRN (19:00)
[2020-10-15] MEDS ORDERED: LORazepam INJ 2 MG/ML (ATIVAN) VIAL IVP PRN (19:00)
[2020-10-15] MEDS ORDERED: ACETAMINOPHEN 500 MG TAB (TYLENOL) PO PRN (19:00)
[2020-10-15] MEDS ORDERED: diphenhydrAMINE 25 MG TAB (BENADRYL) PO PRN (19:00)
[2020-10-15] MEDS: SENNA W/DOCUSATE (SENOKOT S) TABLET PO SCH (19:34)
[2020-10-15] MEDS ORDERED: FAMOTIDINE 20MG/2ML IV (PEPCID) ONE (19:51)
[2020-10-15] MEDS: DOXYCYCLINE 100 MG (VIBRAMYCIN) TABLET PO SCH (19:52)
[2020-10-15] MEDS: FAMOTIDINE 20MG/2ML IV (PEPCID) IVP SCH (19:53)
[2020-10-15] MEDS: CATHETER FLUSH 10 ML SYR IV SCH (19:53)
[2020-10-15] MEDS ORDERED: methylPREDNISolone 125 MG (Solu-MEDROL) VIAL IV SCH (21:00)
[2020-10-15] MEDS: RT-ALBUTEROL/IPRATROPIUM 3 ML (DUONEB) VIAL INH SCH (21:24)
[2020-10-15] MEDS: methylPREDNISolone 40 MG/ML (Solu-MEDROL) VIAL IV SCH (23:19)
[2020-10-16] MEDS: RT-ALBUTEROL/IPRATROPIUM 3 ML (DUONEB) VIAL INH SCH ×6 (02:06→21:14)
[2020-10-16 04:14] LABS: BASOPHILS % (AUTO) 0 % (0-10); EOSINOPHILS % (AUTO) 0 % (0-10); HEMATOCRIT 34 % (35-52); HEMOGLOBIN 10.1 g/dL (11.5-16.0); LYMPHOCYTES # (AUTO) 0.4 10^3/uL (1.0-4.0); LYMPHOCYTES % (AUTO) 13 % (12-44); MEAN CORPUSCULAR HEMOGLOBIN 23 pg (25-34); MEAN CORPUSCULAR HGB CONC 30 g/dL (32-36); MEAN CORPUSCULAR VOLUME 77 fL (80-99); MEAN PLATELET VOLUME 10.5 fL (9.0-12.2); MONOCYTES # (AUTO) 0.1 10^3/uL (0.0-1.0); MONOCYTES % (AUTO) 2 % (0-12); NEUTROPHILS # (AUTO) 2.8 10^3/uL (1.8-7.8); NEUTROPHILS % (AUTO) 85 % (42-75); PLATELET COUNT 285 10^3/uL (130-400); WHITE BLOOD COUNT 3.3 10^3/uL (4.3-11.0)
[2020-10-16 04:27] LABS: CHLORIDE 105 MMOL/L (98-107); POTASSIUM 3.7 MMOL/L (3.6-5.0); SODIUM 142 MMOL/L (135-145)
[2020-10-16 04:28] LABS: CALCIUM 9.5 MG/DL (8.5-10.1)
[2020-10-16 04:29] LABS: GLUCOSE 135 MG/DL (70-105)
[2020-10-16 04:30] LABS: CARBON DIOXIDE 24 MMOL/L (21-32)
[2020-10-16 04:32] LABS: CREATININE SERUM 0.59 MG/DL (0.60-1.30); GFR ESTIMATED > 60; PHOSPHORUS 2.7 MG/DL (2.3-4.7)
[2020-10-16 04:33] LABS: BUN/CREATININE RATIO 20
[2020-10-16] MEDS: methylPREDNISolone 40 MG/ML (Solu-MEDROL) VIAL IV SCH ×3 (06:13→16:52)
[2020-10-16] MEDS: DOXYCYCLINE 100 MG (VIBRAMYCIN) TABLET PO SCH ×2 (06:13→16:34)
--- NOTE | 2020-10-16 06:36 | Progress Note - Hospitalist ---
Subjective HPI/CC On Admission Date Seen by Provider: Oct 16, 2020 Time Seen by Provider: 11:00 Chief complaint: Shortness of breath History of present illness: This is a 64-year-old white female clinic patient of [facility] who is known to me from prior hospital stays all due to the same thing of acute exacerbation of COPD. She has very end stage COPD who continues to smoke and has had multiple hospital stays throughout the years and she worsens significantly every time she comes in. She has been placed on IV steroids nebulizer treatments oxygen supplementation and may need BiPAP. She appears to be more declined this time. Subjective/Events-last exam Much improved On nasal cannula Wheezing continues Transferring to the floor Discontinue the catheter Review of Systems Pulmonary: Dyspnea Objective Exam Vital Signs Vital Signs Date Time Temp Pulse Resp B/P (MAP) Pulse Ox O2 Delivery O2 Flow Rate FiO2 10/17/20 04:48 36.0 95 20 140/88 (105) 93 Nasal Cannula 2.00 Capillary Refill : Less Than 3 Seconds General Appearance: No Apparent Distress, WD/WN, Chronically ill, Thin Respiratory: Decreased Breath Sounds, Wheezing Cardiovascular: Tachycardia Neurologic/Psychiatric: Alert, Oriented x3, No Motor/Sensory Deficits, Normal Mood/Affect Results/Procedures Lab Patient resulted labs reviewed. Assessment/Plan Assessment and Plan Assess & Plan/Chief Complaint Assessment: Acute on chronic hypoxic respiratory failure Acute exacerbation of COPD Smoker Plan: ICU status IV steroids Oxygen Monitor closely BiPAP 10/16/2020: Transfer the floor Discontinue catheter IV steroids Diagnosis/Problems Diagnosis/Problems (1) Acute on chronic respiratory failure Status: Acute (2) COPD exacerbation Status: Acute (3) Hypothyroidism Status: Chronic (4) Smoker Status: Acute JAGDEEP HAYNES DO Oct 16, 2020 06:36
[2020-10-16] MEDS: CATHETER FLUSH 10 ML SYR IV SCH ×3 (06:41→20:07)
[2020-10-16] MEDS: SENNA W/DOCUSATE (SENOKOT S) TABLET PO SCH ×2 (08:26→20:06)
[2020-10-16] MEDS: lisINopril 20 MG (PRINIVIL) TABLET PO SCH (08:27)
[2020-10-16] MEDS: ENOXAPARIN 40 MG/0.4 ML (LOVENOX) SYR SC SCH (08:28)
[2020-10-16] MEDS ORDERED: FAMOTIDINE 20MG/2ML IV (PEPCID) ONE (08:31)
[2020-10-16] MEDS: FAMOTIDINE 20MG/2ML IV (PEPCID) IVP SCH (08:31)
[2020-10-16] MEDS ORDERED: MONT10TA32 PO (10:59)
[2020-10-16] MEDS ORDERED: LORA10TA7 PO (11:08)
--- NOTE | 2020-10-16 11:39 | Pulmonary Progress Note ---
Subjective Date Seen by a Provider: Oct 16, 2020 Time Seen by a Provider: 11:38 Sepsis Event Evaluation Height, Weight, BMI Height: 5'2.00" Weight: 117lbs. 0.0oz. 53.926513sq; 23.90 BMI Method:Stated Exam Exam Vital Signs Date Time Temp Pulse Resp B/P (MAP) Pulse Ox O2 Delivery O2 Flow Rate FiO2 10/16/20 11:00 105 18 135/81 (99) 93 Nasal Cannula 2.00 10/16/20 10:28 92 Nasal Cannula 1.00 10/16/20 10:00 107 19 151/76 (101) 93 Nasal Cannula 2.00 10/16/20 09:00 118 16 151/96 (114) 94 Nasal Cannula 2.00 10/16/20 08:15 36.7 10/16/20 08:00 95 Nasal Cannula 2.00 10/16/20 08:00 112 23 141/94 (110) 94 Nasal Cannula 2.00 10/16/20 07:00 106 18 157/87 (110) 91 Nasal Cannula 2.00 10/16/20 07:00 111 10/16/20 06:26 94 Nasal Cannula 2.00 10/16/20 06:00 104 15 156/91 (112) 92 Nasal Cannula 2.00 10/16/20 05:00 96 17 154/77 (102) 92 Nasal Cannula 2.00 10/16/20 04:00 110 15 138/76 (96) 93 Nasal Cannula 2.00 10/16/20 03:40 95 Nasal Cannula 2.00 10/16/20 03:40 37.2 Nasal Cannula 2.00 10/16/20 03:00 93 18 128/69 (88) 95 Nasal Cannula 2.00 10/16/20 02:06 94 Nasal Cannula 2.00 10/16/20 02:00 105 18 148/94 (112) 93 Nasal Cannula 2.00 10/16/20 01:00 100 176/88 (117) 94 Nasal Cannula 2.00 10/16/20 01:00 107 10/16/20 00:00 110 28 173/92 (119) 94 Nasal Cannula 2.00 10/15/20 23:15 94 Nasal Cannula 2.00 10/15/20 23:00 36.6 107 24 149/87 (107) 94 Nasal Cannula 2.00 10/15/20 22:00 104 22 139/79 (99) 94 Nasal Cannula 2.00 10/15/20 21:24 97 Nasal Cannula 2.00 10/15/20 21:00 98 17 194/88 (123) 99 Nasal Cannula 2.00 10/15/20 20:30 99 18 99 Nasal Cannula 2.00 10/15/20 20:00 108 23 161/91 (114) 98 Nasal Cannula 2.00 10/15/20 19:55 98 Nasal Cannula 2.00 10/15/20 19:45 102 18 97 Nasal Cannula 2.00 10/15/20 19:30 112 17 148/76 (100) 99 Nasal Cannula 2.00 10/15/20 19:15 100 20 159/89 (112) 98 Nasal Cannula 2.00 10/15/20 19:00 104 10/15/20 19:00 36.9 105 21 147/82 (103) 98 Nasal Cannula 2.00 10/15/20 17:32 94 Nasal Cannula 2.00 10/15/20 17:20 107 10/15/20 17:10 37.0 110 35 168/115 (132) 94 Nasal Cannula 2.00 10/15/20 16:56 36.7 107 26 193/98 97 Nasal Cannula 2.00 10/15/20 15:42 114 30 197/110 (139) 97 Nasal Cannula 2.00 10/15/20 14:10 98 Nasal Cannula 2.00 10/15/20 13:27 36.8 120 44 201/119 (146) 97 Nasal Cannula 2.00 I & O 10/16/20 07:00 Intake Total 445 ml Output Total 650 ml Balance -205 ml Height & Weight Height: 5'2.00" Weight: 117lbs. 0.0oz. 53.342989sn; 23.90 BMI Method:Stated General Appearance: Anxious, Chronically ill, Mild Distress, Thin Respiratory: No Respiratory Distress, Accessory Muscle Use, Crackles, Decreased Breath Sounds, Rales, Wheezing Cardiovascular: Regular Rate, Rhythm Capillary Refill: Less Than 3 Seconds Gastrointestinal: non tender, soft Neurologic/Psychiatric: Alert, Oriented x3, No Motor/Sensory Deficits, Normal Mood/Affect Results Lab Laboratory Tests 10/15/20 13:40 10/16/20 03:45 Assessment/Plan Assessment/Plan Available chart/ vitals / labs / Images reviewed Video assessment done using teleICU camera Discussed with RN Events overnight : tachycardia Afebrile hemodynamically stable, o2 - 2lnc, no pressors, I/O = even Drips: Consultants: Hospital course: 10/15/20- to ER withsignificant dyspnea , TX for AECOPD with nebs , steroids , not Covid vaccinated. A/P Acute resp failure with AECOPD - prn NIPPV, steroids nebs - no clear infection - will collect sputum and PCT - follow , start doxy po AECOPD ( baseline COPD with severe airway onbstr FEVI 59% =1.2 L , no resp to br dila tors , severe air trapping RV 190 % ) - nebs , Steroids IV tachycardia at rest -? nebulizer - metoprol on hols - ? resume H/o chronic pain on narcotics hx of breast cancer diagnosed 2004 s/p left lumpectomy hx of Non-Hodgkins lymphoma diagnosed 2004 s/p chemo/radiation Lines : Jordan: Nutrition: PO DVT proph: lovenox 30 SUP - H2bl as per chart : LONG HISTORY OF EXTREME NON-COMPLIANCE IN ALL ASPECTS OF CARE PT HAS REPEATEDLY REFUSED BIPAP/CPAP AND VENTILATOR/INTUBATION ON PREVIOUS VISITS " - patient is full code now as per RN discussion with patient Plans in collaboration with bedside consultants and IM MDs. Discussed with RN to reach out if any questions or concerns A total of 20 minutes of critical care time was devoted to this patient today, required to treat and/or prevent further deterioration of critical care condition ( as above ) . SILVIANO KEMP MD Oct 16, 2020 11:39
[2020-10-16] MEDS: FAMOTIDINE 20 MG (PEPCID) TABLET PO SCH (20:06)
[2020-10-16] MEDS ORDERED: RT--FLUTICASONE/SALMETEROL 232-14 (AIRDUO RespiCLICK) IH SCH (21:00)
[2020-10-17] MEDS: methylPREDNISolone 40 MG/ML (Solu-MEDROL) VIAL IV SCH ×4 (00:29→12:54)
[2020-10-17] MEDS: RT-ALBUTEROL/IPRATROPIUM 3 ML (DUONEB) VIAL INH SCH ×3 (02:18→10:25)
[2020-10-17 06:01] LABS: BASOPHILS % (AUTO) 0 % (0-10); EOSINOPHILS % (AUTO) 0 % (0-10); HEMATOCRIT 33 % (35-52); HEMOGLOBIN 9.9 g/dL (11.5-16.0); LYMPHOCYTES # (AUTO) 0.5 10^3/uL (1.0-4.0); LYMPHOCYTES % (AUTO) 4 % (12-44); MEAN CORPUSCULAR HEMOGLOBIN 23 pg (25-34); MEAN CORPUSCULAR HGB CONC 30 g/dL (32-36); MEAN CORPUSCULAR VOLUME 76 fL (80-99); MEAN PLATELET VOLUME 10.3 fL (9.0-12.2); MONOCYTES # (AUTO) 0.3 10^3/uL (0.0-1.0); MONOCYTES % (AUTO) 2 % (0-12); NEUTROPHILS # (AUTO) 12.1 10^3/uL (1.8-7.8); NEUTROPHILS % (AUTO) 93 % (42-75); PLATELET COUNT 314 10^3/uL (130-400); WHITE BLOOD COUNT 12.9 10^3/uL (4.3-11.0)
[2020-10-17 06:10] LABS: SMEAR SCAN COMMENT YES
[2020-10-17 06:19] LABS: ALBUMIN 3.7 GM/DL (3.2-4.5)
[2020-10-17 06:20] LABS: CHLORIDE 108 MMOL/L (98-107); POTASSIUM 3.7 MMOL/L (3.6-5.0); SODIUM 143 MMOL/L (135-145)
[2020-10-17 06:21] LABS: CALCIUM 9.4 MG/DL (8.5-10.1)
[2020-10-17 06:22] LABS: GLUCOSE 123 MG/DL (70-105); TOTAL PROTEIN 6.1 GM/DL (6.4-8.2)
[2020-10-17 06:23] LABS: CARBON DIOXIDE 23 MMOL/L (21-32)
[2020-10-17 06:24] LABS: BILIRUBIN,TOTAL 0.3 MG/DL (0.1-1.0)
[2020-10-17 06:25] LABS: ALKALINE PHOSPHATASE 109 U/L (40-136)
[2020-10-17] MEDS: DOXYCYCLINE 100 MG (VIBRAMYCIN) TABLET PO SCH (06:25)
[2020-10-17] MEDS: CATHETER FLUSH 10 ML SYR IV SCH ×2 (06:25→12:54)
[2020-10-17 06:26] LABS: CREATININE SERUM 0.61 MG/DL (0.60-1.30); GFR ESTIMATED > 60
[2020-10-17 06:27] LABS: BUN/CREATININE RATIO 30
[2020-10-17 06:28] LABS: ALANINE AMINOTRANSFERASE 25 U/L (0-55)
--- NOTE | 2020-10-17 07:42 | Progress Note - Hospitalist ---
Subjective HPI/CC On Admission Date Seen by Provider: Oct 17, 2020 Chief complaint: Shortness of breath History of present illness: This is a 64-year-old white female clinic patient of formerly [facility] who is known to me from prior hospital stays all due to the same thing of acute exacerbation of COPD. She has very end stage COPD who continues to smoke and has had multiple hospital stays throughout the years and she worsens significantly every time she comes in. She has been placed on IV steroids nebulizer treatments oxygen supplementation and may need BiPAP. She appears to be more declined this time. Objective Exam Vital Signs Vital Signs Date Time Temp Pulse Resp B/P (MAP) Pulse Ox O2 Delivery O2 Flow Rate FiO2 10/17/20 11:35 36.6 102 18 130/71 (90) 95 Nasal Cannula 2.00 Capillary Refill : Less Than 3 Seconds Results/Procedures Lab Laboratory Tests 10/17/20 05:45 Patient resulted labs reviewed. Assessment/Plan Assessment and Plan Assess & Plan/Chief Complaint Assessment: Acute on chronic hypoxic respiratory failure Acute exacerbation of COPD Smoker Plan: ICU status IV steroids Oxygen Monitor closely BiPAP 10/16/2020: Transfer the floor Discontinue catheter IV steroids Diagnosis/Problems Diagnosis/Problems (1) Acute on chronic respiratory failure Status: Acute (2) COPD exacerbation Status: Acute (3) Hypothyroidism Status: Chronic (4) Smoker Status: Acute JAGDEEP HAYNES DO Oct 17, 2020 07:42
[2020-10-17] MEDS ORDERED: UMECLIDINIUM BROMIDE (INCRUSE ELLIPTA) 7'S IH SCH (08:00)
[2020-10-17] MEDS: lisINopril 20 MG (PRINIVIL) TABLET PO SCH (08:52)
[2020-10-17] MEDS: ENOXAPARIN 40 MG/0.4 ML (LOVENOX) SYR SC SCH (08:52)
[2020-10-17] MEDS: FAMOTIDINE 20 MG (PEPCID) TABLET PO SCH (08:53)
[2020-10-17] MEDS: SENNA W/DOCUSATE (SENOKOT S) TABLET PO SCH (08:53)
[2020-10-17] MEDS ORDERED: LORATADINE (CLARITIN) 10 MG TAB PO SCH (09:00)
[2020-10-17] MEDS ORDERED: MONTELUKAST 10 MG (SINGULAIR) TAB PO SCH (09:00)
[2020-10-17] MEDS ORDERED: PRED10TA22 PO (12:46)
[2020-10-17] MEDS ORDERED: LISI20TA26 PO (12:46)
[2020-10-17] MEDS ORDERED: DOXY100T2 PO (12:46)
--- NOTE | 2020-10-17 12:46 | Discharge Summary ---
Discharge Summary Hospital Course Was the Problem List Reviewed?: Yes Problems/Dx: (1) Acute on chronic respiratory failure Status: Acute (2) COPD exacerbation Status: Acute (3) Hypothyroidism Status: Chronic (4) Smoker Status: Acute Hospital Course Date of Admission: Oct 15, 2020 at 16:25 Admission Diagnosis : Family Physician/Provider: [facility] Date of Discharge: 10/17/20 Discharge Diagnosis: Acute on chronic hypoxic respiratory failure, severe COPD with exacerbation, smoker Hospital Course: Short hospital course after she was admitted placed in the ICU required BiPAP and oxygen support with nebulized treatments IV steroids. Patient continues to smoke as an outpatient. Patient was deemed stable for discharge as she wished and she will be obtaining close follow-up with [facility]. Labs and Pending Lab Test: Laboratory Tests 10/17/20 05:45: White Blood Count 12.9H, Red Blood Count 4.38, Hemoglobin 9.9L, Hematocrit 33L, Mean Corpuscular Volume 76L, Mean Corpuscular Hemoglobin 23L, Mean Corpuscular Hemoglobin Concent 30L, Red Cell Distribution Width 15.9H, Platelet Count 314, Mean Platelet Volume 10.3, Immature Granulocyte % (Auto) 1, Neutrophils (%) (Auto) 93H, Lymphocytes (%) (Auto) 4L, Monocytes (%) (Auto) 2, Eosinophils (%) (Auto) 0, Basophils (%) (Auto) 0, Neutrophils # (Auto) 12.1H, Lymphocytes # (Auto) 0.5L, Monocytes # (Auto) 0.3, Eosinophils # (Auto) 0.0, Basophils # (Auto) 0.0, Immature Granulocyte # (Auto) 0.1, Sodium Level 143, Potassium Level 3.7, Chloride Level 108H, Carbon Dioxide Level 23, Anion Gap 12, Blood Urea Nitrogen 18, Creatinine 0.61, Estimat Glomerular Filtration Rate > 60, BUN/Creatinine Ratio 30, Glucose Level 123H, Calcium Level 9.4, Corrected Calcium 9.6, Total Bilirubin 0.3, Aspartate Amino Transf (AST/SGOT) 20, Alanine Aminotransferase (ALT/SGPT) 25, Alkaline Phosphatase 109, Total Protein 6.1L, Albumin 3.7, Smear Scan YES Microbiology 10/15/20 MRSA Screen - Final, Complete MRSA not isolated Home Meds Active Reported Loratadine 10 Mg Tablet 10 Mg PO DAILY Montelukast Sodium 10 Mg Tablet 10 Mg PO DAILY Tylenol (Acetaminophen) 325 Mg Tablet 650 Mg PO Q6H PRN Trelegy Ellipta 100-62.5-25 (Fluticasone/Umeclidin/Vilanter) 1 Each Blst.w.dev 1 Puff INH DAILY Ventolin Hfa (Albuterol Sulfate) 18 Gm Hfa.aer.ad 2 Puff INH Q4H PRN Assessment/Pt Instructions [facility] in 1 week Discharge Planning: <30 minutes discharge planning Discharge Physical Examination Vital Signs Vital Signs Date Time Temp Pulse Resp B/P (MAP) Pulse Ox O2 Delivery O2 Flow Rate FiO2 10/17/20 11:35 36.6 102 18 130/71 (90) 95 Nasal Cannula 2.00 General Appearance: No Apparent Distress, WD/WN, Chronically ill, Thin Respiratory: No Accessory Muscle Use, No Respiratory Distress, Decreased Breath Sounds Cardiovascular: Regular Rate, Rhythm Neurologic/Psychiatric: Alert, Oriented x3 Allergies: Coded Allergies: oxycodone HCl (Verified Adverse Reaction, Severe, BLACK OUT, 07/18/20) morphine (Verified Adverse Reaction, Intermediate, Blackout, 07/18/20) Discharge Summary Date of Admission Oct 15, 2020 at 16:25 Date of Discharge Discharge Date: Oct 17, 2020 Admission Diagnosis Assessment: Acute on chronic hypoxic respiratory failure Acute exacerbation of COPD Smoker Plan: ICU status IV steroids Oxygen Monitor closely BiPAP Discharge Diagnosis Assessment: Acute on chronic hypoxic respiratory failure Acute exacerbation of COPD Smoker Plan: ICU status IV steroids Oxygen Monitor closely BiPAP 10/16/2020: Transfer the floor Discontinue catheter IV steroids (1) Acute on chronic respiratory failure Status: Acute (2) COPD exacerbation Status: Acute (3) Hypothyroidism Status: Chronic (4) Smoker Status: Acute JAGDEEP HAYNES DO Oct 17, 2020 12:46
[2020-10-17 14:04] VITALS: BP 130/71
== END 2020-10-17 14:07 | disposition home or self-care (01) ==
LOC: EDUNIT# 13:16 → ER 13:18 → ICU 16:25 → 4TH 10-16 15:53
PROVIDERS: ADMIT Internal Medicine; ATTEND Internal Medicine
DX: J96.20 Acute and chronic respiratory failure, unspecified whether with hypoxia or hypercapnia (principal); J44.1 Chronic obstructive pulmonary disease with (acute) exacerbation; E78.00 Pure hypercholesterolemia, unspecified; E78.5 Hyperlipidemia, unspecified; I10 Essential (primary) hypertension; K21.9 Gastro-esophageal reflux disease without esophagitis; M19.90 Unspecified osteoarthritis, unspecified site; G89.29 Other chronic pain; M54.9 Dorsalgia, unspecified; E03.9 Hypothyroidism, unspecified; F41.9 Anxiety disorder, unspecified; F17.200 Nicotine dependence, unspecified, uncomplicated; Z85.3 Personal history of malignant neoplasm of breast; Z92.21 Personal history of antineoplastic chemotherapy; Z92.3 Personal history of irradiation; Z79.890 Hormone replacement therapy; Z79.899 Other long term (current) drug therapy; Z90.89 Acquired absence of other organs; Z98.51 Tubal ligation status; Z91.19 Patient's noncompliance with other medical treatment and regimen; Z99.89 Dependence on other enabling machines and devices; Z85.72 Personal history of non-Hodgkin lymphomas; M81.0 Age-related osteoporosis without current pathological fracture; Z80.1 Family history of malignant neoplasm of trachea, bronchus and lung; Z80.41 Family history of malignant neoplasm of ovary
CPT/HCPCS: 36415; 36600; 71045; 80048; 80053; 81000; 82805; 83735; 84100; 84145; 85025; 87081; 94640; 94760; G0378

== ENCOUNTER 2020-10-19 19:40 | Emergency (ER) | payer MEDICARE ==
[~2020-10-19] VITALS: Ht 157.5 cm; Wt 58.9 kg
--- NOTE | 2020-10-19 20:05 | ED Integumentary General ---
General Chief Complaint: Skin/Wound Problems Stated Complaint: SIDE PAIN,BACK PAIN,RASH Source: patient History of Present Illness Date Seen by Provider: Oct 19, 2020 Time Seen by Provider: 19:57 Initial Comments PT ARRIVES VIA POV FROM HOME PT HAS COPD AND STATES SHE WAS HERE A COUPLE OF DAYS AGO FOR IT ( ACTUALLY ADMITTED 10/15/20-10/17/20) , AND WAS STARTED ON ANTIBIOTICS AND STEROIDS--STARTED ON DOXYCYCLINE AND STEROID TAPER, ALSO STARTED ON LISINOPRIL THOSE SYMPTOMS ARE NOT WORSE NO FEVER PT HAS NOT USED INHALER OR NEBULIZER SINCE YESTERDAY--STATES SHE DIDN'T USE THEM BECAUSE SHE "JUST DIDN'T FEEL LIKE IT" TODAY PT HAS HAD PAIN TO LEFT BACK AND LEFT SIDE OF CHEST AND A RASH IN THIS AREA OF PAIN TODAY TOOK 1 ADVIL THIS MORNING, OTHERWISE HAS NOT TAKEN ANYTHING ELSE FOR PAIN C/O NAUSEA NO VOMITING PT IS O2 DEPENDENT AT 2L/NC CONTINOUSLY PT CONTINUES TO SMOKE UP TO 3 PPD PCP: [facility] [place] Allergies and Home Medications Allergies Coded Allergies: oxycodone HCl (Verified Adverse Reaction, Severe, BLACK OUT, 07/18/20) morphine (Verified Adverse Reaction, Intermediate, Blackout, 07/18/20) Home Medications Acetaminophen 325 Mg Tablet, 650 MG PO Q6H PRN for PAIN-MILD (1-4), (Reported) Acyclovir 30 Gm Oint, 30 GM TP Q3-4 HOURS Prescribed by: DAWSON ALVARADO on 10/19/202017 Albuterol Sulfate 18 Gm Hfa.aer.ad, 2 PUFF INH Q4H PRN for SHORTNESS OF BREATH, (Reported) Doxycycline Hyclate 100 Mg Tablet, 100 MG PO BID@07,17 Prescribed by: JAGDEEP HAYNES on 10/17/20 1246 Fluticasone/Umeclidin/Vilanter 1 Each Blst.w.dev, 1 PUFF INH DAILY, (Reported) Hydrocodone/Acetaminophen 1 Each Tablet, 1-2 EACH PO Q4-6 HOURS PRN for PAIN Prescribed by: DAWSON ALVARADO on 10/19/202017 Lisinopril 20 Mg Tablet, 20 MG PO DAILY@0900 Prescribed by: JAGDEEP HAYNES on 10/17/20 1246 Loratadine 10 Mg Tablet, 10 MG PO DAILY, (Reported) Montelukast Sodium 10 Mg Tablet, 10 MG PO DAILY, (Reported) Ondansetron 8 Mg Tab.rapdis, 8 MG PO Q6H Prescribed by: DAWSON ALVARADO on 10/19/202017 Prednisone 10 Mg Tab.ds.pk, 10 MG PO DAILY Take 6 tabs(60mg)daily,decrease by 1 tab(10MG)daily. Prescribed by: JAGDEEP HAYNES on 10/17/20 1246 Pregabalin 75 Mg Capsule, 75 MG PO TID Prescribed by: DAWSON ALVARADO on 10/19/202017 Valacyclovir HCl 1,000 Mg Tablet, 1,000 MG PO TIDAC Prescribed by: DAWSON ALVARADO on 10/19/202017 Patient Home Medication List Home Medication List Reviewed: Yes Review of Systems Review of Systems Constitutional: no symptoms reported Respiratory: see HPI, cough Cardiovascular: see HPI Gastrointestinal: see HPI; No abdominal pain; nausea; No vomiting Genitourinary: no symptoms reported Musculoskeletal: see HPI Skin: see HPI Psychiatric/Neurological: No Symptoms Reported Past Gkowzax-Qprbfa-Qcjstd Hx Past Med/Social Hx: Reviewed and Corrections made Patient Social History Alcohol Use: Regular Use Drug of Choice: METH, THC, Smoking Status: Current Everyday Smoker Type Used: Cigarettes 2nd Hand Smoke Exposure: Yes Recent Hopitalizations: Yes Substance type: Methamphetamine, Marijuana Immunizations Up To Date Tetanus Booster (TDap): Less than 5yrs Date of Pneumonia Vaccine: May 17, 2019 Date of Influenza Vaccine: Feb 13, 2020 Seasonal Allergies Seasonal Allergies: No Past Medical History Surgeries: Yes (BILAT CARPAL TUNNEL;L BREAST LUMPECTOMY; HIATAL HERNIA REPAIR; HAND SURGERY) Abdominal, Appendectomy, Breast, Orthopedic, Tubal Ligation Respiratory: Yes (O2 DEPENDENT AT 2L/NC) Pneumonia, Chronic Bronchitis, COPD Cardiac: Yes (CAROTID ARTERY DISEASE) High Cholesterol, Hypertension, Peripheral Vascular Neurological: No 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: No [employer] History: Menopausal Sexually Transmitted Disease: No Genitourinary: No Gastrointestinal: Yes (S/P HIATAL HERNIA REPAIR) Gastroesophageal Reflux, Hiatal Hernia Musculoskeletal: Yes (CHRONIC BACK PAIN; RIGHT SHOULDER SURGERY; BILAT CARPAL TUNNEL;HAND SURGERY) Degenerate Disk Disease, Arthritis, Chronic Back Pain Endocrine: Yes Hypothyroidsim HEENT: No Cancer: Yes (L BREAST CA 2003--S/P LUMPECTOMY/CHEMO/RAD-4 MONTHS LATER DEV. NON-H LYMPH) Breast, Lymphoma Did You Recieve Any Treatments: Yes What Type of Treatment Did You: Chemotherapy, Radiation, Surgical Intervention Psychosocial: Yes (POLYSUBSTANCE ABUSE) Anxiety Integumentary: No Blood Disorders: No Family Medical History Neoplasm 19 FATHER (LUNG) 19 MOTHER G8 SISTER (OVARIAN) SOCIAL HISTORY: -ETOH--HISTORY OF ABUSE, CLAIMS NO RECENT USE -DRUGS--LONG HISTORY OF METH USE--DENIES IV USE, STATES SHE SMOKES IT, ALSO THC USE -SMOKES 2-3 PPD SINCE AGE 9 PMH: -LEFT BREAST CANCER 2003--S/P LUMPECTOMY, CHEMO AND RADIATION; 4 MONTHS LATER, DEVELOPED NON-HODGKIN'S LYMPOMA--S/P CHEMOTHERAPY PSH: -BILATERAL CARPAL TUNNEL -HAND SURGERY -RIGHT SHOULDER SURGERY. -HIATAL HERNIA REPAIR -LEFT BREAST LUMPECTOMY -BTL -APPENDECTOMY LONG HISTORY OF EXTREME NON-COMPLIANCE IN ALL ASPECTS OF CARE PT HAS REPEATEDLY REFUSED BIPAP/CPAP AND VENTILATOR/INTUBATION ON PREVIOUS VISITS Physical Exam Vital Signs Vital Signs - First Documented 10/19/20 19:55 Temp 36.0 Pulse 101 Resp 24 B/P (MAP) 214/129 (157) Pulse Ox 100 O2 Delivery Nasal Cannula O2 Flow Rate 2.00 Capillary Refill : General Appearance: WD/WN, other (MILDLY DYSPNEIC ON ARRIVAL--PT STATES IS NORMAL. PT REEKS OF CIGARETTES, DESPITE MY WEARING 2 MASKS-N-95+ REGULAR MASK) Cardiovascular: regular rate, rhythm, no murmur Respiratory: No rales, No stridor; wheezing (TIGHT WHEEZING IN ALL LUNG F IELDS), other (MILDLY DYSPNEIC, BUT ABLE TO TALK IN SHORT SENTENCES. ) Gastrointestinal: non tender, soft Back: other (TENDERNESS ALONG LEFT LOWER RIBS, ASSOCIATED WITH CLASSIC RASH OF HERPES ZOSTER--PATCHY MACULOPAPULAR / VESICULAR RASH ALONG APPROXIMATELY T8 DERMATOME ) Extremities: normal inspection Neurologic/Psychiatric: no motor/sensory deficits, alert, oriented x 3, other (ANXIOUS ) Skin: normal color, warm/dry, rash (RASH NOTED ABOVE) Progress/Results/Core Measures Results/Orders My Orders Orders - DAWSON ALVARADO DO Albuterol/Ipra Inhalation Soln (Duoneb I (10/19/20 20:15) Dexamethasone Injection (Decadron Injec (10/19/20 20:15) Rt Request For Service (10/19/20 20:01) Svn Small Volume Nebulizer (10/19/20 20:01) Hydrocodone/Apap 5/325 Tablet (Lortab 5 (10/19/20 20:15) Ondansetron Oral Dissolve Tab (Zofran (10/19/20 20:15) Acyclovir Capsule/Tablet (Zovirax Caps (10/19/20 21:00) Dexamethasone Injection (Decadron Inje (10/19/20 20:00) Rx-Hydrocodone/Apap 5-325 Mg (Rx-Vicodin (10/19/20 20:30) Medications Given in ED Current Medications Medications Dose Ordered Sig/Phani Route Start Time Stop Time Status Last Admin Dose Admin Acetaminophen/ Hydrocodone Bitart 1 ea ONCE ONCE PO 10/19/20 20:15 10/19/20 20:16 DC 10/19/20 20:10 1 EA Acetaminophen/ Hydrocodone Bitart 1 ea Q4H PRN PO 10/19/20 20:30 10/19/20 20:54 DC 10/19/20 20:45 1 EA Albuterol/ Ipratropium 3 ml ONCE ONCE INH 10/19/20 20:15 10/19/20 20:16 DC 10/19/20 20:16 3 ML Dexamethasone Sodium Phosphate 10 mg STK-MED ONCE .ROUTE 10/19/20 20:00 10/19/20 20:10 DC 10/19/20 20:19 10 MG Ondansetron HCl 4 mg ONCE ONCE PO 10/19/20 20:15 10/19/20 20:16 DC 10/19/20 20:10 4 MG Vital Signs/I&O 10/19/20 10/19/20 10/19/20 19:55 20:22 20:48 Temp 36.0 36.0 Pulse 101 83 Resp 24 22 B/P (MAP) 214/129 (157) 203/112 (157) Pulse Ox 100 98 98 O2 Delivery Nasal Cannula Nasal Cannula Nasal Cannula O2 Flow Rate 2.00 2.00 2.00 Progress Progress Note : Progress Note GIVEN DUO NEB TREATMENT PT HAS NOT USED INHALER OR NEBULIZER FOR 24 HOURS, WITH DECREASED IN WHEEZING AND LESS DYSPNEIC AT DISMISSAL Departure Impression Primary Impression: Herpes zoster Additional Impression: COPD Disposition: 01 HOME, SELF-CARE Condition: Stable Departure-Patient Inst. Decision time for Depature: 20:20 Referrals: [facility] (PCP/Family) Primary Care Physician Patient Instructions: Exacerbation of COPD (DC), Shingles (DC) Add. Discharge Instructions: CONTINUE YOUR REGULAR MEDICATIONS PRESCRIBED CONTINUE DOXYCYCLINE ANTIBIOTIC AND STEROIDS PRESCRIBED USE YOUR INHALERS AND NEBULIZER PRESCRIBED, EVERY DAY FOLLOW UP WITH [facility] IN 2-3 DAYS FOR FURTHER CARE All discharge instructions reviewed with patient and/or family. Voiced understanding. Scripts Acyclovir (Zovirax) 30 Gm Oint 30 GM TP Q3-4 HOURS, #1 TUBE Prov: DAWSON ALVARADO DO 10/19/20 Pregabalin (Lyrica) 75 Mg Capsule 75 MG PO TID, #30 CAP Prov: DAWSON ALVARADO DO 10/19/20 Hydrocodone/Acetaminophen (Hydrocodone-Acetamin 5-325 mg) 1 Each Tablet 1-2 EACH PO Q4-6 HOURS PRN for PAIN, #20 TAB Prov: DAWSON ALVARADO DO 10/19/20 Ondansetron (Ondansetron Odt) 8 Mg Tab.rapdis 8 MG PO Q6H, #10 TAB Prov: DAWSON ALVARADO DO 10/19/20 Valacyclovir HCl (Valtrex) 1,000 Mg Tablet 1000 MG PO TIDAC, #30 TAB Prov: DEVANG ALVARADOA Estuardo LIVINGSTON 10/19/20 DAWSON ALVARADO DO Oct 19, 2020 20:05
[2020-10-19] MEDS ORDERED: RT-ALBUTEROL/IPRATROPIUM 3 ML (DUONEB) VIAL INH ONE (20:15)
[2020-10-19] MEDS ORDERED: HYDROcodone/APAP 5 MG/325 MG (LORTAB) TAB PO ONE (20:15)
[2020-10-19] MEDS ORDERED: ONDANSETRON 4 MG (ZOFRAN) ORAL DISSOLVE TAB PO ONE (20:15)
[2020-10-19] MEDS ORDERED: ONDA8TAB13 PO (20:18)
[2020-10-19] MEDS ORDERED: ACHD5005 PO (20:18)
[2020-10-19] MEDS ORDERED: ACYC30OI TP (20:18)
[2020-10-19] MEDS ORDERED: PREG75CA PO (20:18)
[2020-10-19] MEDS ORDERED: VALA10004 PO (20:18)
[2020-10-19 20:48] VITALS: BP 203/112
[2020-10-19] MEDS ORDERED: ACYCLOVIR 400 MG TABLET (ZOVIRAX) PO SCH (21:00)
== END 2020-10-19 20:48 | disposition home or self-care (01) ==
LOC: EDUNIT# 19:40 → ER 19:41
DX: B02.9 Zoster without complications (principal); J44.9 Chronic obstructive pulmonary disease, unspecified; I10 Essential (primary) hypertension; I25.10 Atherosclerotic heart disease of native coronary artery without angina pectoris; G89.29 Other chronic pain; M54.9 Dorsalgia, unspecified; F17.210 Nicotine dependence, cigarettes, uncomplicated; Z88.5 Allergy status to narcotic agent; Z91.19 Patient's noncompliance with other medical treatment and regimen; Z99.81 Dependence on supplemental oxygen; Z79.51 Long term (current) use of inhaled steroids; Z79.52 Long term (current) use of systemic steroids; Z79.899 Other long term (current) drug therapy
CPT/HCPCS: 94640; 99283

== ENCOUNTER → 2020-11-30 | Outpatient (CLI) | payer MEDICARE ==
[~2020-11-30] MED LIST changes: +ACHD5005 PO; +ACYC30OI TP; +ONDA8TAB13 PO; +PREG75CA PO; +VALA10004 PO
--- NOTE | 2020-11-30 08:55 | Diagnostic Imaging Report ---
EXAMINATION: CT chest without contrast (lung screening). TECHNIQUE: Multiple contiguous axial images were obtained through the chest without the use of intravenous contrast according to lung cancer screening protocol. All CT scans use one or more of the following dose optimizing techniques: automated exposure control, MA and/or KvP adjustment based on patient size and exam type or iterative reconstruction. HISTORY: 48 pack year history of smoking. COMPARISON: CT chest 07/15/2019 FINDINGS: Thyroid: The thyroid is normal. Mediastinum: Heart size is normal without significant pericardial effusion. Calcifications of the aorta and coronary vessels. Thoracic aorta is normal in caliber. There are multiple prominent mediastinal lymph nodes, the largest of which measures 1.1 cm short axis in the pretracheal space, increased in size from 07/15/2019. Lungs and airways: There are background emphysematous changes of both lungs with biapical scarring. No consolidation, pleural effusion, or pneumothorax. Stable linear nodular scarring along the right upper lobe (series 2 image 54) which measures 1.0 x 0.4 cm. There is a new 0.6 x 0.3 cm right lower lobe subpleural pulmonary nodule (series 2 image 129). There is mild bronchial wall thickening. The airways are patent. Upper abdomen: The subphrenic structures are normal. Musculoskeletal: Degenerative changes of the spine without suspicious osseous lesion or compression fracture. IMPRESSION: 1. A new 0.5 cm average right lower lobe subpleural pulmonary nodule. Recommend followup low-dose CT in 6 months. 2. Additional stable pulmonary nodules. 3. COPD. 4. Mediastinal lymphadenopathy is mildly increased in size which is nonspecific. LUNG-RADS CATEGORY: 3 MODIFIER: S Dictated by: Dictated on workstation # [id number]
== END ==
LOC: RAD 08:15
PROVIDERS: ATTEND Nurse Practitioner Family
DX: Z12.2 Encounter for screening for malignant neoplasm of respiratory organs (principal); J44.9 Chronic obstructive pulmonary disease, unspecified; R91.8 Other nonspecific abnormal finding of lung field; R59.0 Localized enlarged lymph nodes; F17.210 Nicotine dependence, cigarettes, uncomplicated
CPT/HCPCS: 71271

== ENCOUNTER 2020-12-13 14:37 | Emergency (ER) | payer MEDICARE ==
[~2020-12-13] VITALS: Ht 157 cm; Wt 59.0 kg
--- NOTE | 2020-12-13 14:54 | ED Cough/URI ---
General Chief Complaint: Respiratory Problems Stated Complaint: SOA Source: patient Exam Limitations: no limitations History of Present Illness Date Seen by Provider: Dec 13, 2020 Time Seen by Provider: 14:37 Initial Comments This is a 65-year-old female who presents to the ER via [facility] with complaints of increasing shortness of air over the past 2 days, low oxygen saturation despite home 2 L via nasal cannula, increasing weakness. No known Covid exposures. Has not had Covid vaccines. Does have extensive history of COPD she used DuoNeb this morning and approxi-1 hour prior to EMS arrival. On scene EMS administered another DuoNeb due to oxygen saturation low 80s. States she quit smoking cigarettes 3 weeks ago. Allergies and Home Medications Allergies Coded Allergies: oxycodone HCl (Verified Adverse Reaction, Severe, BLACK OUT, 07/18/20) morphine (Verified Adverse Reaction, Intermediate, Blackout, 07/18/20) Home Medications Acetaminophen 325 Mg Tablet, 650 MG PO Q6H PRN for PAIN-MILD (1-4), (Reported) Acyclovir 30 Gm Oint, 30 GM TP Q3-4 HOURS Prescribed by: DAWSON ALVARADO on 10/19/202017 Albuterol Sulfate 18 Gm Hfa.aer.ad, 2 PUFF INH Q4H PRN for SHORTNESS OF BREATH, (Reported) Dexamethasone 6 Mg Tablet, 6 MG PO DAILY Prescribed by: YASMANI JIMENEZ on 12/13/20 1728 Doxycycline Hyclate 100 Mg Tablet, 100 MG PO BID@07,17 Prescribed by: JAGDEEP HAYNES on 10/17/20 1246 Fluticasone/Umeclidin/Vilanter 1 Each Blst.w.dev, 1 PUFF INH DAILY, (Reported) Hydrocodone/Acetaminophen 1 Each Tablet, 1-2 EACH PO Q4-6 HOURS PRN for PAIN Prescribed by: DAWSON ALVARADO on 10/19/202017 Lisinopril 20 Mg Tablet, 20 MG PO DAILY@0900 Prescribed by: JAGDEPE HAYNES on 10/17/20 1246 Loratadine 10 Mg Tablet, 10 MG PO DAILY, (Reported) Montelukast Sodium 10 Mg Tablet, 10 MG PO DAILY, (Reported) Ondansetron 8 Mg Tab.rapdis, 8 MG PO Q6H Prescribed by: DAWSON ALVARADO on 10/19/202017 Prednisone 10 Mg Tab.ds.pk, 10 MG PO DAILY Take 6 tabs(60mg)daily,decrease by 1 tab(10MG)daily. Prescribed by: JAGDEEP HAYNES on 10/17/20 1246 Pregabalin 75 Mg Capsule, 75 MG PO TID Prescribed by: DAWSON ALVARADO on 10/19/202017 Valacyclovir HCl 1,000 Mg Tablet, 1,000 MG PO TIDAC Prescribed by: DAWSON ALVARADO on 10/19/202017 Patient Home Medication List Home Medication List Reviewed: Yes Review of Systems Review of Systems Constitutional: No fever; weakness EENTM: no symptoms reported Respiratory: cough, dyspnea on exertion, short of breath, wheezing Cardiovascular: no symptoms reported Gastrointestinal: no symptoms reported Genitourinary: no symptoms reported Musculoskeletal: no symptoms reported Skin: no symptoms reported Psychiatric/Neurological: No Symptoms Reported Hematologic/Lymphatic: No Symptoms Reported Immunological/Allergic: no symptoms reported Past Hrdxkdx-Jgvhvy-Ktnxrk Hx Patient Social History Tobacco Use?: No Smoking Status: Former Smoker Substance use?: No Alcohol Use?: No Immunizations Up To Date Tetanus Booster (TDap): Less than 5yrs Seasonal Allergies Seasonal Allergies: No Past Medical History Surgeries: Yes (BILAT CARPAL TUNNEL;L BREAST LUMPECTOMY; HIATAL HERNIA REPAIR; HAND SURGERY) Abdominal, Appendectomy, Breast, Orthopedic, Tubal Ligation Respiratory: Yes (O2 DEPENDENT AT 2L/NC) Pneumonia, Chronic Bronchitis, COPD Cardiac: Yes (CAROTID ARTERY DISEASE) High Cholesterol, Hypertension, Peripheral Vascular Neurological: No 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: No PEDIATRIC PHYSIATRIST History: Menopausal Sexually Transmitted Disease: No Genitourinary: No Gastrointestinal: Yes (S/P HIATAL HERNIA REPAIR) Gastroesophageal Reflux, Hiatal Hernia Musculoskeletal: Yes (CHRONIC BACK PAIN; RIGHT SHOULDER SURGERY; BILAT CARPAL TUNNEL;HAND SURGERY) Degenerate Disk Disease, Arthritis, Chronic Back Pain Endocrine: Yes Hypothyroidsim HEENT: No Cancer: Yes (L BREAST CA 2004--S/P LUMPECTOMY/CHEMO/RAD-4 MONTHS LATER DEV. NON-H LYMPH) Breast, Lymphoma Did You Recieve Any Treatments: Yes What Type of Treatment Did You: Chemotherapy, Radiation, Surgical Intervention Psychosocial: Yes (POLYSUBSTANCE ABUSE) Anxiety Integumentary: No (SHINGLES) Herpes Blood Disorders: No Family Medical History Neoplasm 19 FATHER (LUNG) 19 MOTHER G8 SISTER (OVARIAN) SOCIAL HISTORY: -ETOH--HISTORY OF ABUSE, CLAIMS NO RECENT USE -DRUGS--LONG HISTORY OF METH USE--DENIES IV USE, STATES SHE SMOKES IT, ALSO THC USE -SMOKES 2-3 PPD SINCE AGE 9 PMH: -LEFT BREAST CANCER 2003--S/P LUMPECTOMY, CHEMO AND RADIATION; 4 MONTHS LATER, DEVELOPED NON-HODGKIN'S LYMPOMA--S/P CHEMOTHERAPY PSH: -BILATERAL CARPAL TUNNEL -HAND SURGERY -RIGHT SHOULDER SURGERY. -HIATAL HERNIA REPAIR -LEFT BREAST LUMPECTOMY -BTL -APPENDECTOMY LONG HISTORY OF EXTREME NON-COMPLIANCE IN ALL ASPECTS OF CARE PT HAS REPEATEDLY REFUSED BIPAP/CPAP AND VENTILATOR/INTUBATION ON PREVIOUS VISITS Physical Exam Vital Signs - First Documented Capillary Refill : Height: 5'2.00" Weight: 117lbs. 0.0oz. 53.030455du; 23.00 BMI Method:Stated General Appearance: WD/WN, no apparent distress Eyes: Bilateral Eye PERRL, Bilateral Eye EOMI HEENT: PERRL/EOMI, normal ENT inspection, pharynx normal Neck: full range of motion, normal inspection Respiratory: chest non-tender, no respiratory distress, no accessory muscle use, rales (diffuse), wheezing (diffuse), other (tachypneic ) Cardiovascular: regular rate, rhythm, no edema, no gallop Gastrointestinal: normal bowel sounds, non tender, soft Genital/Rectal: normal rectal exam, heme negative stool Extremities: normal range of motion, normal inspection Neurologic/Psychiatric: no motor/sensory deficits, alert, normal mood/affect, oriented x 3 Skin: normal color, warm/dry Focused Exam Lactate Level 12/13/20 15:00: Lactic Acid Level 1.09 Lactic Acid Level Laboratory Tests Test 12/13/20 15:00 Lactic Acid Level 1.09 MMOL/L (0.50-2.00) Progress/Results/Core Measures Suspected Sepsis SIRS Temperature: Pulse: Respiratory Rate: Laboratory Tests 12/13/20 14:55: White Blood Count 3.6L Blood Pressure / Mean: 12/13/20 15:00: Lactic Acid Level 1.09 Laboratory Tests 12/13/20 14:55: Platelet Count 210 12/13/20 15:00: Creatinine 0.70, INR Comment 1.0, Total Bilirubin 0.2 Results/Orders Lab Results Laboratory Tests Test 12/13/20 14:55 12/13/20 15:00 12/13/20 15:04 12/13/20 17:37 Range/Units White Blood Count 3.6 L 4.3-11.0 10^3/uL Red Blood Count 3.84 3.80-5.11 10^6/uL Hemoglobin 7.9 L 11.5-16.0 g/dL Hematocrit 28 L 35-52 % Mean Corpuscular Volume 73 L 80-99 fL Mean Corpuscular Hemoglobin 21 L 25-34 pg Mean Corpuscular Hemoglobin Concent 28 L 32-36 g/dL Red Cell Distribution Width 17.2 H 10.0-14.5 % Platelet Count 210 130-400 10^3/uL Mean Platelet Volume 10.5 9.0-12.2 fL Immature Granulocyte % (Auto) 1 % Neutrophils (%) (Auto) 67 42-75 % Lymphocytes (%) (Auto) 26 12-44 % Monocytes (%) (Auto) 6 0-12 % Eosinophils (%) (Auto) 0 0-10 % Basophils (%) (Auto) 0 0-10 % Neutrophils # (Auto) 2.4 1.8-7.8 10^3/uL Lymphocytes # (Auto) 1.0 1.0-4.0 10^3/uL Monocytes # (Auto) 0.2 0.0-1.0 10^3/uL Eosinophils # (Auto) 0.0 0.0-0.3 10^3/uL Basophils # (Auto) 0.0 0.0-0.1 10^3/uL Immature Granulocyte # (Auto) 0.0 0.0-0.1 10^3/uL Prothrombin Time 13.0 12.2-14.7 SEC INR Comment 1.0 0.8-1.4 Activated Partial Thromboplast Time 33 24-35 SEC D-Dimer 1.08 H 0.00-0.49 UG/ML Sodium Level 138 135-145 MMOL/L Potassium Level 2.8 L 3.6-5.0 MMOL/L Chloride Level 99 98-107 MMOL/L Carbon Dioxide Level 26 21-32 MMOL/L Anion Gap 13 5-14 MMOL/L Blood Urea Nitrogen 7 7-18 MG/DL Creatinine 0.70 0.60-1.30 MG/DL Estimat Glomerular Filtration Rate 84 BUN/Creatinine Ratio 10 Glucose Level 101 70-105 MG/DL Lactic Acid Level 1.09 0.50-2.00 MMOL/L Calcium Level 7.8 L 8.5-10.1 MG/DL Corrected Calcium 8.0 L 8.5-10.1 MG/DL Total Bilirubin 0.2 0.1-1.0 MG/DL Aspartate Amino Transf (AST/SGOT) 32 5-34 U/L Alanine Aminotransferase (ALT/SGPT) 11 0-55 U/L Alkaline Phosphatase 92 40-136 U/L Troponin I 0.032 H < 0.028 <0.028 NG/ML C-Reactive Protein High Sensitivity 0.96 H 0.00-0.50 MG/DL Total Protein 6.3 L 6.4-8.2 GM/DL Albumin 3.7 3.2-4.5 GM/DL Procalcitonin 0.09 <0.10 NG/ML Influenza Type A (RT-PCR) Not Detected Not Detecte Influenza Type B (RT-PCR) Not Detected Not Detecte SARS-CoV-2 RNA (RT-PCR) Detected H Not Detecte Blood Gas Puncture Site LT RAD Blood Gas Patient Temperature 100.2 Arterial Blood pH 7.37 7.37-7.43 Arterial Blood Partial Pressure CO2 47 H 35-45 MMHG Arterial Blood Partial Pressure O2 69 L 79-93 MMHG Arterial Blood HCO3 26 23-27 MMOL/L Arterial Blood Total CO2 27.5 21.0-31.0 MMOL/L Arterial Blood Oxygen Saturation 94 94-100 % Arterial Blood Base Excess 1.5 -2.5-2.5 MMOL/L Robby Test YES-POS Blood Gas Ventilator Setting NO Blood Gas Inspired Oxygen 2 L My Orders Orders - YASMANI JIMENEZ TRIAL MANAGER Covid 19 Inhouse Test (12/13/20 14:39) Influenza A And B By Pcr (12/13/20 14:39) Methylprednisolone Sod Succ (Solu-Medrol (12/13/20 15:00) Cbc With Automated Diff (12/13/20 14:51) Comprehensive Metabolic Panel (12/13/20 14:51) Blood Culture (12/13/20 14:51) Protime With Inr (12/13/20 14:51) Partial Thromboplastin Time (12/13/20 14:51) Chest 1 View, Ap/Pa Only (12/13/20 14:51) Acetaminophen Tablet (Tylenol Tablet) (12/13/20 15:00) Ed Iv/Invasive Line Start (12/13/20 14:51) Troponin I (12/13/20 14:51) O2 (12/13/20 14:51) Lactic Acid Analyzer (12/13/20 14:51) Arterial Blood Gas (12/13/20 15:06) Fibrin Degradation Products (12/13/20 15:55) Ekg Tracing (12/13/20 15:55) Hs C Reactive Protein (12/13/20 15:55) Procalcitonin (Pct) (12/13/20 15:55) Fecal Occult Bedside (12/13/20 15:55) Potassium Chloride (Tablet) (K Dur Table (12/13/20 16:30) Troponin I (12/13/20 17:35) Medications Given in ED Vital Signs/I&O 12/13/20 12/13/20 12/13/20 14:37 14:37 19:14 Temp 38.2 36.8 Pulse 93 83 Resp 27 18 B/P (MAP) 110/66 (81) 143/81 (81) Pulse Ox 99 98 94 O2 Delivery Nasal Cannula Nasal Cannula Nasal Cannula O2 Flow Rate 2.00 2.00 2.00 Capillary Refill : Progress Note : Progress Note Upon EMS arrival patient appears to be in no acute distress, she is a little tachynepic with exertion moving from EMS cot to ED cot. She just completed Duoneb per EMS and is on 3liters via NC. Oxygen saturation at this time 98-99%. Decreased oxygen to her baseline 2 liters. Remained 96% on 2 liters. Patient has extensive history of COPD. Orders given for Solumedrol 125mg IV. Will order basic labs, COVID, CXR for any infectious sources of her acute respiratory distress. Labs reviewed. She is COVID positive. CXR neg for acute pathology. Noted to be anemic at 7.9. FOBT neg. She is breathing easier with RR-18, oxgyen saturation remains 96% on her home 2 liters. Discussed use of monoclonal antibody therapy to reduce risk of disease progression and hospitalization. Reviewed alternative treatments as well as risk/benefits of monoclonal therapies. Fact sheet provided. Patient consented to outpatient monoclonal antibody therapy, stating she would like to avoid hospitalization if possible. Case reviewed with hospitalist Dr. Bañuelos. Agrees that patient stable for discharge and is to be schedule for monoclonal antibody infusion outpatient. As she is stable on her home oxygen 2 liters NC, will given Dexamethasone as this will also benefit her COPD. She is to take daily iron supplements until she is able to follow up for repeat labs and additional workup for anemia. Patient states she has home albuterol and duoneb treatments. States she is feeling much improved and ready to discharge. Reviewed discharge POC and she is agreeable with plan. Diagnostic Imaging Diagonstic Imaging: Xray Plain Films/CT/US/NM/MRI: chest Comments [facility], [place] NAME: [facility] REC#: [id number] PT STATUS: REG ER : 1955 PHYSICIAN: YASMANI JIMENEZ TRIAL MANAGER ADMIT DATE: 12/13/20/ER Signed Date of Exam:12/13/20 CHEST 1 VIEW, AP/PA ONLY INDICATION: Shortness of air. TIME OF EXAM: 4:03 p.m. COMPARISON: Correlation is made with prior chest from 10/15/2020. FINDINGS: The heart size is normal. The pulmonary vascularity is unremarkable. The lungs are clear. No infiltrate, effusion or pneumothorax is detected. IMPRESSION: No acute cardiopulmonary process is detected. Dictated by: Dictated on workstation # [id number] Dict: 12/13/20 1616 Trans: 12/13/20 1631 [facility] [id number] Interpreted by: ROXANA AGUILAR MD Electronically signed by: ROXANA AGUILAR MD 12/13/20 1631 Reviewed: Reviewed by Me Departure Impression Primary Impression: COVID-19 Additional Impressions: COPD exacerbation Anemia Disposition: HOME, SELF-CARE Condition: Improved Departure-Patient Inst. Decision time for Depature: 17:12 Referrals: [facility] (PCP/Family) Primary Care Physician Patient Instructions: Anemia Caused by Low Iron, REGEN-COV (casirivimab and imdevimab) FDA Fact Sheet, COPD Exacerbation, Adult ED Add. Discharge Instructions: Plan: 1. Take steroids as directed daily with food. 2. The hospital will call you with your date/time on infusion. 3. Continue to wear your home 2 liters of oxygen. 4. Use your albuterol nebulizers every 4-6 hours while awake. 5. Use incentive spirometer every 2 hours while awake. 6. Increase your intake of potassium rich foods or drink electrolyte drinks. 7. May take an over the counter iron tablet twice a day. Follow up with your doctor regarding your anemia. 8. Return to ER if you develop and new, concerning, or worsening symptoms. All discharge instructions reviewed with patient and/or family. Voiced understanding. Scripts Dexamethasone (Dexamethasone) 6 Mg Tablet 6 MG PO DAILY for 5 Days, TAB 5 Refills Prov: YASMANI JIMENEZ TRIAL MANAGER 12/13/20 YASMANI JIMENEZ TRIAL MANAGER Dec 13, 2020 14:54
[2020-12-13] MEDS ORDERED: ACETAMINOPHEN 500 MG TAB (TYLENOL) PO PRN (15:00)
[2020-12-13] MEDS ORDERED: methylPREDNISolone 125 MG (Solu-MEDROL) VIAL IVP ONE (15:00)
[2020-12-13 15:20] LABS: BASOPHILS % (AUTO) 0 % (0-10); EOSINOPHILS % (AUTO) 0 % (0-10); HEMATOCRIT 28 % (35-52); HEMOGLOBIN 7.9 g/dL (11.5-16.0); LYMPHOCYTES % (AUTO) 26 % (12-44); MEAN CORPUSCULAR HEMOGLOBIN 21 pg (25-34); MEAN CORPUSCULAR HGB CONC 28 g/dL (32-36); MEAN CORPUSCULAR VOLUME 73 fL (80-99); MEAN PLATELET VOLUME 10.5 fL (9.0-12.2); MONOCYTES # (AUTO) 0.2 10^3/uL (0.0-1.0); MONOCYTES % (AUTO) 6 % (0-12); NEUTROPHILS # (AUTO) 2.4 10^3/uL (1.8-7.8); NEUTROPHILS % (AUTO) 67 % (42-75); PLATELET COUNT 210 10^3/uL (130-400); WHITE BLOOD COUNT 3.6 10^3/uL (4.3-11.0)
[2020-12-13 15:20] LABS: ABG BASE EXCESS 1.5 MMOL/L (-2.5-2.5); ABG OXYGEN SATURATION 94 % (94-100); ABG PCO2 47 MMHG (35-45); ABG PH 7.37 (7.37-7.43); ABG PO2 69 MMHG (79-93); ABG TCO2 27.5 MMOL/L (21.0-31.0)
[2020-12-13 15:22] LABS: ALLENS TEST YES-POS; INSPIRED O2 2 L; PATIENT TEMP 100.2; VENTILATOR NO
[2020-12-13 15:35] LABS: ALBUMIN 3.7 GM/DL (3.2-4.5)
[2020-12-13 15:36] LABS: POTASSIUM 2.8 MMOL/L (3.6-5.0)
[2020-12-13 15:37] LABS: CALCIUM 7.8 MG/DL (8.5-10.1)
[2020-12-13 15:38] LABS: TOTAL PROTEIN 6.3 GM/DL (6.4-8.2)
[2020-12-13 15:40] LABS: BILIRUBIN,TOTAL 0.2 MG/DL (0.1-1.0)
[2020-12-13 15:42] LABS: CREATININE SERUM 0.7 MG/DL (0.60-1.30)
--- NOTE | 2020-12-13 16:24 | Diagnostic Imaging Report ---
INDICATION: Shortness of air. TIME OF EXAM: 4:03 p.m. COMPARISON: Correlation is made with prior chest from 10/15/2020. FINDINGS: The heart size is normal. The pulmonary vascularity is unremarkable. The lungs are clear. No infiltrate, effusion or pneumothorax is detected. IMPRESSION: No acute cardiopulmonary process is detected. Dictated by: Dictated on workstation # [id number]
[2020-12-13] MEDS ORDERED: KCL 20 MEQ TAB (K-DUR) PO ONE (16:30)
[2020-12-13] MEDS ORDERED: DEXA6TAB PO (17:28)
[2020-12-13 19:14] VITALS: BP 143/81
== END 2020-12-13 19:25 | disposition home or self-care (01) ==
LOC: EDUNIT# 14:37 → ER 14:39
DX: U07.1 COVID-19 (principal); J44.1 Chronic obstructive pulmonary disease with (acute) exacerbation; D64.9 Anemia, unspecified; I10 Essential (primary) hypertension; G89.29 Other chronic pain; M54.9 Dorsalgia, unspecified; Z87.891 Personal history of nicotine dependence; Z79.891 Long term (current) use of opiate analgesic; Z79.52 Long term (current) use of systemic steroids; Z79.899 Other long term (current) drug therapy
CPT/HCPCS: 36415; 71045; 80053; 82274; 82805; 83605; 84145; 84484; 85025; 85379; 85610; 85730; 86141; 87040; 87636; 93005

== ENCOUNTER 2020-12-15 00:07 | Inpatient (IN) | payer MEDICARE ==
[~2020-12-15] VITALS: Ht 157.4 cm; Wt 60.5 kg
[2020-12-15] VITALS (12 sets, daily range): BP systolic 85–151; BP diastolic 53–105
[~2020-12-15 00:07] MED LIST changes: +DEXA6TAB PO
[2020-12-15] MEDS ORDERED: RT-ALBUTEROL SULF 2.5 MG/3 ML PRE-MIX VIAL INH STA (00:18)
[2020-12-15] MEDS ORDERED: LORazepam INJ 2 MG/ML (ATIVAN) VIAL IVP ONE (00:30)
[2020-12-15] MEDS ORDERED: RT-ALBUTEROL/IPRATROPIUM 3 ML (DUONEB) VIAL INH ONE (00:30)
[2020-12-15] MEDS ORDERED: ACETAMINOPHEN 500 MG TAB (TYLENOL) PO ONE (00:30)
[2020-12-15 00:43] LABS: BASOPHILS % (AUTO) 0 % (0-10); EOSINOPHILS % (AUTO) 0 % (0-10); HEMATOCRIT 26 % (35-52); HEMOGLOBIN 7.5 g/dL (11.5-16.0); LYMPHOCYTES # (AUTO) 0.7 10^3/uL (1.0-4.0); LYMPHOCYTES % (AUTO) 13 % (12-44); MEAN CORPUSCULAR HEMOGLOBIN 21 pg (25-34); MEAN CORPUSCULAR HGB CONC 29 g/dL (32-36); MEAN CORPUSCULAR VOLUME 73 fL (80-99); MEAN PLATELET VOLUME 10.3 fL (9.0-12.2); MONOCYTES # (AUTO) 0.1 10^3/uL (0.0-1.0); MONOCYTES % (AUTO) 3 % (0-12); NEUTROPHILS # (AUTO) 4.6 10^3/uL (1.8-7.8); NEUTROPHILS % (AUTO) 84 % (42-75); PLATELET COUNT 197 10^3/uL (130-400); WHITE BLOOD COUNT 5.4 10^3/uL (4.3-11.0)
[2020-12-15 00:44] LABS: BILIRUBIN,URINE NEGATIVE (NEGATIVE); CLARITY,URINE CLEAR; COLOR,URINE YELLOW; GLUCOSE, URINE (UA) NEGATIVE (NEGATIVE); KETONES,URINE NEGATIVE (NEGATIVE); LEUKOCYTE ESTERASE ,URINE NEGATIVE (NEGATIVE); NITRITE,URINE POSITIVE (NEGATIVE); PROTEIN,URINE TRACE (NEGATIVE)
[2020-12-15 00:50] LABS: ALBUMIN 3.6 GM/DL (3.2-4.5); POTASSIUM 3.2 MMOL/L (3.6-5.0)
[2020-12-15 00:51] LABS: RBC,URINE 0-2 /HPF
[2020-12-15 00:52] LABS: BACTERIA,URINE LARGE /HPF; HYALINE CASTS, URINE 0-2 /LPF; SQUAMOUS EPITHELIAL CELL,UR 0-2 /HPF
[2020-12-15 00:54] LABS: BILIRUBIN,TOTAL 0.2 MG/DL (0.1-1.0)
[2020-12-15 00:56] LABS: CREATININE SERUM 0.66 MG/DL (0.60-1.30); FIBRIN DEGRADATION PRODUCTS 0.9 UG/ML (0.00-0.49); INR 0.9 (0.8-1.4); PROTHROMBIN TIME PATIENT 12.7 SEC (12.2-14.7)
[2020-12-15] MEDS ORDERED: cefTRIAXone 1,000 MG in WATER (STERILE) FOR INJECTION 10 ML IV ONE (01:00)
--- NOTE | 2020-12-15 01:54 | ED General ---
General Chief Complaint: Respiratory Problems Stated Complaint: COVID+ Nursing Triage Note: BROUGHT IN BY [facility] FOR C/O INCREASED SOA/O2 USE AT HOME DX WITH COVID 12/13/20 Source of Information: Patient, EMS, Old Records Exam Limitations: No Limitations History of Present Illness Date Seen by Provider: Dec 15, 2020 Time Seen by Provider: 00:09 Initial Comments This 65-year-old woman with oxygen dependent COPD presents to the emergency department after being diagnosed with COVID-19 in this same ER on December 13. She has become increasingly short of breath and is now in respiratory distress and requiring 5 to 6 L by nasal cannula. She was prescribed dexamethasone but has not been able to fill the prescription. She is not vaccinated for COVID-19. She lives alone and is now not able to function at home. She quit smoking about 3 weeks ago. Allergies and Home Medications Allergies Coded Allergies: oxycodone HCl (Verified Adverse Reaction, Severe, BLACK OUT, 07/18/20) morphine (Verified Adverse Reaction, Intermediate, Blackout, 07/18/20) Home Medications Acetaminophen 325 Mg Tablet, 650 MG PO Q6H PRN for PAIN-MILD (1-4), (Reported) Acyclovir 30 Gm Oint, 30 GM TP Q3-4 HOURS Prescribed by: DAWSON ALVARADO on 10/19/202017 Albuterol Sulfate 18 Gm Hfa.aer.ad, 2 PUFF INH Q4H PRN for SHORTNESS OF BREATH, (Reported) Dexamethasone 6 Mg Tablet, 6 MG PO DAILY Prescribed by: YASMANI JIMENEZ on 12/13/20 1728 Doxycycline Hyclate 100 Mg Tablet, 100 MG PO BID@07,17 Prescribed by: JAGDEEP HAYNES on 10/17/20 1246 Fluticasone/Umeclidin/Vilanter 1 Each Blst.w.dev, 1 PUFF INH DAILY, (Reported) Hydrocodone/Acetaminophen 1 Each Tablet, 1-2 EACH PO Q4-6 HOURS PRN for PAIN Prescribed by: DAWSON ALVARADO on 10/19/202017 Lisinopril 20 Mg Tablet, 20 MG PO DAILY@0900 Prescribed by: JAGDEEP HAYNES on 10/17/20 1246 Loratadine 10 Mg Tablet, 10 MG PO DAILY, (Reported) Montelukast Sodium 10 Mg Tablet, 10 MG PO DAILY, (Reported) Ondansetron 8 Mg Tab.rapdis, 8 MG PO Q6H Prescribed by: DAWSON ALVARADO on 10/19/202017 Prednisone 10 Mg Tab.ds.pk, 10 MG PO DAILY Take 6 tabs(60mg)daily,decrease by 1 tab(10MG)daily. Prescribed by: JAGDEEP HAYNES on 10/17/20 1246 Pregabalin 75 Mg Capsule, 75 MG PO TID Prescribed by: DAWSON ALVARADO on 10/19/202017 Valacyclovir HCl 1,000 Mg Tablet, 1,000 MG PO TIDAC Prescribed by: DAWSON ALVARADO on 10/19/202017 Patient Home Medication List Home Medication List Reviewed: Yes Review of Systems Review of Systems Constitutional: weakness EENTM: no symptoms reported Respiratory: see HPI Cardiovascular: no symptoms reported Gastrointestinal: no symptoms reported Genitourinary: other (No appetite, difficult to eat and drink) : No Musculoskeletal: no symptoms reported Skin: no symptoms reported Psychiatric/Neurological: No Symptoms Reported, See HPI Hematologic/Lymphatic: No Symptoms Reported Past Eemfoht-Vgklpz-Axwrnc Hx Patient Social History Tobacco Use?: Yes Tobacco type used: Cigarettes Smoking Status: Current Someday Smoker Use of E-Cig and/or Vaping dev: No Substance use?: No Alcohol Use?: No Pt feels they are or have been: No Immunizations Up To Date Tetanus Booster (TDap): Less than 5yrs Seasonal Allergies Seasonal Allergies: No Past Medical History Surgeries: Yes (BILAT CARPAL TUNNEL;L BREAST LUMPECTOMY; HIATAL HERNIA REPAIR; HAND SURGERY) Abdominal, Appendectomy, Breast, Orthopedic, Tubal Ligation Respiratory: Yes (O2 DEPENDENT AT 2L/NC) Pneumonia, Chronic Bronchitis, COPD Cardiac: Yes (CAROTID ARTERY DISEASE) High Cholesterol, Hypertension, Peripheral Vascular Neurological: No 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: No 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 NON-H LYMPH) Breast, Lymphoma Did You Recieve Any Treatments: Yes What Type of Treatment Did You: Chemotherapy, Radiation, Surgical Intervention Psychosocial: Yes (POLYSUBSTANCE ABUSE) Anxiety Integumentary: No (SHINGLES) Herpes Blood Disorders: No Family Medical History Neoplasm 19 FATHER (LUNG) 19 MOTHER G8 SISTER (OVARIAN) SOCIAL HISTORY: -ETOH--HISTORY OF ABUSE, CLAIMS NO RECENT USE -DRUGS--LONG HISTORY OF METH USE--DENIES IV USE, STATES SHE SMOKES IT, ALSO THC USE -SMOKES 2-3 PPD SINCE AGE 9 PMH: -LEFT BREAST CANCER 2003--S/P LUMPECTOMY, CHEMO AND RADIATION; 4 MONTHS LATER, DEVELOPED NON-HODGKIN'S LYMPOMA--S/P CHEMOTHERAPY PSH: -BILATERAL CARPAL TUNNEL -HAND SURGERY -RIGHT SHOULDER SURGERY. -HIATAL HERNIA REPAIR -LEFT BREAST LUMPECTOMY -BTL -APPENDECTOMY LONG HISTORY OF EXTREME NON-COMPLIANCE IN ALL ASPECTS OF CARE PT HAS REPEATEDLY REFUSED BIPAP/CPAP AND VENTILATOR/INTUBATION ON PREVIOUS VISITS Physical Exam-Suspected Sepsis Physical Exam Vital Signs Vital Signs - First Documented 12/15/20 12/15/20 12/15/20 00:10 00:42 03:08 Temp 39.7 Pulse 120 Resp 28 B/P (MAP) 170/74 (106) Pulse Ox 97 O2 Delivery Nasal Cannula O2 Flow Rate 40.00 FiO2 40 Capillary Refill : Less Than 3 Seconds Blood Pressure Mean: 106 Height, Weight, BMI Height: 5'2.00" Weight: 117lbs. 0.0oz. 53.407150az; 23.00 BMI Method:Stated General Appearance: WD/WN, Moderate Distress HEENT: PERRL/EOMI, Normal ENT Inspection Neck: Normal Inspection Respiratory: No Crackles; Respiratory Distress, Wheezing Cardiovascular: Regular Rate, Rhythm, No Edema, No Gallop, No JVD, No Murmur, Normal Peripheral Pulses Gastrointestinal: Non Tender, Soft Extremity: Normal Inspection, No Pedal Edema Neurologic/Psychiatric: Alert, Oriented x3, No Motor/Sensory Deficits, Normal Mood/Affect, wheel borer II-XII Norm as Tested Skin: normal color, warm/dry Focused Exam Lactate Level 12/15/20 00:10: Lactic Acid Level 1.17 Lactic Acid Level Progress/Results/Core Measures Suspected Sepsis SIRS Temperature: Pulse: 116 Respiratory Rate: 39 Laboratory Tests 12/15/20 00:10: White Blood Count 5.4 Blood Pressure 151 /105 Mean: 106 12/15/20 00:10: Lactic Acid Level 1.17 Laboratory Tests 12/15/20 00:10: Creatinine 0.66, INR Comment 0.9, Platelet Count 197, Total Bilirubin 0.2 Results/Orders Lab Results Laboratory Tests Test 12/15/20 00:10 12/15/20 00:33 Range/Units White Blood Count 5.4 4.3-11.0 10^3/uL Red Blood Count 3.61 L 3.80-5.11 10^6/uL Hemoglobin 7.5 L 11.5-16.0 g/dL Hematocrit 26 L 35-52 % Mean Corpuscular Volume 73 L 80-99 fL Mean Corpuscular Hemoglobin 21 L 25-34 pg Mean Corpuscular Hemoglobin Concent 29 L 32-36 g/dL Red Cell Distribution Width 17.2 H 10.0-14.5 % Platelet Count 197 130-400 10^3/uL Mean Platelet Volume 10.3 9.0-12.2 fL Immature Granulocyte % (Auto) 0 % Neutrophils (%) (Auto) 84 H 42-75 % Lymphocytes (%) (Auto) 13 12-44 % Monocytes (%) (Auto) 3 0-12 % Eosinophils (%) (Auto) 0 0-10 % Basophils (%) (Auto) 0 0-10 % Neutrophils # (Auto) 4.6 1.8-7.8 10^3/uL Lymphocytes # (Auto) 0.7 L 1.0-4.0 10^3/uL Monocytes # (Auto) 0.1 0.0-1.0 10^3/uL Eosinophils # (Auto) 0.0 0.0-0.3 10^3/uL Basophils # (Auto) 0.0 0.0-0.1 10^3/uL Immature Granulocyte # (Auto) 0.0 0.0-0.1 10^3/uL Prothrombin Time 12.7 12.2-14.7 SEC INR Comment 0.9 0.8-1.4 Activated Partial Thromboplast Time 32 24-35 SEC D-Dimer 0.90 H 0.00-0.49 UG/ML Sodium Level 139 135-145 MMOL/L Potassium Level 3.2 L 3.6-5.0 MMOL/L Chloride Level 101 98-107 MMOL/L Carbon Dioxide Level 26 21-32 MMOL/L Anion Gap 12 5-14 MMOL/L Blood Urea Nitrogen 7 7-18 MG/DL Creatinine 0.66 0.60-1.30 MG/DL Estimat Glomerular Filtration Rate 90 BUN/Creatinine Ratio 11 Glucose Level 103 70-105 MG/DL Lactic Acid Level 1.17 0.50-2.00 MMOL/L Calcium Level 8.0 L 8.5-10.1 MG/DL Corrected Calcium 8.3 L 8.5-10.1 MG/DL Total Bilirubin 0.2 0.1-1.0 MG/DL Aspartate Amino Transf (AST/SGOT) 30 5-34 U/L Alanine Aminotransferase (ALT/SGPT) 13 0-55 U/L Alkaline Phosphatase 78 40-136 U/L C-Reactive Protein High Sensitivity 1.57 H 0.00-0.50 MG/DL Total Protein 6.0 L 6.4-8.2 GM/DL Albumin 3.6 3.2-4.5 GM/DL Procalcitonin 0.08 <0.10 NG/ML Urine Color YELLOW Urine Clarity CLEAR Urine pH 6.0 5-9 Urine Specific Panacea 1.020 1.016-1.022 Urine Protein TRACE H NEGATIVE Urine Glucose (UA) NEGATIVE NEGATIVE Urine Ketones NEGATIVE NEGATIVE Urine Nitrite POSITIVE H NEGATIVE Urine Bilirubin NEGATIVE NEGATIVE Urine Urobilinogen 0.2 < = 1.0 MG/DL Urine Leukocyte Esterase NEGATIVE NEGATIVE Urine RBC (Auto) NEGATIVE NEGATIVE Urine RBC 0-2 /HPF Urine WBC 2-5 /HPF Urine Squamous Epithelial Cells 0-2 /HPF Urine Crystals NONE /LPF Urine Bacteria LARGE H /HPF Urine Casts NONE /LPF Urine Hyaline Casts 0-2 H /LPF Urine Mucus NEGATIVE /LPF Urine Culture Indicated CULTURE PENDING My Orders Orders - REJI MCCAULEY MD Dexamethasone Injection (Decadron Inje (12/15/20 00:30) Albuterol Pre-Mix Nebs (Rt) (Proventil (12/15/20 00:18) Albuterol/Ipra Inhalation Soln (Duoneb I (12/15/20 00:30) Svn Small Volume Nebulizer (12/15/20 00:18) Svn Small Volume Nebulizer (12/15/20 00:18) Lorazepam Injection (Ativan Injection) (12/15/20 00:30) Cbc With Automated Diff (12/15/20 00:19) Comprehensive Metabolic Panel (12/15/20 00:19) Blood Culture (12/15/20 00:19) Sputum Culture (12/15/20 00:19) Urinalysis (12/15/20 00:19) Urine Culture (12/15/20 00:19) Protime With Inr (12/15/20:19) Partial Thromboplastin Time (12/15/20 00:19) Chest 1 View, Ap/Pa Only (12/15/20 00:19) Ed Iv/Invasive Line Start (12/15/20 00:19) Ed Iv/Invasive Line Start (12/15/20 00:19) Vital Signs Adult Sepsis Patie Q15M (12/15/20 00:19) O2 (12/15/20 00:19) Remove Rings In Anticipation O (12/15/20 00:19) Lactic Acid Analyzer (12/15/20 00:19) Fibrin Degradation Products (12/15/20 00:19) Procalcitonin (Pct) (12/15/20 00:19) Hs C Reactive Protein (12/15/20 00:19) Acetaminophen Tablet (Tylenol Tablet) (12/15/20 00:30) Ceftriaxone (Rocephin) (12/15/20 01:00) Ct Angio Chest W (12/15/20 01:31) Iohexol Injection (Omnipaque 350 Mg/Ml 1 (12/15/20 02:45) Received Contrast (Hold Metformin- Contr (12/15/20 02:45) Sodium Chloride Flush (Catheter Flush Sy (12/15/20 02:45) Ns (Ivpb) (Sodium Chloride 0.9% Ivpb Bag (12/15/20 02:45) Medications Given in ED Current Medications Medications Dose Ordered Sig/Phani Route Start Time Stop Time Status Last Admin Dose Admin Acetaminophen 1,000 mg ONCE ONCE PO 8 00:30 8 00:31 DC 12/15/20 00:30 1,000 MG Albuterol/ Ipratropium 3 ml ONCE ONCE INH 12/15/20 00:30 8 00:31 DC 12/15/20 00:42 3 ML Ceftriaxone Sodium 1000 mg/ Sterile Water 10 ml @ 200 mls/hr ONCE ONCE IV 12/15/20 01:00 12/15/20 01:02 DC 12/15/20 01:32 200 MLS/HR Dexamethasone Sodium Phosphate 6 mg ONCE ONCE IV 12/15/20 00:30 12/15/20 00:31 DC 12/15/20 00:30 6 MG Lorazepam 0.25 mg ONCE ONCE IVP 12/15/20 00:30 12/15/20 00:31 DC 12/15/20 00:30 0.25 MG Vital Signs/I&O 12/15/20 12/15/20 12/15/20 12/15/20 00:10 00:42 02:00 02:53 Temp 39.7 38.0 Pulse 120 116 102 93 Resp 28 39 28 B/P (MAP) 170/74 (106) 97/81 Pulse Ox 97 99 92 O2 Delivery Nasal Cannula NIV Bilevel O2 Flow Rate 40.00 40.00 12/15/20 12/15/20 12/15/20 12/15/20 02:54 02:55 03:08 03:08 Pulse 98 111 92 Resp 32 B/P (MAP) 109/65 (79) 91/54 (66) Pulse Ox 92 96 93 94 O2 Delivery NIV Bilevel NIV Bilevel NIV Bilevel O2 Flow Rate 40.00 40.00 40.00 FiO2 40 12/15/20 12/15/20 12/15/20 12/15/20 03:09 03:15 03:20 03:30 Temp 38.0 37.1 Pulse 111 91 92 92 Resp 22 B/P (MAP) 85/53 (66) 106/65 (79) 93/64 (71) Pulse Ox 96 92 94 93 O2 Delivery NIV Bilevel NIV Bilevel NIV Bilevel O2 Flow Rate 40.00 40.00 40.00 FiO2 40 12/15/20 12/15/20 03:45 04:00 Pulse 92 87 B/P (MAP) 98/57 (70) 112/69 (84) Pulse Ox 93 95 O2 Delivery NIV Bilevel NIV Bilevel O2 Flow Rate 40.00 40.00 Capillary Refill : Less Than 3 Seconds Blood Pressure Mean: 106 Progress Note : Progress Note Patient continued on nasal cannula oxygen support and received an hour-long ne bulizer treatment along with BiPAP. She was stable with these treatments. I discussed CODE STATUS with her and she wishes to be full code. Antibiotic therapy with Rocephin was administered to treat urinary tract infection. Dexamethasone was given Diagnostic Imaging Diagonstic Imaging: CT Plain Films/CT/US/NM/MRI: chest Comments CT angiogram of the chest stat rad report reviewed. No pulmonary emboli. Groundglass opacities consistent with COVID-19. Departure Communication (Admissions) Time/Spoke to Admitting Phy: 01:50 Dr. Arredondo Impression Primary Impression: COVID-19 Additional Impressions: COPD exacerbation Respiratory distress UTI (urinary tract infection) Qualified Codes: N39.0 - Urinary tract infection, site not specified Hypokalemia Disposition: ADMITTED INPATIENT Condition: Improved Admissions Decision to Admit Reason: Admit from ER (General) Decision to Admit/Date: Dec 15, 2020 Time/Decision to Admit Time: 00:15 Departure-Patient Inst. Referrals: [facility] (PCP/Family) Primary Care Physician REJI MCCAULEY MD Dec 15, 2020 01:54
[2020-12-15] MEDS ORDERED: NS 100 ML (IVPB) BAG IV ONE (02:45)
[2020-12-15] MEDS ORDERED: HOLD METFORMIN - RECEIVED CONTRAST 20 ML VIAL IV SCH (02:45)
[2020-12-15] MEDS ORDERED: ACETAMINOPHEN 325 MG TABLET PO PRN (02:45)
[2020-12-15] MEDS ORDERED: guaiFENesin SYRUP 100 MG/5 ML 10 ML (ROBITUSSIN SF) PO PRN (02:45)
[2020-12-15] MEDS ORDERED: CATHETER FLUSH 10 ML SYR IV PRN (02:45)
[2020-12-15] MEDS ORDERED: RT-ALBUTEROL HFA 8.5 GM INHALER IH PRN (02:45)
[2020-12-15] MEDS ORDERED: IOHEXOL 350 MG/ML 100 ML (OMNIPAQUE 350) VIAL IV ONE (02:45)
[2020-12-15] MEDS ORDERED: ONDANSETRON 4 MG/2 ML (SDV) Z0FRAN IV PRN (02:45)
[2020-12-15] MEDS: RT-ALBUTEROL HFA 8.5 GM INHALER IH SCH ×4 (02:59→20:56)
[2020-12-15] MEDS: NS IV 1000 ML 1,000 ML IV SCH ×2 (03:23→15:51)
[2020-12-15] MEDS: POTASSIUM CL 10 MEQ/50 ML IVPB (PRE-MIX) IV SCH ×2 (03:26→05:12)
[2020-12-15] MEDS: ENOXAPARIN 40 MG/0.4 ML (LOVENOX) SYR SC SCH (03:27)
--- NOTE | 2020-12-15 06:20 | Diagnostic Imaging Report ---
PROCEDURE: CT angiography of the chest with contrast. TECHNIQUE: Multiple contiguous axial images were obtained through the chest after uneventful bolus administration of intravenous contrast. 3D reconstructed CTA MIP acquisitions were also performed. Auto Exposure Controls were utilized during the CT exam to meet ALARA standards for radiation dose reduction. INDICATION: Cough, shortness of breath and congestion. FINDINGS: There is emphysematous disease. There are scattered groundglass infiltrates in the right middle lobe and lower lobes suspect for atypical pneumonia possibly Covid. There is no pleural or pericardial fluid. There is no pneumothorax. There is no pathologically enlarged adenopathy in the chest. There are no filling defects seen within the pulmonary arteries to suggest pulmonary embolism. Thoracic aorta is normal in caliber and without evidence of dissection. Visualized intra-abdominal structures are unremarkable. There are degenerative changes in spine. IMPRESSION: COPD with scattered groundglass infiltrates and right middle lobe and lower lobe suspect for atypical pneumonia possibly Covid. No evidence of pulmonary embolism or aortic dissection. Dictated by: Dictated on workstation # [id number]
--- NOTE | 2020-12-15 06:52 | Diagnostic Imaging Report ---
INDICATION: COVID positive COMPARISON: 12/13/2020 TECHNIQUE: Single radiograph of the chest dated 12/15/2020. FINDINGS: The cardiac silhouette is within normal limits in size. No significant pulmonary vascular congestion. Background emphysematous changes are noted within the lungs. Mild patchy opacities are now identified within the right lung base. No significant pleural effusion. No pneumothorax. Postsurgical changes of the right shoulder. No acute osseous abnormality. [place] right curvature of the spine. IMPRESSION: Developing mild patchy infiltrate within the right lung base, which may relate to an infectious infiltrate such as pneumonia, including COVID. Radiographic followup is recommended to ensure clearance. Background chronic obstructive pulmonary disease. Dictated by: Dictated on workstation # [id number]
[2020-12-15] MEDS: UMECLIDINIUM BROMIDE (INCRUSE ELLIPTA) 7'S IH SCH (10:07)
--- NOTE | 2020-12-15 11:20 | Tele-ICU Consult ---
History of Present Illness History of Present Illness Date Seen by Provider: Dec 15, 2020 Time Seen by Provider: 11:00 Date of Admission Patient acknowledged, consented, and participated in this virtual visit which was conducted using real time audio/video. Thank you for asking us to see this patient for respiratory insufficiency and distress. HPC: Recent events: Admitted w Covid, feels better today. PMH: COPD/Home O2 2LPM. SH: smoking history Quit FH: Non-contributory. Dad w lung CA. ROS: limited by patient's clinical condition, but no sx other than HPI. No cough currently. PE: VSS O2 97% sat on 8LPM. Off BiPAP. HEENT: No obvious masses, adenopathy or JVD. Chest: clear to auscultation. CV: RRR S1 S2 No murmur or added sounds. Abd: Non-tender. Bowel sounds . : Unremarkable. . 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 No obvious focal findings. Extremities: No edema. Capillary refill < 3 seconds. Skin: unremarkable. Results: Decreased K 3.2, Hb 7.5. CT chest w B GGOs. A/P: Respiratory insufficiency/distress: Cont Dex ., duonebs, Rocephin and Jennifer. Available chart/ vitals / labs / Images reviewed. Video assessment done using teleICU camera, rest of exam as per RN. Monitor for increasing oxygenation needs and/or need for ICU transfer. Critical Care: critically ill patient. Discussed with RN. Asked RN to reach out to eICU if any questions or concerns later. Time spent with patient/coordination of care with other health professionals (mins): 15 Allergies and Home Medications Allergies Coded Allergies: oxycodone HCl (Verified Adverse Reaction, Severe, BLACK OUT, 07/18/20) morphine (Verified Adverse Reaction, Intermediate, Blackout, 07/18/20) Home Medications Acetaminophen 325 Mg Tablet, 650 MG PO Q6H PRN for PAIN-MILD (1-4), (Reported) Acyclovir 30 Gm Oint, 30 GM TP Q3-4 HOURS Prescribed by: DAWSON ALVARADO on 10/19/202017 Albuterol Sulfate 18 Gm Hfa.aer.ad, 2 PUFF INH Q4H PRN for SHORTNESS OF BREATH, (Reported) Dexamethasone 6 Mg Tablet, 6 MG PO DAILY Prescribed by: YASMANI JIMENEZ on 12/13/20 1728 Doxycycline Hyclate 100 Mg Tablet, 100 MG PO BID@07,17 Prescribed by: JAGDEEP HAYNES on 10/17/20 1246 Fluticasone/Umeclidin/Vilanter 1 Each Blst.w.dev, 1 PUFF INH DAILY, (Reported) Hydrocodone/Acetaminophen 1 Each Tablet, 1-2 EACH PO Q4-6 HOURS PRN for PAIN Prescribed by: DAWSON ALVARADO on 10/19/202017 Lisinopril 20 Mg Tablet, 20 MG PO DAILY@0900 Prescribed by: JAGDEEP HAYNES on 10/17/20 1246 Loratadine 10 Mg Tablet, 10 MG PO DAILY, (Reported) Montelukast Sodium 10 Mg Tablet, 10 MG PO DAILY, (Reported) Ondansetron 8 Mg Tab.rapdis, 8 MG PO Q6H Prescribed by: DAWSON ALVARADO on 10/19/202017 Prednisone 10 Mg Tab.ds.pk, 10 MG PO DAILY Take 6 tabs(60mg)daily,decrease by 1 tab(10MG)daily. Prescribed by: JAGDEEP HAYNES on 10/17/20 1246 Pregabalin 75 Mg Capsule, 75 MG PO TID Prescribed by: DAWSON ALVARADO on 10/19/202017 Valacyclovir HCl 1,000 Mg Tablet, 1,000 MG PO TIDAC Prescribed by: DAWSON ALVARADO on 10/19/202017 Past Medical/Social/Family Hx Patient Social History Tobacco Use?: No Tobacco type used: Cigarettes Smoking Status: Former Smoker Smokeless Tobacco Frequency: Never a User Use of E-Cig and/or Vaping dev: No Additional E-Cig or Vaping: STOPPED SMOKING 2-3PPD 3 WEEKS AGO E-Cig and/or Vaping Freq: Never a User Substance use?: Yes Substance type: Methamphetamine FORMER SMOKER, DENIES IV USE Alcohol Use?: No Pt stated abuse/neglect: No Immunizations Up To Date Influenza Vaccine Up-to-Date: No; Not Current Tetanus Booster (TDap): Unknown Hepatitis B: Yes Date of Pneumonia Vaccine: May 17, 2019 Current Status status: No status: No Advance Directives: No Communicates: Verbally Primary Language: [place] Preferred Spoken Language: [place] Is interpretation needed?: No Sensory deficits: Vision impairment Past Medical History 1. COPD 2. tobbaco dependence 3. degenerative disc disease of the lumbar spine 4. osteoarthritis of the hips/hands 5. chronic pain on narcotics 6. hx of breast cancer diagnosed 2004 s/p left lumpectomy 7. hx of Non-Hodgkins lymphoma diagnosed 2004 s/p chemo/radiation -negative PET scan as of 11/2008. -followed by Dr Houston 8. hyperlipidemia 9. anxiety 10. hypothyroidism 11. osteoporosis Past surgical history: 1. left breast lumpectomy 2004 2. appendectomy 3. rotator cuff surgery 2009 4. carpal tunnel surgery 5. tubal ligation 6. hiatal hernia repair Family Medical History Family Hx: SOCIAL HISTORY: -ETOH--HISTORY OF ABUSE, CLAIMS NO RECENT USE -DRUGS--LONG HISTORY OF METH USE--DENIES IV USE, STATES SHE SMOKES IT, ALSO THC USE -SMOKES 2-3 PPD SINCE AGE 9 PMH: -LEFT BREAST CANCER 2003--S/P LUMPECTOMY, CHEMO AND RADIATION; 4 MONTHS LATER, DEVELOPED NON-HODGKIN'S LYMPOMA--S/P CHEMOTHERAPY PSH: -BILATERAL CARPAL TUNNEL -HAND SURGERY -RIGHT SHOULDER SURGERY. -HIATAL HERNIA REPAIR -LEFT BREAST LUMPECTOMY -BTL -APPENDECTOMY LONG HISTORY OF EXTREME NON-COMPLIANCE IN ALL ASPECTS OF CARE PT HAS REPEATEDLY REFUSED BIPAP/CPAP AND VENTILATOR/INTUBATION ON PREVIOUS VISITS Review of Systems Constitutional: see HPI EENTM: see HPI Respiratory: see HPI Gastrointestinal: see HPI Genitourinary: see HPI Musculoskeletal: see HPI Skin: see HPI Psychiatric/Neurological: See HPI All Other Systems Reviewed Negative Unless Noted: Yes Sepsis Event Evaluation Height, Weight, BMI Height: 5'2.00" Weight: 117lbs. 0.0oz. 53.781200ab; 23.61 BMI Method:Stated Exam Exam Patient acknowledged, consented, and participated in this virtual visit which was conducted using real time audio/video Vital Signs Date Time Temp Pulse Resp B/P (MAP) Pulse Ox O2 Delivery O2 Flow Rate FiO2 12/15/20 10:09 98 High Flow N/C 8.00 12/15/20 10:07 98 High Flow N/C 8.00 12/15/20 08:00 93 High Flow N/C 8.00 12/15/20 07:49 36.0 80 22 113/72 (86) 80 12/15/20 07:07 81 21 96 40.00 12/15/20 07:00 80 12/15/20 04:00 87 112/69 (84) 95 NIV Bilevel 40.00 12/15/20 03:45 92 98/57 (70) 93 NIV Bilevel 40.00 12/15/20 03:30 92 93/64 (71) 93 NIV Bilevel 40.00 12/15/20 03:20 37.1 92 22 106/65 (79) 94 NIV Bilevel 40.00 12/15/20 03:15 91 85/53 (66) 92 NIV Bilevel 40.00 12/15/20 03:09 38.0 111 96 40 12/15/20 03:08 92 91/54 (66) 94 NIV Bilevel 40.00 12/15/20 03:08 93 NIV Bilevel 40 12/15/20 02:55 111 32 96 40.00 12/15/20 02:54 98 109/65 (79) 92 NIV Bilevel 40.00 12/15/20 02:53 93 12/15/20 02:00 38.0 102 28 97/81 92 NIV Bilevel 40.00 12/15/20 00:42 116 39 99 40.00 12/15/20 00:10 39.7 120 28 170/74 (106) 97 Nasal Cannula I & O 12/15/20 07:00 Intake Total 10 ml Balance 10 ml Height & Weight Height: 5'2.00" Weight: 117lbs. 0.0oz. 53.959234nf; 23.61 BMI Method:Stated General Appearance: WD/WN, Moderate Distress HEENT: PERRL/EOMI, Normal ENT Inspection Neck: Normal Inspection Respiratory: No Crackles; Respiratory Distress, Wheezing Cardiovascular: Regular Rate, Rhythm, No Edema, No Gallop, No JVD, No Murmur, Normal Peripheral Pulses Capillary Refill: Less Than 3 Seconds Extremity: Normal Inspection, No Pedal Edema Neurologic/Psychiatric: Alert, Oriented x3, No Motor/Sensory Deficits, Normal Mood/Affect, him tech II-XII Norm as Tested Results Lab Laboratory Tests 12/15/20 00:10 Assessment/Plan Assessment/Plan see free text Critical Care: Critically Ill Patient Time spent on discussion(mins): 0 GALINDO LOVE MD Dec 15, 2020 11:20
[2020-12-15] MEDS ORDERED: LEVO175T5 PO (11:27)
--- NOTE | 2020-12-15 20:20 | History & Physical ---
HPI History of Present Illness: 65 yo F with COPD that presents with worsening shortness of breath and tested positive for COVID. Patient states that she started feeling bad on Monday and she went to the ER and was sent home. She continued to get worse and then presented to the ER last night. She is on continuous oxygen as baseline @ 2-3 LPM now requiring 8 LPM this AM. States that she feels better this AM but still short of breath with exertion. States that she quit smoking about 6 weeks ago. She was smoking 2-4 ppd since her 20s. Source: patient Exam Limitations: no limitations Date seen by provider: Dec 15, 2020 Time Seen by Provider: 09:15 Attending Physician Oliva Arredondo MD [facility] Consult Date of Admission Dec 15, 2020 at 01:58 Home Medications Home Medications Reviewed patient Home Medication Reconciliation performed by pharmacy medication reconciliations broadcast maintenance technician and/or nursing. Patients Allergies have been reviewed. Allergies Coded Allergies: oxycodone HCl (Verified Adverse Reaction, Severe, BLACK OUT, 07/18/20) morphine (Verified Adverse Reaction, Intermediate, Blackout, 07/18/20) ROL-Ghdknp-Tirktf Hx Patient Social History Living Status: Lives at home alone Drug of Choice: METH, THC, Smoking Status: Former Smoker 2nd Hand Smoke Exposure: Yes Recent Hopitalizations: Yes Alcohol Use?: No Substance type: Methamphetamine Tobacco type used: Cigarettes Have you traveled recently?: No Immunizations Up To Date Tetanus Booster (TDap): Less than 5yrs Date of Pneumonia Vaccine: May 17, 2019 Date of Influenza Vaccine: Feb 13, 2020 Past Medical History 1. COPD 2. tobbaco dependence 3. degenerative disc disease of the lumbar spine 4. osteoarthritis of the hips/hands 5. chronic pain on narcotics 6. hx of breast cancer diagnosed 2004 s/p left lumpectomy 7. hx of Non-Hodgkins lymphoma diagnosed 2004 s/p chemo/radiation -negative PET scan as of 11/2008. -followed by Dr Houston 8. hyperlipidemia 9. anxiety 10. hypothyroidism 11. osteoporosis Past surgical history: 1. left breast lumpectomy 2004 2. appendectomy 3. rotator cuff surgery 2009 4. carpal tunnel surgery 5. tubal ligation 6. hiatal hernia repair Family Medical History Other Significan Family Hx: SOCIAL HISTORY: -ETOH--HISTORY OF ABUSE, CLAIMS NO RECENT USE -DRUGS--LONG HISTORY OF METH USE--DENIES IV USE, STATES SHE SMOKES IT, ALSO THC USE -SMOKES 2-3 PPD SINCE AGE 9 PMH: -LEFT BREAST CANCER 2003--S/P LUMPECTOMY, CHEMO AND RADIATION; 4 MONTHS LATER, DEVELOPED NON-HODGKIN'S LYMPOMA--S/P CHEMOTHERAPY PSH: -BILATERAL CARPAL TUNNEL -HAND SURGERY -RIGHT SHOULDER SURGERY. -HIATAL HERNIA REPAIR -LEFT BREAST LUMPECTOMY -BTL -APPENDECTOMY LONG HISTORY OF EXTREME NON-COMPLIANCE IN ALL ASPECTS OF CARE PT HAS REPEATEDLY REFUSED BIPAP/CPAP AND VENTILATOR/INTUBATION ON PREVIOUS VISITS Family History: Neoplasm 19 FATHER (LUNG) 19 MOTHER G8 SISTER (OVARIAN) Review of Systems (CHC) Constitutional: fever, malaise, weakness EENTM: no symptoms reported; No mouth pain, No nose congestion, No nose pain Respiratory: cough, dyspnea on exertion; No orthopnea; short of breath Cardiovascular: no symptoms reported; No chest pain, No edema, No palpitations Gastrointestinal: no symptoms reported; No abdominal pain, No constipation, No diarrhea, No nausea, No vomiting Genitourinary: no symptoms reported; No dysuria, No frequency, No hematuria : No Musculoskeletal: no symptoms reported; No back pain, No joint pain, No muscle pain Skin: no symptoms reported; No lesions, No rash Psychiatric/Neurological: Weakness Reviewed Test Results Reviewed Test Results Lab Laboratory Tests Test 12/15/20 00:10 12/15/20 00:33 Range/Units White Blood Count 5.4 4.3-11.0 10^3/uL Red Blood Count 3.61 L 3.80-5.11 10^6/uL Hemoglobin 7.5 L 11.5-16.0 g/dL Hematocrit 26 L 35-52 % Mean Corpuscular Volume 73 L 80-99 fL Mean Corpuscular Hemoglobin 21 L 25-34 pg Mean Corpuscular Hemoglobin Concent 29 L 32-36 g/dL Red Cell Distribution Width 17.2 H 10.0-14.5 % Platelet Count 197 130-400 10^3/uL Mean Platelet Volume 10.3 9.0-12.2 fL Immature Granulocyte % (Auto) 0 % Neutrophils (%) (Auto) 84 H 42-75 % Lymphocytes (%) (Auto) 13 12-44 % Monocytes (%) (Auto) 3 0-12 % Eosinophils (%) (Auto) 0 0-10 % Basophils (%) (Auto) 0 0-10 % Neutrophils # (Auto) 4.6 1.8-7.8 10^3/uL Lymphocytes # (Auto) 0.7 L 1.0-4.0 10^3/uL Monocytes # (Auto) 0.1 0.0-1.0 10^3/uL Eosinophils # (Auto) 0.0 0.0-0.3 10^3/uL Basophils # (Auto) 0.0 0.0-0.1 10^3/uL Immature Granulocyte # (Auto) 0.0 0.0-0.1 10^3/uL Prothrombin Time 12.7 12.2-14.7 SEC INR Comment 0.9 0.8-1.4 Activated Partial Thromboplast Time 32 24-35 SEC D-Dimer 0.90 H 0.00-0.49 UG/ML Sodium Level 139 135-145 MMOL/L Potassium Level 3.2 L 3.6-5.0 MMOL/L Chloride Level 101 98-107 MMOL/L Carbon Dioxide Level 26 21-32 MMOL/L Anion Gap 12 5-14 MMOL/L Blood Urea Nitrogen 7 7-18 MG/DL Creatinine 0.66 0.60-1.30 MG/DL Estimat Glomerular Filtration Rate 90 BUN/Creatinine Ratio 11 Glucose Level 103 70-105 MG/DL Lactic Acid Level 1.17 0.50-2.00 MMOL/L Calcium Level 8.0 L 8.5-10.1 MG/DL Corrected Calcium 8.3 L 8.5-10.1 MG/DL Total Bilirubin 0.2 0.1-1.0 MG/DL Aspartate Amino Transf (AST/SGOT) 30 5-34 U/L Alanine Aminotransferase (ALT/SGPT) 13 0-55 U/L Alkaline Phosphatase 78 40-136 U/L C-Reactive Protein High Sensitivity 1.57 H 0.00-0.50 MG/DL Total Protein 6.0 L 6.4-8.2 GM/DL Albumin 3.6 3.2-4.5 GM/DL Procalcitonin 0.08 <0.10 NG/ML Urine Color YELLOW Urine Clarity CLEAR Urine pH 6.0 5-9 Urine Specific [place] 1.020 1.016-1.022 Urine Protein TRACE H NEGATIVE Urine Glucose (UA) NEGATIVE NEGATIVE Urine Ketones NEGATIVE NEGATIVE Urine Nitrite POSITIVE H NEGATIVE Urine Bilirubin NEGATIVE NEGATIVE Urine Urobilinogen 0.2 < = 1.0 MG/DL Urine Leukocyte Esterase NEGATIVE NEGATIVE Urine RBC (Auto) NEGATIVE NEGATIVE Urine RBC 0-2 /HPF Urine WBC 2-5 /HPF Urine Squamous Epithelial Cells 0-2 /HPF Urine Crystals NONE /LPF Urine Bacteria LARGE H /HPF Urine Casts NONE /LPF Urine Hyaline Casts 0-2 H /LPF Urine Mucus NEGATIVE /LPF Urine Culture Indicated CULTURE PENDING Physical Exam-(CHC) Physical Exam Vital Signs VS - Last 72 Hours, by Label 12/15/20 12/15/20 12/15/20 12/15/20 00:10 00:42 02:00 02:53 Temp 39.7 38.0 Pulse 120 116 102 93 Resp 28 39 28 B/P (MAP) 170/74 (106) 97/81 Pulse Ox 97 99 92 O2 Delivery Nasal Cannula NIV Bilevel O2 Flow Rate 40.00 40.00 12/15/20 12/15/20 12/15/20 12/15/20 02:54 02:55 03:08 03:08 Pulse 98 111 92 Resp 32 B/P (MAP) 109/65 (79) 91/54 (66) Pulse Ox 92 96 93 94 O2 Delivery NIV Bilevel NIV Bilevel NIV Bilevel O2 Flow Rate 40.00 40.00 40.00 FiO2 40 12/15/20 12/15/20 12/15/20 12/15/20 03:09 03:15 03:20 03:30 Temp 38.0 37.1 Pulse 111 91 92 92 Resp 22 B/P (MAP) 85/53 (66) 106/65 (79) 93/64 (71) Pulse Ox 96 92 94 93 O2 Delivery NIV Bilevel NIV Bilevel NIV Bilevel O2 Flow Rate 40.00 40.00 40.00 FiO2 40 12/15/20 12/15/20 12/15/20 12/15/20 03:45 04:00 07:00 07:07 Pulse 92 87 80 81 Resp 21 B/P (MAP) 98/57 (70) 112/69 (84) Pulse Ox 93 95 96 O2 Delivery NIV Bilevel NIV Bilevel O2 Flow Rate 40.00 40.00 40.00 812/15/20 12/15/20 12/15/20 07:49 08:00 10:07 10:09 Temp 36.0 Pulse 80 Resp 22 B/P (MAP) 113/72 (86) Pulse Ox 80 93 98 98 O2 Delivery High Flow N/C High Flow N/C High Flow N/C O2 Flow Rate 8.00 8.00 8.00 12/15/20 12/15/20 12/15/20 12/15/20 11:45 12:34 13:00 13:59 Temp 36.7 Pulse 90 89 Resp 24 B/P (MAP) 126/71 (89) Pulse Ox 98 95 96 O2 Delivery High Flow N/C High Flow N/C High Flow N/C O2 Flow Rate 8.00 8.00 6.00 12/15/20 12/15/20 15:50 16:57 Temp 36.7 Pulse 96 Resp 26 Pulse Ox 94 95 O2 Delivery High Flow N/C High Flow N/C O2 Flow Rate 6.00 8.00 Capillary Refill : Less Than 3 Seconds General Appearance: moderate distress (with any activity, some conversational dyspnea) Neck: non-tender, full range of motion, supple Respiratory: chest non-tender, respiratory distress, decreased breath sounds, wheezing Cardiovascular: normal peripheral pulses, regular rate, rhythm, no edema, no murmur Gastrointestinal: normal bowel sounds, non tender, soft, no organomegaly Back: no CVA tenderness, no vertebral tenderness Extremities: normal range of motion, non-tender, no pedal edema, no calf tenderness, normal capillary refill Neurologic/Psychiatric: filter operator II-XII nml as tested, no motor/sensory deficits, alert, normal mood/affect, oriented x 3 Skin: normal color, warm/dry Lymphatic: no adenopathy Assessment/Plan Assessment/Plan Admission Status: Inpatient Order (span 2 midnights) Reason for Inpatient Admission: Requiring increased oxygen and high risk of decompensation with covid (1) Acute respiratory failure due to COVID-19 Status: Acute Assessment & Plan: - Steroids, MAT protocol, IV antibiotics, Lovenox (2) COPD exacerbation Status: Acute (3) UTI (urinary tract infection) Status: Acute Assessment & Plan: - Culture pending, IV antbiotics Qualifiers: Qualified Codes: N39.0 - Urinary tract infection, site not specified (4) Hypothyroidism Status: Chronic Assessment & Plan: - Continue home meds (5) Hypertension Status: Chronic (6) Hypokalemia Status: Acute Assessment & Plan: - Replace and repeat BMP in AM (7) Tobacco abuse Status: Chronic Assessment & Plan: - Encouraged continued cessation OLIVA ARREDONDO MD Dec 15, 2020 20:20
[2020-12-15] MEDS: cefTRIAXone 1,000 MG/SWFI 10 ML IV PUSH IV SCH ×2 (21:32)
[2020-12-15] MEDS: LORazepam INJ 2 MG/ML (ATIVAN) VIAL IVP PRN (21:34)
[2020-12-16] VITALS (23 sets, daily range): BP systolic 57–186; BP diastolic 34–95
[2020-12-16] MEDS: RT-ALBUTEROL HFA 8.5 GM INHALER IH SCH ×4 (03:04→21:15)
[2020-12-16] MEDS: ENOXAPARIN 40 MG/0.4 ML (LOVENOX) SYR SC SCH (03:40)
[2020-12-16] MEDS: NS IV 1000 ML 1,000 ML IV SCH ×3 (05:29→16:09)
[2020-12-16] MEDS: LORazepam INJ 2 MG/ML (ATIVAN) VIAL IVP PRN ×3 (06:32→21:15)
--- NOTE | 2020-12-16 07:07 | Diagnostic Imaging Report ---
INDICATION: Follow-up Covid, shortness of air. COMPARISON STUDY: Chest from yesterday. FINDINGS: Frontal view of the chest demonstrates increase in bilateral pulmonary infiltrates. Heart size is stable. No effusions are present. IMPRESSION: There are increasing bilateral pulmonary infiltrates. Dictated by: Dictated on workstation # [id number]
[2020-12-16 07:57] LABS: BASOPHILS % (AUTO) 0 % (0-10); LYMPHOCYTES # (AUTO) 0.8 10^3/uL (1.0-4.0); MONOCYTES # (AUTO) 0.2 10^3/uL (0.0-1.0)
[2020-12-16 07:58] LABS: EOSINOPHILS % (AUTO) 0 % (0-10); HEMATOCRIT 25 % (35-52); LYMPHOCYTES % (AUTO) 14 % (12-44); MEAN CORPUSCULAR HGB CONC 27 g/dL (32-36); MEAN CORPUSCULAR VOLUME 75 fL (80-99); MEAN PLATELET VOLUME 12.1 fL (9.0-12.2); MONOCYTES % (AUTO) 3 % (0-12); NEUTROPHILS # (AUTO) 4.4 10^3/uL (1.8-7.8); NEUTROPHILS % (AUTO) 82 % (42-75); PLATELET COUNT 163 10^3/uL (130-400); WHITE BLOOD COUNT 5.4 10^3/uL (4.3-11.0)
[2020-12-16 08:02] LABS: HEMOGLOBIN 6.8 g/dL (11.5-16.0); MEAN CORPUSCULAR HEMOGLOBIN 20 pg (25-34)
[2020-12-16 08:10] LABS: ALBUMIN 2.9 GM/DL (3.2-4.5); BILIRUBIN,TOTAL 0.1 MG/DL (0.1-1.0); CALCIUM 7.6 MG/DL (8.5-10.1); CREATININE SERUM 0.53 MG/DL (0.60-1.30); POTASSIUM 3.5 MMOL/L (3.6-5.0); TOTAL PROTEIN 5.3 GM/DL (6.4-8.2)
[2020-12-16] MEDS ORDERED: morphine INJ 4 MG/ML 1 ML (VIAL/SYRINGE) IVP PRN (08:15)
[2020-12-16] MEDS ORDERED: LORazepam INJ 2 MG/ML (ATIVAN) VIAL IVP ONE (08:15)
[2020-12-16] MEDS ORDERED: LEVOTHYROXINE 100 MCG (LEVOTHROID) TAB PO SCH (09:00)
[2020-12-16] MEDS ORDERED: LEVOTHYROXINE 75 MCG (LEVOTHROID) TABLET PO SCH (09:00)
--- NOTE | 2020-12-16 09:21 | Tele-ICU Progress Note ---
Subjective Date Seen by a Provider: Dec 16, 2020 Time Seen by a Provider: 11:30 Sepsis Event Evaluation Height, Weight, BMI Height: 5'2.00" Weight: 117lbs. 0.0oz. 53.853082wj; 23.61 BMI Method:Stated Focused Exam Lactate Level 12/15/20 00:10: Lactic Acid Level 1.17 Exam Exam Patient acknowledged, consented, and participated in this virtual visit which was conducted using real time audio/video Vital Signs Date Time Temp Pulse Resp B/P (MAP) Pulse Ox O2 Delivery O2 Flow Rate FiO2 12/16/20 07:07 147 39 98 60.00 12/16/20 06:34 136 12/16/20 06:00 101 146/95 (112) 94 High Flow N/C 6.00 12/16/20 05:29 98 136/88 (104) 95 High Flow N/C 6.00 12/16/20 04:00 95 High Flow N/C 6.00 12/16/20 03:04 95 High Flow N/C 6.00 12/16/20 03:00 89 140/82 (101) 96 High Flow N/C 6.00 12/16/20 01:00 91 12/16/20 00:00 95 High Flow N/C 8.00 12/16/20 00:00 91 143/87 (105) 95 High Flow N/C 6.00 12/15/20 20:56 95 High Flow N/C 6.00 12/15/20 20:45 36.6 12/15/20 20:00 95 High Flow N/C 8.00 12/15/20 20:00 89 127/70 (89) 99 High Flow N/C 6.00 12/15/20 19:00 93 12/15/20 16:57 95 High Flow N/C 8.00 12/15/20 15:50 36.7 96 26 94 High Flow N/C 6.00 12/15/20 13:59 96 High Flow N/C 6.00 12/15/20 13:00 89 12/15/20 12:34 95 High Flow N/C 8.00 12/15/20 11:45 36.7 90 24 126/71 (89) 98 High Flow N/C 8.00 12/15/20 10:09 98 High Flow N/C 8.00 12/15/20 10:07 98 High Flow N/C 8.00 I & O 12/16/20 07:00 Intake Total 1770 ml Output Total 300 ml Balance 1470 ml Height & Weight Height: 5'2.00" Weight: 117lbs. 0.0oz. 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
[2020-12-16 09:31] LABS: ABG BASE EXCESS -0.3 MMOL/L (-2.5-2.5); ABG OXYGEN SATURATION 98 % (94-100); ABG PCO2 58 MMHG (35-45); ABG PO2 94 MMHG (79-93); ABG TCO2 27.7 MMOL/L (21.0-31.0)
[2020-12-16 09:34] LABS: ABG PH 7.27 (7.37-7.43); ALLENS TEST YES-POS; INSPIRED O2 60%; PATIENT TEMP 36.6; VENTILATOR NO
[2020-12-16] MEDS ORDERED: PROPOFOL DRIP (ICU) 100 ML IV ONE (10:10)
[2020-12-16] MEDS ORDERED: MIDAZOLAM 2 MG/2 ML (VERSED) VIAL ONE (10:52)
[2020-12-16] MEDS ORDERED: fentaNYL DRIP PRE-MIX 250 ML IV ONE (10:52)
[2020-12-16] MEDS ORDERED: NS IV 500 ML 500 ML ONE (10:52)
[2020-12-16] MEDS ORDERED: ROCURONIUM 10 MG/ML 5 ML SYRINGE IV ONE (10:55)
[2020-12-16] MEDS ORDERED: fentaNYL DRIP PRE-MIX 250 ML IV SCH (11:00)
--- NOTE | 2020-12-16 11:10 | Physical Therapy Progress Note ---
Therapy Progress Note Orders received for PT evaluation. Patient is currently intubated and sedated. Will monitor and start when appropriate. SONIA CRESPO PT Dec 16, 2020 11:10
--- NOTE | 2020-12-16 11:28 | Occ Therapy Progress Note ---
Therapy Progress Note Pt is currently intubated and sedated. OT will continue to monitor pt and initiate tx when pt is more medically stable and able to actively participate in skilled therapy. HANSEL THURSTON OT Dec 16, 2020 11:28
--- NOTE | 2020-12-16 11:29 | Diagnostic Imaging Report ---
INDICATION: Intubation. TIME OF EXAM: 11:01 AM Comparison is made to prior chest earlier same day. ET tube has tip above the [place]. NG tube passes below the diaphragm. There appear to be some infiltrates in the lung bases bilaterally. There may be some minimal peripheral based infiltrate in the left upper lobe as well. There is biapical pleural parenchymal scarring. No effusion is seen. There is no pneumothorax. IMPRESSION: 1. Satisfactory endotracheal tube and nasogastric tube placement. 2. Bilateral pulmonary infiltrates. Dictated by: Dictated on workstation # [id number]
[2020-12-16] MEDS: NS IV 500 ML 500 ML IV SCH (11:30)
--- NOTE | 2020-12-16 11:55 | Anesthesia-Procedure Note ---
Procedures/Interventions Procedure Start/Stop/Diagnosis Date of Procedure: Dec 16, 2020 Start Time: 10:00 Stop Time: 11:15 Intubation RSI: Yes Intubation Method: orotracheal Videoscope used: Yes Grade View: 1 Medications: Propofol (150), Succinylcholine (75) Mask Ventilation: positive Positive End Tide CO2: Yes Breath Sounds after Intubation: bilateral-equal Intubated with ease: Yes Intubation Complications: no complications Post Intubation Xray-done: Yes Arterial Line Arterial Line Catheter: 20G Type: Radial Location: Left Procedure: prepped, draped in sterile fashion, 1% lidocaine used to numb region, good wave-form was obtained, patient tolerated procedure well, no immediate complications, post procedure area cleaned, post procedure dressing applied ABHINAV BARRON CRNA Dec 16, 2020 11:55
[2020-12-16] MEDS ORDERED: NS IV 500 ML 500 ML IV SCH (12:00)
[2020-12-16] MEDS: PROPOFOL DRIP (ICU) 100 ML IV SCH ×3 (12:01→16:08)
--- NOTE | 2020-12-16 12:15 | Consultation-Cardiology ---
HPI-Cardiology Cardiology Consultation Date of Consultation 12/16/20 Date of Admission Time Seen by Provider: 09:15 Indication: Sinus tachycardia HPI Patient is a 65 y/o female with COPD, HTN. Presented to the ER with increased dysnea. Admitted for acute respiratory failure secondary to COVID-19. Currently patient is intubated. Noted to be tachycardic with HR in the 120's. Home Medications & Allergies Allergies: Coded Allergies: oxycodone HCl (Verified Adverse Reaction, Severe, BLACK OUT, 07/18/20) morphine (Verified Adverse Reaction, Intermediate, Blackout, 07/18/20) Home Medication List Reviewed: Yes RMI-[id number]-Vwrdrp Hx Patient Social History Living Status: Lives at home alone Drug of Choice: METH, THC, Smoking Status: Former Smoker Type Used: Cigarettes 2nd Hand Smoke Exposure: Yes Recent Hopitalizations: Yes Have you traveled recently?: No Alcohol Use?: No Substance type: Methamphetamine Immunizations Up To Date Tetanus Booster (TDap): Less than 5yrs Date of Pneumonia Vaccine: May 17, 2019 Date of Influenza Vaccine: Feb 13, 2020 Past Medical History COPD Family Medical History Family History: Neoplasm 19 FATHER (LUNG) 19 MOTHER G8 SISTER (OVARIAN) Review of Systems-General Review of Systems ROS-Unable to Obtain: patient is intubated, unable to obtain ROS Constitutional: other (Sedated and intubated, unable to provide review of system) : No All Other Systems Reviewed Negative Unless Noted: Yes Reviewed Test Results Reviewed Test Results Lab Laboratory Tests 12/16/20 05:05: White Blood Count 5.4, Red Blood Count 3.32L, Hemoglobin 6.8*L, Hematocrit 25L, Mean Corpuscular Volume 75L, Mean Corpuscular Hemoglobin 20L, Mean Corpuscular Hemoglobin Concent 27L, Red Cell Distribution Width 17.7H, Platelet Count 163, Mean Platelet Volume 12.1, Immature Granulocyte % (Auto) 1, Neutrophils (%) (Auto) 82H, Lymphocytes (%) (Auto) 14, Monocytes (%) (Auto) 3, Eosinophils (%) (Auto) 0, Basophils (%) (Auto) 0, Neutrophils # (Auto) 4.4, Lymphocytes # (Auto) 0.8L, Monocytes # (Auto) 0.2, Eosinophils # (Auto) 0.0, Basophils # (Auto) 0.0, Immature Granulocyte # (Auto) 0.0, Percent Immature Platelet Fraction 7.0, Sodium Level 140, Potassium Level 3.5L, Chloride Level 108H, Carbon Dioxide Level 25, Anion Gap 7, Blood Urea Nitrogen 9, Creatinine 0.53L, Estimat Glomerular Filtration Rate 116, BUN/Creatinine Ratio 17, Glucose Level 85, Calcium Level 7.6L, Corrected Calcium 8.5, Total Bilirubin 0.1, Aspartate Amino Transf (AST/SGOT) 29, Alanine Aminotransferase (ALT/SGPT) 15, Alkaline Phosphatase 67, Total Protein 5.3L, Albumin 2.9L, Triglycerides Level 121, Procalcitonin 0.08 12/16/20 08:11: D-Dimer 1.12H 12/16/20 09:27: Blood Gas Puncture Site R RAD, Blood Gas Patient Temperature 36.6, Arterial Blood pH 7.27*L, Arterial Blood Partial Pressure CO2 58H, Arterial Blood Partial Pressure O2 94H, Arterial Blood HCO3 26, Arterial Blood Total CO2 27.7, Arterial Blood Oxygen Saturation 98, Arterial Blood Base Excess -0.3, Robby Test YES-POS, Blood Gas Ventilator Setting NO, Blood Gas Inspired Oxygen 60% 12/16/20 11:39: Glucometer 118H Microbiology 12/15/20 Urine Culture - Preliminary, Resulted Gram Negative Kenny 12/15/20 Blood Culture - Preliminary, Resulted No growth ECG Impression ECG Initial ECG Rhythm: S.Tach Physical Exam Physical Exam Vital Signs Vital Signs - First Documented 12/15/20 12/15/20 12/15/20 00:10 00:42 03:08 Temp 39.7 Pulse 120 Resp 28 B/P (MAP) 170/74 (106) Pulse Ox 97 O2 Delivery Nasal Cannula O2 Flow Rate 40.00 FiO2 40 Capillary Refill : Less Than 3 Seconds Height, Weight, BMI Height: 5'2.00" Weight: 117lbs. 0.0oz. 53.661530se; 23.61 BMI Method:Stated General Appearance: Other (sedated and intubated) A/P-Cardiology Admission Diagnosis COVID-19 Acute respiratory failure COPD Sinus tachycardia Anemia Assessment/Plan Acute respiratory failure secondary to COVID-19, currently intubated. Management per medical services COPD exacerbation Sinus tachycardia, likely d/t respiratory failure and severe anemia. Continue to monitor. Anemia, transfuse, continue to monitor. UTI-management per medical services tobaccoism Thank you for allowing us to participate in the management of Ms. Vela. This is Falguni Yañez PA-C, as a scribe for Dr. Malik. Patient was seen and evaluated, I discussed with Falguni management plan and agree with the current scribed note Patient is currently intubated secondary to COVID-19 pneumonia and has underlying COPD, tobaccoism I was called for evaluation for sinus tachycardia, improved after intubation Recommend monitoring H&H, continue with antibiotics Continue with vent management after transfer to intensive care unit Monitor blood pressure and electrolytes. FALGUNI JACOBS Dec 16, 2020 12:15 ALFREDO MALIK MD Dec 16, 2020 14:44
[2020-12-16] MEDS ORDERED: NOREPINEPHRINE 8 MG/250 ML 250 ML IV ONE (12:54)
--- NOTE | 2020-12-16 12:55 | Progress Note ---
Standard Progress Note Progress Notes/Assess & Plan Date Seen by a Provider: Dec 16, 2020 Time Seen by a Provider: 12:54 Progress/Assessment & Plan hypotensive after intubation, propofol and fentanyl dose have been reduced, did not repsond much to saline bolus 500 mL, will add IV levophed thru PICC line Natalio Piña MD Final Diagnosis COVID PNA, acute/chornic hypoxic resp faillure Focused Exam Lactate Level 12/15/20 00:10: Lactic Acid Level 1.17 ROBERTO CARLOS PIÑA MD Dec 16, 2020 12:55
[2020-12-16] MEDS ORDERED: NOREPINEPHRINE 8 MG/250 ML 250 ML IV SCH (13:00)
[2020-12-16] MEDS: UMECLIDINIUM BROMIDE (INCRUSE ELLIPTA) 7'S IH SCH (13:11)
[2020-12-16] MEDS ORDERED: SUCCINYLCHOLINE INJ 100 MG/5 ML SYR/VIAL INJ ONE (13:16)
[2020-12-16] MEDS ORDERED: meTOprolol 5 MG/5 ML (LOPRESSOR) VIAL ONE (16:25)
[2020-12-16] MEDS ORDERED: meTOprolol 5 MG/5 ML (LOPRESSOR) VIAL IV ONE (16:30)
[2020-12-16] MEDS ORDERED: NS (IVPB) 100 ML ONE (16:47)
[2020-12-16 16:54] LABS: BASOPHILS % (AUTO) 0 % (0-10); EOSINOPHILS % (AUTO) 0 % (0-10); HEMATOCRIT 28 % (35-52); HEMOGLOBIN 8.2 g/dL (11.5-16.0); LYMPHOCYTES # (AUTO) 0.4 10^3/uL (1.0-4.0); LYMPHOCYTES % (AUTO) 8 % (12-44); MEAN CORPUSCULAR HGB CONC 29 g/dL (32-36); MEAN CORPUSCULAR VOLUME 78 fL (80-99); MEAN PLATELET VOLUME 10.2 fL (9.0-12.2); MONOCYTES # (AUTO) 0.2 10^3/uL (0.0-1.0); MONOCYTES % (AUTO) 3 % (0-12); NEUTROPHILS % (AUTO) 88 % (42-75); PLATELET COUNT 203 10^3/uL (130-400); WHITE BLOOD COUNT 5.6 10^3/uL (4.3-11.0)
[2020-12-16 16:56] LABS: MEAN CORPUSCULAR HEMOGLOBIN 22 pg (25-34)
[2020-12-16] MEDS ORDERED: VASOPRESSIN INJECTION 20 UNIT in NS (IVPB) 100 ML IV SCH ×2 (17:00→18:45)
--- NOTE | 2020-12-16 17:16 | Progress Note ---
Standard Progress Note Progress Notes/Assess & Plan Date Seen by a Provider: Dec 16, 2020 Time Seen by a Provider: 17:15 Progress/Assessment & Plan for last one hour BP has become very labile as high as SBP 200 and as low as 50, Will get CXR to make sure no PMNTX though as BS in both lungs using just IV levophed to control BP when low Daughter contacted about goals of care, she wants to make pt DNR Focused Exam Lactate Level 12/15/20 00:10: Lactic Acid Level 1.17 ROBERTO CARLOS PIÑA MD Dec 16, 2020 17:16
[2020-12-16 17:17] LABS: POTASSIUM 3.9 MMOL/L (3.6-5.0)
[2020-12-16 17:18] LABS: CALCIUM 7.4 MG/DL (8.5-10.1)
[2020-12-16 17:22] LABS: CREATININE SERUM 0.65 MG/DL (0.60-1.30)
[2020-12-16 17:25] LABS: ANISOCYTOSIS MODERATE; BAND NEUTROPHILS 0 %; BASOPHILS % (MANUAL) 0 %; ELLIPT/OVALOCYTES SLIGHT; EOSINOPHILS % (MANUAL) 0 %; HYPOCHROMASIA MODERATE; LYMPHOCYTES % (MANUAL) 3 %; MICROCYTOSIS SLIGHT; MONOCYTES % (MANUAL) 5 %; NEUTROPHILS % (MANUAL) 92 %; POIKILOCYTOSIS SLIGHT; POLYCHROMASIA SLIGHT
--- NOTE | 2020-12-16 17:42 | Diagnostic Imaging Report ---
EXAM: Chest 1 view, AP/PA only INDICATION: Pneumonia. COMPARISON: Chest radiograph performed earlier today at 11:01 AM. FINDINGS: NG tube tip and side-port in stomach. ETT tip midway between the level of clavicles and [place]. Right PICC tip mid SVC. Diffuse bilateral airspace opacities are similar to earlier today. No large pleural effusion or pneumothorax. No acute osseous finding. IMPRESSION: 1. Persistent multifocal airspace opacities in both lungs are similar to earlier today. 2. Support lines in the expected positions. Dictated by: Dictated on workstation # [id number]
[2020-12-16] MEDS ORDERED: RT-ALBUTEROL/IPRATROPIUM 3 ML (DUONEB) VIAL INH PRN (21:00)
[2020-12-16] MEDS ORDERED: BISACODYL 10 MG SUPP (DULCOLAX) PR PRN (21:00)
[2020-12-16] MEDS ORDERED: NS IV 1000 ML 1,000 ML IV PRN (21:00)
[2020-12-16] MEDS ORDERED: ONDANSETRON 4 MG/2 ML (SDV) Z0FRAN IVP PRN (21:00)
[2020-12-16] MEDS ORDERED: ACETAMINOPHEN 650 MG SUPP (TYLENOL) PR PRN (21:00)
[2020-12-16] MEDS ORDERED: ARTIFICAL TEARS 0.4 ML UNIT DOSE (REFRESH PLUS) OU PRN (21:00)
[2020-12-16] MEDS ORDERED: PROMETHAZINE INJ 25 MG/ML (PHENERGAN) AMP IVP PRN (21:00)
[2020-12-16] MEDS ORDERED: SALIVA STIMULANT MOUTH SPRAY (BIOTENE) 1.5 OZ MM PRN (21:00)
[2020-12-16] MEDS ORDERED: morphine INJ 4 MG/ML 1 ML (VIAL/SYRINGE) IV PRN (21:00)
[2020-12-16] MEDS: cefTRIAXone 1,000 MG/SWFI 10 ML IV PUSH IV SCH ×2 (21:15)
--- NOTE | 2020-12-16 22:08 | Progress Note ---
Subjective Subjective/Events-last exam Significant decompensation this AM. Patient placed on bipap and moved to ICU. Patient Alert and oriented. Spoke with patient regarding intubation and she desires intubation if she needs it. Discussed with her severe lung disease that she will likely not be able to extubate and patient voices understanding. Review of Systems Pulmonary: Dyspnea, Cough Cardiovascular: Palpitations; No: Chest Pain Gastrointestinal: No: Nausea, Vomiting, Abdominal Pain Neurological: Weakness, Incoordination Focused Exam Lactate Level 12/15/20 00:10: Lactic Acid Level 1.17 Objective Exam Last Set of Vital Signs Vital Signs Date Time Temp Pulse Resp B/P (MAP) Pulse Ox O2 Delivery O2 Flow Rate FiO2 12/16/20 19:55 86 162/85 12/16/20 18:00 96 High Flow N/C 6.00 12/16/20 16:12 45 12/16/20 16:02 36.0 16 Capillary Refill : Less Than 3 Seconds I&O Intake and Output 12/16/20 00:00 Intake Total 770 ml Output Total 300 ml Balance 470 ml Intake Oral 660 ml IV Total 110 ml Output Urine Total 300 ml # Voids 2 # Bowel Movements 2 Daily Weight Change Yes, Unsure # of pounds General: Alert, Oriented X3, Severe Distress Lungs: Other (diminished breath sounds, Accessory muscle use with breathing) Heart: Other (tachycardic rate, ECG with sinus tachycardia) Extremities: No Edema, No Tenderness/Swelling Results/Procedures Lab Laboratory Tests 12/16/20 05:05: White Blood Count 5.4, Red Blood Count 3.32L, Hemoglobin 6.8*L, Hematocrit 25L, Mean Corpuscular Volume 75L, Mean Corpuscular Hemoglobin 20L, Mean Corpuscular Hemoglobin Concent 27L, Red Cell Distribution Width 17.7H, Platelet Count 163, Mean Platelet Volume 12.1, Immature Granulocyte % (Auto) 1, Neutrophils (%) (Auto) 82H, Lymphocytes (%) (Auto) 14, Monocytes (%) (Auto) 3, Eosinophils (%) (Auto) 0, Basophils (%) (Auto) 0, Neutrophils # (Auto) 4.4, Lymphocytes # (Auto) 0.8L, Monocytes # (Auto) 0.2, Eosinophils # (Auto) 0.0, Basophils # (Auto) 0.0, Immature Granulocyte # (Auto) 0.0, Percent Immature Platelet Fraction 7.0, Sodium Level 140, Potassium Level 3.5L, Chloride Level 108H, Carbon Dioxide Level 25, Anion Gap 7, Blood Urea Nitrogen 9, Creatinine 0.53L, Estimat Glomerular Filtration Rate 116, BUN/Creatinine Ratio 17, Glucose Level 85, Calci um Level 7.6L, Corrected Calcium 8.5, Iron Level 10L, Total Iron Binding Capacity 276, Unsaturated Iron Binding Capacity 266, Transferrin % Saturation 4L , Ferritin 96.0, Total Bilirubin 0.1, Aspartate Amino Transf (AST/SGOT) 29, Alanine Aminotransferase (ALT/SGPT) 15, Alkaline Phosphatase 67, Total Protein 5.3L, Albumin 2.9L, Triglycerides Level 121, Procalcitonin 0.08 12/16/20 08:11: D-Dimer 1.12H 12/16/20 09:27: Blood Gas Puncture Site R RAD, Blood Gas Patient Temperature 36.6, Arterial Blood pH 7.27*L, Arterial Blood Partial Pressure CO2 58H, Arterial Blood Partial Pressure O2 94H, Arterial Blood HCO3 26, Arterial Blood Total CO2 27.7, Arterial Blood Oxygen Saturation 98, Arterial Blood Base Excess -0.3, Robby Test YES-POS, Blood Gas Ventilator Setting NO, Blood Gas Inspired Oxygen 60% 12/16/20 11:39: Glucometer 118H 12/16/20 16:40: Sodium Level 140, Potassium Level 3.9, Chloride Level 108H, Carbon Dioxide Level 22, Anion Gap 10, Blood Urea Nitrogen 11, Creatinine 0.65, Estimat Glomerular Filtration Rate 92, BUN/Creatinine Ratio 17, Glucose Level 138H, Calcium Level 7.4L 12/16/20 16:48: White Blood Count 5.6, Red Blood Count 3.65L, Hemoglobin 8.2#L, Hematocrit 28L, Mean Corpuscular Volume 78L, Mean Corpuscular Hemoglobin 22L, Mean Corpuscular Hemoglobin Concent 29L, Red Cell Distribution Width 20.2H, Platelet Count 203, Mean Platelet Volume 10.2, Immature Granulocyte % (Auto) 1, Neutrophils (%) (Auto) 88H, Lymphocytes (%) (Auto) 8L, Monocytes (%) (Auto) 3, Eosinophils (%) (Auto) 0, Basophils (%) (Auto) 0, Neutrophils # (Auto) 5.0, Lymphocytes # (Auto) 0.4L, Monocytes # (Auto) 0.2, Eosinophils # (Auto) 0.0, Basophils # (Auto) 0.0, Immature Granulocyte # (Auto) 0.1, Neutrophils % (Manual) 92, Lymphocytes % (Manual) 3, Monocytes % (Manual) 5, Eosinophils % (Manual) 0, Basophils % (Manual) 0, Band Neutrophils 0, Polychromasia SLIGHT, Hypochromasia MODERATE, Poikilocytosis SLIGHT, Anisocytosis MODERATE, Microcytosis SLIGHT, Macrocytosis MODERATE, Elliptocytes SLIGHT 12/16/20 17:36: Glucometer 148H Microbiology 12/15/20 Urine Culture - Preliminary, Resulted Escherichia coli 12/15/20 Blood Culture - Preliminary, Resulted No growth Assessment/Plan Assessment/Plan (1) Acute respiratory failure due to COVID-19 Status: Acute Assessment & Plan: - Steroids, MAT protocol, IV antibiotics, Lovenox 12/16: Bipap with sats in the low 90s, transfer to ICU, patient desires intubation, discussed with patient with her chronic lung dz she is very high risk, Patient intubated 1155 this AM. Called to inform family and left message to return call (2) COPD exacerbation Status: Acute (3) UTI (urinary tract infection) Status: Acute Assessment & Plan: - Culture pending, IV antbiotics Qualifiers: Qualified Codes: N39.0 - Urinary tract infection, site not specified (4) Hypothyroidism Status: Chronic Assessment & Plan: - Continue home meds (5) Microcytic anemia Status: Acute Assessment & Plan: 12/16: Transfused 1 pRBC today (6) Hypertension Status: Chronic (7) Hypokalemia Status: Acute Assessment & Plan: - Replace and repeat BMP in AM 12/16: ICU protocol (8) Tobacco abuse Status: Chronic Assessment & Plan: - Encouraged continued cessation OLIVA ALMODOVAR MD Dec 16, 2020 22:08
[2020-12-17] MEDS: GLYCOPYRROLATE 0.2 MG/ML (ROBINUL) 2 ML VIAL IV PRN ×4 (01:55→21:04)
[2020-12-17] MEDS: LORazepam INJ 2 MG/ML (ATIVAN) VIAL IVP PRN ×6 (01:57→21:04)
[2020-12-17] MEDS: RT-ALBUTEROL HFA 8.5 GM INHALER IH SCH (02:38)
[2020-12-17] MEDS: NS IV 500 ML 500 ML IV SCH (03:42)
[2020-12-17] MEDS: UMECLIDINIUM BROMIDE (INCRUSE ELLIPTA) 7'S IH SCH (07:53)
[2020-12-17] MEDS ORDERED: GLYCOPYRROLATE 0.2 MG/ML (ROBINUL) 2 ML VIAL IV PRN (08:45)
--- NOTE | 2020-12-17 08:52 | Cardiology Progress Note ---
Subjective Date Seen by Provider: Dec 17, 2020 Time Seen by Provider: 08:50 Subjective/Events-last exam Patient was seen at bedside, laying down comfortably. Extubated and currently on comfort care Review of Systems General: Other (Unable to provide review of systems) Focused Exam Lactate Level 12/15/20 00:10: Lactic Acid Level 1.17 Objective-Cardiology Exam Last Set of Vital Signs Vital Signs 12/16/20 12/16/20 12/17/20 12/17/20 16:02 20:00 01:00 07:54 Temp 36.0 Pulse 105 Resp 16 B/P (MAP) 159/83 (108) Pulse Ox 98 O2 Delivery Room Air O2 Flow Rate 45.00 FiO2 45 I&O Intake and Output 12/17/20 00:00 Intake Total 1010 ml Output Total 180 ml Balance 830 ml Intake Oral 0 ml IV Total 1010 ml Output Urine Total 180 ml # Voids 2 # Bowel Movements 1 Extremities: No Edema, No Tenderness/Swelling Other physical findings Patient was not examined today, she is in isolation and on comfort care Results Lab Laboratory Tests 12/16/20 16:40 12/16/20 16:48 A/P-Cardiology Admission Diagnosis COVID-19 Acute respiratory failure COPD Sinus tachycardia Anemia Assessment/Plan Acute respiratory failure secondary to COVID-19, sedated and on comfort care COPD exacerbation Sinus tachycardia, likely d/t respiratory failure and severe anemia. Continue to monitor. Anemia, transfuse, continue to monitor. UTI-management per medical services tobaccoism Patient was extubated, currently on comfort care, I will sign off, please feel free to reconsult if needed, thank you for allowing me to consult in the management of Mrs. Vela ALFREDO JIMÉNEZ MD Dec 17, 2020 08:52
[2020-12-17] MEDS ORDERED: fentaNYL INJ 100 MCG/2 ML AMP ONE ×2 (08:53→10:53)
[2020-12-17] MEDS ORDERED: ENOXAPARIN 40 MG/0.4 ML (LOVENOX) SYR SC SCH (09:00)
[2020-12-17] MEDS: fentaNYL INJ 100 MCG/2 ML AMP IVP PRN ×6 (09:01→21:05)
--- NOTE | 2020-12-17 09:14 | Tele-ICU Progress Note ---
Subjective Date Seen by a Provider: Dec 17, 2020 Time Seen by a Provider: 11:14 Subjective/Events-last exam Now terminally extubated not awake, on RA BP 132/70 to go to floor Sepsis Event Evaluation Height, Weight, BMI Height: 5'2.00" Weight: 117lbs. 0.0oz. 53.697245hn; 23.61 BMI Method:Stated Focused Exam Lactate Level 12/15/20 00:10: Lactic Acid Level 1.17 Exam Exam Patient acknowledged, consented, and participated in this virtual visit which was conducted using real time audio/video Vital Signs Date Time Temp Pulse Resp B/P (MAP) Pulse Ox O2 Delivery O2 Flow Rate FiO2 12/17/20 07:54 Room Air 12/17/20 04:00 Room Air 12/17/20 01:00 105 12/17/20 00:00 Room Air 12/16/20 20:00 87 159/83 (108) 98 Mechanical Ventilator 45.00 12/16/20 20:00 92 Mechanical Ventilator 45 12/16/20 19:55 86 162/85 12/16/20 19:00 88 186/95 (125) 97 Mechanical Ventilator 45.00 12/16/20 19:00 88 12/16/20 18:48 65 57/34 12/16/20 18:00 65 57/34 (42) 96 High Flow N/C 6.00 12/16/20 17:00 86 107/54 (71) 97 High Flow N/C 6.00 12/16/20 16:12 92 Mechanical Ventilator 45 12/16/20 16:08 85 160/79 12/16/20 16:08 85 160/79 12/16/20 16:07 85 160/79 12/16/20 16:02 36.0 85 16 160/79 94 Mechanical Ventilator 45 12/16/20 16:00 36.0 12/16/20 16:00 85 175/88 (117) 95 High Flow N/C 6.00 12/16/20 15:00 85 127/73 (91) 95 High Flow N/C 6.00 12/16/20 14:03 36.2 86 18 106/58 94 Mechanical Ventilator 60 12/16/20 14:00 87 103/56 (72) 93 High Flow N/C 6.00 12/16/20 13:46 36.3 87 18 100/54 93 Mechanical Ventilator 60 12/16/20 13:12 104 17 97 45 12/16/20 13:00 96 72/45 (54) 98 High Flow N/C 6.00 12/16/20 12:36 101 12/16/20 12:10 92 Mechanical Ventilator 60 12/16/20 12:01 103 100/56 12/16/20 12:00 103 103/56 (72) 97 High Flow N/C 6.00 12/16/20 11:40 37.2 12/16/20 11:15 112 87/49 (62) 94 High Flow N/C 6.00 12/16/20 10:45 121 16 91 60 12/16/20 10:00 118 112/83 (93) 97 High Flow N/C 6.00 I & O 12/17/20 07:00 Intake Total 0 ml Output Total 405 ml Balance -405 ml Height & Weight Height: 5'2.00" Weight: 117lbs. 0.0oz. 53.797057wx; 23.61 BMI Method:Stated General Appearance: Other (sedated and intubated) HEENT: PERRL/EOMI, Normal ENT Inspection Neck: Normal Inspection Respiratory: Crackles, Respiratory Distress, Rhonci, Wheezing Cardiovascular: Regular Rate, Rhythm, No Edema, No Gallop, No JVD, No Murmur, Normal Peripheral Pulses, Tachycardia Capillary Refill: Less Than 3 Seconds Gastrointestinal: normal bowel sounds, non tender, soft, no organomegaly Extremity: Normal Inspection, No Pedal Edema Neurologic/Psychiatric: Alert, Oriented x3, No Motor/Sensory Deficits, Normal Mood/Affect, case management manager II-XII Norm as Tested Results Lab Laboratory Tests 12/16/20 05:05 12/16/20 16:40 12/16/20 16:48 Assessment/Plan Assessment/Plan terminal extubation,, comfort care, pt DN/DNI Critical Care: Critically Ill Patient Time spent with patient (mins): 5 ROBERTO CARLOS PIÑA MD Dec 17, 2020 09:14
--- NOTE | 2020-12-17 10:05 | Physical Therapy Progress Note ---
Therapy Progress Note Patient currently on comfort care. No PT. SALAS ASHTON PT Dec 17, 2020 10:05
[2020-12-17] MEDS ORDERED: MIDAZOLAM 2 MG/2 ML (VERSED) VIAL IVP ONE (11:00)
--- NOTE | 2020-12-17 22:03 | Progress Note ---
Subjective Subjective/Events-last exam Patient resting comfortably. Comfort care Review of Systems Unable to answer due to clinical condition Focused Exam Lactate Level 12/15/20 00:10: Lactic Acid Level 1.17 Objective Exam Last Set of Vital Signs Vital Signs Date Time Temp Pulse Resp B/P (MAP) Pulse Ox O2 Delivery O2 Flow Rate FiO2 12/17/20 08:00 Nasal Cannula 2.00 12/17/20 01:00 105 12/16/20 20:00 159/83 (108) 98 12/16/20 20:00 45 12/16/20 16:02 36.0 16 Capillary Refill : Less Than 3 Seconds I&O Intake and Output 12/17/20 00:00 Intake Total 1010 ml Output Total 180 ml Balance 830 ml Intake Oral 0 ml IV Total 1010 ml Output Urine Total 180 ml # Voids 2 # Bowel Movements 1 General: Other (resting comfortably) Lungs: Other (increased work of breathing) Heart: Regular Rate Abdomen: Soft Extremities: Other (cyanosis in finger tips and toes) Results/Procedures Lab Microbiology 12/16/20 Gram Stain - Final, Resulted 12/16/20 Sputum Culture - Preliminary, Resulted YEAST 12/15/20 Urine Culture - Final, Complete Escherichia coli 12/15/20 Blood Culture - Preliminary, Resulted No growth Assessment/Plan Assessment/Plan (1) Acute respiratory failure due to COVID-19 Status: Acute Assessment & Plan: - Steroids, MAT protocol, IV antibiotics, Lovenox 12/16: Bipap with sats in the low 90s, transfer to ICU, patient desires intubation, discussed with patient with her chronic lung dz she is very high risk, Patient intubated 1155 this AM. Called to inform family and left message to return call 12/17: Patient was extubated, comfort care order set, family on the way (2) COPD exacerbation Status: Acute (3) UTI (urinary tract infection) Status: Acute Assessment & Plan: - Culture pending, IV antbiotics Qualifiers: Qualified Codes: N39.0 - Urinary tract infection, site not specified (4) Hypothyroidism Status: Chronic Assessment & Plan: - Continue home meds (5) Microcytic anemia Status: Acute Assessment & Plan: 12/16: Transfused 1 pRBC today (6) Hypertension Status: Chronic (7) Hypokalemia Status: Acute Assessment & Plan: - Replace and repeat BMP in AM 12/16: ICU protocol (8) Tobacco abuse Status: Chronic Assessment & Plan: - Encouraged continued cessation OLIVA ALMODOVAR MD Dec 17, 2020 22:03
[2020-12-18] MEDS: fentaNYL INJ 100 MCG/2 ML AMP IVP PRN ×7 (01:58→21:13)
[2020-12-18] MEDS: LORazepam INJ 2 MG/ML (ATIVAN) VIAL IVP PRN ×5 (03:01→21:12)
--- NOTE | 2020-12-18 07:22 | Progress Note - Hospitalist ---
Subjective HPI/CC On Admission Date Seen by Provider: Dec 18, 2020 Time Seen by Provider: 12:00 Subjective/Events-last exam Patient comatose End-of-life care Updated daughter who requested a call from me questioning whether she did the right thing to allow comfort care and extubation since now she is still alive. She had spoken to a local roofing supervisor and he had recommended initiating an ethics committee consult if there was a question. She is staying at the physician's house while she is in town. I explained that she had received aggressive ICU care and intubation and powerful medication can maintain life for certain amount of time but she had severe decline in status up to this point that she was terminal. Will provide supportive care in the meantime. I also conferred with admitting physician and were all in agreement she is terminal. Objective Exam Vital Signs Vital Signs Date Time Temp Pulse Resp B/P (MAP) Pulse Ox O2 Delivery O2 Flow Rate FiO2 12/18/20 20:00 Room Air 12/17/20 08:00 2.00 12/17/20 01:00 105 12/16/20 20:00 159/83 (108) 98 12/16/20 20:00 45 12/16/20 16:02 36.0 16 Capillary Refill : Less Than 3 Seconds General Appearance: No Apparent Distress, Other (Comatose) Results/Procedures Lab Patient resulted labs reviewed. Assessment/Plan Assessment and Plan Assess & Plan/Chief Complaint Assessment: End-of-life care Severe COPD Smoking Substance abuse issues Plan: End-of-life care Patient is terminal Critical Care Critically Ill Patient JAGDEEP HAYNES DO Dec 18, 2020 07:22
[2020-12-19] MEDS: fentaNYL INJ 100 MCG/2 ML AMP IVP PRN ×4 (02:28→16:30)
[2020-12-19] MEDS: LORazepam INJ 2 MG/ML (ATIVAN) VIAL IVP PRN ×4 (08:22→21:26)
[2020-12-19] MEDS: GLYCOPYRROLATE 0.2 MG/ML (ROBINUL) 2 ML VIAL IV PRN ×2 (10:21→16:43)
--- NOTE | 2020-12-19 11:49 | PM&R Progress Note ---
Subjective HPI/CC On Admission Date Seen by Provider: Dec 19, 2020 Objective Exam Vital Signs Vital Signs Date Time Temp Pulse Resp B/P (MAP) Pulse Ox O2 Delivery O2 Flow Rate FiO2 12/19/20 20:00 Room Air 12/17/20 08:00 2.00 12/17/20 01:00 105 12/16/20 20:00 159/83 (108) 98 12/16/20 20:00 45 12/16/20 16:02 36.0 16 Capillary Refill : Less Than 3 Seconds General Appearance: No Apparent Distress, Other (Comatose) HEENT: PERRL/EOMI, Normal ENT Inspection Neck: Normal Inspection Respiratory: Crackles, Respiratory Distress, Rhonci, Wheezing Cardiovascular: Regular Rate, Rhythm, No Edema, No Gallop, No JVD, No Murmur, Normal Peripheral Pulses, Tachycardia Extremity: Normal Inspection, No Pedal Edema Neurologic/Psychiatric: Alert, Oriented x3, No Motor/Sensory Deficits, Normal Mood/Affect, mobile designer II-XII Norm as Tested Results/Procedures Lab Patient resulted labs reviewed. [facility]IM Transfers Therapy Code Descriptions/Definitions Functional [place] Measure: 0=Not Assessed/NA 4=Minimal Assistance 1=Total Assistance 5=Supervision or Setup 2=Maximal Assistance 6=Modified [place] 3=Moderate Assistance 7=Complete IndependenceSCALE: Activities may be completed with or without assistive devices. 6-Lakcxxzedb-gruykrk completes the activity by him/herself with no assistance from a helper. 5-Set-up or Clean-up Assistance-helper sets up or cleans up; patient completes activity. Norton assists only prior to or following the activity. 4-Supervision or Touching Assistance-helper provides verbal cues and/or touching/steadying and/or contact guard assistance as patient completes activity. Assistance may be provided throughout the activity or intermittently. 3-Partial/Moderate Assistance-helper does LESS THAN HALF the effort. Norton lifts, holds or supports trunk or limbs, but provides less than half the effort. 2-Substantial/Maximal Assistance-helper does MORE THAN HALF the effort. Norton lifts or holds trunk or limbs and provides more than half the effort. 2-Dbldszqqq-okpmje does ALL the effort. Patient does none of the effort to complete the activity. Or, the assistance of 2 or more helpers is required for the patient to complete the activity. If activity was not attempted, code reason: 7-Patient Refused. 9-Not Applicable-not attempted and the patient did not perform the activity before the current illness, exacerbation or injury. 10-Not Attempted due to Environmental Limitations-(lack of equipment, weather restraints, etc.). 88-Not Attempted due to Medical Conditions or Safety Concerns. Assessment/Plan Assessment and Plan Assess & Plan/Chief Complaint Assessment: End-of-life care Severe COPD Smoking Substance abuse issues Plan: End-of-life care Patient is terminal Critical Care Critical Care: Critically Ill Patient JAGDEEP HAYNES DO Dec 19, 2020 11:49
--- NOTE | 2020-12-20 06:25 | Discharge Summary ---
Discharge Summary Hospital Course Was the Problem List Reviewed?: Yes Problems/Dx: (1) Acute respiratory failure due to COVID-19 Status: Acute (2) Tobacco abuse Status: Chronic (3) COPD exacerbation Status: Acute (4) Smoker Status: Acute Hospital Course Date of Admission: Dec 15, 2020 at 01:58 Admission Diagnosis : [place] Physician/[place] [place] Date of Discharge: 12/20/20 Discharge Diagnosis: COVID-19 PNA, end stage COPD< smoker, unvaccinated against COVID-19, LOKESH, severe debility Hospital Course: Patient was admitted for acute respiratory failure on chronic respiratory failure with end-stage COPD who continues to smoke and unvaccinated against COVID-19 who was diagnosed with COVID-19 pneumonia and progressed and rapidly declined the decision was made due to futility of aggressive care to go to comfort care protocol. Patient had a short course patient was kept comfortable and on 12/19/2020 Labs and Pending Lab Test: Microbiology 12/16/20 Gram Stain - Final, Complete 12/16/20 Sputum Culture - Final, Complete YEAST Usual upper respiratory darek 12/15/20 Urine Culture - Final, Complete Escherichia coli 12/15/20 Blood Culture - Preliminary, Resulted No growth Home Meds Active Reported Levothyroxine Sodium 175 Mcg Tablet 175 Mcg PO DAILY Tylenol (Acetaminophen) 325 Mg Tablet 650 Mg PO Q6H PRN Trelegy Ellipta 100-62.5-25 (Fluticasone/Umeclidin/Vilanter) 1 Each Blst.w.dev 1 Puff INH DAILY Ventolin Hfa (Albuterol Sulfate) 18 Gm Hfa.aer.ad 2 Puff INH Q4H PRN Assessment/Pt Instructions Discharge Planning: <30 minutes discharge planning Discharge Instructions Discharge Diet: No Restrictions Discharge Physical Examination Vital Signs Vital Signs Date Time Temp Pulse Resp B/P (MAP) Pulse Ox O2 Delivery O2 Flow Rate FiO2 12/19/20 20:00 Room Air 12/17/20 08:00 2.00 12/17/20 01:00 105 12/16/20 20:00 159/83 (108) 98 12/16/20 20:00 45 12/16/20 16:02 36.0 16 General Appearance: Other () Allergies: Coded Allergies: oxycodone HCl (Verified Adverse Reaction, Severe, BLACK OUT, 07/18/20) morphine (Verified Adverse Reaction, Intermediate, Blackout, 07/18/20) Discharge Summary Date of Admission Dec 15, 2020 at 01:58 Date of Discharge Dec 20, 2020 at 01:00 Comfort Measures/ End of Life Care: Comfort Measures Time spent on discussion (min): 0 Discharge Diagnosis Assessment: End-of-life care Severe COPD Smoking Substance abuse issues Plan: End-of-life care Patient is terminal JAGDEEP HAYNES DO Dec 20, 2020 06:25
== END 2020-12-20 01:00 | disposition expired | DRG 208 ==
LOC: EDUNIT# 00:07 → ER 00:09 → CSD 01:58 → ICU 12-16 07:42 → 4TH 12-17 12:29
PROVIDERS: ADMIT Family Medicine; ATTEND Internal Medicine
PROC: 5A1935Z Respiratory Ventilation, Less than 24 Consecutive Hours (ICD-10-PCS; 2020-12-15)
PROC: 5A09357 Assistance with Respiratory Ventilation, Less than 24 Consecutive Hours, Continuous Positive Airway Pressure (ICD-10-PCS; principal; 2020-12-16)
PROC: 0BH17EZ Insertion of Endotracheal Airway into Trachea, Via Natural or Artificial Opening (ICD-10-PCS; 2020-12-16)
DX: U07.1 COVID-19 (principal); J96.21 Acute and chronic respiratory failure with hypoxia; J12.82 Pneumonia due to coronavirus disease 2019; J44.1 Chronic obstructive pulmonary disease with (acute) exacerbation; N39.0 Urinary tract infection, site not specified; B96.20 Unspecified Escherichia coli [E. coli] as the cause of diseases classified elsewhere; Z51.5 Encounter for palliative care; Z66 Do not resuscitate; E03.9 Hypothyroidism, unspecified; E87.6 Hypokalemia; D50.9 Iron deficiency anemia, unspecified; I10 Essential (primary) hypertension; R00.0 Tachycardia, unspecified; B00.9 Herpesviral infection, unspecified; G89.29 Other chronic pain; M51.36 Other intervertebral disc degeneration, lumbar region; M16.0 Bilateral primary osteoarthritis of hip; F41.9 Anxiety disorder, unspecified; M81.0 Age-related osteoporosis without current pathological fracture; Z85.3 Personal history of malignant neoplasm of breast; Z99.81 Dependence on supplemental oxygen; Z79.899 Other long term (current) drug therapy; Z79.891 Long term (current) use of opiate analgesic; Z92.3 Personal history of irradiation; Z92.21 Personal history of antineoplastic chemotherapy; Z85.72 Personal history of non-Hodgkin lymphomas; Z87.891 Personal history of nicotine dependence; Z73.0 Burn-out
CPT/HCPCS: 36415; 36569; 71045; 71275; 76937; 80048; 80053; 81000; 82728; 82805; 82947; 83540; 83550; 83605; 84145; 84478; 85007; 85025; 85027; 85379; 85610; 85730; 86141; 86850; 86900; 86901; 86920; 87040; 87070; 87077; 87088; 87186; 87205; 93005; 94002; 94640; 94660; 94799; 96374; 96375